=== PATIENT | male | born 1945 | race Caucasian/White ===

== ENCOUNTER → 2016-05-27 | Outpatient (CLI) | payer OTHER ==
--- NOTE | 2016-05-27 13:58 | DIAGNOSTIC IMAGING REPORT ---
RIGHT FOOT MIN 3 VIEWS ROUTINE CLINICAL HISTORY: Right foot pain COMPARISON: None. DISCUSSION: No acute fractures are visualized. There is mild osteopenia. There are mild osteoarthritic changes the level the first metatarsal phalangeal joint. There are no erosive or destructive changes. There is a prominent plantar calcaneal spur. There are posterior plantar fascial calcifications. There is a tiny 2 insertional calcification. IMPRESSION: 1. Minor degenerative changes the level the first metatarsal phalangeal joint 2. No acute fractures 3. No erosive or destructive changes are visualized 4. Calcaneal spurring Electronically signed by: Boni Guthrie M.D. 05/27/2016 1:56 PM Dictated Date/Time: 05/27/2016 1:55 PM
== END | disposition home or self-care (01) ==
LOC: C.RAD1850 13:36
PROVIDERS: ATTEND Internal Medicine Cardiovascular Disease
DX: M79.673 Pain in unspecified foot (principal)

== ENCOUNTER → 2017-04-13 | Outpatient (CLI) | payer OTHER ==
[2017-04-13 10:48] LABS: INFLUENZA B ANTIGEN Neg for Influ B (NEG)
== END | disposition home or self-care (01) ==
LOC: C.LAB1850 09:46
PROVIDERS: ATTEND Internal Medicine Pulmonary Disease
DX: R50.9 Fever, unspecified (principal)

== ENCOUNTER 2018-09-14 07:23 | Observation (INO) ==
[2018-09-14] MEDS ORDERED: CEFAZOLIN 1,000 MG/7.5 ML IV PUSH IV ONE (08:15)
[2018-09-14] MEDS ORDERED: LIDOCAINE HCL 1% 20 ML VIAL ONE (08:22)
[2018-09-14] MEDS ORDERED: BUPIVACAINE 0.5 % 5 MG/1 ML PF 10ML VIAL ONE ×2 (08:22→08:28)
[2018-09-14] MEDS ORDERED: BACITRACIN INJ 50,000 UNIT VIAL ONE (08:23)
[2018-09-14] MEDS ORDERED: LACTATED RINGER'S 1,000 ML IV SCH (08:30)
--- NOTE | 2018-09-14 08:33 | History & Physical Bridge Note ---
Date of Service September 14, 2018 History & Physical Bridge Note I have examined the patient, reviewed the History & Physical and in the interval since the performance of the History & Physical I have noted the following changes of clinical significance: no changes noted
--- NOTE | 2018-09-14 08:35 | Pre Anesthesia Assessment ---
Date of Service September 14, 2018 Pre Sedation Assessment Vital Signs Temp Pulse Resp BP Pulse Ox 09/14/18 07:46 36.4 C L 43 L 18 167/79 H 96 Cardiovascular + bradycardic Respiratory + respiratory effort normal Pre-Sedation Airway Assessment Smoking Status: Never smoker Hx Sleep Apnea: No Hx Difficult Intubation: No Short, Thick Neck: No Thyromental Distance: > or= 3.5 Finger Breadths Oral Cavity: + WNL Mallampati Class: III ASA: ASA3 Procedure Planning Contraindications for Sedation: none Current Medications Reviewed: Yes Notes The planned sedation has been discussed with the patient. Informed Consent was obtained. I have identified the patient, determined the appropriateness of sedation and have assessed the patient immediately prior to the procedure. All medicine(s) and interventions are by my order.
[2018-09-14] MEDS ORDERED: fentaNYL citrate 100 MCG/2 ML VIAL ONE (08:37)
[2018-09-14] MEDS ORDERED: MIDAZOLAM HCL 5 MG/ML 1 ML VIAL ONE (08:37)
[2018-09-14] MEDS ORDERED: CEFAZOLIN 250 MG/ML 1 GM VIAL ONE (08:59)
[2018-09-14] MEDS ORDERED: OXYCODONE HCL IR 5 MG TAB (IMMEDIATE RELEASE) PO PRN (10:23)
[2018-09-14] MEDS ORDERED: ACETAMINOPHEN 325 MG TAB PO PRN (10:23)
--- NOTE | 2018-09-14 10:23 | Procedure Note ---
Procedure Note Date of Service September 14, 2018 Note Procedure performed: Implantation of dual-chamber permanent pacemaker Staff stone repairer: Cody Justice MD Indication: The patient is a 73-year-old gentleman with a recent history of exercise intolerance, fatigue and bradycardia. He is noted on outpatient monitoring to have severe bradycardia and 2-1 heart block with significant for history and conduction disease. He still be a good candidate for a permanent pacemaker due to symptomatic nonreversible AV node dysfunction. A dual-chamber device was selected as patient is currently in sinus rhythm and wished to maintain AV synchrony Procedure in detail: The patient was informed of the risks benefits and alternatives to the intended procedure and she wished to proceed. He was taken to the electrophysiology suite in a fasting state. A preoperative antibiotic had been administered. The patient was monitored electrocardiographically throughout today's procedure and conscious sedation was administered per protocol. The left upper pectoral area is prepped and draped in usual sterile fashion. This area was anesthetized using subcutaneous administration of a xylocaine solution. An incision was made at this site and carried down to the prepectoralis fascia using sharp dissection. Electrocautery was also employed for dissection as well as for hemostasis. A device pocket was fashioned tissues above the pectoralis muscle. Subsequent to this maneuver the left axillary vein was accessed using modified Seldinger technique. Sheaths were placed over guidewires at this site and used to facilitate passage of the pacing leads to the respective chambers under fluo roscopic guidance. This included right atrial and right ventricular leads. Adequate sensing and threshold parameters were obtained prior to Active fixation of the leads to the endocardial surface. The proximal portion leads were then sutured the prepectoral fascia using nonabsorbable suture. The device pocket was irrigated with antibiotic solution. The leads were then attached to the device. The device and leads were then placed in the pocket and pocket was closed in 3 layers of absorbable suture. Steri-Strips and sterile dressing were applied. The device was tested noninvasively prior to conclusion the procedure. The patient tolerated procedure well there no immediate complications. Equipment used: New pulse generator: Porcelain Mixer Medtronic. Model number: [id number] erendira lakeisha hendrix [id number] Right atrial lead: Porcelain Mixer Medtronic. Model number: [id number] serial number [id number] Right ventricular lead: Porcelain Mixer Medtronic. Model number: [id number] serial number [id number] Measured data: Right atrial lead: P waves measured 1.4 mV. Pacing thresholds 0.8 V at 0.4 ms with pacing impedance of 461 ohms Right ventricular lead: R waves measured 4.1 mV. Pacing threshold 1 V at 0.4 ms with a pacing impedance of 798 ohms Impression: Successful implantation of dual-chamber permanent pacemaker Coding
[2018-09-14] MEDS ORDERED: PNEUMOCOCCAL POLYSACCHARIDES 25 MCG/0.5 ML VIAL/SYR IM ONE (12:15)
[2018-09-14] MEDS ORDERED: PNEUMOCOCCAL ADMINISTRATION CHARGE ONE (12:15)
[2018-09-14] MEDS ORDERED: ZOLPIDEM TARTRATE 5 MG TAB PO PRN (17:24)
[2018-09-14] MEDS: CEFAZOLIN 2000MG 2,000 MG/15 ML SYR IV SCH (17:44)
[2018-09-15] MEDS: CEFAZOLIN 2000MG 2,000 MG/15 ML SYR IV SCH (02:38)
--- NOTE | 2018-09-15 07:27 | XRay Report ---
XR chest 2V routine CLINICAL HISTORY: Pacemaker. COMPARISON STUDY: No previous studies for comparison. FINDINGS: Dual-lead left subclavian pacemaker is in place. There is no pneumothorax. Lead tips projec t over the right atrial appendage and right ventricle. There are trace bilateral pleural effusions wi th subtle interstitial thickening. Mild to moderate cardiomegaly is noted. No consolidation to sugges t pneumonia. IMPRESSION: 1. No pneumothorax following placement of a dual-lead left subclavian pacemaker. 2. Mild interstitial pulmonary edema with trace bilateral pleural effusions. 3. Mild to moderate cardiomegaly. Electronically signed by: Joshua Piña M.D. 09/15/2018 7:25 AM
--- NOTE | 2018-09-15 07:57 | Discharge Summary ---
Date of Service September 15, 2018 Admission HPI Per Admitting Provider Patient is a 73-year-old gentleman without any known cardiac history who is been experiencing symptoms of fatigue and mild exercise intolerance. He was noted on outpatient monitoring to have evidence of Mobitz 2 conduction. Principal Diagnosis Heart block Discharge Exam On the day of discharge the device implant site appear to be healing well. No hematoma. No significant erythema. No ecchymosis or drainage. Lungs: Mostly clear to auscultation bilaterally. Discharge Data Allergies Allergy/AdvReac Type Severity Reaction Status Date / Time No Known Allergies Allergy Verified 09/14/18 08:08 Procedures Performed Operation Date: 09/14/18 09:00 Actual Procedures p Pacer with A/V Leads (Dual) - Dudley Justice MD Ordered Studies 09/14/18 07:30 EP Lab Images for PACS ONCE Hospital Course (1) Heart block: On the day of admission the patient underwent implantation of a dual- chamber Medtronic pacemaker. The procedure was uncomplicated. The next morning the wound appeared to be healing well. Chest x-ray did not demonstrate any evidence of complication or pneumothorax. Lead position appeared adequate. Device interrogation revealed normal function of both leads. Total Time Total Time Spent Total Time Spent (In Minutes): 10 Total Time Includes: Examination of the Patient and Medication Reconciliation Discharge Plan Discharge Items Patient Disposition: Home - Self-Care Reason For Visit: DUAL CHAMBER PACEMAKER Discharge Diagnosis: heart block Discharge Goals: Therapeutic intervention Activity: Per 'Additional Instructions' section Activity Comment: No lifting left arm above shoulder or behind neck for 6 weeks Lifting: No more than 10 pounds Bathing: Keep incision dry Driving/Machine Use: No limitations Non-emergency contact: Timber Framer Call non-emergency contact if: your pain is worsening, you have a fever, your wound has increased redness and your wound has increased drainage Follow-up/Referrals: Quentin Sawant MD [Primary Care Provider] - Diet: Regular Addtl Provider Instructions: Keep wound dry and steri-strip intact until f/u next week. No lifitng left arm above shoulder or behind neck for 6 weeks. Prescriptions: No Action No Known Home Medications RF: 0 Stand-Alone Forms: [facility] [employer] Discharge Orders: Discharge Order (Routine); Ordered 09/15/18 Ordered By: Dudley Justice Admission Data Admit Date/Time: 09/14/18 10:41 Attending Provider: Dudley Justice Admit Provider: Dudley Justice Primary Care Provider: Quentin Sawant Service: Telemetry Other Pending Studies at Discharge: No
== END 2018-09-15 09:45 | disposition home or self-care (01) ==
LOC: 2S 07:23 → ASU 07:23

== ENCOUNTER 2021-03-10 09:45 | Inpatient (IN) ==
[2021-03-10] MEDS ORDERED: SODIUM CHLORIDE 0.9% 1000ML 1,000 ML IV STA (10:29)
[2021-03-10 11:07] LABS: Basophils # (auto) 0.01 K/uL (0-0.2); Basophils % (auto) 0.1 %; Eosinophils # (auto) 0.01 K/uL (0-0.5); Eosinophils % (auto) 0.1 %; Hematocrit (blood only) 41.6 % (42-52); Hemoglobin 13.7 g/dL (14.0-18.0); Immature Granulocytes # (auto) 0.01 K/uL (0.00-0.02); Immature Granulocytes % (auto) 0.1 %; Lymphocytes # (auto) 0.78 K/uL (1.2-3.4); Lymphocytes % (auto) 11.3 %; Mean Corpuscular Hemoglobin 31.6 pg (25-34); Mean Corpuscular Hgb Conc 32.9 g/dL (32-36); Mean Corpuscular Volume 96.1 fL (80-100); Mean Platelet Volume 11.5 fL (7.4-10.4); Monocytes # (auto) 0.37 K/uL (0.11-0.59); Monocytes % (auto) 5.4 %; Neutrophils # (auto) 5.71 K/uL (1.4-6.5); Platelet Count 156 K/uL (130-400); RDW Coefficient of Variation 15.5 % (11.5-14.5); RDW Standard Deviation 54.1 fL (36.4-46.3); Red Blood Count 4.33 M/uL (4.7-6.1); White Blood Count 6.89 K/uL (4.8-10.8)
--- NOTE | 2021-03-10 11:07 | XRay Report ---
SINGLE VIEW CHEST CLINICAL HISTORY: Generalized abdominal pain. FINDINGS: An AP, portable, upright chest radiograph is compared to study dated 09/15/2018. A 2-lead ca rdiac pacemaker is unchanged in position and partially obscures the left upper chest. The heart is en larged noting atherosclerotic calcification of the thoracic aorta. The pulmonary vasculature is nonco ngested. Chronic interstitial thickening is similar to previous. Scarring/atelectasis is noted at the lung bases. No airspace consolidation or large pleural effusion is identified. No pneumothorax is se en. The skeletal structures are osteopenic. The bony thorax is grossly intact. IMPRESSION: 1. Cardiomegaly and cardiac pacemaker with no radiographic evidence of congestive failure. 2. No airspace consolidation or large pleural effusion is identified. ACT 112: Negative or not required by law. Electronically signed by: Luis Daniel Marques M.D. 03/10/2021 11:05 AM
[2021-03-10 11:35] LABS: Albumin Globulin Ratio 1.1 (0.9-2); Albumin Level 3.7 gm/dl (3.4-5.0); Calcium 9.5 mg/dl (8.5-10.1); Creatinine Clr Calc Pharmacy 71.5 ml/min; Est GFR (African American) 84.2 ml/min; Est GFR (Non-African American) 72.6 ml/min; Globulin 3.5 gm/dl (2.5-4.0); Potassium 4.9 mmol/L (3.5-5.1); Total Protein 7.2 gm/dl (6.4-8.2); Troponin I 0.105 ng/ml (0-0.045)
[2021-03-10] MEDS ORDERED: OPTIRAY 320 100ml IV ONE (12:00)
--- NOTE | 2021-03-10 12:35 | CT Scan Report ---
ABDOMEN AND PELVIS CT WITH IV CONTRAST CT DOSE: 662.21 mGy.cm HISTORY: Subacute upper abdominal pain R>L upper abd pain x 2 weeks TECHNIQUE: Multiaxial CT images of the abdomen and pelvis were performed following the IV administrat ion of 91 cc of Optiray, A dose lowering technique was utilized adhering to the principles of ALARA. COMPARISON STUDY: Abdominal ultrasound 03/09/2021 FINDINGS: Cardiac megaly with partially imaged pacer leads. Small right greater than left pleural eff usions with mild dependent subsegmental bibasilar atelectasis. Pulmonary edema. 5 mm solid nodule the basal left lower lobe, image 38. 4 mm solid nodule of the lateral segment right middle lobe. There i s no pneumatosis or pneumoperitoneum. The spleen, pancreas and adrenal glands are unremarkable. Gallb ladder distention with cholelithiasis and mild wall thickening. Hepatic steatosis. Mixing artifact is noted within the portal vein. Cysts of the bilateral kidneys measure up to 3.5 cm on the right. 7.4 x 7.0 x 6.3 cm exophytic cyst o f the superior pole left kidney with a calcified septation. There is no hydronephrosis. Prostamegaly. Urinary bladder wall thickening with partial distention. Atherosclerosis of the aorta without aneury sm. No adenopathy. No bowel obstruction or bowel wall thickening. Colonic diverticulosis without acute diverticulitis. N ormal appendix. Small volume of abdominal pelvic ascites with mild generalized body wall edema. 1.6 c m subcortical cyst of the right pubic body. Moderate bilateral hip osteoarthritis. Bilateral hip join t effusions are likely degenerative, right greater than left with associated periarticular calcificat ions. IMPRESSION: 1. Cardiomegaly with fluid overload manifested by pulmonary edema, small layering pleural effusions, small volume of abdominal pelvic ascites with body wall edema. 2. Cholelithiasis with gallbladder distention and mild wall thickening which may be secondary to the aforementioned fluid overload versus acute cholecystitis. 3. Mildly complex 7.4 cm cyst of the left kidney. 4. Prostamegaly with chronic bladder outlet obstruction. 5. Colonic diverticulosis. 6. Additional findings as above. ACT 112: Negative or not required by law. The above report was generated using voice recognition software. It may contain grammatical, syntax o r spelling errors. Electronically signed by: Cory Asher M.D. 03/10/2021 12:33 PM
--- NOTE | 2021-03-10 13:18 | Emergency Department Note ---
Impression & Plan Elevated troponin, Cholelithiasis, Cardiomegaly, Fluid overload, Hyperbilirubinemia ED Provider Note CHIEF COMPLAINT: Epigastric pain, cholelithiasis HPI: This patient is a 76-year-old male who presents emergency department with complaints of right upper quadrant abdominal pain intermittently over the last 2 weeks. Patient states the pain initially started on the left upper side of the abdomen and felt like renal colic he had had in the past. The only thing different was that he was nauseated and "nearly vomited." Patient states that sometimes after eating the pain actually is better, but shortly thereafter is worsened. Patient did start Prilosec which he thinks helped. He is concerned that he may be suffering from gallstone pancreatitis. He did see his mounter smoking pipe yesterday ordered laboratory work and an ultrasound of the right upper quadrant. The patient is noted to have cholelithiasis. Patient notes a history of heart block and does have a pacemaker. He denies any significant chest pain or dyspnea with exertion. He denies any recent fevers, chills, cough. REVIEW OF SYSTEMS: A review of systems was performed with positives and pertinent negatives listed in the history of present illness. 10 systems were reviewed and are otherwise negative. ALLERGIES: see below MEDICATIONS: see below PMH: see below SOCIAL HISTORY: see below DDx: Appendicitis, diverticulitis, UTI, obstruction, mesenteric ischemia, aortic pathology, inflammatory bowel disease, renal colic, PUD, pancreatitis, biliary pathology, hernia, volvulus, constipation, as well as other pathologies. PHYSICAL EXAM: Vital signs reviewed. General: Well-appearing 76 yo male, in no significant distress. HEENT: No scleral icterus, PERRLA, neck supple. Moist mucous membranes. Cardiovascular: Regular rate and rhythm, no extra sounds. Pulmonary: Faint crackles to the bases bilaterally, normal work of breathing. Saturating well on room air. Abdomen: Soft, nontender, nondistended, positive bowel sounds. Musculoskeletal: Atraumatic, no peripheral edema. Neurologic: Patient awake alert and oriented x 3 Skin: Warm, dry, no rash EMERGENCY DEPARTMENT COURSE/MDM: This patient was evaluated and appeared to be in no significant distress. IV access was obtained and laboratory work was drawn. Patient was placed on the cardiac tech and noted to be in a ventricular paced rhythm. Laboratory work reveals normal WBC, hemoglobin of just under 14. Troponin is mildly elevated at 0.1 with a bilirubin of 3.0. Ct scan of the abdomen pelvis was performed and read as low with fluid overload noted. Bilateral pleural effusions are noted. Case was discussed with general surgery, Dr. Nunez who evaluated the patient. Abnormal laboratory work was discussed with both the patient and the hospitalist service, Dr. Parks and Carlos Alberto Martini PA-C. Patient's certified income tax preparer, Dr. Torres was updated to the findings. Patient will be evaluated for admission and further management. Etiology of the abdominal discomfort may be related to the gallbladder however he does have a history of elevated bilirubin. I do feel that further cardiac evaluation will be necessary. MONITORING: An order for cardiac monitoring was placed and the patient is noted to be in a ventricularly paced rhythm at 50 beats per minute. RADIOLOGY: see below EKG: see below DISPOSITION: admit Past Med/Surg History Medical History Cardiomegaly Cholelithiasis Elevated troponin Heart block Hyperbilirubinemia Pilonidal cyst RUQ abdominal pain Social History Smoking Status: Never smoker Hx Alcohol Use: Yes Alcohol type: wine Hx Substance Use: No Preferred Language: Swedish Communication Ability: Effective Machine Tailer Required: No Beliefs That Will Affect Care: None Current Living Situation: Spouse Feels Safe at Home: Yes Assistive Devices: Glasses Allergies Allergies Allergy/AdvReac Type Severity Reaction Status Date / Time No Known Allergies Allergy Verified 03/10/21 10:49 Home Meds Home Medications Medication Instructions Recorded Confirmed No Known Home Medications 09/25/20 03/10/21 Results & Data (ED) Vital Signs Vital Signs - 24 hr 03/10/21 09:49 03/10/21 10:52 03/10/21 11:33 Temperature 36.5 C Temperature Source Oral Pulse Rate 84 Pulse Rate [Right Finger] 52 L Pulse Rhythm [Right Finger] Regular Pulse Strength [Right Finger] Normal Respiratory Rate 16 16 Respiratory Effort / Characteristics Non-Labored Non-Labored Respiratory Depth Normal Normal Blood Pressure 146/82 H Blood Pressure [Right Arm] 135/97 Blood Pressure Mean 103 Blood Pressure Mean [Right Arm] 109 Blood Pressure Position [Right Arm] Sitting Pulse Oximetry 97 99 Oxygen Delivery Method Room Air Room Air Room Air Sepsis Recent Fever Within 48 Hours No Sepsis New/Unexplained Change in Mental Status No Sepsis Action Taken by Nursing No Action Required Home Medications Current Medication List: was personally reviewed by me Laboratory Data Attestation: I reviewed the patient's lab results. Result diagrams: 03/10/21 10:45 03/10/21 10:45 Lab Results 03/10/21 03/10/21 03/10/21 Range/Units 10:45 10:45 10:50 WBC 6.89 (4.8-10.8) K/uL RBC 4.33 L (4.7-6.1) M/uL Hgb 13.7 L (14.0-18.0) g/dL Hct 41.6 L (42-52) % MCV 96.1 (80-100) fL MCH 31.6 (25-34) pg MCHC 32.9 (32-36) g/dL RDW Std Deviation 54.1 H (36.4-46.3) fL RDW Coeff of Mariel 15.5 H (11.5-14.5) % Plt Count 156 (130-400) K/uL MPV 11.5 H (7.4-10.4) fL Immature Gran % (Auto) 0.1 % Neut % (Auto) 83.0 % Lymph % (Auto) 11.3 % Brantley % (Auto) 5.4 % Eos % (Auto) 0.1 % Baso % (Auto) 0.1 % Neut # (Auto) 5.71 (1.4-6.5) K/uL Lymph # (Auto) 0.78 L (1.2-3.4) K/uL Brantley # (Auto) 0.37 (0.11-0.59) K/uL Eos # (Auto) 0.01 (0-0.5) K/uL Baso # (Auto) 0.01 (0-0.2) K/uL Immature Gran # (Auto) 0.01 (0.00-0.02) K/uL Sodium 139 (136-145) mmol/L Potassium 4.9 D (3.5-5.1) mmol/L Chloride 109 H (98-107) mmol/L Carbon Dioxide 23 (21-32) mmol/L Anion Gap 7.0 (3-11) BUN 16 (7-18) mg/dl Creatinine 0.99 (0.6-1.4) mg/dl Est Cr Clr Drug Dosing 71.5 ml/min Est GFR ( Amer) 84.2 ml/min Est GFR (Non-Af Amer) 72.6 ml/min BUN/Creatinine Ratio 16.0 (10-20) Glucose 104 H (70-99) mg/dl Calcium 9.5 (8.5-10.1) mg/dl Total Bilirubin 3.0 H (0.2-1) mg/dl AST 32 (15-37) U/L ALT 40 (12-78) Alkaline Phosphatase 58 (45-117) U/L Troponin I 0.105 H* (0-0.045) ng/ml Total Protein 7.2 (6.4-8.2) gm/dl Albumin 3.7 (3.4-5.0) gm/dl Globulin 3.5 (2.5-4.0) gm/dl Albumin/Globulin Ratio 1.1 (0.9-2) Lipase 145 (73-393) U/L SARS-CoV-2, RNA, NAAT NEGATIVE (NEGATIVE) Administered Medications Sodium Chloride (Nss 1000ml) 1,000 mls @ 80 mls/hr IV .[id number] EDUARDO Stop: 03/11/21 16:30 Last Admin: 03/10/21 17:02 Dose: 125 mls/hr Documented by: [id number] Discontinued Medications Sodium Chloride (Nss 1000ml) 1,000 mls @ 100 mls/hr IV .Q10H STA Stop: 03/10/21 20:28 Last Infusion: 03/10/21 17:05 Dose: 0 mls/hr Documented by: [id number] Infusion: 03/10/21 17:05 Dose: 0 mls/hr Documented by: [id number] Admin: 03/10/21 10:47 Dose: 100 mls/hr Documented by: [id number] Piperacillin Sod/Tazobactam (Sod 3.375 gm/ Dextrose) 115 mls @ 230 mls/hr IV NOW ONE; Protocol Stop: 03/10/21 17:29 Last Infusion: 03/10/21 18:11 Dose: 0 mls/hr Documented by: [id number] Admin: 03/10/21 17:36 Dose: 230 mls/hr Documented by: [id number] Ioversol (Optiray 320 100ml) 91 ml IV ONCE ONE Stop: 03/10/21 12:01 Last Admin: 03/10/21 12:01 Dose: 91 ml Documented by: [id number] Imaging Data Radiologist's Impression: Chest X-Ray 03/10/21 10:29 SINGLE VIEW CHEST CLINICAL HISTORY: Generalized abdominal pain. FINDINGS: An AP, portable, upright chest radiograph is compared to study dated 09/15/2018. A 2-lead cardiac pacemaker is unchanged in position and partially obscures the left upper chest. The heart is enlarged noting atherosclerotic calcification of the thoracic aorta. The pulmonary vasculature is noncongested. Chronic interstitial thickening is similar to previous. Scarring/atelectasis is noted at the lung bases. No airspace consolidation or large pleural effusion is identified. No pneumothorax is seen. The skeletal structures are osteopenic. The bony thorax is grossly intact. IMPRESSION: 1. Cardiomegaly and cardiac pacemaker with no radiographic evidence of duane estive failure. 2. No airspace consolidation or large pleural effusion is identified. ACT 112: Negative or not required by law. Electronically signed by: Luis Daniel Marques M.D. 03/10/2021 11:05 AM Abdomen/Pelvis CT 03/10/21 11:[address] WITH IV CONTRAST CT DOSE: 662.21 mGy.cm HISTORY: Subacute upper abdominal pain R>L upper abd pain x 2 weeks TECHNIQUE: Multiaxial CT images of the abdomen and pelvis were performed following the IV administration of 91 cc of Optiray, A dose lowering technique was utilized adhering to the principles of ALARA. COMPARISON STUDY: Abdominal ultrasound 03/09/2021 FINDINGS: Cardiac megaly with partially imaged pacer leads. Small right greater than left pleural effusions with mild dependent subsegmental bibasilar atelectasis. Pulmonary edema. 5 mm solid nodule the basal left lower lobe, image 38. 4 mm solid nodule of the lateral segment right middle lobe. There is no pneumatosis or pneumoperitoneum. The spleen, pancreas and adrenal glands are unremarkable. Gallbladder distention with cholelithiasis and mild wall thickening. Hepatic steatosis. Mixing artifact is noted within the portal vein. Cysts of the bilateral kidneys measure up to 3.5 cm on the right. 7.4 x 7.0 x 6.3 cm exophytic cyst of the superior pole left kidney with a calcified septation. There is no hydronephrosis. Prostamegaly. Urinary bladder wall thickening with partial distention. Atherosclerosis of the aorta without aneurysm. No adenopathy. No bowel obstruction or bowel wall thickening. Colonic diverticulosis without acute diverticulitis. Normal appendix. Small volume of abdominal pelvic ascites with mild generalized body wall edema. 1.6 cm subcortical cyst of the right pubic body. Moderate bilateral hip osteoarthritis. Bilateral hip joint effusions are likely degenerative, right greater than left with associated periarticular calcifications. IMPRESSION: 1. Cardiomegaly with fluid overload manifested by pulmonary edema, small layering pleural effusions, small volume of abdominal pelvic ascites with body wall edema. 2. Cholelithiasis with gallbladder distention and mild wall thickening which may be secondary to the aforementioned fluid overload versus acute cholecystitis. 3. Mildly complex 7.4 cm cyst of the left kidney. 4. Prostamegaly with chronic bladder outlet obstruction. 5. Colonic diverticulosis. 6. Additional findings as above. ACT 112: Negative or not required by law. The above report was generated using voice recognition software. It may contain grammatical, syntax or spelling errors. Electronically signed by: Cory Asher M.D. 03/10/2021 12:33 PM Blood Pressure Blood Pressure Findings: Elevated blood pressure Blood Pressure Disposition: further management by hospitalist Discharge Plan Visit Data Chief Complaint: Abdominal Pain Stated Complaint: ABD PAIN ED Provider: Adelaide Ye Discharge Problem: Elevated troponin, Cholelithiasis, Cardiomegaly, Fluid overload, Hyperbilirubinemia Patient Disposition: Admitted As Inpatient Discharge Instructions Interventions: ED Discharge Assessment Last Done: 03/10/21 16:07 Discharge Problem: Cholelithiasis Qualifiers: Cholelithiasis location: gallbladder Cholecystitis presence: without cholecystitis Biliary obstruction: without biliary obstruction Qualified Code(s): K80.20 - Calculus of gallbladder without cholecystitis without obstruction Fluid overload Qualifiers: Hypervolemia type: unspecified Qualified Code(s): E87.70 - Fluid overload, unspecified
--- NOTE | 2021-03-10 13:54 | History & Physical Report ---
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 Nunez tomorrow for a cholecystectomy. Patient does not appear to be septic nor is he febrile. His total bilirubin is elevated, but he has a history of Giilbert's disease. His ALT and AST are within normal limits, he does not appear to have significant biliary obstruction. Dr. Hewitt is involved in his care. Dr. Nunez has already met with the patient in the ER. Recommend the following: -- Patient will be admitted to observation status. -- Monitor daily labs. -- No need for ERCP or MRCP with normal transaminase levels. -- IV Zosyn. -- Antiemetics as needed. -- Clear liquid diet, NPO at midnight. -- Plan on cholecystectomy tomorrow. (3) Hyperbilirubinemia: Plan: He has a history of Gilbert's disease but total bilirubin is up to 3.0 now, small amount of ascites on imaging. (4) Elevated troponin: Plan: He is noted to have an elevated Troponin I and his EKG shows newly diagnosed Atrial Flutter with a V paced rhythm. He is completely asymptomatic from a cardiac standpoint -- most likely because his rate is controlled, he is paced from the RV. -- His [id number] is 3 based on his age and atherosclerosis of the aorta. -- residential anticoagulation is indicated, but will defer until after surgery. -- Echocardiogram ordered. (5) Cardiomegaly: Plan: Patient with small bilateral pleural effusion, ascites on imaging, and he paces from the RV most of the time resulting in a wide QRS duration (194 msec) -- Echocardiogram ordered to evaluate cardiac structure, wall motion, and cardiac function. (6) New onset atrial flutter: Plan: His EKG shows newly diagnosed Atrial Flutter with a V paced rhythm. He is completely asymptomatic from a cardiac standpoint -- most likely because his rate is controlled, he is paced from the RV. -- His [id number] is 3 based on his age and atherosclerosis of the aorta. -- long term care social worker anticoagulation is indicated, but will defer until after surgery. History of Present Illness Chief Complaint: 1. RUQ pain. 2. Symptomatic Cholelithiasis/Cholecystitis. 3. Elevated Troponin I. Primary Care Provider: MD Dr. 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 Patient had the onset of a sharp left-sided abdominal pain approximately 2 weeks ago, he suspected that it was ureteral colic and that he was going to pass a kidney stone. He had 1 episode of this that evening, and had recurrent left sided abdominal pain which seemed to be further down and has lower abdomen. He did not pass any stones to his knowledge. However, over the ensuing days, the patient noticed some discomfort, fullness in the RUQ and intermittent nausea without vomiting. He states that his abdomen feels distended, but it does not look distended to him. He and his ate lunch at a [place] restaurant and he had their chicken soup (he stated it was a rather heavy meal, somewhat like a stew). following that meal, he noticed an increase in his right upper quadrant discomfort and some nausea. At its worst, he rates the pain as a 5/10 on a scale of 0-10. the discomfort does not radiate into his right shoulder blade, or his back. He is uncertain if it radiates to his right shoulder or right lateral chest because of his torn right rotator cuff causing symptoms in his right shoulder and lateral chest at times. Sometimes his symptoms seem to be exacerbated by eating, and other times they do not. He has not had any prolonged episodes of discomfort. He has not had any vomiting at all. He denies any fevers, chills, or rigors. He has not had any change in his bowel habits -- no diarrhea or constipation. He has not had any melena or hematochezia. Patient has not had any urinary symptoms despite having his left- sided "renal colic" nor did he notice any hematuria. Patient took [id number] Omeprazole x 5 days but is uncertain if this helped him in any way. Patient does not otherwise take any medications on a routine basis. He has no known drug allergies. 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 Patient's family history includes both his paternal grandfather and his father dying of pancreatic cancer at advanced ages. Patient has been working with Dr. Hewitt in Gastroenterology regarding the symptoms. A RUQ Ultrasound performed on 03/09/2021 showed: The liver is diffusely homogenous with normal contour and echogenicity. No focal mass lesions are seen. No intrahepatic ductal dilatation is seen. Linear hyperechoic foci with posterior shadowing are identified layering dependently within the gallbladder, which are consistent with gallstones. The gallbladder wall is not thickened. There is no pericholecystic fluid present. The common duct measures 0.4 cm in diameter at the level of the hepatic artery. The pancreas is not well visualized secondary to overlying bowel gas. Right kidney measures 12.2 cm in length. No hydronephrosis is seen. There are multiple renal cysts, measuring up to 2.5 x 3.3 x 2.4 cm with thin septations. Small amount of ascites is seen throughout the abdomen. IMPRESSION: Cholelithiasis is seen without renee bladder wall thickening. Patient does note mild pain with pressure. Findings are equivocal for acute cholecystitis. Because of ongoing symptoms and the presence of symptomatic cholelithiasis -- patient was advised to come into the emergency room for further evaluation, surgical evaluation and treatment. Evaluation in the ER shows a mild anemia with a hemoglobin of 13.7 g/dL and hematocrit of 41.6%. WBC is within normal limits. BUN is normal at 16 mg/dL with a creatinine of 0.99 mg/dL. His total bilirubin is elevated at 3.0 mg/dL with a normal AST of 32 u/L and a normal ALT of 40 u/L. Lipase level is normal at 145 u/L. Patient's Troponin I level is elevated at 0.105 ng/mL -- but he has not had any cardiac or limiting cardiopulmonary symptoms whatsoever. Allergies Allergy/AdvReac Type Severity Reaction Status Date / Time No Known Allergies Allergy Verified 03/10/21 10:49 Home Medications Medication Instructions Recorded Confirmed Type No Known Home Medications 09/25/20 03/10/21 History Past Med/Surg History Medical History (Updated 03/10/21 @ 15:25 by Adelaide Ye MD) Cardiomegaly Cholelithiasis Elevated troponin Heart block Hyperbilirubinemia Pilonidal cyst RUQ abdominal pain Social History Smoking Status: Never smoker Beliefs That Will Affect Care: None Current Living Situation: Spouse Feels Safe at Home: Yes Assistive Devices: None Review of Systems Review of Systems: Review of systems is unremarkable with the exception of what is mentioned in his HPI. He is physically active on a daily basis and has not experienced any limiting cardiopulmonary symptoms at any time. He specifically denies any exertional chest pain, heaviness, tightness, pressure, or discomfort. Denies any exertional neck, jaw, back, or arm pain. He has not had any shortness of breath, unusual dyspnea on exertion, orthopnea, or PND. He has not had any recent palpitations. No syncope or near syncope. Patient can climb more than 3 flights of stairs with only mild stable dyspnea that anyone would experience walking up 3 flights of stairs. He recovers his breathing very quickly. Physical Exam Physical Exam: Vital signs are stable. GENERAL: Patient in no acute distress. HEENT: Head is atraumatic, normocephalic. Sclerae anicteric. EOM's intact. Facies symmetric. No perioral cyanosis. Mucous membranes appear tacky. NECK: No JVD. Carotid upstrokes are + 2 bilaterally without obvious bruits. CHEST/LUNGS: Clear to auscultation throughout all lung zuniga. No wheezes, rales, or crackles. CVS: S1 and S2 are regular, bradycardic at 52 bpm without obvious murmurs, gallops, or rubs. PMI is nondisplaced. No lifts, heaves, or thrills. No abdominal aortic or renal bruits. Palpable pacemaker generator present left subclavian fossa. ABDOMINAL EXAM: Bowel sounds are present. Abdomen does not appear to be disten ded. Mild tenderness to palpation in the right upper quadrant. No masses or organomegaly. EXTREMITIES: No clubbing or cyanosis. No edema. Intact posterior tibial and radial pulses bilaterally. NEUROLOGIC EXAM: Patient is awake, alert, and oriented. Pleasant and cooperative. Answers questions appropriately. Speech is clear. Normal movement in all 4 extremities. Gait pattern was not assessed. Temporary Administrative Assistant: -- V-paced rhythm. -- Uncertain underlying rhythm. EKG 03/10/21: -- Ventricular paced rhythm. -- Underlying rhythm appears to be atrial flutter. Results & Data Results & Data ([place]) Vital Signs (Past 12 Hours) Vital Signs Temp Pulse Pulse Resp BP BP Pulse Ox 03/10/21 11:33 52 L 16 135/97 99 03/10/21 09:49 36.5 C 84 16 146/82 H 97 Laboratory Results Laboratory Results - last 24 hr 03/10/21 03/10/21 03/10/21 10:45 10:45 10:50 WBC 6.89 RBC 4.33 L Hgb 13.7 L Hct 41.6 L MCV 96.1 MCH 31.6 MCHC 32.9 RDW Std Deviation 54.1 H RDW Coeff of Mariel 15.5 H Plt Count 156 MPV 11.5 H Immature Gran % (Auto) 0.1 Neut % (Auto) 83.0 Lymph % (Auto) 11.3 [place] % (Auto) 5.4 Eos % (Auto) 0.1 Baso % (Auto) 0.1 Neut # (Auto) 5.71 Lymph # (Auto) 0.78 L [place] # (Auto) 0.37 Eos # (Auto) 0.01 Baso # (Auto) 0.01 Immature Gran # (Auto) 0.01 Sodium 139 Potassium 4.9 D Chloride 109 H Carbon Dioxide 23 Anion Gap 7.0 BUN 16 Creatinine 0.99 Est Cr Clr Drug Dosing 71.5 Est GFR ( Amer) 84.2 Est GFR (Non-Af Amer) 72.6 BUN/Creatinine Ratio 16.0 Glucose 104 H Calcium 9.5 Total Bilirubin 3.0 H AST 32 ALT 40 Alkaline Phosphatase 58 Troponin I 0.105 H* Total Protein 7.2 Albumin 3.7 Globulin 3.5 Albumin/Globulin Ratio 1.1 Lipase 145 SARS-CoV-2, RNA, NAAT NEGATIVE Diagnostic Findings CT SCAN ABD/PELVIS 03/10/21: FINDINGS: Cardiomegaly with partially imaged pacer leads. Small right greater than left pleural effusions with mild dependent subsegmental bibasilar atelectas is. Pulmonary edema. 5 mm solid nodule the basal left lower lobe, image 38. 4 mm solid nodule of the lateral segment right middle lobe. There is no pneumatosis or pneumoperitoneum. The spleen, pancreas and adrenal glands are unremarkable. Gallbladder distention with cholelithiasis and mild wall thickening. Hepatic steatosis. Mixing artifact is noted within the portal vein. Cysts of the bilateral kidneys measure up to 3.5 cm on the right. 7.4 x 7.0 x 6.3 cm exophytic cyst of the superior pole left kidney with a calcified septation. There is no hydronephrosis. Prostamegaly. Urinary bladder wall thickening with partial distention. Atherosclerosis of the aorta without aneurysm. No adenopathy. No bowel obstruction or bowel wall thickening. Colonic diverticulosis without acute diverticulitis. Normal appendix. Small volume of abdominal pelvic ascites with mild generalized body wall edema. 1.6 cm subcortical cyst of the right pubic body. Moderate bilateral hip osteoarthritis. Bilateral hip joint effusions are likely degenerative, right greater than left with associated periarticular calcifications. IMPRESSION: 1. Cardiomegaly with fluid overload manifested by pulmonary edema, small laye ring pleural effusions, small volume of abdominal pelvic ascites with body wall edema. 2. Cholelithiasis with gallbladder distention and mild wall thickening which may be secondary to the aforementioned fluid overload versus acute cholecystitis. 3. Mildly complex 7.4 cm cyst of the left kidney. 4. Prostatomegaly with chronic bladder outlet obstruction. 5. Colonic diverticulosis. 6. Additional findings as above. Code Status & VTE Plan Code Status Full Code VTE Prophylaxis Plan VTE Prophylaxis will be ordered: Yes PG Care Time/CCT Total # of Minutes Spent Total Time Spent with Patient: Total time spent is greater than 50% in coordination of care (as documented) at patient's floor/unit and/or counseling patient:35 Coding Level of Care Code INT OBSERVATION CARE 70M LVL 3 Diagnoses Cholelithiasis K80.20 Biliary obstruction: without biliary obstruction Cholecystitis presence: without cholecystitis Cholelithiasis location: gallbladder Cholecystitis, acute K81.0 Hyperbilirubinemia E80.6 Elevated troponin R77.8 Cardiomegaly I51.7 New onset atrial flutter I48.92 Time Spent (min) 55 (1) Cholelithiasis Biliary obstruction: without biliary obstruction Cholecystitis presence: without cholecystitis Cholelithiasis location: gallbladder Qualified Code(s): K80.20 - Calculus of gallbladder without cholecystitis without obstruction
[2021-03-10 15:19] LABS: Appearance Urine Clear (Clear); Bacteria Urine Automated Negative (Negative); Blood Urine Negative (Negative); Color Urine Dark Yellow; Glucose Urine UA Negative (Negative); Ketones Urine 1+ (Negative); Leukocyte Esterase Urine Negative (Negative); Nitrite Urine Negative (Negative); Protein Urine 1+ (Negative); RBC Urine Automated 0-4 /hpf (0-4); Specific Gravity Urine > 1.045 (1.000-1.030); Urobilinogen Urine Negative (Negative)
[2021-03-10 15:25] LABS: Bilirubin Urine 1+ (Negative)
[2021-03-10] MEDS ORDERED: NITROGLYCERIN SL 0.4 MG/TAB TAB SL PRN (16:46)
[2021-03-10] MEDS ORDERED: MoRPHine SULFATE 2 MG/ML CARP IV PRN (16:46)
[2021-03-10] MEDS ORDERED: MAGNESIUM HYDROXIDE SUSP 30 ML UDC PO PRN (16:46)
[2021-03-10] MEDS ORDERED: ALUMINUM/MAGNESIUM SUSP 30 ML UDC PO PRN (16:46)
[2021-03-10] MEDS ORDERED: POLYETHYLENE (MIRALAX) 17 GM PACK PO PRN (16:46)
[2021-03-10] MEDS ORDERED: ZOLPIDEM TARTRATE 5 MG TAB PO PRN (16:46)
[2021-03-10] MEDS ORDERED: ONDANSETRON INJ 2 MG/ML 2 ML VIAL IV PRN ×2 (16:46→18:57)
[2021-03-10] MEDS ORDERED: KETOROLAC TROMETHAMINE 15 MG/ML VIAL IV PRN (16:46)
[2021-03-10] MEDS ORDERED: PIPERACILLIN/TAZOBACTAM 3.375 GM in DEXTROSE 5% 100 ML IV ONE (17:00)
[2021-03-10] MEDS: SODIUM CHLORIDE 0.9% 1000ML 1,000 ML IV SCH (17:02)
[2021-03-10] MEDS ORDERED: PNEUMOCOCCAL POLYSACCHARIDES 25 MCG/0.5 ML VIAL/SYR IM ONE (17:27)
--- NOTE | 2021-03-10 18:23 | Consultation Report ---
GASTROENTEROLOGY CONSULTATION DATE OF CONSULTATION: 03/10/2021. SEX: Male. RACE: . ATTENDING PHYSICIAN: Lb Parks MD. CONSULTING PHYSICIAN: Johny Hewitt DO. REASON FOR CONSULTATION: Right upper quadrant abdominal pain, nausea, questionable acute cholecystit is. 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 He described symptomatic biliary colic, which he states oc curred following meals and did have right upper quadrant abdominal pain, which he rated as a 4 to 5/1 0 in intensity, which did radiate to his right shoulder at times. He did have worsening nausea over t he past few weeks with this and it did awaken him a few times at night. He did try to use PPI therapy for 5 days, thinking that it may be reflux related, though he did not have significant symptom relie f. After speaking with him on the phone, I did ask him to undergo further testing with laboratory [facility] yesterday including an H and H of 14.0 and 43.2. A blood glucose level of 122, total bilirubin of 2.2, though the remainder of his liver panel and lipase were normal. He also underwent a right u pper quadrant ultrasound yesterday at [facility] and was noted to have cholelithiasis without renee gallbladder wall thickening. He did have mild pain with pressure during the exam. Findings wer e felt to be equivocal for acute cholecystitis. I subsequently discussed the case in detail with Dr. Nunez, who felt that Dr. 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 Upon arrival again he was noted to have a slightly elevated bilirubin of 3.0, though the remainder of his liver panel was normal. He continued to have right upper quadrant abdominal pain r adiating to his right shoulder and he did have a CT scan of the abdomen and pelvis with evidence of c holelithiasis with gallbladder distention and mild wall thickening. There was also noted to be cardi omegaly with fluid overload with pulmonary edema, bilateral pleural effusions and a small volume of a bdominopelvic ascites with body wall edema. He was also noted to have prostatomegaly with chronic bl adder outlet obstruction, mildly complex 7.4 cm cyst of the left kidney and colonic diverticulosis, t oneil no other findings. He was subsequently admitted. Dr. Nunez saw the patient in consultation and recommended laparoscopic cholecystectomy in the a.m. Patient denied any further complaints includin g headaches, blurred vision, syncope, seizures, loss of consciousness, chest pain, palpitation, short ness of breath, cough, dysuria, hematuria, arthralgias, myalgias, numbness or tingling in his extremi ties, skin rash, jaundice, acholic stools, dark urine, pruritus, dysphagia, odynophagia, hematemesis, melena, or hematochezia. He had no further complaints. PAST MEDICAL HISTORY: Significant for heart block, status post pacemaker placement, hyperbilirubinem ia, secondary to Gilbert syndrome, cardiomegaly, cholelithiasis, elevated troponin, new onset atrial flutter, history of pilonidal cyst. PAST SURGICAL HISTORY: Includes pacemaker placement. ALLERGIES: None. MEDICATIONS AT HOME: None. SOCIAL HISTORY: Lives with his . No tobacco or illicit drug use. He has an occasional alcoholi c beverage. FAMILY HISTORY: Negative for GI malignancy or inflammatory bowel disease. REVIEW OF SYSTEMS: As per the HPI. PHYSICAL EXAMINATION: VITAL SIGNS: Temperature 36.7, pulse 68, respirations 16, blood pressure 163/99, pulse ox 97% on marta m air. GENERAL: He is awake and cooperative, sitting up in his bed, eating a clear liquid diet. No acute d istress. HEENT: Head normocephalic, atraumatic. ABDOMEN: Soft, nondistended, no appreciable hepatosplenomegaly. LABORATORY STUDIES AND RADIOGRAPHIC STUDIES: Reviewed in the HPI. IMPRESSION: A 76-year-old male with acute cholecystitis for laparoscopic cholecystectomy i n the a.m. PLAN: I would recommend that the patient continue on IV antibiotics as per the primary team. I woul d recommend he continue on Zofran therapy as per the primary team. I would recommend that he undergo a laparoscopic cholecystectomy tomorrow with intraoperative cholangiogram for further evaluation of any choledocholithiasis, though none was seen on imaging studies today. I will follow his clinical c ourse and make further recommendations as needed. Once again, thanks for allowing me to participate in the care of this patient. If you have any furth er questions please do not hesitate contacting me. Job ID: [id number]
--- NOTE | 2021-03-10 20:02 | Surgery Consultation ---
Date of Consultation March 10, 2021 Assessment & Plan (1) Cholecystitis, acute: Patient has been admitted to the hospital. We will proceed as follows: Antibiotics have been ordered in the form of Zosyn which we will continue perioperatively Patient is allowed clear liquids at the present time. We will make him n.p.o. after midnight tonight. Hydration measures with IV fluids are implemented Analgesics will be provided Antiemetics will be provided Plans are to proceed with cholecystectomy tomorrow with Dr. Nunez. 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 Patient notes that in early February of this year he was having some left-sided abdominal pain that he felt may have represented renal colic. He said that this pain would come and go and ultimately resolved. He does report that he did not pass any kidney stones that he knows of. He subsequently developed right upper quadrant abdominal pain with intermittent nausea. He denies any fevers, shakes, chills. He denies any diarrhea. Patient notes that the symptoms would come and go but over the past 2 to 3 days have gotten markedly worse. Because of this he sought medical care with Dr. Johny Hewitt of gastroenterology. He subsequently underwent a gallbladder ultrasound on 03/09/2021 that showed cholelithiasis without renee gallbladder wall thickening. The study was felt to be equivocal for acute cholecystitis. Because of his ongoing symptoms he presented to the emergency department at [facility] today. It is no over the mention the patient says he has never had any prior abdominal surgeries. At today's emergency room visit the patient did have labs and imaging which I independently reviewed. A chest x-ray showed no evidence of airspace consolidation concerning for pneumonia and there is no evidence of congestive heart failure. He also underwent a CT scan of the abdomen and pelvis. This showed cholelithiasis with gallbladder wall distention and mild gallbladder wall thickening. Labs include a CBC her white blood cell count was noted be normal. His hemoglobin and hematocrit were 13.7 and 41.6. Platelet count was noted to be within the normal range. Chemistry profile showed sodium, potassium, BUN, and creatinine were all within the normal range. Patient was noted to have an elevated total bilirubin of 3.0 but he does report a history of Vick Bears disease. His transaminases and alkaline phosphatase were not elevated. Lipase was also not elevated. He did have a slight elevation of his troponin at 0.145. Urinalysis was not indicative of infection. A Covid test was known to be negative. An EKG showed a ventricularly paced rhythm. Patient notes that he leads an active lifestyle. He says he is able to ambulate up several flights of steps without any chest pain or decreased exercise capacity. At the time of my interview he was resting comfortably in bed. His pain was well controlled and he was in no distress. Allergies Allergy/AdvReac Type Severity Reaction Status Date / Time No Known Allergies Allergy Verified 03/10/21 10:49 Home Medications Medication Instructions Recorded Confirmed Type No Known Home Medications 09/25/20 03/10/21 History Patient History Medical History Cardiomegaly Cholelithiasis Elevated troponin Heart block Hyperbilirubinemia Pilonidal cyst RUQ abdominal pain Social History Smoking Status: Never smoker Hx Alcohol Use: Yes Alcohol type: wine Hx Substance Use: No Preferred Language: Kuwaiti Communication Ability: Effective Detective Bureau Chief Required: No Beliefs That Will Affect Care: None Current Living Situation: Spouse Feels Safe at Home: Yes Assistive Devices: Glasses Review of Systems Constitutional: no fever and no chills Eyes: no problem reported Ear, Nose, Mouth, Throat: no ear pain Respiratory: no cough and no dyspnea Cardiovascular: no chest pain Gastrointestinal: + abdominal pain, + nausea and + vomiting Genitourinary: no dysuria Integumentary: no rash Neurologic: no localized weakness Physical Exam Constitutional: well developed and well nourished; no acute distress Eyes: no conjunctival abnormality Corrective lenses and use ENMT: Ears: no hearing impairment Neck: trachea midline Respiratory: normal respiratory effort; no respiratory distress and no labored breathing Cardiovascular: Rate/Rhythm: regular rate and regular rhythm Gastrointestinal (Abdomen): Abdomen is soft and nondistended. There is no rebound tenderness or guarding. The patient did have pain with palpation in the right upper quadrant. Musculoskeletal: No calf tenderness Skin: no rashes Neurologic: moves all extremities Psychiatric: A+Ox3, euthymic affect Results & Data ([facility]) Vital Signs (Past 12 Hours) Vital Signs Temp Pulse Pulse Resp BP BP BP 03/10/21 19:12 36.7 C 54 L 18 136/84 03/10/21 16:15 36.7 C 68 18 163/99 H 03/10/21 16:07 51 L 16 121/82 03/10/21 13:00 50 L 16 130/86 03/10/21 11:33 52 L 16 135/97 03/10/21 09:49 36.5 C 84 16 146/82 H Pulse Ox 03/10/21 19:12 95 03/10/21 16:15 97 03/10/21 16:07 98 03/10/21 13:00 99 03/10/21 11:33 99 03/10/21 09:49 97 PG Care Time/CCT Total # of Minutes Spent Total Time Spent with Patient: Total time spent is greater than 50% in coordination of care (as documented) at patient's floor/unit and/or counseling patient: Coding Level of Care Code 37422 Inpt Consult Level 5 Diagnoses Cholecystitis, acute K81.0
[2021-03-10] MEDS: PIPERACILLIN/TAZOBACTAM 3.375 GM in DEXTROSE 5% 100 ML IV SCH (21:20)
[2021-03-11] MEDS: SODIUM CHLORIDE 0.9% 1000ML 1,000 ML IV SCH ×2 (01:29→13:32)
[2021-03-11] MEDS: PIPERACILLIN/TAZOBACTAM 3.375 GM in DEXTROSE 5% 100 ML IV SCH ×3 (04:46→21:20)
[2021-03-11] MEDS: PIPERACILL/TAZOBAC CONSULT ACTIVE PRN (04:46)
[2021-03-11 06:34] LABS: Basophils # (auto) 0.02 K/uL (0-0.2); Basophils % (auto) 0.3 %; Eosinophils # (auto) 0.05 K/uL (0-0.5); Eosinophils % (auto) 0.7 %; Hematocrit (blood only) 40.9 % (42-52); Hemoglobin 13.3 g/dL (14.0-18.0); Immature Granulocytes # (auto) 0.01 K/uL (0.00-0.02); Immature Granulocytes % (auto) 0.1 %; Lymphocytes # (auto) 1.31 K/uL (1.2-3.4); Lymphocytes % (auto) 19.1 %; Mean Corpuscular Hemoglobin 31.4 pg (25-34); Mean Corpuscular Hgb Conc 32.5 g/dL (32-36); Mean Corpuscular Volume 96.5 fL (80-100); Mean Platelet Volume 11.2 fL (7.4-10.4); Monocytes % (auto) 8.7 %; Neutrophils # (auto) 4.87 K/uL (1.4-6.5); Neutrophils % (auto) 71.1 %; Platelet Count 157 K/uL (130-400); RDW Coefficient of Variation 15.7 % (11.5-14.5); RDW Standard Deviation 55.3 fL (36.4-46.3); Red Blood Count 4.24 M/uL (4.7-6.1); White Blood Count 6.86 K/uL (4.8-10.8)
[2021-03-11 07:13] LABS: Albumin Level 3.4 gm/dl (3.4-5.0); BUN Creatinine Ratio 13.4 (10-20); BUN Creatinine Ratio 13.8 (10-20); Bilirubin Direct 0.7 mg/dl (0-0.2); Bilirubin Direct 0.8 mg/dl (0-0.2); Calcium 8.9 mg/dl (8.5-10.1); Creatinine Clr Calc Pharmacy 73.7 ml/min; Est GFR (African American) 87.4 ml/min; Est GFR (Non-African American) 75.4 ml/min
[2021-03-11 07:16] LABS: Albumin Globulin Ratio 1.1 (0.9-2); Bilirubin,Total 3.2 mg/dl (0.2-1); Globulin 3.2 gm/dl (2.5-4.0); Total Protein 6.6 gm/dl (6.4-8.2)
[2021-03-11 07:20] LABS: Albumin Globulin Ratio 1.1 (0.9-2); Bilirubin,Total 3.1 mg/dl (0.2-1); Globulin 3.2 gm/dl (2.5-4.0); Total Protein 6.6 gm/dl (6.4-8.2)
--- NOTE | 2021-03-11 07:39 | Surgery Progress Note ---
Date of Service March 11, 2021 Assessment & Plan (1) Cholecystitis, acute: Plan: Patient seems to have done well overnight Says he feels somewhat better with the antibiotics Slept most of the night AM troponin pending Patient is for probable laparoscopic cholecystectomy possible cholangiogram Later this morning if okay from a medical/cardiac standpoint Admission and Anticipated Discharge Date Admission Date: March 10, 2021 Results & Data ([facility]) Vital Signs (Past 12 Hours) Vital Signs Temp Pulse Pulse Pulse Resp BP BP 03/11/21 03:35 36.4 C L 52 L 16 130/83 03/10/21 23:11 52 L 03/10/21 22:55 36.7 C 51 L 16 113/70 Pulse Ox 03/11/21 03:35 92 03/10/21 23:11 03/10/21 22:55 97 PG Care Time/CCT Total # of Minutes Spent Total Time Spent with Patient: Total time spent is greater than 50% in coordination of care (as documented) at patient's floor/unit and/or counseling patient: Coding Level of Care Code None Diagnoses Cholecystitis, acute K81.0
--- NOTE | 2021-03-11 09:08 | Anesthesiology Consultation ---
Date of Service March 11, 2021 Assessment & Plan Chart Review Chart Review: Acceptable Risk for Surgery and Patient NOT seen in Pre Admission Testing Consults Requested none ASA ASA4 Proposed Anesthesia Anesthesia Type: General Additional Comments: covid test negative History Surgery Operation Date: 03/11/21 11:25 Proposed Procedures p Laparoscopic Cholecystectomy - Rocky Nunez MD, FACS Height/Weight Height: 6 ft 2 in Weight: 97.8 kg Allergies Allergy/AdvReac Type Severity Reaction Status Date / Time No Known Allergies Allergy Verified 03/10/21 10:49 Medications Home Medications Medication Instructions Recorded Confirmed Last Taken No Known Home Medications 09/25/20 03/10/21 Unknown Active Medications Generic Name Dose Route Start Last Admin Trade Name Freq PRN Reason Stop Dose Admin Sodium Chloride 1,000 mls @ 80 mls/hr 03/10/21 16:46 03/11/21 09:07 Nss 1000ml IV 03/11/21 16:30 Infused .[id number] EDUARDO Infusion Piperacillin Sod/Tazobactam 115 mls @ 28.75 mls/hr 03/10/21 21:00 03/11/21 04:46 Sod 3.375 gm/ Dextrose IV 03/20/21 08:59 28.8 mls/hr Q8H EDUARDO Administration Protocol Miscellaneous Information 1 ea 03/10/21 16:46 03/11/21 04:46 Piperacill/Tazobac Consult Active N/A 04/09/21 16:45 1 ea UD PRN Administration Consult NPO Date Last Intake of Fluids: 03/10/21 Date Last Intake of Solids: 03/10/21 Past Medical History Medical History Cardiomegaly Cholelithiasis Elevated troponin Heart block Hyperbilirubinemia Pilonidal cyst RUQ abdominal pain ASCVD aorta;Pacemaker Exercise / Class Metabolic Activity III < 4 Walking/Shop/Light housework Past Anesthesia History No Hx of Anesthesia Complications and No Family Hx of Anesthesia Complications History of PONV No Hx of PONV and No Hx of Motion Sickness Social History Smoking Status: Never smoker Hx Alcohol Use: Yes Alcohol type: wine alcohol intake frequency: 0-2 drinks per day Hx Substance Use: No substance use type: does not use Physical Exam Vital Signs Last Vital Signs Temp 36.4 C L 03/11/21 08:20 Pulse 91 H 03/11/21 08:20 Resp 16 03/11/21 08:20 BP 166/103 H 03/11/21 08:20 Pulse Ox 96 03/11/21 08:20 Testing Laboratory Results 03/11/21 06:14 03/11/21 06:14 Urine Color Dark Yellow 03/10/21 14:45 Urine Appearance Clear (Clear) 03/10/21 14:45 Urine pH 5.0 (4.5-7.5) 03/10/21 14:45 Ur Specific [place] > 1.045 (1.000-1.030) H 03/10/21 14:45 Urine Protein 1+ (Negative) H 03/10/21 14:45 Urine Glucose (UA) Negative (Negative) 03/10/21 14:45 Urine Ketones 1+ (Negative) H 03/10/21 14:45 Urine Nitrite Negative (Negative) 03/10/21 14:45 Ur Leukocyte Esterase Negative (Negative) 03/10/21 14:45 Urine WBC (Auto) 1-5 /hpf (0-5) 03/10/21 14:45 Urine RBC (Auto) 0-4 /hpf (0-4) 03/10/21 14:45 U Hyaline Cast (Auto) 1-5 /lpf (0-5) 03/10/21 14:45 U Epithel Cells (Auto) 10-20 /lpf (0-5) H 03/10/21 14:45 Urine Bacteria (Auto) Negative (Negative) 03/10/21 14:45 Electrocardiogram Date: 03/10/21 V- paced rhythm @ 54 Chest X-Ray Date: 03/10/21 Findings: + NAD, + cardiomegaly and + atherosclerosis of thoracic aorta Left subclavian pacemaker
--- NOTE | 2021-03-11 09:08 | XCELERA ---
[id number]
[2021-03-11] MEDS ORDERED: ONDANSETRON INJ 2 MG/ML 2 ML VIAL ONE (09:37)
[2021-03-11] MEDS ORDERED: GLYCOPYRROLATE 0.2 MG/ML VIAL ONE (09:37)
[2021-03-11] MEDS ORDERED: fentaNYL citrate 100 MCG/2 ML VIAL ONE (09:37)
[2021-03-11] MEDS ORDERED: PROPOFOL IV EMULSION 10 MG/ML 20 ML VIAL IV ONE (09:37)
[2021-03-11] MEDS ORDERED: NEOSTIGMINE METHYLSULFATE 1 MG/ML 10ML VIAL ONE (09:37)
[2021-03-11] MEDS ORDERED: DEXAMETHASONE SOD INJ 4 MG/ML VIAL ONE (09:37)
[2021-03-11] MEDS ORDERED: LIDOCAINE 2% 2 ML VIAL/AMP(20MG/ML) INFIL ONE (09:37)
[2021-03-11] MEDS ORDERED: BUPIVACAINE 0.5 % 5 MG/1 ML MPF 30ML VIAL ONE (09:40)
[2021-03-11] MEDS ORDERED: ONDANSETRON INJ 2 MG/ML 2 ML VIAL IV PRN (09:48)
[2021-03-11] MEDS ORDERED: fentaNYL citrate 100 MCG/2 ML VIAL IV PRN (09:48)
[2021-03-11] MEDS ORDERED: ePHEDrine sulfate 50 MG/ML AMP IV PRN (09:48)
[2021-03-11] MEDS ORDERED: ATROPINE SULFATE 0.1 MG/ML 10ML SYR IV PRN (09:48)
[2021-03-11] MEDS ORDERED: PHENYLEPHRINE 100MCG/ML 5ML SYR ONE (10:36)
[2021-03-11] MEDS ORDERED: ROCURONIUM BROMIDE 10 MG/ML 5 ML VIAL IV ONE (10:37)
[2021-03-11] MEDS ORDERED: ACETAMINOPHEN 1000 MG/100 ML IV IV ONE (10:39)
--- NOTE | 2021-03-11 11:03 | Fluoroscopy Report ---
[place] cholangiogram OR CLINICAL HISTORY: CHOLANGIOGRAM TECHNIQUE: 4 views were obtained with the C-arm in the OR with the above procedure. Total fluoroscopy time was 11 seconds. Total skin dose was 3.00 mGy. Comparison: None available at the time of this dictation. FINDINGS/IMPRESSION: Multiple intraoperative images of cholangiogram were obtained. Please correlate with intraoperative fluoroscopy and operative report. ACT 112: Negative or not required by law. Electronically signed by: Nino Ray M.D. 03/11/2021 11:01 AM
--- NOTE | 2021-03-11 11:18 | Post Operative Brief Note ---
PG Immediate Post Op with CF Date of Surgery March 11, 2021 Pre & Post Diagnosis Operation Date: 03/11/21 11:25 Pre-Op Diagnosis: Acute Cholecystitis Post-Op Diagnosis: Acute Cholecystitis, severe acute and chronic cholecystitis Gallbladder packed full of stones Bilious ascites Possible common duct defect on cholangiogram I identified the patient and participated in the time-out.: Yes Procedure Operation Date: 03/11/21 11:25 Actual Procedures p Laparoscopic Cholecystectomy with Intraoperative Cholangiogram - Rocky Nunez MD, FACS Surgeon Rocky Nunez MD, FACS Blanket Winder Operator Donis Birmingham Estimated Blood Loss 25 Findings Consistent with Post-Op Diagnosis Severe acute and chronic cholecystitis Extremely distended gallbladder packed full of stones small and large Stones at the neck Bilious ascites Cholangiogram- possible filling defect in the common bile duct midportion Specimens Specimen Description: A. Gallbladder and Contents Drains Jean-Jo Drain (15fr round)
[2021-03-11] MEDS ORDERED: OPTIRAY 300 IV ONE (11:24)
[2021-03-11] MEDS ORDERED: FLOSEAL HEMOSTATIC MATRIX 10ML TOP ONE (11:25)
[2021-03-11] MEDS ORDERED: SURGICEL ABSORB HEMOSTAT 2IN X 14IN TOP ONE (11:26)
[2021-03-11] MEDS ORDERED: ACETAMINOPHEN 1,000 MG/100 ML VIAL IV ONE (11:45)
--- NOTE | 2021-03-11 11:48 | Operative Report (OR) ---
DATE OF OPERATION: 03/11/2021 NAME OF OPERATION: Laparoscopic cholecystectomy with intraoperative cholangiogram. PREOPERATIVE DIAGNOSIS: Acute cholecystitis. POSTOPERATIVE DIAGNOSIS: Acute cholecystitis with severe acute on chronic cholecystitis, bilious asc ites, possible common bile duct defect/stone. STAFF SURGEON: Rocky Nunez MD. PAPER TWISTER TENDER: August Birmingham PA-C. ANESTHESIA: General. DESCRIPTION OF PROCEDURE: The patient was brought in the operating room, placed on the operating tab le in supine position. Pneumatic stockings and orogastric tube were placed. His abdomen was prepped and draped in the usual fashion. Incision was made above the umbilicus, carrying dissection down, p lacing a Veress needle producing pneumoperitoneum and then placing an 11 mm port. Under visualizatio n with pneumoperitoneum, the patient was placed in reverse Trendelenburg position. Three 5 mm ports were placed, one cephalad and two laterally. The gallbladder was enormously distended. It was packed full of stones. We did aspirate some bile. The stones were actually in the neck of the gallbladder also, small stones and very large stones. Di ssection was carried out to the malick hepatis, identifying the cystic duct, it was clipped next to th e gallbladder and then partially opened. Cholangiography was performed with good flow into the duoden um. It did appear the patient had a mid common duct filling defect and possibly multiple. I was abl e to instill contrast into the upper duct after the balloon was brought down. The defect was not the balloon. At this point, the cystic duct was clipped and transected. Cystic artery identified, clipped and tra nsected and the gallbladder dissected away from the liver bed. There was severe inflammation and the gallbladder essentially peeled away from the liver, it was severely scarred from chronic inflammatio n also. It was very large. It was placed in an Endobag, almost did not fit. At this point, after ap propriate irrigation, we did place some Surgicel down in the malick hepatis for a short period and the n removed it and then we placed some FloSeal. A 15 round Jean-Jo drain was placed through the lateral 5 mm port site into the subhepatic space, secured to the skin using 3-0 nylon suture. All ports were removed. The gallbladder was removed through the umbilical site. I did have to enlar ge the site at least double to remove the enormous gallbladder. The fascia at the umbilicus closed u sing both running and interrupted 0 PDS suture. The skin was reapproximated using 5-0 Prolene suture at the umbilicus and subcuticular 4-0 Monocryl with Dermabond at the other sites. My assistant news director help ed with prepping, draping, removal of the gallbladder and closure of the wounds. Job ID: [id number]
--- NOTE | 2021-03-11 12:04 | Communication Note ---
Date of Service: March 11, 2021 I was contacted by Dr. Hewitt with regard to this patient. He had approached me yesterday as well and had suggested endoscopic ultrasound prior to cholec ystectomy. It appears that the patient does have a positive IOC we will therefore make arrangements for ERCP. Please call with any questions or concerns, leave the patient n.p.o. at midnight please I have listed the patient for tomorrow but do not have a specific time yet. A full consult from our service will be performed tomorrow morning
[2021-03-11] MEDS ORDERED: HYDROCODONE/ACETAMOPHEN 5/325MG TAB PO PRN ×2 (12:44)
[2021-03-11] MEDS ORDERED: PROMETHAZINE HCL 12.5 MG in SODIUM CHLORIDE 0.9% 50 ML IV PRN (12:44)
[2021-03-11] MEDS ORDERED: HYDROmorphone INJ 1 MG/ML SYRINGE IV PRN (12:44)
[2021-03-11] MEDS ORDERED: HYDROmorphone INJ 0.5 MG/0.5 ML SYR IV PRN (12:44)
--- NOTE | 2021-03-11 13:09 | Anesthesiology Progress Note ---
Date of Service March 11, 2021 Anesthesia Post Procedure Vital Signs Vital Signs: Temp Pulse Pulse Pulse Resp BP BP 03/11/21 12:39 50 L 18 122/80 03/11/21 12:25 97.9 F 50 L 15 125/78 03/11/21 12:15 50 L 14 121/72 03/11/21 12:05 50 L 14 118/77 03/11/21 11:55 50 L 15 110/73 03/11/21 11:45 50 L 16 110/73 03/11/21 11:37 97.7 F 51 L 14 110/73 03/11/21 10:55 53 L 03/11/21 09:18 98.1 F 53 L 18 164/94 H 03/11/21 08:20 97.5 F L 91 H 16 166/103 H 03/11/21 03:35 97.5 F L 52 L 16 03/10/21 23:11 52 L 03/10/21 22:55 98.1 F 51 L 16 113/70 03/10/21 19:12 98.1 F 54 L 18 136/84 03/10/21 16:15 98.1 F 68 18 03/10/21 16:07 51 L 16 121/82 BP Pulse Ox 03/11/21 12:39 94 03/11/21 12:25 94 03/11/21 12:15 93 03/11/21 12:05 93 03/11/21 11:55 96 03/11/21 11:45 93 03/11/21 11:37 93 03/11/21 10:55 03/11/21 09:18 96 03/11/21 08:20 96 03/11/21 03:35 130/83 92 03/10/21 23:11 03/10/21 22:55 97 03/10/21 19:12 95 03/10/21 16:15 163/99 H 97 03/10/21 16:07 98 Pain Intensity Right Upper Abdomen: Pain Intensity: 4 Transfer of Care Handoff Completed per policy Notes Mental Status: alert / awake / arousable and participated in evaluation Patient Amnestic to Procedure: Yes Nausea / Vomiting: adequately controlled Pain: adequately controlled Airway Patency, RR, SpO2: stable & adequate BP & HR: stable & adequate Hydration State: stable & adequate Anesthetic Complications: no major complications apparent and Pt Satisfied with anesthetic care
--- NOTE | 2021-03-11 16:18 | Surgery Progress Note ---
Date of Service March 11, 2021 Assessment & Plan (1) History of laparoscopic cholecystectomy: Plan: Patient status post laparoscopic cholecystectomy with cholangiogram Patient had relatively significant bilious ascites but no exudate and no evidence of gallbladder necrosis Specific etiology of his ascites is in question Gallbladder was enormous packed full of stones Cholangiogram showed what appeared to be filling defects in the common bile duct For ERCP tomorrow Continue IV antibiotics Admission and Anticipated Discharge Date Admission Date: March 11, 2021 Results & Data ([facility]) Vital Signs (Past 12 Hours) Vital Signs Temp Pulse Pulse Pulse Resp BP Pulse Ox 03/11/21 16:00 55 L 126/79 03/11/21 15:00 50 L 118/77 03/11/21 14:30 36.6 C 50 L 124/74 03/11/21 14:00 64 18 125/84 94 03/11/21 13:45 36.7 C 64 18 125/84 94 03/11/21 13:20 36.7 C 59 L 20 128/78 94 03/11/21 13:05 36.6 C 50 L 12 104/60 95 03/11/21 12:55 56 L 18 96/60 L 94 03/11/21 12:45 50 L 14 106/55 L 94 03/11/21 12:35 50 L 18 122/80 94 03/11/21 12:25 36.6 C 50 L 15 125/78 94 03/11/21 12:15 50 L 14 121/72 93 03/11/21 12:05 50 L 14 118/77 93 03/11/21 11:55 50 L 15 110/73 96 03/11/21 11:45 50 L 16 110/73 93 03/11/21 11:37 36.5 C 51 L 14 110/73 93 03/11/21 10:55 53 L 03/11/21 09:18 36.7 C 53 L 18 164/94 H 96 03/11/21 08:20 36.4 C L 91 H 16 166/103 H 96 PG Care Time/CCT Total # of Minutes Spent Total Time Spent with Patient: Total time spent is greater than 50% in coordination of care (as documented) at patient's floor/unit and/or counseling patient: Coding Level of Care Code None Diagnoses History of laparoscopic cholecystectomy Z90.49
--- NOTE | 2021-03-11 16:27 | Hospitalist Progress Note ---
Date of Service March 11, 2021 Assessment & Plan (1) Cholelithiasis: Plan: Patient has symptomatic cholelithiasis with elevated bilirubin and concern for cholecystitis. Taken to the operating room on for laparoscopic cholecystectomy. Significant inflammatory changes seen intraoperatively. Possible intraductal filling defect was seen in the common bile duct during intraoperative cholangiography and the patient is slated to have an ERCP on 03/12/2021. Postoperatively the patient is doing well pain is controlled he is having significant drainage in his JANES drain and around it in the right quadrant however it is noted the patient did have significant irrigation during the procedure. Incidentally noted bilateral renal cysts are seen these are thin-walled. (2) Elevated troponin: Plan: Patient's troponins remain elevated x3 did not peak or trend there is no acute changes on EKG echocardiogram was performed without regional wall motion abnormalities and a preserved ejection fraction. (3) New onset atrial flutter: Plan: Patient is of a permanent pacemaker his background rhythm seems to be atrial flutter. Anticoagulation will be considered once postoperative hemostasis is achieved. Patient does have rate control (4) DVT prophylaxis: Plan: DVT prevention is SCDs until postoperative hemostasis is achieved Admission and Anticipated Discharge Date Admission Date: March 11, 2021 Subjective Patient was seen postoperatively he was doing well. JANES drain in his right upper quadrant was draining a serosanguineous fluid. He had no chest pain pressure shortness of breath did have a bit of a scratchy throat feels slightly drowsy Review of Systems Review of Systems: Mild distress and fatigue no headache, no visual changes no speech or swallowing issues no chest pain, pressure or palpitations no shortness of breath, cough or wheezes Mild abdominal pain, mild nausea withoutvomiting, diarrhea or constipation no dysuria, hematuria or frequency no focal joint pain or swelling no back pain, CVA tenderness or radicular pain no bruising, bleeding or rashes no focal signs of weakness or numbness or altered sensation no complaints of anxiety or depression.. Physical Exam Physical Exam: The patient appeared well nourished and normally developed. Vital signs as documented. Head exam is normocephalic atraumatic Neck is without JVD, thyromegaly, or carotid bruits. Lungs are clear to auscultation, no focal loss of breath sounds Cardiac exam, Rhythm is regular.. No murmurs, rubs or gallops. Abdominal exam reveals normal bowel sounds, soft mild tenderness, janes drian and some leaking of serosanguineous fluid Extremities are nonedematous and both pedal pulses are present Neurologic exam is alert and oriented, no focal loss of strength or sensation Skin is without bruises or rashes Psychologically is without concerns for anxiety or depression.. Results & Data Results & Data ([facility]) Vital Signs (Past 12 Hours) Vital Signs Temp Pulse Pulse Pulse Resp BP Pulse Ox 03/11/21 16:00 50 L 55 L 126/79 03/11/21 15:00 50 L 118/77 03/11/21 14:30 97.9 F 50 L 124/74 03/11/21 14:00 64 18 125/84 94 03/11/21 13:45 98.1 F 64 18 125/84 94 03/11/21 13:20 98.1 F 59 L 20 128/78 94 03/11/21 13:05 97.9 F 50 L 12 104/60 95 03/11/21 12:55 56 L 18 96/60 L 94 03/11/21 12:45 50 L 14 106/55 L 94 03/11/21 12:35 50 L 18 122/80 94 03/11/21 12:25 97.9 F 50 L 15 125/78 94 03/11/21 12:15 50 L 14 121/72 93 03/11/21 12:05 50 L 14 118/77 93 03/11/21 11:55 50 L 15 110/73 96 03/11/21 11:45 50 L 16 110/73 93 03/11/21 11:37 97.7 F 51 L 14 110/73 93 03/11/21 10:55 53 L 03/11/21 09:18 98.1 F 53 L 18 164/94 H 96 03/11/21 08:20 97.5 F L 91 H 16 166/103 H 96 PG Care Time/CCT Total # of Minutes Spent Total Time Spent with Patient: Total time spent is greater than 50% in coordination of care (as documented) at patient's floor/unit and/or counseling patient: Coding Level of Care Code 43293 Subseq Hosp Care Lvl 2 Diagnoses Elevated troponin R77.8 New onset atrial flutter I48.92 Cholelithiasis K80.20 Biliary obstruction: without biliary obstruction Cholecystitis presence: without cholecystitis Cholelithiasis location: gallbladder DVT prophylaxis Z29.9 (1) Cholelithiasis Biliary obstruction: without biliary obstruction Cholecystitis presence: without cholecystitis Cholelithiasis location: gallbladder Qualified Code(s): K80.20 - Calculus of gallbladder without cholecystitis without obstruction
--- NOTE | 2021-03-11 16:48 | Anesthesiology Consultation ---
Date of Service March 11, 2021 Assessment & Plan Chart Review Chart Review: Acceptable Risk for Surgery and Patient NOT seen in Pre Admission Testing Consults Requested none History Surgery Operation Date: 03/11/21 11:25 Proposed Procedures p Laparoscopic Cholecystectomy - Rocky Nunez MD, FACS Operation Date: 03/12/21 10:25 Proposed Procedures p ERCP - Justin Finley DO Height/Weight Height: 6 ft 2 in Weight: 97.8 kg Allergies Allergy/AdvReac Type Severity Reaction Status Date / Time No Known Allergies Allergy Verified 03/10/21 10:49 Medications Home Medications Medication Instructions Recorded Confirmed Last Taken No Known Home Medications 09/25/20 03/10/21 Unknown Active Medications Generic Name Dose Route Start Last Admin Trade Name Freq PRN Reason Stop Dose Admin Piperacillin Sod/Tazobactam 115 mls @ 28.75 mls/hr 03/10/21 21:00 03/11/21 14:07 Sod 3.375 gm/ Dextrose IV 03/20/21 08:59 28.8 mls/hr Q8H EDUARDO Administration Protocol Sodium Chloride 1,000 mls @ 50 mls/hr 03/11/21 12:44 03/11/21 13:32 Nss 1000ml IV 04/10/21 12:43 50 mls/hr .Q20H EDUARDO Administration Miscellaneous Information 1 ea 03/10/21 16:46 03/11/21 04:46 Piperacill/Tazobac Consult Active N/A 04/09/21 16:45 1 ea UD PRN Administration Consult NPO Date Last Intake of Fluids: 03/10/21 Time Last Intake of Fluids: 20:00 Date Last Intake of Solids: 03/10/21 Time Last Intake of Solids: 20:00 Past Medical History Medical History Cholelithiasis Elevated troponin Heart block Hyperbilirubinemia Pilonidal cyst RUQ abdominal pain Social History Smoking Status: Never smoker Hx Alcohol Use: Yes Alcohol type: wine alcohol intake frequency: 0-2 drinks per day Hx Substance Use: No substance use type: does not use Physical Exam Vital Signs Last Vital Signs Temp 36.6 C 03/11/21 14:30 Pulse 55 L 03/11/21 16:00 Resp 18 03/11/21 14:00 BP 126/79 03/11/21 16:00 Pulse Ox 94 03/11/21 14:00 Testing Laboratory Results 03/11/21 06:14 03/11/21 06:14 Urine Color Dark Yellow 03/10/21 14:45 Urine Appearance Clear (Clear) 03/10/21 14:45 Urine pH 5.0 (4.5-7.5) 03/10/21 14:45 Ur Specific [place] > 1.045 (1.000-1.030) H 03/10/21 14:45 Urine Protein 1+ (Negative) H 03/10/21 14:45 Urine Glucose (UA) Negative (Negative) 03/10/21 14:45 Urine Ketones 1+ (Negative) H 03/10/21 14:45 Urine Nitrite Negative (Negative) 03/10/21 14:45 Ur Leukocyte Esterase Negative (Negative) 03/10/21 14:45 Urine WBC (Auto) 1-5 /hpf (0-5) 03/10/21 14:45 Urine RBC (Auto) 0-4 /hpf (0-4) 03/10/21 14:45 U Hyaline Cast (Auto) 1-5 /lpf (0-5) 03/10/21 14:45 U Epithel Cells (Auto) 10-20 /lpf (0-5) H 03/10/21 14:45 Urine Bacteria (Auto) Negative (Negative) 03/10/21 14:45 Electrocardiogram Date: 03/10/21 V- paced rhythm @ 54 Chest X-Ray Date: 03/10/21 Findings: + NAD, + cardiomegaly and + atherosclerosis of thoracic aorta Left subclavian pacemaker
[2021-03-11] MEDS: DOCUSATE SODIUM/SENNA 50/8.6MG TAB PO SCH (21:19)
[2021-03-11] MEDS: ACETAMINOPHEN 325 MG TAB PO PRN (21:19)
[2021-03-12] MEDS: ACETAMINOPHEN 325 MG TAB PO PRN (04:16)
[2021-03-12] MEDS: PIPERACILLIN/TAZOBACTAM 3.375 GM in DEXTROSE 5% 100 ML IV SCH ×3 (05:29→21:22)
[2021-03-12] MEDS: PIPERACILL/TAZOBAC CONSULT ACTIVE PRN (05:29)
[2021-03-12 06:06] LABS: Basophils # (auto) 0.02 K/uL (0-0.2); Basophils % (auto) 0.2 %; Eosinophils # (auto) 0.01 K/uL (0-0.5); Eosinophils % (auto) 0.1 %; Hematocrit (blood only) 42.6 % (42-52); Immature Granulocytes # (auto) 0.02 K/uL (0.00-0.02); Immature Granulocytes % (auto) 0.2 %; Lymphocytes % (auto) 10.3 %; Mean Corpuscular Hemoglobin 31.6 pg (25-34); Mean Corpuscular Hgb Conc 32.9 g/dL (32-36); Mean Corpuscular Volume 96.2 fL (80-100); Mean Platelet Volume 11.3 fL (7.4-10.4); Monocytes # (auto) 0.83 K/uL (0.11-0.59); Monocytes % (auto) 8.5 %; Neutrophils # (auto) 7.83 K/uL (1.4-6.5); Neutrophils % (auto) 80.7 %; Platelet Count 169 K/uL (130-400); RDW Coefficient of Variation 15.7 % (11.5-14.5); Red Blood Count 4.43 M/uL (4.7-6.1); White Blood Count 9.71 K/uL (4.8-10.8)
[2021-03-12 06:48] LABS: Albumin Level 3.1 gm/dl (3.4-5.0); BUN Creatinine Ratio 12.2 (10-20); Bilirubin Direct 0.8 mg/dl (0-0.2); Calcium 8.9 mg/dl (8.5-10.1); Est GFR (African American) 86.3 ml/min; Est GFR (Non-African American) 74.5 ml/min; Potassium 4.3 mmol/L (3.5-5.1)
[2021-03-12 06:50] LABS: Bilirubin,Total 2.9 mg/dl (0.2-1); Globulin 3.2 gm/dl (2.5-4.0); Phosphorus 3.2 mg/dl (2.5-4.9); Total Protein 6.3 gm/dl (6.4-8.2)
--- NOTE | 2021-03-12 07:48 | Surgery Progress Note ---
Date of Service March 12, 2021 Assessment & Plan (1) History of laparoscopic cholecystectomy: Plan: Patient says he feels better without nausea Does have some abdominal pain which is not surprising with the size of the gallbladder and dissection Interestingly he does have significant serous MACIEL output which is more related to ascites -specific etiology of which is unknown We will leave his drain for now For ERCP today May consider removing his drain prior to discharge Admission and Anticipated Discharge Date Admission Date: March 11, 2021 Results & Data ([facility]) Vital Signs (Past 12 Hours) Vital Signs Temp Pulse Pulse Resp BP Pulse Ox 03/12/21 07:30 36.7 C 50 L 17 135/81 93 03/12/21 03:31 37.0 C 56 L 18 117/74 94 03/12/21 00:03 36.5 C 59 L 16 112/68 92 03/11/21 23:16 50 L PG Care Time/CCT Total # of Minutes Spent Total Time Spent with Patient: Total time spent is greater than 50% in coordination of care (as documented) at patient's floor/unit and/or counseling patient: Coding Level of Care Code None Diagnoses History of laparoscopic cholecystectomy Z90.49
--- NOTE | 2021-03-12 08:09 | Gastrointestinal Consultation ---
Date of Consultation March 12, 2021 Assessment & Plan (1) Cholelithiasis: (2) Cholecystitis, acute: (3) Abnormal cholangiogram: This is a 76 y/o male who is s/p laparoscopic cholecystectomy for acute cholecystitis on 03/11, and had intraoperative cholangiogram concerning for CBD stone. Overnight has done well; abd soft, nondistended, he's afebrile; resting comfortably in bed. Labs reviewed and are stable. He is HD stable. - Will plan for ERCP today to evaluate for CBD stone/sludge - Please keep NPO - Continue IVF - Analgesia PRN - Antiemetics PRN - Further recommendations to follow procedure Thank you for allowing us to participate in the care of this patient. Please call with any acute changes, questions or concerns. Please see addendum below with additional recommendation from my supervising physician. Supervising Physician Co-Signing Physician Notes I saw and evaluated the patient. We were asked to evaluate this patient after he presented with abdominal pain. The patient underwent cholecystectomy with intraoperative cholangiogram which showed evidence of a stone within the common bile duct. ERCP has been requested for further treatment. Physical examination Scleral icterus noted Mild right upper quadrant tenderness noted, appropriate with recent cholecystectomy Impression patient with a positive intraoperative cholangiogram and elevated bilirubin. We are planning for ERCP today. We have discussed the risks and benefits of ERCP to include bleeding, infection, perforation, pain, pancreatitis and need for follow-up studies. History of Present Illness Reason for Consultation: Possible common duct defect/stone Requesting Physician: Dr. 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 He underwent laparoscopic cholecystectomy 03/11/21; gallbladder was large and full of stones, significant inflammatory changes seen intraoperatively. Intraoperative cholangiogram showing what appeared to be filling defects in the common bile duct and we are asked to see him for possible CBD stone. Overnight he has done well. He describes incisional pain but no other abd discomfort. He has had a lot of serosanguineous drainage in his MACIEL drain; this is seems to be slowing down. No BM but he is passing flatus. Denies fever, chills, nausea, vomiting, hematemesis, CP, SOB, leg edema. He has been up out of bed to BR and to chair and back. Allergies Allergy/AdvReac Type Severity Reaction Status Date / Time No Known Allergies Allergy Verified 03/10/21 10:49 Home Medications Medication Instructions Recorded Confirmed Type No Known Home Medications 09/25/20 03/10/21 History Patient History Medical History (Updated 03/12/21 @ 08:42 by Gisell Grace PA-C) Cholelithiasis Elevated troponin Heart block Hyperbilirubinemia Pilonidal cyst RUQ abdominal pain Surgical History (Updated 03/12/21 @ 08:48 by Mary Kay Perez RN) Hx laparoscopic cholecystectomy (03/11/21) Laparoscopic cholecystectomy with intraoperative cholangiogram Dr. Nunez 03-11-2021 Social History Smoking Status: Never smoker Hx Alcohol Use: Yes Alcohol type: wine Hx Substance Use: No Preferred Language: Spanish Communication Ability: Effective Recreational Therapy Aide Required: No Beliefs That Will Affect Care: None Current Living Situation: Spouse Feels Safe at Home: Yes Assistive Devices: Glasses Review of Systems Review of Systems: All systems reviewed & are unremarkable except as noted in HPI & below Physical Exam Constitutional: WD/WN, vitals as above Eyes: No icterus Respiratory: Normal respiratory effort. A few bibasilar crackles, no rhonchi, wheezes Cardiovascular: Rate/Rhythm: regular rhythm and + bradycardic Heart Sounds: no murmur Extremities: no edema Gastrointestinal (Abdomen): Incisional dressings in place, SS drainage in MACIEL drain, abd soft, nondistended, no midline tenderness, bowel sounds x 4 quadrants Skin: no rashes, warm and dry Psychiatric: A+Ox3, euthymic affect Results & Data ([facility]) Vital Signs (Past 12 Hours) Vital Signs Temp Pulse Pulse Resp BP Pulse Ox 03/12/21 07:30 36.7 C 50 L 17 135/81 93 03/12/21 03:31 37.0 C 56 L 18 117/74 94 03/12/21 00:03 36.5 C 59 L 16 112/68 92 03/11/21 23:16 50 L Laboratory Results 03/12/21 03/12/21 03/11/21 Range/Units 05:44 05:44 06:14 WBC 9.71 (4.8-10.8) K/uL RBC 4.43 L (4.7-6.1) M/uL Hgb 14.0 (14.0-18.0) g/dL Hct 42.6 (42-52) % MCV 96.2 (80-100) fL MCH 31.6 (25-34) pg MCHC 32.9 (32-36) g/dL RDW Std Deviation 55.0 H (36.4-46.3) fL RDW Coeff of Mariel 15.7 H (11.5-14.5) % Plt Count 169 (130-400) K/uL MPV 11.3 H (7.4-10.4) fL Immature Gran % (Auto) 0.2 % Neut % (Auto) 80.7 % Lymph % (Auto) 10.3 % Sawyer % (Auto) 8.5 % Eos % (Auto) 0.1 % Baso % (Auto) 0.2 % Neut # (Auto) 7.83 H (1.4-6.5) K/uL Lymph # (Auto) 1.00 L (1.2-3.4) K/uL Sawyer # (Auto) 0.83 H (0.11-0.59) K/uL Eos # (Auto) 0.01 (0-0.5) K/uL Baso # (Auto) 0.02 (0-0.2) K/uL Immature Gran # (Auto) 0.02 (0.00-0.02) K/uL Sodium 140 (136-145) mmol/L Potassium 4.3 (3.5-5.1) mmol/L Chloride 109 H (98-107) mmol/L Carbon Dioxide 24 (21-32) mmol/L Anion Gap 7.0 (3-11) BUN 12 (7-18) mg/dl Creatinine 0.97 (0.6-1.4) mg/dl Est Cr Clr Drug Dosing 73.0 ml/min Est GFR ( Amer) 86.3 ml/min Est GFR (Non-Af Amer) 74.5 ml/min BUN/Creatinine Ratio 12.2 (10-20) Glucose 115 H (70-99) mg/dl Calcium 8.9 (8.5-10.1) mg/dl Phosphorus 3.2 (2.5-4.9) mg/dl Total Bilirubin 2.9 H (0.2-1) mg/dl Direct Bilirubin 0.8 H (0-0.2) mg/dl AST 38 H (15-37) U/L ALT 41 (12-78) Alkaline Phosphatase 50 (45-117) U/L Troponin I 0.128 H* (0-0.045) ng/ml Total Protein 6.3 L (6.4-8.2) gm/dl Albumin 3.1 L (3.4-5.0) gm/dl Globulin 3.2 (2.5-4.0) gm/dl Albumin/Globulin Ratio 1.0 (0.9-2) Lipase 109 (73-393) U/L 03/11/21 Range/Units 06:14 WBC (4.8-10.8) K/uL RBC (4.7-6.1) M/uL Hgb (14.0-18.0) g/dL Hct (42-52) % MCV (80-100) fL MCH (25-34) pg MCHC (32-36) g/dL RDW Std Deviation (36.4-46.3) fL RDW Coeff of Mariel (11.5-14.5) % Plt Count (130-400) K/uL MPV (7.4-10.4) fL Immature Gran % (Auto) % Neut % (Auto) % Lymph % (Auto) % Sawyer % (Auto) % Eos % (Auto) % Baso % (Auto) % Neut # (Auto) (1.4-6.5) K/uL Lymph # (Auto) (1.2-3.4) K/uL Sawyer # (Auto) (0.11-0.59) K/uL Eos # (Auto) (0-0.5) K/uL Baso # (Auto) (0-0.2) K/uL Immature Gran # (Auto) (0.00-0.02) K/uL Sodium (136-145) mmol/L Potassium 4.0 (3.5-5.1) mmol/L Chloride (98-107) mmol/L Carbon Dioxide (21-32) mmol/L Anion Gap (3-11) BUN (7-18) mg/dl Creatinine (0.6-1.4) mg/dl Est Cr Clr Drug Dosing ml/min Est GFR ( Amer) ml/min Est GFR (Non-Af Amer) ml/min BUN/Creatinine Ratio (10-20) Glucose (70-99) mg/dl Calcium (8.5-10.1) mg/dl Phosphorus (2.5-4.9) mg/dl Total Bilirubin (0.2-1) mg/dl Direct Bilirubin (0-0.2) mg/dl AST (15-37) U/L ALT (12-78) Alkaline Phosphatase (45-117) U/L Troponin I (0-0.045) ng/ml Total Protein (6.4-8.2) gm/dl Albumin (3.4-5.0) gm/dl Globulin (2.5-4.0) gm/dl Albumin/Globulin Ratio (0.9-2) Lipase (73-393) U/L Diagnostic Findings CTAP: HISTORY: Subacute upper abdominal pain R>L upper abd pain x 2 weeks TECHNIQUE: Multiaxial CT images of the abdomen and pelvis were performed following the IV administration of 91 cc of Optiray, A dose lowering technique was utilized adhering to the principles of ALARA. COMPARISON STUDY: Abdominal ultrasound 03/09/2021 FINDINGS: Cardiac megaly with partially imaged pacer leads. Small right greater than left pleural effusions with mild dependent subsegmental bibasilar atelectasis. Pulmonary edema. 5 mm solid nodule the basal left lower lobe, image 38. 4 mm solid nodule of the lateral segment right middle lobe. There is no pneumatosis or pneumoperitoneum. The spleen, pancreas and adrenal glands are unremarkable. Gallbladder distention with cholelithiasis and mild wall thickening. Hepatic steatosis. Mixing artifact is noted within the portal vein. Cysts of the bilateral kidneys measure up to 3.5 cm on the right. 7.4 x 7.0 x 6.3 cm exophytic cyst of the superior pole left kidney with a calcified septation. There is no hydronephrosis. Prostamegaly. Urinary bladder wall thickening with partial distention. Atherosclerosis of the aorta without aneurysm. No adenopathy. No bowel obstruction or bowel wall thickening. Colonic diverticulosis without acute diverticulitis. Normal appendix. Small volume of abdominal pelvic ascites with mild generalized body wall edema. 1.6 cm subcortical cyst of the right pubic body. Moderate bilateral hip osteoarthritis. Bilateral hip joint effusions are likely degenerative, right greater than left with associated periarticular calcifications. IMPRESSION: 1. Cardiomegaly with fluid overload manifested by pulmonary edema, small layering pleural effusions, small volume of abdominal pelvic ascites with body wall edema. 2. Cholelithiasis with gallbladder distention and mild wall thickening which may be secondary to the aforementioned fluid overload versus acute cholecystitis. 3. Mildly complex 7.4 cm cyst of the left kidney. 4. Prostamegaly with chronic bladder outlet obstruction. 5. Colonic diverticulosis. 6. Additional findings as above. FINDINGS: An AP, portable, upright chest radiograph is compared to study dated 09/15/2018. A 2-lead cardiac pacemaker is unchanged in position and partially obscures the left upper chest. The heart is enlarged noting atherosclerotic calcification of the thoracic aorta. The pulmonary vasculature is noncongested. Chronic interstitial thickening is similar to previous. Scarring/atelectasis is noted at the lung bases. No airspace consolidation or large pleural effusion is identified. No pneumothorax is seen. The skeletal structures are osteopenic. The bony thorax is grossly intact. IMPRESSION: 1. Cardiomegaly and cardiac pacemaker with no radiographic evidence of congestive failure. 2. No airspace consolidation or large pleural effusion is identified. (1) Cholelithiasis Biliary obstruction: without biliary obstruction Cholecystitis presence: without cholecystitis Cholelithiasis location: gallbladder Qualified Code(s): K80.20 - Calculus of gallbladder without cholecystitis without obstruction
[2021-03-12] MEDS: SODIUM CHLORIDE 0.9% 1000ML 1,000 ML IV SCH (08:37)
[2021-03-12] MEDS: DOCUSATE SODIUM/SENNA 50/8.6MG TAB PO SCH ×2 (08:55→21:26)
[2021-03-12] MEDS ORDERED: fentaNYL citrate 100 MCG/2 ML VIAL ONE (09:52)
[2021-03-12] MEDS ORDERED: PROPOFOL IV EMULSION 10 MG/ML 20 ML VIAL IV ONE (09:52)
[2021-03-12] MEDS ORDERED: LIDOCAINE 2% 2 ML VIAL/AMP(20MG/ML) INFIL ONE ×2 (09:52→11:31)
[2021-03-12] MEDS ORDERED: DEXAMETHASONE SOD INJ 4 MG/ML VIAL ONE (09:52)
[2021-03-12] MEDS ORDERED: ONDANSETRON INJ 2 MG/ML 2 ML VIAL ONE (09:52)
[2021-03-12] MEDS ORDERED: fentaNYL citrate 100 MCG/2 ML VIAL IV PRN ×2 (10:04→10:31)
[2021-03-12] MEDS ORDERED: ATROPINE SULFATE 0.1 MG/ML 10ML SYR IV PRN ×2 (10:04→10:31)
[2021-03-12] MEDS ORDERED: ePHEDrine sulfate 50 MG/ML AMP IV PRN (10:04)
[2021-03-12] MEDS ORDERED: ONDANSETRON INJ 2 MG/ML 2 ML VIAL IV PRN ×2 (10:04→10:31)
[2021-03-12] MEDS ORDERED: LABETALOL HCL IV 5 MG/ML 20ML IV PRN (10:31)
[2021-03-12] MEDS ORDERED: PROMETHAZINE HCL 6.25 MG in SODIUM CHLORIDE 0.9% 50 ML IV PRN (10:31)
[2021-03-12] MEDS ORDERED: INDOMETHACIN 50 MG SUPP PR ONE (10:41)
[2021-03-12] MEDS ORDERED: ROCURONIUM BROMIDE 10 MG/ML 5 ML VIAL IV ONE (11:02)
[2021-03-12] MEDS ORDERED: SUCCINYLCHOLINE CHLORIDE 20 MG/ML 10 ML VIAL IV ONE (11:02)
[2021-03-12] MEDS ORDERED: ePHEDrine sulfate 50 MG/ML SYR ONE (11:24)
--- NOTE | 2021-03-12 11:34 | Post Operative Brief Note ---
Immediate Post Op Note v1 Date of Surgery March 12, 2021 Pre & Post Diagnosis Operation Date: 03/12/21 10:25 Pre-Op Diagnosis: Choledocholithiasis I identified the patient and participated in the time-out.: Yes Procedure Operation Date: 03/12/21 10:25 Actual Procedures p Endoscopic Retrograde Cholangiopancreato with pancreatic stent placement - Justin Finley DO Surgeon Justin Finley DO Show Design Supervisor Donis [place] Estimated Blood Loss 25 Findings Consistent with Post-Op Diagnosis Drains Jean-Jo Drain (15fr round)
--- NOTE | 2021-03-12 11:53 | GI REPORT ---
Patient Name: Jerad Bashir Procedure Date: 03/12/2021 10:22 AM Date of : 1945 Admit Type: Inpatient Age: 76 Gender: Male Attending MD: Justin Finley DO Procedure: ERCP Providers: Justin Finley DO Referring MD: Johny Rice DO, Thomas E. Covaleski Indications: Filling defect on intraoperative cholangiogram Medicines: General Anesthesia Complications: No immediate complications. Estimated blood loss: Minimal. Estimated Blood Loss: Estimated blood loss was minimal. Procedure: Pre-Anesthesia Assessment: - Prior to the procedure, a History and Physical was performed, and patient medications, allergies and sensitivities were reviewed. The patient's tolerance of previous anesthesia was reviewed. - The risks and benefits of the procedure and the sedation options and risks were discussed with the patient. All questions were answered and informed consent was obtained. - Patient identification and proposed procedure were verified prior to the procedure by the physician, the nurse and the dispatch specialist. The procedure was verified in the procedure room. - Pre-procedure physical examination revealed no contraindications to sedation. - ASA Grade Assessment: III - A patient with severe systemic disease. - After reviewing the risks and benefits, the patient was deemed in satisfactory condition to undergo the procedure. - The anesthesia plan was to use monitored anesthesia care (MAC). - Immediately prior to administration of medications, the patient was re-assessed for adequacy to receive sedatives. - The heart rate, respiratory rate, oxygen saturations, blood pressure, adequacy of pulmonary ventilation, and response to care were monitored throughout the procedure. - The physical status of the patient was re-assessed after the procedure. After obtaining informed consent, the scope was passed under direct vision. Throughout the procedure, the patient's blood pressure, pulse, and oxygen saturations were monitored continuously. The Duodenoscope was introduced through the mouth, and advanced to the duodenum and used to inject contrast into the bile duct. The patient tolerated the procedure well. The ERCP was somewhat difficult due to challenging cannulation. Successful completion of the procedure was aided by performing the maneuvers documented (below) in this report. Findings: A vice president sales and marketing film of the abdomen was obtained. Surgical clips, consistent with a previous cholecystectomy, were seen in the area of the right upper quadrant of the abdomen. The esophagus was successfully intubated under direct vision without detailed examination of the pharynx, larynx, and associated structures, and upper GI tract. The upper GI tract was grossly normal. The major papilla was edematous. The ventral pancreatic duct was inadvertently cannulated with the short-nosed traction sphincterotome and 0.035 in Acrobat 2 guidewire without any complications, this wire was left in place to aid in biliary cannulation and later place a prophylactic pancreatic stent. The bile duct was deeply cannulated with the short-nosed traction sphincterotome and 0.025 in Angled Acrobat 2 guidewire (this was later changed to a 0.035 in guidewire). Contrast was injected. I personally interpreted the bile duct images. Contrast extended to the hepatic ducts. A cholecystectomy had been performed. The lower third of the main bile duct and middle third of the main bile duct contained filling defect(s) thought to be a stone. The biliary orifice was also stenotic. This appeared benign. Biliary sphincterotomy was made with a Fusion OMNI sphincterotome using ERBE electrocautery. The sphincterotomy oozed blood. To discover objects, the biliary tree was swept with a 12 and 15 mm balloon starting at the bifurcation several times. Three small calcified appearinge stones were removed. No stones remained on a final occlusion cholangiogram and the biliary tree appeared to be draining well. One 5 Fr by 7 cm pancreatic stent with a full external pigtail and no internal flaps was placed 7 cm into the ventral pancreatic duct. Clear fluid flowed through the stent. The stent was in good position. The endoscope was withdrawn from the patient. The endoscope was withdrawn from the patient. Impression: - The major papilla appeared edematous. - Biliary papillary stenosis, benign. - A filling defect consistent with a stone was seen on the cholangiogram. - The patient has had a cholecystectomy without evidence of a biilary leak. - Choledocholithiasis was found. Complete removal was accomplished by biliary sphincterotomy and balloon extraction. - One prophylactic pancreatic stent was placed into the ventral pancreatic duct. Recommendation: - Avoid aspirin and nonsteroidal anti-inflammatory medicines for 5 days. - Clear liquid diet today. - Observe patient's clinical course. - Perform a flat plate abdominal x-ray in 4 weeks to ensure passage of the pancreatic stent. Justin Finley D.O. Justin Finley, DO 03/12/2021 11:53:00 AM This report has been signed electronically. Note Initiated On: 03/12/2021 10:22 AM Number of Addenda: 0 I attest to the content of the Intraoperative Record and orders documented therein, exceptions below {[id number]}
--- NOTE | 2021-03-12 12:00 | Anesthesiology Progress Note ---
Date of Service March 12, 2021 Anesthesia Post Procedure Vital Signs Vital Signs: Temp Pulse Pulse Pulse Resp BP Pulse Ox 03/12/21 11:50 50 L 20 122/76 93 03/12/21 11:40 50 L 18 126/81 98 03/12/21 11:30 51 L 20 126/77 98 03/12/21 11:20 51 L 20 131/79 98 03/12/21 11:17 97.0 F L 53 L 18 132/83 96 03/12/21 09:56 57 L 18 149/82 H 92 03/12/21 08:00 50 L 03/12/21 07:30 98.1 F 50 L 17 135/81 93 03/12/21 03:31 98.6 F 56 L 18 117/74 94 03/12/21 00:03 97.7 F 59 L 16 112/68 92 03/11/21 23:16 50 L 03/11/21 19:33 97.5 F L 47 L 18 132/83 92 03/11/21 16:00 50 L 55 L 126/79 03/11/21 15:00 50 L 118/77 03/11/21 14:30 97.9 F 50 L 124/74 03/11/21 14:00 64 18 125/84 94 03/11/21 13:45 98.1 F 64 18 125/84 94 03/11/21 13:20 98.1 F 59 L 20 128/78 94 03/11/21 13:05 97.9 F 50 L 12 104/60 95 03/11/21 12:55 56 L 18 96/60 L 94 03/11/21 12:45 50 L 14 106/55 L 94 03/11/21 12:35 50 L 18 122/80 94 03/11/21 12:25 97.9 F 50 L 15 125/78 94 03/11/21 12:15 50 L 14 121/72 93 03/11/21 12:05 50 L 14 118/77 93 Pain Intensity Right Upper Abdomen: Pain Intensity: 4 Transfer of Care Handoff Completed per policy Notes Mental Status: alert / awake / arousable and participated in evaluation Patient Amnestic to Procedure: Yes Nausea / Vomiting: adequately controlled Pain: adequately controlled Airway Patency, RR, SpO2: stable & adequate BP & HR: stable & adequate Hydration State: stable & adequate Anesthetic Complications: no major complications apparent and Pt Satisfied with anesthetic care
--- NOTE | 2021-03-12 12:03 | Fluoroscopy Report ---
[place] ERCP biliary ductal CLINICAL HISTORY: Status post intraoperative cholangiogram. Right upper quadrant pain. COMPARISON STUDY: Intraoperative cholangiogram 03/11/2021. Abdomen and pelvis CT 03/10/2021. FLUOROSCOPY TIME: 1 minute and 2 seconds. FINDINGS: 8 fluoroscopic spot images the right upper quadrant were submitted for review. Patient stat us post cholecystectomy. There is a surgical drain seen within the right upper quadrant at the colost trish site. The ampulla was cannulated and contrast was injected into the common bile duct. Small filli ng defects within the common bile duct may represent stones or gas bubbles. A balloon sweep was perfo rmed. IMPRESSION: Fluoroscopic assistance provided for ERCP. ACT 112: Negative or not required by law. Electronically signed by: Caleb Hogan M.D. 03/12/2021 12:01 PM
[2021-03-12] MEDS: HEPARIN SOD 5,000 UNIT/0.5 ML VIAL SQ SCH ×2 (13:36→21:24)
--- NOTE | 2021-03-12 13:55 | Communication Note ---
Date of Service: March 12, 2021 Patient underwent ERCP this morning for evaluation of choledocholithiasis as noted on his intraoperative cholangiogram. We did remove 2 stones from the common bile duct that had been impacted within the distal component. He also had evidence of papillary stenosis. As the procedure was somewhat difficult the pancreatic stent was required for prophylaxis post procedure. Recommendation Continue IV hydration overnight Patient may have clear liquids Avoid use of nonsteroidals for 1 week if possible Continue broad-spectrum antibiotic coverage for total of 10 days KUB to be done as an outpatient in 4 weeks to ensure passage of the pancreatic stent Please call with any questions or concerns over the weekend.
--- NOTE | 2021-03-12 14:07 | Hospitalist Progress Note ---
Date of Service March 12, 2021 Assessment & Plan (1) Cholelithiasis: Plan: Patient has symptomatic cholelithiasis with elevated bilirubin and concern for cholecystitis. Taken to the operating room on for laparoscopic cholecystectomy. Significant inflammatory changes seen intraoperatively. Possible intraductal filling defect was seen in the common bile duct during intraoperative cholangiography and the patient is slated to have an ERCP on 03/12/2021. Postoperatively the patient is doing well pain is controlled he is having significant drainage in his JANES drain and around it in the right quadrant however it is noted the patient did have significant irrigation during the procedure. Incidentally noted bilateral renal cysts are seen these are thin-walled. ERCP performed 03/12/2021 shows edematous major papilla, biliary papillary stenosis, benign. Choledocholithiasis was found with complete removal by biliary sphincterotomy and balloon extraction. One prophylactic pancreatic stent was placed in the ventral pancreatic duct. Patient be allowed clear liquids for dinner JANES drain remains in place at the surgical site (2) Elevated troponin: Plan: Patient's troponins remain elevated x3 did not peak or trend there is no acute changes on EKG echocardiogram was performed without regional wall motion abnormalities and a preserved ejection fraction. (3) New onset atrial flutter: Plan: Patient is of a permanent pacemaker his background rhythm seems to be atrial flutter. Anticoagulation will be considered once postoperative hemostasis is achieved. Patient does have rate control and consider atrial fib dose Eliquis once surgical hemostasis is achieved likely after drain has been removed (4) DVT prophylaxis: Plan: DVT prevention is SCDs until postoperative hemostasis is achieved Admission and Anticipated Discharge Date Admission Date: March 11, 2021 Subjective Patient was seen postoperatively he was doing well. JANES drain in his right upper quadrant was draining a serosanguineous fluid. He had no chest pain pressure shortness of breath did have a bit of a scratchy throat feels slightly drowsy Review of Systems Review of Systems: Mild distress and fatigue no headache, no visual changes no speech or swallowing issues no chest pain, pressure or palpitations no shortness of breath, cough or wheezes Mild abdominal pain, mild nausea withoutvomiting, diarrhea or constipation no back pain, CVA tenderness or radicular pain no bruising, bleeding or rashes no focal signs of weakness or numbness or altered sensation no complaints of anxiety or depression.. Physical Exam Physical Exam: The patient appeared well nourished and normally developed. Vital signs as documented. Head exam is normocephalic atraumatic Neck is without JVD, no stridor Cardiac exam, Rhythm is regular.. No murmurs, rubs or gallops. Abdominal exam reveals normal bowel sounds, soft mild tenderness, janes drian and some leaking of serosanguineous fluid Extremities are nonedematous and both pedal pulses are present Neurologic exam is alert and oriented, no focal loss of strength or sensation Skin is without bruises or rashes ther than the operative site which is bandaged Psychologically is without concerns for anxiety or depression.. Results & Data Results & Data ([facility]) Vital Signs (Past 12 Hours) Vital Signs Temp Pulse Pulse Pulse Resp BP Pulse Ox 03/12/21 13:40 97.5 F L 50 L 16 150/82 H 94 03/12/21 13:10 97.9 F 51 L 18 152/86 H 93 03/12/21 12:40 98.1 F 51 L 16 132/80 92 03/12/21 12:10 50 L 16 121/73 93 03/12/21 12:00 97.5 F L 50 L 18 113/69 95 03/12/21 11:50 50 L 20 122/76 93 03/12/21 11:40 50 L 18 126/81 98 03/12/21 11:30 51 L 20 126/77 98 03/12/21 11:20 51 L 20 131/79 98 03/12/21 11:17 97.0 F L 53 L 18 132/83 96 03/12/21 09:56 57 L 18 149/82 H 92 03/12/21 08:00 50 L 03/12/21 07:30 98.1 F 50 L 17 135/81 93 03/12/21 03:31 98.6 F 56 L 18 117/74 94 PG Care Time/CCT Total # of Minutes Spent Total Time Spent with Patient: Total time spent is greater than 50% in coordination of care (as documented) at patient's floor/unit and/or counseling patient: Coding Level of Care Code 81806 Subseq Hosp Care Lvl 2 Diagnoses Cholelithiasis K80.20 Biliary obstruction: without biliary obstruction Cholecystitis presence: without cholecystitis Cholelithiasis location: gallbladder Elevated troponin R77.8 New onset atrial flutter I48.92 DVT prophylaxis Z29.9 (1) Cholelithiasis Biliary obstruction: without biliary obstruction Cholecystitis presence: without cholecystitis Cholelithiasis location: gallbladder Qualified Code(s): K80.20 - Calculus of gallbladder without cholecystitis without obstruction
--- NOTE | 2021-03-12 20:00 | Electrocardiogram Report ---
Test Reason : Blood Pressure : / mmHG Vent. Rate : 054 BPM Atrial Rate : 054 BPM P-R Int : 000 ms QRS Dur : 194 ms QT Int : 536 ms P-R-T Axes : 000 267 070 degrees QTc Int : 508 ms Ventricular-paced rhythm Underlying atrial fibrillation Abnormal ECG No previous ECGs available Confirmed by Ranjit Schuler ([id number]) on 03/12/2021 8:00:21 PM Referred By: REFERRED SELF Confirmed By:Ranjit Schuler
[2021-03-13] MEDS: SODIUM CHLORIDE 0.9% 1000ML 1,000 ML IV SCH (05:04)
[2021-03-13] MEDS: PIPERACILLIN/TAZOBACTAM 3.375 GM in DEXTROSE 5% 100 ML IV SCH (05:04)
[2021-03-13] MEDS: DOCUSATE SODIUM/SENNA 50/8.6MG TAB PO SCH ×2 (08:23→08:28)
[2021-03-13] MEDS: HEPARIN SOD 5,000 UNIT/0.5 ML VIAL SQ SCH (08:28)
--- NOTE | 2021-03-13 12:27 | Surgery Progress Note ---
Date of Service March 13, 2021 Assessment & Plan (1) Hx laparoscopic cholecystectomy: Plan: POD#2 lap yvonne, POD#1 ERCP (CBD stones found) Patient is feeling clinically well; denies pain. Only taking Tylenol. Tolerating clears Will advance diet as tolerates MACIEL drain with copious amount of serous drainage...will remove today F/U with Dr. Nunez as outpatient Admission and Anticipated Discharge Date Admission Date: March 11, 2021 Supervising Physician Co-Signing Physician Notes Patient seen examined, agree with above. Status post laparoscopic cholecystectomy, feeling well. Afebrile, stable vitals. Abdomen soft, nontender, nondistended. Incisions without infection. MACIEL drain with high output serosanguineous fluid. Patient had ERCP with stent placed yesterday. Advance diet to regular, drain removed, likely DC to home this afternoon. Follow-up with Dr. Nunez as an outpatient. Subjective Patient is feeling well. Denies abdominal discomfort. Tolerating clear liquids. Physical Exam Physical Exam: awake/alert Gastrointestinal (Abdomen): Inspection/Auscultation: + abdominal surgical incision (c/d/i, no signs of infection. ) and + abdominal surgical drain present (serous output) Percussion/Palpation: abdomen soft; abdomen nontender Results & Data ([facility]) Vital Signs (Past 12 Hours) Vital Signs Temp Pulse Resp BP Pulse Ox 03/13/21 11:52 36.3 C L 54 L 19 135/91 94 03/13/21 08:49 136/86 03/13/21 07:48 36.5 C 77 18 154/101 H 91 03/13/21 05:13 36.5 C 57 L 18 121/71 92 PG Care Time/CCT Total # of Minutes Spent Total Time Spent with Patient: Total time spent is greater than 50% in coordination of care (as documented) at patient's floor/unit and/or counseling patient: Coding Level of Care Code None Diagnoses Hx laparoscopic cholecystectomy Z90.49
--- NOTE | 2021-03-13 13:16 | Discharge Summary ---
Date of Service March 13, 2021 Admission HPI Per Admitting Provider Dr. 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 Patient had the onset of a sharp left-sided abdominal pain approximately 2 weeks ago, he suspected that it was ureteral colic and that he was going to pass a kidney stone. He had 1 episode of this that evening, and had recurrent left sided abdominal pain which seemed to be further down and has lower abdomen. He did not pass any stones to his knowledge. However, over the ensuing days, the patient noticed some discomfort, fullness in the RUQ and intermittent nausea without vomiting. He states that his abdomen feels distended, but it does not look distended to him. He and his ate lunch at a [employer] restaurant and he had their chicken soup (he stated it was a rather heavy meal, somewhat like a stew). following that meal, he noticed an increase in his right upper quadrant discomfort and some nausea. At its worst, he rates the pain as a 5/10 on a scale of 0-10. the discomfort does not radiate into his right shoulder blade, or his back. He is uncertain if it radiates to his right shoulder or right lateral chest because of his torn right rotator cuff causing symptoms in his right shoulder and lateral chest at times. Sometimes his symptoms seem to be exacerbated by eating, and other times they do not. He has not had any prol onged episodes of discomfort. He has not had any vomiting at all. He denies any fevers, chills, or rigors. He has not had any change in his bowel habits -- no diarrhea or constipation. He has not had any melena or hematochezia. Patient has not had any urinary symptoms despite having his left-sided "renal colic" nor did he notice any hematuria. Patient took [id number] Omeprazole x 5 days but is uncertain if this helped him in any way. Patient does not otherwise take any medications on a routine basis. He has no known drug allergies. 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 Patient's family history includes both his paternal grandfather and his father dying of pancreatic cancer at advanced ages. Patient has been working with Dr. Hewitt in Gastroenterology regarding the symptoms. A RUQ Ultrasound performed on 03/09/2021 showed: The liver is diffusely homogenous with normal contour and echogenicity. No focal mass lesions are seen. No intrahepatic ductal dilatation is seen. Linear hyperechoic foci with posterior shadowing are identified layering dependently within the gallbladder, which are consistent with gallstones. The gallbladder wall is not thickened. There is no pericholecystic fluid present. The common duct measures 0.4 cm in diameter at the level of the hepatic artery. The pancreas is not well visualized secondary to overlying bowel gas. Right kidney measures 12.2 cm in length. No hydronephrosis is seen. There are multiple renal cysts, measuring up to 2.5 x 3.3 x 2.4 cm with thin septations. Small amount of ascites is seen throughout the abdomen. IMPRESSION: Cholelithiasis is seen without renee bladder wall thickening. Patient does note mild pain with pressure. Findings are equivocal for acute cholecystitis. Because of ongoing symptoms and the presence of symptomatic cholelithiasis -- patient was advised to come into the emergency room for further evaluation, surg ical evaluation and treatment. Evaluation in the ER shows a mild anemia with a hemoglobin of 13.7 g/dL and hematocrit of 41.6%. WBC is within normal limits. BUN is normal at 16 mg/dL with a creatinine of 0.99 mg/dL. His total bilirubin is elevated at 3.0 mg/dL with a normal AST of 32 u/L and a normal ALT of 40 u/L. Lipase level is normal at 145 u/L. Patient's Troponin I level is elevated at 0.105 ng/mL -- but he has not had any cardiac or limiting cardiopulmonary symptoms whatsoever. Principal Diagnosis cholecystitis, choledolcholithiasis Discharge Exam gen aaox3 pleasant nad heent nc at mmm breathing unlabored no accessory muscles good effort skin no rashes no pallor or icterus neuro no focal deficits Discharge Data Allergies Allergy/AdvReac Type Severity Reaction Status Date / Time No Known Allergies Allergy Verified 03/10/21 10:49 Consultations 03/10/21 14:21 ED Decision to Admit Stat 03/10/21 15:26 Consult General Surgery Stat 03/10/21 18:56 Consult Gastroenterology Routine 03/11/21 12:44 Consult Gastroenterology Routine Procedures Performed Operation Date: 03/11/21 11:25 Actual Procedures p Laparoscopic Cholecystectomy with Intraoperative Cholangiogram - Rocky Nunez MD, FACS Operation Date: 03/12/21 10:25 Actual Procedures p Endoscopic Retrograde Cholangiopancreato - Justin Finley DO s EGD Stent Placement - Justin Finley DO Ordered Studies 03/10/21 11:25 CT abd pelvis IV con only Stat 03/11/21 [place] cholangiogram OR Routine 03/12/21 10:25 FL ERCP biliary ductal Routine Hospital Course (1) Cholelithiasis: Patient has symptomatic cholelithiasis with elevated bilirubin and concern for cholecystitis. Taken to the operating room on 03/11/21 for laparoscopic cholecystectomy. Significant inflammatory changes seen intraoperatively. Possible intraductal filling defect was seen in the common bile duct during intraoperative cholangiography and the patient had ERCP on 03/12/2021. ERCP performed 03/12/2021 shows edematous major papilla, biliary papillary stenosis, benign. Choledocholithiasis was found with complete removal by biliary sphincterotomy and balloon extraction. One prophylactic pancreatic stent was placed in the ventral pancreatic duct. Postoperatively the patient is doing well pain is controlled drain removed - ok for home from surgical and medical team perspectives. Outpt PCP, GI, surgery follow up -- surgery sent Rx for abx, GI notes KUB in 4wks to ensure passage of stent Incidentally noted bilateral renal cysts are seen these are thin-walled. (2) Elevated troponin: Patient's troponins remained elevated x3 did not peak or trend there is no acute changes on EKG echocardiogram was performed without regional wall motion abnormalities and a preserved ejection fraction. Likely demand due to cholecystitis (with LVH leading to an increased troponin leak) (3) New onset atrial flutter: Patient is of a permanent pacemaker his background rhythm seems to be atrial flutter. Rate controlled - no meds needed for this; for anticoagulation but no immediate urgency - will likely start in the next week or so (4) DVT prophylaxis: SCDs. stable for home Total Time Total Time Spent Total Time Spent (In Minutes): <30 Discharge Plan Discharge Items Patient Disposition: Home - Self-Care Reason For Visit: CHOLELITHIASIS, SYMPTOMATIC, ELEVATED TROPONIN I Discharge Diagnosis: Acute/chronic cholecystitis, choledocholithiasis Activity: Per Instructions section Activity Comment: light activity for 4 weeks Lifting: No more than 10 pounds Bathing Comment: may shower; no soaking in tubs/pools Sexual Activity: When tolerated Exercise/Sports: Wait until after follow-up appointment Exercise Comment: wait 4 weeks Driving/Machine Use: no driving while taking narcotics for pain Non-emergency contact: Primary Care Provider and Surgeon Call non-emergency contact if: you have any medication questions, your symptoms worsen, your pain is not controlled, your pain is concerning for you, you have a fever, your temperature is above 101.5, your wound has increased redness, your w ound has increased drainage and your wound pain has increased Follow-up/Referrals: Rocky Nunez MD, FACS [Physician] - Quentin Sawant MD [Primary Care Provider] - Diet: Regular Addtl Attending Provider Instructions: SPECIAL CARE INSTRUCTIONS: * Cover incisions and change daily for comfort/drainage. * May use ibuprofen for pain as tolerated. * Expect some swelling and bruising. Call your doctor if: * Temperature above 101 degrees * Pain not relieved by pain medicine ordered * There is increased drainage or redness from any incision * You have any unanswered questions or concerns [phone] FOLLOW UP VISIT: If not already scheduled, please call the office for a follow-up visit. Next weeksome suture removal OFFICE PHONE NUMBER: Dr. Nunez Office Cholecystitis/choledocholithiasis -Fortunately this is improving nicely, and you are tolerating regular food well. It definitely appears safe to get you home -Finish out antibiotics with the Augmentin prescribed by Dr. Nunez, as it gets closer to the end of the course of antibiotics, if you notice anything that seems "off" (such as more pain, more right upper abdominal discomfort, low-grade fevers, etc.) then I would have you check in with Dr. Nunez as far as maybe need ing to extend the course of antibiotics. That said, the need to extend will be extremely unlikely -Avoid anti-inflammatories for the next week, particularly as it relates to having had the ERCP -A small percentage of patients post cholecystectomy have a degree of fat malabsorption, typically this manifests as abrupt onset of diarrhea within an hour or so of eating. While this does not happen often, it can be a bit frustrating when it doestherefore I was like to give everybody a "heads up" that is possible. If you notice this happening, simply move to a strictly low- fat diet for about a week, and then retry regular foods at one meal to see how you do -Follow-up with Dr. Nunez as scheduled Atrial flutter -You have been in atrial flutter while here. -Fortunately your rates have been under control, so there is nothing that we would need to add medically right now -Given that you are [id number] calculates to be a 3, I would recommend anticoagulation once you have had a chance to heal from surgery. Obviously discuss this further with Dr. Torres take care of yourself, and hopefully the next time I run into you it's at a restaurant or a [employer] - not at work!! Pending Studies at Discharge: Yes Studies:: surgical pathology Stand-Alone Forms: [facility] [email or web address], Smoking Cessation Medications and DC Order Prescriptions: New amoxicillin-pot clavulanate [Augmentin] 875-125 mg tablet 1 tab PO BID 5 Days Qty: 10 RF: 0 No Action No Known Home Medications RF: 0 Discharge Orders: Discharge Order (Routine); Ordered 03/13/21 Ordered By: Stoney Breen/Other Patient Handouts: Incision Care, Incision Care: Abdomen Admission Data Admit Date/Time: 03/11/21 07:49 Attending Provider: Stoney Hernandez Admit Provider: Lb Parks Primary Care Provider: Quentin Sawant Other Providers: Lb Parks ; Rocky Nunez ; Johny Hewitt ; Maren Asher ; Gisell Grace ; Ji Smalls ; Elyssa Gardner ; Shen Kirby ; Justin Finley ; Trina Mcnulty ; Girma Grider ; Payton Denis ; Reshma Calvo ; Marisol Mercado ; Jacqueline Mcbride ; Adrian Ivey Other Interventions: Discharge Summary Assessment (RN) Last Done: 03/13/21 12:28 Coding Level of Care Code D/C DAY MANAGEMENT <30 MINS Diagnoses Cholelithiasis K80.20 Biliary obstruction: without biliary obstruction Cholecystitis presence: without cholecystitis Cholelithiasis location: gallbladder Elevated troponin R77.8 New onset atrial flutter I48.92 DVT prophylaxis Z29.9
== END 2021-03-13 13:41 | disposition home or self-care (01) | DRG 418 ==
LOC: ED 09:45 → 2S 09:45 → SUATTDRO 03-11 07:49

== ENCOUNTER 2023-08-02 11:18 | Inpatient (IN) ==
[2023-08-02] MEDS: SODIUM CHLORIDE 0.9% 500 ML IV ONE ×3 (11:56→13:35)
--- NOTE | 2023-08-02 12:06 | Emergency Department Note ---
Impression & Plan Sepsis, Acute renal failure, Cardiomyopathy, Cardiac amyloidosis, Hyperkalemia, Elevated troponin, Hypotension ED Provider Note NAME: VICKY LEE AGE: 78 SEX: M : 1945 ARRIVES VIA: Ambulance INFORMANT: Patient ED PROVIDER(S): Geovanni Hdz MD CHIEF COMPLAINT: Back pain, referred. 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 He was seen outpatient and initially tried on a muscle relaxer and then gabapentin where the muscle relaxer did not have any improvement and he did not feel he could tolerate gabapentin. Patient denies any urinary retention. He denies any loss of bowel control though does report one evening he did not exactly make it to the bathroom and had some leakage due to moving slowly from his pain but was able to make to the bathroom to finish his BM. The patient denies any fevers, chills, cough, congestion, chest pain, shortness of breath. He reports he does take his diuretic, torsemide, as needed based on his weight and leg edema. He reports he did take a dose last Monday. He does acknowledge that he has had significant weight loss since February when he was weighing 98 kg whereas last month he had weighed 78 kg. He reports this was all fluid per his recollection. He reports his leg swelling is within his baseline range and good for him for the most part. He reports feeling generalized weakness and denies dizziness, lightheadedness or syncope/near syncope. Case was reviewed with Dr. Wan who saw the patient last month for his back pain and referred the patient to emergency department. Agrees with labs and CT imaging to begin. We agree that MRI may also help to clarify back pain if not identified on CT. On my evaluation the patient is fatigued/ill appearing, afebrile with blood pressure 70-80s/50-60s and vital signs otherwise stable. Patient has dry mucous membranes and delayed capillary refill of 2+ seconds. He exhibits 1+ bilateral lower extremity edema with venous stasis discoloration and additional mild erythema of the medial left forefoot and medial malleolus. Generalized weakness with increased weakness of bilateral lower extremities and trunk. Given the patient's weakness and worsening symptoms on our initial discussion we did discuss the likelihood that he will need to be admitted to the hospital. However, he preferred to defer to this decision until additional information was obtained and have described the fact that he is the primary caregiver for his who has medical problems. EKG demonstrates ventricular paced rhythm with intermittent PVCs. Chest x-ray demonstrates cardiomegaly without radiographic evidence of pulmonary edema. Additional note is made of suspected subacute right anterior sixth rib fracture. No pneumothorax. Given the patient's hypotension and his report of being volume down with decreased weight he was given initial 500 cc of fluid with caution given his history of cardiac amyloid/CHF. Blood pressure however did not improve and so he was given a second bolus but no significant improvement with blood pressure in the 70s/50s. Upon my reassessment the patient continued to mentate seemingly normally though in retrospect may have been able to compensate well due to his medical expertise. I did perform a limited bedside cardiac ultrasound which demonstrated small pericardial effusion without evidence of tamponade. Patient's known concentric left ventricular hypertrophy in the setting of the amyloid is seen. Large volume ascites also noted within the abdomen which the patient reports he is aware of and has been there due to his amyloid. Given the persistence of the patient's hypotension in the setting of concentric LVH patient was given a third 500 cc fluid bolus and phenylephrine was initiated given concern for possible potential development of outflow obstruction. 30 cc/kg of IV fluids deferred secondary to patient's cardiomyopathy and renal failure. Patient's hemodynamics did stabilize subsequently, though still guarded. Initial i-STAT chemistry demonstrates potassium of 6.5 with creatinine of 1.8 which was reviewed with the patient and again we discussed recommendations that he will need admission however he did feel this finding is likely related to his overdiuresis. WBC 15 K with neutrophil predominance though no left shift, nonspecific. H/H 9.3/27.9, decreased from February 2023 with macrocytic MCV. Platelets within normal limits. INR is 1.4 in setting of being on Eliquis and is approximate to prior in February 2023. Initial i-STAT potassium was 6.5 with creatinine of 1.8 which was subsequently confirmed on lab chemistry with a potassium of 6.5 and creatinine of 1.83. Total bilirubin 2.2, similar to prior. AST ALT within normal limits. Initial high-sensitivity troponin 82, nonspecific. Albumin 3.8. TSH 6.2 with free T4 1.4 within normal limits. Patient was treated with insulin with 2amps D50 in addition to 2 g of calcium for the patient's hyperkalemia. Plan to await CT of the abdomen pelvis prior to initiating Zirconium. Case was discussed with Dr. Hankins, [place] cardiology. Appreciate consultation recommendations. Stat echo was performed and no significant changes seen in the patient's known cardiomyopathy with EF of 45% and is concentric LVH in the setting of cardiac amyloid. He also did discuss the patient's case with [facility] [place]. Suarez. Given leukocytosis with hypotension and worsening renal failure recommends expanding infectious workup and so blood culture, lactic acid and procalcitonin ordered. Empiric antibiotics initiated with IV Zosyn for now. CT imaging subsequently completed. CT of the head was performed and demonstrates multiple foci of venous gas likely related to IV insertion. CT of the chest demonstrates cardiomegaly with possible pulmonary edema where mild interlobular septal thickening seen in the dependent portion of the lungs. Description of gas within the subclavian vein, external jugular vein and pulmonary trunk likely related to IV placement. CT of the abdomen pelvis was performed and demonstrates interval progression of fluid overload compared to February 2021 where a large amount of ascites as described. Left-sided nephrolithiasis is seen. No ureteral stones or hydronephrosis. Multiple subacute healing fractures are seen. Zirconium ordered. Case was discussed with Dr. Suarez, [facility] hospitalist, who evaluated the patient for admission. Further management per admitting team and ICU. Triage Nursing notes reviewed and agree them. Prior/external medical records reviewed Vital Signs: reviewed Differential diagnosis: Musculoskeletal, disc herniation, fracture, metastatic disease, cord compression, discitis, sciatica, cauda equina, infection, aortic disease, renal colic, gastrointestinal, as well as other pathologies. ER treatment provided: See below. Diagnostics interpreted by me: ECG: Ventricular paced rhythm with premature ventricular complexes, 96 bpm, no overt acute ischemia. Similar to prior. Cardiac Monitoring: An order for continuous cardiac monitoring was placed and demonstrated Ventricular paced rhythm with premature ventricular complexes, 96 bpm. Laboratory studies: See below Imaging studies: See below Consultation(s): Dr. Wan, [place] neurology. Dr. Hankins, [place] cardiology. Dr. Suarez, [facility] hospitalist. 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 He was seen outpatient and initially tried on a muscle relaxer and then gabapentin where the muscle relaxer did not have any improvement and he did not feel he could tolerate gabapentin. Patient denies any urinary retention. He denies any loss of bowel control though does report one evening he did not exactly make it to the bathroom and had some leakage due to moving slowly from his pain but was able to make to the bathroom to finish his BM. The patient denies any fevers, chills, cough, congestion, chest pain, shortness of breath. He reports he does take his diuretic, torsemide, as needed based on his weight and leg edema. He reports he did take a dose last Monday. He does acknowledge that he has had significant weight loss since February when he was weighing 98 kg whereas last month he had weighed 78 kg. He reports this was all fluid per his recollection. He reports his leg swelling is within his baseline range and good for him for the most part. He reports feeling generalized weakness and denies dizziness, lightheadedness or syncope/near syncope. Case was reviewed with Dr. Wan who saw the patient last month for his back pain and referred the patient to emergency department. Agrees with labs and CT imaging to begin. We agree that MRI may also help to clarify back pain if not identified on CT. ROS: See above HPI for pertinent positives & negatives. A total of 10 systems reviewed and were otherwise negative. VITALS:See Below PHYSICAL EXAMINATION: GENERAL: Awake, alert, fatigued/ill-appearing, in no distress HENT: Normocephalic, atraumatic. Oropharynx with dry mucous membranes and otherwise unremarkable. EYES: Normal conjunctiva. Sclera non-icteric. EOMI. No nystamgus. PEARRL. NECK: Supple. No nuchal rigidity. FROM. No JVD. RESPIRATORY: Clear to auscultation. CARDIAC: Regular rate, normal rhythm. Extremities warm. Capillary refill 2+s. Palpable pedal pulses. ABDOMEN: Soft, non-distended. No tenderness to palpation. No rebound or guarding. No masses. MUSCULOSKELETAL: Chest examination reveals no tenderness. The back is symmetrical on inspection without obvious abnormality. No midline ttp or stepoffs. There is no CVA tenderness to palpation. LOWER EXTREMITIES: Calves are equal size bilaterally and non-tender. 1+ BLE edema. Mild erythema of the medial left forefoot and medial malleolus. NEURO: No focal sensory or motor deficits noted. Generalized weakness with increased weakness of bilateral lower extremities and trunk. Reflexes are 2+ bilaterally. SKIN: Mild pallor. No jaundice noted. Patch of subacute ecchymosis of right scapular region. ED COURSE: Critical Care: I have personally spent greater than 45 minutes of critical care time in the direct management of this patient. This includes bedside care, interpretation of diagnostic studies, and testing, discussion with consultants, patient, and family members, and other required patient management activities. This 45 minutes is in excess of all separately billable procedures. Geovanni Hdz MD Past Med/Surg History Medical History Atrial fibrillation, permanent 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 Nunez 03-11-2021 Social History Smoking Status: Never smoker Hx Alcohol Use: Yes Alcohol type: wine Hx Substance Use: No Preferred Language: Mohawk Communication Ability: Effective Visual Impairment: No Limitations Operations Specialists Required: No Beliefs That Will Affect Care: None marital status: Current Living Situation: Spouse How many Children do You have: 2 Feels Safe at Home: Yes Safety Concerns: Feels Safe At This Time Assistive Devices: Cane and Glasses Allergies Allergies Allergy/AdvReac Type Severity Reaction Status Date / Time No Known Allergies Allergy Verified 06/05/23 13:38 Home Meds Home Medications Medication Instructions Recorded Confirmed tafamidis meglumine 20 mg capsule 20 mg PO DAILY 02/24/23 08/02/23 (Vyndaqel) torsemide 10 mg tablet 50 mg PO UD 06/05/23 08/02/23 acetaminophen 325 mg capsule 325 mg PO QID PRN Pain 07/14/23 08/02/23 (Tylenol) spironolactone 25 mg tablet 25 mg PO UD 08/02/23 08/02/23 Previous Rx's Medication Instructions Recorded metoprolol succinate 25 mg 12.5 mg (1/2 x 25 mg) PO DAILY #45 09/07/22 tablet,extended release 24 hr tabs losartan 25 mg tablet 25 mg PO DAILY #90 tabs 09/27/22 methocarbamol 500 mg tablet 500 mg PO TID #90 tabs 07/14/23 apixaban 5 mg tablet (Eliquis) 5 mg PO BID #180 tabs 07/20/23 gabapentin 300 mg capsule 300 mg PO BID #60 caps 07/24/23 Results & Data (ED) Vital Signs Vital Signs - 24 hr 08/02/23 11:27 08/02/23 11:29 08/02/23 11:30 Temperature Temperature Source Pulse Rate 87 76 92 H Pulse Rate from SpO2 Sensor 76 77 Pulse Rhythm Pulse Strength Respiratory Rate 19 15 Respiratory Effort / Characteristics Respiratory Depth Respiratory Pattern Blood Pressure Blood Pressure [Right Arm] Blood Pressure Mean Blood Pressure Mean [Right Arm] Blood Pressure Position Pulse Oximetry 95 96 Oxygen Delivery Method Room Air Room Air Sepsis Recent Fever Within 48 Hours Sepsis New/Unexplained Change in Mental Status Sepsis Action Taken by Nursing 08/02/23 11:33 08/02/23 11:35 08/02/23 11:35 Temperature 36.7 C Temperature Source Oral Pulse Rate 77 77 Pulse Rate from SpO2 Sensor 77 Pulse Rhythm Regular Pulse Strength Normal Respiratory Rate 18 20 Respiratory Effort / Characteristics Non-Labored Spontaneous Respiratory Depth Normal Respiratory Pattern Regular Blood Pressure 79/56 L 84/58 L Blood Pressure [Right Arm] Blood Pressure Mean 63 63 Blood Pressure Mean [Right Arm] Blood Pressure Position Sitting Pulse Oximetry 95 96 Oxygen Delivery Method Room Air Room Air Sepsis Recent Fever Within 48 Hours No Sepsis New/Unexplained Change in Mental Status No Sepsis Action Taken by Nursing No Action Required 08/02/23 11:39 08/02/23 11:39 08/02/23 11:53 Temperature Temperature Source Pulse Rate 76 76 Pulse Rate from SpO2 Sensor 76 Pulse Rhythm Pulse Strength Respiratory Rate 23 19 Respiratory Effort / Characteristics Respiratory Depth Respiratory Pattern Blood Pressure 86/62 L Blood Pressure [Right Arm] Blood Pressure Mean 66 Blood Pressure Mean [Right Arm] Blood Pressure Position Pulse Oximetry 98 Oxygen Delivery Method Room Air Sepsis Recent Fever Within 48 Hours Sepsis New/Unexplained Change in Mental Status Sepsis Action Taken by Nursing 08/02/23 11:53 08/02/23 11:55 08/02/23 12:00 Temperature Temperature Source Pulse Rate 77 76 Pulse Rate from SpO2 Sensor Pulse Rhythm Regular Pulse Strength Respiratory Rate 16 22 Respiratory Effort / Characteristics Respiratory Depth Respiratory Pattern Blood Pressure 87/53 L Blood Pressure [Right Arm] Blood Pressure Mean 62 Blood Pressure Mean [Right Arm] Blood Pressure Position Pulse Oximetry 96 Oxygen Delivery Method Room Air Sepsis Recent Fever Within 48 Hours Sepsis New/Unexplained Change in Mental Status Sepsis Action Taken by Nursing 08/02/23 12:01 08/02/23 12:01 08/02/23 12:16 Temperature Temperature Source Pulse Rate 76 77 Pulse Rate from SpO2 Sensor Pulse Rhythm Pulse Strength Respiratory Rate 21 16 Respiratory Effort / Characteristics Respiratory Depth Respiratory Pattern Blood Pressure 84/56 L Blood Pressure [Right Arm] Blood Pressure Mean 65 Blood Pressure Mean [Right Arm] Blood Pressure Position Pulse Oximetry Oxygen Delivery Method Sepsis Recent Fever Within 48 Hours Sepsis New/Unexplained Change in Mental Status Sepsis Action Taken by Nursing 08/02/23 12:16 08/02/23 12:16 08/02/23 12:30 Temperature Temperature Source Pulse Rate 77 Pulse Rate from SpO2 Sensor Pulse Rhythm Pulse Strength Respiratory Rate 16 Respiratory Effort / Characteristics Respiratory Depth Respiratory Pattern Blood Pressure 85/54 L 85/54 L Blood Pressure [Right Arm] Blood Pressure Mean 58 58 Blood Pressure Mean [Right Arm] Blood Pressure Position Pulse Oximetry Oxygen Delivery Method Sepsis Recent Fever Within 48 Hours Sepsis New/Unexplained Change in Mental Status Sepsis Action Taken by Nursing 08/02/23 12:31 08/02/23 12:31 08/02/23 12:34 Temperature Temperature Source Pulse Rate 77 76 Pulse Rate from SpO2 Sensor Pulse Rhythm Pulse Strength Respiratory Rate 17 17 Respiratory Effort / Characteristics Respiratory Depth Respiratory Pattern Blood Pressure 71/51 L Blood Pressure [Right Arm] Blood Pressure Mean 56 Blood Pressure Mean [Right Arm] Blood Pressure Position Pulse Oximetry Oxygen Delivery Method Sepsis Recent Fever Within 48 Hours Sepsis New/Unexplained Change in Mental Status Sepsis Action Taken by Nursing 08/02/23 12:34 08/02/23 12:43 08/02/23 12:43 Temperature Temperature Source Pulse Rate 76 Pulse Rate from SpO2 Sensor Pulse Rhythm Pulse Strength Respiratory Rate 15 Respiratory Effort / Characteristics Respiratory Depth Respiratory Pattern Blood Pressure 76/47 L 67/48 L Blood Pressure [Right Arm] Blood Pressure Mean 57 53 Blood Pressure Mean [Right Arm] Blood Pressure Position Pulse Oximetry Oxygen Delivery Method Sepsis Recent Fever Within 48 Hours Sepsis New/Unexplained Change in Mental Status Sepsis Action Taken by Nursing 08/02/23 12:43 08/02/23 12:45 08/02/23 12:45 Temperature Temperature Source Pulse Rate 76 Pulse Rate from SpO2 Sensor Pulse Rhythm Pulse Strength Respiratory Rate 20 Respiratory Effort / Characteristics Respiratory Depth Respiratory Pattern Blood Pressure 67/48 L 77/45 L Blood Pressure [Right Arm] Blood Pressure Mean 53 58 Blood Pressure Mean [Right Arm] Blood Pressure Position Pulse Oximetry Oxygen Delivery Method Sepsis Recent Fever Within 48 Hours Sepsis New/Unexplained Change in Mental Status Sepsis Action Taken by Nursing 08/02/23 13:00 08/02/23 13:00 08/02/23 13:04 Temperature Temperature Source Pulse Rate 77 77 Pulse Rate from SpO2 Sensor 80 207 H Pulse Rhythm Pulse Strength Respiratory Rate 16 17 Respiratory Effort / Characteristics Respiratory Depth Respiratory Pattern Blood Pressure 72/51 L Blood Pressure [Right Arm] Blood Pressure Mean 58 Blood Pressure Mean [Right Arm] Blood Pressure Position Pulse Oximetry 82 L 82 L Oxygen Delivery Method Sepsis Recent Fever Within 48 Hours Sepsis New/Unexplained Change in Mental Status Sepsis Action Taken by Nursing 08/02/23 13:04 08/02/23 13:11 08/02/23 13:11 Temperature Temperature Source Pulse Rate 76 Pulse Rate from SpO2 Sensor Pulse Rhythm Pulse Strength Respiratory Rate 16 Respiratory Effort / Characteristics Respiratory Depth Respiratory Pattern Blood Pressure 72/48 L 73/45 L Blood Pressure [Right Arm] Blood Pressure Mean 53 52 Blood Pressure Mean [Right Arm] Blood Pressure Position Pulse Oximetry 96 Oxygen Delivery Method Room Air Sepsis Recent Fever Within 48 Hours Sepsis New/Unexplained Change in Mental Status Sepsis Action Taken by Nursing 08/02/23 13:13 08/02/23 13:17 08/02/23 13:17 Temperature Temperature Source Pulse Rate 76 Pulse Rate from SpO2 Sensor Pulse Rhythm Pulse Strength Respiratory Rate 18 15 Respiratory Effort / Characteristics Non-Labored Spontaneous Respiratory Depth Normal Respiratory Pattern Regular Blood Pressure 74/46 L Blood Pressure [Right Arm] 74/46 L Blood Pressure Mean 55 Blood Pressure Mean [Right Arm] 55 Blood Pressure Position Pulse Oximetry 96 97 96 Oxygen Delivery Method Room Air Room Air Room Air Sepsis Recent Fever Within 48 Hours Sepsis New/Unexplained Change in Mental Status Sepsis Action Taken by Nursing 08/02/23 13:26 08/02/23 13:26 08/02/23 13:30 Temperature Temperature Source Pulse Rate 76 76 Pulse Rate from SpO2 Sensor 76 78 Pulse Rhythm Pulse Strength Respiratory Rate 15 16 Respiratory Effort / Characteristics Respiratory Depth Respiratory Pattern Blood Pressure 72/49 L Blood Pressure [Right Arm] Blood Pressure Mean 54 Blood Pressure Mean [Right Arm] Blood Pressure Position Pulse Oximetry 93 89 L Oxygen Delivery Method Room Air Sepsis Recent Fever Within 48 Hours Sepsis New/Unexplained Change in Mental Status Sepsis Action Taken by Nursing 08/02/23 13:30 08/02/23 13:32 08/02/23 13:32 Temperature Temperature Source Pulse Rate 76 Pulse Rate from SpO2 Sensor 75 Pulse Rhythm Pulse Strength Respiratory Rate 16 Respiratory Effort / Characteristics Respiratory Depth Respiratory Pattern Blood Pressure 64/49 L 67/48 L Blood Pressure [Right Arm] Blood Pressure Mean 52 54 Blood Pressure Mean [Right Arm] Blood Pressure Position Pulse Oximetry 92 Oxygen Delivery Method Sepsis Recent Fever Within 48 Hours Sepsis New/Unexplained Change in Mental Status Sepsis Action Taken by Nursing 08/02/23 13:36 08/02/23 13:36 08/02/23 13:45 Temperature Temperature Source Pulse Rate 76 Pulse Rate from SpO2 Sensor 76 Pulse Rhythm Pulse Strength Respiratory Rate 14 Respiratory Effort / Characteristics Respiratory Depth Respiratory Pattern Blood Pressure 71/52 L 77/51 L Blood Pressure [Right Arm] Blood Pressure Mean 57 61 Blood Pressure Mean [Right Arm] Blood Pressure Position Pulse Oximetry 92 Oxygen Delivery Method Sepsis Recent Fever Within 48 Hours Sepsis New/Unexplained Change in Mental Status Sepsis Action Taken by Nursing 08/02/23 13:45 08/02/23 13:50 08/02/23 13:50 Temperature Temperature Source Pulse Rate 75 78 Pulse Rate from SpO2 Sensor Pulse Rhythm Pulse Strength Respiratory Rate 17 17 Respiratory Effort / Characteristics Respiratory Depth Respiratory Pattern Blood Pressure 78/51 L Blood Pressure [Right Arm] Blood Pressure Mean 56 Blood Pressure Mean [Right Arm] Blood Pressure Position Pulse Oximetry 78 L Oxygen Delivery Method Sepsis Recent Fever Within 48 Hours Sepsis New/Unexplained Change in Mental Status Sepsis Action Taken by Nursing 08/02/23 13:50 08/02/23 13:54 08/02/23 13:54 Temperature Temperature Source Pulse Rate 79 Pulse Rate from SpO2 Sensor Pulse Rhythm Pulse Strength Respiratory Rate 14 Respiratory Effort / Characteristics Respiratory Depth Respiratory Pattern Blood Pressure 78/51 L 76/50 L Blood Pressure [Right Arm] Blood Pressure Mean 56 61 Blood Pressure Mean [Right Arm] Blood Pressure Position Pulse Oximetry Oxygen Delivery Method Sepsis Recent Fever Within 48 Hours Sepsis New/Unexplained Change in Mental Status Sepsis Action Taken by Nursing 08/02/23 13:55 08/02/23 13:55 08/02/23 14:22 Temperature Temperature Source Pulse Rate 79 Pulse Rate from SpO2 Sensor 78 79 Pulse Rhythm Pulse Strength Respiratory Rate 15 Respiratory Effort / Characteristics Respiratory Depth Respiratory Pattern Blood Pressure 80/48 L Blood Pressure [Right Arm] Blood Pressure Mean 57 Blood Pressure Mean [Right Arm] Blood Pressure Position Pulse Oximetry 94 99 Oxygen Delivery Method Room Air Sepsis Recent Fever Within 48 Hours Sepsis New/Unexplained Change in Mental Status Sepsis Action Taken by Nursing 08/02/23 14:27 08/02/23 14:27 08/02/23 14:30 Temperature Temperature Source Pulse Rate 79 78 Pulse Rate from SpO2 Sensor 79 79 Pulse Rhythm Pulse Strength Respiratory Rate 16 18 Respiratory Effort / Characteristics Respiratory Depth Respiratory Pattern Blood Pressure 94/65 L Blood Pressure [Right Arm] Blood Pressure Mean 70 Blood Pressure Mean [Right Arm] Blood Pressure Position Pulse Oximetry 97 97 Oxygen Delivery Method Room Air Room Air Sepsis Recent Fever Within 48 Hours Sepsis New/Unexplained Change in Mental Status Sepsis Action Taken by Nursing 08/02/23 14:30 08/02/23 14:45 08/02/23 14:45 Temperature Temperature Source Pulse Rate 79 Pulse Rate from SpO2 Sensor 79 Pulse Rhythm Pulse Strength Respiratory Rate 17 Respiratory Effort / Characteristics Respiratory Depth Respiratory Pattern Blood Pressure 93/62 L 105/70 Blood Pressure [Right Arm] Blood Pressure Mean 77 78 Blood Pressure Mean [Right Arm] Blood Pressure Position Pulse Oximetry 99 Oxygen Delivery Method Sepsis Recent Fever Within 48 Hours Sepsis New/Unexplained Change in Mental Status Sepsis Action Taken by Nursing 08/02/23 15:00 08/02/23 15:19 08/02/23 15:19 Temperature Temperature Source Pulse Rate 80 Pulse Rate from SpO2 Sensor 80 Pulse Rhythm Pulse Strength Respiratory Rate 22 16 Respiratory Effort / Characteristics Respiratory Depth Respiratory Pattern Blood Pressure 98/58 L Blood Pressure [Right Arm] Blood Pressure Mean 60 Blood Pressure Mean [Right Arm] Blood Pressure Position Pulse Oximetry 96 Oxygen Delivery Method Sepsis Recent Fever Within 48 Hours Sepsis New/Unexplained Change in Mental Status Sepsis Action Taken by Nursing 08/02/23 15:30 08/02/23 15:32 08/02/23 15:32 Temperature Temperature Source Pulse Rate 79 79 Pulse Rate from SpO2 Sensor 79 79 Pulse Rhythm Pulse Strength Respiratory Rate 21 15 Respiratory Effort / Characteristics Respiratory Depth Respiratory Pattern Blood Pressure 105/58 L Blood Pressure [Right Arm] Blood Pressure Mean 74 Blood Pressure Mean [Right Arm] Blood Pressure Position Pulse Oximetry 98 97 Oxygen Delivery Method Sepsis Recent Fever Within 48 Hours Sepsis New/Unexplained Change in Mental Status Sepsis Action Taken by Nursing 08/02/23 15:59 08/02/23 15:59 08/02/23 16:00 Temperature Temperature Source Pulse Rate 79 Pulse Rate from SpO2 Sensor 91 H Pulse Rhythm Pulse Strength Respiratory Rate 21 Respiratory Effort / Characteristics Respiratory Depth Respiratory Pattern Blood Pressure 96/61 L 97/60 L Blood Pressure [Right Arm] Blood Pressure Mean 71 65 Blood Pressure Mean [Right Arm] Blood Pressure Position Pulse Oximetry 97 Oxygen Delivery Method Sepsis Recent Fever Within 48 Hours Sepsis New/Unexplained Change in Mental Status Sepsis Action Taken by Nursing 08/02/23 16:00 08/02/23 16:17 08/02/23 16:17 Temperature Temperature Source Pulse Rate 80 79 Pulse Rate from SpO2 Sensor 88 Pulse Rhythm Pulse Strength Respiratory Rate 18 Respiratory Effort / Characteristics Respiratory Depth Respiratory Pattern Blood Pressure 97/53 L Blood Pressure [Right Arm] Blood Pressure Mean 77 Blood Pressure Mean [Right Arm] Blood Pressure Position Pulse Oximetry 98 Oxygen Delivery Method Room Air Sepsis Recent Fever Within 48 Hours Sepsis New/Unexplained Change in Mental Status Sepsis Action Taken by Nursing 08/02/23 16:17 08/02/23 16:30 08/02/23 16:31 Temperature Temperature Source Pulse Rate 80 81 80 Pulse Rate from SpO2 Sensor 80 80 80 Pulse Rhythm Pulse Strength Respiratory Rate 16 18 21 Respiratory Effort / Characteristics Respiratory Depth Respiratory Pattern Blood Pressure Blood Pressure [Right Arm] Blood Pressure Mean Blood Pressure Mean [Right Arm] Blood Pressure Position Pulse Oximetry 98 98 99 Oxygen Delivery Method Room Air Room Air Sepsis Recent Fever Within 48 Hours Sepsis New/Unexplained Change in Mental Status Sepsis Action Taken by Nursing 08/02/23 16:31 Temperature Temperature Source Pulse Rate Pulse Rate from SpO2 Sensor Pulse Rhythm Pulse Strength Respiratory Rate Respiratory Effort / Characteristics Respiratory Depth Respiratory Pattern Blood Pressure 94/53 L Blood Pressure [Right Arm] Blood Pressure Mean 66 Blood Pressure Mean [Right Arm] Blood Pressure Position Pulse Oximetry Oxygen Delivery Method Sepsis Recent Fever Within 48 Hours Sepsis New/Unexplained Change in Mental Status Sepsis Action Taken by Nursing Laboratory Data Attestation: I reviewed the patient's lab results. 08/02/23 11:30 08/02/23 16:30 Lab Results 08/02/23 08/02/23 08/02/23 Range/Units 11:30 12:22 13:02 WBC 15.19 H (4.8-10.8) K/ul RBC 2.78 L (4.70-6.10) M/uL Hgb 9.3 L (14.0-18.0) g/dl POC Hgb 9.9 L (14.0-18.0) g/dl Hct 27.9 L (42.0-52.0) % POC Hct 29 L (42-52) % MCV 100.4 H (80.0-100.0) fL MCH 33.5 (25.0-34.0) pg MCHC 33.3 (32.0-36.0) g/dL RDW Std Deviation 54.3 H (36.4-46.3) fL RDW Coeff of Mariel 14.6 H (11.5-14.5) % Plt Count 231 (130-400) K/uL MPV 9.8 (9.4-12.4) fL Immature Gran % (Auto) 0.7 % Neut % (Auto) 93.6 % Lymph % (Auto) 1.7 % [place] % (Auto) 3.8 % Eos % (Auto) 0.0 % Baso % (Auto) 0.2 % Reticulocyte % (Auto) (0.50-2.00) % Neut # (Auto) 14.22 H (1.40-6.50) K/uL Lymph # (Auto) 0.26 L (1.20-3.40) K/uL [place] # (Auto) 0.57 (0.11-0.59) K/uL Eos # (Auto) 0.00 (0.00-0.50) K/uL Baso # (Auto) 0.03 (0.00-0.20) K/uL Reticulocyte # (0.020-0.100) 10^6/uL Immature Gran # (Auto) 0.11 (0.01-0.20) K/uL PT Cancelled 14.6 H INR Cancelled 1.4 H APTT (21-31) Seconds PTT Ratio ABG pH (7.35-7.45) ABG pCO2 (35-46) mmHg ABG pO2 (80-95) mmHg ABG HCO3 (19-24) mmol/L ABG O2 Saturation (90-95) % ABG Base Excess (-9-1.8) mEq/L Fabian Test (Pos) Oxygen Given POC Sodium 132 L (135-144) mmol/L Sodium 132 L (136-145) mmol/L POC Potassium 6.2 H* (3.3-5.0) mmol/L Potassium 6.5 H* (3.5-5.1) mmol/L POC Chloride 108 (101-112) mmol/L Chloride 105 (98-107) mmol/L Carbon Dioxide 17 L (21-32) mmol/L POC Total CO2 17 L (24-31) mmol/L Anion Gap 10 (3-11) POC Anion Gap 15.0 L (16-25) mmol/L POC BUN 88 H (7-18) mg/dl BUN 92 H (6-23) mg/dl Creatinine 1.83 H (0.6-1.4) mg/dl POC Creatinine 1.8 H (0.6-1.3) mg/dl Est Cr Clr Drug Dosing Not Reportable Est GFR ( Amer) 39.5 ml/min Est GFR (Non-Af Amer) 34.1 ml/min BUN/Creatinine Ratio 50.3 H (10-20) Glucose 83 (70-99(Fasting)) mg/dl POC Glucose (70-99) mg/dl POC Glucose (other) 84 (70-99) mg/dl Lactate (0.4-2.0) mmol/L Uric Acid 7.0 (2.6-7.2) mg/dl Calcium 9.5 (8.6-10.3) mg/dl POC Ioniz Calcium Sofiya 1.24 (1.12-1.32) mmol/l Phosphorus 3.5 (2.5-4.9) mg/dl Magnesium 2.3 (1.7-2.4) mg/dl Iron 51 (35-175) mcg/dl Transferrin 214 (200-360) mg/dl Ferritin 393.2 H (8-388) ng/ml Total Bilirubin 2.1 H (0.2-1.0) mg/dl AST 26 (13-39) U/L ALT 17 (7-52) U/L Alkaline Phosphatase 153 H (34-104) U/L Ammonia (18-72) umol/L Total Creatine Kinase 135 (30-223) U/L Troponin I High Sens 82.5 H* (0-20) pg/ml Total Protein 7.5 (6.0-8.3) gm/dl Albumin 3.8 (3.4-5.0) gm/dl Globulin 3.7 (2.5-4.0) gm/dl Albumin/Globulin Ratio 1.0 (0.9-2) Vitamin B12 473 (180-914) pg/ml Folate 12.06 (>5.38) ng/ml Procalcitonin (0-0.5) ng/ml TSH 6.200 H (0.300-4.500) uIu/ml Free T4 1.40 (0.61-1.60) ng/dl Random Cortisol mcg/dl Urine Color Urine Appearance (Clear) Urine pH (4.5-7.5) Ur Specific [place] (1.000-1.030) Urine Protein (Negative) Urine Glucose (UA) (Negative) Urine Ketones (Negative) Urine Blood (Negative) Urine Nitrite (Negative) Urine Bilirubin (Negative) Urine Urobilinogen (Negative) Ur Leukocyte Esterase (Negative) Urine WBC (Auto) (0-5) /hpf Urine RBC (Auto) (0-2) /hpf U Hyaline Cast (Auto) (0-2) /lpf U Epithel Cells (Auto) (0-2) /hpf Urine Bacteria (Auto) (None Seen) Anaplasma Smear See Comment Babesia Smear See Comment Lyme Disease Screen Negative (Negative) 08/02/23 08/02/23 08/02/23 Range/Units 13:55 15:22 16:06 WBC (4.8-10.8) K/ul RBC (4.70-6.10) M/uL Hgb (14.0-18.0) g/dl POC Hgb (14.0-18.0) g/dl Hct (42.0-52.0) % POC Hct (42-52) % MCV (80.0-100.0) fL MCH (25.0-34.0) pg MCHC (32.0-36.0) g/dL RDW Std Deviation (36.4-46.3) fL RDW Coeff of Mariel (11.5-14.5) % Plt Count (130-400) K/uL MPV (9.4-12.4) fL Immature Gran % (Auto) % Neut % (Auto) % Lymph % (Auto) % [place] % (Auto) % Eos % (Auto) % Baso % (Auto) % Reticulocyte % (Auto) (0.50-2.00) % Neut # (Auto) (1.40-6.50) K/uL Lymph # (Auto) (1.20-3.40) K/uL [place] # (Auto) (0.11-0.59) K/uL Eos # (Auto) (0.00-0.50) K/uL Baso # (Auto) (0.00-0.20) K/uL Reticulocyte # (0.020-0.100) 10^6/uL Immature Gran # (Auto) (0.01-0.20) K/uL PT INR APTT (21-31) Seconds PTT Ratio ABG pH 7.37 (7.35-7.45) ABG pCO2 27 L (35-46) mmHg ABG pO2 104 H (80-95) mmHg ABG HCO3 16 L (19-24) mmol/L ABG O2 Saturation 98.6 H (90-95) % ABG Base Excess -8.1 (-9-1.8) mEq/L Fabian Test Pos (Pos) Oxygen Given ROOM AIR POC Sodium (135-144) mmol/L Sodium (136-145) mmol/L POC Potassium (3.3-5.0) mmol/L Potassium (3.5-5.1) mmol/L POC Chloride (101-112) mmol/L Chloride (98-107) mmol/L Carbon Dioxide (21-32) mmol/L POC Total CO2 (24-31) mmol/L Anion Gap (3-11) POC Anion Gap (16-25) mmol/L POC BUN (7-18) mg/dl BUN (6-23) mg/dl Creatinine (0.6-1.4) mg/dl POC Creatinine (0.6-1.3) mg/dl Est Cr Clr Drug Dosing Est GFR ( Amer) ml/min Est GFR (Non-Af Amer) ml/min BUN/Creatinine Ratio (10-20) Glucose (70-99(Fasting)) mg/dl POC Glucose 199 H (70-99) mg/dl POC Glucose (other) (70-99) mg/dl Lactate (0.4-2.0) mmol/L Uric Acid (2.6-7.2) mg/dl Calcium (8.6-10.3) mg/dl POC Ioniz Calcium Sofiya (1.12-1.32) mmol/l Phosphorus (2.5-4.9) mg/dl Magnesium (1.7-2.4) mg/dl Iron (35-175) mcg/dl Transferrin (200-360) mg/dl Ferritin (8-388) ng/ml Total Bilirubin (0.2-1.0) mg/dl AST (13-39) U/L ALT (7-52) U/L Alkaline Phosphatase (34-104) U/L Ammonia (18-72) umol/L Total Creatine Kinase (30-223) U/L Troponin I High Sens (0-20) pg/ml Total Protein (6.0-8.3) gm/dl Albumin (3.4-5.0) gm/dl Globulin (2.5-4.0) gm/dl Albumin/Globulin Ratio (0.9-2) Vitamin B12 (180-914) pg/ml Folate (>5.38) ng/ml Procalcitonin (0-0.5) ng/ml TSH (0.300-4.500) uIu/ml Free T4 (0.61-1.60) ng/dl Random Cortisol mcg/dl Urine Color Yellow Urine Appearance Turbid A (Clear) Urine pH 5.0 (4.5-7.5) Ur Specific [place] 1.015 (1.000-1.030) Urine Protein Trace H (Negative) Urine Glucose (UA) Negative (Negative) Urine Ketones Negative (Negative) Urine Blood 3+ H (Negative) Urine Nitrite Negative (Negative) Urine Bilirubin Negative (Negative) Urine Urobilinogen Negative (Negative) Ur Leukocyte Esterase 1+ H (Negative) Urine WBC (Auto) 0-5 (0-5) /hpf Urine RBC (Auto) >20 H (0-2) /hpf U Hyaline Cast (Auto) 0-2 (0-2) /lpf U Epithel Cells (Auto) 0-2 (0-2) /hpf Urine Bacteria (Auto) None Seen (None Seen) Anaplasma Smear Babesia Smear Lyme Disease Screen (Negative) 08/02/23 08/02/23 Range/Units 16:09 16:30 WBC (4.8-10.8) K/ul RBC (4.70-6.10) M/uL Hgb (14.0-18.0) g/dl POC Hgb (14.0-18.0) g/dl Hct (42.0-52.0) % POC Hct (42-52) % MCV (80.0-100.0) fL MCH (25.0-34.0) pg MCHC (32.0-36.0) g/dL RDW Std Deviation (36.4-46.3) fL RDW Coeff of Mariel (11.5-14.5) % Plt Count (130-400) K/uL MPV (9.4-12.4) fL Immature Gran % (Auto) % Neut % (Auto) % Lymph % (Auto) % [place] % (Auto) % Eos % (Auto) % Baso % (Auto) % Reticulocyte % (Auto) 2.14 H (0.50-2.00) % Neut # (Auto) (1.40-6.50) K/uL Lymph # (Auto) (1.20-3.40) K/uL [place] # (Auto) (0.11-0.59) K/uL Eos # (Auto) (0.00-0.50) K/uL Baso # (Auto) (0.00-0.20) K/uL Reticulocyte # 0.060 (0.020-0.100) 10^6/uL Immature Gran # (Auto) (0.01-0.20) K/uL PT INR APTT 33 H (21-31) Seconds PTT Ratio 1.2 ABG pH (7.35-7.45) ABG pCO2 (35-46) mmHg ABG pO2 (80-95) mmHg ABG HCO3 (19-24) mmol/L ABG O2 Saturation (90-95) % ABG Base Excess (-9-1.8) mEq/L Fabian Test (Pos) Oxygen Given POC Sodium (135-144) mmol/L Sodium 134 L (136-145) mmol/L POC Potassium (3.3-5.0) mmol/L Potassium 5.7 H (3.5-5.1) mmol/L POC Chloride (101-112) mmol/L Chloride 107 (98-107) mmol/L Carbon Dioxide 18 L (21-32) mmol/L POC Total CO2 (24-31) mmol/L Anion Gap 9 (3-11) POC Anion Gap (16-25) mmol/L POC BUN (7-18) mg/dl BUN 85 H (6-23) mg/dl Creatinine 1.68 H (0.6-1.4) mg/dl POC Creatinine (0.6-1.3) mg/dl Est Cr Clr Drug Dosing 39.6 Est GFR ( Amer) 43.8 ml/min Est GFR (Non-Af Amer) 37.8 ml/min BUN/Creatinine Ratio 50.6 H (10-20) Glucose 55 L (70-99(Fasting)) mg/dl POC Glucose (70-99) mg/dl POC Glucose (other) (70-99) mg/dl Lactate 1.2 (0.4-2.0) mmol/L Uric Acid (2.6-7.2) mg/dl Calcium 9.5 (8.6-10.3) mg/dl POC Ioniz Calcium Sofiya (1.12-1.32) mmol/l Phosphorus (2.5-4.9) mg/dl Magnesium (1.7-2.4) mg/dl Iron (35-175) mcg/dl Transferrin (200-360) mg/dl Ferritin (8-388) ng/ml Total Bilirubin 2.2 H (0.2-1.0) mg/dl AST 24 (13-39) U/L ALT 17 (7-52) U/L Alkaline Phosphatase 148 H (34-104) U/L Ammonia 11.0 L (18-72) umol/L Total Creatine Kinase (30-223) U/L Troponin I High Sens 91.5 H* (0-20) pg/ml Total Protein 7.3 (6.0-8.3) gm/dl Albumin 3.6 (3.4-5.0) gm/dl Globulin 3.7 (2.5-4.0) gm/dl Albumin/Globulin Ratio 1.0 (0.9-2) Vitamin B12 (180-914) pg/ml Folate (>5.38) ng/ml Procalcitonin 1.85 H (0-0.5) ng/ml TSH (0.300-4.500) uIu/ml Free T4 (0.61-1.60) ng/dl Random Cortisol 34.79 mcg/dl Urine Color Urine Appearance (Clear) Urine pH (4.5-7.5) Ur Specific [place] (1.000-1.030) Urine Protein (Negative) Urine Glucose (UA) (Negative) Urine Ketones (Negative) Urine Blood (Negative) Urine Nitrite (Negative) Urine Bilirubin (Negative) Urine Urobilinogen (Negative) Ur Leukocyte Esterase (Negative) Urine WBC (Auto) (0-5) /hpf Urine RBC (Auto) (0-2) /hpf U Hyaline Cast (Auto) (0-2) /lpf U Epithel Cells (Auto) (0-2) /hpf Urine Bacteria (Auto) (None Seen) Anaplasma Smear Babesia Smear Lyme Disease Screen (Negative) Administered Medications Phenylephrine HCl (Phenylephrine/Nss) 25 mg in 250 mls @ 24 mls/hr IV .[id number] [facility]; Protocol Stop: 09/01/23 13:44 Last Titration: 08/02/23 22:00 Dose: 1.2 mcg/kg/min, 57.6 mls/hr Documented By: LETICIA Co-signed By: MARTIN Titration: 08/02/23 21:45 Dose: 1.1 mcg/kg/min, 52.8 mls/hr Documented By: LETICIA Co-signed By: MARTIN Admin: 08/02/23 21:36 Dose: 1 mcg/kg/min, 48 mls/hr Documented By: LETICIA Co-signed By: ARR Titration: 08/02/23 21:36 Dose: Infused Documented By: LLP Co-signed By: ARR Titration: 08/02/23 21:22 Dose: 0.9 mcg/kg/min, 43.2 mls/hr Documented By: LLP Co-signed By: CLC Titration: 08/02/23 21:02 Dose: 0.8 mcg/kg/min, 38.4 mls/hr Documented By: LLP Co-signed By: ARR Titration: 08/02/23 19:24 Dose: 0.7 mcg/kg/min, 33.6 mls/hr Documented By: NMS Co-signed By: LLP Titration: 08/02/23 18:45 Dose: 0.7 mcg/kg/min, 33.6 mls/hr Documented By: NMS Co-signed By: LLP Titration: 08/02/23 16:47 Dose: 0.6 mcg/kg/min, 28.8 mls/hr Documented By: SNS Co-signed By: HAJAK Admin: 08/02/23 13:47 Dose: 0.5 mcg/kg/min, 24 mls/hr Documented By: SNS Co-signed By: MARIANA Miscellaneous (Icu Protocol For Hyperglycemia) 1 each N/A ACHS [facility] Stop: 08/04/23 20:59 Last Admin: 08/02/23 20:43 Dose: Not Given Documented By: LETICIA Sodium Zirconium Cyclosilicate (Sodium Zirconium Cyclosilicate 10 Gm Packet) 10 gm PO TID EDUARDO Stop: 08/03/23 14:01 Last Admin: 08/02/23 20:42 Dose: 10 gm Documented By: LETICIA Discontinued Medications Dextrose (Dextrose 50% 50 Ml Syringe) 100 ml IV NOW STA Stop: 08/02/23 13:14 Last Admin: 08/02/23 13:39 Dose: 100 ml Documented By: JERARDO Dextrose (Dextrose 50% 50 Ml Syringe) Confirm Administered Dose 50 ml IV .STK- MED ONE Stop: 08/02/23 17:02 Last Admin: 08/02/23 17:03 Dose: 50 ml Documented By: JERARDO Sodium Chloride (Nss) 500 mls @ 999 mls/hr IV .Q31M ONE Stop: 08/02/23 12:26 Last Infusion: 08/02/23 12:31 Dose: Infused Documented By: Admin: 08/02/23 11:56 Dose: 999 mls/hr Documented By: JERARDO Acetaminophen (Ofirmev) 1,000 mg in 100 mls @ 400 mls/hr IV NOW STA Stop: 08/02/23 12:18 Last Infusion: 08/02/23 12:58 Dose: Infused Documented By: Admin: 08/02/23 12:29 Dose: 400 mls/hr Documented By: JERARDO Sodium Chloride (Nss) 500 mls @ 999 mls/hr IV .Q31M ONE Stop: 08/02/23 13:43 Last Infusion: 08/02/23 13:45 Dose: Infused Documented By: Admin: 08/02/23 13:13 Dose: 999 mls/hr Documented By: JERARDO Insulin Human Regular 10 units (/ Syringe) 9.9 mls @ 3 mls/sec IV ONE STA Stop: 08/02/23 13:14 Last Admin: 08/02/23 13:39 Dose: 3 mls/sec Documented By: JERARDO Co-signed By: JOHN Calcium Gluconate () 1,000 mg in 60 mls @ 240 mls/hr IV Q15M EDUARDO Stop: 08/02/23 13:59 Last Infusion: 08/02/23 14:45 Dose: Infused Documented By: Admin: 08/02/23 14:23 Dose: 240 mls/hr Documented By: Infusion: 08/02/23 13:57 Dose: Infused Documented By: Admin: 08/02/23 13:42 Dose: 240 mls/hr Documented By: JERARDO Sodium Chloride (Nss) 500 mls @ 999 mls/hr IV .Q31M ONE Stop: 08/02/23 14:05 Last Infusion: 08/02/23 14:02 Dose: Infused Documented By: Admin: 08/02/23 13:35 Dose: 999 mls/hr Documented By: JERARDO Piperacillin Sod/Tazobactam Sod (Zosyn) 4.5 gm in 100 mls @ 200 mls/hr IV NOW ONE Stop: 08/02/23 15:51 Last Admin: 08/02/23 16:35 Dose: Not Given Documented By: MARIANA Vancomycin HCl 2,000 mg/ (Sodium Chloride) 540 mls @ 200 mls/hr IV NOW ONE Stop: 08/02/23 19:11 Last Admin: 08/02/23 17:06 Dose: 200 mls/hr Documented By: JERARDO Meropenem 500 mg/ Syringe 10 mls @ 2 mls/min IV NOW ONE; Protocol Stop: 08/02/23 16:34 Last Admin: 08/02/23 17:05 Dose: 2 mls/min Documented By: JERARDO Miscellaneous (Stat Iv Infusion Titration Per Protocol) 1 each N/A NOW STA Stop: 08/02/23 13:36 Last Admin: 08/02/23 20:43 Dose: Not Given Documented By: LLP Sodium Zirconium Cyclosilicate (Sodium Zirconium Cyclosilicate 10 Gm Packet) 10 gm PO NOW STA Stop: 08/02/23 15:24 Last Admin: 08/02/23 16:13 Dose: 10 gm Documented By: JERARDO Imaging Data Radiologist's Impression: Chest X-Ray 08/02/23 11:55 XR chest 1V portable CLINICAL HISTORY: weakness COMPARISON STUDY: Chest radiograph March 18, 2023. FINDINGS: There is no pneumothorax or pleural effusion. Cardiomegaly is unchanged. A left subclavian pacer is in place. There is no radiographic evidence for pulmonary edema. There is no consolidation. A mildly displaced fracture of the anterior right sixth rib is new since prior chest radiograph of March 18, 2023. IMPRESSION: 1. Stable cardiomegaly. No evidence for pulmonary edema. 2. Mildly displaced fracture of the anterior right sixth rib. The appearance favors a subacute fracture. No pneumothorax. ACT 112: Negative or not required by law. Electronically signed by: Joshua Piña M.D. 08/02/2023 12:50 PM Abdomen/Pelvis CT 08/02/23 12:[address] WITHOUT CONTRAST CT DOSE: 2687.54 mGy.cm HISTORY: weakness, renal failure TECHNIQUE: Multiaxial CT images of the abdomen and pelvis were performed without contrast. A dose lowering technique was utilized adhering to the principles of ALARA. COMPARISON STUDY: Abdomen and pelvis CT 03/10/2021. FINDINGS: The lung bases will be reported on the same day chest CT. Bibasilar linear densities favor subsegmental atelectasis. There are trace bilateral pleural effusions. The heart remains enlarged. Pacemaker wires are noted. No pneumoperitoneum. No pneumatosis. Slightly displaced distal sacral fracture which is likely subacute. There is a mild to moderate superior endplate compression fracture at T12 which appears subacute. Multiple bilateral rib fractures most pronounced on the right which also appear to represent healing/subacute fractures. No definite acute fractures identified. Diffuse body wall edema. The gallbladder surgically absent. The unenhanced liver, pancreas, spleen, and adrenal glands unremarkable. Bilateral renal cysts again noted. The dominant 7.5 cm cyst within the left upper pole demonstrates mural calcification. There is a punctate stone within the lower pole the left kidney. No hydronephrosis. Decreased attenuation within the blood pool suggesting underlying anemia. No retroperitoneal lymphadenopathy. Normal caliber abdominal aorta. No pelvic lymphadenopathy. There is a large amount of ascites which has progressed. Normal bladder. The prostate gland remains enlarged. Suboptimal evaluation for bowel pathology due to the lack of intravenous and oral contrast. However, there is no definite bowel wall thickening or obstruction. Colonic diverticulosis. No evidence for acute diverticulitis. Visualized appendix is unremarkable. IMPRESSION: 1. Interval progression of the fluid overload. This includes a large amount of ascites which has progressed. 2. No definite bowel wall thickening or obstruction. 3. Left-sided nephrolithiasis. No ureteral stones. No hydronephrosis. 4. Multiple subacute/healing fractures as described above. No acute fractures. 5. Additional findings as described above. ACT 112: Negative or not required by law. Electronically signed by: Caleb Hogan M.D. 08/02/2023 2:[address] 08/02/23 12:34 CT chest diagnostic wo con CLINICAL HISTORY: weakness, renal failure TECHNIQUE: Multidetector row helical CT of the chest was performed. Coronal and sagittal reformations were obtained. Automated dose lowering techniques and/or adjustment according to patient size were utilized for this exam. Comparison: Comparison is made to chest radiograph 08/02/2023 FINDINGS: Lungs and pleura: Atelectasis and mild interlobular septal thickening are seen in the dependent portions of the lungs. Heart and pericardium: There is cardiomegaly without evidence of pericardial effusion. Vessels: Pulmonary trunk measures 37 mm. Gas is seen in the subclavian vein, external jugular vein, and pulmonary trunk, likely due to intravenous injection. Mediastinum and idalia: Subcentimeter lymph nodes are seen. Chest wall and lower neck: Unremarkable. Abdomen: For findings below the diaphragm, please refer to CT of the abdomen dated the same. Bones: Degenerative changes in the thoracic spine. Subacute appearing fracture of the lateral right sixth, seventh, and eighth ribs. IMPRESSION: 1. Cardiomegaly with possible moderate pulmonary edema. 2. Subacute right rib fractures. ACT 112: Negative or not required by law. Electronically signed by: Nino Ray M.D. 08/02/2023 2:[address] 08/02/23 12:34 CT OF THE HEAD WITHOUT CONTRAST CLINICAL HISTORY: Weakness. COMPARISON STUDY: Head CT March 18, 2023. TECHNIQUE: Helical axial images of the head were obtained without IV contrast. Automated exposure control was utilized for the study. A dose lowering technique was utilized adhering to the principles of ALARA. FINDINGS: No acute intracranial hemorrhage, midline shift or mass effect is present. The ventricular system is unremarkable. The basal cisterns are patent. No extra-axial collections are present. There are no findings to suggest acute dural sinus thrombosis or acute territorial infarct. The appearance of the brain is unchanged. Multiple sites of venous gas are noted. IMPRESSION: 1. No acute intracranial findings. 2. Multifocal venous gas, likely related to IV insertion. ACT 112: Negative or not required by law. Electronically signed by: Joshua Piña M.D. 08/02/2023 2:35 PM Discharge Plan Visit Data Chief Complaint: Back Injury/Pain Stated Complaint: LOWER BACK PAIN ED Provider: Geovanni Hdz Discharge Problem: Sepsis, Acute renal failure, Cardiomyopathy, Cardiac amyloidosis, Hyperkalemia, Elevated troponin, Hypotension Patient Disposition: Admitted As Inpatient Discharge Instructions Interventions: ED Discharge Assessment Last Done: 08/02/23 18:52 Discharge Problem: Sepsis Qualifiers: Sepsis type: sepsis due to unspecified organism Sepsis acute organ dysfunction status: with acute organ dysfunction Severe sepsis acute organ dysfunction type: acute renal failure Acute renal failure type: unspecified Severe sepsis shock status: with septic shock Qualified Code(s): A41.9 - Sepsis, unspecified organism Acute renal failure Qualifiers: Acute renal failure type: unspecified Qualified Code(s): N17.9 - Acute kidney failure, unspecified Cardiomyopathy Qualifiers: Cardiomyopathy type: unspecified Qualified Code(s): I42.9 - Cardiomyopathy, unspecified Hypotension Qualifiers: Hypotension type: unspecified hypotension type Qualified Code(s): I95.9 - Hypotension, unspecified
[2023-08-02 12:20] LABS: Hematocrit (blood only) 27.9 % (42.0-52.0); Hemoglobin 9.3 g/dl (14.0-18.0); Mean Corpuscular Hemoglobin 33.5 pg (25.0-34.0); Mean Corpuscular Hgb Conc 33.3 g/dL (32.0-36.0); Mean Corpuscular Volume 100.4 fL (80.0-100.0); Mean Platelet Volume 9.8 fL (9.4-12.4); Platelet Count 231 K/uL (130-400); RDW Coefficient of Variation 14.6 % (11.5-14.5); RDW Standard Deviation 54.3 fL (36.4-46.3); Red Blood Count 2.78 M/uL (4.70-6.10); White Blood Count 15.19 K/ul (4.8-10.8)
[2023-08-02] MEDS: ACETAMINOPHEN 1,000 MG/100 ML VIAL IV STA (12:29)
[2023-08-02 12:39] LABS: iSTAT Creatinine 1.8 mg/dl (0.6-1.3); iSTAT Hemoglobin 9.9 g/dl (14.0-18.0); iSTAT Ionized Calcium 1.24 mmol/l (1.12-1.32); iSTAT Potassium 6.2 mmol/L (3.3-5.0)
[2023-08-02 12:44] LABS: Basophils # (auto) 0.03 K/uL (0.00-0.20); Basophils % (auto) 0.2 %; Immature Granulocytes # (auto) 0.11 K/uL (0.01-0.20); Immature Granulocytes % (auto) 0.7 %; Lymphocytes # (auto) 0.26 K/uL (1.20-3.40); Lymphocytes % (auto) 1.7 %; Monocytes # (auto) 0.57 K/uL (0.11-0.59); Monocytes % (auto) 3.8 %; Neutrophils # (auto) 14.22 K/uL (1.40-6.50); Neutrophils % (auto) 93.6 %
[2023-08-02 12:49] LABS: Albumin Level 3.8 gm/dl (3.4-5.0); Anion Gap 10 (3-11); Bilirubin,Total 2.1 mg/dl (0.2-1.0); Calcium 9.5 mg/dl (8.6-10.3); Carbon Dioxide 17 mmol/L (21-32); Chloride 105 mmol/L (98-107); Magnesium 2.3 mg/dl (1.7-2.4); Sodium 132 mmol/L (136-145)
[2023-08-02 12:50] LABS: Potassium 6.5 mmol/L (3.5-5.1)
--- NOTE | 2023-08-02 12:51 | XRay Report ---
XR chest 1V portable CLINICAL HISTORY: weakness COMPARISON STUDY: Chest radiograph March 18, 2023. FINDINGS: There is no pneumothorax or pleural effusion. Cardiomegaly is unchanged. A left subclavian pacer is in place. There is no radiographic evidence for pulmonary edema. There is no consolidation. A mildly displaced fracture of the anterior right sixth rib is new since prior chest radiograph of 2022. IMPRESSION: 1. Stable cardiomegaly. No evidence for pulmonary edema. 2. Mildly displaced fracture of the anterior right sixth rib. The appearance favors a subacute fractu re. No pneumothorax. ACT 112: Negative or not required by law. Electronically signed by: Joshua Piña M.D. 08/02/2023 12:50 PM
[2023-08-02 12:55] LABS: Alanine Aminotransferase 17 U/L (7-52); Alkaline Phosphatase 153 U/L (34-104); Aspartate Aminotransferase 26 U/L (13-39); BUN Creatinine Ratio 50.3 (10-20); Blood Urea Nitrogen 92 mg/dl (6-23); Creatine Kinase 135 U/L (30-223); Est GFR (African American) 39.5 ml/min; Est GFR (Non-African American) 34.1 ml/min; Globulin 3.7 gm/dl (2.5-4.0); Glucose 83 mg/dl (70-99(Fasting)); Phosphorus 3.5 mg/dl (2.5-4.9); Total Protein 7.5 gm/dl (6.0-8.3)
[2023-08-02 13:31] LABS: INR 1.4 (0.9-1.1); Prothrombin Time 14.6 Seconds (9.0-12.0)
[2023-08-02] MEDS: INSULIN HUMAN REGULAR PER UNIT 10 UNITS in SYRINGE 9.9 ML IV STA (13:39)
[2023-08-02] MEDS: DEXTROSE 50% 50 ML SYRINGE IV STA (13:39)
[2023-08-02] MEDS: CALCIUM GLUCONATE 1,000 MG/60 ML BAG IV SCH (13:42)
[2023-08-02] MEDS: PHENYLEPHRINE/NSS 25 MG/250 ML BAG IV SCH (13:47)
[2023-08-02 14:13] LABS: Folate (Folic Acid),Ser orPlas 12.06 ng/ml (>5.38)
[2023-08-02 14:29] LABS: Troponin I High Sensitivity 82.5 pg/ml (0-20)
[2023-08-02 14:31] LABS: Ferritin 393.2 ng/ml (8-388)
--- NOTE | 2023-08-02 14:36 | CT Scan Report ---
CT OF THE HEAD WITHOUT CONTRAST CLINICAL HISTORY: Weakness. COMPARISON STUDY: Head CT March 18, 2023. TECHNIQUE: Helical axial images of the head were obtained without IV contrast. Automated exposure con trol was utilized for the study. A dose lowering technique was utilized adhering to the principles o f ALARA. FINDINGS: No acute intracranial hemorrhage, midline shift or mass effect is present. The ventricular system is unremarkable. The basal cisterns are patent. No extra-axial collections are present. There are no findings to suggest acute dural sinus thrombosis or acute territorial infarct. The appearance of the brain is unchanged. Multiple sites of venous gas are noted. IMPRESSION: 1. No acute intracranial findings. 2. Multifocal venous gas, likely related to IV insertion. ACT 112: Negative or not required by law. Electronically signed by: Joshua Piña M.D. 08/02/2023 2:35 PM
--- NOTE | 2023-08-02 14:51 | CT Scan Report ---
ABDOMEN AND PELVIS CT WITHOUT CONTRAST CT DOSE: 2687.54 mGy.cm HISTORY: weakness, renal failure TECHNIQUE: Multiaxial CT images of the abdomen and pelvis were performed without contrast. A dose lo wering technique was utilized adhering to the principles of ALARA. COMPARISON STUDY: Abdomen and pelvis CT 03/10/2021. FINDINGS: The lung bases will be reported on the same day chest CT. Bibasilar linear densities favor subsegmental atelectasis. There are trace bilateral pleural effusions. The heart remains enlarged. Pa cemaker wires are noted. No pneumoperitoneum. No pneumatosis. Slightly displaced distal sacral fractu re which is likely subacute. There is a mild to moderate superior endplate compression fracture at T1 2 which appears subacute. Multiple bilateral rib fractures most pronounced on the right which also ap pear to represent healing/subacute fractures. No definite acute fractures identified. Diffuse body wa ll edema. The gallbladder surgically absent. The unenhanced liver, pancreas, spleen, and adrenal glan ds unremarkable. Bilateral renal cysts again noted. The dominant 7.5 cm cyst within the left upper po le demonstrates mural calcification. There is a punctate stone within the lower pole the left kidney. No hydronephrosis. Decreased attenuation within the blood pool suggesting underlying anemia. No retr operitoneal lymphadenopathy. Normal caliber abdominal aorta. No pelvic lymphadenopathy. There is a la rge amount of ascites which has progressed. Normal bladder. The prostate gland remains enlarged. Subo ptimal evaluation for bowel pathology due to the lack of intravenous and oral contrast. However, ther e is no definite bowel wall thickening or obstruction. Colonic diverticulosis. No evidence for acute diverticulitis. Visualized appendix is unremarkable. IMPRESSION: 1. Interval progression of the fluid overload. This includes a large amount of ascites which has prog ressed. 2. No definite bowel wall thickening or obstruction. 3. Left-sided nephrolithiasis. No ureteral stones. No hydronephrosis. 4. Multiple subacute/healing fractures as described above. No acute fractures. 5. Additional findings as described above. ACT 112: Negative or not required by law. Electronically signed by: Caleb Hogan M.D. 08/02/2023 2:49 PM
--- NOTE | 2023-08-02 14:53 | CT Scan Report ---
CT chest diagnostic wo con CLINICAL HISTORY: weakness, renal failure TECHNIQUE: Multidetector row helical CT of the chest was performed. Coronal and sagittal reformations were obtained. Automated dose lowering techniques and/or adjustment according to patient size were u tilized for this exam. Comparison: Comparison is made to chest radiograph 08/02/2023 FINDINGS: Lungs and pleura: Atelectasis and mild interlobular septal thickening are seen in the dependent porti ons of the lungs. Heart and pericardium: There is cardiomegaly without evidence of pericardial effusion. Vessels: Pulmonary trunk measures 37 mm. Gas is seen in the subclavian vein, external jugular vein, a nd pulmonary trunk, likely due to intravenous injection. Mediastinum and idalia: Subcentimeter lymph nodes are seen. Chest wall and lower neck: Unremarkable. Abdomen: For findings below the diaphragm, please refer to CT of the abdomen dated the same. Bones: Degenerative changes in the thoracic spine. Subacute appearing fracture of the lateral right s ixth, seventh, and eighth ribs. IMPRESSION: 1. Cardiomegaly with possible moderate pulmonary edema. 2. Subacute right rib fractures. ACT 112: Negative or not required by law. Electronically signed by: Nino Ray M.D. 08/02/2023 2:51 PM
--- NOTE | 2023-08-02 15:43 | History & Physical Report ---
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 Has had progression of his abdominal swelling and legs for at least the last week. Repeat echo shows no change in EF Denies cough, abdominal pain, urinary symptoms. CTchest with moderate pulmonary edema CTA/P is with large volume ascites, patient does not have tenderness/rebound/guarding. Patient has had an chronic low midline thoracic/lumbar pain, however he reports that this is worse than usual and is what brought him into the ER and does have midline pain to palpation T10-L3 approximately. No fluctuance or overlying warmth/erythema. MRI ordered for epidural abscess rule out Patient is with leukocytosis with very high NLR, hypotensive, FILI and w/ ill appearance on vasopressin. Blood cultures ordered and recommend empiric broad- spectrum antibiotics while further workup is completed. Merrem/vancomycin selected for broad coverage, Merrem preferred over cefepime for ascitic fluid penetration Procalcitonin elevated 1.85, cortisol pending fluids deferred due to obvious volume overload, pulmonary edema, and cardiac amyloidosis with reduced EF of 45%. Blood pressure not yet stable enough to tolerate diuresis, is beginning to improve on phenylephrine ABG pending UA with leukocyte Estrace and blood, UCx pending. ABG with compensated metabolic alkalosis No transaminitis to suggest Anaplasma. Lyme disease negative lactate is normal (2) Cardiac amyloidosis: Plan: Cardiac amyloidosis Bedside echo with stable appearing EF, formal echo pending. Did discuss echo with cardiology EF approximately 40-45%, similar to March, formal report pending at time of admission Dual-chamber pacemaker in place for heart block EKG is ventricular paced rhythm. Troponin elevated 82.5, repeat troponin ordered on admission. Discussed with cardiology. While patient of cardiac amyloid EF appears stable and given decompensation, sharply elevated white count from his normal baseline, hypotension and poor appearance agree with continuing broad workup and sepsis/infectious evaluation Tafamidis continued Cardiology is consulted. Initially contacted by the ER and reached out to hospital service shortly before admission consultation to note that while blood pressure is improved on phenylephrine patient did appear hypervolemic without significant LV change on his echo and wanted to make sure alternative etiologies including septic shock were included. Appreciate recommendations. (3) Heart failure with mid-range ejection fraction: Plan: as noted (4) Atrial fibrillation, permanent: Plan: History of A-fib/a flutter, history of heart block s/p pacer Anticoagulation continued Metoprolol continued 08/02, hold for hypotension Paced rhythm on EKG Troponin is elevated at 82/91, trended. Likely demand. No chest pain. Presentation is not consistent with ACS. Clinically without chest pain/chest pressure preceding admission (5) Acute renal failure: Plan: FILI Creatinine elevated, patient was hyperkalemic. Nephrology consulted. Patient has obvious volume overload with pulmonary edema and lower extremity edema; blood pressure is not stable enough to diuresis at time of admitting assessment. Phenylephrine ordered Reports compliance with his diuretics at home.. Baseline creatinine less than 1. Creatinine increased to 1.83. Obvious volume overload is present. Nephrology consulted Ascites Patient attributes this to his cardiac/amyloid disease. Denies history of liver disease. He does not have an elevated AST/ALT or acutely elevated bilirubin. Ammonia is pending. Patient does report a history of wine use socially and intermittently, no liver changes on CT Discussed paracentesis with ICU. Reached out to IR, unfortunately they are not available at time of admitting consultation (6) Hyperkalemia: Plan: Hyperkalemia - w/ sepsis, FILI, and impaired perfusion -Insulin was ordered by the ER. Calcium gluconate redosed on admission. Repeat BMP ordered every 4 hours x 2, initial repeat downtrending at 5.7 Redosed calcium everyevery 2 hours as needed, nephrology following. Ceekelma ordered 3 times daily. EKG paced Spironolactone/losartan discontinued both due to FILI and hyperkalemia Hypoglycemia 83/55/52 following administration of insulin for hyperkalemia in the ER with additional poor p.o. intake, will also reduced clearance with renal dysfunction. D50 ordered. Defer D5 drip if possible due to volume overload (7) Central sleep apnea: Plan: CPAP nightly (8) Ascites: Plan: Unclear etiology. No history of liver disease and liver is normal on admission. No transaminitis History of amyloidosis as noted Pending diagnostic and therapeutic paracentesis Abdomen is not tense/tender/warm or with rebound suggestive of SBP, but given unclear source of infection and severe illness patient is covered with empiric antibiotics to include this. Meropenem is included in antibiotics as noted, this will have adequate ascitic fluid penetrance. Plan DVT prophylaxis: Anticoagulated Disposition: ICU History of Present Illness Primary Care Provider: Quentin Sawant MD Patient seen at the bedside. He reports that he has had progressive abdominal and lower extremity swelling. Reports he does have a history of cardiac amyloidosis and suspected fluid was related to this. He has not had fever, chills, sweats but has had 10 swelling in his abdomen and also has midline somet imes more the left but on exam midline low thoracic/high lumbar back pain. He has not had fever/chills but feels poorly. He has not had any dysuria. No cough or shortness of breath. No chest pain or pressure. Did take morning medications. He is on tafamidis for his amyloidosis. He also take spironolactone, torsemide, and apixaban. He reports his primary symptom that brought him to the hospital is actually back pain which has been intermittent for many decades, but does seem to be much worse than normal in the last few days. He endorses falls in the last week and difficulty with balance. Bedside ultrasound obtained due to his lower extremity tense pitting edema was with concern for pericardial effusion, this did not show evidence of tamponade. Reports he has still been urinating and that this has been without pain or change in frequencyWhile patient is a good historian of many parts of his history and does seem to retain history also did not recognize several providers that have previously known and appears to have a waxing and waning delirium/altered mental status at time of assessment. Medical History: Reviewed Medications: Reviewed Surgical History: Reviewed Family history: Reviewed Allergies: Reviewed Social History: Denies tobacco use, endorses intermittent social alcohol use with no recent use and no history of Code Status: Full code Allergies Allergy/AdvReac Type Severity Reaction Status Date / Time No Known Allergies Allergy Verified 06/05/23 13:38 Home Medications Medication Instructions Recorded Confirmed Type metoprolol succinate 25 mg 12.5 mg (1/2 x 25 mg) PO DAILY #45 09/07/22 08/02/23 Rx tablet,extended release 24 hr tabs losartan 25 mg tablet 25 mg PO DAILY #90 tabs 07/04/23 05/08/24 Rx tafamidis meglumine 20 mg capsule 20 mg PO DAILY 02/24/23 08/02/23 History (Vyndaqel) torsemide 10 mg tablet 50 mg PO UD 06/05/23 08/02/23 History acetaminophen 325 mg capsule 325 mg PO QID PRN Pain 07/14/23 08/02/23 History (Tylenol) methocarbamol 500 mg tablet 500 mg PO TID #90 tabs 07/14/23 08/02/23 Rx apixaban 5 mg tablet (Eliquis) 5 mg PO BID #180 tabs 07/20/23 08/02/23 Rx gabapentin 300 mg capsule 300 mg PO BID #60 caps 07/24/23 08/02/23 Rx spironolactone 25 mg tablet 25 mg PO UD 08/02/23 08/02/23 History Past Med/Surg History Medical History Atrial fibrillation, permanent 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 Nuenz 03-11-2021 Social History Smoking Status: Never smoker Hx Alcohol Use: Yes Alcohol type: wine Hx Substance Use: No Preferred Language: Ukrainian Communication Ability: Effective Visual Impairment: No Limitations Liquor Clerk Required: No Beliefs That Will Affect Care: None marital status: Current Living Situation: Spouse How many Children do You have: 2 Feels Safe at Home: Yes Safety Concerns: Feels Safe At This Time Assistive Devices: Cane and Glasses Physical Exam Physical Exam: General: Oriented to name, place, and year but intermittently circumferential and forgetfulness concerning for some metabolic encephalopathy HEENT: Atraumatic, normocephalic. Vision and hearing grossly intact Pulm: CTAB A&P. -wheezes, -rales, -rhonchi. Symmetrical chest rise. No increased work of breathing. No respiratory distress. Cardiac: Systolic murmur present, regular rate and rhythm. Radial pulses intact and symmetrical. Abdominal: Distended, nontender and is not warm or erythematous. Fluid wave is present Extremities: Tense pitting edema throughout the lower extremities Back: Midline spinal tenderness from approximately T10-L3, no paraspinal ten derness to palpation Results & Data Results & Data Vital Signs (Past 12 Hours) Vital Signs Temp Pulse Resp BP BP Pulse Ox O2 Del Method 08/02/23 13:55 80/48 L 08/02/23 13:55 79 15 94 08/02/23 13:54 76/50 L 08/02/23 13:54 79 14 08/02/23 13:50 78/51 L 08/02/23 13:50 78/51 L 08/02/23 13:50 78 17 08/02/23 13:45 75 17 78 L 08/02/23 13:45 77/51 L 08/02/23 13:36 76 14 92 08/02/23 13:36 71/52 L 08/02/23 13:32 67/48 L 08/02/23 13:32 76 16 92 08/02/23 13:30 64/49 L 08/02/23 13:30 76 16 89 L 08/02/23 13:26 72/49 L 08/02/23 13:26 76 15 93 Room Air 08/02/23 13:17 74/46 L 96 Room Air 08/02/23 13:17 76 15 97 Room Air 08/02/23 13:13 18 74/46 L 96 Room Air 08/02/23 13:11 76 16 96 Room Air 08/02/23 13:11 73/45 L 08/02/23 13:04 72/48 L 08/02/23 13:04 77 17 82 L 08/02/23 13:00 72/51 L 08/02/23 13:00 77 16 82 L 08/02/23 12:45 77/45 L 08/02/23 12:45 76 20 08/02/23 12:43 67/48 L 08/02/23 12:43 67/48 L 08/02/23 12:43 76 15 08/02/23 12:34 76/47 L 08/02/23 12:34 76 17 08/02/23 12:31 71/51 L 08/02/23 12:31 77 17 08/02/23 12:30 77 16 08/02/23 12:16 85/54 L 08/02/23 12:16 85/54 L 08/02/23 12:16 77 16 08/02/23 12:01 84/56 L 08/02/23 12:01 76 21 08/02/23 12:00 76 22 08/02/23 11:55 77 16 96 Room Air 08/02/23 11:53 87/53 L 08/02/23 11:53 76 19 08/02/23 11:39 86/62 L 08/02/23 11:39 76 23 98 Room Air 08/02/23 11:35 77 20 96 Room Air 08/02/23 11:35 84/58 L 08/02/23 11:33 36.7 C 77 18 79/56 L 95 Room Air 08/02/23 11:30 92 H 15 96 Room Air 08/02/23 11:29 76 08/02/23 11:27 87 19 95 Room Air PG Care Time/CCT Total # of Minutes Spent Total Time Spent with Patient: Total time spent is greater than 50% in coordination of care (as documented) at patient's floor/unit and/or counseling patient: Coding Level of Care Code 18267 INT INP/OBS CARE 3/75MIN Diagnoses Shock R57.9 Cardiac amyloidosis E85.4; I43 Heart failure with mid-range ejection fraction I50.22 Atrial fibrillation, permanent I48.21 Acute renal failure N17.9 Hyperkalemia E87.5 Central sleep apnea G47.31 Ascites R18.8
--- NOTE | 2023-08-02 15:46 | Critical Care Consultation ---
Date of Consultation August 02, 2023 Assessment & Plan (1) Low back pain: (2) Septic shock: (3) Fluid overload: (4) Ascites: (5) Incontinence: Plan Impression: 78-year-old male with history of cardiac amyloid, atrial fibrillation, admitted with persistent back pain, leukocytosis, hypotension and concern for potential infection. He has multiple etiologies including SBP or epidural abscess given his complaints. He has received small amount of crystalloid (500 cc) but additional fluids are not indicated currently given his hypervolemic state. Recommendations: 1. Neurologic: The patient does demonstrate some mild confusion although he compensates relatively well. Imaging of the head demonstrated no acute abnormality. Will check ammonia level. Uremia could be contributing given his elevated BUN. Will follow clinically at this point in time. 2. Cardiovascular: History of cardiac amyloid. Per discussion with cardiology, EF appears preserved currently. Would avoid additional fluids at this point in time. Awaiting lactate and ABG. If these are elevated there will be trended over time. He has been initiated on Tristen-Synephrine which is appropriate at this point in time. Will continue peripheral in hopes that this is short-term however may require central access if he fails to clear. 3. Pulmonary: No current issues. History of sleep disordered breathing. He was ineffectively treated with CPAP and BiPAP in the past. May need supplemental oxygen at night. 4. ID: Given multiple etiologies for infection. Discussed with admitting hospitalist service. Will initially obtain paracentesis. Will also get MRI of the spine. If there is an epidural abscess he would likely need to be transferred to a tertiary facility. Continue Zosyn and vancomycin for now. 5. Renal: Significant azotemia. The patient attributes this to diuretics however his creatinine is also elevated. He is also hyperkalemic. Await blood gas for formal assessment of his acid-base status. Discussed with hospitalist and will pursue nephrology consultation. May need additional interventions to treat his hyperkalemia. 6. GI: Significant ascites of unclear etiology. The patient reports this has been present in the past. Unclear what evaluation has been conducted to determine the etiology. Await paracentesis to further characterize ascitic fluid. 7. Endocrine: Check random cortisol. Glycemic control per protocol. 8. Heme-onc: Leukocytosis, possibly secondary to infection. He does have mild anemia which is worse compared to his baseline. No evidence of active ongoing bleeding. No indication for transfusion currently. His INR is also elevated, possibly consistent with hepatic dysfunction. Patient is critically ill at this point in time with multiorgan system dysfunction. Significant possibility for clinical deterioration exists. Discussed with patient. He would like full resuscitative efforts incorporated in the event of clinical decline. A total of 50 minutes in critical care time was spent in evaluation management and coordination of care for this critically ill patient. History of Present Illness History of Present Illness Asked by cardiology to assist in evaluation management of this patient with hypotension, renal failure, and anasarca with ascites. History is obtained from discussion with the patient as well as discussion with cardiology. 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 Patient reports that she has had back pain going on for 50 years but apparently something was bad enough that it brought him to the emergency room today. He has had progressive gait instability and has been following with neurology. He had a fall a few months ago and was seen in the emergency room. Chest x-ray at that time did not demonstrate abnormalities however on his CT today he has subacute rib fractures. He apparently had loss of bowel continence in the emergency room today and has been persistently hypotensive with an elevated white blood cell count throughout his stay in the ER. He was just recently started on Tristen-Synephrine. Cardiology was consulted due to concern about potential pericardial effusion. Echo did not demonstrate tamponade physiology and the patient has significant anasarca with ascites so additional crystalloid was not recommended. Lactate was not checked. Blood gas was not checked. He did receive insulin. Nephrology has not been consulted. Zosyn was written for but no cultures were ordered. Allergies Allergy/AdvReac Type Severity Reaction Status Date / Time No Known Allergies Allergy Verified 06/05/23 13:38 Home Medications Medication Instructions Recorded Confirmed Type metoprolol succinate 25 mg 12.5 mg (1/2 x 25 mg) PO DAILY #45 09/07/22 08/02/23 Rx tablet,extended release 24 hr tabs losartan 25 mg tablet 25 mg PO DAILY #90 tabs 09/27/22 08/02/23 Rx tafamidis meglumine 20 mg capsule 20 mg PO DAILY 02/24/23 08/02/23 History (Vlurdesdasy) torsemide 10 mg tablet 50 mg PO UD 06/05/23 08/02/23 History acetaminophen 325 mg capsule 325 mg PO QID PRN Pain 07/14/23 08/02/23 History (Tylenol) methocarbamol 500 mg tablet 500 mg PO TID #90 tabs 07/14/23 08/02/23 Rx apixaban 5 mg tablet (Eliquis) 5 mg PO BID #180 tabs 07/20/23 08/02/23 Rx gabapentin 300 mg capsule 300 mg PO BID #60 caps 07/24/23 08/02/23 Rx spironolactone 25 mg tablet 25 mg PO UD 08/02/23 08/02/23 History Patient History Medical History Abnormal cholangiogram Cholecystitis, acute Hyperbilirubinemia Cholelithiasis Elevated troponin RUQ abdominal pain Heart block Pilonidal cyst Surgical History Hx laparoscopic cholecystectomy (03/11/21) Social History Smoking Status: Never smoker Hx Alcohol Use: Yes Alcohol type: wine Hx Substance Use: No Preferred Language: [place]i Communication Ability: Effective Visual Impairment: No Limitations Health Editor Required: No Beliefs That Will Affect Care: None marital status: Current Living Situation: Spouse How many Children do You have: 2 Feels Safe at Home: Yes Assistive Devices: Glasses Review of Systems Review of Systems: Please refer to admission H&P Physical Exam Constitutional: WD/WN, vitals as above + thin Elderly male. Slightly confused Neck: trachea midline, no thyromegaly Respiratory: normal respiratory effort, lungs clear to auscultation Cardiovascular: Rate/Rhythm: regular rate Heart Sounds: normal S1, normal S2 and + murmur Extremities: + edema Gastrointestinal (Abdomen): Inspection/Auscultation: + abdomen distended and + abdominal edema Percussion/Palpation: + ascites Musculoskeletal: Extremities: extremities normal to inspection Skin: Chronic venous stasis changes of the lower extremities Neurologic: Nonfocal exam Lymphatic: no cervical lymphadenopathy Results & Data Results & Data Vital Signs (Past 12 Hours) Vital Signs Temp Pulse Resp BP BP Pulse Ox O2 Del Method 08/02/23 13:55 80/48 L 08/02/23 13:55 79 15 94 08/02/23 13:54 76/50 L 08/02/23 13:54 79 14 08/02/23 13:50 78/51 L 08/02/23 13:50 78/51 L 08/02/23 13:50 78 17 08/02/23 13:45 75 17 78 L 08/02/23 13:45 77/51 L 08/02/23 13:36 76 14 92 08/02/23 13:36 71/52 L 08/02/23 13:32 67/48 L 08/02/23 13:32 76 16 92 08/02/23 13:30 64/49 L 08/02/23 13:30 76 16 89 L 08/02/23 13:26 72/49 L 08/02/23 13:26 76 15 93 Room Air 08/02/23 13:17 74/46 L 96 Room Air 08/02/23 13:17 76 15 97 Room Air 08/02/23 13:13 18 74/46 L 96 Room Air 08/02/23 13:11 76 16 96 Room Air 08/02/23 13:11 73/45 L 08/02/23 13:04 72/48 L 08/02/23 13:04 77 17 82 L 08/02/23 13:00 72/51 L 08/02/23 13:00 77 16 82 L 08/02/23 12:45 77/45 L 08/02/23 12:45 76 20 08/02/23 12:43 67/48 L 08/02/23 12:43 67/48 L 08/02/23 12:43 76 15 08/02/23 12:34 76/47 L 08/02/23 12:34 76 17 08/02/23 12:31 71/51 L 08/02/23 12:31 77 17 08/02/23 12:30 77 16 08/02/23 12:16 85/54 L 08/02/23 12:16 85/54 L 08/02/23 12:16 77 16 08/02/23 12:01 84/56 L 08/02/23 12:01 76 21 08/02/23 12:00 76 22 08/02/23 11:55 77 16 96 Room Air 08/02/23 11:53 87/53 L 08/02/23 11:53 76 19 08/02/23 11:39 86/62 L 08/02/23 11:39 76 23 98 Room Air 08/02/23 11:35 77 20 96 Room Air 08/02/23 11:35 84/58 L 08/02/23 11:33 36.7 C 77 18 79/56 L 95 Room Air 08/02/23 11:30 92 H 15 96 Room Air 08/02/23 11:29 76 08/02/23 11:27 87 19 95 Room Air Critical Care Results & Data Vital Signs (Past 12 Hours) Vital Signs Temp Pulse Resp BP BP Pulse Ox O2 Del Method 08/02/23 13:55 80/48 L 08/02/23 13:55 79 15 94 08/02/23 13:54 76/50 L 08/02/23 13:54 79 14 08/02/23 13:50 78/51 L 08/02/23 13:50 78/51 L 08/02/23 13:50 78 17 08/02/23 13:45 75 17 78 L 08/02/23 13:45 77/51 L 08/02/23 13:36 76 14 92 08/02/23 13:36 71/52 L 08/02/23 13:32 67/48 L 08/02/23 13:32 76 16 92 08/02/23 13:30 64/49 L 08/02/23 13:30 76 16 89 L 08/02/23 13:26 72/49 L 08/02/23 13:26 76 15 93 Room Air 08/02/23 13:17 74/46 L 96 Room Air 08/02/23 13:17 76 15 97 Room Air 08/02/23 13:13 18 74/46 L 96 Room Air 08/02/23 13:11 76 16 96 Room Air 08/02/23 13:11 73/45 L 08/02/23 13:04 72/48 L 08/02/23 13:04 77 17 82 L 08/02/23 13:00 72/51 L 08/02/23 13:00 77 16 82 L 08/02/23 12:45 77/45 L 08/02/23 12:45 76 20 08/02/23 12:43 67/48 L 08/02/23 12:43 67/48 L 08/02/23 12:43 76 15 08/02/23 12:34 76/47 L 08/02/23 12:34 76 17 08/02/23 12:31 71/51 L 08/02/23 12:31 77 17 08/02/23 12:30 77 16 08/02/23 12:16 85/54 L 08/02/23 12:16 85/54 L 08/02/23 12:16 77 16 08/02/23 12:01 84/56 L 08/02/23 12:01 76 21 08/02/23 12:00 76 22 08/02/23 11:55 77 16 96 Room Air 08/02/23 11:53 87/53 L 08/02/23 11:53 76 19 08/02/23 11:39 86/62 L 08/02/23 11:39 76 23 98 Room Air 08/02/23 11:35 77 20 96 Room Air 08/02/23 11:35 84/58 L 08/02/23 11:33 36.7 C 77 18 79/56 L 95 Room Air 08/02/23 11:30 92 H 15 96 Room Air 08/02/23 11:29 76 08/02/23 11:27 87 19 95 Room Air Lab & Micro Results (Past 24 Hours) RBC 2.78 M/uL (4.70-6.10) L 08/02/23 WBC 15.19 K/ul (4.8-10.8) H 08/02/23 Hgb 9.3 g/dl (14.0-18.0) L 08/02/23 Hct 27.9 % (42.0-52.0) L 08/02/23 MCV 100.4 fL (80.0-100.0) H 08/02/23 MCH 33.5 pg (25.0-34.0) 08/02/23 MCHC 33.3 g/dL (32.0-36.0) 08/02/23 RDW Standard Deviation 54.3 fL (36.4-46.3) H 08/02/23 RDW Coefficient of Variation 14.6 % (11.5-14.5) H 08/02/23 Plt Count 231 K/uL (130-400) 08/02/23 MPV 9.8 fL (9.4-12.4) 08/02/23 Neutrophils (%) (Auto) 93.6 % 08/02/23 Lymphocytes (%) (Auto) 1.7 % 08/02/23 Monocytes # (Auto) 0.57 K/uL (0.11-0.59) 08/02/23 Eosinophils # (Auto) 0.00 K/uL (0.00-0.50) 08/02/23 Immature Granulocyte % (Auto) 0.7 % 08/02/23 Neutrophils # (Auto) 14.22 K/uL (1.40-6.50) H 08/02/23 Lymphocytes # (Auto) 0.26 K/uL (1.20-3.40) L 08/02/23 Monocytes # (Auto) 0.57 K/uL (0.11-0.59) 08/02/23 Eosinophils # (Auto) 0.00 K/uL (0.00-0.50) 08/02/23 Basophils # (Auto) 0.03 K/uL (0.00-0.20) 08/02/23 Immature Granulocyte # (Auto) 0.11 K/uL (0.01-0.20) 4 Na 132 mmol/L (136-145) L 08/02/23 K 6.5 mmol/L (3.5-5.1) H* 08/02/23 Cl 105 mmol/L (98-107) 08/02/23 CO2 17 mmol/L (21-32) L 08/02/23 Anion Gap 10 (3-11) 08/02/23 BUN 92 mg/dl (6-23) H 08/02/23 Creatinine 1.83 mg/dl (0.6-1.4) H 08/02/23 Estimated GFR ( Amer) 39.5 ml/min 08/02/23 Estimated GFR (Non-Af Amer) 34.1 ml/min 08/02/23 BUN/Creatinine Ratio 50.3 (10-20) H 08/02/23 Glu 83 mg/dl (70-99(Fasting)) 08/02/23 Ca 9.5 mg/dl (8.6-10.3) 08/02/23 Phosphorus Level 3.5 mg/dl (2.5-4.9) 08/02/23 Total Bilirubin 2.1 mg/dl (0.2-1.0) H 08/02/23 AST 26 U/L (13-39) 08/02/23 ALT 17 U/L (7-52) 08/02/23 Alkaline Phosphatase 153 U/L (34-104) H 08/02/23 TP 7.5 gm/dl (6.0-8.3) 08/02/23 Albumin 3.8 gm/dl (3.4-5.0) 08/02/23 Globulin 3.7 gm/dl (2.5-4.0) 08/02/23 Albumin/Globulin Ratio 1.0 (0.9-2) 08/02/23 Mg 2.3 mg/dl (1.7-2.4) 08/02/23 11:30 Calcium Level 9.5 mg/dl (8.6-10.3) 08/02/23 11:30 Prothromb Time International Ratio 1.4 (0.9-1.1) H 08/02/23 13 :02 Diagnostic Findings (Past 24 Hours) Chest X-Ray 08/02/23 11:55 XR chest 1V portable CLINICAL HISTORY: weakness COMPARISON STUDY: Chest radiograph March 18, 2023. FINDINGS: There is no pneumothorax or pleural effusion. Cardiomegaly is unchanged. A left subclavian pacer is in place. There is no radiographic evidence for pulmonary edema. There is no consolidation. A mildly displaced fracture of the anterior right sixth rib is new since prior chest radiograph of March 18, 2023. IMPRESSION: 1. Stable cardiomegaly. No evidence for pulmonary edema. 2. Mildly displaced fracture of the anterior right sixth rib. The appearance favors a subacute fracture. No pneumothorax. ACT 112: Negative or not required by law. Electronically signed by: Joshua Piña M.D. 08/02/2023 12:50 PM Abdomen/Pelvis CT 08/02/23 12:[address] WITHOUT CONTRAST CT DOSE: 2687.54 mGy.cm HISTORY: weakness, renal failure TECHNIQUE: Multiaxial CT images of the abdomen and pelvis were performed without contrast. A dose lowering technique was utilized adhering to the principles of ALARA. COMPARISON STUDY: Abdomen and pelvis CT 03/10/2021. FINDINGS: The lung bases will be reported on the same day chest CT. Bibasilar linear densities favor subsegmental atelectasis. There are trace bilateral pleural effusions. The heart remains enlarged. Pacemaker wires are noted. No pneumoperitoneum. No pneumatosis. Slightly displaced distal sacral fracture which is likely subacute. There is a mild to moderate superior endplate compression fracture at T12 which appears subacute. Multiple bilateral rib fractures most pronounced on the right which also appear to represent healing/subacute fractures. No definite acute fractures identified. Diffuse body wall edema. The gallbladder surgically absent. The unenhanced liver, pancreas, spleen, and adrenal glands unremarkable. Bilateral renal cysts again noted. The dominant 7.5 cm cyst within the left upper pole demonstrates mural calcification . There is a punctate stone within the lower pole the left kidney. No hydronephrosis. Decreased attenuation within the blood pool suggesting underlying anemia. No retroperitoneal lymphadenopathy. Normal caliber abdominal aorta. No pelvic lymphadenopathy. There is a large amount of ascites which has progressed. Normal bladder. The prostate gland remains enlarged. Suboptimal evaluation for bowel pathology due to the lack of intravenous and oral contrast. However, there is no definite bowel wall thickening or obstruction. Colonic diverticulosis. No evidence for acute diverticulitis. Visualized appendix is unremarkable. IMPRESSION: 1. Interval progression of the fluid overload. This includes a large amount of ascites which has progressed. 2. No definite bowel wall thickening or obstruction. 3. Left-sided nephrolithiasis. No ureteral stones. No hydronephrosis. 4. Multiple subacute/healing fractures as described above. No acute fractures. 5. Additional findings as described above. ACT 112: Negative or not required by law. Electronically signed by: Caleb Hogan M.D. 08/02/2023 2:[address] 08/02/23 12:34 CT chest diagnostic wo con CLINICAL HISTORY: weakness, renal failure TECHNIQUE: Multidetector row helical CT of the chest was performed. Coronal and sagittal reformations were obtained. Automated dose lowering techniques and/or adjustment according to patient size were utilized for this exam. Comparison: Comparison is made to chest radiograph 08/02/2023 FINDINGS: Lungs and pleura: Atelectasis and mild interlobular septal thickening are seen in the dependent portions of the lungs. Heart and pericardium: There is cardiomegaly without evidence of pericardial effusion. Vessels: Pulmonary trunk measures 37 mm. Gas is seen in the subclavian vein, external jugular vein, and pulmonary trunk, likely due to intravenous injection. Mediastinum and idalia: Subcentimeter lymph nodes are seen. Chest wall and lower neck: Unremarkable. Abdomen: For findings below the diaphragm, please refer to CT of the abdomen dated the same. Bones: Degenerative changes in the thoracic spine. Subacute appearing fracture of the lateral right sixth, seventh, and eighth ribs. IMPRESSION: 1. Cardiomegaly with possible moderate pulmonary edema. 2. Subacute right rib fractures. ACT 112: Negative or not required by law. Electronically signed by: Nino Ray M.D. 08/02/2023 2:[address] 08/02/23 12:34 CT OF THE HEAD WITHOUT CONTRAST CLINICAL HISTORY: Weakness. COMPARISON STUDY: Head CT March 18, 2023. TECHNIQUE: Helical axial images of the head were obtained without IV contrast. Automated exposure control was utilized for the study. A dose lowering technique was utilized adhering to the principles of ALARA. FINDINGS: No acute intracranial hemorrhage, midline shift or mass effect is present. The ventricular system is unremarkable. The basal cisterns are patent. No extra-axial collections are present. There are no findings to suggest acute dural sinus thrombosis or acute territorial infarct. The appearance of the brain is unchanged. Multiple sites of venous gas are noted. IMPRESSION: 1. No acute intracranial findings. 2. Multifocal venous gas, likely related to IV insertion. ACT 112: Negative or not required by law. Electronically signed by: Joshua Piña M.D. 08/02/2023 2:35 PM I & O Totals 24 Hours 08/01/23 08/02/23 08/03/23 06:59 06:59 06:59 Intake Total 1720 / 1720 Balance 1720 / 1720 Cumulative 08/02/23 11:08 thru 08/02/23 14:45 Intake Total 1720 Balance 1720 RT Ventilator Mngmt (Last Documented) Ventilator Ordered Settings Respiratory Rate 15 08/02/23 13:55 Ventilator - PT Measurements Respiratory Rate 15 Coding Level of Care Code 91419 CRITICAL CARE 1ST 30-74M Diagnoses Low back pain M54.50 Septic shock A41.9; R65.21 Fluid overload E87.70 Hypervolemia type: unspecified Ascites R18.8 Incontinence R32 (3) Fluid overload Hypervolemia type: unspecified Qualified Code(s): E87.70 - Fluid overload, unspecified
[2023-08-02] MEDS ORDERED: VANCOMYCIN CONSULT ACTIVE PRN (16:04)
[2023-08-02 16:13] LABS: Appearance Urine Turbid (Clear); Bacteria Urine Automated None Seen (None Seen); Bilirubin Urine Negative (Negative); Blood Urine 3+ (Negative); Cast Urine Automated 0-2 /lpf (0-2); Color Urine Yellow; Epithelial Cell Urine Auto 0-2 /hpf (0-2); Glucose Urine UA Negative (Negative); Ketones Urine Negative (Negative); Leukocyte Esterase Urine 1+ (Negative); Nitrite Urine Negative (Negative); Protein Urine Trace (Negative); RBC Urine Automated >20 /hpf (0-2); Specific Gravity Urine 1.015 (1.000-1.030); Urobilinogen Urine Negative (Negative); WBC Urine Automated 0-5 /hpf (0-5)
[2023-08-02] MEDS: SODIUM ZIRCONIUM CYCLOSILICATE 10 GM PACKET PO STA (16:13)
[2023-08-02] MEDS ORDERED: CEFEPIME 2,000 MG in SYRINGE 0 ML IV SCH (16:15)
[2023-08-02] MEDS ORDERED: VANCOMYCIN HCL 1,250 MG in SODIUM CHLORIDE 0.9% 500 ML IV SCH (16:15)
[2023-08-02 16:22] LABS: Base Excess ABG -8.1 mEq/L (-9-1.8); HCO3 ABG 16 mmol/L (19-24); Oxygen Saturation ABG 98.6 % (90-95); PCO2 ABG 27 mmHg (35-46); PO2 ABG 104 mmHg (80-95); pH ABG 7.37 (7.35-7.45)
[2023-08-02 16:24] LABS: Reticulocyte % 2.14 % (0.50-2.00); Reticulocytes # 0.06 10^6/uL (0.020-0.100)
[2023-08-02] MEDS: PIPERACILLIN/TAZOBACTAM 4.5 GM/100 ML BAG IV ONE (16:35)
--- NOTE | 2023-08-02 16:37 | Cardiology Consultation ---
Date of Consultation August 02, 2023 Assessment & Plan (1) Septic shock: (2) Cardiac amyloidosis: (3) Cardiomyopathy: (4) Atrial fibrillation, permanent: (5) Heart failure with mid-range ejection fraction: (6) Heart block: (7) S/P placement of cardiac pacemaker: Plan ASSESSMENT/PLAN: 1. Septic shock: Concerned for septic shock. Immediately called Dr. Suarez of the hospital service and then Dr. Russell of the critical care team, so that appropriate measures were taken. Recommend blood and urine cultures. Recommend antibiotics. Blood pressure seems to have stabilized on phenylephrine. Can continue pressor support with phenylephrine. 2. Heart failure with midrange EF: He appears to be significantly hypervolemic. Would avoid more significant IV fluids. When blood pressure stabilizes, would recommend cautious diuresis. Discontinue spironolactone and ARB given acute renal failure and hyperkalemia. Discontinue metoprolol succinate given hypotension. ICD for primary prevention is not indicated. 3. Cardiac amyloid: Difficult situation. Volume management as able. [place] [facility] [place] Tafamidis does not seem to be offering much benefit at this time. 4. Cardiomyopathy: Plan as above. On preliminary review, LV systolic function seems stable compared to previous report. Formal review to follow. 5. Permanent atrial fibrillation: On anticoagulation for stroke risk reduction. While hospitalized, can use heparin drip to allow for procedures if necessary. 6. Complete heart block s/p pacemaker: Ventricularly pacing. 7. Disposition: Currently in critical condition. Recommend ICU. Immediately called admitting hospitalist service (Dr. Suarez) and critical care attending (Dr. Russell) as noted above. Patient care also discussed with Dr. Hdz of the emergency department. 65 min of critical care time spent, which includes [id number] time, counseling patient, coordinating care, reviewing multiple records/studies, coordinating with multiple services as above, and completing documentation. Thank you for allowing me to participate in the care of your patient. Please call for any other questions or concerns. Sincerely, Merrick Hankins M.D. History of Present Illness Reason for Consultation: Hypotension; cardiac amyloid Requesting Physician: Dr. Hdz Attending Physician: Dr. Hdz History of Present Illness Dr. Bashir is a pleasant 78-year-old gentleman with a history significant for cardiac amyloid, heart block s/p dual-chamber pacemaker, permanent atrial fibrillation, and atrial flutter (2020). His primary assembler latches and springs is Dr. Torres. He [place] [facility] [place] cardiac [place]. He presented to the emergency department today with back pain. On presentation, his blood pressure was noted to be hypotensive at 79/56 mmHg. In the ER, he received IV fluid x 1.5 L per report from Dr. Hdz. Initial labs demonstrated acute renal failure, hyperkalemia with a potassium of 6.5, leukocytosis (new), and anemia. Because his systolic pressure did not improve and in fact developed systolic pressure in the 60s, phenylephrine was initiated by the ER. This improved his blood pressure. Due to ongoing hypotension and concern for LVOT obstruction, Dr. Hdz contacted be this afternoon at approximately 1400. Echo was recommended. I presented to the bedside during the echo evaluation. At that time his systolic blood pressure was in the 90s to low 100s. He denied chest pain, shortness of breath, orthopnea, syncope, near syncope, palpitations, lightheadedness, melena, hematochezia, or hematuria. He states that he has only trace edema. Dr. Bashir believe that he was dehydrated due to his diuretics. He states that he lost 40 pounds a few months ago with diuretic management. Upon further questioning, he only takes torsemide approximately once per week with his last dose 2 or 3 days ago, if his history is accurate. He takes spironolactone on a daily basis. Despite working together for approximately 12 of the past approx 13 years in the same office setting, he did not know me and had asked the electronics technician apprentice who I was. Despite Dr. Bashir communicating with Dr. Torres today when Dr. Torres notified him that he was away, Dr. Bashir said he was unaware of that. Review of systems: As above. Review of systems otherwise negative/unremarkable. Family history: Noncontributory. Social history: Denies smoking. Consumes half a glass of wine 3 to 4 days/week. He is and lives at home with his . He has children. 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 He was unaccompanied in his ER room. Allergies Allergy/AdvReac Type Severity Reaction Status Date / Time No Known Allergies Allergy Verified 06/05/23 13:38 Home Medications Medication Instructions Recorded Confirmed Type metoprolol succinate 25 mg 12.5 mg (1/2 x 25 mg) PO DAILY #45 09/07/22 08/02/23 Rx tablet,extended release 24 hr tabs losartan 25 mg tablet 25 mg PO DAILY #90 tabs 09/27/22 08/02/23 Rx tafamidis meglumine 20 mg capsule 20 mg PO DAILY 02/24/23 08/02/23 History (Vyndaqel) torsemide 10 mg tablet 50 mg PO UD 06/05/23 08/02/23 History acetaminophen 325 mg capsule 325 mg PO QID PRN Pain 07/14/23 08/02/23 History (Tylenol) methocarbamol 500 mg tablet 500 mg PO TID #90 tabs 07/14/23 08/02/23 Rx apixaban 5 mg tablet (Eliquis) 5 mg PO BID #180 tabs 07/20/23 08/02/23 Rx gabapentin 300 mg capsule 300 mg PO BID #60 caps 07/24/23 08/02/23 Rx spironolactone 25 mg tablet 25 mg PO UD 08/02/23 08/02/23 History Patient History Medical History Heart failure with mid-range ejection fraction Cardiac amyloidosis Abnormal cholangiogram Cholecystitis, acute Hyperbilirubinemia Cholelithiasis Elevated troponin RUQ abdominal pain Heart block Pilonidal cyst Surgical History (Updated 08/02/23 @ 17:01 by Wang Hankins MD) S/P placement of cardiac pacemaker Hx laparoscopic cholecystectomy (03/11/21) Laparoscopic cholecystectomy with intraoperative cholangiogram Dr. 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 Alert. Disoriented as per HPI. HEENT: Anicteric sclera. Neck: JVD. Hepatojugular reflux. No bruits. Normal carotid upstrokes bilaterally. Cardiac: Regular. Normal S1-S2. 1/6 systolic murmur. Pulmonary: Clear to auscultation bilaterally without wheezes, rales, or rhonchi. Abdomen: Soft, nontender, protuberant, with normoactive bowel sounds. No bruits noted. Extremities: 2+ radial pulses bilaterally. Tense 3+ bilateral lower extremity edema to the knees. 1+ to 2+ edema above the knees to the hips bilaterally. No cyanosis. Results & Data Vital Signs (Past 12 Hours) Vital Signs Temp Pulse Resp BP BP Pulse Ox O2 Del Method 08/02/23 16:17 79 08/02/23 13:55 80/48 L 08/02/23 13:55 79 15 94 08/02/23 13:54 76/50 L 08/02/23 13:54 79 14 08/02/23 13:50 78/51 L 08/02/23 13:50 78/51 L 08/02/23 13:50 78 17 08/02/23 13:45 75 17 78 L 08/02/23 13:45 77/51 L 08/02/23 13:36 76 14 92 08/02/23 13:36 71/52 L 08/02/23 13:32 67/48 L 08/02/23 13:32 76 16 92 08/02/23 13:30 64/49 L 08/02/23 13:30 76 16 89 L 08/02/23 13:26 72/49 L 08/02/23 13:26 76 15 93 Room Air 08/02/23 13:17 74/46 L 96 Room Air 08/02/23 13:17 76 15 97 Room Air 08/02/23 13:13 18 74/46 L 96 Room Air 08/02/23 13:11 76 16 96 Room Air 08/02/23 13:11 73/45 L 08/02/23 13:04 72/48 L 08/02/23 13:04 77 17 82 L 08/02/23 13:00 72/51 L 08/02/23 13:00 77 16 82 L 08/02/23 12:45 77/45 L 08/02/23 12:45 76 20 08/02/23 12:43 67/48 L 08/02/23 12:43 67/48 L 08/02/23 12:43 76 15 08/02/23 12:34 76/47 L 08/02/23 12:34 76 17 08/02/23 12:31 71/51 L 08/02/23 12:31 77 17 08/02/23 12:30 77 16 08/02/23 12:16 85/54 L 08/02/23 12:16 85/54 L 08/02/23 12:16 77 16 08/02/23 12:01 84/56 L 08/02/23 12:01 76 21 08/02/23 12:00 76 22 08/02/23 11:55 77 16 96 Room Air 08/02/23 11:53 87/53 L 08/02/23 11:53 76 19 08/02/23 11:39 86/62 L 08/02/23 11:39 76 23 98 Room Air 08/02/23 11:35 77 20 96 Room Air 08/02/23 11:35 84/58 L 08/02/23 11:33 36.7 C 77 18 79/56 L 95 Room Air 08/02/23 11:30 92 H 15 96 Room Air 08/02/23 11:29 76 08/02/23 11:27 87 19 95 Room Air Laboratory Results Laboratory Results - last 24 hr 08/02/23 08/02/23 08/02/23 11:30 12:22 12:29 WBC 15.19 H RBC 2.78 L Hgb 9.3 L POC Hgb 9.9 L Hct 27.9 L POC Hct 29 L MCV 100.4 H MCH 33.5 MCHC 33.3 RDW Std Deviation 54.3 H RDW Coeff of Mariel 14.6 H Plt Count 231 MPV 9.8 Immature Gran % (Auto) 0.7 Neut % (Auto) 93.6 Lymph % (Auto) 1.7 Waller % (Auto) 3.8 Eos % (Auto) 0.0 Baso % (Auto) 0.2 Reticulocyte % (Auto) Neut # (Auto) 14.22 H Lymph # (Auto) 0.26 L Waller # (Auto) 0.57 Eos # (Auto) 0.00 Baso # (Auto) 0.03 Reticulocyte # Immature Gran # (Auto) 0.11 PT Cancelled INR Cancelled APTT PTT Ratio ABG pH ABG pCO2 ABG pO2 ABG HCO3 ABG O2 Saturation ABG Base Excess Fabian Test Oxygen Given POC Sodium 132 L Sodium 132 L POC Potassium 6.2 H* Potassium 6.5 H* POC Chloride 108 Chloride 105 Carbon Dioxide 17 L POC Total CO2 17 L Anion Gap 10 POC Anion Gap 15.0 L POC BUN 88 H BUN 92 H Creatinine 1.83 H POC Creatinine 1.8 H Est Cr Clr Drug Dosing Not Reportable Est GFR ( Amer) 39.5 Est GFR (Non-Af Amer) 34.1 BUN/Creatinine Ratio 50.3 H Glucose 83 POC Glucose POC Glucose (other) 84 Lactate Uric Acid 7.0 Calcium 9.5 POC Ioniz Calcium Sofiya 1.24 Phosphorus 3.5 Magnesium 2.3 Iron 51 Transferrin 214 Ferritin 393.2 H Total Bilirubin 2.1 H AST 26 ALT 17 Alkaline Phosphatase 153 H Ammonia Total Creatine Kinase 135 Troponin I High Sens 82.5 H* Total Protein 7.5 Albumin 3.8 Globulin 3.7 Albumin/Globulin Ratio 1.0 Vitamin B12 473 Folate 12.06 Procalcitonin TSH 6.200 H Free T4 1.40 Random Cortisol Urine Color Urine Appearance Urine pH Ur Specific [place] Urine Protein Urine Glucose (UA) Urine Ketones Urine Blood Urine Nitrite Urine Bilirubin Urine Urobilinogen Ur Leukocyte Esterase Urine WBC (Auto) Urine RBC (Auto) U Hyaline Cast (Auto) U Epithel Cells (Auto) Urine Bacteria (Auto) Anaplasma Smear See Comment A. phagocytophilum DNA Pending Babesia Smear See Comment Babesia microti DNA PCR Pending Lyme Disease Screen Negative E.chaffeensis DNA (PCR) Pending Q Fever Phase I IgG Ab Pending Q Fever Phase I IgM Ab Pending Q Fever Phase II IgG Ab Pending Q Fever Phase II IgM Ab Pending Rickettsia IgG Ab Pending Rickettsia IgM Ab Pending Typhus Fever IgG Ab Pending Typhus Fever IgM Ab Pending 08/02/23 08/02/23 08/02/23 13:02 13:55 15:22 WBC RBC Hgb POC Hgb Hct POC Hct MCV MCH MCHC RDW Std Deviation RDW Coeff of Mariel Plt Count MPV Immature Gran % (Auto) Neut % (Auto) Lymph % (Auto) Waller % (Auto) Eos % (Auto) Baso % (Auto) Reticulocyte % (Auto) Neut # (Auto) Lymph # (Auto) Waller # (Auto) Eos # (Auto) Baso # (Auto) Reticulocyte # Immature Gran # (Auto) PT 14.6 H INR 1.4 H APTT PTT Ratio ABG pH ABG pCO2 ABG pO2 ABG HCO3 ABG O2 Saturation ABG Base Excess Fabian Test Oxygen Given POC Sodium Sodium POC Potassium Potassium POC Chloride Chloride Carbon Dioxide POC Total CO2 Anion Gap POC Anion Gap POC BUN BUN Creatinine POC Creatinine Est Cr Clr Drug Dosing Est GFR ( Amer) Est GFR (Non-Af Amer) BUN/Creatinine Ratio Glucose POC Glucose 199 H POC Glucose (other) Lactate Uric Acid Calcium POC Ioniz Calcium Sofiya Phosphorus Magnesium Iron Transferrin Ferritin Total Bilirubin AST ALT Alkaline Phosphatase Ammonia Total Creatine Kinase Troponin I High Sens Total Protein Albumin Globulin Albumin/Globulin Ratio Vitamin B12 Folate Procalcitonin TSH Free T4 Random Cortisol Urine Color Yellow Urine Appearance Turbid A Urine pH 5.0 Ur Specific [place] 1.015 Urine Protein Trace H Urine Glucose (UA) Negative Urine Ketones Negative Urine Blood 3+ H Urine Nitrite Negative Urine Bilirubin Negative Urine Urobilinogen Negative Ur Leukocyte Esterase 1+ H Urine WBC (Auto) 0-5 Urine RBC (Auto) >20 H U Hyaline Cast (Auto) 0-2 U Epithel Cells (Auto) 0-2 Urine Bacteria (Auto) None Seen Anaplasma Smear A. phagocytophilum DNA Babesia Smear Babesia microti DNA PCR Lyme Disease Screen E.chaffeensis DNA (PCR) Q Fever Phase I IgG Ab Q Fever Phase I IgM Ab Q Fever Phase II IgG Ab Q Fever Phase II IgM Ab Rickettsia IgG Ab Rickettsia IgM Ab Typhus Fever IgG Ab Typhus Fever IgM Ab 08/02/23 08/02/23 08/02/23 16:06 16:09 16:30 WBC RBC Hgb POC Hgb Hct POC Hct MCV MCH MCHC RDW Std Deviation RDW Coeff of Mariel Plt Count MPV Immature Gran % (Auto) Neut % (Auto) Lymph % (Auto) Waller % (Auto) Eos % (Auto) Baso % (Auto) Reticulocyte % (Auto) 2.14 H Neut # (Auto) Lymph # (Auto) Waller # (Auto) Eos # (Auto) Baso # (Auto) Reticulocyte # 0.060 Immature Gran # (Auto) PT INR APTT 33 H PTT Ratio 1.2 ABG pH 7.37 ABG pCO2 27 L ABG pO2 104 H ABG HCO3 16 L ABG O2 Saturation 98.6 H ABG Base Excess -8.1 Fabian Test Pending Oxygen Given Pending POC Sodium Sodium 134 L POC Potassium Potassium 5.7 H POC Chloride Chloride 107 Carbon Dioxide 18 L POC Total CO2 Anion Gap 9 POC Anion Gap POC BUN BUN 85 H Creatinine 1.68 H POC Creatinine Est Cr Clr Drug Dosing 39.6 Est GFR ( Amer) 43.8 Est GFR (Non-Af Amer) 37.8 BUN/Creatinine Ratio 50.6 H Glucose 55 L POC Glucose POC Glucose (other) Lactate 1.2 Uric Acid Calcium 9.5 POC Ioniz Calcium Sofiya Phosphorus Magnesium Iron Transferrin Ferritin Total Bilirubin 2.2 H AST 24 ALT 17 Alkaline Phosphatase 148 H Ammonia 11.0 L Total Creatine Kinase Troponin I High Sens Pending Total Protein 7.3 Albumin 3.6 Globulin 3.7 Albumin/Globulin Ratio 1.0 Vitamin B12 Folate Procalcitonin 1.85 H TSH Free T4 Random Cortisol Pending Urine Color Urine Appearance Urine pH Ur Specific [place] Urine Protein Urine Glucose (UA) Urine Ketones Urine Blood Urine Nitrite Urine Bilirubin Urine Urobilinogen Ur Leukocyte Esterase Urine WBC (Auto) Urine RBC (Auto) U Hyaline Cast (Auto) U Epithel Cells (Auto) Urine Bacteria (Auto) Anaplasma Smear A. phagocytophilum DNA Babesia Smear Babesia microti DNA PCR Lyme Disease Screen E.chaffeensis DNA (PCR) Q Fever Phase I IgG Ab Q Fever Phase I IgM Ab Q Fever Phase II IgG Ab Q Fever Phase II IgM Ab Rickettsia IgG Ab Rickettsia IgM Ab Typhus Fever IgG Ab Typhus Fever IgM Ab 08/02/23 16:58 WBC RBC Hgb POC Hgb Hct POC Hct MCV MCH MCHC RDW Std Deviation RDW Coeff of Mariel Plt Count MPV Immature Gran % (Auto) Neut % (Auto) Lymph % (Auto) Waller % (Auto) Eos % (Auto) Baso % (Auto) Reticulocyte % (Auto) Neut # (Auto) Lymph # (Auto) Waller # (Auto) Eos # (Auto) Baso # (Auto) Reticulocyte # Immature Gran # (Auto) PT INR APTT PTT Ratio ABG pH ABG pCO2 ABG pO2 ABG HCO3 ABG O2 Saturation ABG Base Excess Fabian Test Oxygen Given POC Sodium Sodium POC Potassium Potassium POC Chloride Chloride Carbon Dioxide POC Total CO2 Anion Gap POC Anion Gap POC BUN BUN Creatinine POC Creatinine Est Cr Clr Drug Dosing Est GFR ( Amer) Est GFR (Non-Af Amer) BUN/Creatinine Ratio Glucose POC Glucose 52 L* POC Glucose (other) Lactate Uric Acid Calcium POC Ioniz Calcium Sofiya Phosphorus Magnesium Iron Transferrin Ferritin Total Bilirubin AST ALT Alkaline Phosphatase Ammonia Total Creatine Kinase Troponin I High Sens Total Protein Albumin Globulin Albumin/Globulin Ratio Vitamin B12 Folate Procalcitonin TSH Free T4 Random Cortisol Urine Color Urine Appearance Urine pH Ur Specific [place] Urine Protein Urine Glucose (UA) Urine Ketones Urine Blood Urine Nitrite Urine Bilirubin Urine Urobilinogen Ur Leukocyte Esterase Urine WBC (Auto) Urine RBC (Auto) U Hyaline Cast (Auto) U Epithel Cells (Auto) Urine Bacteria (Auto) Anaplasma Smear A. phagocytophilum DNA Babesia Smear Babesia microti DNA PCR Lyme Disease Screen E.chaffeensis DNA (PCR) Q Fever Phase I IgG Ab Q Fever Phase I IgM Ab Q Fever Phase II IgG Ab Q Fever Phase II IgM Ab Rickettsia IgG Ab Rickettsia IgM Ab Typhus Fever IgG Ab Typhus Fever IgM Ab Diagnostic Findings Echo reviewed at the bedside 08/02/2023: Preliminary review: Estimated EF 40 to 45%. Severe concentric LVH. Trace to small pericardial effusion. Nonsevere valvular regurgitation. Pleural effusion. ECG personally reviewed 08/02/2023: V paced in the 70s bpm. Labs reviewed and notable for new leukocytosis, acute renal failure, hyperkalemia, normal transaminase levels, mildly abnormal TSH, anemia, hyponatremia, mildly elevated high-sensitivity troponin. Outpatient cardiology notes reviewed. CT head 08/02/2023: No acute intracranial findings per radiology. CT chest 08/02/2023: Possible moderate pulmonary edema per radiology. Subacute right rib fractures. CT abdomen/pelvis 08/02/2023: Interval progression of fluid overload per radiology. Large amount of ascites which has progressed. Multiple subacute/healing fractures (sacral fracture, T12 compression fracture, multiple bilateral rib fractures). Diffuse body wall edema. Medications Administered Current Inpatient Medications Acetaminophen (Acetaminophen 325 Mg Tab) 650 mg PO Q4H PRN PRN Reason: pain/fever Stop: 09/01/23 16:39 Dextrose (Dextrose 50% 50 Ml Syringe) 25 - 50 ml IV UD PRN; Protocol PRN Reason: Hypoglycemia Protocol Stop: 09/01/23 17:01 Glucagon (Glucagon For Inj 1 Mg Vial) 1 mg SQ UD PRN; Protocol PRN Reason: Hypoglycemia Protocol Stop: 09/01/23 17:01 Glucose (Glucose 40% Gel 15 Gm Tube) 15 - 30 gm PO UD PRN; Protocol PRN Reason: Hypoglycemia Protocol Stop: 09/01/23 17:01 Glucose (Glucose 10 Tab/Tube) 4 - 8 tab PO UD PRN; Protocol PRN Reason: Hypoglycemia Treatment Stop: 09/01/23 17:01 Phenylephrine HCl (Phenylephrine/Nss) 25 mg in 250 mls @ 24 mls/hr IV .[id number] EDUARDO; Protocol Stop: 09/01/23 13:44 Last Titration: 08/02/23 16:47 Dose: 0.6 mcg/kg/min, 28.8 mls/hr Vancomycin HCl 2,000 mg/ (Sodium Chloride) 540 mls @ 200 mls/hr IV NOW ONE Stop: 08/02/23 19:11 Meropenem 500 mg/ Syringe 10 mls @ 2 mls/min IV Q8H [facility]; Protocol Stop: 08/04/23 00:29 Miscellaneous (Icu Protocol For Hyperglycemia) 1 each N/A ACHS EDUARDO Stop: 08/04/23 20:59 Miscellaneous (Carbohydrates For Hypoglycemia ) 15 - 30 gm PO UD PRN PRN Reason: Hypoglycemia Protocol Stop: 09/01/23 17:01 Miscellaneous Information (Vancomycin Consult Active) 1 each N/A UD PRN PRN Reason: Consult Stop: 09/01/23 16:03 Sodium Zirconium Cyclosilicate (Sodium Zirconium Cyclosilicate 10 Gm Packet) 10 gm PO TID [facility] Stop: 08/03/23 14:01 PG Care Time/CCT Total # of Minutes Spent Total Time Spent with Patient: Total time spent is greater than 50% in coordination of care (as documented) at patient's floor/unit and/or counseling patient: Critical Care Time: Yes Total Critical Care Time: 65 Coding Level of Care Code 75084 CRITICAL CARE 1ST 30-74M Diagnoses Septic shock A41.9; R65.21 Cardiac amyloidosis E85.4; I43 Cardiomyopathy I42.9 Atrial fibrillation, permanent I48.21 Heart failure with mid-range ejection fraction I50.22 Heart block I45.9 S/P placement of cardiac pacemaker Z95.0 Additional Codes Critical Care Time - Critical Care Time: Yes ([id number]) Time Spent (min) 65
[2023-08-02] MEDS ORDERED: ACETAMINOPHEN 325 MG TAB PO PRN (16:40)
[2023-08-02 16:44] LABS: Partial Thromboplastin Ratio 1.2; Partial Thromboplastin Time 33 Seconds (21-31)
[2023-08-02 16:46] LABS: Albumin Level 3.6 gm/dl (3.4-5.0); Bilirubin,Total 2.2 mg/dl (0.2-1.0); Calcium 9.5 mg/dl (8.6-10.3); Potassium 5.7 mmol/L (3.5-5.1)
[2023-08-02 16:52] LABS: BUN Creatinine Ratio 50.6 (10-20); Creatinine Clr Calc Pharmacy 39.6 ml/min; Est GFR (African American) 43.8 ml/min; Est GFR (Non-African American) 37.8 ml/min; Globulin 3.7 gm/dl (2.5-4.0); Total Protein 7.3 gm/dl (6.0-8.3)
[2023-08-02] MEDS ORDERED: GLUCAGON FOR INJ 1 MG VIAL SQ PRN (17:02)
[2023-08-02] MEDS ORDERED: DEXTROSE 50% 50 ML SYRINGE IV PRN (17:02)
[2023-08-02] MEDS ORDERED: GLUCOSE 10 TAB/TUBE PO PRN (17:02)
[2023-08-02] MEDS ORDERED: GLUCOSE 40% GEL 15 GM TUBE PO PRN (17:02)
[2023-08-02] MEDS ORDERED: CARBOHYDRATES FOR HYPOGLYCEMIA PO PRN (17:02)
[2023-08-02] MEDS: DEXTROSE 50% 50 ML SYRINGE IV ONE (17:03)
[2023-08-02] MEDS: MEROPENEM 500 MG in SYRINGE 0 ML IV ONE (17:05)
[2023-08-02] MEDS: VANCOMYCIN HCL 2,000 MG in SODIUM CHLORIDE 0.9% 500 ML IV ONE (17:06)
[2023-08-02 17:11] LABS: Troponin I High Sensitivity 91.5 pg/ml (0-20)
--- NOTE | 2023-08-02 18:32 | Nephrology Consultation ---
Date of Consultation August 02, 2023 Assessment & Plan (1) FILI (acute kidney injury): Non-oliguric. Kidneys are not obstructed. Ortega draining clear yellow urine. UA notable for trace protein. Microscopy with >20 RBC. No WBC. Several acquired renal cysts noted on imaging. Clinical presentation consistent with decreased EAV with possible ATN. 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 Medications are appropriate for kidney function. Losartan and spironolactone have been held. Gabapentin held -- limit to 300 mg daily if restarting. (2) Hypotension: Metoprolol, losartan, and spironolactone held. Avoid aggressive IV hydration. Phenylephrine infusing. BP acceptable. Early goal directed care for possible sepsis has been initiated. (3) Hyperkalemia: Lokelma ordered. Adequate urine output. Serial labs ordered. (4) Heart failure with mid-range ejection fraction: Cardiology consultation reviewed. Avoid diuretics at this time given hypotension. (5) Cardiac amyloidosis: Tafamidis held. History of Present Illness Reason for Consultation: hyperkalemia, amyloid, FILI Requesting Physician: Julito Suarez MD Attending Physician: Julito Suarez MD History of Present Illness Dr. Bashir was seen and evaluated in the ICU this evening. He was resting comfortably in bed. IV phenylephrine infusing. Ortega draining clear yellow urine. He was breathing comfortably and denied dyspnea. BP acceptable. No fevers or chills. Back pain not currently bothersome. Abdomen distended but not uncomfortable. He was oriented and answering questions appropriately. He feels that kidney dysfunction and hypotension are related to overdiuresis. He admits to progressive weight loss and weakness. Notable recent weight loss was associated with aggressive diuretic therapy over the past several weeks. Torsemide was recently reduced to once weekly. His concern was progressive back pain which was his reason for coming to [facility] for evaluation today. Upon presentation to the ED, he was found to be hypotensive and laboratory studies demonstrated an elevated WBC with abnormal LFTS and kidney dysfunction complicated by hyperkalemia. Anemia also noted. IV fluids were administered followed by vasopressor support. Dr. Bashir notes that 1000 ml of saline was infused and 1000 ml exited through the Ortega. He is tolerating adequate PO intake. Serum cortisol 34.8. Evaluation notable for fluid overload with increased abdominal ascites. TTE was completed in the ICU post admission. Antibiotic therapy with meropenem and vancomycin provided. CT abdomen demonstrates the kidneys to be unobstructed. Medical history is notable for cardiac amyloid, heart block s/p dual-chamber pacemaker, permanent atrial fibrillation, and Gilbert syndrome. He has been following with neurology for spinal stenosis and associated ambulatory dysfunction. Baseline kidney function is normal manifested by a serum creatinine of 1.1 mg/dL. He has not had proteinuria. Urine studies are notable for trace protein and +LE. RBC >20 and 0-5 WBC. There are multiple cysts in the kidneys, measuring up to 7.5 cm on the left with mural calcification. Kidneys are otherwise normal in appearance. 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 He started torsemide 50 mg daily several weeks ago. He reports 40+ lbs weight loss with the medication. It was subsequently weaned to once weekly. Allergies Allergy/AdvReac Type Severity Reaction Status Date / Time No Known Allergies Allergy Verified 06/05/23 13:38 Home Medications Medication Instructions Recorded Confirmed Type metoprolol succinate 25 mg 12.5 mg (1/2 x 25 mg) PO DAILY #45 09/07/22 08/02/23 Rx tablet,extended release 24 hr tabs losartan 25 mg tablet 25 mg PO DAILY #90 tabs 09/27/22 08/02/23 Rx tafamidis meglumine 20 mg capsule 20 mg PO DAILY 02/24/23 08/02/23 History (Vyndaqel) torsemide 10 mg tablet 50 mg PO UD 06/05/23 08/02/23 History acetaminophen 325 mg capsule 325 mg PO QID PRN Pain 07/14/23 08/02/23 History (Tylenol) methocarbamol 500 mg tablet 500 mg PO TID #90 tabs 07/14/23 08/02/23 Rx apixaban 5 mg tablet (Eliquis) 5 mg PO BID #180 tabs 07/20/23 08/02/23 Rx gabapentin 300 mg capsule 300 mg PO BID #60 caps 07/24/23 08/02/23 Rx spironolactone 25 mg tablet 25 mg PO UD 08/02/23 08/02/23 History Patient History Medical History Atrial fibrillation, permanent 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 Nunez 03-11-2021 Social History Smoking Status: Never smoker Hx Alcohol Use: Yes Alcohol type: wine Hx Substance Use: No Preferred Language: Haitian Communication Ability: Effective Visual Impairment: No Limitations Experimental Physicist Required: No Beliefs That Will Affect Care: None marital status: Current Living Situation: Spouse How many Children do You have: 2 Feels Safe at Home: Yes Safety Concerns: Feels Safe At This Time Assistive Devices: Cane and Glasses Review of Systems Review of Systems: All systems reviewed & are unremarkable except as noted in HPI & below Constitutional: + weight loss Physical Exam Constitutional: + thin, + frail appearing and comfortabl e; no acute distress Eyes: + anicteric sclerae; no conjunctival abn ormality Neck: normal visual inspection and trachea midline Respiratory: normal respiratory effort Cardiovascular: Rate/Rhythm: regular rate Vessels: + JVD Extremities: + edema Skin: no jaundice Neurologic: Motor/Sensory: no tremor and no asterixis Psychiatric: Orientation: alert and oriented x 3 Genitourinary: Ortega draining clear yellow urine Results & Data Vital Signs (Past 12 Hours) Vital Signs Temp Pulse Resp BP BP Pulse Ox O2 Del Method 08/02/23 16:31 94/53 L 08/02/23 16:31 80 21 99 08/02/23 16:30 81 18 98 Room Air 08/02/23 16:17 80 16 98 Room Air 08/02/23 16:17 97/53 L 08/02/23 16:17 79 08/02/23 16:00 80 18 98 Room Air 08/02/23 16:00 97/60 L 08/02/23 15:59 96/61 L 08/02/23 15:59 79 21 97 08/02/23 15:32 79 15 97 08/02/23 15:32 105/58 L 08/02/23 15:30 79 21 98 08/02/23 15:19 80 16 96 08/02/23 15:19 98/58 L 08/02/23 15:00 22 08/02/23 14:45 105/70 08/02/23 14:45 79 17 99 08/02/23 14:30 93/62 L 08/02/23 14:30 78 18 97 Room Air 08/02/23 14:27 94/65 L 08/02/23 14:27 79 16 97 Room Air 08/02/23 14:22 99 Room Air 08/02/23 13:55 80/48 L 08/02/23 13:55 79 15 94 08/02/23 13:54 76/50 L 08/02/23 13:54 79 14 08/02/23 13:50 78/51 L 08/02/23 13:50 78/51 L 08/02/23 13:50 78 17 08/02/23 13:45 75 17 78 L 08/02/23 13:45 77/51 L 08/02/23 13:36 76 14 92 08/02/23 13:36 71/52 L 08/02/23 13:32 67/48 L 08/02/23 13:32 76 16 92 08/02/23 13:30 64/49 L 08/02/23 13:30 76 16 89 L 08/02/23 13:26 72/49 L 08/02/23 13:26 76 15 93 Room Air 08/02/23 13:17 74/46 L 96 Room Air 08/02/23 13:17 76 15 97 Room Air 08/02/23 13:13 18 74/46 L 96 Room Air 08/02/23 13:11 76 16 96 Room Air 08/02/23 13:11 73/45 L 08/02/23 13:04 72/48 L 08/02/23 13:04 77 17 82 L 08/02/23 13:00 72/51 L 08/02/23 13:00 77 16 82 L 08/02/23 12:45 77/45 L 08/02/23 12:45 76 20 08/02/23 12:43 67/48 L 08/02/23 12:43 67/48 L 08/02/23 12:43 76 15 08/02/23 12:34 76/47 L 08/02/23 12:34 76 17 08/02/23 12:31 71/51 L 05/08/24 12:31 77 17 08/02/23 12:30 77 16 08/02/23 12:16 85/54 L 08/02/23 12:16 85/54 L 08/02/23 12:16 77 16 08/02/23 12:01 84/56 L 08/02/23 12:01 76 21 08/02/23 12:00 76 22 08/02/23 11:55 77 16 96 Room Air 08/02/23 11:53 87/53 L 08/02/23 11:53 76 19 08/02/23 11:39 86/62 L 08/02/23 11:39 76 23 98 Room Air 08/02/23 11:35 77 20 96 Room Air 08/02/23 11:35 84/58 L 08/02/23 11:33 36.7 C 77 18 79/56 L 95 Room Air 08/02/23 11:30 92 H 15 96 Room Air 08/02/23 11:29 76 08/02/23 11:27 87 19 95 Room Air Laboratory Results Laboratory Results - last 24 hr 08/02/23 08/02/23 08/02/23 11:30 12:22 12:29 WBC 15.19 H RBC 2.78 L Hgb 9.3 L POC Hgb 9.9 L Hct 27.9 L POC Hct 29 L MCV 100.4 H MCH 33.5 MCHC 33.3 RDW Std Deviation 54.3 H RDW Coeff of Mariel 14.6 H Plt Count 231 MPV 9.8 Immature Gran % (Auto) 0.7 Neut % (Auto) 93.6 Lymph % (Auto) 1.7 Monroe % (Auto) 3.8 Eos % (Auto) 0.0 Baso % (Auto) 0.2 Reticulocyte % (Auto) Neut # (Auto) 14.22 H Lymph # (Auto) 0.26 L Monroe # (Auto) 0.57 Eos # (Auto) 0.00 Baso # (Auto) 0.03 Reticulocyte # Immature Gran # (Auto) 0.11 PT Cancelled INR Cancelled APTT PTT Ratio ABG pH ABG pCO2 ABG pO2 ABG HCO3 ABG O2 Saturation ABG Base Excess Fabian Test Oxygen Given POC Sodium 132 L Sodium 132 L POC Potassium 6.2 H* Potassium 6.5 H* POC Chloride 108 Chloride 105 Carbon Dioxide 17 L POC Total CO2 17 L Anion Gap 10 POC Anion Gap 15.0 L POC BUN 88 H BUN 92 H Creatinine 1.83 H POC Creatinine 1.8 H Est Cr Clr Drug Dosing Not Reportable Est GFR ( Amer) 39.5 Est GFR (Non-Af Amer) 34.1 BUN/Creatinine Ratio 50.3 H Glucose 83 POC Glucose POC Glucose (other) 84 Lactate Uric Acid 7.0 Calcium 9.5 POC Ioniz Calcium Sofiya 1.24 Phosphorus 3.5 Magnesium 2.3 Iron 51 Transferrin 214 Ferritin 393.2 H Total Bilirubin 2.1 H AST 26 ALT 17 Alkaline Phosphatase 153 H Ammonia Total Creatine Kinase 135 Troponin I High Sens 82.5 H* Total Protein 7.5 Albumin 3.8 Globulin 3.7 Albumin/Globulin Ratio 1.0 Vitamin B12 473 Folate 12.06 Procalcitonin TSH 6.200 H Free T4 1.40 Random Cortisol Urine Color Urine Appearance Urine pH Ur Specific Hasty Urine Protein Urine Glucose (UA) Urine Ketones Urine Blood Urine Nitrite Urine Bilirubin Urine Urobilinogen Ur Leukocyte Esterase Urine WBC (Auto) Urine RBC (Auto) U Hyaline Cast (Auto) U Epithel Cells (Auto) Urine Bacteria (Auto) Anaplasma Smear See Comment A. phagocytophilum DNA Pending Babesia Smear See Comment Babesia microti DNA PCR Pending Lyme Disease Screen Negative E.chaffeensis DNA (PCR) Pending Q Fever Phase I IgG Ab Pending Q Fever Phase I IgM Ab Pending Q Fever Phase II IgG Ab Pending Q Fever Phase II IgM Ab Pending Rickettsia IgG Ab Pending Rickettsia IgM Ab Pending Typhus Fever IgG Ab Pending Typhus Fever IgM Ab Pending 08/02/23 08/02/23 08/02/23 13:02 13:55 15:22 WBC RBC Hgb POC Hgb Hct POC Hct MCV MCH MCHC RDW Std Deviation RDW Coeff of Mariel Plt Count MPV Immature Gran % (Auto) Neut % (Auto) Lymph % (Auto) Monroe % (Auto) Eos % (Auto) Baso % (Auto) Reticulocyte % (Auto) Neut # (Auto) Lymph # (Auto) Monroe # (Auto) Eos # (Auto) Baso # (Auto) Reticulocyte # Immature Gran # (Auto) PT 14.6 H INR 1.4 H APTT PTT Ratio ABG pH ABG pCO2 ABG pO2 ABG HCO3 ABG O2 Saturation ABG Base Excess Fabian Test Oxygen Given POC Sodium Sodium POC Potassium Potassium POC Chloride Chloride Carbon Dioxide POC Total CO2 Anion Gap POC Anion Gap POC BUN BUN Creatinine POC Creatinine Est Cr Clr Drug Dosing Est GFR ( Amer) Est GFR (Non-Af Amer) BUN/Creatinine Ratio Glucose POC Glucose 199 H POC Glucose (other) Lactate Uric Acid Calcium POC Ioniz Calcium Sofiya Phosphorus Magnesium Iron Transferrin Ferritin Total Bilirubin AST ALT Alkaline Phosphatase Ammonia Total Creatine Kinase Troponin I High Sens Total Protein Albumin Globulin Albumin/Globulin Ratio Vitamin B12 Folate Procalcitonin TSH Free T4 Random Cortisol Urine Color Yellow Urine Appearance Turbid A Urine pH 5.0 Ur Specific Hasty 1.015 Urine Protein Trace H Urine Glucose (UA) Negative Urine Ketones Negative Urine Blood 3+ H Urine Nitrite Negative Urine Bilirubin Negative Urine Urobilinogen Negative Ur Leukocyte Esterase 1+ H Urine WBC (Auto) 0-5 Urine RBC (Auto) >20 H U Hyaline Cast (Auto) 0-2 U Epithel Cells (Auto) 0-2 Urine Bacteria (Auto) None Seen Anaplasma Smear A. phagocytophilum DNA Babesia Smear Babesia microti DNA PCR Lyme Disease Screen E.chaffeensis DNA (PCR) Q Fever Phase I IgG Ab Q Fever Phase I IgM Ab Q Fever Phase II IgG Ab Q Fever Phase II IgM Ab Rickettsia IgG Ab Rickettsia IgM Ab Typhus Fever IgG Ab Typhus Fever IgM Ab 08/02/23 08/02/23 08/02/23 16:06 16:09 16:30 WBC RBC Hgb POC Hgb Hct POC Hct MCV MCH MCHC RDW Std Deviation RDW Coeff of Mariel Plt Count MPV Immature Gran % (Auto) Neut % (Auto) Lymph % (Auto) Monroe % (Auto) Eos % (Auto) Baso % (Auto) Reticulocyte % (Auto) 2.14 H Neut # (Auto) Lymph # (Auto) Monroe # (Auto) Eos # (Auto) Baso # (Auto) Reticulocyte # 0.060 Immature Gran # (Auto) PT INR APTT 33 H PTT Ratio 1.2 ABG pH 7.37 ABG pCO2 27 L ABG pO2 104 H ABG HCO3 16 L ABG O2 Saturation 98.6 H ABG Base Excess -8.1 Fabian Test Pending Oxygen Given Pending POC Sodium Sodium 134 L POC Potassium Potassium 5.7 H POC Chloride Chloride 107 Carbon Dioxide 18 L POC Total CO2 Anion Gap 9 POC Anion Gap POC BUN BUN 85 H Creatinine 1.68 H POC Creatinine Est Cr Clr Drug Dosing 39.6 Est GFR ( Amer) 43.8 Est GFR (Non-Af Amer) 37.8 BUN/Creatinine Ratio 50.6 H Glucose 55 L POC Glucose POC Glucose (other) Lactate 1.2 Uric Acid Calcium 9.5 POC Ioniz Calcium Sofiya Phosphorus Magnesium Iron Transferrin Ferritin Total Bilirubin 2.2 H AST 24 ALT 17 Alkaline Phosphatase 148 H Ammonia 11.0 L Total Creatine Kinase Troponin I High Sens 91.5 H* Total Protein 7.3 Albumin 3.6 Globulin 3.7 Albumin/Globulin Ratio 1.0 Vitamin B12 Folate Procalcitonin 1.85 H TSH Free T4 Random Cortisol 34.79 Urine Color Urine Appearance Urine pH Ur Specific Hasty Urine Protein Urine Glucose (UA) Urine Ketones Urine Blood Urine Nitrite Urine Bilirubin Urine Urobilinogen Ur Leukocyte Esterase Urine WBC (Auto) Urine RBC (Auto) U Hyaline Cast (Auto) U Epithel Cells (Auto) Urine Bacteria (Auto) Anaplasma Smear A. phagocytophilum DNA Babesia Smear Babesia microti DNA PCR Lyme Disease Screen E.chaffeensis DNA (PCR) Q Fever Phase I IgG Ab Q Fever Phase I IgM Ab Q Fever Phase II IgG Ab Q Fever Phase II IgM Ab Rickettsia IgG Ab Rickettsia IgM Ab Typhus Fever IgG Ab Typhus Fever IgM Ab 08/02/23 08/02/23 16:58 17:48 WBC RBC Hgb POC Hgb Hct POC Hct MCV MCH MCHC RDW Std Deviation RDW Coeff of Mariel Plt Count MPV Immature Gran % (Auto) Neut % (Auto) Lymph % (Auto) Monroe % (Auto) Eos % (Auto) Baso % (Auto) Reticulocyte % (Auto) Neut # (Auto) Lymph # (Auto) Monroe # (Auto) Eos # (Auto) Baso # (Auto) Reticulocyte # Immature Gran # (Auto) PT INR APTT PTT Ratio ABG pH ABG pCO2 ABG pO2 ABG HCO3 ABG O2 Saturation ABG Base Excess Fabian Test Oxygen Given POC Sodium Sodium POC Potassium Potassium POC Chloride Chloride Carbon Dioxide POC Total CO2 Anion Gap POC Anion Gap POC BUN BUN Creatinine POC Creatinine Est Cr Clr Drug Dosing Est GFR ( Amer) Est GFR (Non-Af Amer) BUN/Creatinine Ratio Glucose POC Glucose 52 L* 110 H POC Glucose (other) Lactate Uric Acid Calcium POC Ioniz Calcium Sofiya Phosphorus Magnesium Iron Transferrin Ferritin Total Bilirubin AST ALT Alkaline Phosphatase Ammonia Total Creatine Kinase Troponin I High Sens Total Protein Albumin Globulin Albumin/Globulin Ratio Vitamin B12 Folate Procalcitonin TSH Free T4 Random Cortisol Urine Color Urine Appearance Urine pH Ur Specific Hasty Urine Protein Urine Glucose (UA) Urine Ketones Urine Blood Urine Nitrite Urine Bilirubin Urine Urobilinogen Ur Leukocyte Esterase Urine WBC (Auto) Urine RBC (Auto) U Hyaline Cast (Auto) U Epithel Cells (Auto) Urine Bacteria (Auto) Anaplasma Smear A. phagocytophilum DNA Babesia Smear Babesia microti DNA PCR Lyme Disease Screen E.chaffeensis DNA (PCR) Q Fever Phase I IgG Ab Q Fever Phase I IgM Ab Q Fever Phase II IgG Ab Q Fever Phase II IgM Ab Rickettsia IgG Ab Rickettsia IgM Ab Typhus Fever IgG Ab Typhus Fever IgM Ab Diagnostic Findings ABDOMEN AND PELVIS CT WITHOUT CONTRAST TECHNIQUE: Multiaxial CT images of the abdomen and pelvis were performed without contrast. COMPARISON STUDY: Abdomen and pelvis CT 03/10/2021. FINDINGS: The lung bases will be reported on the same day chest CT. Bibasilar linear densities favor subsegmental atelectasis. There are trace bilateral pleural effusions. The heart remains enlarged. Pacemaker wires are noted. No pneumoperitoneum. No pneumatosis. Slightly displaced distal sacral fracture which is likely subacute. There is a mild to moderate superior endplate compression fracture at T12 which appears subacute. Multiple bilateral rib fractures most pronounced on the right which also appear to represent healing/subacute fractures. No definite acute fractures identified. Diffuse body wall edema. The gallbladder surgically absent. The unenhanced liver, pancreas, spleen, and adrenal glands unremarkable. Bilateral renal cysts again noted. The dominant 7.5 cm cyst within the left upper pole demonstrates mural calcifica tion. There is a punctate stone within the lower pole the left kidney. No hydronephrosis. Decreased attenuation within the blood pool suggesting underlying anemia. No retroperitoneal lymphadenopathy. Normal caliber abdominal aorta. No pelvic lymphadenopathy. There is a large amount of ascites which has progressed. Normal bladder. The prostate gland remains enlarged. Suboptimal evaluation for bowel pathology due to the lack of intravenous and oral contrast. However, there is no definite bowel wall thickening or obstruction. Colonic diverticulosis. No evidence for acute diverticulitis. Visualized appendix is unremarkable. IMPRESSION: 1. Interval progression of the fluid overload. This includes a large amount of ascites which has progressed. 2. No definite bowel wall thickening or obstruction. 3. Left-sided nephrolithiasis. No ureteral stones. No hydronephrosis. 4. Multiple subacute/healing fractures as described above. No acute fractures. ECG Rate (beats per minute): 96 Additional Comments: Ventricular-paced rhythm with Premature supraventricular complexes and with occasional Premature ventricular complexes PG Care Time/CCT Total # of Minutes Spent Total Time Spent with Patient: Total time spent is greater than 50% in coordination of care (as documented) at patient's floor/unit and/or counseling patient: Coding Level of Care Code 17509 IN/OBS CONSULT LVL 4,60M Diagnoses FILI (acute kidney injury) N17.9 Hypotension I95.9 Hyperkalemia E87.5 Heart failure with mid-range ejection fraction I50.22 Cardiac amyloidosis E85.4; I43
[2023-08-02 18:37] LABS: Allen Test Pos (Pos)
[2023-08-02] MEDS ORDERED: Nursing to Pharmacy Communication SCH (20:30)
[2023-08-02] MEDS: SODIUM ZIRCONIUM CYCLOSILICATE 10 GM PACKET PO SCH (20:42)
[2023-08-02] MEDS: ICU Protocol for HYPERglycemia SCH (20:43)
[2023-08-02] MEDS: STAT IV Infusion **Titration per Protocol STA (20:43)
[2023-08-02] MEDS ORDERED: APIXABAN 5 MG TABLET PO SCH (21:00)
[2023-08-02] MEDS: PLASMA-LYTE A 1,000 ML IV ONE (22:14)
[2023-08-02 22:46] LABS: Base Excess VBG -4.7 mEq/L; HCO3 VBG 20 mmol/L; Oxygen Saturation VBG < 60.0 %; PCO2 VBG 37 mmHg (38-50); PO2 VBG 23 mmHg; pH VBG 7.35 (7.36-7.41)
[2023-08-02 23:08] LABS: Albumin Globulin Ratio 1.1 (0.9-2); Albumin Level 3.3 gm/dl (3.4-5.0); BUN Creatinine Ratio 46.6 (10-20); Bilirubin,Total 1.9 mg/dl (0.2-1.0); Calcium 8.7 mg/dl (8.6-10.3); Creatinine Clr Calc Pharmacy 40.8 ml/min; Est GFR (African American) 45.4 ml/min; Est GFR (Non-African American) 39.2 ml/min; Globulin 3.1 gm/dl (2.5-4.0); Potassium 5.8 mmol/L (3.5-5.1); Total Protein 6.4 gm/dl (6.0-8.3)
--- NOTE | 2023-08-02 23:10 | XCELERA ---
[id number]
[2023-08-03] MEDS: MEROPENEM 500 MG in SYRINGE 0 ML IV SCH (00:52)
[2023-08-03] MEDS: APIXABAN 2.5 MG TAB PO SCH (00:52)
[2023-08-03] MEDS: GADOBUTROL 65ML VIAL IV ONE (00:57)
[2023-08-03] MEDS: TAFAMIDIS MEGLUMINE 20 MG PO SCH ×2 (00:59→20:23)
--- NOTE | 2023-08-03 01:59 | Magnetic Resonance Report ---
Exam(s): MRI L SPINE W/WO Contrast IV Amt: 8cc gadavist EXAM: MR Lumbar Spine Without and With Intravenous Contrast CLINICAL HISTORY: Reason for exam: epidural abscess r/o. TECHNIQUE: Magnetic resonance images of the lumbar spine without and with intravenous contrast in multiple planes. Significant limited evaluation due to signal dropout. CONTRAST: Patient received 8cc gadavist of IV contrast COMPARISON: CT abdomen pelvis done earlier the same day. FINDINGS: Vertebrae: Moderate T12 compression deformity, with underlying edema, nonspecific, see separately dictated thoracic spine MRI report. Mild superior endplate edema and deformity of L1, likely acute or subacute fracture. There is no worrisome metastatic disease in the lumbar spine. No discitis or osteomyelitis. Conus: Terminates normally. No abnormal enhancement. Soft tissues: No obvious psoas or epidural abscess. Significant artifact limits evaluation. Ascites and pleural effusions, better seen on CT. DISCS/SPINAL CANAL/NEURAL FORAMINA: L1-L2: Mild degenerative disc disease. Severe facet hypertrophy and borderline central spinal stenosis. L2-L3: Moderate central spinal stenosis due to moderate disc protrusion, disc space narrowing, severe facet hypertrophy. There is moderate to severe bilateral foraminal stenosis. L3-L4: Severe disc space narrowing, large disc herniation, severe facet and ligamentum flavum hypertrophy, results in severe central spinal stenosis and severe bilateral foraminal stenosis. L4-L5: Severe disc space narrowing, with moderate circumferential disc protrusion, with inferior migration on the right, severe facet hypertrophy, and severe right foraminal and right lateral recess stenosis. Moderate central spinal stenosis and left foraminal stenosis. L5-S1: Severe disc space narrowing with moderate slightly rightward disc bulge and osteophyte, and severe bilateral foraminal stenosis. No significant central spinal stenosis, though potential for right S1 impingement syndrome, correlate clinically. IMPRESSION: 1. Moderate compression fracture T12, see separately dictated thoracic spine MRI. 2. Mild superior endplate edema and compression fracture L1, likely acute or subacute. 3. Severe diffuse degenerative disc disease including severe central spinal stenosis L3-4, moderate central spinal stenosis L2-3 at L4-5 and multilevel lateral recess and foraminal stenosis, as detailed above. 4. No discitis, osteomyelitis, or epidural abscess, though there is significant technical artifact limiting evaluation. Consider follow-up if symptoms persist. 5. No bony metastatic disease in the lumbar spine. Electronically signed by: Enedina Wallis M.D. 08/03/23 01:59 AM
--- NOTE | 2023-08-03 01:59 | Magnetic Resonance Report ---
Exam(s): MRI T SPINE W/WO Contrast IV Amt: 8cc gadavist EXAM: MR Thoracic Spine Without and With Intravenous Contrast CLINICAL HISTORY: Reason for exam: epidural abscess rule out, low back pain x 1 month. leg weakness. history of sciatica. TECHNIQUE: Magnetic resonance images of the thoracic spine without and with intravenous contrast in multiple planes. Technical issues resulting in moderate signal dropout particularly in the lower thoracic spine. CONTRAST: Patient received 8cc gadavist of IV contrast COMPARISON: CT abdomen pelvis 08/02/23 FINDINGS: Vertebrae: Stable, moderate, biconcave compression fracture of T12, minimal retropulsion superior endplate. Mild edema suggest that this is acute or subacute, and subacute fractures can be associated with avascular necrosis. There is significant technical artifact limiting evaluation. Mild heterogeneous marrow signal, specifically at T2 left pedicle, there is an enhancing mass that is concerning for bony metastatic disease. More subtle lesions are seen T8, T9 and T10 without corresponding CT abnormality that could reflect an atypical hemangioma, though metastatic disease difficult to entirely exclude. No discitis or osteomyelitis. Discs/spinal canal/neural foramina: Moderate, central T7-8 disc protrusion, without spinal stenosis. No other focal disc disease or spinal stenosis. Spinal cord: Grossly normal signal. No abnormal enhancement. Soft tissues: Bilateral pleural effusions and ascites, stable. No definite epidural abscess or abnormal enhancement. IMPRESSION: 1. Moderate biconcave compression T12 with edema, may reflect an acute or subacute fracture that may be associated with avascular necrosis, correlate clinically. 2. Possible bony metastatic disease, most notably left T2 pedicle. Correlate clinically, and if necessary with nuclear medicine bone scan imaging or PET CT as clinically indicated. 3. Moderate central disc protrusion T7-8. 4. No discitis, osteomyelitis, epidural abscess, spinal stenosis, abnormal cord signal or abnormal enhancement. 5. Significant technical artifact limits detail. Consider follow-up if symptoms persist or progress. Communications: Verify Receipt with Nurse Electronically signed by: Enedina Wallis M.D. 08/03/23 01:58 AM
[2023-08-03 05:09] LABS: Basophils # (auto) 0.04 K/uL (0.00-0.20); Basophils % (auto) 0.2 %; Hemoglobin 10.1 g/dl (14.0-18.0); Immature Granulocytes # (auto) 0.35 K/uL (0.01-0.20); Immature Granulocytes % (auto) 1.7 %; Lymphocytes # (auto) 0.65 K/uL (1.20-3.40); Lymphocytes % (auto) 3.2 %; Mean Corpuscular Hemoglobin 34.1 pg (25.0-34.0); Mean Corpuscular Hgb Conc 34.8 g/dL (32.0-36.0); Mean Platelet Volume 9.6 fL (9.4-12.4); Monocytes # (auto) 1.13 K/uL (0.11-0.59); Monocytes % (auto) 5.6 %; Neutrophils # (auto) 18.09 K/uL (1.40-6.50); Neutrophils % (auto) 89.3 %; Platelet Count 288 K/uL (130-400); RDW Coefficient of Variation 14.7 % (11.5-14.5); RDW Standard Deviation 52.6 fL (36.4-46.3); Red Blood Count 2.96 M/uL (4.70-6.10); White Blood Count 20.26 K/ul (4.8-10.8)
[2023-08-03 05:26] LABS: Albumin Globulin Ratio 1.1 (0.9-2); Albumin Level 3.2 gm/dl (3.4-5.0); BUN Creatinine Ratio 51.9 (10-20); Bilirubin,Total 1.5 mg/dl (0.2-1.0); Calcium 8.6 mg/dl (8.6-10.3); Creatinine Clr Calc Pharmacy 50.8 ml/min; Est GFR (African American) 59.2 ml/min; Est GFR (Non-African American) 51.1 ml/min; Globulin 2.9 gm/dl (2.5-4.0); Magnesium 2.1 mg/dl (1.7-2.4); Potassium 5.3 mmol/L (3.5-5.1); Total Protein 6.1 gm/dl (6.0-8.3)
[2023-08-03 05:33] LABS: Troponin I High Sensitivity 98.7 pg/ml (0-20)
[2023-08-03] MEDS: VANCOMYCIN HCL 750 MG in SODIUM CHLORIDE 0.9% 250 ML IV SCH (08:52)
[2023-08-03] MEDS ORDERED: METOPROLOL SUCC 25MG EXT REL TAB PO SCH (09:00)
[2023-08-03] MEDS ORDERED: TAFAMIDIS MEGLUMINE 20 MG PO SCH (09:00)
--- NOTE | 2023-08-03 09:02 | Procedure Note ---
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 Written consent was obtained and verified prior to commencement of the procedure. Anesthesia: 3 mL 1% lidocaine locally. Indication: Ascites, rule out SBP Procedure: Patient was placed in a semirecumbent position. Limited ultrasound of the abdomen was performed which revealed significant ascites in all 4 quadrants. A site was marked in the right lower quadrant. Skin was prepped and draped using chlorhexidine and a sterile field established. Lidocaine was used to anesthetize the skin subcutaneous and peritoneal surfaces. After anesthesia was accomplished, a 22-gauge over the needle catheter was advanced in a Z-line fashion. Ascitic fluid was easily aspirated. The catheter was advanced over the needle and left in place. A stopcock was attached to the catheter. 500 cc of yellow fluid was removed. Blood cultures were inoculated at bedside and samples were obtained. The catheter was then removed and a sterile dressing was applied. The patient tolerated the procedure well. Fluid will be sent for cell count differential, cytology, Gram stain and culture, albumin, and total protein Coding CPT Codes Abdomen - Abdominal: 85643 Abdominal Paracentesis (diagnostic or therapeutic); W/O imaging ([id number]) Tubes, Drains, and Vasc Access - Tubes, Drains, and Vasc Access: [id number] Ultrasonic Guide For Needle Placement ([id number]) [facility] [place] Codes (Charges) Abdomen Abdominal: 80880 Abdominal Paracentesis (diagnostic or therapeutic); W/O imaging Tubes, Drains, and Vasc Access Procedure 2: Tubes, Drains, and Vasc Access: [id number] Ultrasonic Guide For Needle Placement
--- NOTE | 2023-08-03 09:07 | Critical Care Progress Note ---
Date of Service August 03, 2023 Assessment & Plan (1) Low back pain: (2) Septic shock: (3) Fluid overload: (4) Ascites: (5) Incontinence: Plan Impression: 78-year-old male with history of cardiac amyloid, atrial fibrillation, admitted with persistent back pain, leukocytosis, hypotension and concern for potential infection. He has multiple etiologies including SBP or epidural abscess given his complaints. He has received small amount of crystalloid (500 cc) but additional fluids are not indicated currently given his hypervolemic state. 24-hour events: The patient presented to the emergency room. He was found to be in severe septic shock. Pressors were initiated. He was admitted to the ICU. He had an MRI of the spine completed last evening which showed multilevel degenerative disease with severe spinal stenosis and compression fractures but no evidence of epidural abscess or infectious etiologies. Nephrology consultation was completed. He continues to require pressor agents. Recommendations: 1. Neurologic: Encephalopathy: Likely metabolic in etiology. Will continue to follow. Ammonia level was normal. [employer] imaging unremarkable. 2. Cardiovascular: History of cardiac amyloid. Per discussion with cardiology, EF appears preserved currently. Lactate is normal which is reassuring however he remains hypotensive. Will add midodrine to his regiment to see if we can get him off Tristen-Synephrine. I think his clinical progression and clinical course are consistent with progression of his cardiac amyloid which unfortunately is not amenable to acute intervention.. May consider right heart cath to evaluate pulmonary arterial pressures although I am unclear what we would do with the data. We need to initiate diuresis however his blood pressure is currently somewhat problematic. Will discuss with cardiology. If unable to get off pressors, may consider PICC line or midline in the near future. Discussion of long-term prognosis would be recommended. It appears this was briefly touched on by the cardiology team in [place]. 3. Pulmonary: No current issues. History of sleep disordered breathing. He was ineffectively treated with CPAP and BiPAP in the past. May need supplemen isaac oxygen at night. 4. ID: Leukocytosis, elevated procalcitonin, and hypotension. Underlying source not entirely clear. Given multiple etiologies for infection. Check paracentesis today for potential SBP. Will trend procalcitonin. Day #2 Zosyn and vancomycin, continue for now. 5. Renal: Appreciate nephrology consultation. BUN and creatinine slightly better today. Hyperkalemia improving. May be an effective improved renal perfusion with pressors. 6. GI: Significant ascites of unclear etiology. Await paracentesis studies. CT of the liver unremarkable. Unclear if this could represent congestive hepatopathy. Reversal of flow noted on echo 7. Endocrine: No cortisol was normal.. Glycemic control per protocol. 8. Heme-onc: Leukocytosis, possibly secondary to infection. He does have mild anemia which is worse compared to his baseline. No evidence of active ongoing bleeding. No indication for transfusion currently. Unclear significance of the MRI finding. Outpatient bone scan/PET scan may be appropriate 9. Musculoskeletal: Acute/subacute compression fractures as well as severe stenosis. Will consult orthospine Patient is critically ill at this point in time with multiorgan system dysfunction. Significant possibility for clinical deterioration exists. A total of 50 minutes in critical care time was spent in evaluation management and coordination of care for this critically ill patient. Admission and Anticipated Discharge Date Admission Date: August 02, 2023 Subjective Patient seen and examined. EMR reviewed. Discussed on multidisciplinary rounds and with bedside critical care nurse. Patient states he is actually feeling reasonably well. He does complain of some mild intermittent back pain. He is not having any abdominal discomfort. No nausea or vomiting. He denies chest pain or palpitations. His sensorium remains slightly unclear currently Review of Systems Review of Systems: All systems reviewed & are unremarkable except as noted in Subjective Physical Exam Constitutional: WD/WN, vitals as above + thin Neck: trachea midline, no thyromegaly Respiratory: normal respiratory effort, lungs clear to auscultation Cardiovascular: Rate/Rhythm: regular rate Heart Sounds: normal S1, normal S2 and + murmur Extremities: + edema Gastrointestinal (Abdomen): Inspection/Auscultation: + abdomen distended and + abdominal edema Percussion/Palpation: + ascites Musculoskeletal: Extremities: extremities normal to inspection Lymphatic: no cervical lymphadenopathy Results & Data Results & Data Vital Signs (Past 12 Hours) Vital Signs Temp Pulse Pulse Resp BP BP BP 08/03/23 06:15 60 24 08/03/23 06:15 98/58 L 08/03/23 06:01 60 16 08/03/23 06:00 96/54 L 08/03/23 05:59 60 14 08/03/23 05:45 60 16 08/03/23 05:45 92/52 L 08/03/23 05:30 60 14 08/03/23 05:30 96/58 L 08/03/23 05:15 93/52 L 08/03/23 05:15 60 17 08/03/23 05:00 60 13 08/03/23 05:00 92/53 L 08/03/23 04:45 62 17 08/03/23 04:45 97/56 L 08/03/23 04:30 92/55 L 08/03/23 04:30 60 14 08/03/23 04:15 97/52 L 08/03/23 04:15 60 15 08/03/23 04:00 98/54 L 08/03/23 04:00 60 22 08/03/23 03:45 60 19 08/03/23 03:45 102/59 L 08/03/23 03:30 89/54 L 08/03/23 03:30 60 17 08/03/23 03:15 60 15 08/03/23 03:15 94/55 L 08/03/23 03:00 58 L 14 08/03/23 03:00 91/54 L 08/03/23 02:45 60 11 L 08/03/23 02:45 95/54 L 08/03/23 02:30 60 14 08/03/23 02:30 96/58 L 08/03/23 02:15 60 18 08/03/23 02:15 92/55 L 08/03/23 02:00 60 08/03/23 02:00 92/56 L 08/03/23 01:45 60 17 08/03/23 01:45 86/46 L 08/03/23 01:40 61 20 08/03/23 01:40 83/51 L 08/03/23 01:36 60 18 08/03/23 01:36 78/50 L 08/03/23 01:31 60 13 08/03/23 01:31 78/45 L 08/03/23 01:30 37.0 C 60 08/03/23 01:15 61 23 08/03/23 01:15 90/52 L 08/03/23 01:15 60 08/03/23 01:01 20 08/03/23 01:01 94/57 L 08/03/23 01:00 22 08/03/23 00:53 91/50 L 08/03/23 00:53 64 16 08/03/23 00:49 66 13 08/03/23 00:00 106/67 08/02/23 23:15 98/69 L 08/02/23 23:00 90 100/61 08/02/23 22:50 90 110/54 L 08/02/23 22:45 84/65 L 08/02/23 22:15 91/60 L 08/02/23 22:15 83 14 08/02/23 22:00 84/64 L 08/02/23 22:00 83 16 08/02/23 21:45 89/57 L 08/02/23 21:45 83 15 08/02/23 21:41 83 14 08/02/23 21:41 93/59 L 08/02/23 21:31 83 15 08/02/23 21:31 97/56 L 08/02/23 21:30 83 14 08/02/23 21:16 86/57 L 08/02/23 21:16 83 15 Pulse Ox O2 Del Method O2 Flow Rate 08/03/23 06:15 99 08/03/23 06:15 08/03/23 06:01 98 08/03/23 06:00 08/03/23 05:59 98 08/03/23 05:45 98 08/03/23 05:45 08/03/23 05:30 98 08/03/23 05:30 08/03/23 05:15 08/03/23 05:15 97 08/03/23 05:00 98 08/03/23 05:00 08/03/23 04:45 95 08/03/23 04:45 08/03/23 04:30 08/03/23 04:30 95 08/03/23 04:15 08/03/23 04:15 98 08/03/23 04:00 08/03/23 04:00 98 08/03/23 03:45 99 08/03/23 03:45 08/03/23 03:30 08/03/23 03:30 99 08/03/23 03:15 99 08/03/23 03:15 08/03/23 03:00 97 08/03/23 03:00 08/03/23 02:45 97 08/03/23 02:45 08/03/23 02:30 98 08/03/23 02:30 08/03/23 02:15 97 08/03/23 02:15 08/03/23 02:00 96 08/03/23 02:00 08/03/23 01:45 97 08/03/23 01:45 08/03/23 01:40 97 Nasal Cannula 2 08/03/23 01:40 08/03/23 01:36 97 08/03/23 01:36 08/03/23 01:31 92 08/03/23 01:31 08/03/23 01:30 91 08/03/23 01:15 92 08/03/23 01:15 08/03/23 01:15 08/03/23 01:01 85 L 08/03/23 01:01 08/03/23 01:00 91 08/03/23 00:53 08/03/23 00:53 96 08/03/23 00:49 94 08/03/23 00:00 08/02/23 23:15 08/02/23 23:00 08/02/23 22:50 08/02/23 22:45 08/02/23 22:15 08/02/23 22:15 97 08/02/23 22:00 08/02/23 22:00 97 08/02/23 21:45 08/02/23 21:45 96 08/02/23 21:41 96 08/02/23 21:41 08/02/23 21:31 94 08/02/23 21:31 08/02/23 21:30 94 08/02/23 21:16 08/02/23 21:16 97 Critical Care Results & Data Vital Signs (Past 12 Hours) Vital Signs Temp Pulse Pulse Resp BP BP BP 08/03/23 06:15 60 24 08/03/23 06:15 98/58 L 08/03/23 06:01 60 16 08/03/23 06:00 96/54 L 08/03/23 05:59 60 14 08/03/23 05:45 60 16 08/03/23 05:45 92/52 L 08/03/23 05:30 60 14 08/03/23 05:30 96/58 L 08/03/23 05:15 93/52 L 08/03/23 05:15 60 17 08/03/23 05:00 60 13 08/03/23 05:00 92/53 L 08/03/23 04:45 62 17 08/03/23 04:45 97/56 L 08/03/23 04:30 92/55 L 08/03/23 04:30 60 14 08/03/23 04:15 97/52 L 08/03/23 04:15 60 15 08/03/23 04:00 98/54 L 08/03/23 04:00 60 22 08/03/23 03:45 60 19 08/03/23 03:45 102/59 L 08/03/23 03:30 89/54 L 08/03/23 03:30 60 17 08/03/23 03:15 60 15 08/03/23 03:15 94/55 L 08/03/23 03:00 58 L 14 08/03/23 03:00 91/54 L 08/03/23 02:45 60 11 L 08/03/23 02:45 95/54 L 08/03/23 02:30 60 14 08/03/23 02:30 96/58 L 08/03/23 02:15 60 18 08/03/23 02:15 92/55 L 08/03/23 02:00 60 14 08/03/23 02:00 92/56 L 08/03/23 01:45 60 17 08/03/23 01:45 86/46 L 08/03/23 01:40 61 20 08/03/23 01:40 83/51 L 08/03/23 01:36 60 18 08/03/23 01:36 78/50 L 08/03/23 01:31 60 13 08/03/23 01:31 78/45 L 08/03/23 01:30 37.0 C 60 14 08/03/23 01:15 61 23 08/03/23 01:15 90/52 L 08/03/23 01:15 60 08/03/23 01:01 20 08/03/23 01:01 94/57 L 08/03/23 01:00 08/03/23 00:53 91/50 L 08/03/23 00:53 64 16 08/03/23 00:49 66 13 08/03/23 00:00 106/67 08/02/23 23:15 98/69 L 08/02/23 23:00 90 100/61 08/02/23 22:50 90 110/54 L 08/02/23 22:45 84/65 L 08/02/23 22:15 91/60 L 08/02/23 22:15 83 14 08/02/23 22:00 84/64 L 08/02/23 22:00 83 16 08/02/23 21:45 89/57 L 08/02/23 21:45 83 15 08/02/23 21:41 83 14 08/02/23 21:41 93/59 L 08/02/23 21:31 83 15 08/02/23 21:31 97/56 L 08/02/23 21:30 83 14 08/02/23 21:16 86/57 L 08/02/23 21:16 83 15 Pulse Ox O2 Del Method O2 Flow Rate 08/03/23 06:15 99 08/03/23 06:15 08/03/23 06:01 98 08/03/23 06:00 08/03/23 05:59 98 08/03/23 05:45 98 08/03/23 05:45 08/03/23 05:30 98 08/03/23 05:30 08/03/23 05:15 08/03/23 05:15 97 08/03/23 05:00 98 08/03/23 05:00 08/03/23 04:45 95 08/03/23 04:45 08/03/23 04:30 08/03/23 04:30 95 08/03/23 04:15 08/03/23 04:15 98 08/03/23 04:00 08/03/23 04:00 98 08/03/23 03:45 99 08/03/23 03:45 08/03/23 03:30 08/03/23 03:30 99 08/03/23 03:15 99 08/03/23 03:15 08/03/23 03:00 97 08/03/23 03:00 08/03/23 02:45 97 08/03/23 02:45 08/03/23 02:30 98 08/03/23 02:30 08/03/23 02:15 97 08/03/23 02:15 08/03/23 02:00 96 08/03/23 02:00 08/03/23 01:45 97 08/03/23 01:45 08/03/23 01:40 97 Nasal Cannula 2 08/03/23 01:40 08/03/23 01:36 97 08/03/23 01:36 08/03/23 01:31 92 08/03/23 01:31 08/03/23 01:30 91 08/03/23 01:15 92 08/03/23 01:15 08/03/23 01:15 08/03/23 01:01 85 L 08/03/23 01:01 08/03/23 01:00 91 08/03/23 00:53 08/03/23 00:53 96 08/03/23 00:49 94 08/03/23 00:00 08/02/23 23:15 08/02/23 23:00 08/02/23 22:50 08/02/23 22:45 08/02/23 22:15 08/02/23 22:15 97 08/02/23 22:00 08/02/23 22:00 97 08/02/23 21:45 08/02/23 21:45 96 08/02/23 21:41 96 08/02/23 21:41 08/02/23 21:31 94 08/02/23 21:31 08/02/23 21:30 94 08/02/23 21:16 08/02/23 21:16 97 Lab & Micro Results (Past 24 Hours) RBC 2.96 M/uL (4.70-6.10) L 08/03/23 WBC 20.26 K/ul (4.8-10.8) H 08/03/23 Hgb 10.1 g/dl (14.0-18.0) L 08/03/23 Hct 29.0 % (42.0-52.0) L 08/03/23 MCV 98.0 fL (80.0-100.0) 08/03/23 MCH 34.1 pg (25.0-34.0) H 08/03/23 MCHC 34.8 g/dL (32.0-36.0) 08/03/23 RDW Standard Deviation 52.6 fL (36.4-46.3) H 08/03/23 RDW Coefficient of Variation 14.7 % (11.5-14.5) H 08/03/23 Plt Count 288 K/uL (130-400) 08/03/23 MPV 9.6 fL (9.4-12.4) 08/03/23 Neutrophils (%) (Auto) 89.3 % 08/03/23 Lymphocytes (%) (Auto) 3.2 % 08/03/23 Monocytes # (Auto) 1.13 K/uL (0.11-0.59) H 08/03/23 Eosinophils # (Auto) 0.00 K/uL (0.00-0.50) 08/03/23 Immature Granulocyte % (Auto) 1.7 % 08/03/23 Neutrophils # (Auto) 18.09 K/uL (1.40-6.50) H 08/03/23 Lymphocytes # (Auto) 0.65 K/uL (1.20-3.40) L 08/03/23 Monocytes # (Auto) 1.13 K/uL (0.11-0.59) H 08/03/23 Eosinophils # (Auto) 0.00 K/uL (0.00-0.50) 08/03/23 Basophils # (Auto) 0.04 K/uL (0.00-0.20) 08/03/23 Immature Granulocyte # (Auto) 0.35 K/uL (0.01-0.20) H 08/02 Na 135 mmol/L (136-145) L 08/03/23 K 5.3 mmol/L (3.5-5.1) H 08/03/23 Cl 109 mmol/L (98-107) H 08/03/23 CO2 18 mmol/L (21-32) L 08/03/23 Anion Gap 8 (3-11) 08/03/23 BUN 68 mg/dl (6-23) H 08/03/23 Creatinine 1.31 mg/dl (0.6-1.4) 08/03/23 Estimated GFR ( Amer) 59.2 ml/min 08/03/23 Estimated GFR (Non-Af Amer) 51.1 ml/min 08/03/23 BUN/Creatinine Ratio 51.9 (10-20) H 08/03/23 Glu 97 mg/dl (70-99(Fasting)) 08/03/23 Ca 8.6 mg/dl (8.6-10.3) 08/03/23 Phosphorus Level 3.0 mg/dl (2.5-4.9) 08/03/23 Total Bilirubin 1.5 mg/dl (0.2-1.0) H 08/03/23 AST 19 U/L (13-39) 08/03/23 ALT 14 U/L (7-52) 08/03/23 Alkaline Phosphatase 129 U/L (34-104) H 08/03/23 TP 6.1 gm/dl (6.0-8.3) 08/03/23 Albumin 3.2 gm/dl (3.4-5.0) L 08/03/23 Globulin 2.9 gm/dl (2.5-4.0) 08/03/23 Albumin/Globulin Ratio 1.1 (0.9-2) 08/03/23 Mg 2.1 mg/dl (1.7-2.4) 08/03/23 04:38 Calcium Level 8.6 mg/dl (8.6-10.3) 08/03/23 04:38 Prothromb Time International Ratio 1.4 (0.9-1.1) H 08/02/23 13 :02 Venous Blood pH 7.35 (7.36-7.41) L 08/02/23 22:27 Venous Blood Partial Pressure CO2 37 mmHg (38-50) L 08/02/23 22 :27 Venous Blood Partial Pressure O2 23 mmHg 08/02/23 22:27 Venous Blood HCO3 20 mmol/L 08/02/23 22:27 Venous Blood Base Excess -4.7 mEq/L 08/02/23 22:27 Venous Blood Oxygen Saturation < 60.0 % 08/02/23 22:27 Arterial Blood pH 7.37 (7.35-7.45) 08/02/23 16:06 Arterial Blood Partial Pressure CO2 27 mmHg (35-46) L 08/02/23 16:06 Arterial Blood Partial Pressure O2 104 mmHg (80-95) H 08/02/23 16:06 Arterial Blood HCO3 16 mmol/L (19-24) L 08/02/23 16:06 Arterial Blood Base Excess -8.1 mEq/L (-9-1.8) 08/02/23 16:06 Arterial Blood Oxygen Saturation 98.6 % (90-95) H 08/02/23 16:0 6 Blood Gas Oxygen Given ROOM AIR 08/02/23 16:06 Fabian Test Pos (Pos) 08/02/23 16:06 Diagnostic Findings (Past 24 Hours) Chest X-Ray 08/02/23 11:55 XR chest 1V portable CLINICAL HISTORY: weakness COMPARISON STUDY: Chest radiograph March 18, 2023. FINDINGS: There is no pneumothorax or pleural effusion. Cardiomegaly is unchanged. A left subclavian pacer is in place. There is no radiographic evidence for pulmonary edema. There is no consolidation. A mildly displaced fracture of the anterior right sixth rib is new since prior chest radiograph of March 18, 2023. IMPRESSION: 1. Stable cardiomegaly. No evidence for pulmonary edema. 2. Mildly displaced fracture of the anterior right sixth rib. The appearance favors a subacute fracture. No pneumothorax. ACT 112: Negative or not required by law. Electronically signed by: Joshua Piña M.D. 08/02/2023 12:50 PM Abdomen/Pelvis CT 08/02/23 12:[address] WITHOUT CONTRAST CT DOSE: 2687.54 mGy.cm HISTORY: weakness, renal failure TECHNIQUE: Multiaxial CT images of the abdomen and pelvis were performed without contrast. A dose lowering technique was utilized adhering to the principles of ALARA. COMPARISON STUDY: Abdomen and pelvis CT 03/10/2021. FINDINGS: The lung bases will be reported on the same day chest CT. Bibasilar linear densities favor subsegmental atelectasis. There are trace bilateral pleural effusions. The heart remains enlarged. Pacemaker wires are noted. No pneumoperitoneum. No pneumatosis. Slightly displaced distal sacral fracture which is likely subacute. There is a mild to moderate superior endplate compression fracture at T12 which appears subacute. Multiple bilateral rib fractures most pronounced on the right which also appear to represent healing/subacute fractures. No definite acute fractures identified. Diffuse body wall edema. The gallbladder surgically absent. The unenhanced liver, pancreas, spleen, and adrenal glands unremarkable. Bilateral renal cysts again noted. The dominant 7.5 cm cyst within the left upper pole demonstrates mural calcification. There is a punctate stone within the lower pole the left kidney. No hydronephrosis. Decreased attenuation within the blood pool suggesting underlying anemia. No retroperitoneal lymphadenopathy. Normal caliber abdominal aorta. No pelvic lymphadenopathy. There is a large amount of ascites which has progressed. Normal bladder. The prostate gland remains enlarged. Suboptimal evaluation for bowel pathology due to the lack of intravenous and oral contrast. However, there is no definite bowel wall thickening or obstruction. Colonic diverticulosis. No evidence for acute diverticulitis. Visualized appendix is unremarkable. IMPRESSION: 1. Interval progression of the fluid overload. This includes a large amount of ascites which has progressed. 2. No definite bowel wall thickening or obstruction. 3. Left-sided nephrolithiasis. No ureteral stones. No hydronephrosis. 4. Multiple subacute/healing fractures as described above. No acute fractures. 5. Additional findings as described above. ACT 112: Negative or not required by law. Electronically signed by: Caleb Hogan M.D. 08/02/2023 2:[address] 08/02/23 12:34 CT chest diagnostic wo con CLINICAL HISTORY: weakness, renal failure TECHNIQUE: Multidetector row helical CT of the chest was performed. Coronal and sagittal reformations were obtained. Automated dose lowering techniques and/or adjustment according to patient size were utilized for this exam. Comparison: Comparison is made to chest radiograph 08/02/2023 FINDINGS: Lungs and pleura: Atelectasis and mild interlobular septal thickening are seen in the dependent portions of the lungs. Heart and pericardium: There is cardiomegaly without evidence of pericardial effusion. Vessels: Pulmonary trunk measures 37 mm. Gas is seen in the subclavian vein, external jugular vein, and pulmonary trunk, likely due to intravenous injection. Mediastinum and idalia: Subcentimeter lymph nodes are seen. Chest wall and lower neck: Unremarkable. Abdomen: For findings below the diaphragm, please refer to CT of the abdomen dated the same. Bones: Degenerative changes in the thoracic spine. Subacute appearing fracture of the lateral right sixth, seventh, and eighth ribs. IMPRESSION: 1. Cardiomegaly with possible moderate pulmonary edema. 2. Subacute right rib fractures. ACT 112: Negative or not required by law. Electronically signed by: Nino Ray M.D. 08/02/2023 2:[address] 08/02/23 12:34 CT OF THE HEAD WITHOUT CONTRAST CLINICAL HISTORY: Weakness. COMPARISON STUDY: Head CT March 18, 2023. TECHNIQUE: Helical axial images of the head were obtained without IV contrast. Automated exposure control was utilized for the study. A dose lowering technique was utilized adhering to the principles of ALARA. FINDINGS: No acute intracranial hemorrhage, midline shift or mass effect is present. The ventricular system is unremarkable. The basal cisterns are patent. No extra-axial collections are present. There are no findings to suggest acute dural sinus thrombosis or acute territorial infarct. The appearance of the brain is unchanged. Multiple sites of venous gas are noted. IMPRESSION: 1. No acute intracranial findings. 2. Multifocal venous gas, likely related to IV insertion. ACT 112: Negative or not required by law. Electronically signed by: Joshua Piña M.D. 08/02/2023 2:35 PM Thoracic Spine MRI 08/02/23 19:19 CR Exam(s): MRI T SPINE W/WO Contrast IV Amt: 8cc gadavist EXAM: MR Thoracic Spine Without and With Intravenous Contrast CLINICAL HISTORY: Reason for exam: epidural abscess rule out, low back pain x 1 month. leg weakness. history of sciatica. TECHNIQUE: Magnetic resonance images of the thoracic spine without and with intravenous contrast in multiple planes. Technical issues resulting in moderate signal dropout particularly in the lower thoracic spine. CONTRAST: Patient received 8cc gadavist of IV contrast COMPARISON: CT abdomen pelvis 08/02/23 FINDINGS: Vertebrae: Stable, moderate, biconcave compression fracture of T12, minimal retropulsion superior endplate. Mild edema suggest that this is acute or subacute, and subacute fractures can be associated with avascular necrosis. There is significant technical artifact limiting evaluation. Mild heterogeneous marrow signal, specifically at T2 left pedicle, there is an enhancing mass that is concerning for bony metastatic disease. More subtle lesions are seen T8, T9 and T10 without corresponding CT abnormality that could reflect an atypical hemangioma, though metastatic disease difficult to entirely exclude. No discitis or osteomyelitis. Discs/spinal canal/neural foramina: Moderate, central T7-8 disc protrusion, without spinal stenosis. No other focal disc disease or spinal stenosis. Spinal cord: Grossly normal signal. No abnormal enhancement. Soft tissues: Bilateral pleural effusions and ascites, stable. No definite epidural abscess or abnormal enhancement. IMPRESSION: 1. Moderate biconcave compression T12 with edema, may reflect an acute or subacute fracture that may be associated with avascular necrosis, correlate clinically. 2. Possible bony metastatic disease, most notably left T2 pedicle. Correlate clinically, and if necessary with nuclear medicine bone scan imaging or PET CT as clinically indicated. 3. Moderate central disc protrusion T7-8. 4. No discitis, osteomyelitis, epidural abscess, spinal stenosis, abnormal cord signal or abnormal enhancement. 5. Significant technical artifact limits detail. Consider follow-up if symptoms persist or progress. Communications: Verify Receipt with Nurse Electronically signed by: Enedina Wallis M.D. 08/03/23 01:58 AM Lumbar Spine MRI 08/02/23 21:01 Exam(s): MRI L SPINE W/WO Contrast IV Amt: 8cc gadavist EXAM: MR Lumbar Spine Without and With Intravenous Contrast CLINICAL HISTORY: Reason for exam: epidural abscess r/o. TECHNIQUE: Magnetic resonance images of the lumbar spine without and with intravenous contrast in multiple planes. Significant limited evaluation due to signal dropout. CONTRAST: Patient received 8cc gadavist of IV contrast COMPARISON: CT abdomen pelvis done earlier the same day. FINDINGS: Vertebrae: Moderate T12 compression deformity, with underlying edema, nonspecific, see separately dictated thoracic spine MRI report. Mild superior endplate edema and deformity of L1, likely acute or subacute fracture. There is no worrisome metastatic disease in the lumbar spine. No discitis or osteomyelitis. Conus: Terminates normally. No abnormal enhancement. Soft tissues: No obvious psoas or epidural abscess. Significant artifact limits evaluation. Ascites and pleural effusions, better seen on CT. DISCS/SPINAL CANAL/NEURAL FORAMINA: L1-L2: Mild degenerative disc disease. Severe facet hypertrophy and borderline central spinal stenosis. L2-L3: Moderate central spinal stenosis due to moderate disc protrusion, disc space narrowing, severe facet hypertrophy. There is moderate to severe bilateral foraminal stenosis. L3-L4: Severe disc space narrowing, large disc herniation, severe facet and ligamentum flavum hypertrophy, results in severe central spinal stenosis and severe bilateral foraminal stenosis. L4-L5: Severe disc space narrowing, with moderate circumferential disc protrusion, with inferior migration on the right, severe facet hypertrophy, and severe right foraminal and right lateral recess stenosis. Moderate central spinal stenosis and left foraminal stenosis. L5-S1: Severe disc space narrowing with moderate slightly rightward disc bulge and osteophyte, and severe bilateral foraminal stenosis. No significant central spinal stenosis, though potential for right S1 impingement syndrome, correlate clinically. IMPRESSION: 1. Moderate compression fracture T12, see separately dictated thoracic spine MRI. 2. Mild superior endplate edema and compression fracture L1, likely acute or subacute. 3. Severe diffuse degenerative disc disease including severe central spinal stenosis L3-4, moderate central spinal stenosis L2-3 at L4-5 and multilevel lateral recess and foraminal stenosis, as detailed above. 4. No discitis, osteomyelitis, or epidural abscess, though there is significant technical artifact limiting evaluation. Consider follow-up if symptoms persist. 5. No bony metastatic disease in the lumbar spine. Electronically signed by: Enedina Wallis M.D. 08/03/23 01:59 AM I & O Totals 24 Hours 08/02/23 08/03/23 08/04/23 06:59 06:59 06:59 Intake Total 4086.64 / 4086.64 Output Total 2900 / 2900 500 / 500 Balance 1186.64 / 1186.64 -500 / -500 Cumulative 08/02/23 11:08 thru 08/03/23 08:00 Intake Total 4086.64 Output Total 3400 Balance 686.64 RT Ventilator Mngmt (Last Documented) Ventilator Ordered Settings Respiratory Rate 24 08/03/23 06:15 Ventilator - PT Measurements Respiratory Rate 24 Coding Level of Care Code 26964 CRITICAL CARE 1ST 30-74M Diagnoses Low back pain M54.50 Septic shock A41.9; R65.21 Fluid overload E87.70 Hypervolemia type: unspecified Ascites R18.8 Incontinence R32 (3) Fluid overload Hypervolemia type: unspecified Qualified Code(s): E87.70 - Fluid overload, unspecified
[2023-08-03 09:16] LABS: Albumin Peritoneal Fluid 2.6 gm/dl
[2023-08-03 09:21] LABS: Total Protein Peritoneal Fluid 4.6 gm/dl
[2023-08-03 09:21] LABS: A calco-baum cmplx NotReported Not Detected (NotDetected); Bact fragilis Not Reported Not Detected (NotDetected); Blood Culture Id Panel See PCR Comment (NotDetected); C auris Not Reported Not Detected (NotDetected); Calbicans Not Reported Not Detected (NotDetected); Candida glabrata Not Reported Not Detected (NotDetected); Candida krusei Not Reported Not Detected (NotDetected); Cneoformans/gatti Not Reported Not Detected (NotDetected); Cparapsilosis Not Reported Not Detected (NotDetected); E cloacae compx Not Reported Not Detected (NotDetected); Efaecalis Not Reported Not Detected (NotDetected); Efaecium Not Reported Not Detected (NotDetected); Enterobacterales Not Reported Not Detected (NotDetected); Escherichia coli Not Reported Not Detected (NotDetected); H influenzae Not Reported Not Detected (NotDetected); K aerogenes Not Reported Not Detected (NotDetected); Koxytoca Not Reported Not Detected (NotDetected); Kpneumoniae grp Not Reported Not Detected (NotDetected); Lmonocyt Not Reported Not Detected (NotDetected); N meningitidis Not Reported Not Detected (NotDetected); P aeruginosa Not Reported Not Detected (NotDetected); Proteus spp Not Reported Not Detected (NotDetected); Salmonella spp Not Reported Not Detected (NotDetected); Smarcescens Not Reported Not Detected (NotDetected); Staph lugdunensis Not Reported Not Detected (NotDetected); Staph spp. Not Reported DETECTED (NotDetected); Staphaureus Not Reported DETECTED (NotDetected); Staphepi Not Reported Not Detected (NotDetected); Staphylococcus spp. DETECTED (NotDetected); Stenmaltophilia Not Reported Not Detected (NotDetected); Strep agal(GrpB) Not Reported Not Detected (NotDetected); Strep pneum Not Reported Not Detected (NotDetected); Strep pyog (GrpA) Not Reported Not Detected (NotDetected); Strep spp Not Reported Not Detected (NotDetected); mecAC+MREJ Resistant Gene MRSA Not Detected (NotDetected)
[2023-08-03 09:33] LABS: Appearance Peritoneal Fluid Clear; Color Peritoneal Fluid Yellow; Lymphocytes, Fluid 13 %; Mono,Macrophage,Mesothelial 70 %; Neutrophils, Fluid 17 %; RBC Peritoneal Fluid Auto < 2000 /uL; WBC Peritoneal Fluid Auto 78 /ul (0-300)
[2023-08-03] MEDS: MIDODRINE HCL 10 MG TAB PO SCH (11:42)
--- NOTE | 2023-08-03 12:43 | Pharmacy Report ---
Pharmacy PK ABX Note - Date of Service August 03, 2023 - Assessment and Plan Assessment * 78 year old M receiving VANCOMYCIN + MEROPENEM for treatment of septic shock secondary to MSSA bacteremia, possible SBP, possible discitis/epidural abscess . * Pertinent microbiologic data includes: negative MRSA Nasal Swab, 1 bottle of 1 set of BLCXs growing gram + cocci in clusters, corresponding BCID2 identified MSSA, ascites fluid WBC 78 neut 17%; negative Lyme screen, negative smear for anaplasmosis and babesia, tickborne illness serologies pending * FILI noted on admission, baseline SCr ~1 * ID has been consulted - if MSSA bacteremia outcomes may be better if beta- lactam therapy can be used rather than vancomycin Plan Vancomycin * Loading dose: 2000 mg IV x 1 58 @1700 * Maintenance dose: 750 mg IV every 12 hours * Regimen is predicted to achieve target AUC/REED of 400-600 mg/L.hr * Trough level ordered for: 08/04/23 prior to 3rd maint dose Meropenem (x 48 hrs empiric only) * currently ordered 500mg IV Q 8 hrs, could consider escalating dose to 500mg IV Q 6 hrs if renal fxn continues to improve Pharmacy will continue to follow and will adjust dose/frequency as necessary. Thank you. Pharmacy has transitioned to AUC monitoring for vancomycin. AUC/REED is the preferred PK/PD target and is associated with decreased risk of nephrotoxicity compared to traditional trough targets.
--- NOTE | 2023-08-03 13:03 | Cardiology Progress Note ---
Date of Service August 03, 2023 Assessment & Plan (1) Septic shock: (2) Cardiac amyloidosis: (3) Cardiomyopathy: (4) Atrial fibrillation, permanent: (5) Heart failure with mid-range ejection fraction: (6) Heart block: (7) S/P placement of cardiac pacemaker: Plan ASSESSMENT/PLAN: 1. Septic shock: Still on phenylephrine as per critical care team. 1 of 2 blood cultures have resulted in positive for gram-positive cocci. On broad- spectrum antibiotic therapy. As per critical care team and primary hospitalist service. 2. Heart failure with midrange EF: He appears hypervolemic. Recommend diuresis when blood pressure would tolerate. Can start with Lasix 40 mg IV or if blood pressure soft, 20 mg IV. Try to encourage net negative fluid balance. Spironolactone and losartan have been discontinued as he presented with hypotension and hyperkalemia. Hold metoprolol succinate given hypotension. Would consider not resuming metoprolol succinate unless necessary for a rate control strategy. Typical heart failure regimen ICD for primary prevention is not indicated. 3. 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 Difficult situation. Volume management as able. Follows at [facility] with Dr. Ruiz. On tafamidis. Poor prognosis. 4. Cardiomyopathy: Plan as above. Biventricular systolic dysfunction on echo. 5. Permanent atrial fibrillation/flutter: On anticoagulation for stroke risk reduction. With today's creatinine improvement, recommend Eliquis 5 mg twice daily. Based on echo findings and also pacemaker interrogation, he is in atrial flutter. Rhythm control likely very difficult with amyloid. Continue rate control. Currently paced. 6. Complete heart block s/p pacemaker: Ventricular pacing. 7. Bacteremia: Blood cultures still preliminary and one is pending. As per critical care team and hospitalist service. 8. Disposition: Overall mentation improved from yesterday but still critically ill. Poor prognosis. Discussed with Dr. Russell of the critical care team and also Dr. Torres, his primary coal picker. Recommend palliative care consultation. Options are limited in regards to his cardiac amyloidosis. [facility] heart failure specialist was contacted via telephone and no further advanced measures only available at tertiary care centers were recommended or felt to be options, if/when needed. 40 minutes critical care time, which includes [id number] time, counseling patient, coordinating care, discussing with other providers, reviewing chart. Admission and Anticipated Discharge Date Admission Date: August 02, 2023 Subjective He was seen today around noon time. He denies orthopnea, chest pain, shortness of breath, syncope, lightheadedness. He believes that his edema has improved. He immediately recognized me today and did not recall everything that occurred in the ER with yesterday's consultation. He was alone in his hospital room. Physical Exam Physical Exam: Gen.: No acute distress. Alert and oriented. HEENT: Anicteric sclera. Neck: Hepatojugular reflux. Cardiac: Regular. Normal S1-S2. 1/6 systolic murmur. Pulmonary: Clear to auscultation bilaterally without wheezes, rales, or rhonchi. Abdomen: Soft, nontender, protuberant, with normoactive bowel sounds. No bruits noted. Extremities: 2+ radial pulses bilaterally. 2+ bilateral lower extremity edema to the knees. 1+ edema above the knees to the hips bilaterally in the dependent areas. No cyanosis. Results & Data Vital Signs (Past 12 Hours) Vital Signs Temp Pulse Resp BP Pulse Ox O2 Del Method O2 Flow Rate 08/03/23 12:22 36.8 C 08/03/23 12:00 97/65 L 08/03/23 12:00 75 17 87 L 08/03/23 11:45 105/68 08/03/23 11:45 67 12 97 08/03/23 11:31 64 20 95 08/03/23 11:31 105/69 08/03/23 11:30 63 15 92 08/03/23 11:15 64 15 94 08/03/23 11:15 99/63 L 08/03/23 11:00 96 08/03/23 10:46 60 17 98 08/03/23 10:46 111/78 08/03/23 10:30 109/67 08/03/23 10:30 82 20 97 08/03/23 10:15 109/66 08/03/23 10:15 61 17 96 Room Air 08/03/23 10:00 104/64 08/03/23 10:00 63 13 99 Room Air 08/03/23 09:45 109/68 08/03/23 09:45 61 13 100 Room Air 08/03/23 09:37 36.9 C 08/03/23 09:30 61 13 100 08/03/23 09:30 105/67 08/03/23 09:15 107/60 08/03/23 09:15 66 18 98 08/03/23 09:00 87/55 L 08/03/23 09:00 65 18 100 08/03/23 08:45 62 15 98 08/03/23 08:45 98/61 L 08/03/23 08:30 97/60 L 08/03/23 08:30 60 16 98 08/03/23 08:15 103/61 08/03/23 08:15 60 18 08/03/23 08:00 60 23 98 08/03/23 08:00 102/64 08/03/23 08:00 62 08/03/23 07:46 95/61 L 08/03/23 07:46 61 21 96 08/03/23 07:31 122/64 08/03/23 07:31 78 15 95 08/03/23 07:30 62 18 97 08/03/23 07:16 60 14 97 08/03/23 07:16 98/59 L 08/03/23 07:00 61 16 95 08/03/23 07:00 97/50 L 08/03/23 06:46 60 16 98 08/03/23 06:46 91/54 L 08/03/23 06:45 83/54 L 08/03/23 06:45 60 15 98 08/03/23 06:30 60 16 99 08/03/23 06:30 94/55 L 08/03/23 06:15 60 24 99 08/03/23 06:15 98/58 L 08/03/23 06:01 60 16 98 08/03/23 06:00 96/54 L 08/03/23 05:59 60 14 98 08/03/23 05:45 60 16 98 08/03/23 05:45 92/52 L 08/03/23 05:30 60 14 98 08/03/23 05:30 96/58 L 08/03/23 05:15 93/52 L 08/03/23 05:15 60 17 97 08/03/23 05:00 60 13 98 08/03/23 05:00 92/53 L 08/03/23 04:45 62 17 95 08/03/23 04:45 97/56 L 08/03/23 04:30 92/55 L 08/03/23 04:30 60 14 95 08/03/23 04:15 97/52 L 08/03/23 04:15 60 15 98 08/03/23 04:00 98/54 L 08/03/23 04:00 60 22 98 08/03/23 03:45 60 19 99 08/03/23 03:45 102/59 L 08/03/23 03:30 89/54 L 08/03/23 03:30 60 17 99 08/03/23 03:15 60 15 99 08/03/23 03:15 94/55 L 08/03/23 03:00 58 L 14 97 08/03/23 03:00 91/54 L 08/03/23 02:45 60 11 L 97 08/03/23 02:45 95/54 L 08/03/23 02:30 60 14 98 08/03/23 02:30 96/58 L 08/03/23 02:15 60 18 97 08/03/23 02:15 92/55 L 08/03/23 02:00 60 14 96 08/03/23 02:00 92/56 L 08/03/23 01:45 60 17 97 08/03/23 01:45 86/46 L 08/03/23 01:40 61 20 97 Nasal Cannula 2 08/03/23 01:40 83/51 L 08/03/23 01:36 60 18 97 08/03/23 01:36 78/50 L 08/03/23 01:31 60 13 92 08/03/23 01:31 78/45 L 08/03/23 01:30 37.0 C 60 14 91 08/03/23 01:15 61 23 92 08/03/23 01:15 90/52 L 08/03/23 01:15 60 08/03/23 01:01 20 85 L 08/03/23 01:01 94/57 L Intake & Output 08/01/23 08/02/23 08/03/23 08/04/23 06:59 06:59 06:59 06:59 Intake Total 4086.64 / 4086.64 1241 / 1241 Output Total 2900 / 2900 1550 / 1550 Balance 2759.64 / 1186.64 -309 / -309 Weight 187 lb 9.814 oz 187 lb 9.814 oz Laboratory Results Laboratory Results - last 24 hr 08/02/23 08/02/23 08/02/23 11:30 13:55 15:22 WBC RBC Hgb Hct MCV MCH MCHC RDW Std Deviation RDW Coeff of Mariel Plt Count MPV Immature Gran % (Auto) Neut % (Auto) Lymph % (Auto) Wells % (Auto) Eos % (Auto) Baso % (Auto) Reticulocyte % (Auto) Neut # (Auto) Lymph # (Auto) Wells # (Auto) Eos # (Auto) Baso # (Auto) Reticulocyte # Immature Gran # (Auto) APTT PTT Ratio ABG pH ABG pCO2 ABG pO2 ABG HCO3 ABG O2 Saturation ABG Base Excess Fabian Test VBG pH VBG pCO2 VBG pO2 VBG HCO3 VBG O2 Saturation VBG Base Excess Oxygen Given Sodium Potassium 6.5 H* Chloride Carbon Dioxide Anion Gap BUN Creatinine Est Cr Clr Drug Dosing Est GFR ( Amer) Est GFR (Non-Af Amer) BUN/Creatinine Ratio Glucose POC Glucose 199 H Lactate Calcium Phosphorus Magnesium Iron 51 Transferrin 214 Ferritin 393.2 H Total Bilirubin AST ALT Alkaline Phosphatase Ammonia Troponin I High Sens 82.5 H* Total Protein Albumin Globulin Albumin/Globulin Ratio Vitamin B12 473 Folate 12.06 Procalcitonin TSH 6.200 H Free T4 1.40 Random Cortisol Urine Color Yellow Urine Appearance Turbid A Urine pH 5.0 Ur Specific [place] 1.015 Urine Protein Trace H Urine Glucose (UA) Negative Urine Ketones Negative Urine Blood 3+ H Urine Nitrite Negative Urine Bilirubin Negative Urine Urobilinogen Negative Ur Leukocyte Esterase 1+ H Urine WBC (Auto) 0-5 Urine RBC (Auto) >20 H U Hyaline Cast (Auto) 0-2 U Epithel Cells (Auto) 0-2 Urine Bacteria (Auto) None Seen Fluid Neutrophils % Fluid Lymphocytes % Fluid Meso/Macro/Wells % Fluid Comment Peritoneal Color Peritoneal Appearance Peritoneal WBC (Auto) Peritoneal RBC (Auto) Peritoneal Tot Protein Peritoneal Albumin Nasal Screen MRSA (PCR) Random Vancomycin Staphylococcus sp PCR Staph aureus (PCR) mecA/C & MREJ Resist Gene Bld Cult ID Panel PCR 08/02/23 08/02/23 08/02/23 16:06 16:09 16:30 WBC RBC Hgb Hct MCV MCH MCHC RDW Std Deviation RDW Coeff of Mariel Plt Count MPV Immature Gran % (Auto) Neut % (Auto) Lymph % (Auto) Wells % (Auto) Eos % (Auto) Baso % (Auto) Reticulocyte % (Auto) 2.14 H Neut # (Auto) Lymph # (Auto) Wells # (Auto) Eos # (Auto) Baso # (Auto) Reticulocyte # 0.060 Immature Gran # (Auto) APTT 33 H PTT Ratio 1.2 ABG pH 7.37 ABG pCO2 27 L ABG pO2 104 H ABG HCO3 16 L ABG O2 Saturation 98.6 H ABG Base Excess -8.1 Fabian Test Pos VBG pH VBG pCO2 VBG pO2 VBG HCO3 VBG O2 Saturation VBG Base Excess Oxygen Given ROOM AIR Sodium 134 L Potassium 5.7 H Chloride 107 Carbon Dioxide 18 L Anion Gap 9 BUN 85 H Creatinine 1.68 H Est Cr Clr Drug Dosing 39.6 Est GFR ( Amer) 43.8 Est GFR (Non-Af Amer) 37.8 BUN/Creatinine Ratio 50.6 H Glucose 55 L POC Glucose Lactate 1.2 Calcium 9.5 Phosphorus Magnesium Iron Transferrin Ferritin Total Bilirubin 2.2 H AST 24 ALT 17 Alkaline Phosphatase 148 H Ammonia 11.0 L Troponin I High Sens 91.5 H* Total Protein 7.3 Albumin 3.6 Globulin 3.7 Albumin/Globulin Ratio 1.0 Vitamin B12 Folate Procalcitonin 1.85 H TSH Free T4 Random Cortisol 34.79 Urine Color Urine Appearance Urine pH Ur Specific [place] Urine Protein Urine Glucose (UA) Urine Ketones Urine Blood Urine Nitrite Urine Bilirubin Urine Urobilinogen Ur Leukocyte Esterase Urine WBC (Auto) Urine RBC (Auto) U Hyaline Cast (Auto) U Epithel Cells (Auto) Urine Bacteria (Auto) Fluid Neutrophils % Fluid Lymphocytes % Fluid Meso/Macro/Wells % Fluid Comment Peritoneal Color Peritoneal Appearance Peritoneal WBC (Auto) Peritoneal RBC (Auto) Peritoneal Tot Protein Peritoneal Albumin Nasal Screen MRSA (PCR) Random Vancomycin Staphylococcus sp PCR DETECTED A Staph aureus (PCR) DETECTED A mecA/C & MREJ Resist Gene MRSA Not Detected Bld Cult ID Panel PCR See PCR Comment 08/02/23 08/02/23 08/02/23 16:58 17:48 20:18 WBC RBC Hgb Hct MCV MCH MCHC RDW Std Deviation RDW Coeff of Mariel Plt Count MPV Immature Gran % (Auto) Neut % (Auto) Lymph % (Auto) Wells % (Auto) Eos % (Auto) Baso % (Auto) Reticulocyte % (Auto) Neut # (Auto) Lymph # (Auto) Wells # (Auto) Eos # (Auto) Baso # (Auto) Reticulocyte # Immature Gran # (Auto) APTT PTT Ratio ABG pH ABG pCO2 ABG pO2 ABG HCO3 ABG O2 Saturation ABG Base Excess Fabian Test VBG pH VBG pCO2 VBG pO2 VBG HCO3 VBG O2 Saturation VBG Base Excess Oxygen Given Sodium Potassium Chloride Carbon Dioxide Anion Gap BUN Creatinine Est Cr Clr Drug Dosing Est GFR ( Amer) Est GFR (Non-Af Amer) BUN/Creatinine Ratio Glucose POC Glucose 52 L* 110 H 96 Lactate Calcium Phosphorus Magnesium Iron Transferrin Ferritin Total Bilirubin AST ALT Alkaline Phosphatase Ammonia Troponin I High Sens Total Protein Albumin Globulin Albumin/Globulin Ratio Vitamin B12 Folate Procalcitonin TSH Free T4 Random Cortisol Urine Color Urine Appearance Urine pH Ur Specific [place] Urine Protein Urine Glucose (UA) Urine Ketones Urine Blood Urine Nitrite Urine Bilirubin Urine Urobilinogen Ur Leukocyte Esterase Urine WBC (Auto) Urine RBC (Auto) U Hyaline Cast (Auto) U Epithel Cells (Auto) Urine Bacteria (Auto) Fluid Neutrophils % Fluid Lymphocytes % Fluid Meso/Macro/Wells % Fluid Comment Peritoneal Color Peritoneal Appearance Peritoneal WBC (Auto) Peritoneal RBC (Auto) Peritoneal Tot Protein Peritoneal Albumin Nasal Screen MRSA (PCR) Random Vancomycin Staphylococcus sp PCR Staph aureus (PCR) mecA/C & MREJ Resist Gene Bld Cult ID Panel PCR 08/02/23 08/02/23 08/03/23 22:27 Unknown 00:55 WBC RBC Hgb Hct MCV MCH MCHC RDW Std Deviation RDW Coeff of Mariel Plt Count MPV Immature Gran % (Auto) Neut % (Auto) Lymph % (Auto) Wells % (Auto) Eos % (Auto) Baso % (Auto) Reticulocyte % (Auto) Neut # (Auto) Lymph # (Auto) [place] # (Auto) Eos # (Auto) Baso # (Auto) Reticulocyte # Immature Gran # (Auto) APTT PTT Ratio ABG pH ABG pCO2 ABG pO2 ABG HCO3 ABG O2 Saturation ABG Base Excess Fabian Test VBG pH 7.35 L VBG pCO2 37 L VBG pO2 23 VBG HCO3 20 VBG O2 Saturation < 60.0 VBG Base Excess -4.7 Oxygen Given Sodium 134 L Potassium 5.8 H Chloride 108 H Carbon Dioxide 20 L Anion Gap 6 BUN 76 H Creatinine 1.63 H Est Cr Clr Drug Dosing 40.8 Est GFR ( Amer) 45.4 Est GFR (Non-Af Amer) 39.2 BUN/Creatinine Ratio 46.6 H Glucose 118 H POC Glucose 87 Lactate Calcium 8.7 Phosphorus Magnesium Iron Transferrin Ferritin Total Bilirubin 1.9 H AST 21 ALT 14 Alkaline Phosphatase 131 H Ammonia Troponin I High Sens Total Protein 6.4 Albumin 3.3 L Globulin 3.1 Albumin/Globulin Ratio 1.1 Vitamin B12 Folate Procalcitonin TSH Free T4 Random Cortisol Urine Color Urine Appearance Urine pH Ur Specific [place] Urine Protein Urine Glucose (UA) Urine Ketones Urine Blood Urine Nitrite Urine Bilirubin Urine Urobilinogen Ur Leukocyte Esterase Urine WBC (Auto) Urine RBC (Auto) U Hyaline Cast (Auto) U Epithel Cells (Auto) Urine Bacteria (Auto) Fluid Neutrophils % Fluid Lymphocytes % Fluid Meso/Macro/Wells % Fluid Comment Peritoneal Color Peritoneal Appearance Peritoneal WBC (Auto) Peritoneal RBC (Auto) Peritoneal Tot Protein Peritoneal Albumin Nasal Screen MRSA (PCR) Negative Random Vancomycin Staphylococcus sp PCR Staph aureus (PCR) mecA/C & MREJ Resist Gene Bld Cult ID Panel PCR 08/03/23 08/03/23 08/03/23 00:56 04:38 04:38 WBC 20.26 H RBC 2.96 L Hgb 10.1 L Hct 29.0 L MCV 98.0 MCH 34.1 H MCHC 34.8 RDW Std Deviation 52.6 H RDW Coeff of Mariel 14.7 H Plt Count 288 MPV 9.6 Immature Gran % (Auto) 1.7 Neut % (Auto) 89.3 Lymph % (Auto) 3.2 [place] % (Auto) 5.6 Eos % (Auto) 0.0 Baso % (Auto) 0.2 Reticulocyte % (Auto) Neut # (Auto) 18.09 H Lymph # (Auto) 0.65 L [place] # (Auto) 1.13 H Eos # (Auto) 0.00 Baso # (Auto) 0.04 Reticulocyte # Immature Gran # (Auto) 0.35 H APTT PTT Ratio ABG pH ABG pCO2 ABG pO2 ABG HCO3 ABG O2 Saturation ABG Base Excess Fabian Test VBG pH VBG pCO2 VBG pO2 VBG HCO3 VBG O2 Saturation VBG Base Excess Oxygen Given Sodium 135 L Potassium 5.3 H Chloride 109 H Carbon Dioxide 18 L Anion Gap 8 BUN 68 H Creatinine 1.31 D Est Cr Clr Drug Dosing 50.8 Est GFR ( Amer) 59.2 Est GFR (Non-Af Amer) 51.1 BUN/Creatinine Ratio 51.9 H Glucose 97 POC Glucose Lactate Calcium 8.6 Phosphorus 3.0 Magnesium 2.1 Iron Transferrin Ferritin Total Bilirubin 1.5 H AST 19 ALT 14 Alkaline Phosphatase 129 H Ammonia Troponin I High Sens 93.3 H* 98.7 H* Cancelled Total Protein 6.1 Albumin 3.2 L Globulin 2.9 Albumin/Globulin Ratio 1.1 Vitamin B12 Folate Procalcitonin TSH Free T4 Random Cortisol Urine Color Urine Appearance Urine pH Ur Specific [place] Urine Protein Urine Glucose (UA) Urine Ketones Urine Blood Urine Nitrite Urine Bilirubin Urine Urobilinogen Ur Leukocyte Esterase Urine WBC (Auto) Urine RBC (Auto) U Hyaline Cast (Auto) U Epithel Cells (Auto) Urine Bacteria (Auto) Fluid Neutrophils % Fluid Lymphocytes % Fluid Meso/Macro/Wells % Fluid Comment Peritoneal Color Peritoneal Appearance Peritoneal WBC (Auto) Peritoneal RBC (Auto) Peritoneal Tot Protein Peritoneal Albumin Nasal Screen MRSA (PCR) Random Vancomycin 10.8 Staphylococcus sp PCR Staph aureus (PCR) mecA/C & MREJ Resist Gene Bld Cult ID Panel PCR 08/03/23 08/03/23 08/03/23 07:26 11:35 12:18 WBC RBC Hgb Hct MCV MCH MCHC RDW Std Deviation RDW Coeff of Mariel Plt Count MPV Immature Gran % (Auto) Neut % (Auto) Lymph % (Auto) [place] % (Auto) Eos % (Auto) Baso % (Auto) Reticulocyte % (Auto) Neut # (Auto) Lymph # (Auto) [place] # (Auto) Eos # (Auto) Baso # (Auto) Reticulocyte # Immature Gran # (Auto) APTT PTT Ratio ABG pH ABG pCO2 ABG pO2 ABG HCO3 ABG O2 Saturation ABG Base Excess Fabian Test VBG pH VBG pCO2 VBG pO2 VBG HCO3 VBG O2 Saturation VBG Base Excess Oxygen Given Sodium Potassium Chloride Carbon Dioxide Anion Gap BUN Creatinine Est Cr Clr Drug Dosing Est GFR ( Amer) Est GFR (Non-Af Amer) BUN/Creatinine Ratio Glucose POC Glucose 92 90 Lactate Calcium Phosphorus Magnesium Iron Transferrin Ferritin Total Bilirubin AST ALT Alkaline Phosphatase Ammonia Troponin I High Sens 109.5 H* Total Protein Albumin Globulin Albumin/Globulin Ratio Vitamin B12 Folate Procalcitonin TSH Free T4 Random Cortisol Urine Color Urine Appearance Urine pH Ur Specific [place] Urine Protein Urine Glucose (UA) Urine Ketones Urine Blood Urine Nitrite Urine Bilirubin Urine Urobilinogen Ur Leukocyte Esterase Urine WBC (Auto) Urine RBC (Auto) U Hyaline Cast (Auto) U Epithel Cells (Auto) Urine Bacteria (Auto) Fluid Neutrophils % Fluid Lymphocytes % Fluid Meso/Macro/Wells % Fluid Comment Peritoneal Color Peritoneal Appearance Peritoneal WBC (Auto) Peritoneal RBC (Auto) Peritoneal Tot Protein Peritoneal Albumin Nasal Screen MRSA (PCR) Random Vancomycin Staphylococcus sp PCR Staph aureus (PCR) mecA/C & MREJ Resist Gene Bld Cult ID Panel PCR 08/03/23 Unknown WBC RBC Hgb Hct MCV MCH MCHC RDW Std Deviation RDW Coeff of Mariel Plt Count MPV Immature Gran % (Auto) Neut % (Auto) Lymph % (Auto) Wells % (Auto) Eos % (Auto) Baso % (Auto) Reticulocyte % (Auto) Neut # (Auto) Lymph # (Auto) Wells # (Auto) Eos # (Auto) Baso # (Auto) Reticulocyte # Immature Gran # (Auto) APTT PTT Ratio ABG pH ABG pCO2 ABG pO2 ABG HCO3 ABG O2 Saturation ABG Base Excess Fabian Test VBG pH VBG pCO2 VBG pO2 VBG HCO3 VBG O2 Saturation VBG Base Excess Oxygen Given Sodium Potassium Chloride Carbon Dioxide Anion Gap BUN Creatinine Est Cr Clr Drug Dosing Est GFR ( Amer) Est GFR (Non-Af Amer) BUN/Creatinine Ratio Glucose POC Glucose Lactate Calcium Phosphorus Magnesium Iron Transferrin Ferritin Total Bilirubin AST ALT Alkaline Phosphatase Ammonia Troponin I High Sens Total Protein Albumin Globulin Albumin/Globulin Ratio Vitamin B12 Folate Procalcitonin TSH Free T4 Random Cortisol Urine Color Urine Appearance Urine pH Ur Specific [place] Urine Protein Urine Glucose (UA) Urine Ketones Urine Blood Urine Nitrite Urine Bilirubin Urine Urobilinogen Ur Leukocyte Esterase Urine WBC (Auto) Urine RBC (Auto) U Hyaline Cast (Auto) U Epithel Cells (Auto) Urine Bacteria (Auto) Fluid Neutrophils % 17 Fluid Lymphocytes % 13 Fluid Meso/Macro/Wells % 70 Fluid Comment Peritoneal Color Yellow Peritoneal Appearance Clear Peritoneal WBC (Auto) 78 Peritoneal RBC (Auto) < 2000 Peritoneal Tot Protein 4.6 Peritoneal Albumin 2.6 Nasal Screen MRSA (PCR) Random Vancomycin Staphylococcus sp PCR Staph aureus (PCR) mecA/C & MREJ Resist Gene Bld Cult ID Panel PCR Diagnostic Findings Labs reviewed and notable for elevated high-sensitivity troponin, up to 109, mildly elevated INR, mild hyperkalemia but improved from presentation, improved renal function, abnormal TSH, worsened leukocytosis, anemia. Telemetry personally reviewed: Paced. Pacemaker interrogation was performed overnight and reported to be in atrial flutter chronically. Device adjustments were made by [employer] rep at that time. Telemetry personally reviewed: Paced. Echo 08/02/2023: EF 45 to 50%. Mild global hypokinesis. Severe concentric LVH. Mildly reduced RV systolic function. Mild RV dilation. Moderate biatrial dilation. Mild MR. Trace AI. Small pericardial effusion. Pleural effusion. RVSP 39. Critical care note reviewed. Lumbar spine MRI 08/02/2023 T12 compression fracture. L1 compression fracture. Severe diffuse degenerative disc disease. Thoracic spine MRI 08/02/2023: T12 compression. Possible bony metastatic disease, most notably left T2 pedicle. Moderate central disc protrusion of T7-8. Blood cultures 08/02/2023: 1 is still pending. The other is positive for gram- positive cocci in clusters Medications Administered Current Inpatient Medications Acetaminophen (Acetaminophen 325 Mg Tab) 650 mg PO Q4H PRN PRN Reason: Pain or Fever Stop: 09/01/23 18:13 Apixaban (Apixaban 2.5 Mg Tab) 2.5 mg PO BID EUDARDO Stop: 09/01/23 20:59 Last Admin: 08/03/23 00:52 Dose: 2.5 mg Dextrose (Dextrose 50% 50 Ml Syringe) 25 - 50 ml IV UD PRN; Protocol PRN Reason: Hypoglycemia Protocol Stop: 09/01/23 17:01 Glucagon (Glucagon For Inj 1 Mg Vial) 1 mg SQ UD PRN; Protocol PRN Reason: Hypoglycemia Protocol Stop: 09/01/23 17:01 Glucose (Glucose 40% Gel 15 Gm Tube) 15 - 30 gm PO UD PRN; Protocol PRN Reason: Hypoglycemia Protocol Stop: 09/01/23 17:01 Glucose (Glucose 10 Tab/Tube) 4 - 8 tab PO UD PRN; Protocol PRN Reason: Hypoglycemia Treatment Stop: 09/01/23 17:01 Phenylephrine HCl (Phenylephrine/Nss) 25 mg in 250 mls @ 24 mls/hr IV .[id number] [facility]; Protocol Stop: 09/01/23 13:44 Last Titration: 08/03/23 13:38 Dose: Infused Meropenem 500 mg/ Syringe 10 mls @ 2 mls/min IV Q8H [facility]; Protocol Stop: 08/05/23 00:59 Last Admin: 08/03/23 11:41 Dose: 2 mls/min Vancomycin HCl 750 mg/ Sodium (Chloride) 265 mls @ 200 mls/hr IV Q12H [facility] Stop: 08/17/23 07:59 Last Infusion: 08/03/23 09:00 Dose: Infused Metoprolol Succinate (Metoprolol Succ 25mg Ext Rel Tab) 12.5 mg PO DAILY [facility] Stop: 09/02/23 08:59 Midodrine (Midodrine Hcl 10 Mg Tab) 10 mg PO TID@0800,1200,1700 EDUARDO Stop: 09/02/23 11:59 Last Admin: 08/03/23 11:42 Dose: 10 mg Miscellaneous (Icu Protocol For Hyperglycemia) 1 each N/A ACHS [facility] Stop: 08/04/23 20:59 Last Admin: 08/03/23 11:38 Dose: Not Given Miscellaneous (Carbohydrates For Hypoglycemia ) 15 - 30 gm PO UD PRN PRN Reason: Hypoglycemia Protocol Stop: 09/01/23 17:01 Miscellaneous Information (Vancomycin Consult Active) 1 each N/A UD PRN PRN Reason: Consult Stop: 09/01/23 16:03 Sodium Zirconium Cyclosilicate (Sodium Zirconium Cyclosilicate 10 Gm Packet) 10 gm PO TID EDUARDO Stop: 08/03/23 14:01 Last Admin: 08/03/23 08:52 Dose: 10 gm Tafamidis Meglumine (Tafamidis Meglumine 20 Mg Cap) 20 mg PO HS [facility] Stop: 09/02/23 20:59 PG Care Time/CCT Total # of Minutes Spent Total Time Spent with Patient: Total time spent is greater than 50% in coordination of care (as documented) at patient's floor/unit and/or counseling patient: Critical Care Time: Yes Total Critical Care Time: 40 Coding Level of Care Code 88508 CRITICAL CARE 1ST 30-74M Diagnoses Septic shock A41.9; R65.21 Cardiac amyloidosis E85.4; I43 Cardiomyopathy I42.9 Cardiomyopathy type: unspecified Atrial fibrillation, permanent I48.21 Heart failure with mid-range ejection fraction I50.22 Heart block I45.9 S/P placement of cardiac pacemaker Z95.0 Additional Codes Critical Care Time - Critical Care Time: Yes ([id number]) (3) Cardiomyopathy Cardiomyopathy type: unspecified Qualified Code(s): I42.9 - Cardiomyopathy, unspecified
--- NOTE | 2023-08-03 13:30 | Infectious Disease Consult ---
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 He has a history of progressive gait instability for which she follows with neurology. He endorses a fall a few months ago but not recently. He denies any recent trauma to the back, fever, chills, change in bowel or urinary habits, shortness of breath, nausea, vomiting. He reports some weight loss. In the ED he was afebrile but hypotensive with SBPs in the 70s80s. Labs noted for a WBC of 15 K--> 20.26K, BUN 92, creatinine 1.83, procalcitonin 1.85. Blood cultures obtained: MSSA on bio fire. TTE with small pericardial effusion without evidence of tamponade physiology. No valve vegetations. EF 45 to 50%. CTAB showed a large amount of ascites. Thoracic spine shows T12 moderate compression which may be associated with avascular necrosis. Possible bony me tastatic disease notably at the left T2 pedicle. No discitis, osteomyelitis, epidural abscess.. Lumbar spine shows mild L1 compression fracture and with severe diffuse degenerative disc disease with severe central spinal stenosis at L3-L4. He was started on pressors (Tristen-Synephrine). He is currently receiving meropenem and vancomycin. ID consulted for bacteremia. He was evaluated in the ICU. On my initial exam he complains of gluteal cleft pain and bilateral heel pain left greater than right. He denies any open draining wounds Micro: Blood cultures 08/01 1 out of 4 bottles positive for MSSA ([facility]) GPC in clusters Urine culture 08/02 pending Blood culture 08/02pending Ascites fluid 08/02 few WBCs seen, no organisms seen, cultures pending Antibiotics: Vancomycin 08/01ongoing Meropenem 08/01-ongoing #Septic shock #MSSA bacteremia #Ascites #Heel/Foot and gluteal cleft SSTI/ cellulitis #Multiple skin abnormalities #PPM #Acute on chronic back pain # Leukocytosis #FILI MSSA bacteremia is likely secondary to a skin source. He has multiple skin abnormalities and areas of cellulitis on exam. Left heel/ankle and gluteal cleft cellulitis. He has several area of skin break down. Pacemaker in place but no s/o infection on exam.TTE with no valvular vegetations. No other hardware or prosthetics. He has acute on chronic back pain No evidence of osteomyelitis/discitis/spinal abscess on spine MRI imaging. Imaging shows T12 compression which may be associated with avascular necrosis. Possible bony metastatic disease notably at the left T2 pedicles and lumbar spinal stenosis. He has ascites on exam but is not febrile and abdomen w/o tenderness pain. Ascites fluid with 78 WBCs. I doubt SBP. He has no central lines . Recommendations. Continue Meropenem, pending ascites, cx; Discontinued vancomycin since MSSA on BC biofire Can likely deescalate Ancef once ascites culture back Obtain B/L LE/ heel xray Follow UP BC sensi ( MSSA per BCID) Follow up Repeat BC Wound care IF BC persistently positive, obtain CORONA Consider nuclear medicine bone scan or PET CT givne spinal imaging abnormalities D/W Dr Mcnulty Thank you for this consult. ID will continue to follow Ras Whitman MD, MPH Infectious Disease [facility] Call [phone] with questions Consultation Information Consultation was provided via telemedicine using two-way real-time interactive telecommunication between the patient and the telemedicine provider. For the duration of the visit, the provider was performing the assessment from a different facility than the patient. This includesuse of bluetooth stethoscope forauscultationperformed by the telepresenter that the telemedicine provider can hear if described in the physical exam. 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 He has a history of progressive gait instability for which she follows with neurology. He endorses a fall a few months ago but not recently. He denies any recent trauma to the back, fever, chills, change in bowel or urinary habits, shortness of breath, nausea, vomiting. He reports some weight loss. In the ED he was afebrile but hypotensive with SBPs in the 70s80s. Labs noted for a WBC of 15 K--> 20.26K, BUN 92, creatinine 1.83, procalcitonin 1.85. Blood cultures obtained: MSSA on bio fire. TTE with small pericardial effusion without evidence of tamponade physiology. No valve vegetations. EF 45 to 50%. CTAB showed a large amount of ascites. Thoracic spine shows T12 moderate compression which may be associated with avascular necrosis. Possible bony metastatic disease notably at the left T2 pedicle. No discitis, osteomyelitis, epidural abscess.. Lumbar spine shows mild L1 compression fracture and with severe diffuse degenerative disc disease with severe central spinal stenosis at L3-L4. He was started on pressors (Tristen-Synephrine). He is currently receiving meropenem and vancomycin. ID consulted for bacteremia. He was evaluated in the ICU> On my initial exam he complains of gluteal cleft pain and bilateral heel pain left greater than right. He denies any open draining wounds. Allergies Allergy/AdvReac Type Severity Reaction Status Date / Time No Known Allergies Allergy Verified 06/05/23 13:38 Home Medications Medication Instructions Recorded Confirmed Type metoprolol succinate 25 mg 12.5 mg (1/2 x 25 mg) PO DAILY #45 09/07/22 08/02/23 Rx tablet,extended release 24 hr tabs losartan 25 mg tablet 25 mg PO DAILY #90 tabs 09/27/22 08/02/23 Rx tafamidis meglumine 20 mg capsule 20 mg PO DAILY 02/24/23 08/02/23 History (Vyndaqel) torsemide 10 mg tablet 50 mg PO UD 06/05/23 08/02/23 History acetaminophen 325 mg capsule 325 mg PO QID PRN Pain 07/14/23 08/02/23 History (Tylenol) methocarbamol 500 mg tablet 500 mg PO TID #90 tabs 07/14/23 08/02/23 Rx apixaban 5 mg tablet (Eliquis) 5 mg PO BID #180 tabs 04/25/24 05/08/24 Rx gabapentin 300 mg capsule 300 mg PO BID #60 caps 07/24/23 08/02/23 Rx spironolactone 25 mg tablet 25 mg PO UD 08/02/23 08/02/23 History Patient History Medical History Atrial fibrillation, permanent 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 Nunez 03-11-2021 Social History Smoking Status: Never smoker Hx Alcohol Use: Yes Alcohol type: wine Hx Substance Use: No Preferred Language: Swiss Communication Ability: Effective Visual Impairment: No Limitations Curing Supervisor Required: No Beliefs That Will Affect Care: None marital status: Current Living Situation: Spouse How many Children do You have: 2 Feels Safe at Home: Yes Safety Concerns: Feels Safe At This Time Assistive Devices: None Review of System A 10 point ROS obtained. Pertinent positives as per HPI Physical Exam Physical Exam: Gen- NAD HEENT- Anicteric sclera, EOMI, hearing intact Neck- supple Lung- No increased work of breathing, No chest wall tenderness . PPM noted in JD chest , not tender Skin- multiple skin abnormalities. scalp abrasions, BL UE skin tears and bruising, L>R. BL heel TTP , erythema, edema , scabs, abrasions ( L>R)L ankle, Hyper trophic toe nails , Gluteal cleft wound/ excoriation . ++Tender to palpation. No drainage or deep wound. PIV in RUE Abd- soft , distended, fluid wave, Not tender. - Ortega in place, No CVA or suprapubic tenderness MSK- No spinal or paraspinal tenderness Results & Data Vital Signs (Past 12 Hours) Vital Signs Temp Pulse Resp BP Pulse Ox O2 Del Method O2 Flow Rate 08/03/23 12:22 36.8 C 08/03/23 12:00 97/65 L 08/03/23 12:00 75 17 87 L 08/03/23 11:45 105/68 08/03/23 11:45 67 12 97 05/09/24 11:31 64 20 95 08/03/23 11:31 105/69 08/03/23 11:30 63 15 92 08/03/23 11:15 64 15 94 08/03/23 11:15 99/63 L 08/03/23 11:00 96 08/03/23 10:46 60 17 98 08/03/23 10:46 111/78 08/03/23 10:30 109/67 08/03/23 10:30 82 20 97 08/03/23 10:15 109/66 08/03/23 10:15 61 17 96 Room Air 08/03/23 10:00 104/64 08/03/23 10:00 63 13 99 Room Air 08/03/23 09:45 109/68 08/03/23 09:45 61 13 100 Room Air 08/03/23 09:37 36.9 C 08/03/23 09:30 61 13 100 08/03/23 09:30 105/67 08/03/23 09:15 107/60 08/03/23 09:15 66 18 98 08/03/23 09:00 87/55 L 08/03/23 09:00 65 18 100 08/03/23 08:45 62 15 98 08/03/23 08:45 98/61 L 08/03/23 08:30 97/60 L 08/03/23 08:30 60 16 98 08/03/23 08:15 103/61 08/03/23 08:15 60 18 08/03/23 08:00 60 23 98 08/03/23 08:00 102/64 08/03/23 08:00 62 08/03/23 07:46 95/61 L 08/03/23 07:46 61 21 96 08/03/23 07:31 122/64 08/03/23 07:31 78 15 95 08/03/23 07:30 62 18 97 08/03/23 07:16 60 14 97 08/03/23 07:16 98/59 L 08/03/23 07:00 61 16 95 08/03/23 07:00 97/50 L 08/03/23 06:46 60 16 98 08/03/23 06:46 91/54 L 08/03/23 06:45 83/54 L 08/03/23 06:45 60 15 98 08/03/23 06:30 60 16 99 08/03/23 06:30 94/55 L 08/03/23 06:15 60 24 99 08/03/23 06:15 98/58 L 08/03/23 06:01 60 16 98 08/03/23 06:00 96/54 L 08/03/23 05:59 60 14 98 08/03/23 05:45 60 16 98 08/03/23 05:45 92/52 L 08/03/23 05:30 60 14 98 08/03/23 05:30 96/58 L 08/03/23 05:15 93/52 L 08/03/23 05:15 60 17 97 08/03/23 05:00 60 13 98 08/03/23 05:00 92/53 L 08/03/23 04:45 62 17 95 08/03/23 04:45 97/56 L 08/03/23 04:30 92/55 L 08/03/23 04:30 60 14 95 08/03/23 04:15 97/52 L 08/03/23 04:15 60 15 98 08/03/23 04:00 98/54 L 08/03/23 04:00 60 22 98 08/03/23 03:45 60 19 99 08/03/23 03:45 102/59 L 08/03/23 03:30 89/54 L 08/03/23 03:30 60 17 99 08/03/23 03:15 60 15 99 08/03/23 03:15 94/55 L 08/03/23 03:00 58 L 14 97 08/03/23 03:00 91/54 L 08/03/23 02:45 60 11 L 97 08/03/23 02:45 95/54 L 08/03/23 02:30 60 14 98 08/03/23 02:30 96/58 L 08/03/23 02:15 60 18 97 08/03/23 02:15 92/55 L 08/03/23 02:00 60 14 96 08/03/23 02:00 92/56 L 08/03/23 01:45 60 17 97 08/03/23 01:45 86/46 L 08/03/23 01:40 61 20 97 Nasal Cannula 2 08/03/23 01:40 83/51 L 08/03/23 01:36 60 18 97 08/03/23 01:36 78/50 L 08/03/23 01:31 60 13 92 08/03/23 01:31 78/45 L 08/03/23 01:30 37.0 C 60 14 91 Laboratory Results Laboratory Results - last 48 hr 08/02/23 08/02/23 08/02/23 11:30 12:22 13:02 WBC 15.19 H RBC 2.78 L Hgb 9.3 L POC Hgb 9.9 L Hct 27.9 L POC Hct 29 L MCV 100.4 H MCH 33.5 MCHC 33.3 RDW Std Deviation 54.3 H RDW Coeff of Mariel 14.6 H Plt Count 231 MPV 9.8 Immature Gran % (Auto) 0.7 Neut % (Auto) 93.6 Lymph % (Auto) 1.7 Bracken % (Auto) 3.8 Eos % (Auto) 0.0 Baso % (Auto) 0.2 Reticulocyte % (Auto) Neut # (Auto) 14.22 H Lymph # (Auto) 0.26 L Bracken # (Auto) 0.57 Eos # (Auto) 0.00 Baso # (Auto) 0.03 Reticulocyte # Immature Gran # (Auto) 0.11 PT Cancelled 14.6 H INR Cancelled 1.4 H APTT PTT Ratio ABG pH ABG pCO2 ABG pO2 ABG HCO3 ABG O2 Saturation ABG Base Excess Fabian Test VBG pH VBG pCO2 VBG pO2 VBG HCO3 VBG O2 Saturation VBG Base Excess Oxygen Given POC Sodium 132 L Sodium 132 L POC Potassium 6.2 H* Potassium 6.5 H* POC Chloride 108 Chloride 105 Carbon Dioxide 17 L POC Total CO2 17 L Anion Gap 10 POC Anion Gap 15.0 L POC BUN 88 H BUN 92 H Creatinine 1.83 H POC Creatinine 1.8 H Est Cr Clr Drug Dosing Not Reportable Est GFR ( Amer) 39.5 Est GFR (Non-Af Amer) 34.1 BUN/Creatinine Ratio 50.3 H Glucose 83 POC Glucose POC Glucose (other) 84 Lactate Uric Acid 7.0 Calcium 9.5 POC Ioniz Calcium Sofiya 1.24 Phosphorus 3.5 Magnesium 2.3 Iron 51 Transferrin 214 Ferritin 393.2 H Total Bilirubin 2.1 H AST 26 ALT 17 Alkaline Phosphatase 153 H Ammonia Total Creatine Kinase 135 Troponin I High Sens 82.5 H* Total Protein 7.5 Albumin 3.8 Globulin 3.7 Albumin/Globulin Ratio 1.0 Vitamin B12 473 Folate 12.06 Procalcitonin TSH 6.200 H Free T4 1.40 Random Cortisol Urine Color Urine Appearance Urine pH Ur Specific [place] Urine Protein Urine Glucose (UA) Urine Ketones Urine Blood Urine Nitrite Urine Bilirubin Urine Urobilinogen Ur Leukocyte Esterase Urine WBC (Auto) Urine RBC (Auto) U Hyaline Cast (Auto) U Epithel Cells (Auto) Urine Bacteria (Auto) Fluid Neutrophils % Fluid Lymphocytes % Fluid Meso/Macro/Bracken % Fluid Comment Peritoneal Color Peritoneal Appearance Peritoneal WBC (Auto) Peritoneal RBC (Auto) Peritoneal Tot Protein Peritoneal Albumin Nasal Screen MRSA (PCR) Random Vancomycin Anaplasma Smear See Comment Babesia Smear See Comment Lyme Disease Screen Negative Staphylococcus sp PCR Staph aureus (PCR) mecA/C & MREJ Resist Gene Bld Cult ID Panel PCR 08/02/23 08/02/23 08/02/23 13:55 15:22 16:06 WBC RBC Hgb POC Hgb Hct POC Hct MCV MCH MCHC RDW Std Deviation RDW Coeff of Mariel Plt Count MPV Immature Gran % (Auto) Neut % (Auto) Lymph % (Auto) Bracken % (Auto) Eos % (Auto) Baso % (Auto) Reticulocyte % (Auto) Neut # (Auto) Lymph # (Auto) Bracken # (Auto) Eos # (Auto) Baso # (Auto) Reticulocyte # Immature Gran # (Auto) PT INR APTT PTT Ratio ABG pH 7.37 ABG pCO2 27 L ABG pO2 104 H ABG HCO3 16 L ABG O2 Saturation 98.6 H ABG Base Excess -8.1 Fabian Test Pos VBG pH VBG pCO2 VBG pO2 VBG HCO3 VBG O2 Saturation VBG Base Excess Oxygen Given ROOM AIR POC Sodium Sodium POC Potassium Potassium POC Chloride Chloride Carbon Dioxide POC Total CO2 Anion Gap POC Anion Gap POC BUN BUN Creatinine POC Creatinine Est Cr Clr Drug Dosing Est GFR ( Amer) Est GFR (Non-Af Amer) BUN/Creatinine Ratio Glucose POC Glucose 199 H POC Glucose (other) Lactate Uric Acid Calcium POC Ioniz Calcium Sofiya Phosphorus Magnesium Iron Transferrin Ferritin Total Bilirubin AST ALT Alkaline Phosphatase Ammonia Total Creatine Kinase Troponin I High Sens Total Protein Albumin Globulin Albumin/Globulin Ratio Vitamin B12 Folate Procalcitonin TSH Free T4 Random Cortisol Urine Color Yellow Urine Appearance Turbid A Urine pH 5.0 Ur Specific [place] 1.015 Urine Protein Trace H Urine Glucose (UA) Negative Urine Ketones Negative Urine Blood 3+ H Urine Nitrite Negative Urine Bilirubin Negative Urine Urobilinogen Negative Ur Leukocyte Esterase 1+ H Urine WBC (Auto) 0-5 Urine RBC (Auto) >20 H U Hyaline Cast (Auto) 0-2 U Epithel Cells (Auto) 0-2 Urine Bacteria (Auto) None Seen Fluid Neutrophils % Fluid Lymphocytes % Fluid Meso/Macro/Bracken % Fluid Comment Peritoneal Color Peritoneal Appearance Peritoneal WBC (Auto) Peritoneal RBC (Auto) Peritoneal Tot Protein Peritoneal Albumin Nasal Screen MRSA (PCR) Random Vancomycin Anaplasma Smear Babesia Smear Lyme Disease Screen Staphylococcus sp PCR Staph aureus (PCR) mecA/C & MREJ Resist Gene Bld Cult ID Panel PCR 08/02/23 08/02/23 08/02/23 16:09 16:30 16:58 WBC RBC Hgb POC Hgb Hct POC Hct MCV MCH MCHC RDW Std Deviation RDW Coeff of Mariel Plt Count MPV Immature Gran % (Auto) Neut % (Auto) Lymph % (Auto) Bracken % (Auto) Eos % (Auto) Baso % (Auto) Reticulocyte % (Auto) 2.14 H Neut # (Auto) Lymph # (Auto) Bracken # (Auto) Eos # (Auto) Baso # (Auto) Reticulocyte # 0.060 Immature Gran # (Auto) PT INR APTT 33 H PTT Ratio 1.2 ABG pH ABG pCO2 ABG pO2 ABG HCO3 ABG O2 Saturation ABG Base Excess Fabian Test VBG pH VBG pCO2 VBG pO2 VBG HCO3 VBG O2 Saturation VBG Base Excess Oxygen Given POC Sodium Sodium 134 L POC Potassium Potassium 5.7 H POC Chloride Chloride 107 Carbon Dioxide 18 L POC Total CO2 Anion Gap 9 POC Anion Gap POC BUN BUN 85 H Creatinine 1.68 H POC Creatinine Est Cr Clr Drug Dosing 39.6 Est GFR ( Amer) 43.8 Est GFR (Non-Af Amer) 37.8 BUN/Creatinine Ratio 50.6 H Glucose 55 L POC Glucose 52 L* POC Glucose (other) Lactate 1.2 Uric Acid Calcium 9.5 POC Ioniz Calcium Sofiya Phosphorus Magnesium Iron Transferrin Ferritin Total Bilirubin 2.2 H AST 24 ALT 17 Alkaline Phosphatase 148 H Ammonia 11.0 L Total Creatine Kinase Troponin I High Sens 91.5 H* Total Protein 7.3 Albumin 3.6 Globulin 3.7 Albumin/Globulin Ratio 1.0 Vitamin B12 Folate Procalcitonin 1.85 H TSH Free T4 Random Cortisol 34.79 Urine Color Urine Appearance Urine pH Ur Specific [place] Urine Protein Urine Glucose (UA) Urine Ketones Urine Blood Urine Nitrite Urine Bilirubin Urine Urobilinogen Ur Leukocyte Esterase Urine WBC (Auto) Urine RBC (Auto) U Hyaline Cast (Auto) U Epithel Cells (Auto) Urine Bacteria (Auto) Fluid Neutrophils % Fluid Lymphocytes % Fluid Meso/Macro/Bracken % Fluid Comment Peritoneal Color Peritoneal Appearance Peritoneal WBC (Auto) Peritoneal RBC (Auto) Peritoneal Tot Protein Peritoneal Albumin Nasal Screen MRSA (PCR) Random Vancomycin Anaplasma Smear Babesia Smear Lyme Disease Screen Staphylococcus sp PCR DETECTED A Staph aureus (PCR) DETECTED A mecA/C & MREJ Resist Gene MRSA Not Detected Bld Cult ID Panel PCR See PCR Comment 08/02/23 08/02/23 08/02/23 17:48 20:18 22:27 WBC RBC Hgb POC Hgb Hct POC Hct MCV MCH MCHC RDW Std Deviation RDW Coeff of Mariel Plt Count MPV Immature Gran % (Auto) Neut % (Auto) Lymph % (Auto) Bracken % (Auto) Eos % (Auto) Baso % (Auto) Reticulocyte % (Auto) Neut # (Auto) Lymph # (Auto) Bracken # (Auto) Eos # (Auto) Baso # (Auto) Reticulocyte # Immature Gran # (Auto) PT INR APTT PTT Ratio ABG pH ABG pCO2 ABG pO2 ABG HCO3 ABG O2 Saturation ABG Base Excess Fabian Test VBG pH 7.35 L VBG pCO2 37 L VBG pO2 23 VBG HCO3 20 VBG O2 Saturation < 60.0 VBG Base Excess -4.7 Oxygen Given POC Sodium Sodium 134 L POC Potassium Potassium 5.8 H POC Chloride Chloride 108 H Carbon Dioxide 20 L POC Total CO2 Anion Gap 6 POC Anion Gap POC BUN BUN 76 H Creatinine 1.63 H POC Creatinine Est Cr Clr Drug Dosing 40.8 Est GFR ( Amer) 45.4 Est GFR (Non-Af Amer) 39.2 BUN/Creatinine Ratio 46.6 H Glucose 118 H POC Glucose 110 H 96 POC Glucose (other) Lactate Uric Acid Calcium 8.7 POC Ioniz Calcium Sofiya Phosphorus Magnesium Iron Transferrin Ferritin Total Bilirubin 1.9 H AST 21 ALT 14 Alkaline Phosphatase 131 H Ammonia Total Creatine Kinase Troponin I High Sens Total Protein 6.4 Albumin 3.3 L Globulin 3.1 Albumin/Globulin Ratio 1.1 Vitamin B12 Folate Procalcitonin TSH Free T4 Random Cortisol Urine Color Urine Appearance Urine pH Ur Specific [place] Urine Protein Urine Glucose (UA) Urine Ketones Urine Blood Urine Nitrite Urine Bilirubin Urine Urobilinogen Ur Leukocyte Esterase Urine WBC (Auto) Urine RBC (Auto) U Hyaline Cast (Auto) U Epithel Cells (Auto) Urine Bacteria (Auto) Fluid Neutrophils % Fluid Lymphocytes % Fluid Meso/Macro/Bracken % Fluid Comment Peritoneal Color Peritoneal Appearance Peritoneal WBC (Auto) Peritoneal RBC (Auto) Peritoneal Tot Protein Peritoneal Albumin Nasal Screen MRSA (PCR) Random Vancomycin Anaplasma Smear Babesia Smear Lyme Disease Screen Staphylococcus sp PCR Staph aureus (PCR) mecA/C & MREJ Resist Gene Bld Cult ID Panel PCR 08/02/23 08/03/23 08/03/23 Unknown 00:55 00:56 WBC RBC Hgb POC Hgb Hct POC Hct MCV MCH MCHC RDW Std Deviation RDW Coeff of Mariel Plt Count MPV Immature Gran % (Auto) Neut % (Auto) Lymph % (Auto) Bracken % (Auto) Eos % (Auto) Baso % (Auto) Reticulocyte % (Auto) Neut # (Auto) Lymph # (Auto) Bracken # (Auto) Eos # (Auto) Baso # (Auto) Reticulocyte # Immature Gran # (Auto) PT INR APTT PTT Ratio ABG pH ABG pCO2 ABG pO2 ABG HCO3 ABG O2 Saturation ABG Base Excess Fabian Test VBG pH VBG pCO2 VBG pO2 VBG HCO3 VBG O2 Saturation VBG Base Excess Oxygen Given POC Sodium Sodium POC Potassium Potassium POC Chloride Chloride Carbon Dioxide POC Total CO2 Anion Gap POC Anion Gap POC BUN BUN Creatinine POC Creatinine Est Cr Clr Drug Dosing Est GFR ( Amer) Est GFR (Non-Af Amer) BUN/Creatinine Ratio Glucose POC Glucose 87 POC Glucose (other) Lactate Uric Acid Calcium POC Ioniz Calcium Sofiya Phosphorus Magnesium Iron Transferrin Ferritin Total Bilirubin AST ALT Alkaline Phosphatase Ammonia Total Creatine Kinase Troponin I High Sens 93.3 H* Total Protein Albumin Globulin Albumin/Globulin Ratio Vitamin B12 Folate Procalcitonin TSH Free T4 Random Cortisol Urine Color Urine Appearance Urine pH Ur Specific [place] Urine Protein Urine Glucose (UA) Urine Ketones Urine Blood Urine Nitrite Urine Bilirubin Urine Urobilinogen Ur Leukocyte Esterase Urine WBC (Auto) Urine RBC (Auto) U Hyaline Cast (Auto) U Epithel Cells (Auto) Urine Bacteria (Auto) Fluid Neutrophils % Fluid Lymphocytes % Fluid Meso/Macro/Bracken % Fluid Comment Peritoneal Color Peritoneal Appearance Peritoneal WBC (Auto) Peritoneal RBC (Auto) Peritoneal Tot Protein Peritoneal Albumin Nasal Screen MRSA (PCR) Negative Random Vancomycin Anaplasma Smear Babesia Smear Lyme Disease Screen Staphylococcus sp PCR Staph aureus (PCR) mecA/C & MREJ Resist Gene Bld Cult ID Panel PCR 08/03/23 08/03/23 08/03/23 04:38 04:38 07:26 WBC 20.26 H RBC 2.96 L Hgb 10.1 L POC Hgb Hct 29.0 L POC Hct MCV 98.0 MCH 34.1 H MCHC 34.8 RDW Std Deviation 52.6 H RDW Coeff of Mariel 14.7 H Plt Count 288 MPV 9.6 Immature Gran % (Auto) 1.7 Neut % (Auto) 89.3 Lymph % (Auto) 3.2 Bracken % (Auto) 5.6 Eos % (Auto) 0.0 Baso % (Auto) 0.2 Reticulocyte % (Auto) Neut # (Auto) 18.09 H Lymph # (Auto) 0.65 L Bracken # (Auto) 1.13 H Eos # (Auto) 0.00 Baso # (Auto) 0.04 Reticulocyte # Immature Gran # (Auto) 0.35 H PT INR APTT PTT Ratio ABG pH ABG pCO2 ABG pO2 ABG HCO3 ABG O2 Saturation ABG Base Excess Fabian Test VBG pH VBG pCO2 VBG pO2 VBG HCO3 VBG O2 Saturation VBG Base Excess Oxygen Given POC Sodium Sodium 135 L POC Potassium Potassium 5.3 H POC Chloride Chloride 109 H Carbon Dioxide 18 L POC Total CO2 Anion Gap 8 POC Anion Gap POC BUN BUN 68 H Creatinine 1.31 D POC Creatinine Est Cr Clr Drug Dosing 50.8 Est GFR ( Amer) 59.2 Est GFR (Non-Af Amer) 51.1 BUN/Creatinine Ratio 51.9 H Glucose 97 POC Glucose 92 POC Glucose (other) Lactate Uric Acid Calcium 8.6 POC Ioniz Calcium Sofiya Phosphorus 3.0 Magnesium 2.1 Iron Transferrin Ferritin Total Bilirubin 1.5 H AST 19 ALT 14 Alkaline Phosphatase 129 H Ammonia Total Creatine Kinase Troponin I High Sens 98.7 H* Cancelled Total Protein 6.1 Albumin 3.2 L Globulin 2.9 Albumin/Globulin Ratio 1.1 Vitamin B12 Folate Procalcitonin TSH Free T4 Random Cortisol Urine Color Urine Appearance Urine pH Ur Specific [place] Urine Protein Urine Glucose (UA) Urine Ketones Urine Blood Urine Nitrite Urine Bilirubin Urine Urobilinogen Ur Leukocyte Esterase Urine WBC (Auto) Urine RBC (Auto) U Hyaline Cast (Auto) U Epithel Cells (Auto) Urine Bacteria (Auto) Fluid Neutrophils % Fluid Lymphocytes % Fluid Meso/Macro/Bracken % Fluid Comment Peritoneal Color Peritoneal Appearance Peritoneal WBC (Auto) Peritoneal RBC (Auto) Peritoneal Tot Protein Peritoneal Albumin Nasal Screen MRSA (PCR) Random Vancomycin 10.8 Anaplasma Smear Babesia Smear Lyme Disease Screen Staphylococcus sp PCR Staph aureus (PCR) mecA/C & MREJ Resist Gene Bld Cult ID Panel PCR 08/03/23 08/03/23 08/03/23 11:35 12:18 Unknown WBC RBC Hgb POC Hgb Hct POC Hct MCV MCH MCHC RDW Std Deviation RDW Coeff of Mariel Plt Count MPV Immature Gran % (Auto) Neut % (Auto) Lymph % (Auto) Bracken % (Auto) Eos % (Auto) Baso % (Auto) Reticulocyte % (Auto) Neut # (Auto) Lymph # (Auto) Bracken # (Auto) Eos # (Auto) Baso # (Auto) Reticulocyte # Immature Gran # (Auto) PT INR APTT PTT Ratio ABG pH ABG pCO2 ABG pO2 ABG HCO3 ABG O2 Saturation ABG Base Excess Fabian Test VBG pH VBG pCO2 VBG pO2 VBG HCO3 VBG O2 Saturation VBG Base Excess Oxygen Given POC Sodium Sodium POC Potassium Potassium POC Chloride Chloride Carbon Dioxide POC Total CO2 Anion Gap POC Anion Gap POC BUN BUN Creatinine POC Creatinine Est Cr Clr Drug Dosing Est GFR ( Amer) Est GFR (Non-Af Amer) BUN/Creatinine Ratio Glucose POC Glucose 90 POC Glucose (other) Lactate Uric Acid Calcium POC Ioniz Calcium Sofiya Phosphorus Magnesium Iron Transferrin Ferritin Total Bilirubin AST ALT Alkaline Phosphatase Ammonia Total Creatine Kinase Troponin I High Sens 109.5 H* Total Protein Albumin Globulin Albumin/Globulin Ratio Vitamin B12 Folate Procalcitonin TSH Free T4 Random Cortisol Urine Color Urine Appearance Urine pH Ur Specific [place] Urine Protein Urine Glucose (UA) Urine Ketones Urine Blood Urine Nitrite Urine Bilirubin Urine Urobilinogen Ur Leukocyte Esterase Urine WBC (Auto) Urine RBC (Auto) U Hyaline Cast (Auto) U Epithel Cells (Auto) Urine Bacteria (Auto) Fluid Neutrophils % 17 Fluid Lymphocytes % 13 Fluid Meso/Macro/Bracken % 70 Fluid Comment Peritoneal Color Yellow Peritoneal Appearance Clear Peritoneal WBC (Auto) 78 Peritoneal RBC (Auto) < 2000 Peritoneal Tot Protein 4.6 Peritoneal Albumin 2.6 Nasal Screen MRSA (PCR) Random Vancomycin Anaplasma Smear Babesia Smear Lyme Disease Screen Staphylococcus sp PCR Staph aureus (PCR) mecA/C & MREJ Resist Gene Bld Cult ID Panel PCR Microbiology 08/02/23 16:09 Blood Anaerobic Blood Culture - Preliminary Gram positive cocci clusters Diagnostic Findings Chest X-Ray 08/02/23 11:55 XR chest 1V portable CLINICAL HISTORY: weakness COMPARISON STUDY: Chest radiograph March 18, 2023. FINDINGS: There is no pneumothorax or pleural effusion. Cardiomegaly is unchanged. A left subclavian pacer is in place. There is no radiographic evidence for pulmonary edema. There is no consolidation. A mildly displaced fracture of the anterior right sixth rib is new since prior chest radiograph of March 18, 2023. IMPRESSION: 1. Stable cardiomegaly. No evidence for pulmonary edema. 2. Mildly displaced fracture of the anterior right sixth rib. The appearance favors a subacute fracture. No pneumothorax. ACT 112: Negative or not required by law. Electronically signed by: Joshua Piña M.D. 08/02/2023 12:50 PM Abdomen/Pelvis CT 08/02/23 12:[address] WITHOUT CONTRAST CT DOSE: 2687.54 mGy.cm HISTORY: weakness, renal failure TECHNIQUE: Multiaxial CT images of the abdomen and pelvis were performed without contrast. A dose lowering technique was utilized adhering to the principles of ALARA. COMPARISON STUDY: Abdomen and pelvis CT 03/10/2021. FINDINGS: The lung bases will be reported on the same day chest CT. Bibasilar linear densities favor subsegmental atelectasis. There are trace bilateral pleural effusions. The heart remains enlarged. Pacemaker wires are noted. No pneumoperitoneum. No pneumatosis. Slightly displaced distal sacral fracture which is likely subacute. There is a mild to moderate superior endplate compression fracture at T12 which appears subacute. Multiple bilateral rib fractures most pronounced on the right which also appear to represent healing/subacute fractures. No definite acute fractures identified. Diffuse body wall edema. The gallbladder surgically absent. The unenhanced liver, pancreas, spleen, and adrenal glands unremarkable. Bilateral renal cysts again noted. The dominant 7.5 cm cyst within the left upper pole demonstrates mural calcification. There is a punctate stone within the lower pole the left kidney. No hydronephrosis. Decreased attenuation within the blood pool suggesting underlying anemia. No retroperitoneal lymphadenopathy. Normal caliber abdominal aorta. No pelvic lymphadenopathy. There is a large amount of ascites which has progressed. Normal bladder. The prostate gland remains enlarged. Suboptimal evaluation for bowel pathology due to the lack of intravenous and oral contrast. However, there is no definite bowel wall thickening or obstruction. Colonic diverticulosis. No evidence for acute diverticulitis. Visualized appendix is unremarkable. IMPRESSION: 1. Interval progression of the fluid overload. This includes a large amount of ascites which has progressed. 2. No definite bowel wall thickening or obstruction. 3. Left-sided nephrolithiasis. No ureteral stones. No hydronephrosis. 4. Multiple subacute/healing fractures as described above. No acute fractures. 5. Additional findings as described above. ACT 112: Negative or not required by law. Electronically signed by: Caleb Hogan M.D. 08/02/2023 2:[address] 08/02/23 12:34 CT chest diagnostic wo con CLINICAL HISTORY: weakness, renal failure TECHNIQUE: Multidetector row helical CT of the chest was performed. Coronal and sagittal reformations were obtained. Automated dose lowering techniques and/or adjustment according to patient size were utilized for this exam. Comparison: Comparison is made to chest radiograph 08/02/2023 FINDINGS: Lungs and pleura: Atelectasis and mild interlobular septal thickening are seen in the dependent portions of the lungs. Heart and pericardium: There is cardiomegaly without evidence of pericardial effusion. Vessels: Pulmonary trunk measures 37 mm. Gas is seen in the subclavian vein, external jugular vein, and pulmonary trunk, likely due to intravenous injection. Mediastinum and idalia: Subcentimeter lymph nodes are seen. Chest wall and lower neck: Unremarkable. Abdomen: For findings below the diaphragm, please refer to CT of the abdomen dated the same. Bones: Degenerative changes in the thoracic spine. Subacute appearing fracture of the lateral right sixth, seventh, and eighth ribs. IMPRESSION: 1. Cardiomegaly with possible moderate pulmonary edema. 2. Subacute right rib fractures. ACT 112: Negative or not required by law. Electronically signed by: Nino Ray M.D. 08/02/2023 2:[address] 08/02/23 12:34 CT OF THE HEAD WITHOUT CONTRAST CLINICAL HISTORY: Weakness. COMPARISON STUDY: Head CT March 18, 2023. TECHNIQUE: Helical axial images of the head were obtained without IV contrast. Automated exposure control was utilized for the study. A dose lowering technique was utilized adhering to the principles of ALARA. FINDINGS: No acute intracranial hemorrhage, midline shift or mass effect is present. The ventricular system is unremarkable. The basal cisterns are patent. No extra-axial collections are present. There are no findings to suggest acute dural sinus thrombosis or acute territorial infarct. The appearance of the brain is unchanged. Multiple sites of venous gas are noted. IMPRESSION: 1. No acute intracranial findings. 2. Multifocal venous gas, likely related to IV insertion. ACT 112: Negative or not required by law. Electronically signed by: Joshua Piña M.D. 08/02/2023 2:35 PM Thoracic Spine MRI 08/02/23 19:19 CR Exam(s): MRI T SPINE W/WO Contrast IV Amt: 8cc gadavist EXAM: MR Thoracic Spine Without and With Intravenous Contrast CLINICAL HISTORY: Reason for exam: epidural abscess rule out, low back pain x 1 month. leg weakness. history of sciatica. TECHNIQUE: Magnetic resonance images of the thoracic spine without and with intravenous contrast in multiple planes. Technical issues resulting in moderate signal dropout particularly in the lower thoracic spine. CONTRAST: Patient received 8cc gadavist of IV contrast COMPARISON: CT abdomen pelvis 08/02/23 FINDINGS: Vertebrae: Stable, moderate, biconcave compression fracture of T12, minimal retropulsion superior endplate. Mild edema suggest that this is acute or subacute, and subacute fractures can be associated with avascular necrosis. There is significant technical artifact limiting evaluation. Mild heterogeneous marrow signal, specifically at T2 left pedicle, there is an enhancing mass that is concerning for bony metastatic disease. More subtle lesions are seen T8, T9 and T10 without corresponding CT abnormality that could reflect an atypical hemangioma, though metastatic disease difficult to entirely exclude. No discitis or osteomyelitis. Discs/spinal canal/neural foramina: Moderate, central T7-8 disc protrusion, without spinal stenosis. No other focal disc disease or spinal stenosis. Spinal cord: Grossly normal signal. No abnormal enhancement. Soft tissues: Bilateral pleural effusions and ascites, stable. No definite epidural abscess or abnormal enhancement. IMPRESSION: 1. Moderate biconcave compression T12 with edema, may reflect an acute or subacute fracture that may be associated with avascular necrosis, correlate clinically. 2. Possible bony metastatic disease, most notably left T2 pedicle. Correlate clinically, and if necessary with nuclear medicine bone scan imaging or PET CT as clinically indicated. 3. Moderate central disc protrusion T7-8. 4. No discitis, osteomyelitis, epidural abscess, spinal stenosis, abnormal cord signal or abnormal enhancement. 5. Significant technical artifact limits detail. Consider follow-up if symptoms persist or progress. Communications: Verify Receipt with Nurse Electronically signed by: Enedina Wallis M.D. 08/03/23 01:58 AM Lumbar Spine MRI 08/02/23 21:01 Exam(s): MRI L SPINE W/WO Contrast IV Amt: 8cc gadavist EXAM: MR Lumbar Spine Without and With Intravenous Contrast CLINICAL HISTORY: Reason for exam: epidural abscess r/o. TECHNIQUE: Magnetic resonance images of the lumbar spine without and with intravenous contrast in multiple planes. Significant limited evaluation due to signal dropout. CONTRAST: Patient received 8cc gadavist of IV contrast COMPARISON: CT abdomen pelvis done earlier the same day. FINDINGS: Vertebrae: Moderate T12 compression deformity, with underlying edema, nonspecific, see separately dictated thoracic spine MRI report. Mild superior endplate edema and deformity of L1, likely acute or subacute fracture. There is no worrisome metastatic disease in the lumbar spine. No discitis or osteomyelitis. Conus: Terminates normally. No abnormal enhancement. Soft tissues: No obvious psoas or epidural abscess. Significant artifact limits evaluation. Ascites and pleural effusions, better seen on CT. DISCS/SPINAL CANAL/NEURAL FORAMINA: L1-L2: Mild degenerative disc disease. Severe facet hypertrophy and borderline central spinal stenosis. L2-L3: Moderate central spinal stenosis due to moderate disc protrusion, disc space narrowing, severe facet hypertrophy. There is moderate to severe bilateral foraminal stenosis. L3-L4: Severe disc space narrowing, large disc herniation, severe facet and ligamentum flavum hypertrophy, results in severe central spinal stenosis and severe bilateral foraminal stenosis. L4-L5: Severe disc space narrowing, with moderate circumferential disc protrusion, with inferior migration on the right, severe facet hypertrophy, and severe right foraminal and right lateral recess stenosis. Moderate central spinal stenosis and left foraminal stenosis. L5-S1: Severe disc space narrowing with moderate slightly rightward disc bulge and osteophyte, and severe bilateral foraminal stenosis. No significant central spinal stenosis, though potential for right S1 impingement syndrome, correlate clinically. IMPRESSION: 1. Moderate compression fracture T12, see separately dictated thoracic spine MRI. 2. Mild superior endplate edema and compression fracture L1, likely acute or subacute. 3. Severe diffuse degenerative disc disease including severe central spinal stenosis L3-4, moderate central spinal stenosis L2-3 at L4-5 and multilevel lateral recess and foraminal stenosis, as detailed above. 4. No discitis, osteomyelitis, or epidural abscess, though there is significant technical artifact limiting evaluation. Consider follow-up if symptoms persist. 5. No bony metastatic disease in the lumbar spine. Electronically signed by: Enedina Wallis M.D. 08/03/23 01:59 AM Medications Administered Home Medications Medication Instructions Recorded Confirmed Last Taken metoprolol succinate 25 mg 12.5 mg (1/2 x 25 mg) PO DAILY #45 09/07/22 08/02/23 Unknown tablet,extended release 24 hr tabs losartan 25 mg tablet 25 mg PO DAILY #90 tabs 09/27/22 08/02/23 Unknown tafamidis meglumine 20 mg capsule 20 mg PO DAILY 02/24/23 08/02/23 Unknown (Vyndaqel) torsemide 10 mg tablet 50 mg PO UD 06/05/23 08/02/23 Unknown acetaminophen 325 mg capsule 325 mg PO QID PRN Pain 07/14/23 08/02/23 Unknown (Tylenol) methocarbamol 500 mg tablet 500 mg PO TID #90 tabs 07/14/23 08/02/23 Unknown apixaban 5 mg tablet (Eliquis) 5 mg PO BID #180 tabs 07/20/23 08/02/23 Unknown gabapentin 300 mg capsule 300 mg PO BID #60 caps 07/24/23 08/02/23 Unknown spironolactone 25 mg tablet 25 mg PO UD 08/02/23 08/02/23 Unknown Active Medications Generic Name Dose Route Start Last Admin Trade Name Freq PRN Reason Stop Dose Admin Apixaban 2.5 mg 08/02/23 21:00 08/03/23 00:52 Apixaban 2.5 Mg Tab PO 09/01/23 20:59 2.5 mg BID EDUARDO Administration Phenylephrine HCl 25 mg in 250 mls @ 24 mls/hr 08/02/23 13:45 08/03/23 11:22 Phenylephrine/Nss IV 09/01/23 13:44 2.3 mcg/kg/min .[id number] EDUARDO 110.4 mls/hr Administration Protocol 0.5 MCG/KG/MIN Meropenem 500 mg/ Syringe 10 mls @ 2 mls/min 08/03/23 01:00 08/03/23 11:41 IV 08/05/23 00:59 2 mls/min Q8H EDUARDO Administration Protocol Vancomycin HCl 750 mg/ Sodium 265 mls @ 200 mls/hr 08/03/23 08:00 08/03/23 09:00 Chloride IV 08/17/23 07:59 Infused Q12H EDUARDO Infusion Midodrine 10 mg 08/03/23 12:00 08/03/23 11:42 Midodrine Hcl 10 Mg Tab PO 09/02/23 11:59 10 mg TID@0800,1200,1700 EDUARDO Administration Miscellaneous 1 each 08/02/23 21:00 08/03/23 11:38 Icu Protocol For Hyperglycemia N/A 08/04/23 20:59 Not Given ACHS EDUARDO Sodium Zirconium Cyclosilicate 10 gm 08/02/23 21:00 08/03/23 08:52 Sodium Zirconium Cyclosilicate 10 Gm Packet PO 08/03/23 14:01 10 gm TID EDUARDO Administration
--- NOTE | 2023-08-03 13:49 | Nephrology Progress Note ---
Date of Service August 03, 2023 Assessment & Plan (1) FILI (acute kidney injury): Plan: Non-oliguric. Kidneys are not obstructed. Ortega draining clear yellow urine. Creatinine trending downward with supportive care. Clinical presentation consistent with hemodynamically mediated rise in creatinine due to intravascular volume depletion and decreased EAV. Diuretics contributing. Diuretics held. Volume status acceptable. Phenylephrine gtt is being weaned with midodrine. Medications are appropriate for kidney function. Losartan and spironolactone have been held. Gabapentin held but may be restarted PRN. (2) Hypotension: Plan: Metoprolol, losartan, and spironolactone held. Avoid aggressive IV hydration. Phenylephrine is being weaned. Midodrine added. (3) Hyperkalemia: Plan: Lokelma will complete today. Continue to hold ARB and MRA. (4) Heart failure with mid-range ejection fraction: Plan: Diuretics held pending improved BP. (5) Cardiac amyloidosis: Admission and Anticipated Discharge Date Admission Date: August 02, 2023 Subjective No acute events overnight. Quentin was resting comfortably in his hospital bed this morning. He did not endorse significant pain. He denies chest pains or palpitations. He denies dyspnea. Paracentesis performed this AM with ~500 ml of clear straw colored fluid removed. Ortega remains in place. Clear yellow urine draining to Ortega bag. No fevers or chills. ID consultation obtained this AM by [employer]. Quentin states that he feels well overall. Phenylephrine is being weaned. Review of Systems Review of Systems: All systems reviewed & are unremarkable except as noted in HPI & below Physical Exam Constitutional: + thin, + frail appearing and comfortabl e; no acute distress Eyes: + anicteric sclerae; no conjunctival abn ormality Neck: normal visual inspection and trachea midline Respiratory: normal respiratory effort Cardiovascular: Rate/Rhythm: regular rate Vessels: + JVD Extremities: + edema (1-2+ pitting BL LE) Skin: no jaundice Neurologic: Motor/Sensory: no tremor and no asterixis Psychiatric: Orientation: alert and oriented x 3 Genitourinary: Ortega draining clear yellow urine Results & Data Vital Signs (Past 12 Hours) Vital Signs Temp Pulse Resp BP Pulse Ox O2 Del Method 08/03/23 12:22 36.8 C 08/03/23 12:00 97/65 L 08/03/23 12:00 75 17 87 L 08/03/23 11:45 105/68 08/03/23 11:45 67 12 97 08/03/23 11:31 64 20 95 08/03/23 11:31 105/69 08/03/23 11:30 63 15 92 08/03/23 11:15 64 15 94 08/03/23 11:15 99/63 L 08/03/23 11:00 96 08/03/23 10:46 60 17 98 08/03/23 10:46 111/78 08/03/23 10:30 109/67 08/03/23 10:30 82 20 97 08/03/23 10:15 109/66 08/03/23 10:15 61 17 96 Room Air 08/03/23 10:00 104/64 08/03/23 10:00 63 13 99 Room Air 08/03/23 09:45 109/68 08/03/23 09:45 61 13 100 Room Air 08/03/23 09:37 36.9 C 08/03/23 09:30 61 13 100 08/03/23 09:30 105/67 08/03/23 09:15 107/60 08/03/23 09:15 66 18 98 08/03/23 09:00 87/55 L 08/03/23 09:00 65 18 100 08/03/23 08:45 62 15 98 08/03/23 08:45 98/61 L 08/03/23 08:30 97/60 L 08/03/23 08:30 60 16 98 08/03/23 08:15 103/61 08/03/23 08:15 60 18 08/03/23 08:00 60 23 98 08/03/23 08:00 102/64 08/03/23 08:00 62 08/03/23 07:46 95/61 L 08/03/23 07:46 61 21 96 08/03/23 07:31 122/64 08/03/23 07:31 78 15 95 08/03/23 07:30 62 18 97 08/03/23 07:16 60 14 97 08/03/23 07:16 98/59 L 08/03/23 07:00 61 16 95 08/03/23 07:00 97/50 L 08/03/23 06:46 60 16 98 08/03/23 06:46 91/54 L 08/03/23 06:45 83/54 L 08/03/23 06:45 60 15 98 08/03/23 06:30 60 16 99 08/03/23 06:30 94/55 L 08/03/23 06:15 60 24 99 08/03/23 06:15 98/58 L 08/03/23 06:01 60 16 98 08/03/23 06:00 96/54 L 08/03/23 05:59 60 14 98 08/03/23 05:45 60 16 98 08/03/23 05:45 92/52 L 08/03/23 05:30 60 14 98 08/03/23 05:30 96/58 L 08/03/23 05:15 93/52 L 08/03/23 05:15 60 17 97 08/03/23 05:00 60 13 98 08/03/23 05:00 92/53 L 08/03/23 04:45 62 17 95 08/03/23 04:45 97/56 L 08/03/23 04:30 92/55 L 08/03/23 04:30 60 14 95 08/03/23 04:15 97/52 L 08/03/23 04:15 60 15 98 08/03/23 04:00 98/54 L 08/03/23 04:00 60 22 98 08/03/23 03:45 60 19 99 08/03/23 03:45 102/59 L 08/03/23 03:30 89/54 L 08/03/23 03:30 60 17 99 08/03/23 03:15 60 15 99 08/03/23 03:15 94/55 L 08/03/23 03:00 58 L 14 97 08/03/23 03:00 91/54 L 08/03/23 02:45 60 11 L 97 08/03/23 02:45 95/54 L 08/03/23 02:30 60 14 98 08/03/23 02:30 96/58 L 08/03/23 02:15 60 18 97 08/03/23 02:15 92/55 L 08/03/23 02:00 60 14 96 08/03/23 02:00 92/56 L 08/03/23 01:45 60 17 97 08/03/23 01:45 86/46 L Laboratory Results Laboratory Results - last 24 hr 08/02/23 08/02/23 08/02/23 11:30 13:55 15:22 WBC RBC Hgb Hct MCV MCH MCHC RDW Std Deviation RDW Coeff of Mariel Plt Count MPV Immature Gran % (Auto) Neut % (Auto) Lymph % (Auto) [place] % (Auto) Eos % (Auto) Baso % (Auto) Reticulocyte % (Auto) Neut # (Auto) Lymph # (Auto) [place] # (Auto) Eos # (Auto) Baso # (Auto) Reticulocyte # Immature Gran # (Auto) APTT PTT Ratio ABG pH ABG pCO2 ABG pO2 ABG HCO3 ABG O2 Saturation ABG Base Excess Fabian Test VBG pH VBG pCO2 VBG pO2 VBG HCO3 VBG O2 Saturation VBG Base Excess Oxygen Given Sodium Potassium Chloride Carbon Dioxide Anion Gap BUN Creatinine Est Cr Clr Drug Dosing Est GFR ( Amer) Est GFR (Non-Af Amer) BUN/Creatinine Ratio Glucose POC Glucose 199 H Lactate Calcium Phosphorus Magnesium Iron 51 Transferrin 214 Ferritin 393.2 H Total Bilirubin AST ALT Alkaline Phosphatase Ammonia Troponin I High Sens 82.5 H* Total Protein Albumin Globulin Albumin/Globulin Ratio Folate 12.06 Procalcitonin TSH 6.200 H Free T4 1.40 Random Cortisol Urine Color Yellow Urine Appearance Turbid A Urine pH 5.0 Ur Specific [place] 1.015 Urine Protein Trace H Urine Glucose (UA) Negative Urine Ketones Negative Urine Blood 3+ H Urine Nitrite Negative Urine Bilirubin Negative Urine Urobilinogen Negative Ur Leukocyte Esterase 1+ H Urine WBC (Auto) 0-5 Urine RBC (Auto) >20 H U Hyaline Cast (Auto) 0-2 U Epithel Cells (Auto) 0-2 Urine Bacteria (Auto) None Seen Fluid Neutrophils % Fluid Lymphocytes % Fluid Meso/Macro/Routt % Fluid Comment Peritoneal Color Peritoneal Appearance Peritoneal WBC (Auto) Peritoneal RBC (Auto) Peritoneal Tot Protein Peritoneal Albumin Nasal Screen MRSA (PCR) Random Vancomycin Staphylococcus sp PCR Staph aureus (PCR) mecA/C & MREJ Resist Gene Bld Cult ID Panel PCR 08/02/23 08/02/23 08/02/23 16:06 16:09 16:30 WBC RBC Hgb Hct MCV MCH MCHC RDW Std Deviation RDW Coeff of Mariel Plt Count MPV Immature Gran % (Auto) Neut % (Auto) Lymph % (Auto) [place] % (Auto) Eos % (Auto) Baso % (Auto) Reticulocyte % (Auto) 2.14 H Neut # (Auto) Lymph # (Auto) [place] # (Auto) Eos # (Auto) Baso # (Auto) Reticulocyte # 0.060 Immature Gran # (Auto) APTT 33 H PTT Ratio 1.2 ABG pH 7.37 ABG pCO2 27 L ABG pO2 104 H ABG HCO3 16 L ABG O2 Saturation 98.6 H ABG Base Excess -8.1 Fabian Test Pos VBG pH VBG pCO2 VBG pO2 VBG HCO3 VBG O2 Saturation VBG Base Excess Oxygen Given ROOM AIR Sodium 134 L Potassium 5.7 H Chloride 107 Carbon Dioxide 18 L Anion Gap 9 BUN 85 H Creatinine 1.68 H Est Cr Clr Drug Dosing 39.6 Est GFR ( Amer) 43.8 Est GFR (Non-Af Amer) 37.8 BUN/Creatinine Ratio 50.6 H Glucose 55 L POC Glucose Lactate 1.2 Calcium 9.5 Phosphorus Magnesium Iron Transferrin Ferritin Total Bilirubin 2.2 H AST 24 ALT 17 Alkaline Phosphatase 148 H Ammonia 11.0 L Troponin I High Sens 91.5 H* Total Protein 7.3 Albumin 3.6 Globulin 3.7 Albumin/Globulin Ratio 1.0 Folate Procalcitonin 1.85 H TSH Free T4 Random Cortisol 34.79 Urine Color Urine Appearance Urine pH Ur Specific [place] Urine Protein Urine Glucose (UA) Urine Ketones Urine Blood Urine Nitrite Urine Bilirubin Urine Urobilinogen Ur Leukocyte Esterase Urine WBC (Auto) Urine RBC (Auto) U Hyaline Cast (Auto) U Epithel Cells (Auto) Urine Bacteria (Auto) Fluid Neutrophils % Fluid Lymphocytes % Fluid Meso/Macro/Routt % Fluid Comment Peritoneal Color Peritoneal Appearance Peritoneal WBC (Auto) Peritoneal RBC (Auto) Peritoneal Tot Protein Peritoneal Albumin Nasal Screen MRSA (PCR) Random Vancomycin Staphylococcus sp PCR DETECTED A Staph aureus (PCR) DETECTED A mecA/C & MREJ Resist Gene MRSA Not Detected Bld Cult ID Panel PCR See PCR Comment 08/02/23 08/02/23 08/02/23 16:58 17:48 20:18 WBC RBC Hgb Hct MCV MCH MCHC RDW Std Deviation RDW Coeff of Mariel Plt Count MPV Immature Gran % (Auto) Neut % (Auto) Lymph % (Auto) [place] % (Auto) Eos % (Auto) Baso % (Auto) Reticulocyte % (Auto) Neut # (Auto) Lymph # (Auto) [place] # (Auto) Eos # (Auto) Baso # (Auto) Reticulocyte # Immature Gran # (Auto) APTT PTT Ratio ABG pH ABG pCO2 ABG pO2 ABG HCO3 ABG O2 Saturation ABG Base Excess Fabian Test VBG pH VBG pCO2 VBG pO2 VBG HCO3 VBG O2 Saturation VBG Base Excess Oxygen Given Sodium Potassium Chloride Carbon Dioxide Anion Gap BUN Creatinine Est Cr Clr Drug Dosing Est GFR ( Amer) Est GFR (Non-Af Amer) BUN/Creatinine Ratio Glucose POC Glucose 52 L* 110 H 96 Lactate Calcium Phosphorus Magnesium Iron Transferrin Ferritin Total Bilirubin AST ALT Alkaline Phosphatase Ammonia Troponin I High Sens Total Protein Albumin Globulin Albumin/Globulin Ratio Folate Procalcitonin TSH Free T4 Random Cortisol Urine Color Urine Appearance Urine pH Ur Specific [place] Urine Protein Urine Glucose (UA) Urine Ketones Urine Blood Urine Nitrite Urine Bilirubin Urine Urobilinogen Ur Leukocyte Esterase Urine WBC (Auto) Urine RBC (Auto) U Hyaline Cast (Auto) U Epithel Cells (Auto) Urine Bacteria (Auto) Fluid Neutrophils % Fluid Lymphocytes % Fluid Meso/Macro/Routt % Fluid Comment Peritoneal Color Peritoneal Appearance Peritoneal WBC (Auto) Peritoneal RBC (Auto) Peritoneal Tot Protein Peritoneal Albumin Nasal Screen MRSA (PCR) Random Vancomycin Staphylococcus sp PCR Staph aureus (PCR) mecA/C & MREJ Resist Gene Bld Cult ID Panel PCR 08/02/23 08/02/23 08/03/23 22:27 Unknown 00:55 WBC RBC Hgb Hct MCV MCH MCHC RDW Std Deviation RDW Coeff of Mariel Plt Count MPV Immature Gran % (Auto) Neut % (Auto) Lymph % (Auto) [place] % (Auto) Eos % (Auto) Baso % (Auto) Reticulocyte % (Auto) Neut # (Auto) Lymph # (Auto) [place] # (Auto) Eos # (Auto) Baso # (Auto) Reticulocyte # Immature Gran # (Auto) APTT PTT Ratio ABG pH ABG pCO2 ABG pO2 ABG HCO3 ABG O2 Saturation ABG Base Excess Fabian Test VBG pH 7.35 L VBG pCO2 37 L VBG pO2 23 VBG HCO3 20 VBG O2 Saturation < 60.0 VBG Base Excess -4.7 Oxygen Given Sodium 134 L Potassium 5.8 H Chloride 108 H Carbon Dioxide 20 L Anion Gap 6 BUN 76 H Creatinine 1.63 H Est Cr Clr Drug Dosing 40.8 Est GFR ( Amer) 45.4 Est GFR (Non-Af Amer) 39.2 BUN/Creatinine Ratio 46.6 H Glucose 118 H POC Glucose 87 Lactate Calcium 8.7 Phosphorus Magnesium Iron Transferrin Ferritin Total Bilirubin 1.9 H AST 21 ALT 14 Alkaline Phosphatase 131 H Ammonia Troponin I High Sens Total Protein 6.4 Albumin 3.3 L Globulin 3.1 Albumin/Globulin Ratio 1.1 Folate Procalcitonin TSH Free T4 Random Cortisol Urine Color Urine Appearance Urine pH Ur Specific [place] Urine Protein Urine Glucose (UA) Urine Ketones Urine Blood Urine Nitrite Urine Bilirubin Urine Urobilinogen Ur Leukocyte Esterase Urine WBC (Auto) Urine RBC (Auto) U Hyaline Cast (Auto) U Epithel Cells (Auto) Urine Bacteria (Auto) Fluid Neutrophils % Fluid Lymphocytes % Fluid Meso/Macro/Routt % Fluid Comment Peritoneal Color Peritoneal Appearance Peritoneal WBC (Auto) Peritoneal RBC (Auto) Peritoneal Tot Protein Peritoneal Albumin Nasal Screen MRSA (PCR) Negative Random Vancomycin Staphylococcus sp PCR Staph aureus (PCR) mecA/C & MREJ Resist Gene Bld Cult ID Panel PCR 08/03/23 08/03/23 08/03/23 00:56 04:38 04:38 WBC 20.26 H RBC 2.96 L Hgb 10.1 L Hct 29.0 L MCV 98.0 MCH 34.1 H MCHC 34.8 RDW Std Deviation 52.6 H RDW Coeff of Mariel 14.7 H Plt Count 288 MPV 9.6 Immature Gran % (Auto) 1.7 Neut % (Auto) 89.3 Lymph % (Auto) 3.2 [place]t % (Auto) 5.6 Eos % (Auto) 0.0 Baso % (Auto) 0.2 Reticulocyte % (Auto) Neut # (Auto) 18.09 H Lymph # (Auto) 0.65 L [place] # (Auto) 1.13 H Eos # (Auto) 0.00 Baso # (Auto) 0.04 Reticulocyte # Immature Gran # (Auto) 0.35 H APTT PTT Ratio ABG pH ABG pCO2 ABG pO2 ABG HCO3 ABG O2 Saturation ABG Base Excess Fabian Test VBG pH VBG pCO2 VBG pO2 VBG HCO3 VBG O2 Saturation VBG Base Excess Oxygen Given Sodium 135 L Potassium 5.3 H Chloride 109 H Carbon Dioxide 18 L Anion Gap 8 BUN 68 H Creatinine 1.31 D Est Cr Clr Drug Dosing 50.8 Est GFR ( Amer) 59.2 Est GFR (Non-Af Amer) 51.1 BUN/Creatinine Ratio 51.9 H Glucose 97 POC Glucose Lactate Calcium 8.6 Phosphorus 3.0 Magnesium 2.1 Iron Transferrin Ferritin Total Bilirubin 1.5 H AST 19 ALT 14 Alkaline Phosphatase 129 H Ammonia Troponin I High Sens 93.3 H* 98.7 H* Cancelled Total Protein 6.1 Albumin 3.2 L Globulin 2.9 Albumin/Globulin Ratio 1.1 Folate Procalcitonin TSH Free T4 Random Cortisol Urine Color Urine Appearance Urine pH Ur Specific [place] Urine Protein Urine Glucose (UA) Urine Ketones Urine Blood Urine Nitrite Urine Bilirubin Urine Urobilinogen Ur Leukocyte Esterase Urine WBC (Auto) Urine RBC (Auto) U Hyaline Cast (Auto) U Epithel Cells (Auto) Urine Bacteria (Auto) Fluid Neutrophils % Fluid Lymphocytes % Fluid Meso/Macro/Routt % Fluid Comment Peritoneal Color Peritoneal Appearance Peritoneal WBC (Auto) Peritoneal RBC (Auto) Peritoneal Tot Protein Peritoneal Albumin Nasal Screen MRSA (PCR) Random Vancomycin 10.8 Staphylococcus sp PCR Staph aureus (PCR) mecA/C & MREJ Resist Gene Bld Cult ID Panel PCR 08/03/23 08/03/23 08/03/23 07:26 11:35 12:18 WBC RBC Hgb Hct MCV MCH MCHC RDW Std Deviation RDW Coeff of Mariel Plt Count MPV Immature Gran % (Auto) Neut % (Auto) Lymph % (Auto) [place] % (Auto) Eos % (Auto) Baso % (Auto) Reticulocyte % (Auto) Neut # (Auto) Lymph # (Auto) [place] # (Auto) Eos # (Auto) Baso # (Auto) Reticulocyte # Immature Gran # (Auto) APTT PTT Ratio ABG pH ABG pCO2 ABG pO2 ABG HCO3 ABG O2 Saturation ABG Base Excess Fabian Test VBG pH VBG pCO2 VBG pO2 VBG HCO3 VBG O2 Saturation VBG Base Excess Oxygen Given Sodium Potassium Chloride Carbon Dioxide Anion Gap BUN Creatinine Est Cr Clr Drug Dosing Est GFR ( Amer) Est GFR (Non-Af Amer) BUN/Creatinine Ratio Glucose POC Glucose 92 90 Lactate Calcium Phosphorus Magnesium Iron Transferrin Ferritin Total Bilirubin AST ALT Alkaline Phosphatase Ammonia Troponin I High Sens 109.5 H* Total Protein Albumin Globulin Albumin/Globulin Ratio Folate Procalcitonin TSH Free T4 Random Cortisol Urine Color Urine Appearance Urine pH Ur Specific [place] Urine Protein Urine Glucose (UA) Urine Ketones Urine Blood Urine Nitrite Urine Bilirubin Urine Urobilinogen Ur Leukocyte Esterase Urine WBC (Auto) Urine RBC (Auto) U Hyaline Cast (Auto) U Epithel Cells (Auto) Urine Bacteria (Auto) Fluid Neutrophils % Fluid Lymphocytes % Fluid Meso/Macro/Routt % Fluid Comment Peritoneal Color Peritoneal Appearance Peritoneal WBC (Auto) Peritoneal RBC (Auto) Peritoneal Tot Protein Peritoneal Albumin Nasal Screen MRSA (PCR) Random Vancomycin Staphylococcus sp PCR Staph aureus (PCR) mecA/C & MREJ Resist Gene Bld Cult ID Panel PCR 08/03/23 Unknown WBC RBC Hgb Hct MCV MCH MCHC RDW Std Deviation RDW Coeff of Mariel Plt Count MPV Immature Gran % (Auto) Neut % (Auto) Lymph % (Auto) [place] % (Auto) Eos % (Auto) Baso % (Auto) Reticulocyte % (Auto) Neut # (Auto) Lymph # (Auto) [place] # (Auto) Eos # (Auto) Baso # (Auto) Reticulocyte # Immature Gran # (Auto) APTT PTT Ratio ABG pH ABG pCO2 ABG pO2 ABG HCO3 ABG O2 Saturation ABG Base Excess Fabian Test VBG pH VBG pCO2 VBG pO2 VBG HCO3 VBG O2 Saturation VBG Base Excess Oxygen Given Sodium Potassium Chloride Carbon Dioxide Anion Gap BUN Creatinine Est Cr Clr Drug Dosing Est GFR ( Amer) Est GFR (Non-Af Amer) BUN/Creatinine Ratio Glucose POC Glucose Lactate Calcium Phosphorus Magnesium Iron Transferrin Ferritin Total Bilirubin AST ALT Alkaline Phosphatase Ammonia Troponin I High Sens Total Protein Albumin Globulin Albumin/Globulin Ratio Folate Procalcitonin TSH Free T4 Random Cortisol Urine Color Urine Appearance Urine pH Ur Specific [place] Urine Protein Urine Glucose (UA) Urine Ketones Urine Blood Urine Nitrite Urine Bilirubin Urine Urobilinogen Ur Leukocyte Esterase Urine WBC (Auto) Urine RBC (Auto) U Hyaline Cast (Auto) U Epithel Cells (Auto) Urine Bacteria (Auto) Fluid Neutrophils % 17 Fluid Lymphocytes % 13 Fluid Meso/Macro/Routt % 70 Fluid Comment Peritoneal Color Yellow Peritoneal Appearance Clear Peritoneal WBC (Auto) 78 Peritoneal RBC (Auto) < 2000 Peritoneal Tot Protein 4.6 Peritoneal Albumin 2.6 Nasal Screen MRSA (PCR) Random Vancomycin Staphylococcus sp PCR Staph aureus (PCR) mecA/C & MREJ Resist Gene Bld Cult ID Panel PCR PG Care Time/CCT Total # of Minutes Spent Total Time Spent with Patient: Total time spent is greater than 50% in coordination of care (as documented) at patient's floor/unit and/or counseling patient: Coding Level of Care Code 49619 SUB INP/OBS CARE 3/50MIN Diagnoses FILI (acute kidney injury) N17.9 Hypotension I95.9 Hypotension type: unspecified hypotension type Hyperkalemia E87.5 Heart failure with mid-range ejection fraction I50.22 Cardiac amyloidosis E85.4; I43 (2) Hypotension Hypotension type: unspecified hypotension type Qualified Code(s): I95.9 - Hypotension, unspecified
--- NOTE | 2023-08-03 14:58 | XRay Report ---
RIGHT CALCANEUS 2 VIEWS CLINICAL HISTORY: Right heel pain. Infection. FINDINGS: AP and lateral views of the right calcaneus are correlated with radiograph of the right yong t dated 05/27/2016. The skeletal structures are osteopenic. There is no radiographic evidence of calcan eal fracture. There are large dorsal and plantar heel spurs. No erosive change is seen. An os trigonu m is incidentally noted. There is soft tissue edema around the heel with a dorsal wound. No radiodens e foreign body is identified. There is atherosclerotic calcification of the regional arteries. IMPRESSION: 1. No acute bony abnormality is identified. 2. Soft tissue edema suggests cellulitis and there is a wound along the posterior aspect of the heel. 3. Large heel spurs. Electronically signed by: Luis Daniel Marques M.D. 08/03/2023 2:56 PM
--- NOTE | 2023-08-03 15:04 | XRay Report ---
XR calcaneus LT min 2V CLINICAL HISTORY: poss osteo TECHNIQUE: 2 views of the left calcaneus were obtained. Comparison: None available at the time of this dictation. FINDINGS: No evidence of bony erosion is seen. The alignment is anatomic. The joint spaces are well preserved. No soft tissue abnormality is identified. IMPRESSION: No radiographic evidence of osteomyelitis. If clinical concern remains, MRI is a more sensitive modal ity. ACT 112: Negative or not required by law. Electronically signed by: Nino Ray M.D. 08/03/2023 3:03 PM
[2023-08-03] MEDS: PHENYLEPHRINE HCL 100 MG in SODIUM CHLORIDE 0.9% 240 ML IV SCH (15:36)
--- NOTE | 2023-08-03 16:48 | Hospitalist Progress Note ---
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 Additional cultures are pending. Patient with multiple skin bruises of possible portal of entry. Paracentesis has been obtained low cell counts although waiting for cultures Denies cough, abdominal pain, urinary symptoms. CTchest with moderate pulmonary edema no defined infiltrates or commented upon CTA/P is with large volume ascites, patient does not have tenderness/rebound/guarding. Previous history of cholecystectomy -MRI of spine does not suggest epidural abscess but does note L1 compression fracture and L3-4 spinal stenosis -Tickborne illness/infection studies are negative Procalcitonin elevated 1.85, cortisol pending UA with leukocyte Estrace and blood, UCx pending. Infectious disease consultation likely treating for possible staph bacteremia. Once MRSA is ruled out likely will de-escalate to Ancef. Discontinuing Vanco. Continue meropenem until ascites cultures result Patient remains on blood pressure support with the use of midodrine (2) Cardiac amyloidosis: Plan: Cardiac amyloidosis typically managed at [facility]. Repeat echocardiogram shows EF approximately 40-45%, similar to March heart failure with midrange ejection fraction Dual-chamber pacemaker in place for heart block EKG is ventricular paced rhythm. Troponin is elevated from demand ischemia do not suspect acute coronary syndrome Tafamidis continued Cardiology is consulted. Will follow along (3) Atrial fibrillation, permanent: Plan: History of A-fib/a flutter, history of heart block s/p pacer Anticoagulation continued, Cr improved dose increase to apixaban 5mg bid Metoprolol held for hypotension Paced rhythm on EKG, concern of staph bacteremia with implanted devices (4) Central sleep apnea: Plan: CPAP nightly Plan DVT prophylaxis: Anticoagulated with Eliquis now currently on hold outlook guarded at this time Admission and Anticipated Discharge Date Admission Date: August 02, 2023 Subjective Patient is awake his encephalopathy seems to have cleared he offers no focal complaints other than back discomfort as he does have a compression fracture and spinal stenosis. Queried about the wounds on his hands he says they are from cooking for his and torres. There are some wounds on his feet and heels x-rays did not show osteomyelitis. One of his blood cultures are positive for gram-positive cocci additional cultures are pending Diagnostic abdominal paracentesis shows a serum albumin ascites gradient to be 0.6 which this goes against this being portal hypertension as etiology of his fluid but infectious and malignant etiologies could be a possibility remainder of studies are pending Patient remains on pressor support significant amyloid cardiomyopathy clinically he is hypervolemic but blood pressure limits any chance of diuresis at this point. Attempts of using midodrine to get off pressors are being undertaken Remains with leukocytosis portal of entry could be skin if this is really an infection Physical Exam Physical Exam: Patient is awake he is oriented x 3 he is slightly foggy based my recollection of my knowledge of this patient He is without head or neck trauma that I can see Cardiac exam is regular no murmurs or peripheral stigmata of endocarditis Lung exam is without significant air loss no wheezes Abdomen shows likely still retained ascites dull no focal tenderness Extremities are with changes of chronic venous stasis bruising and skin discoloration heel with some skin cracking on the right Results & Data Results & Data Vital Signs (Past 12 Hours) Vital Signs Temp Pulse Resp BP Pulse Ox O2 Del Method 08/03/23 13:45 96/62 L 08/03/23 13:45 60 15 98 08/03/23 13:38 99/61 L 08/03/23 13:38 60 16 97 08/03/23 13:33 69/46 L 08/03/23 13:33 60 18 98 08/03/23 13:30 79/52 L 08/03/23 13:30 60 14 98 08/03/23 13:15 94/59 L 08/03/23 13:15 60 15 97 08/03/23 13:00 94/51 L 08/03/23 13:00 61 15 94 08/03/23 12:45 62 16 95 08/03/23 12:30 97/58 L 08/03/23 12:30 60 14 95 08/03/23 12:22 98.2 F 08/03/23 12:15 67 15 96 08/03/23 12:00 97/65 L 08/03/23 12:00 75 17 87 L 08/03/23 11:45 105/68 08/03/23 11:45 67 12 97 08/03/23 11:31 64 20 95 08/03/23 11:31 105/69 08/03/23 11:30 63 15 92 08/03/23 11:15 64 15 94 08/03/23 11:15 99/63 L 08/03/23 11:00 96 08/03/23 10:46 60 17 98 08/03/23 10:46 111/78 08/03/23 10:30 109/67 08/03/23 10:30 82 20 97 08/03/23 10:15 109/66 08/03/23 10:15 61 17 96 Room Air 08/03/23 10:00 104/64 08/03/23 10:00 63 13 99 Room Air 08/03/23 09:45 109/68 08/03/23 09:45 61 13 100 Room Air 08/03/23 09:37 98.4 F 08/03/23 09:30 61 13 100 08/03/23 09:30 105/67 08/03/23 09:15 107/60 08/03/23 09:15 66 18 98 08/03/23 09:00 87/55 L 08/03/23 09:00 65 18 100 08/03/23 08:45 62 15 98 08/03/23 08:45 98/61 L 08/03/23 08:30 97/60 L 08/03/23 08:30 60 16 98 08/03/23 08:15 103/61 08/03/23 08:15 60 18 08/03/23 08:00 60 23 98 08/03/23 08:00 102/64 08/03/23 08:00 62 08/03/23 07:46 95/61 L 08/03/23 07:46 61 21 96 08/03/23 07:31 122/64 08/03/23 07:31 78 15 95 08/03/23 07:30 62 18 97 08/03/23 07:16 60 14 97 08/03/23 07:16 98/59 L 08/03/23 07:00 61 16 95 08/03/23 07:00 97/50 L 08/03/23 06:46 60 16 98 08/03/23 06:46 91/54 L 08/03/23 06:45 83/54 L 08/03/23 06:45 60 15 98 08/03/23 06:30 60 16 99 08/03/23 06:30 94/55 L 08/03/23 06:15 60 24 99 08/03/23 06:15 98/58 L 08/03/23 06:01 60 16 98 08/03/23 06:00 96/54 L 08/03/23 05:59 60 14 98 08/03/23 05:45 60 16 98 08/03/23 05:45 92/52 L 08/03/23 05:30 60 14 98 08/03/23 05:30 96/58 L 08/03/23 05:15 93/52 L 08/03/23 05:15 60 17 97 08/03/23 05:00 60 13 98 08/03/23 05:00 92/53 L 08/03/23 04:45 62 17 95 08/03/23 04:45 97/56 L PG Care Time/CCT Total # of Minutes Spent Total Time Spent with Patient: Total time spent is greater than 50% in coordination of care (as documented) at patient's floor/unit and/or counseling patient: Coding Level of Care Code 38980 SUB INP/OBS CARE 2/35MIN Diagnoses Shock R57.9 Cardiac amyloidosis E85.4; I43 Atrial fibrillation, permanent I48.21 Central sleep apnea G47.31
[2023-08-03] MEDS: PHENYLEPHRINE GTT *PHARM PREP* STANDARD IV SCH (19:14)
[2023-08-03] MEDS ORDERED: APIXABAN 5 MG TABLET PO SCH (21:00)
[2023-08-03] MEDS: ACETAMINOPHEN 325 MG TAB PO PRN (22:14)
[2023-08-04 05:12] LABS: Basophils # (auto) 0.04 K/uL (0.00-0.20); Basophils % (auto) 0.2 %; Hematocrit (blood only) 31.4 % (42.0-52.0); Hemoglobin 10.5 g/dl (14.0-18.0); Immature Granulocytes # (auto) 0.17 K/uL (0.01-0.20); Lymphocytes # (auto) 0.75 K/uL (1.20-3.40); Lymphocytes % (auto) 4.3 %; Mean Corpuscular Hemoglobin 33.1 pg (25.0-34.0); Mean Corpuscular Hgb Conc 33.4 g/dL (32.0-36.0); Mean Corpuscular Volume 99.1 fL (80.0-100.0); Mean Platelet Volume 9.5 fL (9.4-12.4); Monocytes # (auto) 1.08 K/uL (0.11-0.59); Monocytes % (auto) 6.1 %; Neutrophils # (auto) 15.53 K/uL (1.40-6.50); Neutrophils % (auto) 88.4 %; Platelet Count 285 K/uL (130-400); RDW Coefficient of Variation 14.5 % (11.5-14.5); RDW Standard Deviation 53.1 fL (36.4-46.3); Red Blood Count 3.17 M/uL (4.70-6.10); White Blood Count 17.57 K/ul (4.8-10.8)
[2023-08-04 05:24] LABS: BUN Creatinine Ratio 42.5 (10-20); Bilirubin,Total 1.4 mg/dl (0.2-1.0); Calcium 8.5 mg/dl (8.6-10.3); Creatinine Clr Calc Pharmacy 58.9 ml/min; Est GFR (African American) 70.8 ml/min; Est GFR (Non-African American) 61.1 ml/min; Globulin 3.1 gm/dl (2.5-4.0); Magnesium 1.8 mg/dl (1.7-2.4); Phosphorus 2.9 mg/dl (2.5-4.9); Potassium 4.6 mmol/L (3.5-5.1); Total Protein 6.1 gm/dl (6.0-8.3)
--- NOTE | 2023-08-04 05:53 | Electrocardiogram Report ---
Test Reason : Blood Pressure : / mmHG Vent. Rate : 077 BPM Atrial Rate : 000 BPM P-R Int : 000 ms QRS Dur : 178 ms QT Int : 474 ms P-R-T Axes : 000 255 074 degrees QTc Int : 537 ms Ventricular-paced rhythm Abnormal ECG When compared with ECG of 10-MAR-2021 10:52, No significant change Confirmed by Wang Hankins ([id number]) on 08/04/2023 5:53:05 AM Referred By: REFERRED SELF Confirmed By:Wang Hankins
--- NOTE | 2023-08-04 08:29 | Critical Care Progress Note ---
Date of Service August 04, 2023 Assessment & Plan (1) Septic shock: (2) Fluid overload: (3) Ascites: (4) Staphylococcus aureus bacteremia with sepsis: (5) Compression fracture of body of thoracic vertebra: (6) FILI (acute kidney injury): (7) Cardiomyopathy: (8) Atrial fibrillation, permanent: Plan Impression: 78-year-old male with history of cardiac amyloid/restrictive cardiomyopathy, atrial fibrillation, admitted with persistent back pain, leukocytosis, hypotension and concern for potential infection. He remains pressor dependent. Blood cultures are growing gram-positive cocci which appears to be methicillin sensitive Staph aureus. Portals appear to be skin breakdown 24-hour events: Patient is continued to require vasopressor agents. Infectious disease consultation was obtained. Patient underwent diagnostic paracentesis. Bilateral heel films were obtained to rule out osteomyelitis at the recommendation of infectious disease. He is complaining of bladder spasms associated with the Ortega catheter this morning. Recommendations: 1. Neurologic: Encephalopathy, slowly clearing: Likely metabolic in etiology. Will continue to follow. Ammonia level was normal. [employer] imaging unremarkable. No indication for additional intervention or imaging currently. 2. Cardiovascular: History of cardiac amyloid. EF reduced but stable to prior echocardiograms. Lactate is normal which is reassuring however he remains hypotensive. Continue midodrine and try to wean Tristen-Synephrine to off. Case was discussed with [facility] and they do not have any additional recommendations or interventions for this patient at this point in time. Unclear endpoint. Given his reversal of flow on the echocardiogram and hepatic veins, refractory ascites, and pulmonary vascular congestion, prognosis is guarded. May be appropriate to initiate palliative care discussions however will defer this to cardiology. Little utility in right heart catheterization at this point in time. Treatment is primarily directed at diuresis which is difficult given his current pressor need. 3. Pulmonary: No current issues. History of sleep disordered breathing. He was ineffectively treated with CPAP and BiPAP in the past and is not currently compliant with therapy. May need supplemental oxygen at night. 4. ID: Methicillin sensitive bacteremia. Surveillance cultures were negative. No evidence of osteo-. He does have an indwelling pacemaker. Appreciate infectious disease consult. Transition to Ancef. Will place PICC line today as he would likely require an extended course of therapy. Can discontinue meropen em. White blood cell count slightly better today. No evidence of osteomyelitis on imaging studies of the heels. 5. Renal: Appreciate nephrology consultation. BUN and creatinine continue to improve. Hyperkalemia improving. 6. GI: Ascites is -serum ascites albumin gradient of only 0.4 show ascites does not appear consistent with portal hypertension. Cytology pending. Differential showed 17% neutrophils, 13% lymphocytes and 70% mesothelial cells with a total cell count of only 78. Not consistent with an infectious etiology. Discontinue meropenem. Unclear if abdominal amyloid could potentially cause this pattern. No specific therapy would be entertained other than diuretics. 7. Endocrine: No cortisol was normal. Glycemic control per protocol. 8. Heme-onc: Leukocytosis, secondary to infection. He does have mild anemia which is worse compared to his baseline. No evidence of active ongoing bleeding. No indication for transfusion currently. Unclear significance of the MRI finding. Outpatient bone scan/PET scan may be appropriate 9. Musculoskeletal: Acute/subacute compression fractures as well as severe stenosis. Will consult orthospine Patient is critically ill at this point in time with multiorgan system dysfunction. Significant possibility for clinical deterioration exists. Palliative care discussions to define goals of therapy would be highly appropr iate in this patient. A total of 65 minutes in critical care time was spent in evaluation management and coordination of care for this critically ill patient. Admission and Anticipated Discharge Date Admission Date: August 02, 2023 Subjective Patient seen and examined. EMR reviewed. Discussed with bedside critical care nurse and on multidisciplinary rounds. The patient's biggest complaint this morning is bladder spasms related to the Ortega catheter. He is otherwise without complaints and specifically denies any chest pain palpitations or shortness of breath. No cough or sputum production. No abdominal pain. He felt no different after having the ascites drained y esterday. He is not experiencing any nausea or vomiting. No additional diarrhea. His back pain is reasonably well-controlled. Case was discussed with infectious disease and cardiology as well as neurology. Review of Systems Review of Systems: All systems reviewed & are unremarkable except as noted in Subjective Physical Exam Constitutional: WD/WN, vitals as above + thin Neck: trachea midline, no thyromegaly Respiratory: normal respiratory effort, lungs clear to auscultation Cardiovascular: Rate/Rhythm: regular rate Heart Sounds: normal S1, normal S2 and + murmur Extremities: + edema Gastrointestinal (Abdomen): Inspection/Auscultation: + abdomen distended and + abdominal edema Percussion/Palpation: + ascites Musculoskeletal: Extremities: extremities normal to inspection Lymphatic: no cervical lymphadenopathy Results & Data Results & Data Vital Signs (Past 12 Hours) Vital Signs Temp Pulse Resp BP Pulse Ox 08/04/23 06:00 62 13 100 08/04/23 05:45 103/68 08/04/23 05:45 61 12 08/04/23 05:30 104/62 08/04/23 05:30 60 15 08/04/23 05:15 62 18 08/04/23 05:15 106/65 08/04/23 05:00 66 10 L 08/04/23 05:00 111/70 08/04/23 04:46 61 15 08/04/23 04:46 107/67 08/04/23 04:45 62 17 08/04/23 04:45 106/68 08/04/23 04:30 60 16 08/04/23 04:30 108/66 08/04/23 04:15 60 18 08/04/23 04:15 100/59 L 08/04/23 04:00 92/59 L 08/04/23 04:00 60 14 08/04/23 03:45 60 12 08/04/23 03:45 91/57 L 08/04/23 03:30 61 15 08/04/23 03:30 106/65 08/04/23 03:15 61 17 100 08/04/23 03:15 99/61 L 08/04/23 03:00 60 6 L 100 08/04/23 03:00 102/60 08/04/23 02:45 60 18 97 08/04/23 02:30 65 21 97 08/04/23 02:15 60 14 89 L 08/04/23 02:00 60 15 98 08/04/23 02:00 94/57 L 08/04/23 01:49 60 10 L 100 08/04/23 01:45 79/50 L 08/04/23 01:44 60 17 97 08/04/23 01:30 60 29 H 92 08/04/23 01:30 83/57 L 08/04/23 01:16 62 23 97 08/04/23 01:00 36.4 C L 08/04/23 01:00 61 12 98 08/04/23 01:00 91/58 L 08/04/23 00:45 82/48 L 08/04/23 00:45 60 28 H 94 08/04/23 00:30 91/51 L 08/04/23 00:30 60 21 93 08/04/23 00:15 60 13 94 08/04/23 00:00 36.4 C L 08/04/23 00:00 60 08/04/23 00:00 80/53 L 08/04/23 00:00 60 20 98 08/03/23 23:45 80/50 L 08/03/23 23:45 60 12 98 08/03/23 23:36 60 14 91 08/03/23 23:36 78/50 L 08/03/23 23:33 60 13 91 08/03/23 23:33 77/47 L 08/03/23 23:30 60 35 H 08/03/23 23:15 60 28 H 88 L 08/03/23 23:00 36.4 C L 08/03/23 23:00 60 24 95 08/03/23 22:45 85/54 L 08/03/23 22:45 60 18 97 08/03/23 22:40 61 13 96 08/03/23 22:40 81/53 L 08/03/23 22:37 66 17 96 08/03/23 22:37 82/48 L 08/03/23 22:30 92/49 L 08/03/23 22:30 75 20 95 08/03/23 22:15 64 15 97 08/03/23 22:15 77/45 L 08/03/23 22:00 36.4 C L 08/03/23 22:00 84/52 L 08/03/23 22:00 61 17 96 08/03/23 21:45 79/50 L 08/03/23 21:45 60 21 96 08/03/23 21:34 103/57 L 08/03/23 21:34 88 17 77 L 08/03/23 21:30 65 17 92 08/03/23 21:15 88 20 90 08/03/23 21:00 36.4 C L 08/03/23 21:00 60 17 94 08/03/23 21:00 110/75 08/03/23 20:47 121/80 08/03/23 20:47 64 18 95 08/03/23 20:45 61 17 97 08/03/23 20:32 101/69 08/03/23 20:32 68 16 97 08/03/23 20:30 71 22 95 Critical Care Results & Data Vital Signs (Past 12 Hours) Vital Signs Temp Pulse Resp BP Pulse Ox 08/04/23 06:00 62 13 100 08/04/23 05:45 103/68 08/04/23 05:45 61 12 08/04/23 05:30 104/62 08/04/23 05:30 60 15 08/04/23 05:15 62 18 08/04/23 05:15 106/65 08/04/23 05:00 66 10 L 08/04/23 05:00 111/70 08/04/23 04:46 61 15 08/04/23 04:46 107/67 08/04/23 04:45 62 17 08/04/23 04:45 106/68 08/04/23 04:30 60 16 08/04/23 04:30 108/66 08/04/23 04:15 60 18 08/04/23 04:15 100/59 L 08/04/23 04:00 92/59 L 08/04/23 04:00 60 14 08/04/23 03:45 60 12 08/04/23 03:45 91/57 L 08/04/23 03:30 61 15 08/04/23 03:30 106/65 08/04/23 03:15 61 17 100 08/04/23 03:15 99/61 L 08/04/23 03:00 60 6 L 100 08/04/23 03:00 102/60 08/04/23 02:45 60 18 97 08/04/23 02:30 65 21 97 08/04/23 02:15 60 14 89 L 08/04/23 02:00 60 15 98 08/04/23 02:00 94/57 L 08/04/23 01:49 60 10 L 100 08/04/23 01:45 79/50 L 08/04/23 01:44 60 17 97 08/04/23 01:30 60 29 H 92 08/04/23 01:30 83/57 L 08/04/23 01:16 62 23 97 08/04/23 01:00 36.4 C L 08/04/23 01:00 61 12 98 05/10/24 01:00 91/58 L 08/04/23 00:45 82/48 L 08/04/23 00:45 60 28 H 94 08/04/23 00:30 91/51 L 08/04/23 00:30 60 21 93 08/04/23 00:15 60 13 94 08/04/23 00:00 36.4 C L 08/04/23 00:00 60 08/04/23 00:00 80/53 L 08/04/23 00:00 60 20 98 08/03/23 23:45 80/50 L 08/03/23 23:45 60 12 98 08/03/23 23:36 60 14 91 08/03/23 23:36 78/50 L 08/03/23 23:33 60 13 91 08/03/23 23:33 77/47 L 08/03/23 23:30 60 35 H 08/03/23 23:15 60 28 H 88 L 08/03/23 23:00 36.4 C L 08/03/23 23:00 60 24 95 08/03/23 22:45 85/54 L 08/03/23 22:45 60 18 97 08/03/23 22:40 61 13 96 08/03/23 22:40 81/53 L 08/03/23 22:37 66 17 96 08/03/23 22:37 82/48 L 08/03/23 22:30 92/49 L 08/03/23 22:30 75 20 95 08/03/23 22:15 64 15 97 08/03/23 22:15 77/45 L 08/03/23 22:00 36.4 C L 08/03/23 22:00 84/52 L 08/03/23 22:00 61 17 96 08/03/23 21:45 79/50 L 08/03/23 21:45 60 21 96 08/03/23 21:34 103/57 L 08/03/23 21:34 88 17 77 L 08/03/23 21:30 65 17 92 08/03/23 21:15 88 20 90 08/03/23 21:00 36.4 C L 08/03/23 21:00 60 17 94 08/03/23 21:00 110/75 08/03/23 20:47 121/80 08/03/23 20:47 64 18 95 08/03/23 20:45 61 17 97 08/03/23 20:32 101/69 08/03/23 20:32 68 16 97 08/03/23 20:30 71 22 95 Lab & Micro Results (Past 24 Hours) RBC 3.17 M/uL (4.70-6.10) L 08/04/23 WBC 17.57 K/ul (4.8-10.8) H 08/04/23 Hgb 10.5 g/dl (14.0-18.0) L 08/04/23 Hct 31.4 % (42.0-52.0) L 08/04/23 MCV 99.1 fL (80.0-100.0) 08/04/23 MCH 33.1 pg (25.0-34.0) 08/04/23 MCHC 33.4 g/dL (32.0-36.0) 08/04/23 RDW Standard Deviation 53.1 fL (36.4-46.3) H 08/04/23 RDW Coefficient of Variation 14.5 % (11.5-14.5) 08/04/23 Plt Count 285 K/uL (130-400) 08/04/23 MPV 9.5 fL (9.4-12.4) 08/04/23 Neutrophils (%) (Auto) 88.4 % 08/04/23 Lymphocytes (%) (Auto) 4.3 % 08/04/23 Monocytes # (Auto) 1.08 K/uL (0.11-0.59) H 08/04/23 Eosinophils # (Auto) 0.00 K/uL (0.00-0.50) 08/04/23 Immature Granulocyte % (Auto) 1.0 % 08/04/23 Neutrophils # (Auto) 15.53 K/uL (1.40-6.50) H 08/04/23 Lymphocytes # (Auto) 0.75 K/uL (1.20-3.40) L 08/04/23 Monocytes # (Auto) 1.08 K/uL (0.11-0.59) H 08/04/23 Eosinophils # (Auto) 0.00 K/uL (0.00-0.50) 08/04/23 Basophils # (Auto) 0.04 K/uL (0.00-0.20) 08/04/23 Immature Granulocyte # (Auto) 0.17 K/uL (0.01-0.20) 4 Na 137 mmol/L (136-145) 08/04/23 K 4.6 mmol/L (3.5-5.1) 08/04/23 Cl 112 mmol/L (98-107) H 08/04/23 CO2 18 mmol/L (21-32) L 08/04/23 Anion Gap 7 (3-11) 08/04/23 BUN 48 mg/dl (6-23) H 08/04/23 Creatinine 1.13 mg/dl (0.6-1.4) 08/04/23 Estimated GFR ( Amer) 70.8 ml/min 08/04/23 Estimated GFR (Non-Af Amer) 61.1 ml/min 08/04/23 BUN/Creatinine Ratio 42.5 (10-20) H 08/04/23 Glu 108 mg/dl (70-99(Fasting)) H 08/04/23 Ca 8.5 mg/dl (8.6-10.3) L 08/04/23 Phosphorus Level 2.9 mg/dl (2.5-4.9) 08/04/23 Total Bilirubin 1.4 mg/dl (0.2-1.0) H 08/04/23 AST 20 U/L (13-39) 08/04/23 ALT 15 U/L (7-52) 08/04/23 Alkaline Phosphatase 144 U/L (34-104) H 08/04/23 TP 6.1 gm/dl (6.0-8.3) 08/04/23 Albumin 3.0 gm/dl (3.4-5.0) L 08/04/23 Globulin 3.1 gm/dl (2.5-4.0) 08/04/23 Albumin/Globulin Ratio 1.0 (0.9-2) 08/04/23 Mg 1.8 mg/dl (1.7-2.4) 08/04/23 04:44 Calcium Level 8.5 mg/dl (8.6-10.3) L 08/04/23 04:44 Microbiology 08/02/23 16:09 Aerobic Blood Culture - Preliminary Blood No growth in Aerobic bottle after 24 hours. Anaerobic Blood Culture - Preliminary Staphylococcus species 08/02/23 16:06 Aerobic Blood Culture - Preliminary Blood No growth in Aerobic bottle after 24 hours. Anaerobic Blood Culture - Final 08/03/23 Unknown Gram Stain - Final Peritoneal Fluid Diagnostic Findings (Past 24 Hours) Calcaneus X-Ray 08/03/23 14:19 XR calcaneus LT min 2V CLINICAL HISTORY: poss osteo TECHNIQUE: 2 views of the left calcaneus were obtained. Comparison: None available at the time of this dictation. FINDINGS: No evidence of bony erosion is seen. The alignment is anatomic. The joint spaces are well preserved. No soft tissue abnormality is identified. IMPRESSION: No radiographic evidence of osteomyelitis. If clinical concern remains, MRI is a more sensitive modality. ACT 112: Negative or not required by law. Electronically signed by: Nino Ray M.D. 08/03/2023 3:03 PM Calcaneus X-Ray 08/03/23 14:19 RIGHT CALCANEUS 2 VIEWS CLINICAL HISTORY: Right heel pain. Infection. FINDINGS: AP and lateral views of the right calcaneus are correlated with radiograph of the right foot dated 05/27/2016. The skeletal structures are osteopenic. There is no radiographic evidence of calcaneal fracture. There are large dorsal and plantar heel spurs. No erosive change is seen. An os trigonum is incidentally noted. There is soft tissue edema around the heel with a dorsal wound. No radiodense foreign body is identified. There is atherosclerotic calcification of the regional arteries. IMPRESSION: 1. No acute bony abnormality is identified. 2. Soft tissue edema suggests cellulitis and there is a wound along the posterior aspect of the heel. 3. Large heel spurs. Electronically signed by: Luis Daniel Marques M.D. 08/03/2023 2:56 PM I & O Totals 24 Hours 08/03/23 08/04/23 08/05/23 06:59 06:59 06:59 Intake Total 4086.64 / 4086.64 3892.08 / 3892.08 250.000 / 250.000 Output Total 2900 / 2900 3176 / 3176 Balance 1186.64 / 1186.64 716.08 / 716.08 250.000 / 250.000 Cumulative 08/02/23 11:08 thru 08/04/23 08:00 Intake Total 8228.720 Output Total 6076 Balance 2152.720 RT Ventilator Mngmt (Last Documented) Ventilator Ordered Settings Respiratory Rate 13 08/04/23 06:00 Ventilator - PT Measurements Respiratory Rate 13 Coding Level of Care Code 60410 CRITICAL CARE 1ST 30-74M Diagnoses Septic shock A41.9; R65.21 Fluid overload E87.70 Hypervolemia type: unspecified Ascites R18.8 Staphylococcus aureus bacteremia with sepsis A41.01 Compression fracture of body of thoracic vertebra S22.000A FILI (acute kidney injury) N17.9 Cardiomyopathy I42.9 Cardiomyopathy type: unspecified Atrial fibrillation, permanent I48.21 (2) Fluid overload Hypervolemia type: unspecified Qualified Code(s): E87.70 - Fluid overload, unspecified (7) Cardiomyopathy Cardiomyopathy type: unspecified Qualified Code(s): I42.9 - Cardiomyopathy, unspecified
[2023-08-04] MEDS: oxyBUTYnin chloride 5 MG TAB PO SCH ×2 (09:07→22:10)
[2023-08-04] MEDS: APIXABAN 5 MG TABLET PO SCH (09:07)
[2023-08-04] MEDS: ceFAZolin 2000MG 2,000 MG/15 ML SYR IV SCH (09:23)
--- NOTE | 2023-08-04 10:38 | Nephrology Progress Note ---
Date of Service August 04, 2023 Assessment & Plan (1) FILI (acute kidney injury): Plan: Hemodynamically mediated rise in creatinine due to intravascular volume depletion and decreased EAV. Creatinine normalized. Good urine output. Electrolytes normal. HCO3 remains slightly low but kidney function reasonable and hemodynamics improved. No HCO3 supplement is required at this time. Medications are appropriate for kidney function. Losartan and spironolactone hav e been held. Gabapentin held. Continue to hold RAASi pending improvement in blood pressure: MRA or ARB would not be tolerated at this time. Defer diuretics until phenylephrine gtt has been weaned. Kidney function has normalized. Management of infection, cardiac amyloidosis, atrial fibrillation/flutter per hospitalist, pharmacy care coordinator, and cardiology. Nephrology will sign off. Please call with questions or concerns. Ortega management per ICU protocol. (2) Hypotension: Plan: Management of suspected sepsis and cardiac amyloidosis. Metoprolol, losartan, and spironolactone held. Avoid aggressive IV hydration. Phenylephrine is being weaned with Midodrine. (3) Heart failure with mid-range ejection fraction: Plan: Management per cardiology. Volume status acceptable. Diuretics held pending improved BP. (4) Cardiac amyloidosis: Admission and Anticipated Discharge Date Admission Date: August 02, 2023 Subjective No acute events overnight. No fevers or chills. Remains on phenylephrine gtt. Ortega draining clear yellow urine. Appetite poor. No abdominal pain. No constipation. Denies shortness of breath. Experiencing some bladder spasms and sacral discomfort. Notable weakness in legs when attempting to stand yesterday. I discussed the medical history and plan of care with Dr. Russell and Dr. Parks this AM. Review of Systems Review of Systems: All systems reviewed & are unremarkable except as noted in HPI & below Physical Exam Constitutional: + thin, + frail appearing and comfortabl e; no acute distress Eyes: + anicteric sclerae; no conjunctival abn ormality Neck: normal visual inspection and trachea midline Respiratory: normal respiratory effort Cardiovascular: Rate/Rhythm: regular rate Vessels: + JVD Extremities: + edema (1-2+ pitting BL LE) Skin: no jaundice Neurologic: Motor/Sensory: no tremor and no asterixis Psychiatric: Orientation: alert and oriented x 3 Results & Data Vital Signs (Past 12 Hours) Vital Signs Temp Pulse Resp BP Pulse Ox O2 Del Method O2 Flow Rate 08/04/23 08:15 122/83 08/04/23 08:15 61 14 100 08/04/23 08:00 60 17 100 08/04/23 08:00 119/77 08/04/23 07:55 Nasal Cannula 2 08/04/23 07:45 63 16 99 08/04/23 07:45 114/75 08/04/23 07:30 60 14 99 08/04/23 07:30 112/77 08/04/23 07:15 60 16 98 08/04/23 07:15 108/70 08/04/23 07:01 60 14 100 08/04/23 07:00 60 17 100 08/04/23 06:00 62 13 100 08/04/23 05:45 103/68 08/04/23 05:45 61 12 08/04/23 05:30 104/62 08/04/23 05:30 60 15 08/04/23 05:15 62 18 08/04/23 05:15 106/65 08/04/23 05:00 66 10 L 08/04/23 05:00 111/70 08/04/23 04:46 61 15 08/04/23 04:46 107/67 08/04/23 04:45 62 17 08/04/23 04:45 106/68 08/04/23 04:30 60 16 08/04/23 04:30 108/66 08/04/23 04:15 60 18 08/04/23 04:15 100/59 L 08/04/23 04:00 92/59 L 08/04/23 04:00 60 14 08/04/23 03:45 60 12 08/04/23 03:45 91/57 L 08/04/23 03:30 61 15 08/04/23 03:30 106/65 08/04/23 03:15 61 17 100 08/04/23 03:15 99/61 L 08/04/23 03:00 60 6 L 100 08/04/23 03:00 102/60 08/04/23 02:45 60 18 97 08/04/23 02:30 65 21 97 08/04/23 02:15 60 14 89 L 08/04/23 02:00 60 15 98 08/04/23 02:00 94/57 L 08/04/23 01:49 60 10 L 100 08/04/23 01:45 79/50 L 08/04/23 01:44 60 17 97 08/04/23 01:30 60 29 H 92 08/04/23 01:30 83/57 L 08/04/23 01:16 62 23 97 08/04/23 01:00 36.4 C L 08/04/23 01:00 61 12 98 08/04/23 01:00 91/58 L 08/04/23 00:45 82/48 L 08/04/23 00:45 60 28 H 94 08/04/23 00:30 91/51 L 08/04/23 00:30 60 21 93 08/04/23 00:15 60 13 94 08/04/23 00:00 36.4 C L 08/04/23 00:00 60 08/04/23 00:00 80/53 L 08/04/23 00:00 60 20 98 08/03/23 23:45 80/50 L 08/03/23 23:45 60 12 98 08/03/23 23:36 60 14 91 08/03/23 23:36 78/50 L 08/03/23 23:33 60 13 91 08/03/23 23:33 77/47 L 08/03/23 23:30 60 35 H 08/03/23 23:15 60 28 H 88 L 08/03/23 23:00 36.4 C L 08/03/23 23:00 60 24 95 08/03/23 22:45 85/54 L 08/03/23 22:45 60 18 97 08/03/23 22:40 61 13 96 08/03/23 22:40 81/53 L 08/03/23 22:37 66 17 96 08/03/23 22:37 82/48 L 08/03/23 22:30 92/49 L 08/03/23 22:30 75 20 95 Laboratory Results Laboratory Results - last 24 hr 08/03/23 08/03/23 08/03/23 11:35 12:18 16:26 WBC RBC Hgb Hct MCV MCH MCHC RDW Std Deviation RDW Coeff of Mariel Plt Count MPV Immature Gran % (Auto) Neut % (Auto) Lymph % (Auto) Gilmer % (Auto) Eos % (Auto) Baso % (Auto) Neut # (Auto) Lymph # (Auto) [place]mer # (Auto) Eos # (Auto) Baso # (Auto) Immature Gran # (Auto) Sodium Potassium Chloride Carbon Dioxide Anion Gap BUN Creatinine Est Cr Clr Drug Dosing Est GFR ( Amer) Est GFR (Non-Af Amer) BUN/Creatinine Ratio Glucose POC Glucose 90 123 H Calcium Phosphorus Magnesium Total Bilirubin AST ALT Alkaline Phosphatase Troponin I High Sens 109.5 H* B-Natriuretic Peptide Total Protein Albumin Globulin Albumin/Globulin Ratio Procalcitonin 08/03/23 08/04/23 08/04/23 20:33 04:44 05:43 WBC 17.57 H RBC 3.17 L Hgb 10.5 L Hct 31.4 L MCV 99.1 MCH 33.1 MCHC 33.4 RDW Std Deviation 53.1 H RDW Coeff of Mariel 14.5 Plt Count 285 MPV 9.5 Immature Gran % (Auto) 1.0 Neut % (Auto) 88.4 Lymph % (Auto) 4.3 Gilmer % (Auto) 6.1 Eos % (Auto) 0.0 Baso % (Auto) 0.2 Neut # (Auto) 15.53 H Lymph # (Auto) 0.75 L Gilmer # (Auto) 1.08 H Eos # (Auto) 0.00 Baso # (Auto) 0.04 Immature Gran # (Auto) 0.17 Sodium 137 Potassium 4.6 Chloride 112 H Carbon Dioxide 18 L Anion Gap 7 BUN 48 H D Creatinine 1.13 Est Cr Clr Drug Dosing 58.9 Est GFR ( Amer) 70.8 Est GFR (Non-Af Amer) 61.1 BUN/Creatinine Ratio 42.5 H Glucose 108 H POC Glucose 116 H 96 Calcium 8.5 L Phosphorus 2.9 Magnesium 1.8 Total Bilirubin 1.4 H AST 20 ALT 15 Alkaline Phosphatase 144 H Troponin I High Sens B-Natriuretic Peptide 1145 H Total Protein 6.1 Albumin 3.0 L Globulin 3.1 Albumin/Globulin Ratio 1.0 Procalcitonin 5.16 H 08/04/23 07:33 WBC RBC Hgb Hct MCV MCH MCHC RDW Std Deviation RDW Coeff of Mariel Plt Count MPV Immature Gran % (Auto) Neut % (Auto) Lymph % (Auto) [place] % (Auto) Eos % (Auto) Baso % (Auto) Neut # (Auto) Lymph # (Auto) [place]mer # (Auto) Eos # (Auto) Baso # (Auto) Immature Gran # (Auto) Sodium Potassium Chloride Carbon Dioxide Anion Gap BUN Creatinine Est Cr Clr Drug Dosing Est GFR ( Amer) Est GFR (Non-Af Amer) BUN/Creatinine Ratio Glucose POC Glucose 89 Calcium Phosphorus Magnesium Total Bilirubin AST ALT Alkaline Phosphatase Troponin I High Sens B-Natriuretic Peptide Total Protein Albumin Globulin Albumin/Globulin Ratio Procalcitonin PG Care Time/CCT Total # of Minutes Spent Total Time Spent with Patient: Total time spent is greater than 50% in coordination of care (as documented) at patient's floor/unit and/or counseling patient: Coding Level of Care Code 64931 SUB INP/OBS CARE 350MIN Diagnoses FILI (acute kidney injury) N17.9 Hypotension I95.9 Hypotension type: unspecified hypotension type Heart failure with mid-range ejection fraction I50.22 Cardiac amyloidosis E85.4; I43 (2) Hypotension Hypotension type: unspecified hypotension type Qualified Code(s): I95.9 - Hypotension, unspecified
[2023-08-04] MEDS: PHENYLEPHRINE/NSS 25 MG/250 ML BAG IV SCH (10:57)
[2023-08-04] MEDS: PHENYLEPHRINE HCL 25 MG/250 ML NSS IV ONE (10:58)
--- NOTE | 2023-08-04 13:30 | Infectious Disease Progress Nt ---
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 He has a history of progressive gait instability for which she follows with neurology. He endorses a fall a few months ago but not recently. He denies any recent trauma to the back, fever, chills, change in bowel or urinary habits, shortness of breath, nausea, vomiting. He reports some weight loss. In the ED, he was afebrile but hypotensive with SBPs in the 70s80s. Labs noted for a WBC of 15 K--> 20.26K, BUN 92, creatinine 1.83, procalcitonin 1.85. Blood cultures obtained: MSSA on bio fire. TTE with small pericardial effusion without evidence of tamponade physiology. No valve vegetations. EF 45 to 50%. CTAB showed a large amount of ascites. Thoracic spine shows T12 moderate compression which may be associated with avascular necrosis. Possible bony metastatic disease notably at the left T2 pedicle. No discitis, osteomyelitis, epidural abscess.. Lumbar spine shows mild L1 compression fracture and with severe diffuse degenerative disc disease with severe central spinal stenosis at L3-L4. He was started on pressors (Tristen-Synephrine). He was started on meropenem and vancomycin. ID consulted for bacteremia. He was evaluated in the ICU. On my initial exam, he complains of gluteal cleft pain and bilateral heel pain left greater than right. He denies any open draining wounds Micro: Blood cultures 08/01 Staph sp (MSSA -biofire no MECA bio fire) Urine culture 08/02 NG Blood culture 08/02NGTD Ascites fluid 08/02 few WBCs seen, no organisms seen, cultures NGTD Antibiotics: Vancomycin Meropenem 08/01-ongoing #Septic shock, on pressors #MSSA and staph species (+ on BCID) bacteremia #Ascites, No SBP #Heel/Foot and gluteal cleft SSTI/ cellulitis #Multiple skin abnormalities #PPM #Acute on chronic back pain # Leukocytosis #FILI MSSA bacteremia is likely secondary to a skin source. He has multiple skin abnormalities and areas of cellulitis on exam. Left heel/ankle and gluteal cleft cellulitis. He has several area of skin break down. Pacemaker in place but no s/o infection on exam.TTE with no valvular vegetations. No other hardware or prosthetics. He has acute on chronic back pain No evidence of osteomyel itis/discitis/spinal abscess on spine MRI imaging. Imaging shows T12 compression which may be associated with avascular necrosis. Possible bony metastatic disease notably at the left T2 pedicles and lumbar spinal stenosis. He has ascites on exam but is not febrile and abdomen w/o tenderness pain. Ascites fluid with 78 WBCs. I doubt SBP. He has no central lines . BL LE xray with findings c/f cellulitis Recommendations. Discontinue Meropenem and Start Ancef 2 giv q8h Follow UP staph ID and sensi on BC i ( MSSA per BCID) Follow up Repeat BC 08/02 Wound care IF BC persistently positive, obtain CORONA Would not place picc until BC sterile for at least 48-72 hours Consider nuclear medicine bone scan or PET CT givne spinal imaging abnormalities ID continue to follow. ID will not round over the weekend. Please call covering provider at [phone] Hernandez will cover starting 08/06 Ras Whitman MD, MPH Infectious Disease ID Connect [facility], ID Division Admission and Anticipated Discharge Date Admission Date: August 02, 2023 Subjective This patient recommendation is based on a telemedicine consult request which was completed asynchronously through chart review and information provided by the primary physician. The patient was not seen or examined today. The evaluation is consultative in nature and all patient care and treatment decisions can either be accepted or rejected by the patient's primary hospital-based treating physician using their own independent medical judgment for their patient. Time Spent Reviewing Chart: 11 - 20 minutes Afebrile Foot xray shows cellulitis Repeat BC sterile so fare WBc 17.57 Cr 1.13 Results & Data Vital Signs (Past 12 Hours) Vital Signs Pulse Resp BP Pulse Ox O2 Del Method O2 Flow Rate 08/04/23 11:15 60 18 99 08/04/23 11:15 109/76 08/04/23 11:00 60 16 96 08/04/23 11:00 90/61 L 08/04/23 10:45 106/69 08/04/23 10:45 60 19 98 08/04/23 10:30 105/68 08/04/23 10:30 61 17 94 08/04/23 10:15 99/67 L 08/04/23 10:15 61 12 97 08/04/23 10:00 60 16 100 08/04/23 10:00 92/59 L 08/04/23 09:45 60 18 99 08/04/23 09:45 86/53 L 08/04/23 09:32 64 19 99 08/04/23 09:32 110/55 L 08/04/23 09:30 69 19 100 08/04/23 09:15 112/73 08/04/23 09:15 62 16 97 08/04/23 09:00 84/61 L 08/04/23 09:00 60 16 90 08/04/23 08:45 60 16 100 08/04/23 08:45 118/77 08/04/23 08:30 60 19 99 08/04/23 08:30 117/69 08/04/23 08:15 122/83 08/04/23 08:15 61 14 100 08/04/23 08:00 60 17 100 08/04/23 08:00 119/77 08/04/23 07:55 Nasal Cannula 2 08/04/23 07:45 63 16 99 08/04/23 07:45 114/75 08/04/23 07:30 60 14 99 08/04/23 07:30 112/77 08/04/23 07:15 60 16 98 08/04/23 07:15 108/70 08/04/23 07:01 60 14 100 08/04/23 07:00 60 17 100 08/04/23 06:00 62 13 100 08/04/23 05:45 103/68 08/04/23 05:45 61 12 08/04/23 05:30 104/62 08/04/23 05:30 60 15 08/04/23 05:15 62 18 08/04/23 05:15 106/65 08/04/23 05:00 66 10 L 08/04/23 05:00 111/70 08/04/23 04:46 61 15 08/04/23 04:46 107/67 08/04/23 04:45 62 17 08/04/23 04:45 106/68 08/04/23 04:30 60 16 08/04/23 04:30 108/66 08/04/23 04:15 60 18 08/04/23 04:15 100/59 L 08/04/23 04:00 92/59 L 08/04/23 04:00 60 14 08/04/23 03:45 60 12 08/04/23 03:45 91/57 L 08/04/23 03:30 61 15 08/04/23 03:30 106/65 08/04/23 03:15 61 17 100 08/04/23 03:15 99/61 L 08/04/23 03:00 60 6 L 100 08/04/23 03:00 102/60 08/04/23 02:45 60 18 97 08/04/23 02:30 65 21 97 08/04/23 02:15 60 14 89 L 08/04/23 02:00 60 15 98 08/04/23 02:00 94/57 L 08/04/23 01:49 60 10 L 100 08/04/23 01:45 79/50 L 08/04/23 01:44 60 17 97 08/04/23 01:30 60 29 H 92 08/04/23 01:30 83/57 L Laboratory Results Short CBC 08/04/23 Range/Units 04:44 WBC 17.57 H (4.8-10.8) K/ul Hgb 10.5 L (14.0-18.0) g/dl Hct 31.4 L (42.0-52.0) % Plt Count 285 (130-400) K/uL BMP 08/04/23 04:44 Sodium 137 Potassium 4.6 Chloride 112 H Carbon Dioxide 18 L BUN 48 H D Creatinine 1.13 Glucose 108 H Calcium 8.5 L Liver Function 08/04/23 Range/Units 04:44 Total Bilirubin 1.4 H (0.2-1.0) mg/dl AST 20 (13-39) U/L ALT 15 (7-52) U/L Alkaline Phosphatase 144 H (34-104) U/L Albumin 3.0 L (3.4-5.0) gm/dl Microbiology 08/02/23 16:09 Blood Aerobic Blood Culture - Preliminary No growth in Aerobic bottle after 48 hours. 08/02/23 16:09 Blood Anaerobic Blood Culture - Preliminary Staphylococcus species 08/02/23 16:06 Blood Aerobic Blood Culture - Preliminary No growth in Aerobic bottle after 48 hours. 08/02/23 16:06 Blood Anaerobic Blood Culture - Final 08/03/23 09:29 Urine,Clean Catch Urine Culture - Preliminary No growth - Less than 1,000 colonies/mL, Final report to follow. 08/03/23 10:02 Blood Aerobic Blood Culture - Preliminary No growth in Aerobic bottle after 24 hours. 08/03/23 10:02 Blood Anaerobic Blood Culture - Preliminary No growth in Anaerobic bottle after 24 hours. 08/03/23 09:56 Blood Aerobic Blood Culture - Preliminary No growth in Aerobic bottle after 24 hours. 08/03/23 09:56 Blood Anaerobic Blood Culture - Preliminary No growth in Anaerobic bottle after 24 hours. 08/03/23 Unknown Peritoneal Fluid Gram Stain - Final 08/03/23 Unknown Peritoneal Fluid Aerobic and Anaerobic Culture - Preliminary No growth to date. Diagnostic Findings Chest X-Ray 08/02/23 11:55 XR chest 1V portable CLINICAL HISTORY: weakness COMPARISON STUDY: Chest radiograph March 18, 2023. FINDINGS: There is no pneumothorax or pleural effusion. Cardiomegaly is unchanged. A left subclavian pacer is in place. There is no radiographic evidence for pulmonary edema. There is no consolidation. A mildly displaced fracture of the anterior right sixth rib is new since prior chest radiograph of March 18, 2023. IMPRESSION: 1. Stable cardiomegaly. No evidence for pulmonary edema. 2. Mildly displaced fracture of the anterior right sixth rib. The appearance favors a subacute fracture. No pneumothorax. ACT 112: Negative or not required by law. Electronically signed by: Joshua Piña M.D. 08/02/2023 12:50 PM Abdomen/Pelvis CT 08/02/23 12:[address] WITHOUT CONTRAST CT DOSE: 2687.54 mGy.cm HISTORY: weakness, renal failure TECHNIQUE: Multiaxial CT images of the abdomen and pelvis were performed without contrast. A dose lowering technique was utilized adhering to the principles of ALARA. COMPARISON STUDY: Abdomen and pelvis CT 03/10/2021. FINDINGS: The lung bases will be reported on the same day chest CT. Bibasilar linear densities favor subsegmental atelectasis. There are trace bilateral pleural effusions. The heart remains enlarged. Pacemaker wires are noted. No pneumoperitoneum. No pneumatosis. Slightly displaced distal sacral fracture which is likely subacute. There is a mild to moderate superior endplate compression fracture at T12 which appears subacute. Multiple bilateral rib fractures most pronounced on the right which also appear to represent healing/subacute fractures. No definite acute fractures identified. Diffuse body wall edema. The gallbladder surgically absent. The unenhanced liver, pancreas, spleen, and adrenal glands unremarkable. Bilateral renal cysts again noted. The dominant 7.5 cm cyst within the left upper pole demonstrates mural calcification. There is a punctate stone within the lower pole the left kidney. No hydronephrosis. Decreased attenuation within the blood pool suggesting underlying anemia. No retroperitoneal lymphadenopathy. Normal caliber abdominal aorta. No pelvic lymphadenopathy. There is a large amount of ascites which has progressed. Normal bladder. The prostate gland remains enlarged. Suboptimal evaluation for bowel pathology due to the lack of intravenous and oral contrast. However, there is no definite bowel wall thickening or obstruction. Colonic diverticulosis. No evidence for acute diverticulitis. Visualized appendix is unremarkable. IMPRESSION: 1. Interval progression of the fluid overload. This includes a large amount of ascites which has progressed. 2. No definite bowel wall thickening or obstruction. 3. Left-sided nephrolithiasis. No ureteral stones. No hydronephrosis. 4. Multiple subacute/healing fractures as described above. No acute fractures. 5. Additional findings as described above. ACT 112: Negative or not required by law. Electronically signed by: Caleb Hogan M.D. 08/02/2023 2:[address] 08/02/23 12:34 CT chest diagnostic wo con CLINICAL HISTORY: weakness, renal failure TECHNIQUE: Multidetector row helical CT of the chest was performed. Coronal and sagittal reformations were obtained. Automated dose lowering techniques and/or adjustment according to patient size were utilized for this exam. Comparison: Comparison is made to chest radiograph 08/02/2023 FINDINGS: Lungs and pleura: Atelectasis and mild interlobular septal thickening are seen in the dependent portions of the lungs. Heart and pericardium: There is cardiomegaly without evidence of pericardial effusion. Vessels: Pulmonary trunk measures 37 mm. Gas is seen in the subclavian vein, external jugular vein, and pulmonary trunk, likely due to intravenous injection. Mediastinum and idalia: Subcentimeter lymph nodes are seen. Chest wall and lower neck: Unremarkable. Abdomen: For findings below the diaphragm, please refer to CT of the abdomen dated the same. Bones: Degenerative changes in the thoracic spine. Subacute appearing fracture of the lateral right sixth, seventh, and eighth ribs. IMPRESSION: 1. Cardiomegaly with possible moderate pulmonary edema. 2. Subacute right rib fractures. ACT 112: Negative or not required by law. Electronically signed by: Nino Ray M.D. 08/02/2023 2:[address] 08/02/23 12:34 CT OF THE HEAD WITHOUT CONTRAST CLINICAL HISTORY: Weakness. COMPARISON STUDY: Head CT March 18, 2023. TECHNIQUE: Helical axial images of the head were obtained without IV contrast. Automated exposure control was utilized for the study. A dose lowering technique was utilized adhering to the principles of ALARA. FINDINGS: No acute intracranial hemorrhage, midline shift or mass effect is present. The ventricular system is unremarkable. The basal cisterns are patent. No extra-axial collections are present. There are no findings to suggest acute dural sinus thrombosis or acute territorial infarct. The appearance of the brain is unchanged. Multiple sites of venous gas are noted. IMPRESSION: 1. No acute intracranial findings. 2. Multifocal venous gas, likely related to IV insertion. ACT 112: Negative or not required by law. Electronically signed by: Joshua Piña M.D. 08/02/2023 2:35 PM Thoracic Spine MRI 08/02/23 19:19 CR Exam(s): MRI T SPINE W/WO Contrast IV Amt: 8cc gadavist EXAM: MR Thoracic Spine Without and With Intravenous Contrast CLINICAL HISTORY: Reason for exam: epidural abscess rule out, low back pain x 1 month. leg weakness. history of sciatica. TECHNIQUE: Magnetic resonance images of the thoracic spine without and with intravenous contrast in multiple planes. Technical issues resulting in moderate signal dropout particularly in the lower thoracic spine. CONTRAST: Patient received 8cc gadavist of IV contrast COMPARISON: CT abdomen pelvis 08/02/23 FINDINGS: Vertebrae: Stable, moderate, biconcave compression fracture of T12, minimal retropulsion superior endplate. Mild edema suggest that this is acute or subacute, and subacute fractures can be associated with avascular necrosis. There is significant technical artifact limiting evaluation. Mild heterogeneous marrow signal, specifically at T2 left pedicle, there is an enhancing mass that is concerning for bony metastatic disease. More subtle lesions are seen T8, T9 and T10 without corresponding CT abnormality that could reflect an atypical hemangioma, though metastatic disease difficult to entirely exclude. No discitis or osteomyelitis. Discs/spinal canal/neural foramina: Moderate, central T7-8 disc protrusion, without spinal stenosis. No other focal disc disease or spinal stenosis. Spinal cord: Grossly normal signal. No abnormal enhancement. Soft tissues: Bilateral pleural effusions and ascites, stable. No definite epidural abscess or abnormal enhancement. IMPRESSION: 1. Moderate biconcave compression T12 with edema, may reflect an acute or subacute fracture that may be associated with avascular necrosis, correlate clinically. 2. Possible bony metastatic disease, most notably left T2 pedicle. Correlate clinically, and if necessary with nuclear medicine bone scan imaging or PET CT as clinically indicated. 3. Moderate central disc protrusion T7-8. 4. No discitis, osteomyelitis, epidural abscess, spinal stenosis, abnormal cord signal or abnormal enhancement. 5. Significant technical artifact limits detail. Consider follow-up if symptoms persist or progress. Communications: Verify Receipt with Nurse Electronically signed by: Enedina Wallis M.D. 08/03/23 01:58 AM Lumbar Spine MRI 08/02/23 21:01 Exam(s): MRI L SPINE W/WO Contrast IV Amt: 8cc gadavist EXAM: MR Lumbar Spine Without and With Intravenous Contrast CLINICAL HISTORY: Reason for exam: epidural abscess r/o. TECHNIQUE: Magnetic resonance images of the lumbar spine without and with intravenous contrast in multiple planes. Significant limited evaluation due to signal dropout. CONTRAST: Patient received 8cc gadavist of IV contrast COMPARISON: CT abdomen pelvis done earlier the same day. FINDINGS: Vertebrae: Moderate T12 compression deformity, with underlying edema, nonspecific, see separately dictated thoracic spine MRI report. Mild superior endplate edema and deformity of L1, likely acute or subacute fracture. There is no worrisome metastatic disease in the lumbar spine. No discitis or osteomyelitis. Conus: Terminates normally. No abnormal enhancement. Soft tissues: No obvious psoas or epidural abscess. Significant artifact limits evaluation. Ascites and pleural effusions, better seen on CT. DISCS/SPINAL CANAL/NEURAL FORAMINA: L1-L2: Mild degenerative disc disease. Severe facet hypertrophy and borderline central spinal stenosis. L2-L3: Moderate central spinal stenosis due to moderate disc protrusion, disc space narrowing, severe facet hypertrophy. There is moderate to severe bilateral foraminal stenosis. L3-L4: Severe disc space narrowing, large disc herniation, severe facet and ligamentum flavum hypertrophy, results in severe central spinal stenosis and severe bilateral foraminal stenosis. L4-L5: Severe disc space narrowing, with moderate circumferential disc protrusion, with inferior migration on the right, severe facet hypertrophy, and severe right foraminal and right lateral recess stenosis. Moderate central spinal stenosis and left foraminal stenosis. L5-S1: Severe disc space narrowing with moderate slightly rightward disc bulge and osteophyte, and severe bilateral foraminal stenosis. No significant central spinal stenosis, though potential for right S1 impingement syndrome, correlate clinically. IMPRESSION: 1. Moderate compression fracture T12, see separately dictated thoracic spine MRI. 2. Mild superior endplate edema and compression fracture L1, likely acute or subacute. 3. Severe diffuse degenerative disc disease including severe central spinal stenosis L3-4, moderate central spinal stenosis L2-3 at L4-5 and multilevel lateral recess and foraminal stenosis, as detailed above. 4. No discitis, osteomyelitis, or epidural abscess, though there is significant technical artifact limiting evaluation. Consider follow-up if symptoms persist. 5. No bony metastatic disease in the lumbar spine. Electronically signed by: Enedina Wallis M.D. 08/03/23 01:59 AM Calcaneus X-Ray 08/03/23 14:19 XR calcaneus LT min 2V CLINICAL HISTORY: poss osteo TECHNIQUE: 2 views of the left calcaneus were obtained. Comparison: None available at the time of this dictation. FINDINGS: No evidence of bony erosion is seen. The alignment is anatomic. The joint spaces are well preserved. No soft tissue abnormality is identified. IMPRESSION: No radiographic evidence of osteomyelitis. If clinical concern remains, MRI is a more sensitive modality. ACT 112: Negative or not required by law. Electronically signed by: Nino Ray M.D. 08/03/2023 3:03 PM Calcaneus X-Ray 08/03/23 14:19 RIGHT CALCANEUS 2 VIEWS CLINICAL HISTORY: Right heel pain. Infection. FINDINGS: AP and lateral views of the right calcaneus are correlated with radiograph of the right foot dated 05/27/2016. The skeletal structures are osteopenic. There is no radiographic evidence of calcaneal fracture. There are large dorsal and plantar heel spurs. No erosive change is seen. An os trigonum is incidentally noted. There is soft tissue edema around the heel with a dorsal wound. No radiodense foreign body is identified. There is atherosclerotic calcification of the regional arteries. IMPRESSION: 1. No acute bony abnormality is identified. 2. Soft tissue edema suggests cellulitis and there is a wound along the posterior aspect of the heel. 3. Large heel spurs. Electronically signed by: Luis Daniel Marques M.D. 08/03/2023 2:56 PM
--- NOTE | 2023-08-04 18:36 | Hospitalist Progress Note ---
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 Additional cultures are pending. Patient with multiple skin bruises of possible portal of entry. Paracentesis has been obtained low cell counts although waiting for cultures Denies cough, abdominal pain, urinary symptoms. CTchest with moderate pulmonary edema no defined infiltrates or commented upon CTA/P is with large volume ascites, patient does not have tenderness/rebound/guarding. Previous history of cholecystectomy -MRI of spine does not suggest epidural abscess but does note L1 compression fracture and L3-4 spinal stenosis -Tickborne illness/infection studies are negative Procalcitonin elevated 1.85, cortisol pending UA with leukocyte Estrace and blood, UCx pending. Infectious disease consultation likely treating for possible staph bacteremia. 08/03 while de-escalate to Ancef. Discontinuing Vanco. Following cultures that are currently obtained Patient remains on blood pressure support with the use of midodrine (2) Cardiac amyloidosis: Plan: Cardiac amyloidosis typically managed at [facility]. Repeat echocardiogram shows EF approximately 40-45%, similar to March heart failure with midrange ejection fraction Dual-chamber pacemaker in place for heart block EKG is ventricular paced rhythm. Troponin is elevated from demand ischemia do not suspect acute coronary syndrome Tafamidis continued Cardiology is consulted. Will follow along (3) Atrial fibrillation, permanent: Plan: History of A-fib/a flutter, history of heart block s/p pacer Anticoagulation continued, Cr improved dose increase to apixaban 5mg bid Metoprolol held for hypotension Paced rhythm on EKG, concern of staph bacteremia with implanted devices (4) Central sleep apnea: Plan: CPAP nightly Plan DVT prophylaxis: Anticoagulated with Eliquis now currently on hold outlook guarded at this time Admission and Anticipated Discharge Date Admission Date: August 02, 2023 Subjective No acute events overnight. No fevers or chills. Remains on phenylephrine gtt. Ortega draining clear yellow urine. Appetite poor. No abdominal pain. Complains of buttocks or gluteal pain. No constipation. Denies shortness of breath. Experiencing some bladder spasms and sacral discomfort. Notable weakness in legs when attempting to stand yesterday. Will require PT OT and concern for needing placement. I discussed the medical history and plan of care with Dr. Russell and dr Delgado this AM. Physical Exam Physical Exam: Patient is awake he is oriented x 3 he is slightly foggy based my recollection of my knowledge of this patient He is without head or neck trauma that I can see Cardiac exam is regular no murmurs or peripheral stigmata of endocarditis Lung exam is without significant air loss no wheezes Abdomen shows likely still retained ascites dull no focal tenderness Extremities are with changes of chronic venous stasis bruising and skin discoloration heel with some skin cracking on the right Results & Data Results & Data Vital Signs (Past 12 Hours) Vital Signs Pulse Resp BP Pulse Ox O2 Del Method O2 Flow Rate 08/04/23 11:15 60 18 99 08/04/23 11:15 109/76 08/04/23 11:00 60 16 96 08/04/23 11:00 90/61 L 08/04/23 10:45 106/69 08/04/23 10:45 60 19 98 08/04/23 10:30 105/68 08/04/23 10:30 61 17 94 08/04/23 10:15 99/67 L 08/04/23 10:15 61 12 97 08/04/23 10:00 60 16 100 08/04/23 10:00 92/59 L 08/04/23 09:45 60 18 99 08/04/23 09:45 86/53 L 08/04/23 09:32 64 19 99 08/04/23 09:32 110/55 L 08/04/23 09:30 69 19 100 08/04/23 09:15 112/73 08/04/23 09:15 62 16 97 08/04/23 09:00 84/61 L 08/04/23 09:00 60 16 90 08/04/23 08:45 60 16 100 08/04/23 08:45 118/77 08/04/23 08:30 60 19 99 08/04/23 08:30 117/69 08/04/23 08:15 122/83 08/04/23 08:15 61 14 100 08/04/23 08:00 60 17 100 08/04/23 08:00 119/77 08/04/23 07:55 Nasal Cannula 2 08/04/23 07:45 63 16 99 08/04/23 07:45 114/75 08/04/23 07:30 60 14 99 08/04/23 07:30 112/77 08/04/23 07:15 60 16 98 08/04/23 07:15 108/70 08/04/23 07:01 60 14 100 08/04/23 07:00 60 17 100 PG Care Time/CCT Total # of Minutes Spent Total Time Spent with Patient: Total time spent is greater than 50% in coordination of care (as documented) at patient's floor/unit and/or counseling patient: Coding Level of Care Code 41448 SUB INP/OBS CARE 2/35MIN Diagnoses Shock R57.9 Cardiac amyloidosis E85.4; I43 Atrial fibrillation, permanent I48.21 Central sleep apnea G47.31
--- NOTE | 2023-08-04 19:04 | XRay Report ---
XR chest 1V portable CLINICAL HISTORY: picc placement/ left pacemaker COMPARISON STUDY: Chest radiograph and chest CT August 02, 2023. FINDINGS: The tip of the right PICC projects over the proximal right atrium. There are trace bilatera l pleural effusions. There is no pneumothorax. Left subclavian pacer remains in place. Moderate cardi omegaly is again noted. Left basilar opacity has increased. Interstitial thickening has developed. IMPRESSION: 1. Tip of right PICC projects over the proximal right atrium. 2. Cardiomegaly. Mild pulmonary edema with trace bilateral pleural effusions. 3. Increase in left basilar opacity. This likely reflects atelectasis when correlating with prior [address] CT. ACT 112: Negative or not required by law. Electronically signed by: Joshua Piña M.D. 08/04/2023 7:02 PM
--- NOTE | 2023-08-04 19:54 | XRay Report ---
XR chest 1V portable CLINICAL HISTORY: PICC placement COMPARISON STUDY: Chest radiograph performed earlier today. FINDINGS: The tip of the right PICC projects over the cavoatrial junction. Left subclavian Infuse-a-P ort is in place. Cardiomegaly is again noted. Left basilar opacity has increased have increased. Ther e are small bilateral pleural effusions. There is no pneumothorax. Interstitial thickening is present . IMPRESSION: 1. Tip of right PICC projects over the cavoatrial junction. 2. Increase in left basilar opacity which could reflect atelectasis or pneumonia. 2. Cardiomegaly with mild interstitial pulmonary edema and small bilateral pleural effusions. ACT 112: Negative or not required by law. Electronically signed by: Joshua Piña M.D. 08/04/2023 7:53 PM
[2023-08-04] MEDS: PHENYLEPHRINE HCL 100 MG in SODIUM CHLORIDE 0.9% 240 ML IV SCH (21:20)
[2023-08-05 04:54] LABS: Basophils # (auto) 0.04 K/uL (0.00-0.20); Basophils % (auto) 0.3 %; Eosinophils # (auto) 0.11 K/uL (0.00-0.50); Eosinophils % (auto) 0.9 %; Hematocrit (blood only) 30.7 % (42.0-52.0); Hemoglobin 10.3 g/dl (14.0-18.0); Immature Granulocytes # (auto) 0.07 K/uL (0.01-0.20); Immature Granulocytes % (auto) 0.6 %; Lymphocytes # (auto) 0.74 K/uL (1.20-3.40); Lymphocytes % (auto) 6.3 %; Mean Corpuscular Hgb Conc 33.6 g/dL (32.0-36.0); Mean Corpuscular Volume 101.3 fL (80.0-100.0); Mean Platelet Volume 9.5 fL (9.4-12.4); Monocytes # (auto) 0.66 K/uL (0.11-0.59); Monocytes % (auto) 5.6 %; Neutrophils # (auto) 10.16 K/uL (1.40-6.50); Neutrophils % (auto) 86.3 %; Platelet Count 257 K/uL (130-400); RDW Coefficient of Variation 15.3 % (11.5-14.5); RDW Standard Deviation 56.1 fL (36.4-46.3); Red Blood Count 3.03 M/uL (4.70-6.10); White Blood Count 11.78 K/ul (4.8-10.8)
[2023-08-05 05:16] LABS: Albumin Globulin Ratio 0.9 (0.9-2); BUN Creatinine Ratio 41.7 (10-20); Bilirubin,Total 1.1 mg/dl (0.2-1.0); Calcium 8.5 mg/dl (8.6-10.3); Creatinine Clr Calc Pharmacy 69.4 ml/min; Est GFR (African American) 86.2 ml/min; Est GFR (Non-African American) 74.4 ml/min; Globulin 3.2 gm/dl (2.5-4.0); Magnesium 1.8 mg/dl (1.7-2.4); Phosphorus 2.6 mg/dl (2.5-4.9); Potassium 4.4 mmol/L (3.5-5.1); Total Protein 6.2 gm/dl (6.0-8.3)
[2023-08-05] MEDS: MAGNESIUM SULFATE / D5W 1 GM/100 ML BAG IV SCH (07:42)
--- NOTE | 2023-08-05 08:04 | Hospitalist Progress Note ---
Date of Service August 05, 2023 Assessment & Plan (1) Shock: Plan: Suspected septic shock secondary to MSSA bacteremia source skin, in the context of amyloid cardiomyopathy 1 of 4 blood cultures are positive on the initial set gram-positive cocci. Paracentesis / ascitic culture negative to date Patient with multiple skin bruises of possible portal of entry. CTchest with moderate pulmonary edema no defined infiltrates or commented upon CTA/P is with large volume ascites, Previous history of cholecystectomy -MRI of spine does not suggest epidural abscess but does note L1 compression fracture and L3-4 spinal stenosis -Tickborne illness/infection studies are negative Infectious disease consultation treating for staph bacteremia. MSSA confirmed de-escalate to Ancef 08/04/23 PICC placed as subsequent cx negative Patient remains on blood pressure support phenylephrine and additional po midodrine (2) Cardiac amyloidosis: Plan: Cardiac amyloidosis typically managed at [facility]. Repeat echocardiogram shows EF approximately 40-45%, similar to March heart failure with midrange ejection fraction Dual-chamber pacemaker in place for heart block EKG is ventricular paced rhythm. Troponin is elevated from demand ischemia do not suspect acute coronary syndrome Tafamidis continued Cardiology is consulted. cxr of 08/03 continues with pulmonary edema. ckd 3 blood pressure limits diuresis (3) Atrial fibrillation, permanent: Plan: History of A-fib/a flutter, history of heart block s/p pacer Anticoagulation continued, Cr improved dose increase to apixaban 5mg bid Metoprolol held for hypotension Paced rhythm on EKG, concern of staph bacteremia with implanted devices (4) Central sleep apnea: Plan: CPAP nightly Plan DVT prophylaxis: Anticoagulated with Eliquis now currently on hold PT/OT with concerns for going home Admission and Anticipated Discharge Date Admission Date: August 02, 2023 Subjective The patient reports he is feeling better. His bladder spasms have subsided. He is tolerating somewhat of a diet. continues with buttock/sacral pain, does have some skin breakdown reducing phenylephrine, able to use a dose of lasix 08/05/23, need physical exertion encouraged to get out of bed Physical Exam Physical Exam: Patient is awake he is oriented x 3 he is more clear of mentation Cardiac exam is regular no murmurs or peripheral stigmata of endocarditis Abdomen dull no focal tenderness Extremities are with changes of chronic venous stasis bruising and skin discoloration, 1+ edema heel with some skin cracking on the right Results & Data Results & Data Vital Signs (Past 12 Hours) Vital Signs Temp Pulse Resp BP Pulse Ox O2 Del Method 08/05/23 05:30 109/68 08/05/23 05:30 60 17 100 Room Air 08/05/23 05:00 60 18 91 08/05/23 05:00 96/65 L 08/05/23 04:30 60 15 98 Room Air 08/05/23 04:30 110/70 08/05/23 04:00 60 15 97 08/05/23 04:00 109/68 08/05/23 03:30 111/70 08/05/23 03:30 67 16 98 08/05/23 03:00 62 15 97 Room Air 08/05/23 03:00 111/68 08/05/23 03:00 98.6 F 08/05/23 02:30 60 15 97 08/05/23 02:30 109/74 08/05/23 02:00 60 17 92 08/05/23 01:30 100/68 08/05/23 01:30 63 16 96 08/05/23 01:00 83/53 L 08/05/23 01:00 61 18 94 08/05/23 00:30 88 19 95 08/05/23 00:30 98/73 L 08/05/23 00:00 102/67 08/05/23 00:00 60 17 97 08/05/23 00:00 62 08/04/23 23:30 60 4 L 96 08/04/23 23:30 108/73 08/04/23 23:00 114/70 Room Air 08/04/23 23:00 64 17 99 08/04/23 23:00 98.4 F 08/04/23 22:30 74 17 95 08/04/23 22:30 103/77 08/04/23 22:00 60 16 96 08/04/23 22:00 93/61 L 08/04/23 21:30 63 16 99 08/04/23 21:30 109/71 08/04/23 21:00 60 15 97 08/04/23 21:00 106/68 08/04/23 20:30 60 18 96 08/04/23 20:30 104/66 08/04/23 20:15 Room Air 08/04/23 20:00 60 20 77 L 08/04/23 20:00 89/60 L Laboratory Results review cbc review chemistry PG Care Time/CCT Total # of Minutes Spent Total Time Spent with Patient: Total time spent is greater than 50% in coordination of care (as documented) at patient's floor/unit and/or counseling patient: Coding Level of Care Code 16930 SUB INP/OBS CARE 3/50MIN Diagnoses Shock R57.9 Cardiac amyloidosis E85.4; I43 Atrial fibrillation, permanent I48.21 Central sleep apnea G47.31
[2023-08-05] MEDS: FUROSEMIDE 40 MG/4 ML VIAL IV SCH (09:18)
--- NOTE | 2023-08-05 09:43 | Critical Care Progress Note ---
Date of Service August 05, 2023 Assessment & Plan (1) Septic shock: (2) Fluid overload: (3) Ascites: (4) Staphylococcus aureus bacteremia with sepsis: (5) Compression fracture of body of thoracic vertebra: (6) FILI (acute kidney injury): (7) Cardiomyopathy: (8) Atrial fibrillation, permanent: Plan Impression: 78-year-old male with history of cardiac amyloid/restrictive cardiomyopathy, atrial fibrillation, admitted with persistent back pain, leukocytosis, hypotension and concern for potential infection. He remains pressor dependent. Blood cultures are growing gram-positive cocci which appears to be methicillin sensitive Staph aureus. Portals appear to be skin breakdown 24-hour events: Tristen-Synephrine still present but decreasing in dose. PICC line was placed yesterday. Bladder spasms effectively treated with antispasmodic. Surveillance cultures no growth to date Recommendations: 1. Neurologic: Encephalopathy, appears resolved. Likely metabolic in etiology. Will continue to follow. Ammonia level was normal. [employer] imaging unremarkable. No indication for additional intervention or imaging currently. Will get PT OT involved and get the patient out of bed to chair and see how he does 2. Cardiovascular: History of cardiac amyloid. EF reduced but stable to prior echocardiograms. Lactate is normal which is reassuring however he remains hypotensive. Ultimately the patient needs diuretic so we will add back Lasix 40 mg IV daily in the hopes that his pressure can tolerate it. Continue efforts to wean Tristen-Synephrine to off and continue midodrine. Given his low albumin state, will provide 50 g of 25% albumin to see how he responds. 3. Pulmonary: No current issues. History of sleep disordered breathing. He was ineffectively treated with CPAP and BiPAP in the past and is not currently compliant with therapy. May need supplemental oxygen at night. 4. ID: Methicillin sensitive bacteremia. Surveillance cultures were negative. No evidence of osteo-. He does have an indwelling pacemaker. PICC line placed. Currently on Ancef. Anticipate will need 6 weeks of antibiotics. White blood cell count continues to improve 5. Renal: Appreciate nephrology consultation. BUN and creatinine continue to improve. Hyperkalemia improving. Calcium will be replaced 6. GI: Ascites is -serum ascites albumin gradient of only 0.4 show ascites does not appear consistent with portal hypertension. Cytology pending. Differential showed 17% neutrophils, 13% lymphocytes and 70% mesothelial cells with a total cell count of only 78. No evidence of SBP. Unclear if abdominal amyloid could potentially cause this pattern. No specific therapy would be entertained other than diuretics. 7. Endocrine: No cortisol was normal. Glycemic control per protocol. 8. Heme-onc: Leukocytosis, improving. He does have mild anemia which is worse compared to his baseline. No evidence of active ongoing bleeding. No indication for transfusion currently. Unclear significance of the MRI finding. Outpatient bone scan/PET scan may be appropriate 9. Musculoskeletal: Acute/subacute compression fractures as well as severe stenosis. Pain control not an issue. Disposition: Keep the patient in the ICU as long as he is requiring vasopressor agents. When he is off pressors, can likely transfer to the floor and critical care services will sign off Admission and Anticipated Discharge Date Admission Date: August 02, 2023 Subjective Patient seen and examined. EMR reviewed. Discussed with critical care ISAEL overnight. The patient reports he is feeling better. His bladder spasms have subsided. He is tolerating somewhat of a diet. He is not particularly happy with his nutritional choices currently. He denies any chest pain or palpitations. No nausea or vomiting or diarrhea. He is not having significant back pain but is complaining of some lower sacral pain likely due to skin excoriations Review of Systems Review of Systems: All systems reviewed & are unremarkable except as noted in Subjective Physical Exam Constitutional: WD/WN, vitals as above + thin Neck: trachea midline, no thyromegaly Respiratory: normal respiratory effort, lungs clear to auscultation Cardiovascular: Rate/Rhythm: regular rate Heart Sounds: normal S1, normal S2 and + murmur Extremities: + edema Gastrointestinal (Abdomen): Inspection/Auscultation: + abdomen distended and + abdominal edema Percussion/Palpation: + ascites Musculoskeletal: Extremities: extremities normal to inspection Lymphatic: no cervical lymphadenopathy Results & Data Results & Data Vital Signs (Past 12 Hours) Vital Signs Temp Pulse Resp BP Pulse Ox O2 Del Method 08/05/23 08:37 36.6 C 08/05/23 08:01 85/47 L 08/05/23 08:01 61 20 95 08/05/23 08:00 61 20 96 08/05/23 08:00 86 08/05/23 07:31 90 23 84 L 08/05/23 07:31 116/67 08/05/23 07:30 66 21 94 08/05/23 07:00 62 17 94 08/05/23 06:30 105/69 08/05/23 06:30 60 16 98 08/05/23 06:00 93/66 L 08/05/23 06:00 60 16 87 L 08/05/23 05:30 109/68 08/05/23 05:30 60 17 100 Room Air 08/05/23 05:00 60 18 91 08/05/23 05:00 96/65 L 08/05/23 04:30 60 15 98 Room Air 08/05/23 04:30 110/70 08/05/23 04:00 60 15 97 08/05/23 04:00 109/68 08/05/23 03:30 111/70 08/05/23 03:30 67 16 98 08/05/23 03:00 62 15 97 Room Air 08/05/23 03:00 111/68 08/05/23 03:00 37.0 C 08/05/23 02:30 60 15 97 08/05/23 02:30 109/74 08/05/23 02:00 60 17 92 08/05/23 01:30 100/68 08/05/23 01:30 63 16 96 08/05/23 01:00 83/53 L 08/05/23 01:00 61 18 94 08/05/23 00:30 88 19 95 08/05/23 00:30 98/73 L 08/05/23 00:00 102/67 08/05/23 00:00 60 17 97 08/05/23 00:00 62 08/04/23 23:30 60 4 L 96 08/04/23 23:30 108/73 08/04/23 23:00 114/70 Room Air 08/04/23 23:00 64 17 99 08/04/23 23:00 36.9 C 08/04/23 22:30 74 17 95 08/04/23 22:30 103/77 08/04/23 22:00 60 16 96 08/04/23 22:00 93/61 L Critical Care Results & Data Vital Signs (Past 12 Hours) Vital Signs Temp Pulse Resp BP Pulse Ox O2 Del Method 08/05/23 08:37 36.6 C 08/05/23 08:01 85/47 L 08/05/23 08:01 61 20 95 05/11/24 08:00 61 20 96 08/05/23 08:00 86 08/05/23 07:31 90 23 84 L 08/05/23 07:31 116/67 08/05/23 07:30 66 21 94 08/05/23 07:00 62 17 94 08/05/23 06:30 105/69 08/05/23 06:30 60 16 98 08/05/23 06:00 93/66 L 08/05/23 06:00 60 16 87 L 08/05/23 05:30 109/68 08/05/23 05:30 60 17 100 Room Air 08/05/23 05:00 60 18 91 08/05/23 05:00 96/65 L 08/05/23 04:30 60 15 98 Room Air 08/05/23 04:30 110/70 08/05/23 04:00 60 15 97 08/05/23 04:00 109/68 08/05/23 03:30 111/70 08/05/23 03:30 67 16 98 08/05/23 03:00 62 15 97 Room Air 08/05/23 03:00 111/68 08/05/23 03:00 37.0 C 08/05/23 02:30 60 15 97 08/05/23 02:30 109/74 08/05/23 02:00 60 17 92 08/05/23 01:30 100/68 08/05/23 01:30 63 16 96 08/05/23 01:00 83/53 L 08/05/23 01:00 61 18 94 08/05/23 00:30 88 19 95 08/05/23 00:30 98/73 L 08/05/23 00:00 102/67 08/05/23 00:00 60 17 97 08/05/23 00:00 62 08/04/23 23:30 60 4 L 96 08/04/23 23:30 108/73 08/04/23 23:00 114/70 Room Air 08/04/23 23:00 64 17 99 08/04/23 23:00 36.9 C 08/04/23 22:30 74 17 95 08/04/23 22:30 103/77 08/04/23 22:00 60 16 96 08/04/23 22:00 93/61 L Lab & Micro Results (Past 24 Hours) RBC 3.03 M/uL (4.70-6.10) L 08/05/23 WBC 11.78 K/ul (4.8-10.8) H 08/05/23 Hgb 10.3 g/dl (14.0-18.0) L 08/05/23 Hct 30.7 % (42.0-52.0) L 08/05/23 MCV 101.3 fL (80.0-100.0) H 08/05/23 MCH 34.0 pg (25.0-34.0) 08/05/23 MCHC 33.6 g/dL (32.0-36.0) 08/05/23 RDW Standard Deviation 56.1 fL (36.4-46.3) H 08/05/23 RDW Coefficient of Variation 15.3 % (11.5-14.5) H 08/05/23 Plt Count 257 K/uL (130-400) 08/05/23 MPV 9.5 fL (9.4-12.4) 08/05/23 Neutrophils (%) (Auto) 86.3 % 08/05/23 Lymphocytes (%) (Auto) 6.3 % 08/05/23 Monocytes # (Auto) 0.66 K/uL (0.11-0.59) H 08/05/23 Eosinophils # (Auto) 0.11 K/uL (0.00-0.50) 08/05/23 Immature Granulocyte % (Auto) 0.6 % 08/05/23 Neutrophils # (Auto) 10.16 K/uL (1.40-6.50) H 08/05/23 Lymphocytes # (Auto) 0.74 K/uL (1.20-3.40) L 08/05/23 Monocytes # (Auto) 0.66 K/uL (0.11-0.59) H 08/05/23 Eosinophils # (Auto) 0.11 K/uL (0.00-0.50) 08/05/23 Basophils # (Auto) 0.04 K/uL (0.00-0.20) 08/05/23 Immature Granulocyte # (Auto) 0.07 K/uL (0.01-0.20) 4 Na 136 mmol/L (136-145) 08/05/23 K 4.4 mmol/L (3.5-5.1) 08/05/23 Cl 112 mmol/L (98-107) H 08/05/23 CO2 17 mmol/L (21-32) L 08/05/23 Anion Gap 7 (3-11) 08/05/23 BUN 40 mg/dl (6-23) H 08/05/23 Creatinine 0.96 mg/dl (0.6-1.4) 08/05/23 Estimated GFR ( Amer) 86.2 ml/min 08/05/23 Estimated GFR (Non-Af Amer) 74.4 ml/min 08/05/23 BUN/Creatinine Ratio 41.7 (10-20) H 08/05/23 Glu 106 mg/dl (70-99(Fasting)) H 08/05/23 Ca 8.5 mg/dl (8.6-10.3) L 08/05/23 Phosphorus Level 2.6 mg/dl (2.5-4.9) 08/05/23 Total Bilirubin 1.1 mg/dl (0.2-1.0) H 08/05/23 AST 22 U/L (13-39) 08/05/23 ALT 14 U/L (7-52) 08/05/23 Alkaline Phosphatase 159 U/L (34-104) H 08/05/23 TP 6.2 gm/dl (6.0-8.3) 08/05/23 Albumin 3.0 gm/dl (3.4-5.0) L 08/05/23 Globulin 3.2 gm/dl (2.5-4.0) 08/05/23 Albumin/Globulin Ratio 0.9 (0.9-2) 08/05/23 Mg 1.8 mg/dl (1.7-2.4) 08/05/23 04:22 Calcium Level 8.5 mg/dl (8.6-10.3) L 08/05/23 04:22 Microbiology 08/03/23 09:29 Urine Culture - Final Urine,Clean Catch No growth - less than 1,000 colonies/mL. 08/03/23 Unknown Gram Stain - Final Peritoneal Fluid Aerobic and Anaerobic Culture - Preliminary No growth to date. 08/02/23 16:09 Aerobic Blood Culture - Preliminary Blood No growth in Aerobic bottle after 48 hours. Anaerobic Blood Culture - Preliminary Staphylococcus aureus 08/02/23 16:06 Aerobic Blood Culture - Preliminary Blood No growth in Aerobic bottle after 48 hours. Anaerobic Blood Culture - Final 08/03/23 10:02 Aerobic Blood Culture - Preliminary Blood No growth in Aerobic bottle after 24 hours. Anaerobic Blood Culture - Preliminary No growth in Anaerobic bottle after 24 hours. 08/03/23 09:56 Aerobic Blood Culture - Preliminary Blood No growth in Aerobic bottle after 24 hours. Anaerobic Blood Culture - Preliminary No growth in Anaerobic bottle after 24 hours. Diagnostic Findings (Past 24 Hours) Chest X-Ray 08/04/23 18:17 XR chest 1V portable CLINICAL HISTORY: picc placement/ left pacemaker COMPARISON STUDY: Chest radiograph and chest CT August 02, 2023. FINDINGS: The tip of the right PICC projects over the proximal right atrium. There are trace bilateral pleural effusions. There is no pneumothorax. Left subclavian pacer remains in place. Moderate cardiomegaly is again noted. Left basilar opacity has increased. Interstitial thickening has developed. IMPRESSION: 1. Tip of right PICC projects over the proximal right atrium. 2. Cardiomegaly. Mild pulmonary edema with trace bilateral pleural effusions. 3. Increase in left basilar opacity. This likely reflects atelectasis when correlating with prior chest CT. ACT 112: Negative or not required by law. Electronically signed by: Joshua Piña M.D. 08/04/2023 7:02 PM Chest X-Ray 08/04/23 19:29 XR chest 1V portable CLINICAL HISTORY: PICC placement COMPARISON STUDY: Chest radiograph performed earlier today. FINDINGS: The tip of the right PICC projects over the cavoatrial junction. Left subclavian Jaohwn-u-Vric is in place. Cardiomegaly is again noted. Left basilar opacity has increased have increased. There are small bilateral pleural effusions. There is no pneumothorax. Interstitial thickening is present. IMPRESSION: 1. Tip of right PICC projects over the cavoatrial junction. 2. Increase in left basilar opacity which could reflect atelectasis or pneumonia. 2. Cardiomegaly with mild interstitial pulmonary edema and small bilateral pleural effusions. ACT 112: Negative or not required by law. Electronically signed by: Joshua Piña M.D. 08/04/2023 7:53 PM I & O Totals 24 Hours 08/04/23 08/05/23 08/06/23 06:59 06:59 06:59 Intake Total 3892.08 / 3892.08 3385.840 / 3385.840 165.048 / 165.048 Output Total 3176 / 3176 1531 / 1531 Balance 716.08 / 716.08 1854.840 / 1854.840 165.048 / 165.048 Cumulative 08/02/23 11:08 thru 08/05/23 09:10 Intake Total 47838.608 Output Total 7607 Balance 3922.608 RT Ventilator Mngmt (Last Documented) Ventilator Ordered Settings Respiratory Rate 20 08/05/23 08:01 Ventilator - PT Measurements Respiratory Rate 20 Coding Level of Care Code 34094 SUB INP/OBS CARE 3/50MIN Diagnoses Septic shock A41.9; R65.21 Fluid overload E87.70 Hypervolemia type: unspecified Ascites R18.8 Staphylococcus aureus bacteremia with sepsis A41.01 Compression fracture of body of thoracic vertebra S22.000A FILI (acute kidney injury) N17.9 Cardiomyopathy I42.9 Cardiomyopathy type: unspecified Atrial fibrillation, permanent I48.21 (2) Fluid overload Hypervolemia type: unspecified Qualified Code(s): E87.70 - Fluid overload, unspecified (7) Cardiomyopathy Cardiomyopathy type: unspecified Qualified Code(s): I42.9 - Cardiomyopathy, unspecified
[2023-08-05] MEDS: CALCIUM CHLORIDE 10% 1,000 MG in DEXTROSE 5% 50 ML IV STA (10:20)
[2023-08-05] MEDS: ALBUMIN 25% 25 GM/100 ML VIAL IV SCH (10:46)
[2023-08-05 13:32] LABS: Babesia microti DNA Not Detected (Not Detected)
--- NOTE | 2023-08-05 16:39 | Hospitalist Progress Note ---
Date of Service August 05, 2023 Assessment & Plan (1) Shock: Plan: Suspected septic shock secondary to MSSA bacteremia source skin, in the context of amyloid cardiomyopathy 1 of 4 blood cultures are positive on the initial set gram-positive cocci. Paracentesis / ascitic culture negative to date Patient with multiple skin bruises of possible portal of entry. CTchest with moderate pulmonary edema no defined infiltrates or commented upon CTA/P is with large volume ascites, Previous history of cholecystectomy -MRI of spine does not suggest epidural abscess but does note L1 compression fracture and L3-4 spinal stenosis -Tickborne illness/infection studies are negative Infectious disease consultation treating for staph bacteremia. MSSA confirmed de-escalate to Ancef 08/04/23 PICC placed as subsequent cx negative Patient remains on blood pressure support phenylephrine and additional po midodrine (2) Cardiac amyloidosis: Plan: Cardiac amyloidosis typically managed at [facility]. Repeat echocardiogram shows EF approximately 40-45%, similar to March heart failure with midrange ejection fraction Acute on chronic mid range CHF Dual-chamber pacemaker in place for heart block EKG is ventricular paced rhythm. Troponin is elevated from demand ischemia do not suspect acute coronary syndrome Tafamidis continued Cardiology is consulted. cxr of 08/03 continues with pulmonary edema. ckd 3 blood pressure limits diuresis (3) Atrial fibrillation, permanent: Plan: History of A-fib/a flutter, history of heart block s/p pacer Anticoagulation continued, Cr improved dose increase to apixaban 5mg bid Metoprolol held for hypotension Paced rhythm on EKG, concern of staph bacteremia with implanted devices (4) Central sleep apnea: Plan: CPAP nightly Plan DVT prophylaxis: Anticoagulated with Eliquis now currently on hold PT/OT with concerns for going home Admission and Anticipated Discharge Date Admission Date: August 02, 2023 Results & Data Results & Data Vital Signs (Past 12 Hours) Vital Signs Temp Pulse Resp BP Pulse Ox O2 Del Method 08/05/23 15:06 60 08/05/23 13:29 97.9 F 08/05/23 11:45 108/72 08/05/23 11:45 60 17 99 08/05/23 11:30 94/64 L 08/05/23 11:30 66 16 96 08/05/23 11:15 60 16 100 08/05/23 11:15 99/66 L 08/05/23 11:00 101/64 08/05/23 11:00 62 17 98 08/05/23 10:45 60 17 96 08/05/23 10:30 64 22 97/61 L 92 08/05/23 10:15 108/71 08/05/23 10:15 60 13 99 08/05/23 10:05 62 18 107/73 97 08/05/23 09:45 61 17 105/67 99 08/05/23 09:30 65 18 101/71 96 08/05/23 09:15 65 15 101/67 95 08/05/23 09:00 61 15 87/61 L 98 08/05/23 08:45 60 15 90/56 L 97 08/05/23 08:37 97.9 F 08/05/23 08:30 60 19 91/59 L 98 08/05/23 08:16 62 20 101/63 100 08/05/23 08:01 85/47 L 08/05/23 08:01 61 20 95 08/05/23 08:00 61 20 96 08/05/23 08:00 86 08/05/23 07:31 90 23 94 Room Air 08/05/23 07:31 116/67 08/05/23 07:30 66 21 94 08/05/23 07:00 62 17 94 08/05/23 06:30 105/69 08/05/23 06:30 60 16 98 08/05/23 06:00 93/66 L 08/05/23 06:00 60 16 87 L 08/05/23 05:30 109/68 08/05/23 05:30 60 17 100 Room Air 08/05/23 05:00 60 18 91 08/05/23 05:00 96/65 L PG Care Time/CCT Total # of Minutes Spent Total Time Spent with Patient: Total time spent is greater than 50% in coordination of care (as documented) at patient's floor/unit and/or counseling patient: Coding Level of Care Code None Diagnoses Shock R57.9 Cardiac amyloidosis E85.4; I43 Atrial fibrillation, permanent I48.21 Central sleep apnea G47.31
--- NOTE | 2023-08-05 17:59 | Cardiology Progress Note ---
Date of Service August 05, 2023 Assessment & Plan (1) Septic shock: (2) Cardiac amyloidosis: (3) Cardiomyopathy: (4) Atrial fibrillation, permanent: (5) Heart failure with mid-range ejection fraction: (6) Heart block: (7) S/P placement of cardiac pacemaker: Plan ASSESSMENT/PLAN: 1. Septic shock: Still on phenylephrine as per critical care team. 1 of 2 blood cultures have resulted in positive for gram-positive cocci. Possible skin source. Following recommendations from the ID service. 2. Heart failure with midrange EF: He has an element of edema, but may have an element of intravascular depletion as well. Lasix was administered today and will need to monitor the hemodynamic effects. Lung examination is relatively benign. Not hypoxic. No dyspnea. 3. 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 Poor prognosis. 4. Cardiomyopathy: Plan as above. Biventricular systolic dysfunction on echo. No options for more aggressive treatment other than diuresis given his relative hypotension. 5. Permanent atrial fibrillation/flutter: On anticoagulation for stroke risk reduction. Overall rate control well controlled with 100% pacing. We may increase the pacing rate to see if that is beneficial. 6. Complete heart block s/p pacemaker: Ventricular pacing. 7. Bacteremia: Only 1 positive culture. No persistent bacteremia. He does not appear to have an indication at this time for a CORONA. Staph aureus does have a propensity for infecting implanted devices. However, I think given his clinical situation there is no reason to consider device removal. Admission and Anticipated Discharge Date Admission Date: August 02, 2023 Subjective This afternoon the patient claimed he feeling well. He did not report significant breathing difficulty. No chest pain. According to nursing staff he was weak and had some difficulty ambulating. Physical Exam Physical Exam: Gen.: No acute distress. Alert and oriented. HEENT: Anicteric sclera. Temporal wasting noted Cardiac: Regular. Normal S1-S2. Pulmonary: Clear to auscultation bilaterally without wheezes, rales, or rhonchi. Results & Data Vital Signs (Past 12 Hours) Vital Signs Temp Pulse Resp BP Pulse Ox O2 Del Method 08/05/23 16:00 60 19 99/65 L 99 08/05/23 15:50 60 15 103/64 99 08/05/23 15:15 60 25 H 101/65 98 08/05/23 15:06 60 08/05/23 15:00 97/64 L 08/05/23 15:00 60 20 98 08/05/23 14:45 60 22 107/66 100 08/05/23 14:30 60 19 95/54 L 71 L 08/05/23 14:00 60 16 95/61 L 100 08/05/23 13:30 60 16 88/57 L 96 08/05/23 13:29 36.6 C 08/05/23 13:15 63 12 97/64 L 08/05/23 13:00 62 16 98/66 L 97 08/05/23 12:15 61 15 98/65 L 98 08/05/23 12:00 60 20 104/66 100 08/05/23 11:45 108/72 08/05/23 11:45 60 17 99 08/05/23 11:30 94/64 L 08/05/23 11:30 66 16 96 08/05/23 11:15 60 16 100 08/05/23 11:15 99/66 L 08/05/23 11:00 101/64 08/05/23 11:00 62 17 98 08/05/23 10:45 60 17 96 08/05/23 10:30 64 22 97/61 L 92 08/05/23 10:15 108/71 08/05/23 10:15 60 13 99 08/05/23 10:05 62 18 107/73 97 08/05/23 09:45 61 17 105/67 99 08/05/23 09:30 65 18 101/71 96 08/05/23 09:15 65 15 101/67 95 08/05/23 09:00 61 15 87/61 L 98 08/05/23 08:45 60 15 90/56 L 97 08/05/23 08:37 36.6 C 08/05/23 08:30 60 19 91/59 L 98 08/05/23 08:16 62 20 101/63 100 08/05/23 08:01 85/47 L 08/05/23 08:01 61 20 95 08/05/23 08:00 61 20 96 08/05/23 08:00 86 08/05/23 07:31 90 23 94 Room Air 08/05/23 07:31 116/67 08/05/23 07:30 66 21 94 05/11/24 07:00 62 17 94 08/05/23 06:30 105/69 08/05/23 06:30 60 16 98 08/05/23 06:00 93/66 L 08/05/23 06:00 60 16 87 L Laboratory Results Abnormal Lab Results 08/02/23 08/05/23 08/05/23 11:30 04:22 07:28 WBC 11.78 H RBC 3.03 L Hgb 10.3 L Hct 30.7 L MCV 101.3 H MCH 34.0 MCHC 33.6 RDW Std Deviation 56.1 H RDW Coeff of Mariel 15.3 H Plt Count 257 MPV 9.5 Immature Gran % (Auto) 0.6 Neut % (Auto) 86.3 Lymph % (Auto) 6.3 [place] % (Auto) 5.6 Eos % (Auto) 0.9 Baso % (Auto) 0.3 Neut # (Auto) 10.16 H Lymph # (Auto) 0.74 L [place] # (Auto) 0.66 H Eos # (Auto) 0.11 Baso # (Auto) 0.04 Immature Gran # (Auto) 0.07 Sodium 136 Potassium 4.4 Chloride 112 H Carbon Dioxide 17 L Anion Gap 7 BUN 40 H Creatinine 0.96 Est Cr Clr Drug Dosing 69.4 Est GFR ( Amer) 86.2 Est GFR (Non-Af Amer) 74.4 BUN/Creatinine Ratio 41.7 H Glucose 106 H POC Glucose 103 H Calcium 8.5 L Phosphorus 2.6 Magnesium 1.8 Total Bilirubin 1.1 H AST 22 ALT 14 Alkaline Phosphatase 159 H Total Protein 6.2 Albumin 3.0 L Globulin 3.2 Albumin/Globulin Ratio 0.9 Babesia microti DNA PCR Not Detected PG Care Time/CCT Total # of Minutes Spent Total Time Spent with Patient: Total time spent is greater than 50% in coordination of care (as documented) at patient's floor/unit and/or counseling patient: Coding Level of Care Code 73274 SUB INP/OBS CARE 2/35MIN Diagnoses Septic shock A41.9; R65.21 Cardiac amyloidosis E85.4; I43 Cardiomyopathy I42.9 Cardiomyopathy type: unspecified Atrial fibrillation, permanent I48.21 Heart failure with mid-range ejection fraction I50.22 Heart block I45.9 S/P placement of cardiac pacemaker Z95.0 (3) Cardiomyopathy Cardiomyopathy type: unspecified Qualified Code(s): I42.9 - Cardiomyopathy, unspecified
[2023-08-06 07:56] LABS: Basophils # (auto) 0.02 K/uL (0.00-0.20); Basophils % (auto) 0.2 %; Eosinophils # (auto) 0.21 K/uL (0.00-0.50); Eosinophils % (auto) 2.4 %; Hematocrit (blood only) 26.7 % (42.0-52.0); Hemoglobin 8.9 g/dl (14.0-18.0); Immature Granulocytes # (auto) 0.05 K/uL (0.01-0.20); Immature Granulocytes % (auto) 0.6 %; Mean Corpuscular Hemoglobin 33.7 pg (25.0-34.0); Mean Corpuscular Hgb Conc 33.3 g/dL (32.0-36.0); Mean Corpuscular Volume 101.1 fL (80.0-100.0); Mean Platelet Volume 9.5 fL (9.4-12.4); Monocytes % (auto) 5.7 %; Neutrophils # (auto) 7.28 K/uL (1.40-6.50); Neutrophils % (auto) 83.1 %; Platelet Count 217 K/uL (130-400); RDW Coefficient of Variation 15.2 % (11.5-14.5); RDW Standard Deviation 56.1 fL (36.4-46.3); Red Blood Count 2.64 M/uL (4.70-6.10); White Blood Count 8.76 K/ul (4.8-10.8)
[2023-08-06 08:15] LABS: Albumin Globulin Ratio 1.1 (0.9-2); Albumin Level 3.3 gm/dl (3.4-5.0); BUN Creatinine Ratio 45.1 (10-20); Bilirubin,Total 1.3 mg/dl (0.2-1.0); Calcium 8.9 mg/dl (8.6-10.3); Creatinine Clr Calc Pharmacy 81.2 ml/min; Est GFR (African American) 96.8 ml/min; Est GFR (Non-African American) 83.5 ml/min; Total Protein 6.3 gm/dl (6.0-8.3)
[2023-08-06 08:51] LABS: Magnesium 1.9 mg/dl (1.7-2.4); Phosphorus 2.5 mg/dl (2.5-4.9)
[2023-08-06] MEDS: MAGNESIUM SULFATE / D5W 1 GM/100 ML BAG IV SCH (09:26)
--- NOTE | 2023-08-06 09:34 | Cardiology Progress Note ---
Date of Service August 06, 2023 Assessment & Plan (1) Septic shock: (2) Cardiac amyloidosis: (3) Cardiomyopathy: (4) Atrial fibrillation, permanent: (5) Heart failure with mid-range ejection fraction: (6) Heart block: (7) S/P placement of cardiac pacemaker: Plan ASSESSMENT/PLAN: 1. Septic shock: Phenylephrine paused. Blood pressure on the lower side, but no symptoms. Hopefully with some time and recall a brace ngo of volume will see some stability. Continue midodrine. 2. Heart failure with midrange EF: He did affect a good diuresis yesterday. Unclear if this could resulted in some lower blood pressures. On examination still clear. He seems opposed to more aggressive diuresis and no additional diuretic will be given today. We may need to except a certain degree of edema. 3. 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 Poor prognosis. 4. Cardiomyopathy: Plan as above. Biventricular systolic dysfunction on echo. No options for more aggressive treatment other than diuresis given his relative hypotension. 5. Permanent atrial fibrillation/flutter: On anticoagulation for stroke risk reduction. Overall rate control well controlled with 100% pacing. He seems to have an adequate rate response with deep inspiration and activity. I did not adjust the device today. 6. Complete heart block s/p pacemaker: Ventricular pacing. Unfortunately, with his degree of LV dysfunction he would benefit from an upgrade of the device to include a coronary sinus lead. However, given his overall tenuous blood pressure and poor prognosis, I am not confident he would have significant benefit or if the procedure could be performed safely. 7. Bacteremia: Only 1 positive culture. No persistent bacteremia. He does not appear to have an indication at this time for a CORONA. Staph aureus does have a propensity for infecting implanted devices. However, I think given his clinical situation there is no reason to consider device removal. Overall he seems to have had some improvement in blood pressure. Scheduled to work with physical therapy today to get a better understanding of whether he can be safely discharged to home at some point. Admission and Anticipated Discharge Date Admission Date: August 02, 2023 Subjective This morning the patient claims to be feeling better. He denies any breathing difficulty. Up in a chair yesterday. Tolerated breakfast. Some postnasal drip. Review of Systems Review of Systems: Per HPI Physical Exam Physical Exam: Gen.: No acute distress. Alert and oriented. HEENT: Anicteric sclera. Temporal wasting noted Cardiac: Regular. Normal S1-S2. Pulmonary: Clear to auscultation bilaterally without wheezes, rales, or rhonchi. Normal respiratory effort. Results & Data Vital Signs (Past 12 Hours) Vital Signs Temp Pulse Resp BP Pulse Ox O2 Del Method 08/06/23 08:45 62 19 97 08/06/23 08:45 85/61 L 08/06/23 08:30 88/56 L 08/06/23 08:30 60 14 96 08/06/23 08:16 87/58 L 08/06/23 08:16 60 20 96 08/06/23 08:00 61 08/06/23 08:00 79/53 L 08/06/23 08:00 61 18 97 08/06/23 08:00 Room Air 08/06/23 07:45 99/64 L 08/06/23 07:45 60 16 99 08/06/23 07:30 104/67 08/06/23 07:30 64 13 97 08/06/23 07:15 96/66 L 08/06/23 07:15 60 14 98 08/06/23 07:00 81 14 98 08/06/23 07:00 97/65 L 08/06/23 06:45 94/62 L 08/06/23 06:45 68 13 98 08/06/23 06:30 64 14 96 08/06/23 06:15 97/65 L 08/06/23 06:15 65 16 96 08/06/23 06:00 97/65 L 08/06/23 06:00 61 15 94 08/06/23 05:45 96/61 L 08/06/23 05:45 65 13 96 08/06/23 05:30 98/69 L 08/06/23 05:30 79 15 97 08/06/23 05:15 103/65 08/06/23 05:15 64 19 94 08/06/23 05:00 90/59 L 08/06/23 05:00 60 17 93 08/06/23 04:45 91/63 L 08/06/23 04:45 60 14 93 08/06/23 04:30 87/56 L 08/06/23 04:30 61 18 91 08/06/23 04:15 60 16 92 08/06/23 04:15 77/52 L 08/06/23 04:00 64 9 L 84 L 08/06/23 04:00 103/67 08/06/23 04:00 36.4 C L 08/06/23 03:45 97/68 L 08/06/23 03:45 60 14 89 L 08/06/23 03:30 103/69 08/06/23 03:30 61 16 95 08/06/23 03:15 67 19 93 08/06/23 03:15 108/73 08/06/23 03:00 104/73 08/06/23 03:00 61 10 L 92 08/06/23 02:45 61 18 96 08/06/23 02:45 103/69 08/06/23 02:30 60 18 94 08/06/23 02:30 110/71 08/06/23 02:15 112/71 08/06/23 02:15 60 12 95 08/06/23 02:00 62 14 91 08/06/23 02:00 110/76 08/06/23 01:45 107/72 08/06/23 01:45 60 17 88 L 08/06/23 01:30 61 10 L 96 08/06/23 01:30 103/72 08/06/23 01:15 96/66 L 08/06/23 01:15 60 9 L 93 08/06/23 01:00 95/65 L 08/06/23 01:00 61 15 91 08/06/23 00:45 70 15 96 08/06/23 00:45 102/65 08/06/23 00:30 96/59 L 08/06/23 00:30 61 17 97 08/06/23 00:15 60 13 97 08/06/23 00:15 87/56 L 08/06/23 00:00 87/57 L 08/06/23 00:00 60 15 91 08/06/23 00:00 36.3 C L 08/06/23 00:00 60 08/05/23 23:45 60 13 91 08/05/23 23:45 85/55 L 08/05/23 23:30 90/55 L 08/05/23 23:30 60 17 92 08/05/23 23:15 60 16 91 05/11/24 23:15 89/56 L 08/05/23 23:00 61 19 91 08/05/23 23:00 91/52 L 08/05/23 22:45 60 19 87 L 08/05/23 22:45 80/56 L 08/05/23 22:30 77/51 L 08/05/23 22:30 60 10 L 92 08/05/23 22:15 72/50 L 08/05/23 22:15 60 14 93 08/05/23 22:00 73/41 L 08/05/23 22:00 60 20 92 08/05/23 21:47 72/39 L 08/05/23 21:47 69 18 08/05/23 21:45 77/40 L 08/05/23 21:45 19 95 08/05/23 21:30 60 18 94 Laboratory Results Abnormal Lab Results 08/02/23 08/06/23 11:30 07:46 WBC 8.76 RBC 2.64 L Hgb 8.9 L Hct 26.7 L MCV 101.1 H MCH 33.7 MCHC 33.3 RDW Std Deviation 56.1 H RDW Coeff of Mariel 15.2 H Plt Count 217 MPV 9.5 Immature Gran % (Auto) 0.6 Neut % (Auto) 83.1 Lymph % (Auto) 8.0 [place] % (Auto) 5.7 Eos % (Auto) 2.4 Baso % (Auto) 0.2 Neut # (Auto) 7.28 H Lymph # (Auto) 0.70 L [place] # (Auto) 0.50 Eos # (Auto) 0.21 Baso # (Auto) 0.02 Immature Gran # (Auto) 0.05 Sodium 137 Potassium 4.0 Chloride 111 H Carbon Dioxide 21 Anion Gap 5 BUN 37 H Creatinine 0.82 Est Cr Clr Drug Dosing 81.2 Est GFR ( Amer) 96.8 Est GFR (Non-Af Amer) 83.5 BUN/Creatinine Ratio 45.1 H Glucose 94 Calcium 8.9 Phosphorus 2.5 Magnesium 1.9 Total Bilirubin 1.3 H AST 18 ALT 8 Alkaline Phosphatase 175 H Total Protein 6.3 Albumin 3.3 L Globulin 3.0 Albumin/Globulin Ratio 1.1 Babesia microti DNA PCR Not Detected PG Care Time/CCT Total # of Minutes Spent Total Time Spent with Patient: Total time spent is greater than 50% in coordination of care (as documented) at patient's floor/unit and/or counseling patient: Coding Level of Care Code 93060 SUB INP/OBS CARE 2/35MIN Diagnoses Septic shock A41.9; R65.21 Cardiac amyloidosis E85.4; I43 Cardiomyopathy I42.9 Cardiomyopathy type: unspecified Atrial fibrillation, permanent I48.21 Heart failure with mid-range ejection fraction I50.22 Heart block I45.9 S/P placement of cardiac pacemaker Z95.0 (3) Cardiomyopathy Cardiomyopathy type: unspecified Qualified Code(s): I42.9 - Cardiomyopathy, unspecified
--- NOTE | 2023-08-06 09:37 | Critical Care Progress Note ---
Date of Service August 06, 2023 Assessment & Plan (1) Septic shock: (2) Fluid overload: (3) Ascites: (4) Staphylococcus aureus bacteremia with sepsis: (5) Compression fracture of body of thoracic vertebra: (6) FILI (acute kidney injury): (7) Cardiomyopathy: (8) Atrial fibrillation, permanent: Plan Impression: 78-year-old male with history of cardiac amyloid/restrictive cardiomyopathy, atrial fibrillation, admitted with persistent back pain, leukocytosis, hypotension and concern for potential infection. He remains pressor dependent. Blood cultures are growing gram-positive cocci which appears to be methicillin sensitive Staph aureus. Portals of entry appear to be skin breakdown 24-hour events: Tristen-Synephrine still present but decreasing in dose. PICC line was placed yesterday. Bladder spasms effectively treated with antispasmodic. Surveillance cultures no growth to date Recommendations: 1. Neurologic: Encephalopathy, appears resolved. Likely metabolic in etiology. Will continue to follow. Ammonia level was normal. [employer] imaging unremarkable. No indication for additional intervention or imaging currently. Will get PT OT involved and get the patient out of bed to chair and see how he does 2. Cardiovascular: History of cardiac amyloid with restrictive cardiomyopathy. EF reduced but stable to prior echocardiograms. Good response to Lasix and albumin yesterday. Will see if we can keep him off pressors today. Continue midodrine. Will dose Lasix on a daily basis as he is reassessed. Continue anticoagulation for A-fib 3. Pulmonary: No current issues. History of sleep disordered breathing. He was ineffectively treated with CPAP and BiPAP in the past and is not currently compliant with therapy. May need supplemental oxygen at night. 4. ID: Methicillin sensitive bacteremia. Surveillance cultures were negative. No evidence of osteo-. He does have an indwelling pacemaker. PICC line placed. Currently on Ancef. Anticipate will need 6 weeks of antibiotics. White blood cell count continues to improve 5. Renal: Appreciate nephrology consultation. BUN and creatinine continue to improve. Hyperkalemia improving. 6. GI: Ascites is -serum ascites albumin gradient of only 0.4 show ascites does not appear consistent with portal hypertension. Cytology pending. Differential showed 17% neutrophils, 13% lymphocytes and 70% mesothelial cells with a total cell count of only 78. No evidence of SBP. Unclear if abdominal amyloid could potentially cause this pattern. No specific therapy would be entertained other than diuretics. 7. Endocrine: No cortisol was normal. Glycemic control per protocol. 8. Heme-onc: Leukocytosis, resolved. Mild decrease in hemoglobin this morning but no signs of active bleeding. No indication for transfusion currently. Unclear significance of the MRI finding. Outpatient bone scan/PET scan may be appropriate 9. Musculoskeletal: Acute/subacute compression fractures as well as severe stenosis. Pain control not an issue. Disposition: Keep the patient in the ICU as long as he is requiring vasopressor agents. When he is off pressors, can likely transfer to the floor and critical care services will sign off Admission and Anticipated Discharge Date Admission Date: August 02, 2023 Subjective Patient seen and examined. EMR reviewed. The patient states that he is feeling better. He was able to get to a chair yesterday. We made some progress with regards to his pressors but they have intermittently had to be restarted. He is not having any abdominal pain. No chest pain or palpitations. Did diurese appropriately with the Lasix given yesterday. He does not report any fevers chi lls or night sweats. Review of Systems Review of Systems: All systems reviewed & are unremarkable except as noted in Subjective Physical Exam Constitutional: WD/WN, vitals as above + thin Neck: trachea midline, no thyromegaly Respiratory: normal respiratory effort, lungs clear to auscultation Cardiovascular: Rate/Rhythm: regular rate Heart Sounds: normal S1, normal S2 and + murmur Extremities: + edema Gastrointestinal (Abdomen): Inspection/Auscultation: + abdomen distended and + abdominal edema Percussion/Palpation: + ascites Musculoskeletal: Extremities: extremities normal to inspection Lymphatic: no cervical lymphadenopathy Results & Data Results & Data Vital Signs (Past 12 Hours) Vital Signs Temp Pulse Resp BP Pulse Ox O2 Del Method 08/06/23 08:45 62 19 97 08/06/23 08:45 85/61 L 08/06/23 08:30 88/56 L 08/06/23 08:30 60 14 96 08/06/23 08:16 87/58 L 08/06/23 08:16 60 20 96 08/06/23 08:00 61 08/06/23 08:00 79/53 L 08/06/23 08:00 61 18 97 08/06/23 08:00 Room Air 08/06/23 07:45 99/64 L 08/06/23 07:45 60 16 99 08/06/23 07:30 104/67 08/06/23 07:30 64 13 97 08/06/23 07:15 96/66 L 08/06/23 07:15 60 14 98 08/06/23 07:00 81 14 98 08/06/23 07:00 97/65 L 08/06/23 06:45 94/62 L 08/06/23 06:45 68 13 98 08/06/23 06:30 64 14 96 08/06/23 06:15 97/65 L 08/06/23 06:15 65 16 96 08/06/23 06:00 97/65 L 08/06/23 06:00 61 15 94 08/06/23 05:45 96/61 L 08/06/23 05:45 65 13 96 08/06/23 05:30 98/69 L 08/06/23 05:30 79 15 97 08/06/23 05:15 103/65 08/06/23 05:15 64 19 94 08/06/23 05:00 90/59 L 08/06/23 05:00 60 17 93 08/06/23 04:45 91/63 L 08/06/23 04:45 60 14 93 08/06/23 04:30 87/56 L 08/06/23 04:30 61 18 91 08/06/23 04:15 60 16 92 08/06/23 04:15 77/52 L 08/06/23 04:00 64 9 L 84 L 08/06/23 04:00 103/67 08/06/23 04:00 36.4 C L 08/06/23 03:45 97/68 L 08/06/23 03:45 60 14 89 L 08/06/23 03:30 103/69 08/06/23 03:30 61 16 95 08/06/23 03:15 67 19 93 08/06/23 03:15 108/73 08/06/23 03:00 104/73 08/06/23 03:00 61 10 L 92 08/06/23 02:45 61 18 96 08/06/23 02:45 103/69 08/06/23 02:30 60 18 94 08/06/23 02:30 110/71 08/06/23 02:15 112/71 08/06/23 02:15 60 12 95 08/06/23 02:00 62 14 91 08/06/23 02:00 110/76 08/06/23 01:45 107/72 08/06/23 01:45 60 17 88 L 08/06/23 01:30 61 10 L 96 08/06/23 01:30 103/72 08/06/23 01:15 96/66 L 08/06/23 01:15 60 9 L 93 08/06/23 01:00 95/65 L 08/06/23 01:00 61 15 91 08/06/23 00:45 70 15 96 08/06/23 00:45 102/65 08/06/23 00:30 96/59 L 08/06/23 00:30 61 17 97 08/06/23 00:15 60 13 97 08/06/23 00:15 87/56 L 08/06/23 00:00 87/57 L 08/06/23 00:00 60 15 91 08/06/23 00:00 36.3 C L 08/06/23 00:00 60 08/05/23 23:45 60 13 91 08/05/23 23:45 85/55 L 08/05/23 23:30 90/55 L 08/05/23 23:30 60 17 92 08/05/23 23:15 60 16 91 08/05/23 23:15 89/56 L 08/05/23 23:00 61 19 91 08/05/23 23:00 91/52 L 08/05/23 22:45 60 19 87 L 08/05/23 22:45 80/56 L 08/05/23 22:30 77/51 L 08/05/23 22:30 60 10 L 92 08/05/23 22:15 72/50 L 08/05/23 22:15 60 14 93 08/05/23 22:00 73/41 L 08/05/23 22:00 60 20 92 08/05/23 21:47 72/39 L 08/05/23 21:47 69 18 08/05/23 21:45 77/40 L 08/05/23 21:45 19 95 Critical Care Results & Data Vital Signs (Past 12 Hours) Vital Signs Temp Pulse Resp BP Pulse Ox O2 Del Method 08/06/23 08:45 62 19 97 08/06/23 08:45 85/61 L 08/06/23 08:30 88/56 L 08/06/23 08:30 60 14 96 08/06/23 08:16 87/58 L 08/06/23 08:16 60 20 96 08/06/23 08:00 61 08/06/23 08:00 79/53 L 08/06/23 08:00 61 18 97 08/06/23 08:00 Room Air 08/06/23 07:45 99/64 L 08/06/23 07:45 60 16 99 08/06/23 07:30 104/67 08/06/23 07:30 64 13 97 08/06/23 07:15 96/66 L 08/06/23 07:15 60 14 98 08/06/23 07:00 81 14 98 08/06/23 07:00 97/65 L 08/06/23 06:45 94/62 L 08/06/23 06:45 68 13 98 08/06/23 06:30 64 14 96 08/06/23 06:15 97/65 L 08/06/23 06:15 65 16 96 08/06/23 06:00 97/65 L 08/06/23 06:00 61 15 94 08/06/23 05:45 96/61 L 08/06/23 05:45 65 13 96 08/06/23 05:30 98/69 L 08/06/23 05:30 79 15 97 08/06/23 05:15 103/65 08/06/23 05:15 64 19 94 08/06/23 05:00 90/59 L 08/06/23 05:00 60 17 93 08/06/23 04:45 91/63 L 08/06/23 04:45 60 14 93 08/06/23 04:30 87/56 L 08/06/23 04:30 61 18 91 08/06/23 04:15 60 16 92 08/06/23 04:15 77/52 L 08/06/23 04:00 64 9 L 84 L 08/06/23 04:00 103/67 08/06/23 04:00 36.4 C L 08/06/23 03:45 97/68 L 08/06/23 03:45 60 14 89 L 08/06/23 03:30 103/69 08/06/23 03:30 61 16 95 08/06/23 03:15 67 19 93 08/06/23 03:15 108/73 08/06/23 03:00 104/73 08/06/23 03:00 61 10 L 92 08/06/23 02:45 61 18 96 08/06/23 02:45 103/69 08/06/23 02:30 60 18 94 08/06/23 02:30 110/71 08/06/23 02:15 112/71 08/06/23 02:15 60 12 95 08/06/23 02:00 62 14 91 08/06/23 02:00 110/76 08/06/23 01:45 107/72 08/06/23 01:45 60 17 88 L 08/06/23 01:30 61 10 L 96 08/06/23 01:30 103/72 08/06/23 01:15 96/66 L 08/06/23 01:15 60 9 L 93 08/06/23 01:00 95/65 L 08/06/23 01:00 61 15 91 08/06/23 00:45 70 15 96 08/06/23 00:45 102/65 08/06/23 00:30 96/59 L 08/06/23 00:30 61 17 97 08/06/23 00:15 60 13 97 08/06/23 00:15 87/56 L 08/06/23 00:00 87/57 L 08/06/23 00:00 60 15 91 08/06/23 00:00 36.3 C L 08/06/23 00:00 60 08/05/23 23:45 60 13 91 08/05/23 23:45 85/55 L 08/05/23 23:30 90/55 L 08/05/23 23:30 60 17 92 08/05/23 23:15 60 16 91 08/05/23 23:15 89/56 L 08/05/23 23:00 61 19 91 08/05/23 23:00 91/52 L 08/05/23 22:45 60 19 87 L 08/05/23 22:45 80/56 L 08/05/23 22:30 77/51 L 08/05/23 22:30 60 10 L 92 08/05/23 22:15 72/50 L 08/05/23 22:15 60 14 93 08/05/23 22:00 73/41 L 08/05/23 22:00 60 20 92 08/05/23 21:47 72/39 L 08/05/23 21:47 69 18 08/05/23 21:45 77/40 L 08/05/23 21:45 19 95 Lab & Micro Results (Past 24 Hours) RBC 2.64 M/uL (4.70-6.10) L 08/06/23 WBC 8.76 K/ul (4.8-10.8) 08/06/23 Hgb 8.9 g/dl (14.0-18.0) L 08/06/23 Hct 26.7 % (42.0-52.0) L 08/06/23 MCV 101.1 fL (80.0-100.0) H 08/06/23 MCH 33.7 pg (25.0-34.0) 08/06/23 MCHC 33.3 g/dL (32.0-36.0) 08/06/23 RDW Standard Deviation 56.1 fL (36.4-46.3) H 08/06/23 RDW Coefficient of Variation 15.2 % (11.5-14.5) H 08/06/23 Plt Count 217 K/uL (130-400) 08/06/23 MPV 9.5 fL (9.4-12.4) 08/06/23 Neutrophils (%) (Auto) 83.1 % 08/06/23 Lymphocytes (%) (Auto) 8.0 % 08/06/23 Monocytes # (Auto) 0.50 K/uL (0.11-0.59) 08/06/23 Eosinophils # (Auto) 0.21 K/uL (0.00-0.50) 08/06/23 Immature Granulocyte % (Auto) 0.6 % 08/06/23 Neutrophils # (Auto) 7.28 K/uL (1.40-6.50) H 08/06/23 Lymphocytes # (Auto) 0.70 K/uL (1.20-3.40) L 08/06/23 Monocytes # (Auto) 0.50 K/uL (0.11-0.59) 08/06/23 Eosinophils # (Auto) 0.21 K/uL (0.00-0.50) 08/06/23 Basophils # (Auto) 0.02 K/uL (0.00-0.20) 08/06/23 Immature Granulocyte # (Auto) 0.05 K/uL (0.01-0.20) 4 Na 137 mmol/L (136-145) 08/06/23 K 4.0 mmol/L (3.5-5.1) 08/06/23 Cl 111 mmol/L (98-107) H 08/06/23 CO2 21 mmol/L (21-32) 08/06/23 Anion Gap 5 (3-11) 08/06/23 BUN 37 mg/dl (6-23) H 08/06/23 Creatinine 0.82 mg/dl (0.6-1.4) 08/06/23 Estimated GFR ( Amer) 96.8 ml/min 08/06/23 Estimated GFR (Non-Af Amer) 83.5 ml/min 08/06/23 BUN/Creatinine Ratio 45.1 (10-20) H 08/06/23 Glu 94 mg/dl (70-99(Fasting)) 08/06/23 Ca 8.9 mg/dl (8.6-10.3) 08/06/23 Phosphorus Level 2.5 mg/dl (2.5-4.9) 08/06/23 Total Bilirubin 1.3 mg/dl (0.2-1.0) H 08/06/23 AST 18 U/L (13-39) 08/06/23 ALT 8 U/L (7-52) 08/06/23 Alkaline Phosphatase 175 U/L (34-104) H 08/06/23 TP 6.3 gm/dl (6.0-8.3) 08/06/23 Albumin 3.3 gm/dl (3.4-5.0) L 08/06/23 Globulin 3.0 gm/dl (2.5-4.0) 08/06/23 Albumin/Globulin Ratio 1.1 (0.9-2) 08/06/23 Mg 1.9 mg/dl (1.7-2.4) 08/06/23 07:46 Calcium Level 8.9 mg/dl (8.6-10.3) 08/06/23 07:46 Microbiology 08/03/23 10:02 Aerobic Blood Culture - Preliminary Blood No growth in Aerobic bottle after 48 hours. Anaerobic Blood Culture - Preliminary No growth in Anaerobic bottle after 48 hours. 08/03/23 09:56 Aerobic Blood Culture - Preliminary Blood No growth in Aerobic bottle after 48 hours. Anaerobic Blood Culture - Preliminary No growth in Anaerobic bottle after 48 hours. 08/03/23 09:29 Urine Culture - Final Urine,Clean Catch No growth - less than 1,000 colonies/mL. 08/03/23 Unknown Gram Stain - Final Peritoneal Fluid Aerobic and Anaerobic Culture - Preliminary No growth to date. 08/02/23 16:09 Aerobic Blood Culture - Preliminary Blood No growth in Aerobic bottle after 48 hours. Anaerobic Blood Culture - Preliminary Staphylococcus aureus I & O Totals 24 Hours 08/05/23 08/06/23 08/07/23 06:59 06:59 06:59 Intake Total 3385.840 / 3385.840 1817.204 / 1817.204 12.667 / 12.667 Output Total 1531 / 1531 4101 / 4101 Balance 1854.840 / 1854.840 -2283.796 / -2283.796 12.667 / 12.667 Cumulative 08/02/23 11:08 thru 08/06/23 07:50 Intake Total 57744.431 Output Total 19381 Balance 1486.431 RT Ventilator Mngmt (Last Documented) Ventilator Ordered Settings Respiratory Rate 19 08/06/23 08:45 Ventilator - PT Measurements Respiratory Rate 19 Coding Level of Care Code 95586 SUB INP/OBS CARE 3/50MIN Diagnoses Septic shock A41.9; R65.21 Fluid overload E87.70 Hypervolemia type: unspecified Ascites R18.8 Staphylococcus aureus bacteremia with sepsis A41.01 Compression fracture of body of thoracic vertebra S22.000A FILI (acute kidney injury) N17.9 Cardiomyopathy I42.9 Cardiomyopathy type: unspecified Atrial fibrillation, permanent I48.21 (2) Fluid overload Hypervolemia type: unspecified Qualified Code(s): E87.70 - Fluid overload, unspecified (7) Cardiomyopathy Cardiomyopathy type: unspecified Qualified Code(s): I42.9 - Cardiomyopathy, unspecified
[2023-08-06] MEDS: FUROSEMIDE INJ 20 MG/2 ML VIAL IV ONE (10:10)
[2023-08-06] MEDS: ALBUMIN 25% 25 GM/100 ML VIAL IV SCH (10:10)
--- NOTE | 2023-08-06 13:07 | Hospitalist Progress Note ---
Date of Service August 06, 2023 Assessment & Plan (1) Shock: Plan: Suspected septic shock secondary to MSSA bacteremia source skin, in the context of amyloid cardiomyopathy 1 of 4 blood cultures are positive on the initial set gram-positive cocci. Paracentesis / ascitic culture negative to date Patient with multiple skin bruises of possible portal of entry. CTchest with moderate pulmonary edema no defined infiltrates or commented upon CTA/P is with large volume ascites, Previous history of cholecystectomy -MRI of spine does not suggest epidural abscess but does note L1 compression fracture and L3-4 spinal stenosis -Tickborne illness/infection studies are negative Infectious disease consultation treating for staph bacteremia. MSSA confirmed de-escalate to Ancef 08/04/23 PICC placed as subsequent cx negative Patient remains on blood pressure support phenylephrine and additional po midodrine (2) Cardiac amyloidosis: Plan: Cardiac amyloidosis typically managed at [facility]. Repeat echocardiogram shows EF approximately 40-45%, similar to March heart failure with midrange ejection fraction Acute on chronic mid range CHF Dual-chamber pacemaker in place for heart block EKG is ventricular paced rhythm. Troponin is elevated from demand ischemia do not suspect acute coronary syndrome Tafamidis continued Cardiology is consulted. cxr of 08/03 continues with pulmonary edema. ckd 3 diuresis on 08/04 and (3) Atrial fibrillation, permanent: Plan: History of A-fib/a flutter, history of heart block s/p pacer Anticoagulation continued, Cr improved dose increase to apixaban 5mg bid Metoprolol held for hypotension Paced rhythm on EKG, concern of staph bacteremia with implanted devices (4) Central sleep apnea: Plan: CPAP nightly Plan DVT prophylaxis: Anticoagulated with Eliquis now currently on hold PT/OT with concerns for going home but improving Admission and Anticipated Discharge Date Admission Date: August 02, 2023 Subjective The patient states that he is feeling better. He was able to get to a chair today. Bladder spasms are resolved but pt does not want to remove whitman at this time has some left heel pain, no changes to skin on inspection off pressors at the moment updated family at bedside Physical Exam Physical Exam: Patient is awake he is oriented x 3 Cardiac exam is regular no murmurs or peripheral stigmata of endocarditis Abdomen dull no focal tenderness Extremities are with changes of chronic venous stasis bruising and skin discoloration, 1+ edema heel with some skin cracking on the right, left heel is intact Results & Data Results & Data Vital Signs (Past 12 Hours) Vital Signs Temp Pulse Resp BP Pulse Ox O2 Del Method 08/06/23 08:45 62 19 97 08/06/23 08:45 85/61 L 08/06/23 08:30 88/56 L 08/06/23 08:30 60 14 96 08/06/23 08:16 87/58 L 08/06/23 08:16 60 20 96 08/06/23 08:00 Room Air 08/06/23 08:00 61 08/06/23 08:00 79/53 L 08/06/23 08:00 61 18 97 08/06/23 08:00 Room Air 08/06/23 07:45 99/64 L 08/06/23 07:45 60 16 99 08/06/23 07:30 104/67 08/06/23 07:30 64 13 97 08/06/23 07:15 96/66 L 08/06/23 07:15 60 14 98 08/06/23 07:00 81 14 98 08/06/23 07:00 97/65 L 08/06/23 06:45 94/62 L 08/06/23 06:45 68 13 98 08/06/23 06:30 64 14 96 08/06/23 06:15 97/65 L 08/06/23 06:15 65 16 96 08/06/23 06:00 97/65 L 08/06/23 06:00 61 15 94 08/06/23 05:45 96/61 L 08/06/23 05:45 65 13 96 08/06/23 05:30 98/69 L 08/06/23 05:30 79 15 97 08/06/23 05:15 103/65 08/06/23 05:15 64 19 94 08/06/23 05:00 90/59 L 08/06/23 05:00 60 17 93 08/06/23 04:45 91/63 L 08/06/23 04:45 60 14 93 08/06/23 04:30 87/56 L 08/06/23 04:30 61 18 91 08/06/23 04:15 60 16 92 08/06/23 04:15 77/52 L 08/06/23 04:00 64 9 L 84 L 08/06/23 04:00 103/67 08/06/23 04:00 97.5 F L 08/06/23 03:45 97/68 L 08/06/23 03:45 60 14 89 L 08/06/23 03:30 103/69 08/06/23 03:30 61 16 95 08/06/23 03:15 67 19 93 08/06/23 03:15 108/73 08/06/23 03:00 104/73 08/06/23 03:00 61 10 L 92 08/06/23 02:45 61 18 96 08/06/23 02:45 103/69 08/06/23 02:30 60 18 94 08/06/23 02:30 110/71 08/06/23 02:15 112/71 08/06/23 02:15 60 12 95 08/06/23 02:00 62 14 91 08/06/23 02:00 110/76 08/06/23 01:45 107/72 08/06/23 01:45 60 17 88 L 08/06/23 01:30 61 10 L 96 08/06/23 01:30 103/72 08/06/23 01:15 96/66 L 08/06/23 01:15 60 9 L 93 Laboratory Results reviewed cbc reviewed chemistry PG Care Time/CCT Total # of Minutes Spent Total Time Spent with Patient: Total time spent is greater than 50% in coordination of care (as documented) at patient's floor/unit and/or counseling patient: Coding Level of Care Code 56689 SUB INP/OBS CARE 2/35MIN Diagnoses Shock R57.9 Cardiac amyloidosis E85.4; I43 Atrial fibrillation, permanent I48.21 Central sleep apnea G47.31
[2023-08-07 04:31] LABS: Albumin Globulin Ratio 1.2 (0.9-2); Albumin Level 3.4 gm/dl (3.4-5.0); BUN Creatinine Ratio 47.4 (10-20); Bilirubin,Total 1.4 mg/dl (0.2-1.0); Calcium 8.8 mg/dl (8.6-10.3); Creatinine Clr Calc Pharmacy 85.4 ml/min; Est GFR (African American) 98.8 ml/min; Est GFR (Non-African American) 85.3 ml/min; Globulin 2.8 gm/dl (2.5-4.0); Potassium 3.8 mmol/L (3.5-5.1); Total Protein 6.2 gm/dl (6.0-8.3)
[2023-08-07 04:48] LABS: Basophils # (auto) 0.02 K/uL (0.00-0.20); Basophils % (auto) 0.2 %; Eosinophils # (auto) 0.18 K/uL (0.00-0.50); Eosinophils % (auto) 2.2 %; Hematocrit (blood only) 25.7 % (42.0-52.0); Hemoglobin 8.6 g/dl (14.0-18.0); Immature Granulocytes # (auto) 0.06 K/uL (0.01-0.20); Immature Granulocytes % (auto) 0.7 %; Lymphocytes # (auto) 0.59 K/uL (1.20-3.40); Lymphocytes % (auto) 7.3 %; Mean Corpuscular Hemoglobin 33.5 pg (25.0-34.0); Mean Corpuscular Hgb Conc 33.5 g/dL (32.0-36.0); Mean Platelet Volume 9.6 fL (9.4-12.4); Monocytes # (auto) 0.49 K/uL (0.11-0.59); Monocytes % (auto) 6.1 %; Neutrophils # (auto) 6.74 K/uL (1.40-6.50); Neutrophils % (auto) 83.5 %; Platelet Count 220 K/uL (130-400); RDW Coefficient of Variation 14.8 % (11.5-14.5); Red Blood Count 2.57 M/uL (4.70-6.10); White Blood Count 8.08 K/ul (4.8-10.8)
--- NOTE | 2023-08-07 08:58 | Infectious Disease Progress Nt ---
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 He has a history of progressive gait instability, follows with neurology. He endorses a fall a few months ago but not recently. He denies any recent trauma to the back, fever, chills, change in bowel or urinary habits, shortness of breath, nausea, vomiting. He reports some weight loss. In the ED, he was afebrile but hypotensive with SBPs in the 70s80s. Labs noted for a WBC of 15 K--> 20.26K, BUN 92, creatinine 1.83, procalcitonin 1.85. Blood cultures obtained: MSSA on bio fire. TTE with small pericardial effusion without evidence of tamponade physiology. No valve vegetations. EF 45 to 50%. CTAB showed a large amount of ascites s/p paracentesis, cx ngtd. Thoracic spine shows T12 moderate compression which may be associated with avascular necrosis. Possible bony metastatic disease notably at the left T2 pedicle. No discitis, osteomyelitis, epidural abscess. Lumbar spine shows mild L1 compression fracture and with severe diffuse degenerative disc disease with severe central spinal stenosis at L3-L4. He was started on pressors (Tristen-Synephrine). He was started on meropenem and vancomycin. ID consulted for bacteremia. Narrowed to Cefazolin. Spinal MRI negative for discitis, OM. Thoracic Spinal MRI Possible bony metastatic disease, most notably left T2 pedicle. He was evaluated in the ICU. On my initial exam, he complains of gluteal cleft pain and bilateral heel pain left greater than right. He denies any open draining wounds Micro: Blood cultures 08/01 Staph sp (MSSA -biofire no MECA bio fire) Urine culture 08/02 NG Blood culture 08/02NGTD Ascites fluid 08/02 few WBCs seen, no organisms seen, cultures NGTD Antibiotics: Vancomycin Meropenem 08/01-08/02 Cefazolin 08/03- #Septic shock, on pressors, resolved #MSSA and staph species (+ on BCID) bacteremia, cleared 08/02 #Ascites, No SBP #Heel/Foot and gluteal cleft SSTI/ cellulitis #Multiple skin abnormalities #PPM #Acute on chronic back pain, resolved # Leukocytosis, resolved #FILI, resolved MSSA bacteremia is likely secondary to a skin source. He has multiple skin abnormalities and areas of cellulitis on exam. Left heel/ankle and gluteal cleft cellulitis. He has several area of skin break down. Pacemaker in place but no s/o infection on exam.TTE with no valvular vegetations. No other hardware or prosthetics. He has acute on chronic back pain No evidence of osteomyelitis/discitis/spinal abscess on spine MRI imaging. Imaging shows T12 compression which may be associated with avascular necrosis. Possible bony metastatic disease notably at the left T2 pedicles and lumbar spinal stenosis. He has ascites on exam but is not febrile and abdomen w/o tenderness pain. Ascites fluid with 78 WBCs. I doubt SBP. He has no central lines . BL LE xray with findings c/f cellulitis Anticipate 6 weeks of treatment in setting of PPM with discussion of either repeating blood culture at end of treatment vs oral suppressive antibiotic. Spoke with patient regarding this pland and will plan for 6 weeks of IV therapy with planned blood cultures 3-7 days after completion of antbiotics Recommendations. Continue with cefazolin 2G IV TID Wound care to feet Plan for 6 weeks of IV ABX from first negative blood culture through 09/13/23 with weekly CBC with diff, CMP Patient will need follow up with his primary care physician for these labs - Our ID will not follow as outpatient Prefer that he has community ID follow up I would ask after abx are done that he has repeat blood cultures in 3-7 days after completion of abx in settinhg of PPM He also needs imaging of T2 area (nontender and asymptomatic today) to follow abnl on MRI PICC line placed, picc line hygiene discussed Please page ID w any questions, will sign off at this time. Inez Hernandez MD Infectious Diseases [facility] Admission and Anticipated Discharge Date Admission Date: August 02, 2023 Subjective Subsequent visit was provided via telemedicine using two-way real-time interactive telecommunication between the patient and the telemedicine provider. For the duration of the visit, the provider was performing the assessment from a different facility than the patient. This includesuse of bluetooth stethoscope forauscultationperformed by the telepresenter that the telemedicine provider can hear if described in the physical exam. Associate Director contact information: Please call [facility] Call Center [phone]. (Phone Number For Physician Use Only) After establishing a telemedicine visit, patient was: Patient was verified with two unique identifiers, Patient/authorized rep acknowledged consent and understanding and Gave permission to continue telehealth session Time Spent with Patient: Subsequent => 35 min Feels well No complaints Physical Exam Physical Exam: pacemaker site c/d/i L foot w/o cellulitis, calcaneal ulcer R foot erythema, closed lesion on lateral foot PICC line R arm Results & Data Vital Signs (Past 12 Hours) Vital Signs Temp Pulse Resp BP Pulse Ox 08/07/23 07:00 103/69 08/07/23 07:00 60 16 92 08/07/23 06:30 84 18 99 08/07/23 06:30 101/66 08/07/23 06:00 60 15 93 08/07/23 05:00 61 14 98 08/07/23 04:00 60 6 L 95 08/07/23 04:00 36.7 C 08/07/23 03:00 60 12 93 08/07/23 02:30 99/63 L 08/07/23 02:30 62 17 96 08/07/23 02:00 92/61 L 08/07/23 02:00 60 15 94 08/07/23 01:30 95/63 L 08/07/23 01:30 64 17 93 08/07/23 01:00 93/60 L 08/07/23 01:00 60 20 98 08/07/23 00:30 95/58 L 08/07/23 00:30 60 16 97 08/07/23 00:00 60 15 96 08/07/23 00:00 95/60 L 08/07/23 00:00 36.8 C 08/07/23 00:00 63 08/06/23 23:30 60 15 94 08/06/23 23:30 100/66 08/06/23 23:00 60 15 94 08/06/23 23:00 95/59 L 08/06/23 22:30 95/60 L 08/06/23 22:30 64 14 95 08/06/23 22:01 87/63 L 08/06/23 22:01 104 H 20 90 08/06/23 22:00 60 15 98 08/06/23 21:30 97/59 L 08/06/23 21:30 60 17 97 08/06/23 21:00 60 15 94 08/06/23 21:00 99/65 L Laboratory Results Laboratory Results - last 48 hr 08/02/23 08/06/23 08/07/23 11:30 07:46 03:44 WBC 8.76 8.08 RBC 2.64 L 2.57 L Hgb 8.9 L 8.6 L Hct 26.7 L 25.7 L MCV 101.1 H 100.0 MCH 33.7 33.5 MCHC 33.3 33.5 RDW Std Deviation 56.1 H 54.0 H RDW Coeff of Mariel 15.2 H 14.8 H Plt Count 217 220 MPV 9.5 9.6 Immature Gran % (Auto) 0.6 0.7 Neut % (Auto) 83.1 83.5 Lymph % (Auto) 8.0 7.3 Harper % (Auto) 5.7 6.1 Eos % (Auto) 2.4 2.2 Baso % (Auto) 0.2 0.2 Neut # (Auto) 7.28 H 6.74 H Lymph # (Auto) 0.70 L 0.59 L Harper # (Auto) 0.50 0.49 Eos # (Auto) 0.21 0.18 Baso # (Auto) 0.02 0.02 Immature Gran # (Auto) 0.05 0.06 Sodium 137 136 Potassium 4.0 3.8 Chloride 111 H 109 H Carbon Dioxide 21 19 L Anion Gap 5 8 BUN 37 H 37 H Creatinine 0.82 0.78 Est Cr Clr Drug Dosing 81.2 85.4 Est GFR ( Amer) 96.8 98.8 Est GFR (Non-Af Amer) 83.5 85.3 BUN/Creatinine Ratio 45.1 H 47.4 H Glucose 94 91 Calcium 8.9 8.8 Phosphorus 2.5 Magnesium 1.9 Total Bilirubin 1.3 H 1.4 H AST 18 15 ALT 8 4 L Alkaline Phosphatase 175 H 175 H Total Protein 6.3 6.2 Albumin 3.3 L 3.4 Globulin 3.0 2.8 Albumin/Globulin Ratio 1.1 1.2 Babesia microti DNA PCR Not Detected Microbiology 08/03/23 Unknown Peritoneal Fluid Gram Stain - Final 08/03/23 Unknown Peritoneal Fluid Aerobic and Anaerobic Culture - Preliminary No growth to date. 08/03/23 10:02 Blood Aerobic Blood Culture - Preliminary No growth in Aerobic bottle after 48 hours. 08/03/23 10:02 Blood Anaerobic Blood Culture - Preliminary No growth in Anaerobic bottle after 48 hours. 08/03/23 09:56 Blood Aerobic Blood Culture - Preliminary No growth in Aerobic bottle after 48 hours. 08/03/23 09:56 Blood Anaerobic Blood Culture - Preliminary No growth in Anaerobic bottle after 48 hours. 08/03/23 09:29 Urine,Clean Catch Urine Culture - Final No growth - less than 1,000 colonies/mL. 08/02/23 16:09 Blood Aerobic Blood Culture - Preliminary No growth in Aerobic bottle after 48 hours. 08/02/23 16:09 Blood Anaerobic Blood Culture - Preliminary Staphylococcus aureus 08/02/23 16:06 Blood Aerobic Blood Culture - Preliminary No growth in Aerobic bottle after 48 hours. 08/02/23 16:06 Blood Anaerobic Blood Culture - Final
--- NOTE | 2023-08-07 14:36 | Cardiology Progress Note ---
Date of Service August 07, 2023 Assessment & Plan (1) Septic shock: (2) Cardiac amyloidosis: (3) Cardiomyopathy: (4) Atrial fibrillation, permanent: (5) Heart failure with mid-range ejection fraction: (6) Heart block: (7) S/P placement of cardiac pacemaker: Plan ASSESSMENT/PLAN: 1. Septic shock: Resolved. Normotensive without pressor support. On systemic antibiotics. Planning for several weeks of antibiotic. 2. Heart failure with midrange EF: He does not appear to have pulmonary edema although he has significant lower extremity edema and likely ascites. I think we will simply need to accept an element of edema provided he feels well, oxygen nights well and can ambulate. 3. 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 Poor prognosis. 4. Cardiomyopathy: Previously on metoprolol succinate, spironolactone and losartan. Medications can be gradually reintroduced depending on blood pressure. 5. Permanent atrial fibrillation/flutter: On anticoagulation for stroke risk reduction. Overall rate control well controlled with 100% pacing. He seems to have an adequate rate response with deep inspiration and activity. 6. Complete heart block s/p pacemaker: Ventricular pacing. Unfortunately, with his degree of LV dysfunction he would benefit from an upgrade of the device to include a coronary sinus lead. However, given his overall tenuous blood pressure and poor prognosis, I am not confident he would have significant benefit or if the procedure could be performed safely. 7. Bacteremia: PICC line in place. Planning on several weeks of antibiotics. I think his blood pressure is stable today will have an opportunity to reintroduce the medications tomorrow. I would likely start with metoprolol succinate at a low dose. Think his main limitation now is simply ambulation due primarily to left heel pain an element of mild weakness. Admission and Anticipated Discharge Date Admission Date: August 02, 2023 Subjective This afternoon patient claims feeling well. His main complaint is left heel pain. This is most noticeable when bearing weight on the foot. He denies breathing difficulty. He was up in a chair for few hours earlier today. Some difficulty with ambulation due to the left foot pain. Physical Exam Physical Exam: Gen.: No acute distress. Alert and oriented. HEENT: Anicteric sclera. Temporal wasting noted Cardiac: Regular. Normal S1-S2. Pulmonary: Clear to auscultation bilaterally without wheezes, rales, or rhonchi. Normal respiratory effort. Extremities: Moderate pitting edema bilaterally in the lower extremities Results & Data Vital Signs (Past 12 Hours) Vital Signs Temp Pulse Resp BP Pulse Ox O2 Del Method 08/07/23 12:00 81 18 83 L 08/07/23 12:00 119/76 08/07/23 11:30 122/78 08/07/23 11:30 64 17 08/07/23 11:00 62 15 08/07/23 10:00 118/77 08/07/23 10:00 79 21 08/07/23 09:56 69 22 98 08/07/23 09:56 105/71 08/07/23 09:53 72 17 98 08/07/23 09:53 108/77 08/07/23 09:30 60 16 97 08/07/23 09:30 109/74 08/07/23 09:00 113/74 08/07/23 09:00 61 15 98 08/07/23 08:30 99/70 L 08/07/23 08:30 66 16 99 08/07/23 08:00 60 17 98 08/07/23 08:00 Room Air 08/07/23 08:00 65 08/07/23 07:00 103/69 08/07/23 07:00 60 16 92 08/07/23 06:30 84 18 99 08/07/23 06:30 101/66 08/07/23 06:00 60 15 93 08/07/23 05:00 61 14 98 08/07/23 04:00 60 6 L 95 08/07/23 04:00 36.7 C 08/07/23 03:00 60 12 93 Laboratory Results Abnormal Lab Results 08/07/23 03:44 WBC 8.08 RBC 2.57 L Hgb 8.6 L Hct 25.7 L MCV 100.0 MCH 33.5 MCHC 33.5 RDW Std Deviation 54.0 H RDW Coeff of Mariel 14.8 H Plt Count 220 MPV 9.6 Immature Gran % (Auto) 0.7 Neut % (Auto) 83.5 Lymph % (Auto) 7.3 [place] % (Auto) 6.1 Eos % (Auto) 2.2 Baso % (Auto) 0.2 Neut # (Auto) 6.74 H Lymph # (Auto) 0.[address] [place] # (Auto) 0.49 Eos # (Auto) 0.18 Baso # (Auto) 0.02 Immature Gran # (Auto) 0.06 Sodium 136 Potassium 3.8 Chloride 109 H Carbon Dioxide 19 L Anion Gap 8 BUN 37 H Creatinine 0.78 Est Cr Clr Drug Dosing 85.4 Est GFR ( Amer) 98.8 Est GFR (Non-Af Amer) 85.3 BUN/Creatinine Ratio 47.4 H Glucose 91 Calcium 8.8 Total Bilirubin 1.4 H AST 15 ALT 4 L Alkaline Phosphatase 175 H Total Protein 6.2 Albumin 3.4 Globulin 2.8 Albumin/Globulin Ratio 1.2 PG Care Time/CCT Total # of Minutes Spent Total Time Spent with Patient: Total time spent is greater than 50% in coordination of care (as documented) at patient's floor/unit and/or counseling patient: Coding Level of Care Code 85468 SUB INP/OBS CARE 2/35MIN Diagnoses Septic shock A41.9; R65.21 Cardiac amyloidosis E85.4; I43 Cardiomyopathy I42.9 Cardiomyopathy type: unspecified Atrial fibrillation, permanent I48.21 Heart failure with mid-range ejection fraction I50.22 Heart block I45.9 S/P placement of cardiac pacemaker Z95.0 (3) Cardiomyopathy Cardiomyopathy type: unspecified Qualified Code(s): I42.9 - Cardiomyopathy, unspecified
--- NOTE | 2023-08-07 16:14 | Hospitalist Progress Note ---
Date of Service August 07, 2023 Assessment & Plan (1) Shock: Plan: Suspected septic shock secondary to MSSA bacteremia source skin, in the context of amyloid cardiomyopathy 1 of 4 blood cultures are positive with MSSA, ID recommneds 6 weeks treatment from first negative blood cx LD 09/13/23 weekly cbc cmp followed by pcp Paracentesis / ascitic culture negative to date Patient with multiple skin bruises of possible portal of entry. CTchest with moderate pulmonary edema no defined infiltrates or commented upon CTA/P is with large volume ascites, Previous history of cholecystectomy -MRI of spine does not suggest epidural abscess but does note L1 compression fracture and L3-4 spinal stenosis -Tickborne illness/infection studies are negative Infectious disease consultation treating for staph bacteremia. MSSA confirmed de-escalate to Ancef 08/04/23 PICC placed as subsequent cx negative Patient remains on blood pressure support phenylephrine and additional po midodrine (2) Cardiac amyloidosis: Plan: Cardiac amyloidosis typically managed at [facility]. Repeat echocardiogram shows EF approximately 40-45%, similar to March heart failure with midrange ejection fraction Acute on chronic mid range CHF Dual-chamber pacemaker in place for heart block EKG is ventricular paced rhythm. Troponin is elevated from demand ischemia do not suspect acute coronary syndrome Tafamidis continued Cardiology is consulted. cxr of 08/03 continues with pulmonary edema. ckd 3 diuresis on 08/04 and pt currently requires midodrine to support blood pressure, will try to taper and resume Guideline based meds for HF (3) Atrial fibrillation, permanent: Plan: History of A-fib/a flutter, history of heart block s/p pacer Anticoagulation continued, Cr improved dose increase to apixaban 5mg bid Metoprolol held for hypotension Paced rhythm on EKG, concern of staph bacteremia with implanted devices (4) Central sleep apnea: Plan: CPAP nightly Plan DVT prophylaxis: Anticoagulated with Eliquis now currently on hold noting concern for T2 lesion that is undefined, will need CT follow up PT/OT with concerns for going home but improving Admission and Anticipated Discharge Date Admission Date: August 02, 2023 Subjective Patient seen in company of his family He is tentatively getting out of bed removing Ortega catheter He is not exhibiting any shortness of breath or chest pain complaints. He was eating well. His buttocks and heel pain have improved. Physical Exam Physical Exam: Patient is awake he is oriented x 3 Cardiac exam is regular no murmurs, remains without peripheral stigmata of endocarditis Abdomen dull no focal tenderness, shifting dullness cw ascites Extremities are with changes of chronic venous stasis bruising and skin discoloration, 1+ edema Results & Data Results & Data Vital Signs (Past 12 Hours) Vital Signs Pulse Resp BP Pulse Ox O2 Del Method 08/07/23 12:00 81 18 83 L 08/07/23 12:00 119/76 08/07/23 11:30 122/78 08/07/23 11:30 64 17 08/07/23 11:00 62 15 08/07/23 10:00 118/77 08/07/23 10:00 79 21 08/07/23 09:56 69 22 98 08/07/23 09:56 105/71 08/07/23 09:53 72 17 98 08/07/23 09:53 108/77 08/07/23 09:30 60 16 97 08/07/23 09:30 109/74 08/07/23 09:00 113/74 08/07/23 09:00 61 15 98 08/07/23 08:30 99/70 L 08/07/23 08:30 66 16 99 08/07/23 08:00 60 17 98 08/07/23 08:00 Room Air 08/07/23 08:00 65 08/07/23 07:00 103/69 08/07/23 07:00 60 16 92 08/07/23 06:30 84 18 99 08/07/23 06:30 101/66 08/07/23 06:00 60 15 93 08/07/23 05:00 61 14 98 Laboratory Results Reviewed CBC reviewed chemistry reviewed all meds and orders for transfer to lower level of care PG Care Time/CCT Total # of Minutes Spent Total Time Spent with Patient: Total time spent is greater than 50% in coordination of care (as documented) at patient's floor/unit and/or counseling patient: Coding Level of Care Code 46401 SUB INP/OBS CARE 3/50MIN Diagnoses Shock R57.9 Cardiac amyloidosis E85.4; I43 Atrial fibrillation, permanent I48.21 Central sleep apnea G47.31
[2023-08-08 04:43] LABS: Basophils # (auto) 0.02 K/uL (0.00-0.20); Basophils % (auto) 0.2 %; Eosinophils # (auto) 0.13 K/uL (0.00-0.50); Eosinophils % (auto) 1.4 %; Hematocrit (blood only) 25.7 % (42.0-52.0); Hemoglobin 8.6 g/dl (14.0-18.0); Immature Granulocytes # (auto) 0.07 K/uL (0.01-0.20); Immature Granulocytes % (auto) 0.7 %; Lymphocytes # (auto) 0.68 K/uL (1.20-3.40); Lymphocytes % (auto) 7.2 %; Mean Corpuscular Hemoglobin 33.7 pg (25.0-34.0); Mean Corpuscular Hgb Conc 33.5 g/dL (32.0-36.0); Mean Corpuscular Volume 100.8 fL (80.0-100.0); Mean Platelet Volume 9.5 fL (9.4-12.4); Monocytes # (auto) 0.48 K/uL (0.11-0.59); Monocytes % (auto) 5.1 %; Neutrophils # (auto) 8.07 K/uL (1.40-6.50); Neutrophils % (auto) 85.4 %; Platelet Count 222 K/uL (130-400); RDW Standard Deviation 54.5 fL (36.4-46.3); Red Blood Count 2.55 M/uL (4.70-6.10); White Blood Count 9.45 K/ul (4.8-10.8)
[2023-08-08 04:54] LABS: Anion Gap 8 (3-11); BUN Creatinine Ratio 42.2 (10-20); Blood Urea Nitrogen 35 mg/dl (6-23); Calcium 8.6 mg/dl (8.6-10.3); Carbon Dioxide 20 mmol/L (21-32); Chloride 108 mmol/L (98-107); Creatinine Clr Calc Pharmacy 80.2 ml/min; Est GFR (African American) 96.3 ml/min; Est GFR (Non-African American) 83.1 ml/min; Glucose 92 mg/dl (70-99(Fasting)); Potassium 3.8 mmol/L (3.5-5.1); Sodium 136 mmol/L (136-145)
[2023-08-08 04:59] LABS: Alanine Aminotransferase < 3 U/L (7-52); Albumin Globulin Ratio 1.1 (0.9-2); Albumin Level 3.2 gm/dl (3.4-5.0); Alkaline Phosphatase 188 U/L (34-104); Aspartate Aminotransferase 14 U/L (13-39); Bilirubin,Total 1.2 mg/dl (0.2-1.0); Globulin 2.9 gm/dl (2.5-4.0); Total Protein 6.1 gm/dl (6.0-8.3)
[2023-08-08 13:08] LABS: Ehrlichia chaff DNA Bld Negative (Negative)
--- NOTE | 2023-08-08 16:58 | Podiatry Consultation ---
Date of Consultation August 08, 2023 Assessment & Plan (1) Abscess of left foot: (2) Sepsis: Acute renal failure type: unspecified Sepsis acute organ dysfunction status: with acute organ dysfunction Sepsis type: sepsis due to unspecified organism Severe sepsis acute organ dysfunction type: acute renal failure Severe sepsis shock status: with septic shock Qualified Code(s): A41.9 - Sepsis, unspecified organism; R65.21 - Severe sepsis with septic shock; N17.9 - Acute kidney failure, unspecified (3) Staphylococcus aureus bacteremia with sepsis: (4) Gait disturbance: Plan Patient examined and evaluated. Chart and plain film imaging reviewed. Discussed case with Dr. Parks. Recommend MRI prior to I&D. NPO at midnight for I&D with cultures tomorrow 08/09/23. Will add on for procedure in OR likely later in the day. Extent of I&D will be determined by the MRI results, but if it can't be performed beforehand, he would still benefit from this debridement/drainage. Will plan wound care and further treatment based on those findings, both of MRI and intraop findings. We look forward to helping out Dr. Bashir. Thank you for the consult. History of Present Illness Reason for Consultation: Left heel pain Requesting Physician: Lb Parks MD Attending Physician: Lb Parks MD History of Present Illness This patient is an 78 y/o male with increasing left heel pain after being admitted for sepsis. Patient denies any inciting injury or trauma to the left heel. Reports he has had bilateral heel pain in the past, but currently his left heel much more painful. Reports he cannot tolerate any pressure to the bottom of his left heel. He reports overall improvement with IV antibiotics, but continues to have left heel pain limiting his ambulation. He mentioned this to the internal medicine team who reached out to us to check for any underlying pathology. Allergies Allergy/AdvReac Type Severity Reaction Status Date / Time No Known Allergies Allergy Verified 06/05/23 13:38 Home Medications Medication Instructions Recorded Confirmed Type metoprolol succinate 25 mg 12.5 mg (1/2 x 25 mg) PO DAILY #45 09/07/22 08/02/23 Rx tablet,extended release 24 hr tabs losartan 25 mg tablet 25 mg PO DAILY #90 tabs 09/27/22 08/02/23 Rx tafamidis meglumine 20 mg capsule 20 mg PO DAILY 02/24/23 08/02/23 History (Vyndaqel) torsemide 10 mg tablet 50 mg PO UD 06/05/23 08/02/23 History acetaminophen 325 mg capsule 325 mg PO QID PRN Pain 07/14/23 08/02/23 History (Tylenol) methocarbamol 500 mg tablet 500 mg PO TID #90 tabs 07/14/23 08/02/23 Rx apixaban 5 mg tablet (Eliquis) 5 mg PO BID #180 tabs 07/20/23 08/02/23 Rx gabapentin 300 mg capsule 300 mg PO BID #60 caps 07/24/23 08/02/23 Rx spironolactone 25 mg tablet 25 mg PO UD 08/02/23 08/02/23 History Patient History Medical History Pilonidal cyst Social History Smoking Status: Never smoker Hx Alcohol Use: Yes Alcohol type: wine Hx Substance Use: No Preferred Language: Sudanese Communication Ability: Effective Visual Impairment: No Limitations Clin Nurse Spec Required: No Beliefs That Will Affect Care: None marital status: Current Living Situation: Spouse How many Children do You have: 2 Feels Safe at Home: Yes Safety Concerns: Feels Safe At This Time Assistive Devices: None Review of Systems Review of Systems: All systems reviewed & are unremarkable except as noted in HPI & below Constitutional: no fever and no chills Eyes: no problem reported Ear, Nose, Mouth, Throat: no problem reported Respiratory: no problem reported Cardiovascular: no problem reported Gastrointestinal: no problem reported Genitourinary: no problem reported Musculoskeletal: Heel pain Integumentary: + new lesions (Left heel blistering, not ed by Dr. Parks initially) and + problem reported Neurologic: + gait abnormality Psychiatric: no problem reported Physical Exam Constitutional: WD/WN, vitals as above well developed, well nourished and + ill appearing; no acute distress Eyes: PERRL, conjunctivae normal, anicteric sclerae ENMT: external ear and nose normal, oropharynx normal Neck: trachea midline, no thyromegaly Respiratory: normal respiratory effort; no respiratory distress Cardiovascular: Rate/Rhythm: regular rate and regular rhythm Vessels: posterior tibial pulses present (diminished 2/2 pedal edema) and dorsalis pedis pulses present (diminished 2/2 pedal edema) Extremities: normal capillary refill and + pedal edema Chest (Breasts): Chest: normal inspection of chest Gastrointestinal (Abdomen): Inspection/Auscultation: abdomen normal to inspection Musculoskeletal: Head/Neck/Chest: normocephalic and head atraumatic Extremities: + limited ROM of extremities and + foot abnormality (Fluid filled blister to plantar left heel) Gait: + antalgic gait Skin: + lesion, + wound (distal right 3rd toe) , + skin atrophy, + erythema and + nails dystrophic Trauma: no evidence of skin trauma (No specific puncture wound/portal of entry) Neurologic: moves all extremities and awake; + abnormal sensation to monofilament and no focal motor deficits Psychiatric: A+Ox3, euthymic affect Results & Data Vital Signs (Past 12 Hours) Vital Signs Temp Pulse Pulse Resp BP BP Pulse Ox 08/08/23 16:00 60 08/08/23 15:41 36.4 C L 62 17 122/79 99 08/08/23 12:00 60 18 99 08/08/23 12:00 113/73 08/08/23 12:00 36.8 C 08/08/23 10:32 64 17 98 08/08/23 10:32 111/71 08/08/23 10:00 61 19 98 08/08/23 08:00 60 20 98 08/08/23 08:00 36.8 C 62 20 98 08/08/23 08:00 08/08/23 07:00 66 16 08/08/23 06:00 60 14 98 08/08/23 05:00 62 14 99 O2 Del Method 08/08/23 16:00 08/08/23 15:41 Room Air 08/08/23 12:00 08/08/23 12:00 08/08/23 12:00 08/08/23 10:32 08/08/23 10:32 08/08/23 10:00 08/08/23 08:00 08/08/23 08:00 Room Air 08/08/23 08:00 Room Air 08/08/23 07:00 08/08/23 06:00 08/08/23 05:00 Diagnostic Findings MRI Pending; Plain film imaging was noted to be normal in the area of focus. No soft tissue gas. No bony erosions/suggestions of osteomyelitis
[2023-08-08 17:47] LABS: Q Fever IgG, Phase I NEGATIVE; Q Fever Phase I IgM Antibody NEGATIVE; Q Fever Phase II IgG Antibody NEGATIVE; Q Fever Phase II IgM Antibody NEGATIVE; R. typhi IgG Ab NOT DETECTED; R. typhi IgM Ab NOT DETECTED; RMSF IgG Ab NOT DETECTED; RMSF IgM Ab NOT DETECTED
--- NOTE | 2023-08-08 19:16 | Hospitalist Progress Note ---
Date of Service August 08, 2023 Assessment & Plan (1) Shock: Plan: Suspected septic shock secondary to MSSA bacteremia source skin, now may be heel abscess that was noted on 08/08/2023, in the context of amyloid cardiomyopathy 1 of 4 blood cultures are positive with MSSA, ID recommneds 6 weeks treatment from first negative blood cx LD 09/13/23 weekly cbc cmp followed by pcp Podiatry evaluate the patient 4 OR on 08/09/2023 for I&D. Podiatry request MRI prior to which need to be coordinated with pacemaker manipulation ordered for the morning of 08/09/23 Paracentesis / ascitic culture negative to date CTchest with moderate pulmonary edema no defined infiltrates or commented upon CTA/P is with large volume ascites, Previous history of cholecystectomy -MRI of spine does not suggest epidural abscess but does note L1 compression fracture and L3-4 spinal stenosis -Tickborne illness/infection studies are negative Infectious disease consultation treating for staph bacteremia. MSSA confirmed de-escalate to Ancef 08/04/23 PICC placed as subsequent cx negative Patient remains on blood pressure support phenylephrine and additional po midodrine, dose reduced to 7.5 3 times daily in the evening of 08/08/2023 Except apixaban held missing the evening dose on 08/08/2023 (2) Cardiac amyloidosis: Plan: Cardiac amyloidosis typically managed at [facility]. Repeat echocardiogram shows EF approximately 40-45%, similar to March heart failure with midrange ejection fraction Acute on chronic mid range CHF Dual-chamber pacemaker in place for heart block EKG is ventricular paced rhythm. Troponin is elevated from demand ischemia do not suspect acute coronary syndrome Tafamidis continued Cardiology is consulted. cxr of 08/03 continues with pulmonary edema. ckd 3 diuresis on 08/04 and pt currently requires midodrine to support blood pressure, will try to taper and resume Guideline based meds for HF (3) Atrial fibrillation, permanent: Plan: History of A-fib/a flutter, history of heart block s/p pacer Anticoagulation apixaban 5mg bid on hold for surgery eating dose on 08/08/2023 held Metoprolol held for hypotension Paced rhythm on EKG, concern of staph bacteremia with implanted devices (4) Central sleep apnea: Plan: CPAP nightly Plan DVT prophylaxis: Anticoagulated with Eliquis now currently on hold noting concern for T2 lesion that is undefined, will need CT follow up Patient also encouraged to have Ortega removed but has been reluctant at this point time PT/OT with concerns for going home but improving Admission and Anticipated Discharge Date Admission Date: August 02, 2023 Subjective Patient is "complaint revolves around his left heel. This limits his ambulation and thus patient reluctant to take out his Ortega. Inspection of his left heel seems to reveal a small abscess on the plantar aspect. This is central on his heel. This is the point of his severe pain. Evaluation by podiatry suggest the possibility of an OR case to drain the abscess but they wish for an MRI prior to. This may be the nidus of his original infection. Patient is aware of this plan Physical Exam Physical Exam: Patient is awake he is oriented x 3 Cardiac exam is regular no murmurs, remains without peripheral stigmata of endocarditis Abdomen dull no focal tenderness, shifting dullness cw ascites Extremities are with changes of chronic venous stasis bruising and skin discoloration, 1+ edema Left heel has a dime sized discolored area centrally on his plantar heel which is extremely tender to examination Results & Data Results & Data Vital Signs (Past 12 Hours) Vital Signs Temp Pulse Pulse Resp BP BP Pulse Ox 08/08/23 16:00 60 08/08/23 15:41 97.5 F L 62 17 122/79 99 08/08/23 12:00 60 18 99 08/08/23 12:00 113/73 08/08/23 12:00 98.2 F 08/08/23 10:32 64 17 98 08/08/23 10:32 111/71 08/08/23 10:00 61 19 98 08/08/23 08:00 60 20 98 08/08/23 08:00 98.2 F 62 20 98 08/08/23 08:00 O2 Del Method 08/08/23 16:00 08/08/23 15:41 Room Air 08/08/23 12:00 08/08/23 12:00 08/08/23 12:00 08/08/23 10:32 08/08/23 10:32 08/08/23 10:00 08/08/23 08:00 08/08/23 08:00 Room Air 08/08/23 08:00 Room Air Laboratory Results Reviewed CBC reviewed chemistry Personally discussed case with podiatry PG Care Time/CCT Total # of Minutes Spent Total Time Spent with Patient: Total time spent is greater than 50% in coordination of care (as documented) at patient's floor/unit and/or counseling patient: Coding Level of Care Code 19339 SUB INP/OBS CARE 3/50MIN Diagnoses Shock R57.9 Cardiac amyloidosis E85.4; I43 Atrial fibrillation, permanent I48.21 Central sleep apnea G47.31
--- NOTE | 2023-08-08 19:38 | Hospitalist Progress Note ---
Date of Service August 08, 2023 Assessment & Plan (1) Shock: Plan: Suspected septic shock secondary to MSSA bacteremia source skin, now may be heel abscess that was noted on 08/08/2023, in the context of amyloid cardiomyopathy 1 of 4 blood cultures are positive with MSSA, ID recommneds 6 weeks treatment from first negative blood cx LD 09/13/23 weekly cbc cmp followed by pcp Podiatry evaluate the patient 4 OR on 08/09/2023 for I&D. Podiatry request MRI prior to which need to be coordinated with pacemaker manipulation ordered for the morning of 08/09/23 Paracentesis / ascitic culture negative to date CTchest with moderate pulmonary edema no defined infiltrates or commented upon CTA/P is with large volume ascites, Previous history of cholecystectomy -MRI of spine does not suggest epidural abscess but does note L1 compression fracture and L3-4 spinal stenosis -Tickborne illness/infection studies are negative Infectious disease consultation treating for staph bacteremia. MSSA confirmed de-escalate to Ancef 08/04/23 PICC placed as subsequent cx negative Patient remains on blood pressure support phenylephrine and additional po midodrine, dose reduced to 7.5 3 times daily in the evening of 08/08/2023 Except apixaban held missing the evening dose on 08/08/2023 (2) Cardiac amyloidosis: Plan: Cardiac amyloidosis typically managed at [facility]. Repeat echocardiogram shows EF approximately 40-45%, similar to March heart failure with midrange ejection fraction Acute on chronic mid range CHF Dual-chamber pacemaker in place for heart block EKG is ventricular paced rhythm. Troponin is elevated from demand ischemia do not suspect acute coronary syndrome Tafamidis continued Cardiology is consulted. cxr of 08/03 continues with pulmonary edema. ckd 3 diuresis on 08/04 and pt currently requires midodrine to support blood pressure, will try to taper and resume Guideline based meds for HF (3) Atrial fibrillation, permanent: Plan: History of A-fib/a flutter, history of heart block s/p pacer Anticoagulation apixaban 5mg bid on hold for surgery eating dose on 08/08/2023 held Metoprolol held for hypotension Paced rhythm on EKG, concern of staph bacteremia with implanted devices (4) Central sleep apnea: Plan: CPAP nightly Plan DVT prophylaxis: Anticoagulated with Eliquis now currently on hold noting concern for T2 lesion that is undefined, will need CT follow up Patient also encouraged to have Ortega removed but has been reluctant at this point time Pressure ulcer of sacral region, stage 2, POA PT/OT with concerns for going home but improving Admission and Anticipated Discharge Date Admission Date: August 02, 2023 Results & Data Results & Data Vital Signs (Past 12 Hours) Vital Signs Temp Pulse Pulse Resp BP BP Pulse Ox 08/08/23 16:00 60 08/08/23 15:41 97.5 F L 62 17 122/79 99 08/08/23 12:00 60 18 99 08/08/23 12:00 113/73 08/08/23 12:00 98.2 F 08/08/23 10:32 64 17 98 08/08/23 10:32 111/71 08/08/23 10:00 61 19 98 08/08/23 08:00 60 20 98 08/08/23 08:00 98.2 F 62 20 98 08/08/23 08:00 O2 Del Method 08/08/23 16:00 08/08/23 15:41 Room Air 08/08/23 12:00 08/08/23 12:00 08/08/23 12:00 08/08/23 10:32 08/08/23 10:32 08/08/23 10:00 08/08/23 08:00 08/08/23 08:00 Room Air 08/08/23 08:00 Room Air PG Care Time/CCT Total # of Minutes Spent Total Time Spent with Patient: Total time spent is greater than 50% in coordination of care (as documented) at patient's floor/unit and/or counseling patient: Coding Level of Care Code None Diagnoses Shock R57.9 Cardiac amyloidosis E85.4; I43 Atrial fibrillation, permanent I48.21 Central sleep apnea G47.31
[2023-08-09 06:13] LABS: Basophils # (auto) 0.03 K/uL (0.00-0.20); Basophils % (auto) 0.3 %; Eosinophils # (auto) 0.13 K/uL (0.00-0.50); Eosinophils % (auto) 1.5 %; Hematocrit (blood only) 25.7 % (42.0-52.0); Hemoglobin 8.7 g/dl (14.0-18.0); Immature Granulocytes # (auto) 0.08 K/uL (0.01-0.20); Immature Granulocytes % (auto) 0.9 %; Lymphocytes # (auto) 0.69 K/uL (1.20-3.40); Mean Corpuscular Hemoglobin 33.6 pg (25.0-34.0); Mean Corpuscular Hgb Conc 33.9 g/dL (32.0-36.0); Mean Corpuscular Volume 99.2 fL (80.0-100.0); Mean Platelet Volume 9.6 fL (9.4-12.4); Monocytes # (auto) 0.49 K/uL (0.11-0.59); Monocytes % (auto) 5.7 %; Neutrophils # (auto) 7.24 K/uL (1.40-6.50); Neutrophils % (auto) 83.6 %; Platelet Count 241 K/uL (130-400); RDW Coefficient of Variation 14.9 % (11.5-14.5); RDW Standard Deviation 53.9 fL (36.4-46.3); Red Blood Count 2.59 M/uL (4.70-6.10); White Blood Count 8.66 K/ul (4.8-10.8)
[2023-08-09 06:23] LABS: Anion Gap 7 (3-11); BUN Creatinine Ratio 40.3 (10-20); Blood Urea Nitrogen 31 mg/dl (6-23); Calcium 8.7 mg/dl (8.6-10.3); Carbon Dioxide 20 mmol/L (21-32); Chloride 109 mmol/L (98-107); Creatinine Clr Calc Pharmacy 86.5 ml/min; Est GFR (African American) 99.3 ml/min; Est GFR (Non-African American) 85.7 ml/min; Glucose 87 mg/dl (70-99(Fasting)); Potassium 3.9 mmol/L (3.5-5.1); Sodium 136 mmol/L (136-145)
[2023-08-09 06:34] LABS: Alanine Aminotransferase < 3 U/L (7-52); Albumin Level 3.2 gm/dl (3.4-5.0); Alkaline Phosphatase 215 U/L (34-104); Aspartate Aminotransferase 16 U/L (13-39); Bilirubin,Total 1.4 mg/dl (0.2-1.0); Globulin 3.2 gm/dl (2.5-4.0); Total Protein 6.4 gm/dl (6.0-8.3)
[2023-08-09] MEDS: MIDODRINE HCL 2.5 MG TAB PO SCH (07:56)
[2023-08-09] MEDS: LACTATED RINGER'S 1,000 ML IV SCH (16:04)
--- NOTE | 2023-08-09 16:41 | Anesthesiology Consultation ---
Date of Service August 09, 2023 Assessment & Plan (1) Encounter for pre-operative examination: Chart Review Chart Review: Acceptable Risk for Surgery History Surgery Operation Date: 08/09/23 15:25 Proposed Procedures p Left Heel Incision and Drainage - Danelle Brown DPM Height/Weight Height: 6 ft 1 in Weight: 86.2 kg Allergies Allergy/AdvReac Type Severity Reaction Status Date / Time No Known Allergies Allergy Verified 06/05/23 13:38 Medications Home Medications Medication Instructions Recorded Confirmed Last Taken metoprolol succinate 25 mg 12.5 mg (1/2 x 25 mg) PO DAILY #45 09/07/22 08/02/23 Unknown tablet,extended release 24 hr tabs losartan 25 mg tablet 25 mg PO DAILY #90 tabs 09/27/22 08/02/23 Unknown tafamidis meglumine 20 mg capsule 20 mg PO DAILY 02/24/23 08/02/23 Unknown (Vyndaqel) torsemide 10 mg tablet 50 mg PO UD 06/05/23 08/02/23 Unknown acetaminophen 325 mg capsule 325 mg PO QID PRN Pain 07/14/23 08/02/23 Unknown (Tylenol) methocarbamol 500 mg tablet 500 mg PO TID #90 tabs 07/14/23 08/02/23 Unknown apixaban 5 mg tablet (Eliquis) 5 mg PO BID #180 tabs 07/20/23 08/02/23 Unknown gabapentin 300 mg capsule 300 mg PO BID #60 caps 07/24/23 08/02/23 Unknown spironolactone 25 mg tablet 25 mg PO UD 08/02/23 08/02/23 Unknown Active Medications Generic Name Dose Route Start Last Admin Trade Name Freq PRN Reason Stop Dose Admin Acetaminophen 650 mg 08/02/23 18:14 08/08/23 21:29 Acetaminophen 325 Mg Tab PO 09/01/23 18:13 650 mg Q4H PRN Administration Pain or Fever Apixaban 5 mg 08/04/23 09:00 08/08/23 08:04 Apixaban 5 Mg Tablet PO 09/03/23 08:59 5 mg BID EDUARDO Administration Cefazolin Sodium 2,000 mg in 15 mls @ 3.75 mls/min 08/04/23 09:00 08/09/23 07:55 Ancef 2000mg IV 09/14/23 08:59 3.75 mls/min Q8H EDUARDO Administration Lactated Ringer's 1,000 mls @ 80 mls/hr 08/09/23 15:45 08/09/23 16:04 Lr IV 08/10/23 04:14 80 mls/hr .[id number] EDUARDO Administration Midodrine 7.5 mg 08/09/23 08:00 08/09/23 14:12 Midodrine Hcl 2.5 Mg Tab PO 09/08/23 07:59 7.5 mg TID@0800,1200,1700 EDUARDO Administration Oxybutynin Chloride 5 mg 08/04/23 22:00 08/09/23 15:09 Oxybutynin Chloride 5 Mg Tab PO 09/03/23 21:59 5 mg Q8H EDUARDO Administration Tafamidis Meglumine 20 mg 08/03/23 21:00 08/08/23 21:27 Tafamidis Meglumine 20 Mg Cap PO 09/02/23 20:59 20 mg HS EDUARDO Administration Past Medical History Medical History (Updated 08/09/23 @ 16:41 by August Medrano MD) Anemia Sepsis FILI (acute kidney injury) Compression fracture of body of thoracic vertebra Heart failure with mid-range ejection fraction Gait disturbance Cardiac amyloidosis Atrial fibrillation, permanent Central sleep apnea Pilonidal cyst Past Surgical History Surgical History (Updated 08/09/23 @ 16:38 by August Medrano MD) S/P placement of cardiac pacemaker Hx laparoscopic cholecystectomy (03/11/21) Laparoscopic cholecystectomy with intraoperative cholangiogram Dr. Nunez 03-11-2021 Social History Smoking Status: Never smoker Hx Alcohol Use: Yes Alcohol type: wine alcohol intake frequency: a few times a week Hx Substance Use: No substance use type: does not use Physical Exam Vital Signs Last Vital Signs Temp 36.6 C 08/09/23 15:01 Pulse 65 08/09/23 15:01 Resp 18 08/09/23 15:01 BP 124/85 08/09/23 15:01 Pulse Ox 98 08/09/23 15:01 O2 Del Method Room Air 08/09/23 15:01 O2 Flow Rate 2 08/04/23 07:55 Testing Laboratory Results 08/09/23 05:35 08/09/23 05:35 PT 14.6 Seconds (9.0-12.0) H 08/02/23 13:02 INR 1.4 (0.9-1.1) H 08/02/23 13:02 APTT 33 Seconds (21-31) H 08/02/23 16:09 Urine Color Yellow 08/02/23 15:22 Urine Appearance Turbid (Clear) A 08/02/23 15:22 Urine pH 5.0 (4.5-7.5) 08/02/23 15:22 Ur Specific Matthews 1.015 (1.000-1.030) 08/02/23 15:22 Urine Protein Trace (Negative) H 08/02/23 15:22 Urine Glucose (UA) Negative (Negative) 08/02/23 15: Urine Ketones Negative (Negative) 08/02/23 15: Urine Nitrite Negative (Negative) 08/02/23 15:22 Ur Leukocyte Esterase 1+ (Negative) H 08/02/23 15:22 Urine WBC (Auto) 0-5 /hpf (0-5) 08/02/23 15:22 Urine RBC (Auto) >20 /hpf (0-2) H 08/02/23 15:22 U Hyaline Cast (Auto) 0-2 /lpf (0-2) 08/02/23 15:22 U Epithel Cells (Auto) 0-2 /hpf (0-2) 08/02/23 15:22 Urine Bacteria (Auto) None Seen (None Seen) 08/02/23 15:22 08/02/23 16:09 Aerobic Blood Culture - Final Blood No growth in Aerobic bottle after 5 days. Anaerobic Blood Culture - Final Staphylococcus aureus 08/03/23 10:02 Aerobic Blood Culture - Final Blood No growth in Aerobic bottle after 5 days. Anaerobic Blood Culture - Final No growth in Anaerobic bottle after 5 days. 08/03/23 09:56 Aerobic Blood Culture - Final Blood No growth in Aerobic bottle after 5 days. Anaerobic Blood Culture - Final No growth in Anaerobic bottle after 5 days. 08/03/23 Unknown Gram Stain - Final Peritoneal Fluid Aerobic and Anaerobic Culture - Final No growth 08/02/23 16:06 Aerobic Blood Culture - Final Blood No growth in Aerobic bottle after 5 days. Anaerobic Blood Culture - Final 08/03/23 09:29 Urine Culture - Final Urine,Clean Catch No growth - less than 1,000 colonies/mL. Electrocardiogram Date: 08/02/23 paced - V rate 77 Echocardiogram Date: 08/02/23 EF: 45-50% Valvular Disease: + MR (mild) mild pulm htn
[2023-08-09] MEDS ORDERED: LIDOCAINE 2% 2 ML VIAL/AMP(20MG/ML) INFIL ONE (16:58)
[2023-08-09] MEDS ORDERED: ONDANSETRON INJ 2 MG/ML 2 ML VIAL ONE (16:58)
[2023-08-09] MEDS ORDERED: fentaNYL citrate PF 100 MCG/2 ML VIAL ONE (16:58)
[2023-08-09] MEDS ORDERED: PROPOFOL IV EMULSION 10 MG/ML 20 ML VIAL IV ONE (16:58)
--- NOTE | 2023-08-09 17:06 | Hospitalist Progress Note ---
Date of Service August 09, 2023 Assessment & Plan (1) Shock: Plan: Suspected septic shock secondary to MSSA bacteremia source possibly heel abscess that was noted on 08/08/2023, in the context of amyloid cardiomyopathy 1 of 4 blood cultures are positive with MSSA, ID recommends 6 weeks treatment from first negative blood cx LD 09/13/23 weekly cbc cmp followed by pcp Podiatry consulted, recommended MRI - delayed because he has pacemaker, was being done midday today but MRI became broken during his scan. Discussed with Dr. Brown - will proceed with I&D this afternoon Paracentesis / ascitic culture negative to date CTchest with moderate pulmonary edema no defined infiltrates or commented upon CTA/P is with large volume ascites, Previous history of cholecystectomy -MRI of spine does not suggest epidural abscess but does note L1 compression fracture and L3-4 spinal stenosis -Tickborne illness/infection studies are negative Infectious disease consultation treating for staph bacteremia. MSSA confirmed de-escalated to Ancef 08/04/23 PICC placed as subsequent cx negative Patient remains on blood pressure support phenylephrine and additional po midodrine, dose reduced to 7.5 3 times daily in the evening of 08/08/2023 - tolerating well with mostly normal BP today, taper further postop apixaban held currently (2) Cardiac amyloidosis: Plan: Cardiac amyloidosis typically managed at [facility]. Repeat echocardiogram shows EF approximately 40-45%, similar to March heart failure with midrange ejection fraction Acute on chronic mid range CHF Dual-chamber pacemaker in place for heart block EKG is ventricular paced rhythm. Troponin is elevated from demand ischemia do not suspect acute coronary syndrome Tafamidis continued Cardiology is consulted. cxr of 08/03 continues with pulmonary edema. ckd 3 diuresis on 08/04 and pt currently requires midodrine to support blood pressure, will try to taper and resume Guideline based meds for HF - no change to meds today, preop (3) Atrial fibrillation, permanent: Plan: History of A-fib/a flutter, history of heart block s/p pacer Anticoagulation apixaban 5mg bid on hold for surgery evening dose on 08/08/2023 held Metoprolol held for hypotension Paced rhythm on EKG, concern of staph bacteremia with implanted devices - longer duration of treatment planned (4) Central sleep apnea: Plan: CPAP nightly Plan DVT prophylaxis: Anticoagulated with Eliquis now currently on hold noting concern for T2 lesion that is undefined, will need CT follow up Patient also encouraged to have Ortega removed but has been reluctant at this point time - address postop Pressure ulcer of sacral region, stage 2, POA PT/OT with concerns for going home but improving Admission and Anticipated Discharge Date Admission Date: August 02, 2023 Subjective L heel unchanged, only painful with ambulation, can't recall any injury or skin break. Both heels were hurting for a few weeks but the R heel pain resolved No dyspnea, CP Physical Exam 2 Physical Exam: PHYSICAL EXAMINATION Last 24h vital signs reviewed, see documentation in flowsheet General: comfortable appearing, no distress, reclining in bed HEENT: Normocephalic, atraumatic, pupils round and equal, sclerae anicteric, no conjunctival injection, moist mucus membranes Lungs: Normal respiratory effort. Clear to auscultation bilaterally. No RRW Heart: Regular rate and rhythm, no murmurs. No JVD Abdomen: nondistended Extremities: Warm, dry, well-perfused. No extremity edema. L heel with 1.5 cm central heel lesion, no erythema or drainage Neuro: Alert and oriented x 4, face symmetric, moves 4 extremities well Psych: Normal affect and behavior Results & Data Results & Data Vital Signs (Past 12 Hours) Vital Signs Temp Pulse Pulse Resp BP Pulse Ox O2 Del Method 08/09/23 16:41 36.7 C 65 17 126/84 99 Room Air 08/09/23 16:00 62 08/09/23 15:01 36.6 C 65 18 124/85 98 Room Air 08/09/23 10:36 36.6 C 63 18 112/78 99 Room Air 08/09/23 08:00 73 08/09/23 08:00 Room Air 08/09/23 07:47 36.6 C 85 17 111/72 94 Room Air Laboratory Results 08/09/23 05:35 08/09/23 05:35 PG Care Time/CCT Total # of Minutes Spent Total Time Spent with Patient: Total time spent is greater than 50% in coordination of care (as documented) at patient's floor/unit and/or counseling patient: Coding Level of Care Code 86898 SUB INP/OBS CARE 2/35MIN Diagnoses Shock R57.9 Cardiac amyloidosis E85.4; I43 Atrial fibrillation, permanent I48.21 Central sleep apnea G47.31
--- NOTE | 2023-08-09 17:11 | History & Physical Bridge Note ---
Date of Service August 09, 2023 History & Physical Bridge Note I have examined the patient, reviewed the History & Physical and in the interval since the performance of the History & Physical I have noted the following changes of clinical significance: no changes noted
[2023-08-09] MEDS ORDERED: ceFAZolin 330 MG/ML 1 GM VIAL ONE (17:32)
[2023-08-09] MEDS: BUPIVACAINE 0.25% PF 30 ML VIAL ONE (18:02)
--- NOTE | 2023-08-09 18:20 | Post Operative Brief Note ---
Immediate Post Op Note v1 Date of Surgery August 09, 2023 Pre & Post Diagnosis Operation Date: 08/09/23 15:25 Pre-Op Diagnosis: Left heel abscess Post-Op Diagnosis: Left heel abscess I identified the patient and participated in the time-out.: Yes Procedure Operation Date: 08/09/23 15:25 Actual Procedures p Left Heel Incision and Drainage(Left) - Danelle Brown DPM Surgeon Danelle Brown DPM Gold Marker none Estimated Blood Loss 10 Findings Consistent with Post-Op Diagnosis Specimens swab culture left heel (A) swab culture left heel (B) left heel tissue sent for aerobic, anaerobic with gram stain Drains Ortega Catheter Anesthesia Type MAC Complications none Disposition Accompanied Patient To Recovery: Yes
[2023-08-09] MEDS: fentaNYL citrate PF 100 MCG/2 ML VIAL IV PRN (18:38)
[2023-08-09] MEDS ORDERED: ONDANSETRON INJ 2 MG/ML 2 ML VIAL IV PRN (18:39)
[2023-08-09] MEDS ORDERED: ATROPINE SULFATE 0.1 MG/ML 10ML SYR IV PRN (18:39)
--- NOTE | 2023-08-09 18:50 | Anesthesiology Progress Note ---
Date of Service August 09, 2023 Anesthesia Post Procedure Vital Signs Vital Signs: Temp Pulse Pulse Resp BP Pulse Ox O2 Del Method 08/09/23 18:40 60 14 111/81 92 Room Air 08/09/23 18:30 60 15 121/86 100 Room Air 08/09/23 18:20 60 14 122/84 98 Room Air 08/09/23 18:13 37.1 C 61 13 111/75 100 Oxymask 08/09/23 16:41 36.7 C 65 17 126/84 99 Room Air 08/09/23 16:00 62 08/09/23 15:01 36.6 C 65 18 124/85 98 Room Air 08/09/23 10:36 36.6 C 63 18 112/78 99 Room Air 08/09/23 08:00 73 08/09/23 08:00 Room Air 08/09/23 07:47 36.6 C 85 17 111/72 94 Room Air 08/09/23 03:56 36.8 C 68 18 89/66 L 99 Room Air 08/09/23 00:30 36.8 C 65 16 111/76 95 Room Air 08/08/23 22:00 62 08/08/23 20:00 Room Air 08/08/23 19:45 36.6 C 60 16 122/76 99 Room Air O2 Flow Rate 08/09/23 18:40 08/09/23 18:30 08/09/23 18:20 08/09/23 18:13 5 08/09/23 16:41 08/09/23 16:00 08/09/23 15:01 08/09/23 10:36 08/09/23 08:00 08/09/23 08:00 08/09/23 07:47 08/09/23 03:56 08/09/23 00:30 08/08/23 22:00 08/08/23 20:00 08/08/23 19:45 Pain Intensity Back: Pain Intensity: 3 Bilateral Heel: Pain Intensity: 7 Left Heel: Pain Intensity: 6 Transfer of Care Handoff Completed per policy Notes Mental Status: alert / awake / arousable Patient Amnestic to Procedure: Yes Nausea / Vomiting: adequately controlled Pain: adequately controlled Airway Patency, RR, SpO2: stable & adequate BP & HR: stable & adequate Hydration State: stable & adequate Anesthetic Complications: no major complications apparent
[2023-08-10] MEDS: SODIUM CHLORIDE 0.9% 500 ML IV SCH (01:32)
[2023-08-10 06:21] LABS: Basophils # (auto) 0.02 K/uL (0.00-0.20); Basophils % (auto) 0.2 %; Eosinophils # (auto) 0.05 K/uL (0.00-0.50); Eosinophils % (auto) 0.5 %; Hematocrit (blood only) 26.7 % (42.0-52.0); Hemoglobin 8.8 g/dl (14.0-18.0); Immature Granulocytes # (auto) 0.09 K/uL (0.01-0.20); Immature Granulocytes % (auto) 0.9 %; Lymphocytes # (auto) 0.68 K/uL (1.20-3.40); Lymphocytes % (auto) 6.6 %; Mean Corpuscular Hemoglobin 33.2 pg (25.0-34.0); Mean Corpuscular Volume 100.8 fL (80.0-100.0); Mean Platelet Volume 9.5 fL (9.4-12.4); Monocytes # (auto) 0.51 K/uL (0.11-0.59); Monocytes % (auto) 4.9 %; Neutrophils % (auto) 86.9 %; Platelet Count 262 K/uL (130-400); RDW Coefficient of Variation 15.2 % (11.5-14.5); RDW Standard Deviation 56.1 fL (36.4-46.3); Red Blood Count 2.65 M/uL (4.70-6.10); White Blood Count 10.35 K/ul (4.8-10.8)
[2023-08-10 06:45] LABS: Anion Gap 6 (3-11); BUN Creatinine Ratio 39.5 (10-20); Blood Urea Nitrogen 32 mg/dl (6-23); Calcium 8.6 mg/dl (8.6-10.3); Carbon Dioxide 23 mmol/L (21-32); Chloride 108 mmol/L (98-107); Creatinine Clr Calc Pharmacy 82.2 ml/min; Est GFR (African American) 97.3 ml/min; Est GFR (Non-African American) 83.9 ml/min; Glucose 96 mg/dl (70-99(Fasting)); Potassium 4.3 mmol/L (3.5-5.1); Sodium 137 mmol/L (136-145)
[2023-08-10 06:47] LABS: Alanine Aminotransferase < 3 U/L (7-52); Albumin Level 3.2 gm/dl (3.4-5.0); Alkaline Phosphatase 216 U/L (34-104); Aspartate Aminotransferase 15 U/L (13-39); Bilirubin,Total 1.5 mg/dl (0.2-1.0); Globulin 3.1 gm/dl (2.5-4.0); Total Protein 6.3 gm/dl (6.0-8.3)
--- NOTE | 2023-08-10 07:32 | Hospitalist Progress Note ---
Date of Service August 10, 2023 Assessment & Plan (1) Shock: Plan: Septic shock secondary to MSSA bacteremia had multiple skin sources including heel abscess that was noted on 08/08/2023, in the context of amyloid cardiomyopathy 1 of 4 blood cultures are positive with MSSA, ID recommends 6 weeks treatment from first negative blood cx LD 09/13/23 weekly cbc cmp followed by pcp I&D of L heel abscess 08/[address] Brown - gram stain with GPC's, culture pending. MRI ankle 08/09 reviewed - no evidence of osteomyelitis, chronic plantar fasciitis and chronic peroneus brevis tear other infectious workup: CTchest with moderate pulmonary edema no defined infiltrates or commented upon CTA/P is with large volume ascites, Previous history of cholecystectomy. Paracentesis / ascitic culture negative to date, cytology pending -MRI of T/L spine does not suggest infectious process but has other abnormalities, see below -Tickborne illness/infection studies are negative Infectious disease consultation treating for staph bacteremia. 6 weeks IV cefazolin planned. PICC placed. BP low normal overnight, decreased midodrine from 7.5-->2.5 tid (2) Cardiac amyloidosis: Plan: Cardiac amyloidosis typically managed at [facility]. Repeat echocardiogram shows EF approximately 40-45%, similar to March heart failure with midrange ejection fraction Acute on chronic mid range CHF Dual-chamber pacemaker in place for heart block EKG is ventricular paced rhythm. Troponin is elevated from demand ischemia do not suspect acute coronary syndrome Tafamidis continued Cardiology is consulted. cxr of 08/03 continues with pulmonary edema. diuresis on 08/04 and pt currently requires midodrine to support blood pressure, taper and resume Guideline based meds for HF when tolerated (3) Atrial fibrillation, permanent: Plan: History of A-fib/a flutter, history of heart block s/p pacer Anticoagulation apixaban 5mg bid Metoprolol held for hypotension Paced rhythm on EKG, concern of staph bacteremia with implanted devices - longer duration of treatment planned (4) Central sleep apnea: Plan: CPAP nightly Plan DVT prophylaxis: Anticoagulated with apixaban noting concern for L T2 pedicle lesion that is undefined, potential for bony metastatic disease, discussed with Dr. Sawant who had already reviewed with radiologist - may be hemangioma, follow up imaging planned when other fractures healed acute or subacute T12, L1 osteoporotic compression fractures, severe spinal stenosis at L3-4, mod at L2-3 & L4-5, multilevel lateral recess and foraminal stenosis -check vitamin D level - pending -ordered 24h urine calcium to check for hypercalciuria per Dr. Schafer's recommendation ascites cytology resulted negative CKD-2 Cr at baseline today Pressure ulcer of sacral region, stage 2, POA - continue wound care, pressure offloading PT/OT with concerns for going home, recommended rehab stay. reassess now that heel abscess drained. Admission and Anticipated Discharge Date Admission Date: August 02, 2023 Subjective L heel pain improved post I&D. Willing to try dc whitman catheter today. Working on increased mobility. No CP or dyspnea. Physical Exam 2 Physical Exam: PHYSICAL EXAMINATION Last 24h vital signs reviewed, see documentation in flowsheet General: sitting up in bed HEENT: Normocephalic, atraumatic, pupils round and equal, sclerae anicteric, no conjunctival injection, moist mucus membranes Lungs: Normal respiratory effort. Clear to auscultation bilaterally. No RRW Heart: Regular rate and rhythm, no murmurs. No JVD Abdomen: mild ascites Extremities: Warm, dry, well-perfused. No extremity edema. L foot dressed in surgical dressing, mark wrap Neuro: Alert and oriented x 4, face symmetric, moves 4 extremities well Psych: Normal affect and behavior Results & Data Results & Data Vital Signs (Past 12 Hours) Vital Signs Temp Pulse Pulse Resp BP Pulse Ox O2 Del Method 08/10/23 02:43 36.6 C 60 18 106/75 100 Room Air 08/09/23 23:04 36.5 C 65 18 104/75 100 Nasal Cannula 08/09/23 22:12 60 08/09/23 21:45 61 16 129/86 100 Nasal Cannula 08/09/23 20:45 60 14 124/90 100 Nasal Cannula 08/09/23 20:15 60 14 124/86 100 Nasal Cannula 08/09/23 19:45 60 16 127/91 100 Nasal Cannula O2 Flow Rate 08/10/23 02:43 08/09/23 23:04 2 08/09/23 22:12 08/09/23 21:45 08/09/23 20:45 2 08/09/23 20:15 2 08/09/23 19:45 2 Laboratory Results 08/10/23 05:31 05/16/24 05:31 PG Care Time/CCT Total # of Minutes Spent Total Time Spent with Patient: Total time spent is greater than 50% in coordination of care (as documented) at patient's floor/unit and/or counseling patient: Coding Level of Care Code 37935 SUB INP/OBS CARE 2/35MIN Diagnoses Shock R57.9 Cardiac amyloidosis E85.4; I43 Atrial fibrillation, permanent I48.21 Central sleep apnea G47.31
[2023-08-10] MEDS: fentaNYL citrate PF 100 MCG/2 ML VIAL ONE (07:55)
[2023-08-10] MEDS: MIDODRINE HCL 2.5 MG TAB PO SCH (08:00)
--- NOTE | 2023-08-10 13:21 | Podiatry Progress Note ---
Date of Service August 10, 2023 Assessment & Plan (1) Abscess of left foot: (2) Sepsis: (3) Staphylococcus aureus bacteremia with sepsis: (4) Gait disturbance: Plan patient examined and evaluated. We discussed at length the etiology and treatment of his left heel ulceration. I would recommend obtaining the MRI, if possible now. This would help elucidate any underlying bone infection, which could acutely change treatment plans. Furtheer, I placed a wound care consult to help manage wound healing. This could benefit from a wound VAC, will load with the overall small surface dimensions, it may not be warranted. This may close secondarily if allowed to granulate in if no underlying infection is present. We will continue to follow him while he remains inpatient and happy to follow-up if he is discharged on outpatient basis Admission and Anticipated Discharge Date Admission Date: August 02, 2023 Subjective patient seen today 1 day status post left heel I&D. He is doing well with decreased pain. He was unable to have the MRI performed yesterday due to technical difficulties with the MRI machine. He denies any new concerns. Overall, his pain is drastically decreased, though changed and still present. He denies any new or worsening signs or symptoms of infection. Review of Systems Constitutional: no fever and no chills Eyes: no problem reported Ear, Nose, Mouth, Throat: no problem reported Respiratory: no problem reported Cardiovascular: no problem reported Gastrointestinal: no problem reported Genitourinary: no problem reported Musculoskeletal: Heel pain Integumentary: + new lesions (Left heel blistering, not ed by Dr. Parks initially) and + problem reported Neurologic: + gait abnormality Psychiatric: no problem reported Physical Exam Physical Exam: packing removed from the left heel ulceration. The wound bed is 100% granular with the wound being small, measuring 1 x 0.8 cm but deep, around 1.2 cm deep. No active bleeding or purulent drainage is noted to this wound. Constitutional: WD/WN, vitals as above well developed, well nourished and + ill appearing; no acute distress Eyes: PERRL, conjunctivae normal, anicteric sclerae ENMT: external ear and nose normal, oropharynx normal Neck: trachea midline, no thyromegaly Respiratory: normal respiratory effort; no respiratory distress Cardiovascular: Rate/Rhythm: regular rate and regular rhythm Vessels: posterior tibial pulses present (diminished 2/2 pedal edema) and dorsalis pedis pulses present (diminished 2/2 pedal edema) Extremities: normal capillary refill and + pedal edema Chest (Breasts): Chest: normal inspection of chest Gastrointestinal (Abdomen): Inspection/Auscultation: abdomen normal to inspection Musculoskeletal: Head/Neck/Chest: normocephalic and head atraumatic Extremities: + limited ROM of extremities and + foot abnormality (Fluid filled blister to plantar left heel) Gait: + antalgic gait Skin: + lesion, + wound (distal right 3rd toe) , + skin atrophy, + erythema and + nails dystrophic Trauma: no evidence of skin trauma (No specific puncture wound/portal of entry) Neurologic: moves all extremities and awake; + abnormal sensation to monofilament and no focal motor deficits Psychiatric: A+Ox3, euthymic affect Results & Data Results & Data Vital Signs (Past 12 Hours) Vital Signs Temp Pulse Pulse Resp BP Pulse Ox O2 Del Method 08/10/23 08:00 60 08/10/23 07:00 36.8 C 72 20 105/77 97 Room Air 08/10/23 02:43 36.6 C 60 18 106/75 100 Room Air (2) Sepsis Acute renal failure type: unspecified Sepsis acute organ dysfunction status: with acute organ dysfunction Sepsis type: sepsis due to unspecified organism Severe sepsis acute organ dysfunction type: acute renal failure Severe sepsis shock status: with septic shock Qualified Code(s): A41.9 - Sepsis, unspecified organism; R65.21 - Severe sepsis with septic shock; N17.9 - Acute kidney failure, unspecified
--- NOTE | 2023-08-10 14:13 | Magnetic Resonance Report ---
MR ankle LT wo con CLINICAL HISTORY: 78 years-old Male with Left heel ulcer, r/o OM. Chronic pain of the left ankle wit h recent incision and drainage yesterday. Clinical concern for possible osteomyelitis. COMPARISON: Calcaneus radiographs 08/03/2023. TECHNIQUE: Multiplanar, multi sequence MRI of the left ankle was performed without contrast. FINDINGS: Study is motion degraded. Tendinosis with chronic high-grade split tear of the malleolar and inframal leolar peroneus brevis. Moderate peroneus longus tendinosis. Dystrophic calcifications noted within t he thickened plantar fascia. The medial cord is most prominently thickened. Small to moderate calcane al enthesophytes. No acute plantar fascial tear is identified. There is atrophy of the intrinsic musculature. There is diffuse skin thickening with subcutaneous tonny ma. More pronounced subcutaneous edema within the heel pad. 11 mm cutaneous ulcer of the midheel pad without abscess. No definite MR evidence of acute osteomyelitis. Small tibiotalar and subtalar joint effusions. No definite tenosynovitis on this limited exam. IMPRESSION: 1. Small cutaneous ulcer of the heel pad. No abscess. 2. No MRI evidence of acute osteomyelitis. 3. Chronic denervation changes of the musculature. Diffuse subcutaneous edema may represent celluliti s, venous stasis or lymphedema. 4. Evidence of chronic plantar fasciitis. 5. Tendinosis of the peroneal tendons with chronic high-grade split tear of the peroneus brevis. ACT 112: Negative or not required by law. The above report was generated using voice recognition software. It may contain grammatical, syntax o r spelling errors. Dictated: 08/10/2023 1:31 PM Transcribed: 08/10/2023 1:53 PM Pavel [id number] [place] [id number] Electronically signed by: Cory Asher M.D. 08/10/2023 2:12 PM
[2023-08-10] MEDS: TAMSULOSIN HCL 0.4 MG CAP PO SCH (21:55)
--- NOTE | 2023-08-11 07:47 | Hospitalist Progress Note ---
Date of Service August 11, 2023 Assessment & Plan (1) Shock: Plan: Septic shock secondary to MSSA bacteremia had multiple skin sources including heel abscess that was noted on 08/08/2023, in the context of amyloid cardiomyopathy Shock resolved, required several days of oral midodrine following ICU course, discontinued 08/09 pm 1 of 4 blood cultures are positive with MSSA, ID recommends 6 weeks treatment from first negative blood cx LD 09/13/23 weekly cbc cmp followed by pcp I&D of L heel abscess 08/[address] Brown - grew MSSA. MRI ankle 08/09 reviewed - no evidence of osteomyelitis, chronic plantar fasciitis and chronic peroneus brevis tear other infectious workup: CTchest with moderate pulmonary edema no defined infiltrates or commented upon CTA/P is with large volume ascites, Previous history of cholecystectomy. Paracentesis / ascitic culture negative to date, cytology pending -MRI of T/L spine does not suggest infectious process but has other abnormalities, see below -Tickborne illness/infection studies are negative Infectious disease consultation treating for staph bacteremia. 6 weeks IV cefazolin planned. PICC placed. Follow up with colorectal surgeon Planned to discharge to [facility] for rehab tomorrow, I spoke with receiving physician and gave signout (2) Cardiac amyloidosis: Plan: Cardiac amyloidosis typically managed at [facility]. Repeat echocardiogram shows EF approximately 40-45%, similar to March heart failure with midrange ejection fraction Acute on chronic mid range CHF Dual-chamber pacemaker in place for heart block EKG is ventricular paced rhythm. Troponin is elevated from demand ischemia do not suspect acute coronary syndrome Tafamidis continued Cardiology is consulted. cxr of 08/03 continues with pulmonary edema. diuresis on 08/04 and resume guideline based meds for HF when tolerated - adding back metoprolol XL 12.5 mg in AM, ARB and diuretics still held - looks mildly volume depleted (3) Atrial fibrillation, permanent: Plan: History of A-fib/a flutter, history of heart block s/p pacer Anticoagulation apixaban 5mg bid Metoprolol held for hypotension Paced rhythm on EKG, concern of staph bacteremia with implanted devices - longer duration of treatment planned (4) Central sleep apnea: Plan: CPAP nightly Plan acute urinary retention - whitman removed AM 08/09, had retention that evening, started tamsulosin at HS. Voiding spontaneously. Note bladder scan will be false positive due to ascites. noting concern for L T2 pedicle lesion that is undefined, potential for bony metastatic disease, discussed with Dr. Sawant who had already reviewed with radiologist - may be hemangioma, follow up imaging planned when other fractures healed acute or subacute T12, L1 osteoporotic compression fractures, severe spinal stenosis at L3-4, mod at L2-3 & L4-5, multilevel lateral recess and foraminal stenosis -vitamin D deficiency - level is 10. replace with 50,000 units weekly then maintenance dosing -ordered 24h urine calcium to check for hypercalciuria per Dr. Schafer's recommendation ascites cytology resulted negative CKD-2 Cr at baseline Pressure ulcer of sacral region, stage 2, POA - continue wound care, pressure offloading DVT prophylaxis: Anticoagulated with apixaban Admission and Anticipated Discharge Date Admission Date: August 02, 2023 Subjective Feeling fairly well, L heel pain manageable on tylenol, has ambulated Possible urinary retention last night (vs low UOP) but has been able to void spontaneously since then x 3 Physical Exam Physical Exam: PHYSICAL EXAMINATION Last 24h vital signs reviewed, see documentation in flowsheet General: sitting up in bed HEENT: Normocephalic, atraumatic, pupils round and equal, sclerae anicteric, no conjunctival injection, moist mucus membranes Lungs: Normal respiratory effort. Clear to auscultation bilaterally. No RRW Heart: Regular rate and rhythm, no murmurs. No JVD Abdomen: mod ascites +BT Extremities: Warm, dry, well-perfused. No extremity edema. L foot dressed in surgical dressing, mark wrap. reviewed photo from this AM Neuro: Alert and oriented x 4, face symmetric, moves 4 extremities well Psych: Normal affect and behavior Results & Data Results & Data Vital Signs (Past 12 Hours) Vital Signs Temp Pulse Pulse Resp BP Pulse Ox O2 Del Method 08/11/23 07:43 60 08/11/23 03:45 36.7 C 74 16 112/80 93 Room Air 08/10/23 23:25 37.1 C 64 18 105/75 97 Room Air PG Care Time/CCT Total # of Minutes Spent Total Time Spent with Patient: Total time spent is greater than 50% in coordination of care (as documented) at patient's floor/unit and/or counseling patient: Coding Level of Care Code 87093 SUB INP/OBS CARE 2/35MIN Diagnoses Shock R57.9 Cardiac amyloidosis E85.4; I43 Atrial fibrillation, permanent I48.21 Central sleep apnea G47.31
--- NOTE | 2023-08-11 09:18 | Podiatry Progress Note ---
Date of Service August 11, 2023 Assessment & Plan (1) Abscess of left foot: (2) Gait disturbance: Plan patient examined and evaluated. We discussed at length the etiology and treatment of his left heel ulceration. Dressing was removed, cleaned, and redressed with Aquacel and sterile dressing. He can likely be d/c to inpatient rehab, as was discussed with him. This heel should continue to improve and heal secondarily. No new changes to his plan today. Ok to d/c when stable per medicine. Can f/u in our office outpatient as needed. We will plan on signing off for now, but do not hesitate to reconsult as necessary. Admission and Anticipated Discharge Date Admission Date: August 02, 2023 Anticipated date of discharge: 08/12/23 Subjective Pt seen at bedside POD#2. No new concerns. Able to have MRI performed yesterday. Continues to improve. Pain decreased, but still present. No new N/V/F/C/SOB Review of Systems Constitutional: no fever and no chills Eyes: no problem reported Ear, Nose, Mouth, Throat: no problem reported Respiratory: no problem reported Cardiovascular: no problem reported Gastrointestinal: no problem reported Genitourinary: no problem reported Musculoskeletal: Heel pain Integumentary: + new lesions (Left heel blistering, not ed by Dr. Parks initially) and + problem reported Neurologic: + gait abnormality Psychiatric: no problem reported Physical Exam Physical Exam: packing removed from the left heel ulceration again. The wound bed is 100% granular with the wound being small, measuring 1 x 0.8 cm, more superficial today, only 0.4cm deep. No active bleeding or purulent drainage is noted to this wound. Constitutional: WD/WN, vitals as above well developed, well nourished and + ill appearing; no acute distress Eyes: PERRL, conjunctivae normal, anicteric sclerae ENMT: external ear and nose normal, oropharynx normal Neck: trachea midline, no thyromegaly Respiratory: normal respiratory effort; no respiratory distress Cardiovascular: Rate/Rhythm: regular rate and regular rhythm Vessels: posterior tibial pulses present (diminished 2/2 pedal edema) and dorsalis pedis pulses present (diminished 2/2 pedal edema) Extremities: normal capillary refill and + pedal edema Chest (Breasts): Chest: normal inspection of chest Gastrointestinal (Abdomen): Inspection/Auscultation: abdomen normal to inspection Musculoskeletal: Head/Neck/Chest: normocephalic and head atraumatic Extremities: + limited ROM of extremities and + foot abnormality (Fluid filled blister to plantar left heel) Gait: + antalgic gait Skin: + lesion, + wound (distal right 3rd toe) , + skin atrophy, + erythema and + nails dystrophic Trauma: no evidence of skin trauma (No specific puncture wound/portal of entry) Neurologic: moves all extremities and awake; + abnormal sensation to monofilament and no focal motor deficits Psychiatric: A+Ox3, euthymic affect Results & Data Results & Data Vital Signs (Past 12 Hours) Vital Signs Temp Pulse Pulse Resp BP Pulse Ox O2 Del Method 08/11/23 08:00 36.8 C 77 18 110/74 95 Room Air 08/11/23 07:43 60 08/11/23 03:45 36.7 C 74 16 112/80 93 Room Air 08/10/23 23:25 37.1 C 64 18 105/75 97 Room Air Diagnostic Findings MRI reveals no deep extension of the ulceration to the calcaneus and no underlying abscess formation.
[2023-08-11] MEDS: ERGOCALCIFEROL 1250 MCG (50,000 UNITS) CAP PO ONE (09:26)
[2023-08-12] MEDS: METOPROLOL SUCC 25MG EXT REL TAB PO SCH (08:58)
--- NOTE | 2023-08-12 12:47 | Discharge Summary ---
Date of Service August 12, 2023 Admission HPI Per Admitting Provider Patient seen at the bedside. He reports that he has had progressive abdominal and lower extremity swelling. Reports he does have a history of cardiac amyloidosis and suspected fluid was related to this. He has not had fever, chills, sweats but has had 10 swelling in his abdomen and also has midline sometimes more the left but on exam midline low thoracic/high lumbar back pain. He has not had fever/chills but feels poorly. He has not had any dysuria. No cough or shortness of breath. No chest pain or pressure. Did take morning medications. He is on tafamidis for his amyloidosis. He also take spironolactone, torsemide, and apixaban. He reports his primary symptom that brought him to the hospital is actually back pain which has been intermittent for many decades, but does seem to be much worse than normal in the last few days. He endorses falls in the last week and difficulty with balance. Bedside ultrasound obtained due to his lower extremity tense pitting edema was with concern for pericardial effusion, this did not show evidence of tamponade. Reports he has still been urinating and that this has been without pain or change in frequencyWhile patient is a good historian of many parts of his history and does seem to retain history also did not recognize several providers that have previously known and appears to have a waxing and waning delirium/altered mental status at time of assessment. Principal Diagnosis Septic shock due to MSSA bacteremia related to skin and soft tissue infection, L heel MSSA abscess Discharge Exam PHYSICAL EXAMINATION Last 24h vital signs reviewed, see documentation in flowsheet General: awake alert sitting in bed HEENT: Normocephalic, atraumatic, pupils round and equal, sclerae anicteric, no conjunctival injection, moist mucus membranes Lungs: Normal respiratory effort. Clear to auscultation bilaterally except mild crackles L>R base clearing with respirations. no wheezing. Heart: Regular rate and rhythm, no murmurs. No JVD Abdomen: ascites, full but not tense +BT Extremities: Warm, dry, well-perfused. trace lower extremity edema. L foot dressed in surgical dressing, mark wrap. Neuro: Alert and oriented x 4, face symmetric, moves 4 extremities well Psych: Normal affect and behavior Discharge Data Allergies Allergy/AdvReac Type Severity Reaction Status Date / Time No Known Allergies Allergy Verified 06/05/23 13:38 Consultations 08/02/23 15:16 ED Decision to Admit Stat 08/02/23 15:34 Consult Nephrology Stat 08/02/23 16:36 Consult Marine Diver Routine 08/02/23 18:14 Consult Cardiology Routine 08/03/23 09:43 Consult Infectious Diseases Routine 08/08/23 14:59 Consult Podiatry Routine Procedures Performed Operation Date: 08/09/23 15:25 Actual Procedures p Left Heel Incision and Drainage(Left) - Danelle Brown DPM Ordered Studies 08/02/23 12:34 CT abd pelvis wo con Stat CT chest diagnostic wo con Stat CT head/brain wo con Stat 08/02/23 19:19 MR thoracic spine wo/w con Stat 08/02/23 21:01 MR lumbar spine wo/w con Stat 08/10/23 10:00 MRI Ankle [MR ankle LT wo con] Routine Chest X-Ray 08/02/23 11:55 XR chest 1V portable CLINICAL HISTORY: weakness COMPARISON STUDY: Chest radiograph March 18, 2023. FINDINGS: There is no pneumothorax or pleural effusion. Cardiomegaly is unchanged. A left subclavian pacer is in place. There is no radiographic evidence for pulmonary edema. There is no consolidation. A mildly displaced fracture of the anterior right sixth rib is new since prior chest radiograph of March 18, 2023. IMPRESSION: 1. Stable cardiomegaly. No evidence for pulmonary edema. 2. Mildly displaced fracture of the anterior right sixth rib. The appearance favors a subacute fracture. No pneumothorax. ACT 112: Negative or not required by law. Electronically signed by: Joshua Piña M.D. 08/02/2023 12:50 PM Abdomen/Pelvis CT 08/02/23 12:[address] WITHOUT CONTRAST CT DOSE: 2687.54 mGy.cm HISTORY: weakness, renal failure TECHNIQUE: Multiaxial CT images of the abdomen and pelvis were performed without contrast. A dose lowering technique was utilized adhering to the principles of ALARA. COMPARISON STUDY: Abdomen and pelvis CT 03/10/2021. FINDINGS: The lung bases will be reported on the same day chest CT. Bibasilar linear densities favor subsegmental atelectasis. There are trace bilateral pleural effusions. The heart remains enlarged. Pacemaker wires are noted. No pneumoperitoneum. No pneumatosis. Slightly displaced distal sacral fracture which is likely subacute. There is a mild to moderate superior endplate compression fracture at T12 which appears subacute. Multiple bilateral rib fractures most pronounced on the right which also appear to represent healing/subacute fractures. No definite acute fractures identified. Diffuse body wall edema. The gallbladder surgically absent. The unenhanced liver, pancreas, spleen, and adrenal glands unremarkable. Bilateral renal cysts again noted. The dominant 7.5 cm cyst within the left upper pole demonstrates mural calcification. There is a punctate stone within the lower pole the left kidney. No hydronephrosis. Decreased attenuation within the blood pool suggesting underlying anemia. No retroperitoneal lymphadenopathy. Normal caliber abdominal aorta. No pelvic lymphadenopathy. There is a large amount of ascites which has progressed. Normal bladder. The prostate gland remains enlarged. Suboptimal evaluation for bowel pathology due to the lack of intravenous and oral contrast. However, there is no definite bowel wall thickening or obstruction. Colonic diverticulosis. No evidence for acute diverticulitis. Visualized appendix is unremarkable. IMPRESSION: 1. Interval progression of the fluid overload. This includes a large amount of ascites which has progressed. 2. No definite bowel wall thickening or obstruction. 3. Left-sided nephrolithiasis. No ureteral stones. No hydronephrosis. 4. Multiple subacute/healing fractures as described above. No acute fractures. 5. Additional findings as described above. ACT 112: Negative or not required by law. Electronically signed by: Caleb Hogan M.D. 08/02/2023 2:[address] 08/02/23 12:34 CT chest diagnostic wo con CLINICAL HISTORY: weakness, renal failure TECHNIQUE: Multidetector row helical CT of the chest was performed. Coronal and sagittal reformations were obtained. Automated dose lowering techniques and/or adjustment according to patient size were utilized for this exam. Comparison: Comparison is made to chest radiograph 08/02/2023 FINDINGS: Lungs and pleura: Atelectasis and mild interlobular septal thickening are seen in the dependent portions of the lungs. Heart and pericardium: There is cardiomegaly without evidence of pericardial effusion. Vessels: Pulmonary trunk measures 37 mm. Gas is seen in the subclavian vein, external jugular vein, and pulmonary trunk, likely due to intravenous injection. Mediastinum and idalia: Subcentimeter lymph nodes are seen. Chest wall and lower neck: Unremarkable. Abdomen: For findings below the diaphragm, please refer to CT of the abdomen dated the same. Bones: Degenerative changes in the thoracic spine. Subacute appearing fracture of the lateral right sixth, seventh, and eighth ribs. IMPRESSION: 1. Cardiomegaly with possible moderate pulmonary edema. 2. Subacute right rib fractures. ACT 112: Negative or not required by law. Electronically signed by: Nino Ray M.D. 08/02/2023 2:[address] 08/02/23 12:34 CT OF THE HEAD WITHOUT CONTRAST CLINICAL HISTORY: Weakness. COMPARISON STUDY: Head CT March 18, 2023. TECHNIQUE: Helical axial images of the head were obtained without IV contrast. Automated exposure control was utilized for the study. A dose lowering technique was utilized adhering to the principles of ALARA. FINDINGS: No acute intracranial hemorrhage, midline shift or mass effect is present. The ventricular system is unremarkable. The basal cisterns are patent. No extra-axial collections are present. There are no findings to suggest acute dural sinus thrombosis or acute territorial infarct. The appearance of the brain is unchanged. Multiple sites of venous gas are noted. IMPRESSION: 1. No acute intracranial findings. 2. Multifocal venous gas, likely related to IV insertion. ACT 112: Negative or not required by law. Electronically signed by: Joshua Piña M.D. 08/02/2023 2:35 PM Thoracic Spine MRI 08/02/23 19:19 CR Exam(s): MRI T SPINE W/WO Contrast IV Amt: 8cc gadavist EXAM: MR Thoracic Spine Without and With Intravenous Contrast CLINICAL HISTORY: Reason for exam: epidural abscess rule out, low back pain x 1 month. leg weakness. history of sciatica. TECHNIQUE: Magnetic resonance images of the thoracic spine without and with intravenous contrast in multiple planes. Technical issues resulting in moderate signal dropout particularly in the lower thoracic spine. CONTRAST: Patient received 8cc gadavist of IV contrast COMPARISON: CT abdomen pelvis 08/02/23 FINDINGS: Vertebrae: Stable, moderate, biconcave compression fracture of T12, minimal retropulsion superior endplate. Mild edema suggest that this is acute or subacute, and subacute fractures can be associated with avascular necrosis. There is significant technical artifact limiting evaluation. Mild heterogeneous marrow signal, specifically at T2 left pedicle, there is an enhancing mass that is concerning for bony metastatic disease. More subtle lesions are seen T8, T9 and T10 without corresponding CT abnormality that could reflect an atypical hemangioma, though metastatic disease difficult to entirely exclude. No discitis or osteomyelitis. Discs/spinal canal/neural foramina: Moderate, central T7-8 disc protrusion, without spinal stenosis. No other focal disc disease or spinal stenosis. Spinal cord: Grossly normal signal. No abnormal enhancement. Soft tissues: Bilateral pleural effusions and ascites, stable. No definite epidural abscess or abnormal enhancement. IMPRESSION: 1. Moderate biconcave compression T12 with edema, may reflect an acute or subacute fracture that may be associated with avascular necrosis, correlate clinically. 2. Possible bony metastatic disease, most notably left T2 pedicle. Correlate clinically, and if necessary with nuclear medicine bone scan imaging or PET CT as clinically indicated. 3. Moderate central disc protrusion T7-8. 4. No discitis, osteomyelitis, epidural abscess, spinal stenosis, abnormal cord signal or abnormal enhancement. 5. Significant technical artifact limits detail. Consider follow-up if symptoms persist or progress. Communications: Verify Receipt with Nurse Electronically signed by: Enedina Wallis M.D. 08/03/23 01:58 AM Lumbar Spine MRI 08/02/23 21:01 Exam(s): MRI L SPINE W/WO Contrast IV Amt: 8cc gadavist EXAM: MR Lumbar Spine Without and With Intravenous Contrast CLINICAL HISTORY: Reason for exam: epidural abscess r/o. TECHNIQUE: Magnetic resonance images of the lumbar spine without and with intravenous contrast in multiple planes. Significant limited evaluation due to signal dropout. CONTRAST: Patient received 8cc gadavist of IV contrast COMPARISON: CT abdomen pelvis done earlier the same day. FINDINGS: Vertebrae: Moderate T12 compression deformity, with underlying edema, nonspecific, see separately dictated thoracic spine MRI report. Mild superior endplate edema and deformity of L1, likely acute or subacute fracture. There is no worrisome metastatic disease in the lumbar spine. No discitis or osteomyelitis. Conus: Terminates normally. No abnormal enhancement. Soft tissues: No obvious psoas or epidural abscess. Significant artifact limits evaluation. Ascites and pleural effusions, better seen on CT. DISCS/SPINAL CANAL/NEURAL FORAMINA: L1-L2: Mild degenerative disc disease. Severe facet hypertrophy and borderline central spinal stenosis. L2-L3: Moderate central spinal stenosis due to moderate disc protrusion, disc space narrowing, severe facet hypertrophy. There is moderate to severe bilateral foraminal stenosis. L3-L4: Severe disc space narrowing, large disc herniation, severe facet and ligamentum flavum hypertrophy, results in severe central spinal stenosis and severe bilateral foraminal stenosis. L4-L5: Severe disc space narrowing, with moderate circumferential disc protrusion, with inferior migration on the right, severe facet hypertrophy, and severe right foraminal and right lateral recess stenosis. Moderate central spinal stenosis and left foraminal stenosis. L5-S1: Severe disc space narrowing with moderate slightly rightward disc bulge and osteophyte, and severe bilateral foraminal stenosis. No significant central spinal stenosis, though potential for right S1 impingement syndrome, correlate clinically. IMPRESSION: 1. Moderate compression fracture T12, see separately dictated thoracic spine MRI. 2. Mild superior endplate edema and compression fracture L1, likely acute or subacute. 3. Severe diffuse degenerative disc disease including severe central spinal stenosis L3-4, moderate central spinal stenosis L2-3 at L4-5 and multilevel lateral recess and foraminal stenosis, as detailed above. 4. No discitis, osteomyelitis, or epidural abscess, though there is significant technical artifact limiting evaluation. Consider follow-up if symptoms persist. 5. No bony metastatic disease in the lumbar spine. Electronically signed by: Enedina Wallis M.D. 08/03/23 01:59 AM Calcaneus X-Ray 08/03/23 14:19 XR calcaneus LT min 2V CLINICAL HISTORY: poss osteo TECHNIQUE: 2 views of the left calcaneus were obtained. Comparison: None available at the time of this dictation. FINDINGS: No evidence of bony erosion is seen. The alignment is anatomic. The joint spaces are well preserved. No soft tissue abnormality is identified. IMPRESSION: No radiographic evidence of osteomyelitis. If clinical concern remains, MRI is a more sensitive modality. ACT 112: Negative or not required by law. Electronically signed by: Nino Ray M.D. 08/03/2023 3:03 PM Calcaneus X-Ray 08/03/23 14:19 RIGHT CALCANEUS 2 VIEWS CLINICAL HISTORY: Right heel pain. Infection. FINDINGS: AP and lateral views of the right calcaneus are correlated with radiograph of the right foot dated 05/27/2016. The skeletal structures are osteopenic. There is no radiographic evidence of calcaneal fracture. There are large dorsal and plantar heel spurs. No erosive change is seen. An os trigonum is incidentally noted. There is soft tissue edema around the heel with a dorsal wound. No radiodense foreign body is identified. There is atherosclerotic calcification of the regional arteries. IMPRESSION: 1. No acute bony abnormality is identified. 2. Soft tissue edema suggests cellulitis and there is a wound along the posterior aspect of the heel. 3. Large heel spurs. Electronically signed by: Luis Daniel Marques M.D. 08/03/2023 2:56 PM Chest X-Ray 08/04/23 18:17 XR chest 1V portable CLINICAL HISTORY: picc placement/ left pacemaker COMPARISON STUDY: Chest radiograph and chest CT August 02, 2023. FINDINGS: The tip of the right PICC projects over the proximal right atrium. There are trace bilateral pleural effusions. There is no pneumothorax. Left subclavian pacer remains in place. Moderate cardiomegaly is again noted. Left basilar opacity has increased. Interstitial thickening has developed. IMPRESSION: 1. Tip of right PICC projects over the proximal right atrium. 2. Cardiomegaly. Mild pulmonary edema with trace bilateral pleural effusions. 3. Increase in left basilar opacity. This likely reflects atelectasis when correlating with prior chest CT. ACT 112: Negative or not required by law. Electronically signed by: Joshua Piña M.D. 08/04/2023 7:02 PM Chest X-Ray 08/04/23 19:29 XR chest 1V portable CLINICAL HISTORY: PICC placement COMPARISON STUDY: Chest radiograph performed earlier today. FINDINGS: The tip of the right PICC projects over the cavoatrial junction. Left subclavian [id number] is in place. Cardiomegaly is again noted. Left basilar opacity has increased have increased. There are small bilateral pleural effusions. There is no pneumothorax. Interstitial thickening is present. IMPRESSION: 1. Tip of right PICC projects over the cavoatrial junction. 2. Increase in left basilar opacity which could reflect atelectasis or pneumonia. 2. Cardiomegaly with mild interstitial pulmonary edema and small bilateral pleural effusions. ACT 112: Negative or not required by law. Electronically signed by: Joshua Piña M.D. 08/04/2023 7:53 PM Ankle MRI 08/10/23 10:00 MR ankle LT wo con CLINICAL HISTORY: 78 years-old Male with Left heel ulcer, r/o OM. Chronic pain of the left ankle with recent incision and drainage yesterday. Clinical concern for possible osteomyelitis. COMPARISON: Calcaneus radiographs 08/03/2023. TECHNIQUE: Multiplanar, multi sequence MRI of the left ankle was performed without contrast. FINDINGS: Study is motion degraded. Tendinosis with chronic high-grade split tear of the malleolar and inframalleolar peroneus brevis. Moderate peroneus longus tendinosis. Dystrophic calcifications noted within the thickened plantar fascia. The medial cord is most prominently thickened. Small to moderate calcaneal enthesophytes. No acute plantar fascial tear is identified. There is atrophy of the intrinsic musculature. There is diffuse skin thickening with subcutaneous edema. More pronounced subcutaneous edema within the heel pad. 11 mm cutaneous ulcer of the midheel pad without abscess. No definite MR evidence of acute osteomyelitis. Small tibiotalar and subtalar joint effusions. No definite tenosynovitis on this limited exam. IMPRESSION: 1. Small cutaneous ulcer of the heel pad. No abscess. 2. No MRI evidence of acute osteomyelitis. 3. Chronic denervation changes of the musculature. Diffuse subcutaneous edema may represent cellulitis, venous stasis or lymphedema. 4. Evidence of chronic plantar fasciitis. 5. Tendinosis of the peroneal tendons with chronic high-grade split tear of the peroneus brevis. ACT 112: Negative or not required by law. The above report was generated using voice recognition software. It may contain grammatical, syntax or spelling errors. Dictated: 08/10/2023 1:31 PM Transcribed: 08/10/2023 1:53 PM Pavel [id number] [email or web address] [id number] Electronically signed by: Cory Asher M.D. 08/10/2023 2:12 PM 08/10/23 05:31 08/10/23 05:31 Hospital Course (1) Shock: Septic shock secondary to MSSA bacteremia - initially required ICU, pressors. Had multiple skin sources of infection including heel abscess that was noted on 08/08/2023, in the context of amyloid cardiomyopathy Shock resolved, required several days of oral midodrine following ICU course, discontinued 08/09 pm 1 of 4 admission blood culture bottles positive with MSSA, subsequent cultures negative ID consulted, recommends 6 weeks treatment from first negative blood cultures - end of treatment 09/13/23. Longer duration of treatment recommended because of pacemaker RUE PICC - remove after completion of treatment weekly cbc cmp for antibiotics monitoring follow up with local ID if possible or with Dr. Sawant I&D of L heel abscess 08/[address] Brown - grew MSSA. MRI ankle 08/09 - no evidence of osteomyelitis, chronic plantar fasciitis and chronic peroneus brevis tear continue wound care and follow up with Dr. Brown as needed WBAT with surgical shoe other infectious workup: CTchest with moderate pulmonary edema no defined infiltrates or commented upon CTA/P is with large volume ascites, Previous history of cholecystectomy. Paracentesis / ascitic culture negative, cytology negative for malignancy -MRI of T/L spine does not suggest infectious process but has other abnormalities, see below -Tickborne illness/infection studies are negative (2) Cardiac amyloidosis: Cardiac amyloidosis typically managed at [facility]. 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 Troponin was elevated from demand ischemia do not suspect acute coronary syndrome Cardiology consulted this admission (3) Atrial fibrillation, permanent: History of A-fib/a flutter, history of heart block s/p pacer Anticoagulation apixaban 5mg bid Metoprolol concern of staph bacteremia with implanted devices - longer duration of treatment planned (4) Central sleep apnea: CPAP nightly Plan acute urinary retention - whitman removed AM 08/09, had retention that evening, started tamsulosin at HS. Voiding spontaneously. Note bladder scan will be false positive due to ascites. noting concern for L T2 pedicle lesion that is undefined, potential for bony metastatic disease, discussed with Dr. Sawant who had already reviewed with radiologist - may be hemangioma, follow up imaging planned when other fractures healed acute or subacute T12, L1 osteoporotic compression fractures, severe spinal stenosis at L3-4, mod at L2-3 & L4-5, multilevel lateral recess and foraminal stenosis -vitamin D deficiency - level is 10. replace with 50,000 units weekly then maintenance dosing -ordered 24h urine calcium to check for hypercalciuria per Dr. Schafer's recommendation but appears this was not collected by nursing CKD-2 Cr at baseline Pressure ulcer of sacral region, stage 2, POA - continue wound care, pressure offloading Acute metabolic encephalopathy - was present on admission, caused by septic shock, resolved DVT prophylaxis: Anticoagulated with apixaban Total Time Total Time Spent Total Time Spent (In Minutes): I personally spent: 40 minutes today on clinical care activities including: reviewing chart notes and vital signs examining and counseling the patient writing orders, discharge instructions documentation Discharge Plan Discharge Items Patient Disposition: Transfer Inpatient Rehab Fac Reason For Visit: HYPOTENSION, FLUID OVERLOAD, ?SEPSIS Discharge Diagnosis: Sepsis due to MSSA bacteremia from L heel abscess Activity: Per Instructions section Weightbearing: Full weightbearing Weightbearing Comment: WBAT LLE with surgical shoe Non-emergency contact: Primary Care Provider, Surgeon and Web Content Coordinator Call non-emergency contact if: you have any medication questions, your symptoms worsen and you have a fever Follow-up/Referrals: Quentin Sawant MD [Primary Care Provider] - Danelle Brown DPM [Surgeon] - Diet: Heart Healthy Addtl Attending Provider Instructions: PT and OT evaluate and treat L heel abscess: WBAT LLE wearing surgical shoe Follow up with irrigating pump operator as needed Wound care instructions: Clean wounds with saline and pat dry. Apply Aquacel Ag to bilateral arms, sacrum, and right heel and secure with optifoams. To right and left heels keel protected with optifoams and waffle boots. change daily or as needed for increased drainage. Turn and reposition Q2hrs. to left plantar foot- irrigate with saline using 35cc syinge and 18g blunt needle. Fill with 1/4" Iodoform. Cover with Optifoam. Change Iodoform daily. Change Optifoam daily and as needed for drainage. Methicillin sensitive staph aureus bacteremia ID workers compensation consultant recommended 6 weeks IV antibiotics (because of pacemaker leads): treat through 09/13/23 weekly CBC with diff and CMP for antibiotic monitoring RUE PICC - per line care protocol. Remove PICC once antibiotics completed Repeat blood cultures 3-7 days after completion of antibiotics in setting of pacemaker Arrange ID follow up if possible, vs follow up with Dr. 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 Metoprolol resumed 08/10, resuming ARB on discharge torsemide/spironolactone still held, appeared volume depleted 08/09-08/10, assess volume status for resumption of diuretics in 2-3 days follow up with car hop Subacute to acute compression fractures Vitamin D deficiency - 50,000 D3 weekly for 6 weeks then maintenance dosing Follow up with Dr. Schafer for osteoporosis, fractures T2 pedicle abnormality - Dr. Sawant aware, possibly hemangioma cannot rule out met, follow up imaging planned Has had questionable urinary retention and flomax started 08/09. Bladder scan will be inaccurate due to presence of ascites Continue nightly CPAP for central sleep apnea Gabapentin has been held this hospitalization (hypotension and has not needed it), consider resuming if pain, perhaps at lower dose Pending Studies at Discharge: No Stand-Alone Forms: My [facility] Skilled Items Patient informed of condition?: Yes DNR: No Discharge Level of Care: Acute rehab Communicable Disease: No Discharge Prognosis: Improving Lines: PICC Urinary Catheter: No Medications and DC Order Prescriptions: New acetaminophen 325 mg Tablet 650 mg PO Q4H PRNQty: 0 0RF tamsulosin 0.4 mg Capsule 0.4 mg PO HS Qty: 0 0RF cefazolin 2 gram recon soln 2 g IV Q8H Rx Instructions: 6 weeks treatment - through 09/13/23 for MSSA bacteremia Continued metoprolol succinate 25 mg tablet extended release 24 hr 12.5 mg PO DAILY Qty: 45 3RF losartan 25 mg tablet 25 mg PO DAILY Qty: 90 3RF Eliquis 5 mg tablet 5 mg PO BID Qty: 180 3RF Vyndaqel 20 mg capsule 20 mg PO DAILY Changed methocarbamol 500 mg tablet 500 mg PO TID PRN (Reason: muscle spasm) Qty: 90 3RF Held torsemide 10 mg tablet 50 mg PO UD Hold Instructions: Resume on 08/19/23. reassess BP and volume status Rx Instructions: half tab am. additional half tab pm prn spironolactone 25 mg tablet 25 mg PO UD Hold Instructions: Resume on 08/19/23. reassess volume status Rx Instructions: 1 tablet daily and PRN weight gain maximum dose daily 3 tablets. Discontinued gabapentin 300 mg capsule 300 mg PO BID Qty: 60 3RF Rx Instructions: take one in the evening for 1 week then bid acetaminophen [Tylenol] 325 mg capsule 325 mg PO QID PRN (Reason: Pain) Discharge Orders: Discharge Order (Routine); Ordered 08/12/23 Ordered By: Alyson Cooper Admission Data Admit Date/Time: 08/02/23 16:36 Attending Provider: Alyson Cooper Admit Provider: Julito Suarez Primary Care Provider: Quentin Sawant Other Providers: Sonia,Fax; [email or web address]; Julito Suarez; Basil Delgado; Seven Russell; Wang Hankins; Courtney Esposito; Danelle Brown Other Interventions: Discharge Summary Assessment (RN) Last Done: 08/12/23 11:00 Coding Level of Care Code 80124 INP/OBS DISCH >30 MIN Diagnoses Shock R57.9 Cardiac amyloidosis E85.4; I43 Atrial fibrillation, permanent I48.21 Central sleep apnea G47.31
--- NOTE | 2023-08-14 16:30 | Coding Query ---
DEBRIDEMENT DOCUMENTATION To promote full compliance with coding requirements relating to patient care, physician participation is requested in all cases of plumber maintenance uncertainty. Please assist us with the question(s) below: Please place an X in the parenthesis (x). If other, please document the finding: OP note stated tissue was removed . Type of Debridement: ( X) Excisional Debridement- Cutting away necrotic, devitalized tissue or slough to the level of viable tissue using a sharp instrument (i.e. scalpel, scissors, etc.) ( ) Non Excisional Debridement- The removal of necrotic, devitalized tissue or slough by means of scraping, mechanical brushing, flushing, or washing (i.e. irrigation,whirlpool);minor removal of loose fragments. ( ) Other (please specify): Instrument Used: ( ) Scissors (X ) Scalpel ( ) Curette ( ) Other (please specify): Depth of Debridement: ( ) Skin ( X) Skin and Subcutaneous Tissue ( ) Skin, Subcutaneous Tissue and Muscle ( ) Skin, Subcutaneous Tissue, Muscle and Bone ( ) Other (please specify): Please Specify the Size of Debridement in cm2: 1cm x 1.3cm x 0.8cm Thank you PAOLA Delgado CCS
--- NOTE | 2023-08-16 15:22 | Operative Report ---
Post Operative Report Pre & Post Diagnosis Operation Date: 08/09/23 15:25 Pre-Op Diagnosis: Left heel abscess Post-Op Diagnosis: Left heel abscess I identified the patient and participated in the time-out.: Yes Procedure Operation Date: 08/09/23 15:25 Actual Procedures p Left Heel Incision and Drainage(Left) - Danelle Brown DPM Surgeon Danelle Brown DPM Claim Specialist none Estimated Blood Loss 10 Findings Consistent with Post-Op Diagnosis Specimens Swab culture x2 and soft tissue culture Anesthesia Type MAC Complications none Disposition Accompanied Patient To Recovery: Yes Indications This patient is a 78-year-old male with a recent onset of left heel pain. He was admitted to the hospital for sepsis and has improved with IV antibiotics. The patient reports pain with direct pressure to his left plantar heel. A blister with surrounding erythema and edema was noted to plantar aspect of the left heel. We were consulted for evaluation and treatment of the left heel concerns. I recommended MRI evaluation prior to surgical incision and drainage of left heel abscess with deep cultures. An MRI was attempted, but due to technical issues, the MRI could not be completed. The patient elected to proceed with the planned procedures, I discussed the risks of the procedure which include, but are not limited to infection, nerve injury, non-healing wound, recurrence of the problem being treated, no improvement, failure or procedure, worsening of the problem, deep venous thrombosis, pulmonary embolism, need for further surgery, loss of limb, and loss of life. I outlined the risks, benefits and expected recovery. No guarantee or warranty was given or implied as to the results of the surgery. Patient states he understands and wants to proceed. Description of Procedure The patient was brought back into the operating and placed on the operative table in supine position. A timeout was performed in order to correctly identify the patient, planned procedure, and correct side. Following administration of IV sedation, 30 cc of 0.25% percent Marcaine plain was administered to the left ankle in an ankle block fashion under aseptic technique. The left lower extremity was then scrubbed prepped and draped in usual aseptic manner. No tourniquet was utilized. Attention was then directed to the plantar left heel at the area of the abscess. The plantar devitalized blister overlying the abscess was incised with a 15 blade. Minimal purulent exudate was drained. A swab culture was obtained. The devitalized tissue was excised and passed from the operative field. The wound was explored, and further purulent exudate was drained. A second swab culture was obtained. Approximately 5mls of purulent exudate was drained. A copious amount of saline was used to irrigate the surgical wound. After satisfactory debridement of the wound to level of subcutaneous tissue, copious amount of saline was utilized to irrigate the wound. Then a new, clean instrument was utilized to obtain a deep soft tissue wound culture that was sent for aerobic and anaerobic cultures. Again, copious amounts of saline were utilized to irrigate the surgical wound. No further purulent drainage could be identified noted. Post debridement wound measurements were 1cm x 1.3cm x 0.8cm. Minimal bleeding was noted throughout the procedure. Hemostasis was achieved with pressure. The wound was packed open with inch iodoform packing strip, Adaptic, gauze, abd pad, Kerlix, lightly applied Timothy bandage, and stockinette. Patient tolerated the procedure and anesthesia well with all signs stable and vascular status intact to the left foot. The patient was transferred to recovery for brief postoperative monitoring and will be transferred back to the floor for medical management and IV antibiotics. I will place an order for wound care consult to evaluate treat the surgical wound. I attest to the content of the Intraoperative Record and any orders documented therein. Any exceptions are noted below.
== END 2023-08-12 11:14 | DRG 853 ==
LOC: ED 11:18 → SUATTDRO 16:36 → 1E 16:36 → 2E 08-08 15:44

== ENCOUNTER 2023-09-06 15:23 | Inpatient (IN) ==
--- NOTE | 2023-09-06 15:27 | Emergency Department Note ---
Impression & Plan Acute renal failure, Ascites, FILI (acute kidney injury), Anemia, Weakness generalized ED Provider Note NAME: VICKY LEE AGE: 78 SEX: M : 1945 ARRIVES VIA: Ambulance INFORMANT: Patient, ED PROVIDER(S): Alfonso Ewing MD CHIEF COMPLAINT: Weakness, abdominal and leg swelling MEDICAL DECISION MAKING: Patient presented due to concern for worsening weakness and fatigue as well as lower extremity swelling and abdominal swelling. Patient's wraps were broken down. The patient does have a heel wound culture was taken. IV was established and blood work was obtained. Patient would like to remain a full code at this time. I did speak with the pharmacist for antibiotic initiation treatment which was ordered. Patient's blood work shows a normal white count with a hemoglobin of 7.4 which is not far off from baseline. Platelet count is unremarkable. T patient does have worsening kidney dysfunction with a creat of 3.08 which is worse from mid July when it was normal at that time. Patient does have elevated troponin and BNP. Procalcitonin elevated 1.08. Urinalysis does not show evidence of obvious infection. MRSA swab negative. I did speak with Alyson Cooper and the patient was admitted to the medicine service. Discussion w/ other healthcare providers: Dr. Cooper inpatient medicine service Prior /Outside records reviewed: I reviewed a discharge summary from Dr. Oakley from 2023. The patient had presented at that time due to concern for septic shock and associated MSSA bacteremia. Patient did require intensive care unit pressor support at that time. The patient was noted to have infection of the heel and did have this debrided. Patient did have pulmonary edema large volume ascites noted. The patient did have a paracentesis performed which was negative. No history of cardiac amyloidosis with an echocardiogram completed during this admission with an EF of 40 to 45%. Patient's tafamidis was continued. Patient was noted to be hypotensive at the initial presentation but this did not improve. Patient with known history of A-fib and is anticoagulated on apixaban Differential diagnosis: Infection, dehydration, metabolic abnormality, hypo/hyperglycemia, electrolyte imbalance, anemia, UTI, pneumonia, thyroid dysfunction among others were considered. Diagnostics, as interpreted by me: ECG: V-paced rhythm, rate 73, wide QRS lipoma branch block pattern Cardiac monitoring: An order was placed for continuous cardiac monitoring. The monitor shows a rate of 75 with paced rhythm. Patient was placed on pulse oximetry Medical decision rules: None Imaging studies: I informally interpreted the patient's Chest x-ray does not show obvious pneumothorax likely pleural effusions noted. with formal report to follow. HPI: Presents for hypotension and associated hypoxia. The patient was noted to have lower blood pressure and was given 250 cc bolus. Patient was noted to be volume overloaded. Patient denies any chest pains or shortness of breath but does have some upper abdominal pain. No vomiting. Patient reports he is compliant with his medications and is currently being treated with IV antibiotics via PICC line. Patient does have some bruising to the left chest and flank which states is chronic. Patient would currently like to be a full code. Patient denies any chest pains or shortness of breath. PAST MEDICAL HISTORY: See Below PAST SURGICAL HISTORY: See Below SOCIAL HISTORY: See Below HOME MEDICATIONS: See Below ALLERGIES: See Below VITALS: See Below PHYSICAL EXAMINATION: GENERAL: Ill in appearance, nasal cannula in place and glasses in place. EYE EXAM: Normal conjunctiva. PERRL, no anisocoria and EOM's grossly intact w/o pain. OROPHARYNX: Moist mucus membranes, grossly normal dentition. NECK: Trachea midline, no stridor. LUNGS: Diminished breath sounds bilateral bases with associated crackles. Normal chest wall mechanics. HEART: NSR, no MRG. ABDOMEN: Significant distention of the abdomen, bruising versus nonblanching erythema to the abdomen. BACK: No CVA TTP. SKIN: Nonblanching erythema noted to the abdomen. UPPER EXTREMITIES: Upper extremities are grossly normal. LOWER EXTREMITIES: Grossly normal, pitting edema noted to the bilateral lower extremities. Dressings in place to right lower extremity wounds. Open wound noted to the left heel. This probes deeply. No crepitus. NEURO EXAM: A&O x3, cranial nerves II-XII grossly intact, slurred speech, moves all 4 extremities. Past Med/Surg History Problem List (Updated 09/11/23 @ 11:53 by Alfonso Ewing MD) SBP (spontaneous bacterial peritonitis) Bacteremia due to Pseudomonas Septic shock Advanced care planning/counseling discussion Palliative care by specialist Persistent wound pain Weakness generalized (Acute) Dyspnea and respiratory abnormalities Failure to thrive syndrome, adult Sepsis Acute renal failure (Acute) Heart failure, chronic, with acute decompensation Shock Anemia (Acute) Heart failure with mid-range ejection fraction FILI (acute kidney injury) (Acute) Cardiac amyloidosis Atrial fibrillation, permanent Surgical wound, non healing (Acute) Abscess of left foot (Acute) Staphylococcus aureus bacteremia with sepsis Incontinence Ascites (Acute) Low back pain Cardiomyopathy (Acute) Heart block Medical History Sepsis Compression fracture of body of thoracic vertebra Gait disturbance Central sleep apnea Pilonidal cyst Surgical History S/P placement of cardiac pacemaker Hx laparoscopic cholecystectomy (03/11/21) Laparoscopic cholecystectomy with intraoperative cholangiogram Dr. Nunez 03-11-2021 Social History Smoking Status: Never smoker Do You Dip or Chew Tobacco: No; Hx Alcohol Use: Yes Alcohol type: wine Alcohol Intake Frequency: Monthly or Less Hx Substance Use: No Preferred Language: Ukrainian Communication Ability: Effective Visual Impairment: No Limitations Motor Vehicle Technician Required: No Beliefs That Will Affect Care: None marital status: Current Living Situation: Spouse Current Living Situation Comment: at home with current occupational status: retired How many Children do You have: 2 Feels Safe at Home: Yes Diet: low salt during the past year weight has: other Dental Care, Regularly: Yes Physical Activity Frequency: Does not Exercise Seatbelt Use: always Assistive Devices: None Allergies Allergies Allergy/AdvReac Type Severity Reaction Status Date / Time No Known Allergies Allergy Verified 09/04/23 09:09 Home Meds Home Medications Medication Instructions Recorded Confirmed tafamidis meglumine 20 mg capsule 20 mg PO DAILY 02/24/23 09/04/23 (Vyndaqel) torsemide 10 mg tablet 50 mg PO UD 06/05/23 09/04/23 spironolactone 25 mg tablet 25 mg PO UD 08/02/23 09/04/23 finasteride 5 mg tablet (Proscar) 5 mg PO DAILY 09/04/23 09/04/23 Previous Rx's Medication Instructions Recorded acetaminophen 325 mg tablet 650 mg (2 x 325 mg) PO Q4H PRN #0 08/12/23 tabs cefazolin 2 gram intravenous 2 g IV Q8H 08/12/23 solution tamsulosin 0.4 mg capsule 0.4 mg PO HS #0 caps 08/12/23 Results & Data (ED) Vital Signs Vital Signs - 24 hr 09/06/23 15:32 Pulse Rate 86 Home Medications Current Medication List: was personally reviewed by me Laboratory Data Attestation: I reviewed the patient's lab results. 09/07/23 04:49 09/07/23 04:49 Lab Results 09/06/23 09/06/23 Range/Units 16:28 17:33 Troponin I High Sens 329.2 H* (0-20) pg/ml P. aeruginosa (PCR) DETECTED A (NotDetected) blaIMP Car res Gene PCR Not Detected (NotDetected) KPC-Carbap Res Gene PCR Not Detected (NotDetected) blaNDM Car Res Gene PCR Not Detected (NotDetected) blaVIM Car Res Gene PCR Not Detected (NotDetected) CTX-M Gene Resistance (PCR) Not Detected (NotDetected) Bld Cult ID Panel PCR See PCR Comment (NotDetected) Administered Medications Hydromorphone HCl (Hydromorphone Inj 0.5 Mg/0.5 Ml Syr) 0.5 mg IV Q30M PRN PRN Reason: sev pain or dyspnea Stop: 09/20/23 22:05 Last Admin: 09/11/23 04:23 Dose: 0.5 mg Documented By: Admin: 09/10/23 21:07 Dose: 0.5 mg Documented By: Admin: 09/10/23 19:15 Dose: 0.5 mg Documented By: Admin: 09/10/23 17:46 Dose: 0.5 mg Documented By: Admin: 09/10/23 01:43 Dose: 0.5 mg Documented By: Admin: 09/09/23 21:15 Dose: 0.5 mg Documented By: TP Hydromorphone HCl (Hydromorphone Inj 0.5 Mg/0.5 Ml Syr) 0.25 mg IV Q15M PRN PRN Reason: pain.dyspnea Stop: 09/20/23 22:05 Last Admin: 09/07/23 20:37 Dose: 0.25 mg Documented By: Admin: 09/07/23 18:13 Dose: 0.25 mg Documented By: CB Hydroxyzine HCl (Hydroxyzine Hcl 25 Mg Tab) 25 mg PO Q6H PRN PRN Reason: itching or anxiety Stop: 10/11/23 10:59 Last Admin: 09/11/23 11:29 Dose: 25 mg Documented By: ONDINA Discontinued Medications Finasteride (Finasteride 5 Mg Tab) 5 mg PO DAILY [facility] Stop: 10/07/23 08:59 Last Admin: 09/07/23 08:00 Dose: 5 mg Documented By: SINTIA Furosemide (Furosemide 40 Mg/4 Ml Vial) 40 mg IV ONE ONE Stop: 09/06/23 21:38 Last Admin: 09/06/23 22:23 Dose: 40 mg Documented By: BASSAM Heparin Sodium (Porcine) (Heparin Sod 5,000 Unit/0.5 Ml Vial) 5,000 units SC BID [facility] Stop: 10/07/23 10:14 Last Admin: 09/07/23 10:52 Dose: 5,000 units Documented By: SINTIA Hydromorphone HCl (Hydromorphone Inj 0.5 Mg/0.5 Ml Syr) 0.25 mg IV Q6H PRN PRN Reason: Moderate Pain (Scale 4, 5, 6) Stop: 09/20/23 17:39 Last Admin: 09/06/23 18:58 Dose: 0.25 mg Documented By: JERARDO Hydromorphone HCl (Hydromorphone Inj 0.5 Mg/0.5 Ml Syr) 0.25 mg IV Q3H PRN PRN Reason: Moderate Pain (Scale 4, 5, 6) Stop: 09/20/23 17:39 Last Admin: 09/06/23 22:17 Dose: 0.25 mg Documented By: BASSAM Hydromorphone HCl (Hydromorphone Inj 0.5 Mg/0.5 Ml Syr) 0.5 mg IV Q3H PRN PRN Reason: Severe Pain (Scale 7, 8, 9,10) Stop: 09/20/23 17:39 Last Admin: 09/07/23 07:30 Dose: 0.5 mg Documented By: SINTIA Cefazolin Sodium (Ancef 2000mg) 2,000 mg in 15 mls @ 3.75 mls/min IV NOW STA Stop: 09/06/23 16:02 Last Admin: 09/06/23 16:32 Dose: 3.75 mls/min Documented By: JERARDO Ceftriaxone Sodium (Rocephin) 2,000 mg in 50 mls @ 100 mls/hr IV NOW ONE Stop: 09/06/23 17:59 Last Infusion: 09/06/23 18:43 Dose: Infused Documented By: Admin: 09/06/23 18:07 Dose: 100 mls/hr Documented By: SNS Norepinephrine Bitartrate (Levophed/D5w) 4 mg in 250 mls @ 0 mls/hr IV .Q0M EDUARDO; Protocol Stop: 10/06/23 20:59 Last Titration: 09/10/23 15:18 Dose: Infused Documented By: Admin: 09/09/23 16:20 Dose: Not Given Documented By: Titration: 09/09/23 15:00 Dose: 0 mcg/kg/min, 0 mls/hr Documented By: Admin: 09/09/23 08:43 Dose: Not Given Documented By: Admin: 09/09/23 08:42 Dose: Not Given Documented By: Admin: 09/09/23 08:42 Dose: Not Given Documented By: Admin: 09/09/23 08:42 Dose: Not Given Documented By: Admin: 09/09/23 08:19 Dose: 0.04 mcg/kg/min, 13.7 mls/hr Documented By: ES Co-signed By: WRS Titration: 09/09/23 08:19 Dose: Infused Documented By: ES Co-signed By: WRS Admin: 09/08/23 20:40 Dose: 0.06 mcg/kg/min, 20.5 mls/hr Documented By: TP Co-signed By: CLC Titration: 09/08/23 20:40 Dose: Infused Documented By: TP Co-signed By: CLC Titration: 09/08/23 19:00 Dose: 0.06 mcg/kg/min, 20.5 mls/hr Documented By: TDT Co-signed By: TP Admin: 09/08/23 09:32 Dose: 0.06 mcg/kg/min, 20.5 mls/hr Documented By: TDT Co-signed By: ES Titration: 09/08/23 09:32 Dose: Infused Documented By: TDT Co-signed By: ES Titration: 09/08/23 07:03 Dose: 0.06 mcg/kg/min, 20.5 mls/hr Documented By: TDT Co-signed By: TP Admin: 09/07/23 23:13 Dose: 0.06 mcg/kg/min, 20.5 mls/hr Documented By: TP Co-signed By: ELS Titration: 09/07/23 23:13 Dose: Infused Documented By: TP Co-signed By: ELS Titration: 09/07/23 19:04 Dose: 0.06 mcg/kg/min, 20.5 mls/hr Documented By: TP Co-signed By: CB Titration: 09/07/23 16:30 Dose: 0.06 mcg/kg/min, 20.5 mls/hr Documented By: Titration: 09/07/23 16:00 Dose: 0.04 mcg/kg/min, 13.7 mls/hr Documented By: Admin: 09/07/23 13:12 Dose: Not Given Documented By: Admin: 09/07/23 13:00 Dose: Not Given Documented By: Titration: 09/07/23 13:00 Dose: 0.06 mcg/kg/min, 20.5 mls/hr Documented By: Titration: 09/07/23 11:39 Dose: Infused Documented By: CB Co-signed By: WS Admin: 09/07/23 11:39 Dose: 0.08 mcg/kg/min, 27.3 mls/hr Documented By: CB Co-signed By: WS Titration: 09/07/23 11:00 Dose: 0.08 mcg/kg/min, 27.3 mls/hr Documented By: Admin: 09/07/23 09:19 Dose: Not Given Documented By: Titration: 09/07/23 09:12 Dose: 0.12 mcg/kg/min, 41 mls/hr Documented By: Admin: 09/07/23 08:09 Dose: Not Given Documented By: Titration: 09/07/23 08:00 Dose: 0.14 mcg/kg/min, 47.8 mls/hr Documented By: Titration: 09/07/23 07:30 Dose: 0.12 mcg/kg/min, 41 mls/hr Documented By: Titration: 09/07/23 07:03 Dose: 0.1 mcg/kg/min, 34.2 mls/hr Documented By: CP Co-signed By: CB Admin: 09/07/23 05:55 Dose: 0.1 mcg/kg/min, 34.2 mls/hr Documented By: BASSAM Co-signed By: [id number] Titration: 09/07/23 05:55 Dose: Infused Documented By: CP Co-signed By: [id number] Titration: 09/07/23 00:47 Dose: 0.1 mcg/kg/min, 34.2 mls/hr Documented By: Admin: 09/06/23 21:12 Dose: 0.05 mcg/kg/min, 17.1 mls/hr Documented By: BASSAM Co-signed By: MICHELE Piperacillin Sod/Tazobactam (Sod 4.5 gm/ Dextrose) 100 mls @ 25 mls/hr IV Q8H EDUARDO; Protocol Stop: 09/09/23 03:59 Last Infusion: 09/07/23 09:12 Dose: Infused Documented By: Infusion: 09/07/23 08:30 Dose: 0 mls/hr Documented By: Infusion: 09/07/23 08:29 Dose: 0 mls/hr Documented By: Admin: 09/07/23 04:58 Dose: 25 mls/hr Documented By: BASSAM Daptomycin 500 mg/ Syringe 10 mls @ 5 mls/min IV Q48H EDUARDO; Protocol Stop: 09/08/23 21:29 Last Admin: 09/06/23 22:17 Dose: 5 mls/min Documented By: BASSAM Piperacillin Sod/Tazobactam (Sod 4.5 gm/ Dextrose) 100 mls @ 200 mls/hr IV NOW ONE; Protocol Stop: 09/06/23 21:59 Last Infusion: 09/06/23 23:01 Dose: Infused Documented By: Admin: 09/06/23 22:28 Dose: 200 mls/hr Documented By: BASSAM Albumin Human (Albumin 25%) 12.5 gm in 50 mls @ 50 mls/hr IV Q1H EDUARDO Stop: 09/07/23 15:29 Last Infusion: 09/07/23 15:14 Dose: Infused Documented By: Admin: 09/07/23 14:05 Dose: 50 mls/hr Documented By: Infusion: 09/07/23 14:04 Dose: Infused Documented By: Admin: 09/07/23 13:04 Dose: 50 mls/hr Documented By: Infusion: 09/07/23 13:01 Dose: Infused Documented By: Admin: 09/07/23 12:01 Dose: 50 mls/hr Documented By: Infusion: 09/07/23 12:01 Dose: Infused Documented By: Admin: 09/07/23 11:04 Dose: 50 mls/hr Documented By: Infusion: 09/07/23 11:04 Dose: Infused Documented By: Admin: 09/07/23 10:52 Dose: 50 mls/hr Documented By: Infusion: 09/07/23 10:01 Dose: Infused Documented By: Admin: 09/07/23 09:01 Dose: 50 mls/hr Documented By: Infusion: 09/07/23 09:01 Dose: Infused Documented By: Admin: 09/07/23 08:33 Dose: 50 mls/hr Documented By: SINTIA Ceftriaxone Sodium (Rocephin) 2,000 mg in 50 mls @ 100 mls/hr IV Q24H EDUARDO Stop: 09/17/23 11:59 Last Infusion: 09/07/23 12:13 Dose: Infused Documented By: Admin: 09/07/23 11:39 Dose: 100 mls/hr Documented By: CB Metronidazole (Flagyl) 500 mg in 100 mls @ 100 mls/hr IV Q8H EDUARDO Stop: 09/17/23 11:59 Last Infusion: 09/07/23 12:56 Dose: Infused Documented By: Admin: 09/07/23 11:39 Dose: 100 mls/hr Documented By: SINTIA Parenteral Electrolytes (Plasma-Lyte A Ph 7.4) 500 mls @ 100 mls/hr IV .Q5H EDUARDO Stop: 09/07/23 16:29 Last Infusion: 09/07/23 16:46 Dose: Infused Documented By: Admin: 09/07/23 11:39 Dose: 100 mls/hr Documented By: SINTIA Piperacillin Sod/Tazobactam (Sod 4.5 gm/ Dextrose) 100 mls @ 25 mls/hr IV Q12H EDUARDO; Protocol Stop: 09/21/23 16:59 Last Admin: 09/10/23 04:36 Dose: Not Given Documented By: Admin: 09/09/23 09:15 Dose: Not Given Documented By: Admin: 09/09/23 06:09 Dose: Not Given Documented By: Admin: 09/08/23 16:42 Dose: Not Given Documented By: Infusion: 09/08/23 09:16 Dose: Infused Documented By: Admin: 09/08/23 05:11 Dose: 25 mls/hr Documented By: Infusion: 09/07/23 20:05 Dose: Infused Documented By: Admin: 09/07/23 16:05 Dose: 25 mls/hr Documented By: SINTIA Bumetanide 3 mg/ Syringe 12 mls @ 4 mls/min IV TODAY@1630 ONE Stop: 09/07/23 16:32 Last Admin: 09/07/23 16:04 Dose: 4 mls/min Documented By: SINTIA Parenteral Electrolytes (Plasma-Lyte A Ph 7.4) 1,000 mls @ 75 mls/hr IV .[id number] EDUARDO Stop: 10/07/23 03:00 Last Infusion: 09/10/23 15:18 Dose: Infused Documented By: Admin: 09/10/23 09:32 Dose: 75 mls/hr Documented By: Infusion: 09/10/23 09:32 Dose: Infused Documented By: Admin: 09/09/23 21:15 Dose: 75 mls/hr Documented By: Infusion: 09/09/23 21:15 Dose: Infused Documented By: Admin: 09/09/23 08:19 Dose: 75 mls/hr Documented By: Infusion: 09/09/23 08:19 Dose: Infused Documented By: Admin: 09/09/23 00:53 Dose: 100 mls/hr Documented By: Infusion: 09/08/23 23:57 Dose: Infused Documented By: Admin: 09/08/23 13:57 Dose: 100 mls/hr Documented By: Infusion: 09/08/23 13:57 Dose: Infused Documented By: Admin: 09/08/23 05:12 Dose: 100 mls/hr Documented By: Infusion: 09/08/23 03:49 Dose: Infused Documented By: Admin: 09/07/23 17:49 Dose: 100 mls/hr Documented By: SINTIA Midodrine (Midodrine Hcl 2.5 Mg Tab) 5 mg PO TID@0800,1200,1700 EDUARDO Stop: 10/07/23 07:59 Last Admin: 09/07/23 16:05 Dose: 5 mg Documented By: Admin: 09/07/23 12:03 Dose: 5 mg Documented By: Admin: 09/07/23 07:30 Dose: 5 mg Documented By: SINTIA Midodrine (Midodrine Hcl 2.5 Mg Tab) 5 mg PO NOW ONE Stop: 09/06/23 17:31 Last Admin: 09/06/23 18:13 Dose: Not Given Documented By: JERARDO Miscellaneous (Icu Protocol For Hyperglycemia) 1 each N/A ACHS EDUARDO Stop: 09/08/23 20:59 Last Admin: 09/07/23 16:44 Dose: Not Given Documented By: Admin: 09/07/23 12:03 Dose: Not Given Documented By: Admin: 09/07/23 07:53 Dose: Not Given Documented By: Admin: 09/06/23 20:26 Dose: Not Given Documented By: BASSAM Imaging Data Radiologist's Impression: Chest X-Ray 09/06/23 15:41 XR chest 1V portable CLINICAL HISTORY: Sepsis. COMPARISON STUDY: Chest CT July 2023. Chest radiograph August 04, 2023. FINDINGS: Right PICC and left subclavian pacer remain in place. A skin folds projects over the right chest. There is no pneumothorax. Patient is rotated. Cardiomegaly is noted. There is pulmonary vascular congestion. Left basilar opacity is similar to prior exam. There may be a small to moderate left pleural effusion. IMPRESSION: 1. Cardiomegaly and pulmonary vascular congestion. 2. Persistent left basilar opacity which could reflect pneumonia or atelectasis. Radiographic follow-up to ensure resolution is recommended. 3. Suspected small to moderate left pleural effusion. ACT 112: Negative or not required by law. Electronically signed by: Joshua Piña M.D. 09/06/2023 4:59 PM Discharge Plan Visit Data Chief Complaint: Shortness of Breath/Dyspnea Stated Complaint: SOB, hypotension, end of life ED Provider: Alfonso Ewing Discharge Problem: Acute renal failure, Ascites, FILI (acute kidney injury), Anemia, Weakness generalized Patient Disposition: Admitted As Inpatient Discharge Instructions Interventions: ED Discharge Assessment Last Done: 09/06/23 19:13 Discharge Problem: Acute renal failure Qualifiers: Acute renal failure type: unspecified Qualified Code(s): N17.9 - Acute kidney failure, unspecified Anemia Qualifiers: Anemia type: unspecified type Qualified Code(s): D64.9 - Anemia, unspecified
[2023-09-06 15:58] LABS: Hematocrit (blood only) 21.8 % (42.0-52.0); Hemoglobin 7.4 g/dl (14.0-18.0); Mean Corpuscular Hemoglobin 33.3 pg (25.0-34.0); Mean Corpuscular Hgb Conc 33.9 g/dL (32.0-36.0); Mean Corpuscular Volume 98.2 fL (80.0-100.0); Mean Platelet Volume 10.5 fL (9.4-12.4); Platelet Count 245 K/uL (130-400); RDW Coefficient of Variation 16.4 % (11.5-14.5); RDW Standard Deviation 57.6 fL (36.4-46.3); Red Blood Count 2.22 M/uL (4.70-6.10); White Blood Count 7.18 K/ul (4.8-10.8)
[2023-09-06 16:19] LABS: Anion Gap 10 (3-11); Blood Urea Nitrogen 114 mg/dl (6-23); Calcium 9.3 mg/dl (8.6-10.3); Carbon Dioxide 23 mmol/L (21-32); Chloride 105 mmol/L (98-107); Creatinine Clr Calc Pharmacy 23.3 ml/min; Est GFR (African American) 21.1 ml/min; Est GFR (Non-African American) 18.2 ml/min; Glucose 77 mg/dl (70-99(Fasting)); Potassium 4.5 mmol/L (3.5-5.1); Sodium 138 mmol/L (136-145)
[2023-09-06 16:21] LABS: Basophils # (auto) 0.01 K/uL (0.00-0.20); Basophils % (auto) 0.1 %; Immature Granulocytes # (auto) 0.03 K/uL (0.01-0.20); Immature Granulocytes % (auto) 0.4 %; Lymphocytes # (auto) 0.37 K/uL (1.20-3.40); Lymphocytes % (auto) 5.2 %; Monocytes # (auto) 0.26 K/uL (0.11-0.59); Monocytes % (auto) 3.6 %; Neutrophils # (auto) 6.51 K/uL (1.40-6.50); Neutrophils % (auto) 90.7 %
[2023-09-06] MEDS: ceFAZolin 2000MG 2,000 MG/15 ML SYR IV STA (16:32)
[2023-09-06 16:33] LABS: Alanine Aminotransferase < 3 U/L (7-52); Alkaline Phosphatase 171 U/L (34-104); Aspartate Aminotransferase 19 U/L (13-39); Bilirubin Direct 0.6 mg/dl (0-0.2); Bilirubin,Total 1.1 mg/dl (0.2-1.0); Magnesium 2.3 mg/dl (1.7-2.4); Total Protein 6.7 gm/dl (6.0-8.3); Troponin I High Sensitivity 326.9 pg/ml (0-20)
--- NOTE | 2023-09-06 17:01 | XRay Report ---
XR chest 1V portable CLINICAL HISTORY: Sepsis. COMPARISON STUDY: Chest CT July 2023. Chest radiograph August 04, 2023. FINDINGS: Right PICC and left subclavian pacer remain in place. A skin folds projects over the right chest. There is no pneumothorax. Patient is rotated. Cardiomegaly is noted. There is pulmonary vascul ar congestion. Left basilar opacity is similar to prior exam. There may be a small to moderate left p leural effusion. IMPRESSION: 1. Cardiomegaly and pulmonary vascular congestion. 2. Persistent left basilar opacity which could reflect pneumonia or atelectasis. Radiographic follow- up to ensure resolution is recommended. 3. Suspected small to moderate left pleural effusion. ACT 112: Negative or not required by law. Electronically signed by: Joshua Piña M.D. 09/06/2023 4:59 PM
[2023-09-06] MEDS ORDERED: HYDROmorphone INJ 0.5 MG/0.5 ML SYR IV PRN (17:40)
--- NOTE | 2023-09-06 17:47 | Electrocardiogram Report ---
Test Reason : Blood Pressure : / mmHG Vent. Rate : 073 BPM Atrial Rate : 071 BPM P-R Int : 000 ms QRS Dur : 162 ms QT Int : 538 ms P-R-T Axes : 000 -78 092 degrees QTc Int : 592 ms Ventricular-paced rhythm with occasional , and consecutive Premature ventricular complexes Abnormal ECG When compared with ECG of 02-AUG-2023 11:32, Premature ventricular complexes are now Present Vent. rate has decreased BY 4 BPM Confirmed by Cody Justice ([id number]) on 09/06/2023 5:47:04 PM Referred By: Confirmed By:Nba Justice
[2023-09-06 18:00] LABS: INR 1.4 (0.9-1.1); Partial Thromboplastin Ratio 1.3; Partial Thromboplastin Time 34 Seconds (21-31); Prothrombin Time 14.9 Seconds (9.0-12.0)
[2023-09-06] MEDS: cefTRIAXone SODIUM 2,000 MG/50 ML BAG IV ONE (18:07)
[2023-09-06] MEDS: MIDODRINE HCL 2.5 MG TAB PO ONE (18:07)
[2023-09-06 18:31] LABS: Appearance Urine Cloudy (Clear); Bacteria Urine Automated None Seen (None Seen); Bilirubin Urine Negative (Negative); Blood Urine Trace (Negative); Color Urine Yellow; Glucose Urine UA Negative (Negative); Ketones Urine Trace (Negative); Leukocyte Esterase Urine Trace (Negative); Nitrite Urine Negative (Negative); Protein Urine 2+ (Negative); Specific Gravity Urine 1.022 (1.000-1.030); Urobilinogen Urine Negative (Negative); WBC Urine Automated 0-5 /hpf (0-5)
--- NOTE | 2023-09-06 18:36 | History & Physical Report ---
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 Admitted with hypotension, anasarca, volume overload on exam and FILI. Pres entation most consistent with cardiorenal failure related to decompensation of his HFmEF related to amyloidosis - which if true, carries a grave prognosis. Considering sepsis/infection but appears unlikely. No fever, leukocytosis, focal symptoms, procalcitonin negative - workup still in progress. Also considering other causes of renal failure for example obstructive (whitman placed) or prerenal from volume depletion, which seems unlikely. -admit to ICU since hypotensive regarding probable cardiorenal failure (acute on chronic HFmEF and FILI on stage 2 CKD) -check BNP, Echo in AM to reassess EF and volume status -mild troponin elevation is likely related to demand ischemia rather than ACS. monitor serial troponin. EKG tracing reviewed and is paced with PVC -hold off on further IV fluids, diet as tolerated with antiemetics prn, trial midodrine -hold oral diuretic and ARB. consider trial of IV diuretics -consider transfusion - may improve his cardiac and renal function and may make him feel better, setting goal Hg of 8 -placed whitman catheter, monitor UOP. check UA for sediment -AM CBC and CMP -formal cardiology consult in AM, discussed with Dr. Torres who saw him tonight regarding potential sepsis/infection -relatively asymptomatic from this trial oral midodrine -UA pending, wound and blood cultures pending (has RUE PICC so line infection possible), paracentesis pending - start ceftriaxone which will cover his MSSA and skin pathogens as well as SBP or UTI -MRSA nares, repeat procal in AM -can broaden antibiotics and consider pressors if that remains within his goals of care -paracentesis diagnostic and therapeutic nausea -probably multifactorial related to pressure from ascites, uremia, heart failure -as above, PRN ondansetron atrial fibrillation - rate acceptable extensive ecchymoses -apixaban stopped previously -check PTT and INR central sleep apnea - continue nocturnal CPAP malnutrition - consult RD dvt prophylaxis - low dose apixaban or SQ heparin if PTT/INR not elevated goals of care - overall prognosis is very poor from his cardiac disease and comorbidities, and even short term improvement may not be possible if this is cardiorenal failure. earlier today was planning comfort measures, which would be appropriate in this setting. currently has requested full treatment. will try to treat what we can, especially to improve his comfort and respect his wishes with the understanding that aggressive interventions such as dialysis, mechanical ventilation, CPR would not meaningfully prolong his life. Dr. Torres has also discussed this extensively with his and family, who are in understanding. History of Present Illness Chief Complaint: Primary Care Provider: MD Dr. 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 At this time has completed nearly all of a 6 week course of cefazolin for the bacteremia - extended course because of presence of pacemaker leads. He returned home from [facility] late last week and feels that he initially did very well at home, was feeling good and was eating well. He had bilateral steroid injections for his shoulders by outpatient ortho. He has had a steady decline since Monday. Has had nausea, poor oral intake, malaise. Dr. Torres visited him at home, noted hypotension, progressive anasarca, worsening of anemia with Hg 7.8 and worsening renal failure with BUN/Cr to 104/2.7. He refused to come to the hospital, stated "I'm dying" Was feeling terrible overnight, not sleeping, nausea. Planned for admission for comfort measures today, however, once in the ED he requested full code and full treatment measures. Main point of discomfort currently is he feels like he needs to urinate but cannot and has not urinated all day. Currently denies dyspnea and chest pain. Back pain is at baseline and left heel wound is not worse wrt drainage or pain. No fevers/chills. He has upper abdominal/rib discomfort which he attributes to therapist pulling on a gait belt. There is significant ecchymosis of abdominal wall which he and his state has been present for some time (since he was in rehab). He is no longer taking apixaban. Allergies Allergy/AdvReac Type Severity Reaction Status Date / Time No Known Allergies Allergy Verified 09/04/23 09:09 Home Medications Medication Instructions Recorded Confirmed Type tafamidis meglumine 20 mg capsule 20 mg PO DAILY 02/24/23 09/04/23 History (Vyndaqel) torsemide 10 mg tablet 50 mg PO UD 06/05/23 09/04/23 History spironolactone 25 mg tablet 25 mg PO UD 08/02/23 09/04/23 History acetaminophen 325 mg tablet 650 mg (2 x 325 mg) PO Q4H PRN #0 08/12/23 09/04/23 Rx tabs cefazolin 2 gram intravenous 2 g IV Q8H 08/12/23 09/04/23 Rx solution tamsulosin 0.4 mg capsule 0.4 mg PO HS #0 caps 08/12/23 09/04/23 Rx finasteride 5 mg tablet (Proscar) 5 mg PO DAILY 09/04/23 09/04/23 History Past Med/Surg History Problem List (Updated 09/06/23 @ 18:47 by Alyson Cooper MD) Anemia Heart failure with mid-range ejection fraction FILI (acute kidney injury) Cardiac amyloidosis Atrial fibrillation, permanent Surgical wound, non healing (Acute) Abscess of left foot (Acute) Staphylococcus aureus bacteremia with sepsis Incontinence Ascites Low back pain Cardiomyopathy (Acute) Heart block Medical History Septic shock Anemia Sepsis FILI (acute kidney injury) Compression fracture of body of thoracic vertebra Heart failure with mid-range ejection fraction Gait disturbance Central sleep apnea Pilonidal cyst Surgical History S/P placement of cardiac pacemaker Hx laparoscopic cholecystectomy (03/11/21) Laparoscopic cholecystectomy with intraoperative cholangiogram Dr. Nunez 03-11-2021 Social History Smoking Status: Never smoker Hx Alcohol Use: Yes Alcohol type: wine Alcohol Intake Frequency: Monthly or Less Hx Substance Use: No Preferred Language: Jordanian Communication Ability: Effective Visual Impairment: No Limitations [employer] Lunchroom Supervisor Required: No Beliefs That Will Affect Care: None marital status: Current Living Situation: Spouse current occupational status: retired How many Children do You have: 2 Feels Safe at Home: Yes Diet: low salt during the past year weight has: other Dental Care, Regularly: Yes Physical Activity Frequency: Does not Exercise Seatbelt Use: always Assistive Devices: Glasses, Hospital Bed, Walker and Wheelchair Physical Exam Physical Exam: PHYSICAL EXAMINATION current vital signs reviewed, notable for hypotension with blood pressure in 80s/60s General: mildly uncomfortable appearing, no distress. cachectic and frail- appearing HEENT: Normocephalic, atraumatic, pupils round and equal, sclerae anicteric, no conjunctival injection, moist mucus membranes Lungs: Normal respiratory effort. Clear to auscultation bilaterally. No RRW Heart: Regular rate and rhythm, no murmurs. neck veins are distended Abdomen: Soft, distended with large ascites but not quite tense. nontender no rebound rigidity or guarding. Bowel sounds present. old appearing ecchymosis which is extensive especially left side of chest and upper abdominal wall Extremities: Warm, edematous. anasarca present. left heel wound currently dressed. multiple ecchymoses and minor skin abrasions Neuro: Alert and oriented x 4, hard of hearing, face symmetric, moves 4 extremities equally Psych: Normal affect and behavior Results & Data Results & Data Vital Signs (Past 12 Hours) Vital Signs Temp Pulse Pulse Resp BP BP Pulse Ox 09/06/23 17:45 58 L 16 90/63 L 96 09/06/23 17:00 64 16 86/65 L 96 09/06/23 16:45 60 16 87/62 L 95 09/06/23 16:15 60 16 88/63 L 91 09/06/23 16:01 60 16 88/63 L 90 09/06/23 15:41 65 18 92 09/06/23 15:35 95 09/06/23 15:35 36.6 C 74 16 94/75 L 95 09/06/23 15:32 86 O2 Del Method O2 Flow Rate 09/06/23 17:45 Nasal Cannula 1 09/06/23 17:00 Room Air 09/06/23 16:45 Nasal Cannula 2 09/06/23 16:15 Nasal Cannula 2 09/06/23 16:01 Room Air 09/06/23 15:41 Room Air 09/06/23 15:35 Room Air 09/06/23 15:35 Room Air 09/06/23 15:32 Laboratory Results 09/06/23 09/06/23 Range/Units Unknown 17:33 WBC 7.18 (4.8-10.8) K/ul RBC 2.22 L (4.70-6.10) M/uL Hgb 7.4 L (14.0-18.0) g/dl Hct 21.8 L (42.0-52.0) % MCV 98.2 (80.0-100.0) fL MCH 33.3 (25.0-34.0) pg MCHC 33.9 (32.0-36.0) g/dL RDW Std Deviation 57.6 H (36.4-46.3) fL RDW Coeff of Mariel 16.4 H (11.5-14.5) % Plt Count 245 (130-400) K/uL MPV 10.5 (9.4-12.4) fL Immature Gran % (Auto) 0.4 % Neut % (Auto) 90.7 % Lymph % (Auto) 5.2 % Calhoun % (Auto) 3.6 % Eos % (Auto) 0.0 % Baso % (Auto) 0.1 % Neut # (Auto) 6.51 H (1.40-6.50) K/uL Lymph # (Auto) 0.37 L (1.20-3.40) K/uL Calhoun # (Auto) 0.26 (0.11-0.59) K/uL Eos # (Auto) 0.00 (0.00-0.50) K/uL Baso # (Auto) 0.01 (0.00-0.20) K/uL Immature Gran # (Auto) 0.03 (0.01-0.20) K/uL PT 14.9 H (9.0-12.0) Seconds INR 1.4 H (0.9-1.1) APTT 34 H (21-31) Seconds PTT Ratio 1.3 Sodium 138 (136-145) mmol/L Potassium 4.5 (3.5-5.1) mmol/L Chloride 105 (98-107) mmol/L Carbon Dioxide 23 (21-32) mmol/L Anion Gap 10 (3-11) BUN 114 H (6-23) mg/dl Creatinine 3.08 H (0.6-1.4) mg/dl Est Cr Clr Drug Dosing 23.3 ml/min Est GFR ( Amer) 21.1 ml/min Est GFR (Non-Af Amer) 18.2 ml/min BUN/Creatinine Ratio 37.0 H (10-20) Glucose 77 (70-99(Fasting)) mg/dl Lactate 1.3 (0.4-2.0) mmol/L Calcium 9.3 (8.6-10.3) mg/dl Magnesium 2.3 (1.7-2.4) mg/dl Total Bilirubin 1.1 H (0.2-1.0) mg/dl Direct Bilirubin 0.6 H (0-0.2) mg/dl AST 19 (13-39) U/L ALT < 3 L (7-52) U/L Alkaline Phosphatase 171 H (34-104) U/L Troponin I High Sens 326.9 H* 329.2 H* (0-20) pg/ml Total Protein 6.7 (6.0-8.3) gm/dl Albumin 3.0 L (3.4-5.0) gm/dl Procalcitonin 1.08 H (0-0.5) ng/ml Urine Color Pending Urine Appearance Pending Urine pH Pending Ur Specific Brogue Pending Urine Protein Pending Urine Glucose (UA) Pending Urine Ketones Pending Urine Blood Pending Urine Nitrite Pending Urine Bilirubin Pending Urine Urobilinogen Pending Ur Leukocyte Esterase Pending Diagnostic Findings Chest X-Ray 09/06/23 15:41 XR chest 1V portable CLINICAL HISTORY: Sepsis. COMPARISON STUDY: Chest CT July 2023. Chest radiograph August 04, 2023. FINDINGS: Right PICC and left subclavian pacer remain in place. A skin folds p rojects over the right chest. There is no pneumothorax. Patient is rotated. Cardiomegaly is noted. There is pulmonary vascular congestion. Left basilar opacity is similar to prior exam. There may be a small to moderate left pleural effusion. IMPRESSION: 1. Cardiomegaly and pulmonary vascular congestion. 2. Persistent left basilar opacity which could reflect pneumonia or atelectasis. Radiographic follow-up to ensure resolution is recommended. 3. Suspected small to moderate left pleural effusion. ACT 112: Negative or not required by law. Electronically signed by: Joshua Piña M.D. 09/06/2023 4:59 PM Medications Administered cefazolin 2 g 250 mL IV fluids by medics Code Status & VTE Plan Code Status requested full code/full treatment in ED VTE Prophylaxis Plan VTE Prophylaxis will be ordered: Yes PG Care Time/CCT Total # of Minutes Spent Total Time Spent with Patient: Total time spent is greater than 50% in coordination of care (as documented) at patient's floor/unit and/or counseling patient: Coding Level of Care Code 68401 INT INP/OBS CARE 3/75MIN Diagnoses Hypotension I95.9 Hypotension type: unspecified hypotension type FILI (acute kidney injury) N17.9 Heart failure with mid-range ejection fraction I50.22 Anemia D64.9 Elevated troponin R79.89 Atrial fibrillation, permanent I48.21 Cardiac amyloidosis E85.4; I43 (1) Hypotension Hypotension type: unspecified hypotension type Qualified Code(s): I95.9 - Hypotension, unspecified
[2023-09-06] MEDS: HYDROmorphone INJ 0.5 MG/0.5 ML SYR IV PRN ×2 (18:58→22:17)
[2023-09-06] MEDS ORDERED: ONDANSETRON INJ 2 MG/ML 2 ML VIAL IV PRN (20:06)
[2023-09-06] MEDS ORDERED: IPRATROPIUM BROMIDE NEB SOLN 0.02% 0.5MG/2.5ML VIAL INH PRN (20:06)
[2023-09-06] MEDS: ICU Protocol for HYPERglycemia SCH (20:26)
[2023-09-06] MEDS ORDERED: STAT IV Infusion **Titration per Protocol STA (20:47)
--- NOTE | 2023-09-06 20:56 | Critical Care Consultation ---
Date of Consultation September 06, 2023 Assessment & Plan (1) Shock: Reason Critically Ill: 78-year-old male with past medical history significant for cardiac amyloidosis, HFrEF, chronic ascites, and recent admission for MSSA bacteremia presents to the ICU with acute renal failure, decompensated heart failure, and possible underlying sepsis with shock requiring vasopressor support. Neuro - [facility] ICU: Negative Cardiac - Shockexpect this is likely mixed etiology with acute decompensated heart failure and possible underlying sepsis. - See ID for management of sepsis below - Vasopressor support with Levophed drip to maintain MAP greater than 75 given suspicion of Cardiorenal syndrome - Careful with fluid resuscitation given volume overload -Hold antihypertensives - Random cortisol pending -Follow-up repeat TTE - Cardiology consulted - Continuous monitor on telemetry Respiratory - No history of pulmonary disease. Slightly hypoxic requiring nasal cannula. -Chest x-ray with cardiomegaly and pulmonary vascular congestion, small left pleural effusion and persistent left basilar opacity. - Will attempt diuresis -Nebs as needed - Continuous monitoring on pulse ox. Wean oxygen as tolerated GI - N.p.o. for now Ascites due to underlying heart failure versus acute renal failure. Will likely need paracentesis RENAL/LYTES - Acute renal failurelikely prerenal in the setting of sepsis/hypotension versus cardiorenal syndrome - Starting Levophed to maintain MAP greater than 75 - Will hold on fluid resuscitation getting significant volume overload -Consult nephrology - Will attempt trial Lasix after MAP greater than 75 -Monitor routine BMPs - Foleystrict I's and O's ENDO - No history of diabetes or thyroid disease. ICU hyperglycemic protocol HEME - Anemiahemoglobin 7.3, Will hold on transfusion for the time being as patient is significantly volume overloaded with decompensated heart failure. Trend H&H ID - Sepsisunsure of source at this time. Patient did recently undergo 6 weeks treatment with cefazolin for MSSA Bacteremia - No leukocytosis, Hypothermic, Pro-Anil elevated -Nasal MRSA negative -Blood cultures and urine culture pending - Continue broad-spectrum antibiotics for now with Zosyn, daptomycin LINES/IV ACCESS - PICC DVT PROPHYLAXIS - SCDs, Hold anticoagulation for now as patient will likely need paracentesis Dispositionpatient appears to be end-stage with multisystem organ failure. Was initially brought to emergency department with plan to be admitted for comfort measures, but now pursuing full medical measures and full code. Prognosis remains extremely poor. Will likely benefit from palliative consult. I have personally spent 47 minutes of critical care time in the direct management of this patient. This is a life/limb threatening event. This includes time spent evaluating patient, direct bedside care, chart review, placing orders, interpretation of diagnostic studies, discussion with consultants, patient, and family members, as well as other required patient management activities. This time is exclusive of all separately billable procedures, and teaching time and separate from and in addition to any other critical care service time. Thank you for allowing us to participate in the care of this patient. Please refer to my attending physician's documentation for any further recommendations. (2) Heart failure, chronic, with acute decompensation: (3) Acute renal failure: (4) Cardiac amyloidosis: (5) Atrial fibrillation, permanent: (6) Ascites: (7) Sepsis: (8) Failure to thrive syndrome, adult: History of Present Illness Attending Physician: Alyson Cooper MD History of Present Illness Patient is a 78-year-old male with past medical history significant for Cardiac amyloidosis, HFrEF, chronic ascities, malnutrition, permanent A-fib, abscess of left foot, and recent admission for MSSA bacteremia. Patient had been discharged to [facility] and returned home last week, but has had decline since Monday with nausea, malaise, and poor intake. At home he was noted to be hypotensive and presented to the emergency department. He initially planned to be hospitali [facility] for comfort measures, however upon evaluation in the emergency department patient requested full code and full treatment measures. He appears to have decompensated heart failure with anasarca and worsening ascites, is hypotensive and hypothermic, and currently in acute renal failure With possible cardiorenal syndrome. He is now being admitted to ICU for further management at this time. Allergies Allergy/AdvReac Type Severity Reaction Status Date / Time No Known Allergies Allergy Verified 09/04/23 09:09 Home Medications Medication Instructions Recorded Confirmed Type tafamidis meglumine 20 mg capsule 20 mg PO DAILY 02/24/23 09/04/23 History (Vyndaqel) torsemide 10 mg tablet 50 mg PO UD 06/05/23 09/04/23 History spironolactone 25 mg tablet 25 mg PO UD 08/02/23 09/04/23 History acetaminophen 325 mg tablet 650 mg (2 x 325 mg) PO Q4H PRN #0 08/12/23 09/04/23 Rx tabs cefazolin 2 gram intravenous 2 g IV Q8H 08/12/23 09/04/23 Rx solution tamsulosin 0.4 mg capsule 0.4 mg PO HS #0 caps 08/12/23 09/04/23 Rx finasteride 5 mg tablet (Proscar) 5 mg PO DAILY 09/04/23 09/04/23 History Patient History Medical History Septic shock Anemia Sepsis FILI (acute kidney injury) Compression fracture of body of thoracic vertebra Heart failure with mid-range ejection fraction Gait disturbance Central sleep apnea Pilonidal cyst Surgical History S/P placement of cardiac pacemaker Hx laparoscopic cholecystectomy (03/11/21) Laparoscopic cholecystectomy with intraoperative cholangiogram Dr. Nunez 03-11-2021 Social History Smoking Status: Never smoker Do You Dip or Chew Tobacco: No; Hx Alcohol Use: Yes Alcohol type: wine Alcohol Intake Frequency: Monthly or Less Hx Substance Use: No Preferred Language: Setswana Communication Ability: Effective Visual Impairment: No Limitations Appetizer Packer Required: No Beliefs That Will Affect Care: None marital status: Current Living Situation: Spouse Current Living Situation Comment: at home with current occupational status: retired How many Children do You have: 2 Feels Safe at Home: Yes Diet: low salt during the past year weight has: other Dental Care, Regularly: Yes Physical Activity Frequency: Does not Exercise Seatbelt Use: always Assistive Devices: Cane and Glasses Review of Systems Review of Systems: Patient reports shortness of breath with activity, progressive swelling in the abdomen and lower extremities, and abdominal pain with nausea. He denies any headache, dizziness, changes in vision, sore throat or congestion, cough, chest pain or palpitations. Physical Exam Constitutional: + frail appearing and + lethargic Eyes: PERRL, conjunctivae normal, anicteric sclerae ENMT: external ear and nose normal, oropharynx normal Neck: trachea midline, no thyromegaly Respiratory: normal respiratory effort, lungs clear to auscultation Cardiovascular: Paced rhythm, positive murmur, positive JVD, anasarca with +4 lower extremity edema. Gastrointestinal (Abdomen): Abdomen semifirm, distended, tender. Bowel sounds present all 4 quadrants Musculoskeletal: Generalized muscular atrophy. No musculoskeletal deformities Skin: Anasarca, warm and dry Neurologic: PERRL, EOMI, accommodation nl, no face palsy, no dysarthria Psychiatric: A+Ox3, euthymic affect Genitourinary: Indwelling Ortega catheter present. Urine dark and concentrated Results & Data Results & Data Vital Signs (Past 12 Hours) Vital Signs Temp Pulse Pulse Resp BP BP Pulse Ox 09/06/23 19:48 61 16 89/64 L 97 09/06/23 19:13 61 16 89/64 L 97 09/06/23 19:00 56 L 16 89/64 L 96 09/06/23 17:45 58 L 16 90/63 L 96 09/06/23 17:00 64 16 86/65 L 96 09/06/23 16:45 60 16 87/62 L 95 09/06/23 16:15 60 16 88/63 L 91 09/06/23 16:01 60 16 88/63 L 90 09/06/23 15:41 65 18 92 09/06/23 15:35 95 09/06/23 15:35 36.6 C 74 16 94/75 L 95 09/06/23 15:32 86 O2 Del Method O2 Flow Rate 09/06/23 19:48 Nasal Cannula 2 09/06/23 19:13 Nasal Cannula 1 09/06/23 19:00 Room Air 09/06/23 17:45 Nasal Cannula 1 09/06/23 17:00 Room Air 09/06/23 16:45 Nasal Cannula 2 09/06/23 16:15 Nasal Cannula 2 09/06/23 16:01 Room Air 09/06/23 15:41 Room Air 09/06/23 15:35 Room Air 09/06/23 15:35 Room Air 09/06/23 15:32 Coding Level of Care Code 81088 CRITICAL CARE 1ST 30-74M Diagnoses Shock R57.9 Heart failure, chronic, with acute decompensation I50.9 Acute renal failure N17.9 Cardiac amyloidosis E85.4; I43 Atrial fibrillation, permanent I48.21 Ascites R18.8 Sepsis A41.9 Failure to thrive syndrome, adult R62.7
[2023-09-06] MEDS: NOREPINEPHRINE/D5W 4 MG/250 ML PLCT IV SCH (21:12)
[2023-09-06 21:43] LABS: Reticulocyte % 4.31 % (0.50-2.00); Reticulocytes # 0.1 10^6/uL (0.020-0.100)
[2023-09-06 21:48] LABS: Magnesium 2.3 mg/dl (1.7-2.4)
[2023-09-06] MEDS: DAPTOmycin 500 MG in SYRINGE 0 ML IV SCH (22:17)
[2023-09-06] MEDS: FUROSEMIDE 40 MG/4 ML VIAL IV ONE (22:23)
[2023-09-06] MEDS: PIPERACILLIN/TAZOBACTAM 4.5 GM in DEXTROSE 5% MINI-B 100 ML IV ONE (22:28)
[2023-09-07] MEDS: PIPERACILLIN/TAZOBACTAM 4.5 GM in DEXTROSE 5% MINI-B 100 ML IV SCH (04:58)
[2023-09-07 05:11] LABS: Hemoglobin 7.4 g/dl (14.0-18.0); Mean Corpuscular Hemoglobin 32.6 pg (25.0-34.0); Mean Corpuscular Hgb Conc 33.6 g/dL (32.0-36.0); Mean Corpuscular Volume 96.9 fL (80.0-100.0); Mean Platelet Volume 10.4 fL (9.4-12.4); Nucleated RBC # (auto) 0.02 K/uL (0.00-0.12); Nucleated RBC % (auto) 0.2 %; Platelet Count 280 K/uL (130-400); RDW Coefficient of Variation 16.4 % (11.5-14.5); RDW Standard Deviation 56.1 fL (36.4-46.3); Red Blood Count 2.27 M/uL (4.70-6.10); White Blood Count 9.81 K/ul (4.8-10.8)
[2023-09-07 05:28] LABS: Anion Gap 14 (3-11); BUN Creatinine Ratio 35.3 (10-20); Blood Urea Nitrogen 118 mg/dl (6-23); Calcium 9.4 mg/dl (8.6-10.3); Carbon Dioxide 19 mmol/L (21-32); Chloride 104 mmol/L (98-107); Creatinine Clr Calc Pharmacy 20.4 ml/min; Est GFR (African American) 19.1 ml/min; Est GFR (Non-African American) 16.5 ml/min; Glucose 69 mg/dl (70-99(Fasting)); Potassium 4.7 mmol/L (3.5-5.1); Sodium 137 mmol/L (136-145)
[2023-09-07 05:57] LABS: Alanine Aminotransferase < 3 U/L (7-52); Albumin Globulin Ratio 0.9 (0.9-2); Albumin Level 3.1 gm/dl (3.4-5.0); Alkaline Phosphatase 171 U/L (34-104); Aspartate Aminotransferase 19 U/L (13-39); Bilirubin,Total 1.1 mg/dl (0.2-1.0); Globulin 3.6 gm/dl (2.5-4.0); Magnesium 2.3 mg/dl (1.7-2.4); Phosphorus 4.1 mg/dl (2.5-4.9); Total Protein 6.7 gm/dl (6.0-8.3)
[2023-09-07] MEDS: HYDROmorphone INJ 0.5 MG/0.5 ML SYR IV PRN ×2 (07:30→18:13)
[2023-09-07] MEDS: MIDODRINE HCL 2.5 MG TAB PO SCH (07:30)
--- NOTE | 2023-09-07 07:36 | Critical Care Progress Note ---
Date of Service September 07, 2023 Assessment & Plan (1) Shock: (2) Heart failure, chronic, with acute decompensation: (3) Acute renal failure: (4) Cardiac amyloidosis: (5) Atrial fibrillation, permanent: (6) Ascites: (7) Sepsis: (8) Failure to thrive syndrome, adult: Plan Reason Critically Ill: 78-year-old male with past medical history significant for cardiac amyloidosis, HFrEF, chronic ascites, and recent admission for MSSA bacteremia presents to the ICU with acute renal failure, decompensated heart failure, and possible underlying sepsis with shock requiring vasopressor support. Neuro - [facility] ICU: Unable to assess --Metabolic encephalopathy Likely from elevated BUN along with shock Continue to monitor Aspiration precautions Cardiac - 2D echo 08/02/2023: EF 45-50%, mild global hypokinesis, severe concentric LVH, RVSP 39 mmHg -- Shock Multifactorial Sepsis plus cardiomyopathy BNP 255 Random cortisol 23 Continue with vasopressor support to keep MAP greater than 65 Respiratory - No history of pulmonary disease -Nebs as needed -- Severe ENEDINA with Serafin-Irvin breathing BiPAP nightly and as needed shortness of breath GI - N.p.o. for now Ascites due to underlying heart failure versus acute renal failure S/p paracentesis 09/07/2023, 5.2 L of cloudy serous fluid removed Follow-up cytology RENAL/LYTES - -- Acute on chronic renal failure Monitor BUNs/creatinine Avoid nephrotoxic medication - Foleystrict I's and O's ENDO - No history of diabetes or thyroid disease. ICU hyperglycemic protocol HEME - Chronic normocytic anemia Monitor H&H, transfuse for hemoglobin less than 7 ID - Sepsis Spontaneous bacterial peritonitis Patient did recently undergo 6 weeks treatment with cefazolin for MSSA Bacteremia - No leukocytosis, Hypothermic, procalcitonin 1.96 -Nasal MRSA negative Got Zosyn and daptomycin when he came to the ER --> changed to Rocephin and Flagyl 09/07/2023 DNR/DNI with no escalation of care --Prophylaxis VTE: Heparin GI: None Lines: Right arm PICC line Diet: N.p.o. Plan: In/out: +25, urine output 400 mL 5.2 liters of acetic fluid removed. Will give him 25% albumin total of 87 g. Keep a very close eye on urine output. Will give 3 of Bumex later today. Patient has been transition to DNR/DNI with no escalation of care if there is any worsening patient will be transition to comfort measures DC daptomycin. Peritoneal fluid shows a WBC count of 2938 with 91% neutrophils, this is inclining towards spontaneous bacterial peritonitis. I will change Zosyn to Rocephin plus Flagyl this will give coverage in good penetration in the peritoneal fluid. Flagyl is for possible aspiration pneumonia I have personally spent 42 minutes of critical care time in the direct management of this patient. This is a life/limb threatening event. This includes time spent evaluating patient, direct bedside care, chart review, placing orders, interpretation of diagnostic studies, discussion with consultants, patient, and family members, as well as other required patient management activities. This time is exclusive of all separately billable procedures, and teaching time and separate from and in addition to any other critical care service time. Thank you for allowing us to participate in the care of this patient. Please refer to my attending physician's documentation for any further recommendations. Admission and Anticipated Discharge Date Admission Date: September 06, 2023 Subjective Patient seen and examined at bedside. No acute distress He was somnolent but easily arousable He was on 0.12 of Levophed with MAP in the low to mid 70s Denied any headache, no shortness of breath. Was saturating 94-95% on 1 L nasal cannula He stated that he is just feeling very lethargic and sleepy. Denied any abdominal pain, no chest pain Review of Systems 2 Review of Systems: All systems reviewed & are unremarkable except as noted in Subjective Physical Exam 2 Physical Exam: Constitutional: No acute distress HEENT: EOMI, PERRLA Respiratory system: Good air entry bilaterally, no wheeze, rhonchi, mild crackles bilateral lower lobes CVS: S1-S2 positive, no murmurs or gallops, distant heart sounds Abdomen: Soft, nontender, nondistended, positive bowel sounds x4 Extremities: +1 pulses bilaterally radialis/ dorsalis pedis, no cyanosis, +2 pitting edema bilateral lower extremity Neuro: Somnolent but easily arousable oriented to self Psych: Flat mood and affect G/U: Positive Ortega Skin: Hematoma/bruising appreciated on the left chest as well as the left flank Lymphatic: no cervical or axillary lymphadenopathy Results & Data Results & Data Vital Signs (Past 12 Hours) Vital Signs Temp Pulse Pulse Resp BP BP Pulse Ox 09/07/23 06:00 71 14 96 09/07/23 05:54 70 16 97 09/07/23 05:33 78 15 88 L 09/07/23 05:30 100/61 09/07/23 05:21 68 15 95 09/07/23 05:12 70 17 99 09/07/23 05:00 81 16 94 09/07/23 04:51 70 16 97 09/07/23 04:42 73 17 94 09/07/23 04:30 72 17 94 09/07/23 04:12 36.3 C L 68 15 96 09/07/23 04:00 65 13 95 09/07/23 03:54 70 15 96 09/07/23 03:42 72 18 97 09/07/23 03:33 70 16 95 09/07/23 03:21 67 18 97 09/07/23 03:18 78 16 96 09/07/23 03:15 99/61 L 09/07/23 03:03 65 16 94 09/07/23 02:47 104/68 09/07/23 02:45 82 18 92 09/07/23 02:33 58 L 17 92 09/07/23 02:21 60 18 97 09/07/23 02:15 93/63 L 09/07/23 02:09 35 C L 70 17 98 09/07/23 02:00 67 15 98 09/07/23 01:51 62 16 94 09/07/23 01:48 68 15 97 09/07/23 01:45 117/72 09/07/23 01:33 66 17 95 09/07/23 01:30 67 18 96 09/07/23 01:12 64 17 99 09/07/23 01:00 62 19 94 09/07/23 00:51 62 14 95 09/07/23 00:42 34 C L 63 18 94 09/07/23 00:33 66 14 93 09/07/23 00:12 60 16 92 09/06/23 23:57 55 L 17 93 09/06/23 23:45 61 18 93 09/06/23 23:30 90/65 L 09/06/23 23:30 61 16 92 09/06/23 23:21 67 17 93 09/06/23 23:18 60 17 94 06/12/24 22:51 60 17 92 09/06/23 22:45 109/62 09/06/23 22:45 65 13 90 09/06/23 22:30 62 15 95 09/06/23 22:21 33.4 C L 60 15 94 09/06/23 22:18 62 13 93 09/06/23 22:03 62 20 97 09/06/23 22:00 100/67 09/06/23 21:54 60 17 96 09/06/23 21:48 61 18 96 09/06/23 21:24 60 17 09/06/23 20:42 60 13 94 09/06/23 20:36 61 15 96 09/06/23 20:24 63 21 90 09/06/23 20:00 66 19 98 09/06/23 20:00 09/06/23 19:48 61 16 89/64 L 97 O2 Del Method O2 Flow Rate 09/07/23 06:00 09/07/23 05:54 09/07/23 05:33 09/07/23 05:30 09/07/23 05:21 09/07/23 05:12 09/07/23 05:00 09/07/23 04:51 09/07/23 04:42 09/07/23 04:30 09/07/23 04:12 09/07/23 04:00 09/07/23 03:54 09/07/23 03:42 09/07/23 03:33 09/07/23 03:21 09/07/23 03:18 09/07/23 03:15 09/07/23 03:03 09/07/23 02:47 09/07/23 02:45 09/07/23 02:33 09/07/23 02:21 09/07/23 02:15 09/07/23 02:09 09/07/23 02:00 09/07/23 01:51 09/07/23 01:48 09/07/23 01:45 09/07/23 01:33 09/07/23 01:30 09/07/23 01:12 09/07/23 01:00 09/07/23 00:51 09/07/23 00:42 09/07/23 00:33 09/07/23 00:12 09/06/23 23:57 09/06/23 23:45 09/06/23 23:30 09/06/23 23:30 09/06/23 23:21 09/06/23 23:18 09/06/23 22:51 09/06/23 22:45 09/06/23 22:45 09/06/23 22:30 09/06/23 22:21 09/06/23 22:18 09/06/23 22:03 09/06/23 22:00 09/06/23 21:54 09/06/23 21:48 09/06/23 21:24 09/06/23 20:42 09/06/23 20:36 09/06/23 20:24 09/06/23 20:00 09/06/23 20:00 Nasal Cannula 1 09/06/23 19:48 Nasal Cannula 2 Laboratory Results 09/07/23 04:49 09/07/23 04:49 Coding Level of Care Code 82704 CRITICAL CARE 1ST 30-74M Diagnoses Shock R57.9 Heart failure, chronic, with acute decompensation I50.9 Acute renal failure N17.9 Cardiac amyloidosis E85.4; I43 Atrial fibrillation, permanent I48.21 Ascites R18.8 Sepsis A41.9 Failure to thrive syndrome, adult R62.7
--- NOTE | 2023-09-07 07:38 | Hospitalist Progress Note ---
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 Admitted with hypotension, anasarca, volume overload on exam and FILI. Initially unclear whether hypotension and FILI was related to cardiogenic cause or sepsis, however, this morning has positive admission blood cultures for pseudomonas by molecular assay and underwent paracentesis with finding of elevated neutrophil count consistent with SBP. Septic shock related to pseudomonas bacteremia, SBP is possible source -antibiotics changed to pip-tazo -albumin being given -await ascitic culture -remains on low dose norepi, potentially transition to midodrine po today FILI -consider transfusion - may improve his cardiac and renal function and may make him feel better, setting goal Hg of 8 -placed whitman catheter, monitor UOP. UA was bland, 2+ proteinuria -paracentesis followed by albumin to decrease intraabdominal pressure -trial plasmalyte currently -consulted nephrology -UOP has been extremely poor today, BUN/Cr not improved overnight decompensated HFmEF and possible cardiorenal failure (acute on chronic HFmEF and FILI on stage 2 CKD) -Echo to reassess EF and volume status - low normal EF 50-55%, severe LVH, mildly dilated IVC, mod-severe TR, mild-mod MR, mild AR -mild troponin elevation is likely related to demand ischemia and impaired renal clearance rather than ACS. troponin 330s-->320. EKG paced with PVC -had trial of lasix 40 IV last night only 100 mL UOP -caution with IVF -consult cardiology ascites with peritonitis - likely SBP, no abdominal pain/tenderness or peritoneal signs. primarily cardiac ascites acute metabolic encephalopathy - related to shock, FILI, HF, possible sepsis. has been intermittently confused nausea -probably multifactorial related to pressure from ascites, uremia, heart failure -as above, PRN ondansetron atrial fibrillation - rate acceptable extensive ecchymoses -apixaban stopped a week [employer] coagulopathy - INR remains elevated despite no apixaban for a week. reflects hepatic congestion back pain - recent compression fracture assessed last admission - PRN low dose IV hydromorphone central sleep apnea - continue nocturnal CPAP malnutrition - consult RD dvt prophylaxis - low dose SQ heparin goals of care - overall prognosis is very poor from his cardiac disease and comorbidities, also sepsis/SBP in setting of renal failure has poor prognosis (60-70%) mortality in cirrhotics - which isn't exactly analagous. Appreciate palliative care consultation and discussed with Dr. Estrada. DNR/DNI at this time with no escalation of care, transition to comfort measures if worsening despite treatment. Admission and Anticipated Discharge Date Admission Date: September 06, 2023 Subjective Had 5L para this am, does not feel different after that. denies dyspnea and abdominal pain. nil UOP throughout the am has been having back pain but refusing meds for this remains on low dose norepi 0.1 his is at bedside Physical Exam 2 Physical Exam: PHYSICAL EXAMINATION last 24h vitals reviewed General: mildly uncomfortable appearing, lying on side. cachectic and frail- appearing HEENT: Normocephalic, atraumatic, pupils round and equal, sclerae anicteric, no conjunctival injection, dry mucus membranes Lungs: Normal respiratory effort. Clear to auscultation bilaterally. No RRW Heart: Regular rate and rhythm, no murmurs. neck veins remain distended Abdomen: Soft, distended with mod ascites. nontender no rebound rigidity or guarding. Bowel sounds present. old appearing ecchymosis which is extensive especially left side of chest and upper abdominal wall Extremities: Warm, edematous. anasarca and sarcopenia x 4 ext present. left heel wound currently dressed. multiple ecchymoses and minor skin abrasions. medial dorsal R forefoot is red but not warm or indurated L heel wound dressed with optifoam Neuro: Alert and oriented x 4 though has been intermittently confused, hard of hearing, face symmetric, moves 4 extremities equally Psych: Normal affect and behavior Results & Data Results & Data Vital Signs (Past 12 Hours) Vital Signs Temp Pulse Pulse Resp BP BP Pulse Ox 09/07/23 06:00 71 14 96 09/07/23 05:54 70 16 97 09/07/23 05:33 78 15 88 L 09/07/23 05:30 100/61 06/13/24 05:21 68 15 95 09/07/23 05:12 70 17 99 09/07/23 05:00 81 16 94 09/07/23 04:51 70 16 97 09/07/23 04:42 73 17 94 09/07/23 04:30 72 17 94 09/07/23 04:12 36.3 C L 68 15 96 09/07/23 04:00 65 13 95 09/07/23 03:54 70 15 96 09/07/23 03:42 72 18 97 09/07/23 03:33 70 16 95 09/07/23 03:21 67 18 97 09/07/23 03:18 78 16 96 09/07/23 03:15 99/61 L 09/07/23 03:03 65 16 94 09/07/23 02:47 104/68 09/07/23 02:45 82 18 92 09/07/23 02:33 58 L 17 92 09/07/23 02:21 60 18 97 09/07/23 02:15 93/63 L 09/07/23 02:09 35 C L 70 17 98 09/07/23 02:00 67 15 98 09/07/23 01:51 62 16 94 09/07/23 01:48 68 15 97 09/07/23 01:45 117/72 09/07/23 01:33 66 17 95 09/07/23 01:30 67 18 96 09/07/23 01:12 64 17 99 09/07/23 01:00 62 19 94 09/07/23 00:51 62 14 95 09/07/23 00:42 34 C L 63 18 94 09/07/23 00:33 66 14 93 09/07/23 00:12 60 16 92 09/06/23 23:57 55 L 17 93 09/06/23 23:45 61 18 93 09/06/23 23:30 90/65 L 09/06/23 23:30 61 16 92 09/06/23 23:21 67 17 93 09/06/23 23:18 60 17 94 09/06/23 22:51 60 17 92 09/06/23 22:45 109/62 09/06/23 22:45 65 13 90 09/06/23 22:30 62 15 95 09/06/23 22:21 33.4 C L 60 15 94 09/06/23 22:18 62 13 93 09/06/23 22:03 62 20 97 09/06/23 22:00 100/67 09/06/23 21:54 60 17 96 09/06/23 21:48 61 18 96 09/06/23 21:24 60 17 09/06/23 20:42 60 13 94 09/06/23 20:36 61 15 96 09/06/23 20:24 63 21 90 09/06/23 20:00 66 19 98 09/06/23 20:00 09/06/23 19:48 61 16 89/64 L 97 O2 Del Method O2 Flow Rate 09/07/23 06:00 09/07/23 05:54 09/07/23 05:33 09/07/23 05:30 09/07/23 05:21 09/07/23 05:12 09/07/23 05:00 09/07/23 04:51 09/07/23 04:42 09/07/23 04:30 09/07/23 04:12 09/07/23 04:00 09/07/23 03:54 09/07/23 03:42 09/07/23 03:33 09/07/23 03:21 09/07/23 03:18 09/07/23 03:15 09/07/23 03:03 09/07/23 02:47 09/07/23 02:45 09/07/23 02:33 09/07/23 02:21 09/07/23 02:15 09/07/23 02:09 09/07/23 02:00 09/07/23 01:51 09/07/23 01:48 09/07/23 01:45 09/07/23 01:33 09/07/23 01:30 09/07/23 01:12 09/07/23 01:00 09/07/23 00:51 09/07/23 00:42 09/07/23 00:33 09/07/23 00:12 09/06/23 23:57 09/06/23 23:45 09/06/23 23:30 09/06/23 23:30 09/06/23 23:21 09/06/23 23:18 09/06/23 22:51 09/06/23 22:45 09/06/23 22:45 09/06/23 22:30 09/06/23 22:21 09/06/23 22:18 09/06/23 22:03 09/06/23 22:00 09/06/23 21:54 09/06/23 21:48 09/06/23 21:24 09/06/23 20:42 09/06/23 20:36 09/06/23 20:24 09/06/23 20:00 09/06/23 20:00 Nasal Cannula 1 09/06/23 19:48 Nasal Cannula 2 Laboratory Results 09/07/23 04:49 09/07/23 04:49 PG Care Time/CCT Total # of Minutes Spent Total Time Spent with Patient: Total time spent is greater than 50% in coordination of care (as documented) at patient's floor/unit and/or counseling patient: Coding Level of Care Code 45294 SUB INP/OBS CARE 3/50MIN Diagnoses Septic shock A41.9; R65.21 Bacteremia due to Pseudomonas R78.81; B96.5 SBP (spontaneous bacterial peritonitis) K65.2 FILI (acute kidney injury) N17.9 Heart failure with mid-range ejection fraction I50.22 Atrial fibrillation, permanent I48.21 Cardiac amyloidosis E85.4; I43
[2023-09-07] MEDS: FINASTERIDE 5 MG TAB PO SCH (08:00)
--- NOTE | 2023-09-07 08:28 | XRay Report ---
XR chest 1V portable CLINICAL HISTORY: f/u COMPARISON STUDY: Chest CT July 2023. Chest radiograph September 06, 2023. FINDINGS: Left subclavian pacer and right PICC remain in place. There is no pneumothorax. Small to mo derate left pleural effusion is again noted. Cardiomegaly is unchanged. Left basilar opacity persists . Pulmonary edema has increased. Low lung volumes are unchanged. IMPRESSION: 1. Cardiomegaly. Increase in pulmonary edema. 2. Small to moderate left pleural effusion with persistent left basilar opacity which could reflect p neumonia or atelectasis. ACT 112: Negative or not required by law. Electronically signed by: Joshua Piña M.D. 09/07/2023 8:26 AM
[2023-09-07] MEDS: ALBUMIN 25% 12.5 GM/50 ML VIAL IV SCH (08:33)
--- NOTE | 2023-09-07 09:12 | Procedure Note ---
Procedure Note Date of Service September 07, 2023 Note Procedure: Diagnostic and therapeutic ultrasound-guided catheter paracentesis Office Director: Dr. Rubens Castellanos Indication: Ascites to rule out SBP Consent: Signed by patient and verified with timeout prior to procedure Anesthesia: 1% lidocaine without epinephrine local. Procedure: Consent was verified and timeout performed. Appropriate imaging studies were reviewed prior to the procedure. Patient was placed in a supine position and limited abdominal ultrasound was performed. See separate imaging. Appropriate site for paracentesis was selected. The skin was prepped and draped in normal sterile fashion. Lidocaine was used for local analgesia. Fluid was aspirated via the finder needle. A small skin melanie was made with the scalpel and the catheter over the needle apparatus was advanced via Z technique. Using the syringe one-way valve system, a total of 5200 mL's of cloudy serous fluid was removed. The catheter was removed and observed to be intact. A sterile dressing was applied. Fluid was sent for labs, culture and cytology. The patient tolerated the procedure without obvious complication Blood loss: Less than none Patient will be given 25% albumin. Coding CPT Codes Abdomen - Abdominal: 75120 Abdominal Paracentesis (diagnostic or therapeutic); W/O imaging ([id number]) Pulmonary/Thoracic - Pulmonary and Thoracic: 90684 US, Chest, real time with imaging documentation ([id number]) [facility] [place] Procedure Codes (Charges) Abdomen Abdominal: 48724 Abdominal Paracentesis (diagnostic or therapeutic); W/O imaging Pulmonary/Thoracic Procedure 1: Pulmonary and Thoracic: 05261 US, Chest, real time with imaging documentation
--- NOTE | 2023-09-07 09:18 | Palliative Care Consultation ---
Date of Consultation September 07, 2023 Assessment & Plan (1) Dyspnea and respiratory abnormalities: (2) Weakness generalized: (3) Persistent wound pain: (4) Advanced care planning/counseling discussion: 45min face to face with pt at bedside then 15min face to face with at bedside together with pt when she later arrived. Reviewed issues to date Patient has a remarkable clear recall of events/progression of illness and recent discussions with cardiology He is aware of cardiorenal syndrome and pressor support and tells me these are not sustainable options. He tells me he wants DNR/DNI and not to prolong dying He knows time is running short and verbalizes a clear understanding of his mortality. He would ideally like to return home but understands this may not happen. indicates he was coming to [facility] for [employer] admission, we agreed will see how he does over the next day or so, no further escalation of care and if he acutely declines, move to [employer] immediately Sx mgt meds ordered I updated Jasmin Benitez, Yari, [facility] nursing, Care Mgt, nephro, CCM teams (5) Cardiac amyloidosis: (6) Surgical wound, non healing: Encounter type: initial encounter Qualified Code(s): T81.89XA - Other complications of procedures, not elsewhere classified, initial encounter (7) Failure to thrive syndrome, adult: (8) Palliative care by specialist: Plan As above Thank you for allowing us to participate in the ongoing care of this patient. Please page with any additional concerns. Atul Estrada [facility] Director, Palliative Medicine History of Present Illness Reason for Consultation: MSOF, shock Attending Physician: Alyson Cooper MD History of Present Illness Dr. Bashir is an 78-year-old male admitted 09/06/23 for hypotension, anasarca, FILI, volume overload, found to be in shockexpect this is likely mixed etiology with acute decompensated heart failure and possible underlying sepsis. 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 He had a recent admission for MSSA bacteremia from heel/foot and gluteal cleft SSTiI/cellulitis for which he has nearly 6 weeks IV Abtx. 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 08/07/23 cardiology note "Complete heart block s/p pacemaker: Ventricular pacing. Unfortunately, with his degree of LV dysfunction he would benefit from an upgrade of the device to include a coronary sinus lead. 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 with acute renal failure, decompensated heart failure, and possible underlying sepsis with shock requiring vasopressor support w/levophed drip to maintain MAP greater than 75, +suspicion of cardiorenal syndrome Allergies Allergy/AdvReac Type Severity Reaction Status Date / Time No Known Allergies Allergy Verified 09/04/23 09:09 Home Medications Medication Instructions Recorded Confirmed Type tafamidis meglumine 20 mg capsule 20 mg PO DAILY 02/24/23 09/04/23 History (Vyndaqel) torsemide 10 mg tablet 50 mg PO UD 06/05/23 09/04/23 History spironolactone 25 mg tablet 25 mg PO UD 08/02/23 09/04/23 History acetaminophen 325 mg tablet 650 mg (2 x 325 mg) PO Q4H PRN #0 08/12/23 09/04/23 Rx tabs cefazolin 2 gram intravenous 2 g IV Q8H 08/12/23 09/04/23 Rx solution tamsulosin 0.4 mg capsule 0.4 mg PO HS #0 caps 08/12/23 09/04/23 Rx finasteride 5 mg tablet (Proscar) 5 mg PO DAILY 09/04/23 09/04/23 History Patient History Medical History Septic shock Anemia Sepsis FILI (acute kidney injury) Compression fracture of body of thoracic vertebra Heart failure with mid-range ejection fraction Gait disturbance Central sleep apnea Pilonidal cyst Surgical History S/P placement of cardiac pacemaker Hx laparoscopic cholecystectomy (03/11/21) Laparoscopic cholecystectomy with intraoperative cholangiogram Dr. 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 Beliefs That Will Affect Care: None marital status: Current Living Situation: Spouse Current Living Situation Comment: at home with current occupational status: retired How many Children do You have: 2 Feels Safe at Home: Yes Diet: low salt during the past year weight has: other Dental Care, Regularly: Yes Physical Activity Frequency: Does not Exercise Seatbelt Use: always Assistive Devices: Cane and Glasses Review of Systems Review of Systems: All systems reviewed & are unremarkable except as noted in Subjective Physical Exam Constitutional: + acute distress, + ill appearing, + fra il appearing, cooperative and + malnourished Eyes: PERRL ENMT: Mouth: + dry oral mucous membranes Throat: uvula midline Neck: normal visual inspection and trachea midline Respiratory: + respiratory distress, + cough, able to speak in complete sentences and symmetric chest movement Auscultation: + diminished lung sounds and + crackles Cardiovascular: S1S2, tachy, +LORENA II/ mild JVD Gastrointestinal (Abdomen): soft distension, ecchymoses on flanks, greater on left bowel sounds diminished tender to palpation Musculoskeletal: generalized weakness diminished strength peripheral edema RUE > LUE, BLE with erythema/warmth on left, tender to touch; +venous insuff changes BLE Skin: normal turgor, + skin atrophy, + dry skin, + erythema and + excoriations Neurologic: oriented x3, awake and alert intermittently off topics speech at times pressured Psychiatric: mood subdued Results & Data Vital Signs (Past 12 Hours) Vital Signs Temp Pulse Resp BP BP Pulse Ox O2 Del Method 09/07/23 08:00 61 15 98 09/07/23 07:45 98/61 L 09/07/23 07:45 74 19 98 Nasal Cannula 09/07/23 07:42 68 19 100 09/07/23 07:30 100/60 09/07/23 07:16 106/60 09/07/23 07:09 73 18 99 09/07/23 07:00 65 16 98 09/07/23 06:57 67 17 98 09/07/23 06:51 75 09/07/23 06:39 79 16 99 09/07/23 06:00 71 14 96 09/07/23 05:54 70 16 97 09/07/23 05:33 78 15 88 L 09/07/23 05:30 100/61 09/07/23 05:21 68 15 95 09/07/23 05:12 70 17 99 09/07/23 05:00 81 16 94 09/07/23 04:51 70 16 97 09/07/23 04:42 73 17 94 09/07/23 04:30 72 17 94 09/07/23 04:12 36.3 C L 68 15 96 09/07/23 04:00 65 13 95 09/07/23 03:54 70 15 96 09/07/23 03:42 72 18 97 09/07/23 03:33 70 16 95 09/07/23 03:21 67 18 97 09/07/23 03:18 78 16 96 09/07/23 03:15 99/61 L 09/07/23 03:03 65 16 94 09/07/23 02:47 104/68 09/07/23 02:45 82 18 92 09/07/23 02:33 58 L 17 92 09/07/23 02:21 60 18 97 09/07/23 02:15 93/63 L 09/07/23 02:09 35 C L 70 17 98 09/07/23 02:00 67 15 98 09/07/23 01:51 62 16 94 09/07/23 01:48 68 15 97 09/07/23 01:45 117/72 09/07/23 01:33 66 17 95 09/07/23 01:30 67 18 96 09/07/23 01:12 64 17 99 09/07/23 01:00 62 19 94 09/07/23 00:51 62 14 95 09/07/23 00:42 34 C L 63 18 94 09/07/23 00:33 66 14 93 09/07/23 00:12 60 16 92 09/06/23 23:57 55 L 17 93 09/06/23 23:45 61 18 93 09/06/23 23:30 90/65 L 09/06/23 23:30 61 16 92 09/06/23 23:21 67 17 93 06/12/24 23:18 60 17 94 09/06/23 22:51 60 17 92 09/06/23 22:45 109/62 09/06/23 22:45 65 13 90 09/06/23 22:30 62 15 95 09/06/23 22:21 33.4 C L 60 15 94 09/06/23 22:18 62 13 93 09/06/23 22:03 62 20 97 09/06/23 22:00 100/67 09/06/23 21:54 60 17 96 09/06/23 21:48 61 18 96 09/06/23 21:24 60 17 O2 Flow Rate 09/07/23 08:00 09/07/23 07:45 09/07/23 07:45 1 09/07/23 07:42 09/07/23 07:30 09/07/23 07:16 09/07/23 07:09 09/07/23 07:00 09/07/23 06:57 09/07/23 06:51 09/07/23 06:39 09/07/23 06:00 09/07/23 05:54 09/07/23 05:33 09/07/23 05:30 09/07/23 05:21 09/07/23 05:12 09/07/23 05:00 09/07/23 04:51 09/07/23 04:42 09/07/23 04:30 09/07/23 04:12 09/07/23 04:00 09/07/23 03:54 09/07/23 03:42 09/07/23 03:33 09/07/23 03:21 09/07/23 03:18 09/07/23 03:15 09/07/23 03:03 09/07/23 02:47 09/07/23 02:45 09/07/23 02:33 09/07/23 02:21 09/07/23 02:15 09/07/23 02:09 09/07/23 02:00 09/07/23 01:51 09/07/23 01:48 09/07/23 01:45 09/07/23 01:33 09/07/23 01:30 09/07/23 01:12 09/07/23 01:00 09/07/23 00:51 09/07/23 00:42 09/07/23 00:33 09/07/23 00:12 09/06/23 23:57 09/06/23 23:45 09/06/23 23:30 09/06/23 23:30 09/06/23 23:21 09/06/23 23:18 09/06/23 22:51 09/06/23 22:45 09/06/23 22:45 09/06/23 22:30 09/06/23 22:21 09/06/23 22:18 09/06/23 22:03 09/06/23 22:00 09/06/23 21:54 09/06/23 21:48 09/06/23 21:24 Laboratory Results 09/07/23 09/07/23 09/07/23 Range/Units Unknown 07:38 04:49 WBC 9.81 (4.8-10.8) K/ul RBC 2.27 L (4.70-6.10) M/uL Hgb 7.4 L (14.0-18.0) g/dl Hct 22.0 L (42.0-52.0) % MCV 96.9 (80.0-100.0) fL MCH 32.6 (25.0-34.0) pg MCHC 33.6 (32.0-36.0) g/dL RDW Std Deviation 56.1 H (36.4-46.3) fL RDW Coeff of Mariel 16.4 H (11.5-14.5) % Plt Count 280 (130-400) K/uL MPV 10.4 (9.4-12.4) fL Immature Gran % (Auto) % Neut % (Auto) % Lymph % (Auto) % [place] % (Auto) % Eos % (Auto) % Baso % (Auto) % Reticulocyte % (Auto) (0.50-2.00) % Neut # (Auto) (1.40-6.50) K/uL Lymph # (Auto) (1.20-3.40) K/uL [place] # (Auto) (0.11-0.59) K/uL Eos # (Auto) (0.00-0.50) K/uL Baso # (Auto) (0.00-0.20) K/uL Reticulocyte # (0.020-0.100) 10^6/uL Immature Gran # (Auto) (0.01-0.20) K/uL Absolute Nucleated RBC 0.02 (0.00-0.12) K/uL Nucleated RBC % (auto) 0.2 % PT (9.0-12.0) Seconds INR (0.9-1.1) APTT (21-31) Seconds PTT Ratio Sodium 137 (136-145) mmol/L Potassium 4.7 (3.5-5.1) mmol/L Chloride 104 (98-107) mmol/L Carbon Dioxide 19 L (21-32) mmol/L Anion Gap 14 H (3-11) BUN 118 H (6-23) mg/dl Creatinine 3.34 H (0.6-1.4) mg/dl Est Cr Clr Drug Dosing 20.4 ml/min Est GFR ( Amer) 19.1 ml/min Est GFR (Non-Af Amer) 16.5 ml/min BUN/Creatinine Ratio 35.3 H (10-20) Glucose 69 L (70-99(Fasting)) mg/dl POC Glucose 79 (70-99) mg/dl Lactate 1.3 (0.4-2.0) mmol/L Calcium 9.4 (8.6-10.3) mg/dl Phosphorus 4.1 (2.5-4.9) mg/dl Magnesium 2.3 (1.7-2.4) mg/dl Total Bilirubin 1.1 H (0.2-1.0) mg/dl Direct Bilirubin (0-0.2) mg/dl AST 19 (13-39) U/L ALT < 3 L (7-52) U/L Alkaline Phosphatase 171 H (34-104) U/L Troponin I High Sens (0-20) pg/ml B-Natriuretic Peptide (0-100) pg/ml Total Protein 6.7 (6.0-8.3) gm/dl Albumin 3.1 L (3.4-5.0) gm/dl Globulin 3.6 (2.5-4.0) gm/dl Albumin/Globulin Ratio 0.9 (0.9-2) Procalcitonin 1.96 H (0-0.5) ng/ml Random Cortisol mcg/dl Urine Color Urine Appearance (Clear) Urine pH (4.5-7.5) Ur Specific [place] (1.000-1.030) Urine Protein (Negative) Urine Glucose (UA) (Negative) Urine Ketones (Negative) Urine Blood (Negative) Urine Nitrite (Negative) Urine Bilirubin (Negative) Urine Urobilinogen (Negative) Ur Leukocyte Esterase (Negative) Urine WBC (Auto) (0-5) /hpf Urine RBC (Auto) (0-2) /hpf U Hyaline Cast (Auto) (0-2) /lpf U Epithel Cells (Auto) (0-2) /hpf Urine Bacteria (Auto) (None Seen) Fluid Neutrophils % 91 % Fluid Lymphocytes % 1 % Fluid Meso/Macro/Glascock % 8 % Fluid Comment Peritoneal Color Yellow Peritoneal Appearance Hazy Peritoneal WBC (Auto) 2938 H (0-300) /ul Peritoneal RBC (Auto) < 2000 /uL Peritoneal Tot Protein 4.0 gm/dl Peritoneal Albumin 1.9 gm/dl Nasal Screen MRSA (PCR) (Negative) Bld Cult ID Panel PCR Blood Type Antibody Screen 09/06/23 09/06/23 09/06/23 Range/Units Unknown 21:18 21:14 WBC 7.18 (4.8-10.8) K/ul RBC 2.22 L (4.70-6.10) M/uL Hgb 7.4 L (14.0-18.0) g/dl Hct 21.8 L (42.0-52.0) % MCV 98.2 (80.0-100.0) fL MCH 33.3 (25.0-34.0) pg MCHC 33.9 (32.0-36.0) g/dL RDW Std Deviation 57.6 H (36.4-46.3) fL RDW Coeff of Mariel 16.4 H (11.5-14.5) % Plt Count 245 (130-400) K/uL MPV 10.5 (9.4-12.4) fL Immature Gran % (Auto) 0.4 % Neut % (Auto) 90.7 % Lymph % (Auto) 5.2 % [place] % (Auto) 3.6 % Eos % (Auto) 0.0 % Baso % (Auto) 0.1 % Reticulocyte % (Auto) 4.31 H (0.50-2.00) % Neut # (Auto) 6.51 H (1.40-6.50) K/uL Lymph # (Auto) 0.37 L (1.20-3.40) K/uL [place] # (Auto) 0.26 (0.11-0.59) K/uL Eos # (Auto) 0.00 (0.00-0.50) K/uL Baso # (Auto) 0.01 (0.00-0.20) K/uL Reticulocyte # 0.100 (0.020-0.100) 10^6/uL Immature Gran # (Auto) 0.03 (0.01-0.20) K/uL Absolute Nucleated RBC (0.00-0.12) K/uL Nucleated RBC % (auto) % PT 14.9 H (9.0-12.0) Seconds INR 1.4 H (0.9-1.1) APTT 34 H (21-31) Seconds PTT Ratio 1.3 Sodium 138 (136-145) mmol/L Potassium 4.5 (3.5-5.1) mmol/L Chloride 105 (98-107) mmol/L Carbon Dioxide 23 (21-32) mmol/L Anion Gap 10 (3-11) BUN 114 H (6-23) mg/dl Creatinine 3.08 H (0.6-1.4) mg/dl Est Cr Clr Drug Dosing 23.3 ml/min Est GFR ( Amer) 21.1 ml/min Est GFR (Non-Af Amer) 18.2 ml/min BUN/Creatinine Ratio 37.0 H (10-20) Glucose 77 (70-99(Fasting)) mg/dl POC Glucose 76 (70-99) mg/dl Lactate 1.3 (0.4-2.0) mmol/L Calcium 9.3 (8.6-10.3) mg/dl Phosphorus 4.0 (2.5-4.9) mg/dl Magnesium 2.3 2.3 (1.7-2.4) mg/dl Total Bilirubin 1.1 H (0.2-1.0) mg/dl Direct Bilirubin 0.6 H (0-0.2) mg/dl AST 19 (13-39) U/L ALT < 3 L (7-52) U/L Alkaline Phosphatase 171 H (34-104) U/L Troponin I High Sens 326.9 H* (0-20) pg/ml B-Natriuretic Peptide (0-100) pg/ml Total Protein 6.7 (6.0-8.3) gm/dl Albumin 3.0 L (3.4-5.0) gm/dl Globulin (2.5-4.0) gm/dl Albumin/Globulin Ratio (0.9-2) Procalcitonin 1.08 H (0-0.5) ng/ml Random Cortisol 23.84 mcg/dl Urine Color Yellow Urine Appearance Cloudy A (Clear) Urine pH 5.0 (4.5-7.5) Ur Specific [place] 1.022 (1.000-1.030) Urine Protein 2+ H (Negative) Urine Glucose (UA) Negative (Negative) Urine Ketones Trace H (Negative) Urine Blood Trace H (Negative) Urine Nitrite Negative (Negative) Urine Bilirubin Negative (Negative) Urine Urobilinogen Negative (Negative) Ur Leukocyte Esterase Trace H (Negative) Urine WBC (Auto) 0-5 (0-5) /hpf Urine RBC (Auto) 3-5 H (0-2) /hpf U Hyaline Cast (Auto) 3-5 H (0-2) /lpf U Epithel Cells (Auto) 3-5 H (0-2) /hpf Urine Bacteria (Auto) None Seen (None Seen) Fluid Neutrophils % % Fluid Lymphocytes % % Fluid Meso/Macro/Glascock % % Fluid Comment Peritoneal Color Peritoneal Appearance Peritoneal WBC (Auto) (0-300) /ul Peritoneal RBC (Auto) /uL Peritoneal Tot Protein gm/dl Peritoneal Albumin gm/dl Nasal Screen MRSA (PCR) Negative (Negative) Bld Cult ID Panel PCR Blood Type O Positive Antibody Screen NEGATIVE 09/06/23 09/06/23 09/06/23 Range/Units 18:50 17:33 16:28 WBC (4.8-10.8) K/ul RBC (4.70-6.10) M/uL Hgb (14.0-18.0) g/dl Hct (42.0-52.0) % MCV (80.0-100.0) fL MCH (25.0-34.0) pg MCHC (32.0-36.0) g/dL RDW Std Deviation (36.4-46.3) fL RDW Coeff of Mariel (11.5-14.5) % Plt Count (130-400) K/uL MPV (9.4-12.4) fL Immature Gran % (Auto) % Neut % (Auto) % Lymph % (Auto) % [place] % (Auto) % Eos % (Auto) % Baso % (Auto) % Reticulocyte % (Auto) (0.50-2.00) % Neut # (Auto) (1.40-6.50) K/uL Lymph # (Auto) (1.20-3.40) K/uL [place] # (Auto) (0.11-0.59) K/uL Eos # (Auto) (0.00-0.50) K/uL Baso # (Auto) (0.00-0.20) K/uL Reticulocyte # (0.020-0.100) 10^6/uL Immature Gran # (Auto) (0.01-0.20) K/uL Absolute Nucleated RBC (0.00-0.12) K/uL Nucleated RBC % (auto) % PT (9.0-12.0) Seconds INR (0.9-1.1) APTT (21-31) Seconds PTT Ratio Sodium (136-145) mmol/L Potassium (3.5-5.1) mmol/L Chloride (98-107) mmol/L Carbon Dioxide (21-32) mmol/L Anion Gap (3-11) BUN (6-23) mg/dl Creatinine (0.6-1.4) mg/dl Est Cr Clr Drug Dosing ml/min Est GFR ( Amer) ml/min Est GFR (Non-Af Amer) ml/min BUN/Creatinine Ratio (10-20) Glucose (70-99(Fasting)) mg/dl POC Glucose (70-99) mg/dl Lactate (0.4-2.0) mmol/L Calcium (8.6-10.3) mg/dl Phosphorus (2.5-4.9) mg/dl Magnesium (1.7-2.4) mg/dl Total Bilirubin (0.2-1.0) mg/dl Direct Bilirubin (0-0.2) mg/dl AST (13-39) U/L ALT (7-52) U/L Alkaline Phosphatase (34-104) U/L Troponin I High Sens 329.2 H* (0-20) pg/ml B-Natriuretic Peptide 255 H (0-100) pg/ml Total Protein (6.0-8.3) gm/dl Albumin (3.4-5.0) gm/dl Globulin (2.5-4.0) gm/dl Albumin/Globulin Ratio (0.9-2) Procalcitonin (0-0.5) ng/ml Random Cortisol mcg/dl Urine Color Urine Appearance (Clear) Urine pH (4.5-7.5) Ur Specific [place] (1.000-1.030) Urine Protein (Negative) Urine Glucose (UA) (Negative) Urine Ketones (Negative) Urine Blood (Negative) Urine Nitrite (Negative) Urine Bilirubin (Negative) Urine Urobilinogen (Negative) Ur Leukocyte Esterase (Negative) Urine WBC (Auto) (0-5) /hpf Urine RBC (Auto) (0-2) /hpf U Hyaline Cast (Auto) (0-2) /lpf U Epithel Cells (Auto) (0-2) /hpf Urine Bacteria (Auto) (None Seen) Fluid Neutrophils % % Fluid Lymphocytes % % Fluid Meso/Macro/Glascock % % Fluid Comment Peritoneal Color Peritoneal Appearance Peritoneal WBC (Auto) (0-300) /ul Peritoneal RBC (Auto) /uL Peritoneal Tot Protein gm/dl Peritoneal Albumin gm/dl Nasal Screen MRSA (PCR) (Negative) Bld Cult ID Panel PCR Pending Blood Type Antibody Screen Diagnostic Findings Chest X-Ray 09/06/23 15:41 XR chest 1V portable CLINICAL HISTORY: Sepsis. COMPARISON STUDY: Chest CT July 2023. Chest radiograph August 04, 2023. FINDINGS: Right PICC and left subclavian pacer remain in place. A skin folds projects over the right chest. There is no pneumothorax. Patient is rotated. Cardiomegaly is noted. There is pulmonary vascular congestion. Left basilar opacity is similar to prior exam. There may be a small to moderate left pleural effusion. IMPRESSION: 1. Cardiomegaly and pulmonary vascular congestion. 2. Persistent left basilar opacity which could reflect pneumonia or atelectasis. Radiographic follow-up to ensure resolution is recommended. 3. Suspected small to moderate left pleural effusion. ACT 112: Negative or not required by law. Electronically signed by: Joshua Piña M.D. 09/06/2023 4:59 PM Chest X-Ray 09/07/23 07:31 XR chest 1V portable CLINICAL HISTORY: f/u COMPARISON STUDY: Chest CT July 2023. Chest radiograph September 06, 2023. FINDINGS: Left subclavian pacer and right PICC remain in place. There is no pneumothorax. Small to moderate left pleural effusion is again noted. Cardiomegaly is unchanged. Left basilar opacity persists. Pulmonary edema has increased. Low lung volumes are unchanged. IMPRESSION: 1. Cardiomegaly. Increase in pulmonary edema. 2. Small to moderate left pleural effusion with persistent left basilar opacity which could reflect pneumonia or atelectasis. ACT 112: Negative or not required by law. Electronically signed by: Joshua Piña M.D. 09/07/2023 8:26 AM PG Care Time/CCT Total # of Minutes Spent Total Time Spent with Patient: Total time spent is greater than 50% in coordination of care (as documented) at patient's floor/unit and/or counseling patient: I spent 135 minutes overall addressing this case: 20 min in medical data review/discussion with referring provider(s) and/or preparation for the visit 20 min in direct interaction with the patient/exam 60 min in Advance Care Planning/Goals of Care discussions as detailed above in note (must be >16min) 15 min in subsequent review and synthesis of assessment and plan 20 min communicating with other providers regarding the patient's case: care mgt, CCM, primary team, nursing nephro Advanced Care Planning 80738 Advanced Care Planning 30 Min [id number] Advanced Care Planning Additional 30 [place] [address] IN/OBS CONSULT LVL 5,80M (25 - SIGNIFICANT, SEPARATELY IDENTIFIABLE ) Patient Type New Medical Decision Making High Complexity Diagnoses Dyspnea and respiratory abnormalities R06.00; R06.89 Weakness generalized R53.1 Persistent wound pain R52 Advanced care planning/counseling discussion Z71.89 Cardiac amyloidosis E85.4; I43 Non-healing surgical wound, initial encounter T81.89XA Encounter type: initial encounter Failure to thrive syndrome, adult R62.7 Palliative care by specialist Z51.5 Additional Codes Advanced Care Planning - 07501 Advanced Care Planning 30 Min: 65028 Advanced Care Planning 30 Min ([id number]) Advanced Care Planning - 05575 Advanced Care Planning Additional 30 Min: 52423 Advanced Care Planning Additional 30 Min ([id number])
--- NOTE | 2023-09-07 09:48 | Communication Note ---
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 He affirms DNR/DNI and states he does not want anything heroic. He clearly elucidated understanding of his illness vi the multifactorial organ failure issues and he reported a prior conversation with Dr Torres which he reports he appreciated very much for both honesty and caring. He states he does not want to prolong anything but would appreciate a chance to try and get back home. He states "but I know I'm fairly sick at this point and the cardiorenal issues are not going to improve." He also referenced his issues with infection and poor wound healing. We discussed the current combination of symptoms in the setting of amyloid as overall poor prognosis and he agreed, adding that he feels his time is short. I offered to call his amyloid team at [facility] to ask if any other reccs but he declined and added he knew he was "close to my end, it's ok, I'm ready, but thank you for asking." For now please try to ameliorate what you can, do not escalate care and if he worsens, move to [facility]. I attempted to call Mrs. Bashir but the phone rang x 10, no answer and no answering machine. I am in OP clinic today but will try to be available/assist. I have added prn orders for pain and sx mgt. I have updated primary team, nursing & CCM attending/CCM teams. Thank you for allowing us to participate in the ongoing care of this patient. Please page with any additional concerns. Atul Estrada DNP Director, Palliative Medicine
[2023-09-07 09:50] LABS: Albumin Peritoneal Fluid 1.9 gm/dl
[2023-09-07 10:19] LABS: Appearance Peritoneal Fluid Hazy; Color Peritoneal Fluid Yellow; Lymphocytes, Fluid 1 %; Mono,Macrophage,Mesothelial 8 %; Neutrophils, Fluid 91 %; RBC Peritoneal Fluid Auto < 2000 /uL; WBC Peritoneal Fluid Auto 2938 /ul (0-300)
--- NOTE | 2023-09-07 10:23 | Nephrology Consultation ---
Date of Consultation September 07, 2023 Assessment & Plan (1) Acute renal failure: (2) Anemia: (3) Heart failure, chronic, with acute decompensation: (4) Failure to thrive syndrome, adult: (5) Cardiac amyloidosis: (6) Ascites: Plan Dr. Bashir was admitted on 09/06/23 with generalized weakness, failure to thrive, nausea, decreased p.o. intake and worsening abdominal ascites for last few days. Recently was admitted in hospital with MSSA bacteremia and left foot ulcer and abscess, discharged to [facility] and went home a week ago. Initially was doing well but over last few days clinically declined significantly. On admission noted to be hypotensive eventually requiring pressor support. Has FILI, creatinine up to 3.4 with oliguria, urine output around 400 mL since admission. FILI most likely related to cardiorenal syndrome with decompensated heart failure with cardiac amyloidosis. Still remained pressor dependent and frail and lethargic. Overall prognosis remains guarded unfortunately. -- Continue to monitor urine output, diuretics as needed for low urine output or respiratory distress. -- Monitor electrolyte. Thank you for allowing me to participate in Dr. Bashir's care. History of Present Illness Reason for Consultation: Oliguric acute kidney injury. Attending Physician: Alyson Cooper MD History of Present Illness Dr. Bashir was admitted to the hospital on 09/06/23 with acute kidney injury, hypotension and failure to thrive. Nephrology consult was requested for manageme nt for oliguric acute kidney injury, volume overload. EMR records are reviewed in detail during visit. Dr. 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 He was admitted to the hospital in July with MSSA bacteremia and left foot abscess s/p incision and drainage during last admission. Has a PICC line and was on IV antibiotic which she almost completed. After discharge during last hospitalization he was discharged to [facility] and returned home a week ago. After coming back home initially he was doing well but since Monday clinically he declined with nausea, generalized weakness and poor p.o. intake. He also noticed worsening abdominal ascites. Presented to ER yesterday and noted to have hypotension, FILI and oliguria. Creatinine was 3.0 which slightly worsened to 3.4 this morning, bicarb 18, BUN 118. Urine output has been low at 400 mL. Hemoglobin 7.4. Has been on pressor since yesterday. Had 5 L of paracentesis this morning. Continues on broad-spectrum antibiotic. Troponin was noted to be elevated but denied any chest pain or significant shortness of breath. During my visit he was awake and alert but quite frail and lethargic. Denied shortness of breath or chest pain. Has been NPO. Blood pressure slightly improved but still requiring pressor. Allergies Allergy/AdvReac Type Severity Reaction Status Date / Time No Known Allergies Allergy Verified 09/04/23 09:09 Home Medications Medication Instructions Recorded Confirmed Type tafamidis meglumine 20 mg capsule 20 mg PO DAILY 02/24/23 09/04/23 History (Vyndaqel) torsemide 10 mg tablet 50 mg PO UD 06/05/23 09/04/23 History spironolactone 25 mg tablet 25 mg PO UD 08/02/23 09/04/23 History acetaminophen 325 mg tablet 650 mg (2 x 325 mg) PO Q4H PRN #0 08/12/23 09/04/23 Rx tabs cefazolin 2 gram intravenous 2 g IV Q8H 08/12/23 09/04/23 Rx solution tamsulosin 0.4 mg capsule 0.4 mg PO HS #0 caps 08/12/23 09/04/23 Rx finasteride 5 mg tablet (Proscar) 5 mg PO DAILY 09/04/23 09/04/23 History Patient History Medical History Septic shock Anemia Sepsis FILI (acute kidney injury) Compression fracture of body of thoracic vertebra Heart failure with mid-range ejection fraction Gait disturbance Central sleep apnea Pilonidal cyst Surgical History S/P placement of cardiac pacemaker Hx laparoscopic cholecystectomy (03/11/21) Laparoscopic cholecystectomy with intraoperative cholangiogram Dr. Nunez 03-11-2021 Social History Smoking Status: Never smoker Do You Dip or Chew Tobacco: No; Hx Alcohol Use: Yes Alcohol type: wine Alcohol Intake Frequency: Monthly or Less Hx Substance Use: No Preferred Language: Togolese Communication Ability: Effective Visual Impairment: No Limitations Consumer Affairs Specialist Required: No Beliefs That Will Affect Care: None marital status: Current Living Situation: Spouse Current Living Situation Comment: at home with current occupational status: retired How many Children do You have: 2 Feels Safe at Home: Yes Diet: low salt during the past year weight has: other Dental Care, Regularly: Yes Physical Activity Frequency: Does not Exercise Seatbelt Use: always Assistive Devices: Cane and Glasses Review of Systems Review of Systems: Detailed review of system was done and pertinent positives and negatives are mentioned above in HPI. Physical Exam Constitutional: WD/WN, vitals as above + ill appearing, + frail appearing and + edematous; no acute distress Respiratory: normal respiratory effort; no respiratory distress Cardiovascular: Rate/Rhythm: regular rate and regular rhythm Extremities: + edema Gastrointestinal (Abdomen): distended. Skin: + turgor decreased and + lesion Psychiatric: Orientation: alert and oriented x 3 Affect: euthymic affect Results & Data Vital Signs (Past 12 Hours) Vital Signs Temp Pulse Resp BP BP Pulse Ox O2 Del Method 09/07/23 09:51 72 15 94 09/07/23 09:45 102/65 09/07/23 09:36 77 20 09/07/23 09:15 67 16 09/07/23 09:03 70 14 115/60 97 Nasal Cannula 09/07/23 08:51 61 15 99 09/07/23 08:50 104/58 L 09/07/23 08:40 103/67 09/07/23 08:33 103/68 09/07/23 08:30 64 14 91 09/07/23 08:21 65 21 91 09/07/23 08:18 61 14 92 09/07/23 08:00 61 15 98 09/07/23 07:45 98/61 L 09/07/23 07:45 74 19 98 Nasal Cannula 09/07/23 07:42 68 19 100 09/07/23 07:30 100/60 09/07/23 07:16 106/60 09/07/23 07:09 73 18 99 09/07/23 07:00 65 16 98 09/07/23 06:57 67 17 98 09/07/23 06:51 75 09/07/23 06:39 79 16 99 09/07/23 06:00 71 14 96 09/07/23 05:54 70 16 97 09/07/23 05:33 78 15 88 L 09/07/23 05:30 100/61 09/07/23 05:21 68 15 95 09/07/23 05:12 70 17 99 09/07/23 05:00 81 16 94 09/07/23 04:51 70 16 97 09/07/23 04:42 73 17 94 09/07/23 04:30 72 17 94 09/07/23 04:12 36.3 C L 68 15 96 09/07/23 04:00 65 13 95 09/07/23 03:54 70 15 96 09/07/23 03:42 72 18 97 09/07/23 03:33 70 16 95 09/07/23 03:21 67 18 97 09/07/23 03:18 78 16 96 09/07/23 03:15 99/61 L 09/07/23 03:03 65 16 94 09/07/23 02:47 104/68 09/07/23 02:45 82 18 92 09/07/23 02:33 58 L 17 92 09/07/23 02:21 60 18 97 09/07/23 02:15 93/63 L 09/07/23 02:09 35 C L 70 17 98 09/07/23 02:00 67 15 98 09/07/23 01:51 62 16 94 09/07/23 01:48 68 15 97 09/07/23 01:45 117/72 09/07/23 01:33 66 17 95 09/07/23 01:30 67 18 96 09/07/23 01:12 64 17 99 09/07/23 01:00 62 19 94 09/07/23 00:51 62 14 95 09/07/23 00:42 34 C L 63 18 94 09/07/23 00:33 66 14 93 09/07/23 00:12 60 16 92 09/06/23 23:57 55 L 17 93 09/06/23 23:45 61 18 93 09/06/23 23:30 90/65 L 09/06/23 23:30 61 16 92 09/06/23 23:21 67 17 93 09/06/23 23:18 60 17 94 09/06/23 22:51 60 17 92 09/06/23 22:45 109/62 09/06/23 22:45 65 13 90 09/06/23 22:30 62 15 95 O2 Flow Rate 09/07/23 09:51 09/07/23 09:45 09/07/23 09:36 09/07/23 09:15 09/07/23 09:03 1 09/07/23 08:51 09/07/23 08:50 09/07/23 08:40 09/07/23 08:33 09/07/23 08:30 09/07/23 08:21 09/07/23 08:18 09/07/23 08:00 09/07/23 07:45 09/07/23 07:45 1 09/07/23 07:42 09/07/23 07:30 09/07/23 07:16 09/07/23 07:09 09/07/23 07:00 09/07/23 06:57 09/07/23 06:51 09/07/23 06:39 09/07/23 06:00 09/07/23 05:54 09/07/23 05:33 09/07/23 05:30 09/07/23 05:21 09/07/23 05:12 09/07/23 05:00 09/07/23 04:51 09/07/23 04:42 09/07/23 04:30 09/07/23 04:12 09/07/23 04:00 09/07/23 03:54 09/07/23 03:42 09/07/23 03:33 09/07/23 03:21 09/07/23 03:18 09/07/23 03:15 09/07/23 03:03 09/07/23 02:47 09/07/23 02:45 09/07/23 02:33 09/07/23 02:21 09/07/23 02:15 09/07/23 02:09 09/07/23 02:00 09/07/23 01:51 09/07/23 01:48 09/07/23 01:45 09/07/23 01:33 09/07/23 01:30 09/07/23 01:12 09/07/23 01:00 09/07/23 00:51 09/07/23 00:42 09/07/23 00:33 09/07/23 00:12 09/06/23 23:57 09/06/23 23:45 09/06/23 23:30 09/06/23 23:30 09/06/23 23:21 09/06/23 23:18 09/06/23 22:51 09/06/23 22:45 09/06/23 22:45 09/06/23 22:30 PG Care Time/CCT Total # of Minutes Spent Total Time Spent with Patient: Total time spent is greater than 50% in coordination of care (as documented) at patient's floor/unit and/or counseling patient: Coding Level of Care Code 64862 INT INP/OBS CARE 3/75MIN Diagnoses Acute renal failure N17.9 Anemia D64.9 Heart failure, chronic, with acute decompensation I50.9 Failure to thrive syndrome, adult R62.7 Cardiac amyloidosis E85.4; I43 Ascites R18.8
[2023-09-07] MEDS: HEPARIN SOD 5,000 UNIT/0.5 ML VIAL SC SCH (10:52)
[2023-09-07 11:28] LABS: A calco-baum cmplx NotReported Not Detected (NotDetected); Bact fragilis Not Reported Not Detected (NotDetected); Blood Culture Id Panel See PCR Comment (NotDetected); C auris Not Reported Not Detected (NotDetected); CTX-M Resistant Gene Not Detected (NotDetected); Calbicans Not Reported Not Detected (NotDetected); Candida glabrata Not Reported Not Detected (NotDetected); Candida krusei Not Reported Not Detected (NotDetected); Cneoformans/gatti Not Reported Not Detected (NotDetected); Cparapsilosis Not Reported Not Detected (NotDetected); E cloacae compx Not Reported Not Detected (NotDetected); Efaecalis Not Reported Not Detected (NotDetected); Efaecium Not Reported Not Detected (NotDetected); Enterobacterales Not Reported Not Detected (NotDetected); Escherichia coli Not Reported Not Detected (NotDetected); H influenzae Not Reported Not Detected (NotDetected); IMP Resistant Gene Not Detected (NotDetected); K aerogenes Not Reported Not Detected (NotDetected); KPC Resistant Gene Not Detected (NotDetected); Koxytoca Not Reported Not Detected (NotDetected); Kpneumoniae grp Not Reported Not Detected (NotDetected); Lmonocyt Not Reported Not Detected (NotDetected); N meningitidis Not Reported Not Detected (NotDetected); NDM Resistant Gene Not Detected (NotDetected); P aeruginosa Not Reported DETECTED (NotDetected); Proteus spp Not Reported Not Detected (NotDetected); Salmonella spp Not Reported Not Detected (NotDetected); Smarcescens Not Reported Not Detected (NotDetected); Staph lugdunensis Not Reported Not Detected (NotDetected); Staph spp. Not Reported Not Detected (NotDetected); Staphaureus Not Reported Not Detected (NotDetected); Staphepi Not Reported Not Detected (NotDetected); Stenmaltophilia Not Reported Not Detected (NotDetected); Strep agal(GrpB) Not Reported Not Detected (NotDetected); Strep pneum Not Reported Not Detected (NotDetected); Strep pyog (GrpA) Not Reported Not Detected (NotDetected); Strep spp Not Reported Not Detected (NotDetected); VIM Resistant Gene Not Detected (NotDetected)
[2023-09-07] MEDS: cefTRIAXone SODIUM 2,000 MG/50 ML BAG IV SCH (11:39)
[2023-09-07] MEDS: metroNIDAZOLE 500 MG/100 ML BAG IV SCH (11:39)
[2023-09-07] MEDS: PLASMA-LYTE A 1,000 ML IV SCH ×2 (11:39→17:49)
[2023-09-07 11:57] LABS: Pseudomonas aeruginosa DETECTED (NotDetected)
--- NOTE | 2023-09-07 13:12 | XCELERA ---
[id number] [id number]
[2023-09-07] MEDS: BUMETANIDE 3 MG in SYRINGE 0 ML IV ONE (16:04)
[2023-09-07] MEDS: PIPER/TAZO 4.5g in D5W MINI-B 100 ML IV SCH (16:05)
[2023-09-07] MEDS ORDERED: cefTRIAXone SODIUM 2,000 MG/50 ML BAG IV SCH (17:30)
--- NOTE | 2023-09-07 18:12 | Communication Note ---
Date of Service: September 07, 2023 Remains hypotensive and hypothermic, dependent on low dose norepi and IV fluids to support blood pressure. UOP 50 mL for today. 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 This is reasonable as he's unlikely to be alert very long after stopping norepi. I updated Drs. Castellanos, Savana, Melissa, Natalie and greatly appreciate their assistance. Will stop as many uncomfortable interventions as possible (glucose checks, labs), has PRN hydromorphone but he's been hesitant to use it thus far.
--- NOTE | 2023-09-08 07:49 | Critical Care Progress Note ---
Date of Service September 08, 2023 Assessment & Plan (1) Shock: (2) Heart failure, chronic, with acute decompensation: (3) Acute renal failure: (4) Cardiac amyloidosis: (5) Atrial fibrillation, permanent: (6) Ascites: (7) Sepsis: (8) Failure to thrive syndrome, adult: Plan Reason Critically Ill: 78-year-old male with past medical history significant for cardiac amyloidosis, HFrEF, chronic ascites, and recent admission for MSSA bacteremia presents to the ICU with acute renal failure, decompensated heart failure, and possible underlying sepsis with shock requiring vasopressor support. Neuro - [facility] ICU: Unable to assess --Metabolic encephalopathy Likely from elevated BUN along with shock Continue to monitor Aspiration precautions Cardiac - 2D echo 08/02/2023: EF 45-50%, mild global hypokinesis, severe concentric LVH, RVSP 39 mmHg -- Septic shock Likely from gram-negative bacteremia BNP 255 Random cortisol 23 Continue with vasopressor support to keep MAP greater than 65 Respiratory - No history of pulmonary disease -Nebs as needed -- Severe ENEDINA with Serafin-Irvin breathing BiPAP nightly and as needed shortness of breath GI - N.p.o. for now Ascites due to underlying heart failure versus acute renal failure S/p paracentesis 09/07/2023, 5.2 L of cloudy serous fluid removed, does go with SBP Negative for malignancy RENAL/LYTES - -- Acute on chronic renal failure Monitor BUNs/creatinine Avoid nephrotoxic medication - Foleystrict I's and O's ENDO - No history of diabetes or thyroid disease. ICU hyperglycemic protocol HEME - Chronic normocytic anemia Monitor H&H, transfuse for hemoglobin less than 7 ID - Sepsis Spontaneous bacterial peritonitis with gram-negative bacteremia Patient did recently undergo 6 weeks treatment with cefazolin for MSSA Bacteremia - No leukocytosis, Hypothermic, procalcitonin 1.96 -Nasal MRSA negative Got Zosyn and daptomycin when he came to the ER --> continue with Zosyn DNR/DNI with no escalation of care --Prophylaxis VTE: None GI: None Lines: Right arm PICC line Diet: Renal diet Plan: In/out: +2.7 L, urine 180 mL Plan is for patient to transition to comfort measures once the family members arrived from [place] For the time being continue with vasopressors to keep MAP greater than 65, continue with IV fluids. No intervention to be taken regarding the PICC line with gram-negative bacteremia given the patient is going to was comfort measures. Continue with Zosyn for the time being. Pain management comfort I have personally spent 32 minutes of critical care time in the direct management of this patient. This is a life/limb threatening event. This includes time spent evaluating patient, direct bedside care, chart review, placing orders, interpretation of diagnostic studies, discussion with consultants, patient, and family members, as well as other required patient management activities. This time is exclusive of all separately billable procedures, and teaching time and separate from and in addition to any other critical care service time. Thank you for allowing us to participate in the care of this patient. Please refer to my attending physician's documentation for any further recommendations. Admission and Anticipated Discharge Date Admission Date: September 06, 2023 Subjective Patient seen and examined at bedside. No acute distress. No adverse events overnight He was on Levophed 0.06. His MAP was in the 70s. He was somnolent but easily arousable. He stated that he wanted to rest. Denies any headache, no nausea, no vomiting, no abdominal pain No chest pain, no shortness of breath. Review of Systems 2 Review of Systems: All systems reviewed & are unremarkable except as noted in Subjective Physical Exam 2 Physical Exam: Constitutional: No acute distress HEENT: EOMI, PERRLA Respiratory system: Good air entry bilaterally, no wheeze, rhonchi, mild crackles bilateral lower lobes CVS: S1-S2 positive, no murmurs or gallops, distant heart sounds Abdomen: Soft, nontender, positive bowel sounds x4 Extremities: +1 pulses bilaterally radialis/ dorsalis pedis, no cyanosis, +2 pitting edema bilateral lower extremity Neuro: Somnolent but easily arousable oriented to self Psych: Flat mood and affect G/U: Positive Ortega Skin: Hematoma/bruising appreciated on the left chest as well as the left flank Skin: no rashes, warm and dry Lymphatic: no cervical or axillary lymphadenopathy Results & Data Results & Data Vital Signs (Past 12 Hours) Vital Signs Pulse Resp BP Pulse Ox Pulse Ox O2 Del Method O2 Del Method 09/08/23 04:45 60 13 96 09/08/23 04:45 98/67 L 09/08/23 04:09 61 13 95 09/08/23 03:45 61 12 95 09/08/23 03:45 97/68 L 09/08/23 03:30 61 13 93 09/08/23 03:30 108/66 09/08/23 03:15 61 13 94 09/08/23 03:15 101/67 09/08/23 03:00 61 12 94 09/08/23 03:00 101/69 09/08/23 02:03 60 13 94 09/08/23 01:30 92/64 L 09/08/23 01:30 60 12 94 09/08/23 01:15 60 11 L 92 09/08/23 01:15 108/69 09/08/23 01:12 60 12 95 09/08/23 00:45 60 10 L 93 09/08/23 00:45 95/66 L 09/08/23 00:03 62 13 94 09/07/23 23:45 105/67 09/07/23 23:45 67 12 95 09/07/23 23:00 101/64 09/07/23 23:00 65 12 95 09/07/23 22:00 61 16 94 09/07/23 22:00 101/64 09/07/23 21:45 96/64 L 09/07/23 21:45 60 13 93 09/07/23 21:00 106/73 09/07/23 21:00 67 10 L 94 09/07/23 20:06 95 Nasal Cannula 09/07/23 20:00 62 16 94 09/07/23 20:00 Nasal Cannula O2 Flow Rate 09/08/23 04:45 09/08/23 04:45 09/08/23 04:09 09/08/23 03:45 09/08/23 03:45 09/08/23 03:30 09/08/23 03:30 09/08/23 03:15 09/08/23 03:15 09/08/23 03:00 09/08/23 03:00 09/08/23 02:03 09/08/23 01:30 09/08/23 01:30 09/08/23 01:15 09/08/23 01:15 09/08/23 01:12 09/08/23 00:45 09/08/23 00:45 09/08/23 00:03 09/07/23 23:45 09/07/23 23:45 09/07/23 23:00 09/07/23 23:00 09/07/23 22:00 09/07/23 22:00 09/07/23 21:45 09/07/23 21:45 09/07/23 21:00 09/07/23 21:00 09/07/23 20:06 1 09/07/23 20:00 09/07/23 20:00 Laboratory Results 09/07/23 04:49 09/07/23 04:49 Coding Level of Care Code 60178 CRITICAL CARE 1ST 30-74M Diagnoses Shock R57.9 Heart failure, chronic, with acute decompensation I50.9 Acute renal failure N17.9 Cardiac amyloidosis E85.4; I43 Atrial fibrillation, permanent I48.21 Ascites R18.8 Sepsis A41.9 Failure to thrive syndrome, adult R62.7
--- NOTE | 2023-09-08 10:51 | Nephrology Progress Note ---
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 intake and worsening abdominal ascites for last few days. Recently was admitted in hospital with MSSA bacteremia and left foot ulcer and abscess, discharged to [facility] and went home a week ago. Initially was doing well but over last few days clinically declined significantly. On admission noted to be hypotensive eventually requiring pressor support. Has FILI, creatinine up to 3.4 with oliguria, urine output around 400 mL since admission. FILI most likely related to cardiorenal syndrome with decompensated heart failure with cardiac amyloidosis. Still remained pressor dependent but otherwise asymptomatic and seems comfortable. Decided not to continue doing labs. Urine output remains low but respiratory status acceptable. --diuretics as needed for respiratory distress but he reports feeling comfortable without any respiratory distress or any pain, did not feel he needs diuretics or any pain medications at this time. Admission and Anticipated Discharge Date Admission Date: September 06, 2023 Ralph Deras was seen this morning with his Trang at bedside. He was comfortable, denied shortness of breath or any pain, awake, alert and oriented and looking forward to seeing his family as they are currently traveling from [place], specially his grandchildren. Blood pressure remain low, still on pressor. Results & Data Vital Signs (Past 12 Hours) Vital Signs Pulse Resp BP Pulse Ox O2 Del Method O2 Flow Rate 09/08/23 08:00 Nasal Cannula 1 09/08/23 04:45 60 13 96 09/08/23 04:45 98/67 L 09/08/23 04:09 61 13 95 09/08/23 03:45 61 12 95 09/08/23 03:45 97/68 L 09/08/23 03:30 61 13 93 09/08/23 03:30 108/66 09/08/23 03:15 61 13 94 09/08/23 03:15 101/67 09/08/23 03:00 61 12 94 09/08/23 03:00 101/69 09/08/23 02:03 60 13 94 06/14/24 01:30 92/64 L 09/08/23 01:30 60 12 94 09/08/23 01:15 60 11 L 92 09/08/23 01:15 108/69 09/08/23 01:12 60 12 95 09/08/23 00:45 60 10 L 93 09/08/23 00:45 95/66 L 09/08/23 00:03 62 13 94 09/07/23 23:45 105/67 09/07/23 23:45 67 12 95 09/07/23 23:00 101/64 09/07/23 23:00 65 12 95 PG Care Time/CCT Total # of Minutes Spent Total Time Spent with Patient: Total time spent is greater than 50% in coordination of care (as documented) at patient's floor/unit and/or counseling patient: Coding Level of Care Code 34282 SUB INP/OBS CARE 04/20MIN Diagnoses Acute renal failure N17.9 Anemia D64.9 Heart failure, chronic, with acute decompensation I50.9 Failure to thrive syndrome, adult R62.7 Cardiac amyloidosis E85.4; I43 Ascites R18.8
--- NOTE | 2023-09-08 14:18 | Hospitalist Progress Note ---
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 Admitted with hypotension, anasarca, volume overload on exam and FILI. Initially unclear whether hypotension and FILI was related to cardiogenic cause or sepsis, however, this morning has positive admission blood cultures for pseudomonas by molecular assay and underwent paracentesis with finding of elevated neutrophil count consistent with SBP. Septic shock related to pseudomonas bacteremia, SBP is possible source or PICC l ine infection -antibiotics cont pip-tazo -await ascitic culture -remains on low dose norepi and plasmalyte, awaiting arrival of his family today then plans transition to comfort measures -no labs drawn because of goals of care FILI -placed whitman catheter, monitor UOP. UA was bland, 2+ proteinuria -consulted nephrology -anuric 09/06, some increase in output this AM -diuretics as needed for dyspnea/pulmonary edema decompensated HFmEF and possible cardiorenal failure (acute on chronic HFmEF and FILI on stage 2 CKD) -Echo was done to reassess EF and volume status - low normal EF 50-55%, severe LVH, mildly dilated IVC, mod-severe TR, mild-mod MR, mild AR -mild troponin elevation is related to demand ischemia and impaired renal clearance rather than ACS. troponin 330s-->320. EKG paced with PVC ascites with peritonitis - likely SBP, no abdominal pain/tenderness or peritoneal signs. primarily cardiac ascites acute metabolic encephalopathy - related to shock, FILI, HF, possible sepsis. has been intermittently confused, oriented but is worse than his baseline mental status nausea -probably multifactorial related to pressure from ascites, uremia, heart failure. May have improved following para -as above, PRN ondansetron atrial fibrillation - rate acceptable extensive ecchymoses -apixaban stopped a week DISC [employer]ING M[employer] coagulopathy - INR remains elevated despite no apixaban for a week. reflects hepatic congestion, sepsis back pain - recent compression fracture assessed last admission - PRN low dose IV hydromorphone central sleep apnea - continue nocturnal CPAP malnutrition - consult RD dvt prophylaxis - stopped SQ heparin for comfort purposes goals of care - overall prognosis is very poor from his cardiac disease and comorbidities, septic shock and bacteremia 6 weeks ago and now another episode. DNR/DNI at this time with no escalation of care, planning transition to comfort measures once his family gathers Admission and Anticipated Discharge Date Admission Date: September 06, 2023 Subjective says he feels ok and denies pain but observably uncomfortable, back pain with turning/moving denies shortness of breath his at bedside this am Physical Exam Physical Exam: PHYSICAL EXAMINATION last 24h vitals reviewed General: awake still uncomfortable appearing HEENT: Normocephalic, atraumatic, pupils round and equal, sclerae anicteric, no conjunctival injection, dry mucus membranes Lungs: Normal respiratory effort. Heart: Ejs remain visible Abdomen: Soft, distended with mod ascites. nontender old appearing ecchymosis which is extensive especially left side of chest and upper abdominal wall Extremities: Warm, edematous. anasarca and sarcopenia x 4 ext present. multiple ecchymoses and minor skin abrasions. medial dorsal R forefoot is red but not warm or indurated L heel wound dressed with optifoam Neuro: Alert and oriented x 4 though has been intermittently confused, hard of hearing, face symmetric, moves 4 extremities equally Psych: Normal affect and behavior Results & Data Results & Data Vital Signs (Past 12 Hours) Vital Signs Temp Pulse Pulse Resp BP BP Pulse Ox 09/08/23 14:00 36.0 C L 60 14 101/67 97 09/08/23 13:06 35.9 C L 60 14 99 09/08/23 12:00 60 17 100/65 97 09/08/23 11:00 101/69 09/08/23 10:00 99/67 L 09/08/23 09:00 107/67 09/08/23 08:00 09/08/23 04:45 60 13 96 09/08/23 04:45 98/67 L 09/08/23 04:09 61 13 95 09/08/23 03:45 61 12 95 09/08/23 03:45 97/68 L 09/08/23 03:30 61 13 93 09/08/23 03:30 108/66 09/08/23 03:15 61 13 94 09/08/23 03:15 101/67 09/08/23 03:00 61 12 94 09/08/23 03:00 101/69 O2 Del Method O2 Flow Rate 09/08/23 14:00 Nasal Cannula 1 09/08/23 13:06 09/08/23 12:00 Nasal Cannula 2 09/08/23 11:00 09/08/23 10:00 09/08/23 09:00 09/08/23 08:00 Nasal Cannula 1 09/08/23 04:45 09/08/23 04:45 09/08/23 04:09 09/08/23 03:45 09/08/23 03:45 09/08/23 03:30 09/08/23 03:30 09/08/23 03:15 09/08/23 03:15 09/08/23 03:00 09/08/23 03:00 PG Care Time/CCT Total # of Minutes Spent Total Time Spent with Patient: Total time spent is greater than 50% in coordination of care (as documented) at patient's floor/unit and/or counseling patient: Coding Level of Care Code 10108 SUB INP/OBS CARE 2/35MIN Diagnoses Septic shock A41.9; R65.21 Bacteremia due to Pseudomonas R78.81; B96.5 SBP (spontaneous bacterial peritonitis) K65.2 FILI (acute kidney injury) N17.9 Heart failure with mid-range ejection fraction I50.22 Atrial fibrillation, permanent I48.21 Cardiac amyloidosis E85.4; I43
--- NOTE | 2023-09-09 07:45 | Critical Care Progress Note ---
Date of Service September 09, 2023 Assessment & Plan (1) Shock: (2) Heart failure, chronic, with acute decompensation: (3) Acute renal failure: (4) Cardiac amyloidosis: (5) Atrial fibrillation, permanent: (6) Ascites: (7) Sepsis: (8) Failure to thrive syndrome, adult: Plan Reason Critically Ill: 78-year-old male with past medical history significant for cardiac amyloidosis, HFrEF, chronic ascites, and recent admission for MSSA bacteremia presents to the ICU with acute renal failure, decompensated heart failure, and possible underlying sepsis with shock requiring vasopressor support. Neuro - [facility]: Unable to assess --Metabolic encephalopathy --> improved Likely from elevated BUN along with shock Continue to monitor Aspiration precautions Cardiac - 2D echo 08/02/2023: EF 45-50%, mild global hypokinesis, severe concentric LVH, RVSP 39 mmHg -- Septic shock Likely from Pseudomonas bacteremia Source could be PICC as well as SBP BNP 255 Random cortisol 23 Continue with vasopressor support to keep MAP greater than 65 Respiratory - No history of pulmonary disease -Nebs as needed -- Severe ENEDINA with Serafin-Irvin breathing BiPAP nightly and as needed shortness of breath GI - N.p.o. for now Ascites Due to underlying heart failure versus acute renal failure S/p paracentesis 09/07/2023, 5.2 L of cloudy serous fluid removed, does go with SBP Negative for malignancy RENAL/LYTES - -- Acute on chronic renal failure Monitor BUNs/creatinine Avoid nephrotoxic medication - Foleystrict I's and O's ENDO - No history of diabetes or thyroid disease. ICU hyperglycemic protocol HEME - Chronic normocytic anemia Monitor H&H, transfuse for hemoglobin less than 7 ID - Sepsis Spontaneous bacterial peritonitis with gram-negative bacteremia Patient did recently undergo 6 weeks treatment with cefazolin for MSSA Bacteremia - No leukocytosis, Hypothermic, procalcitonin 1.96 -Nasal MRSA negative Got Zosyn and daptomycin when he came to the ER --> continue with Zosyn -- DNR/DNI with no escalation of care --Prophylaxis VTE: None GI: None Lines: Right arm PICC line Diet: Renal diet Plan: In/out: +1.1 L, urine output 1275 Decrease fluid to 75 mill per hour Transition to comfort measures once patient and family are ready Continue with vasopressors to keep MAP greater than 65, continue with IV fluids. No intervention to be taken regarding the PICC line with gram-negative bacteremia given the patient is going to was comfort measures. Continue with Zosyn for the time being. Keep the patient comfortable Please note the above document was generated using voice recognition software. It may contain grammatical, syntax or spelling errors.Any formal questions or concerns about the content, text or information contained within the body of this dictation should be directly addressed to the provider for clarification. Admission and Anticipated Discharge Date Admission Date: September 06, 2023 Subjective Patient seen and examined at bedside. No acute distress, no adverse events overnight He was still in the 106 of Levophed. MAP was in the low 70s. He was sleeping but easily arousable. Answering all the questions appropriately Denied any headache, no nausea, no vomiting. No abdominal pain. Patient has very poor appetite as per the nurse. Review of Systems 2 Review of Systems: All systems reviewed & are unremarkable except as noted in Subjective and Unobtainable due to cognitive status Physical Exam 2 Physical Exam: Constitutional: No acute distress HEENT: EOMI, PERRLA Respiratory system: Good air entry bilaterally, no wheeze, rhonchi, mild crackles bilateral lower lobes CVS: S1-S2 positive, no murmurs or gallops, distant heart sounds Abdomen: Soft, nontender, positive bowel sounds x4 Extremities: +1 pulses bilaterally radialis/ dorsalis pedis, no cyanosis, +2 pitting edema bilateral lower extremity Neuro: Somnolent but easily arousable oriented to self and place Psych: Flat mood and affect G/U: Positive Ortega Skin: Hematoma/bruising appreciated on the left chest as well as the left flank Skin: no rashes, warm and dry Lymphatic: no cervical or axillary lymphadenopathy Results & Data Results & Data Vital Signs (Past 12 Hours) Vital Signs Temp Pulse Resp BP Pulse Ox 09/09/23 03:03 36.1 C L 62 11 L 100 09/09/23 02:02 36.1 C L 61 12 100 09/09/23 02:00 96/63 L 09/09/23 01:53 36.1 C L 63 11 L 99 09/09/23 01:00 97/60 L 09/09/23 01:00 36.2 C L 60 11 L 98 09/09/23 00:24 36.2 C L 60 14 100 09/08/23 23:03 36.3 C L 60 10 L 99 09/08/23 22:03 36.3 C L 67 17 98 09/08/23 21:06 36.3 C L 60 16 99 09/08/23 20:06 36.2 C L 61 13 100 Laboratory Results 09/07/23 04:49 09/07/23 04:49 Coding Level of Care Code 14503 SUB INP/OBS CARE 3/50MIN Diagnoses Shock R57.9 Heart failure, chronic, with acute decompensation I50.9 Acute renal failure N17.9 Cardiac amyloidosis E85.4; I43 Atrial fibrillation, permanent I48.21 Ascites R18.8 Sepsis A41.9 Failure to thrive syndrome, adult R62.7
--- NOTE | 2023-09-09 15:20 | Hospitalist Progress Note ---
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 Admitted with hypotension, anasarca, volume overload on exam and FILI. Initially unclear whether hypotension and FILI was related to cardiogenic cause or sepsis, however, this morning has positive admission blood cultures for pseudomonas by molecular assay and underwent paracentesis with finding of elevated neutrophil count consistent with SBP. Septic shock related to pseudomonas bacteremia, SBP is possible source or PICC l ine infection -antibiotics cont pip-tazo -await ascitic culture -remains on low dose norepi and plasmalyte, awaiting arrival of his family/friends then plans transition to comfort measures -no labs drawn because of goals of care FILI -placed whitman catheter, monitor UOP. UA was bland, 2+ proteinuria -consulted nephrology -anuric 09/06, UOP increased 09/07-09/08 -diuretics as needed for dyspnea/pulmonary edema decompensated HFmEF and possible cardiorenal failure (acute on chronic HFmEF and FILI on stage 2 CKD) -Echo was done to reassess EF and volume status - low normal EF 50-55%, severe LVH, mildly dilated IVC, mod-severe TR, mild-mod MR, mild AR -mild troponin elevation is related to demand ischemia and impaired renal clearance rather than ACS. troponin 330s-->320. EKG paced with PVC -reaccumulating ascites rapidly ascites with peritonitis - likely SBP, no abdominal pain/tenderness or peritoneal signs. primarily cardiac ascites acute metabolic encephalopathy - related to shock, FILI, HF, possible sepsis. has been intermittently confused, oriented but is worse than his baseline mental status nausea -probably multifactorial related to pressure from ascites, uremia, heart failur e. May have improved following para -as above, PRN ondansetron atrial fibrillation - rate acceptable extensive ecchymoses -apixaban stopped a week [employer] coagulopathy - INR remains elevated despite no apixaban for a week. reflects hepatic congestion, sepsis back pain - recent compression fracture assessed last admission - PRN low dose IV hydromorphone central sleep apnea - continue nocturnal CPAP malnutrition - consult RD dvt prophylaxis - stopped SQ heparin for comfort purposes goals of care - overall prognosis is very poor from his cardiac disease and comorbidities, septic shock and bacteremia 6 weeks ago and now another episode. DNR/DNI at this time with no escalation of care, planning transition to comfort measures once his family gathers Admission and Anticipated Discharge Date Admission Date: September 06, 2023 Subjective intermittently uncomfortable - back pain, positioning. denies shortness of breath. has not been wanting to eat and drink. is on oxygen at this time. wants to continue same treatments awaiting arrival of a friend from [place] Physical Exam Physical Exam: PHYSICAL EXAMINATION last 24h vitals reviewed General: sleeping but woke up when I was just standing in the room HEENT: Normocephalic, atraumatic, pupils round and equal, sclerae anicteric, no conjunctival injection, dry mucus membranes Lungs: Normal respiratory effort. CTAB - anteriorly and R posterior, due to positioning Heart: reg Abdomen: Soft, distended with mod-large ascites, more full today but not tense. nontender Extremities: Warm, edematous. anasarca and sarcopenia x 4 ext present. LE edema increased. L heel wound dressed with optifoam Neuro: Alert and oriented x 4 currently, hard of hearing, face symmetric, moves 4 extremities equally Psych: Normal affect and behavior Results & Data Results & Data Vital Signs (Past 12 Hours) Vital Signs Temp Pulse Resp BP Pulse Ox O2 Del Method O2 Flow Rate 09/09/23 11:03 35.8 C L 70 13 93/60 L 92 09/09/23 10:00 35.9 C L 63 21 93/60 L 99 09/09/23 09:13 Nasal Cannula 1 09/09/23 09:12 36.0 C L 61 18 96 09/09/23 09:00 90/59 L 09/09/23 08:54 36.0 C L 61 16 98 09/09/23 08:16 123/66 09/09/23 08:06 36.0 C L 64 15 96 09/09/23 08:00 35.9 C L 73 15 97 09/09/23 07:03 36.0 C L 60 16 97 09/09/23 07:00 99/64 L PG Care Time/CCT Total # of Minutes Spent Total Time Spent with Patient: Total time spent is greater than 50% in coordination of care (as documented) at patient's floor/unit and/or counseling patient: Coding Level of Care Code 87436 SUB INP/OBS CARE 2/35MIN Diagnoses Septic shock A41.9; R65.21 Bacteremia due to Pseudomonas R78.81; B96.5 SBP (spontaneous bacterial peritonitis) K65.2 FILI (acute kidney injury) N17.9 Heart failure with mid-range ejection fraction I50.22 Atrial fibrillation, permanent I48.21 Cardiac amyloidosis E85.4; I43
[2023-09-09] MEDS ORDERED: Nursing to Pharmacy Communication SCH (16:30)
[2023-09-09] MEDS: HYDROmorphone INJ 0.5 MG/0.5 ML SYR IV PRN (21:15)
--- NOTE | 2023-09-10 07:23 | Hospitalist Progress Note ---
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 Admitted with hypotension, anasarca, volume overload on exam and FILI. Initially unclear whether hypotension and FILI was related to cardiogenic cause or sepsis, however, this morning has positive admission blood cultures for pseudomonas by molecular assay and underwent paracentesis with finding of elevated neutrophil count consistent with SBP. Septic shock related to pseudomonas bacteremia, SBP likely source since ascites culture also growing Pseudomonas. or PICC line infection -treated with pip-tazo, he's been refusing doses starting AM of 09/08, discontinued -transitioning to comfort measures FILI -placed whitman catheter, UA was bland, 2+ proteinuria -consulted nephrology -anuric 09/06, UOP increased 09/08 -diuretics as needed for dyspnea/pulmonary edema decompensated HFmEF and possible cardiorenal failure (acute on chronic HFmEF and FILI on stage 2 CKD) -Echo was done to reassess EF and volume status - low normal EF 50-55%, severe LVH, mildly dilated IVC, mod-severe TR, mild-mod MR, mild AR -mild troponin elevation is related to demand ischemia and impaired renal clearance rather than ACS. troponin 330s-->320. EKG paced with PVC -reaccumulating ascites Pseudomonas SBP, no abdominal pain/tenderness or peritoneal signs. primarily cardiac ascites acute metabolic encephalopathy - related to sepsis, FILI, HF. has been intermittently confused, has remained oriented nausea -probably multifactorial related to pressure from ascites, uremia, heart failure. May have improved following para -as above, PRN ondansetron atrial fibrillation - -apixaban stopped a week [employer]IST coagulopathy - INR elevated despite no apixaban for a week. reflects hepatic congestion, sepsis back pain - recent compression fracture assessed last admission - PRN low dose IV hydromorphone central sleep apnea - continue nocturnal CPAP malnutrition - consulted RD dvt prophylaxis - stopped SQ heparin for comfort purposes goals of care - essentially on comfort care at this point. Off pressors and IV antibiotics last 24h. Continue IV hydromorphone for pain or dyspnea. Family and friends have been able to gather. Admission and Anticipated Discharge Date Admission Date: September 06, 2023 Subjective Remains hypotensive in 80s/50s and hypothermic, UOP improved, not eating, norepi off last 24h, he has refused last 3 doses of pip-tazo so discontinued Physical Exam Physical Exam: PHYSICAL EXAMINATION last 24h vitals reviewed General: sleeping this afternoon HEENT: eyes closed Lungs: Normal respiratory effort. Heart: deferred Abdomen: distended with mod-large ascites Extremities: Warm, edematous. anasarca and sarcopenia x 4 ext present. L heel wound dressed with optifoam Neuro: Sleeping, has remained oriented with intermittent confusion Results & Data Results & Data Vital Signs (Past 12 Hours) Vital Signs Temp Pulse Resp BP Pulse Ox O2 Del Method O2 Flow Rate 09/10/23 04:00 35.0 C L 60 9 L 95 09/10/23 04:00 80/53 L 09/10/23 03:00 35.1 C L 60 11 L 99 09/10/23 02:00 35.2 C L 61 10 L 97 09/10/23 01:03 35.3 C L 60 9 L 97 09/10/23 00:33 35.4 C L 60 11 L 95 09/10/23 00:00 82/53 L 09/09/23 23:48 35.4 C L 60 13 95 09/09/23 23:09 35.4 C L 60 11 L 96 09/09/23 23:00 81/52 L 09/09/23 22:51 35.5 C L 60 10 L 95 09/09/23 22:21 35.5 C L 60 10 L 96 09/09/23 21:06 35.5 C L 60 15 93 09/09/23 21:00 84/55 L 09/09/23 20:54 35.5 C L 64 14 94 09/09/23 20:09 35.5 C L 60 13 96 09/09/23 20:00 Nasal Cannula 2 PG Care Time/CCT Total # of Minutes Spent Total Time Spent with Patient: Total time spent is greater than 50% in coordination of care (as documented) at patient's floor/unit and/or counseling patient: Coding Level of Care Code 40845 SUB INP/OBS CARE 04/20MIN Diagnoses Septic shock A41.9; R65.21 Bacteremia due to Pseudomonas R78.81; B96.5 SBP (spontaneous bacterial peritonitis) K65.2 FILI (acute kidney injury) N17.9 Heart failure with mid-range ejection fraction I50.22 Atrial fibrillation, permanent I48.21 Cardiac amyloidosis E85.4; I43
--- NOTE | 2023-09-10 09:02 | Critical Care Progress Note ---
Date of Service September 10, 2023 Assessment & Plan (1) Shock: (2) Heart failure, chronic, with acute decompensation: (3) Acute renal failure: (4) Cardiac amyloidosis: (5) Atrial fibrillation, permanent: (6) Ascites: (7) Sepsis: (8) Failure to thrive syndrome, adult: Plan Reason Critically Ill: 78-year-old male with past medical history significant for cardiac amyloidosis, HFrEF, chronic ascites, and recent admission for MSSA bacteremia presents to the ICU with acute renal failure, decompensated heart failure, and possible underlying sepsis with shock requiring vasopressor support. Neuro - [facility]: Negative. --Metabolic encephalopathy --> resolving. Continue to monitor Aspiration precautions Cardiac - 2D echo 08/02/2023: EF 45-50%, mild global hypokinesis, severe concentric LVH, RVSP 39 mmHg -- Septic shock Likely from Pseudomonas bacteremia Source could be PICC as well as SBP BNP 255 Random cortisol 23 Patient has been off of norepinephrine for the past 24 hours. Patient considering comfort care measures. He is mentating well. Will monitor off of norepinephrine despite low systolic blood pressures at this time and reinitiate if mental status worsens or patient desires more aggressive care. Respiratory - No history of pulmonary disease -Nebs as needed -- Severe ENEDINA with Serafin-Irvin breathing BiPAP nightly and as needed shortness of breath GI - N.p.o. for now Ascites Due to underlying heart failure versus acute renal failure S/p paracentesis 09/07/2023, 5.2 L of cloudy serous fluid removed, does go with SBP Negative for malignancy RENAL/LYTES - -- Acute on chronic renal failure Monitor BUNs/creatinine Avoid nephrotoxic medication Labs have been on hold for the past 3 days per patient request. - Foleystrict I's and O's ENDO - No history of diabetes or thyroid disease. ICU hyperglycemic protocol HEME - Chronic normocytic anemia Monitor H&H, transfuse for hemoglobin less than 7 ID - Sepsis Spontaneous bacterial peritonitis with gram-negative bacteremia. Patient remains on Zosyn, but this is difficult to dose without checking his creatinine. Patient did recently undergo 6 weeks treatment with cefazolin for MSSA Bacteremia - No leukocytosis, Hypothermic, procalcitonin 1.96 -Nasal MRSA negative Got Zosyn and daptomycin when he came to the ER --> continue with Zosyn -- DNR/DNI with no escalation of care --Prophylaxis VTE: None GI: None Lines: Right arm PICC line Diet: Renal diet Admission and Anticipated Discharge Date Admission Date: September 06, 2023 Subjective Patient seen and examined. Patient's friend is at bedside. He denies any major complaints at present including shortness of breath, pain, or fever. He is a bit drowsy this morning, but able to answer questions appropriately. Signout received from overnight ICU ISAEL and associate editor whoever saw the patient yesterday. Patient also discussed on rounds with nursing and ICU pharmacy. Review of Systems Review of Systems: All systems reviewed & are unremarkable except as noted in HPI & below Physical Exam Physical Exam: Constitutional: No acute distress HEENT: EOMI, PERRLA Respiratory system: Good air entry bilaterally, no wheeze, rhonchi, mild crackles bilateral lower lobes CVS: S1-S2 positive, no murmurs or gallops, distant heart sounds Abdomen: Soft, nontender, positive bowel sounds x4 Extremities: +1 pulses bilaterally radialis/ dorsalis pedis, no cyanosis, +2 pitting edema bilateral lower extremity Neuro: Somnolent but easily arousable oriented to self and place Psych: Flat mood and affect G/U: Positive Ortega Skin: Hematoma/bruising appreciated on the left chest as well as the left flank Skin: no rashes, warm and dry Lymphatic: no cervical or axillary lymphadenopathy Results & Data Results & Data Vital Signs (Past 12 Hours) Vital Signs Temp Pulse Pulse Resp BP BP Pulse Ox 09/10/23 08:00 60 13 76/54 L 98 09/10/23 07:00 60 12 85/67 L 09/10/23 04:00 35.0 C L 60 9 L 95 09/10/23 04:00 80/53 L 09/10/23 03:00 35.1 C L 60 11 L 99 09/10/23 02:00 35.2 C L 61 10 L 97 09/10/23 01:03 35.3 C L 60 9 L 97 09/10/23 00:33 35.4 C L 60 11 L 95 09/10/23 00:00 82/53 L 09/09/23 23:48 35.4 C L 60 13 95 09/09/23 23:09 35.4 C L 60 11 L 96 09/09/23 23:00 81/52 L 09/09/23 22:51 35.5 C L 60 10 L 95 09/09/23 22:21 35.5 C L 60 10 L 96 09/09/23 21:06 35.5 C L 60 15 93 09/09/23 21:00 84/55 L O2 Del Method O2 Flow Rate 09/10/23 08:00 Nasal Cannula 2 09/10/23 07:00 Nasal Cannula 2 09/10/23 04:00 09/10/23 04:00 09/10/23 03:00 09/10/23 02:00 09/10/23 01:03 09/10/23 00:33 09/10/23 00:00 09/09/23 23:48 09/09/23 23:09 09/09/23 23:00 09/09/23 22:51 09/09/23 22:21 09/09/23 21:06 09/09/23 21:00 Coding Level of Care Code 86576 SUB INP/OBS CARE 3/50MIN Diagnoses Shock R57.9 Heart failure, chronic, with acute decompensation I50.9 Acute renal failure N17.9 Cardiac amyloidosis E85.4; I43 Atrial fibrillation, permanent I48.21 Ascites R18.8 Sepsis A41.9 Failure to thrive syndrome, adult R62.7
[2023-09-11] MEDS: hydrOXYzine HCl 25 MG TAB PO PRN (11:29)
[2023-09-11] MEDS ORDERED: ONDANSETRON 4 MG OD TAB SL PRN (14:46)
[2023-09-11] MEDS ORDERED: GLYCOPYRROLATE 0.2 MG/ML VIAL IV PRN (14:46)
[2023-09-11] MEDS ORDERED: HYOSCYAMINE SULFATE 0.125 MG TAB SL PRN (14:46)
[2023-09-11] MEDS ORDERED: BACLOFEN 10 MG TAB PO PRN (14:46)
[2023-09-11] MEDS ORDERED: MoRPHine SULFATE 10 MG/0.5 ML UDP PO PRN (14:46)
[2023-09-11] MEDS ORDERED: ATROPINE SULFATE 1% OP SOLN 5 ML BTL SL PRN (14:46)
[2023-09-11] MEDS ORDERED: ACETAMINOPHEN 650 MG SUPP PR PRN (14:46)
[2023-09-11] MEDS ORDERED: chlorproMAZINE HCL 25 MG TAB PO PRN (14:46)
[2023-09-11] MEDS ORDERED: LORazepam 0.5 MG TAB PO PRN (14:46)
[2023-09-11] MEDS ORDERED: haloperidoL 1 MG TAB PO PRN (14:46)
[2023-09-11] MEDS ORDERED: LORazepam 0.5 MG in SYRINGE 0.25 ML IV PRN (14:46)
--- NOTE | 2023-09-11 15:00 | Hospitalist Progress Note ---
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 Admitted with hypotension, anasarca, volume overload on exam and FILI. Treated for septic shock related to pseudomonas bacteremia and SBP. Critical care, nephrology, palliative care consulted this admission. Transitioned to comfort measures gradually over the weekend. Medications for comfort - PRN hydromorphone IV, added hydroxyzine for itching, antiemetics etc Septic shock related to pseudomonas bacteremia, SBP likely source since ascites culture also growing Pseudomonas. or PICC line infection -initally treated with pip-tazo, he's been refusing doses starting AM of 09/08, discontinued -initially on norepi, discontinued 09/08 -transitioned to comfort measures FILI -placed whitman catheter, UA was bland, 2+ proteinuria -consulted nephrology -anuric 09/06, UOP increased 09/08 -leave whitman for comfort -diuretics as needed for dyspnea/pulmonary edema decompensated HFmEF and possible cardiorenal failure (acute on chronic HFmEF and FILI on stage 2 CKD) -Echo was done to reassess EF and volume status - low normal EF 50-55%, severe LVH, mildly dilated IVC, mod-severe TR, mild-mod MR, mild AR -mild troponin elevation is related to demand ischemia and impaired renal clearance rather than ACS. troponin 330s-->320. EKG paced with PVC -reaccumulating ascites, avoid IV fluids, diuretics as needed Pseudomonas SBP, no abdominal pain/tenderness or peritoneal signs. primarily cardiac ascites acute metabolic encephalopathy - related to sepsis, FILI, HF. has been intermittently confused, has remained oriented atrial fibrillation - -apixaban stopped a week [employer] coagulopathy - INR elevated despite no apixaban for a week. reflects hepatic congestion, sepsis back pain - recent compression fracture assessed last admission - PRN IV hydromorphone central sleep apnea - continue nocturnal CPAP only if he requests it malnutrition - consulted RD dvt prophylaxis - not indicated, comfort care goals of care - essentially on comfort care at this point. Off pressors and IV antibiotics last 24h. Continue IV hydromorphone for pain or dyspnea. Family and friends have been able to gather. Admission and Anticipated Discharge Date Admission Date: September 06, 2023 Subjective Doing well, comfortable except rear gets sore from sitting Abdomen not painful or tight. Has had itching, hydroxyzine helped Physical Exam Physical Exam: PHYSICAL EXAMINATION last 24h vitals reviewed General: awake alert HEENT: sclerae anicteric, MM dry Lungs: Normal respiratory effort. Heart: deferred Abdomen: distended with mod-large ascites Extremities: Warm, edematous. anasarca and sarcopenia x 4 ext present. Whitman - yellow urine L heel wound dressed with optifoam Neuro: awake and oriented to place and situation, some repetitive statements, no confusion Results & Data Results & Data Vital Signs (Past 12 Hours) Vital Signs Temp Pulse Resp O2 Del Method 09/11/23 10:28 Room Air 09/11/23 08:12 34.5 C L 69 12 09/11/23 07:09 34.6 C L 61 PG Care Time/CCT Total # of Minutes Spent Total Time Spent with Patient: Total time spent is greater than 50% in coordination of care (as documented) at patient's floor/unit and/or counseling patient: Coding Level of Care Code 90806 SUB INP/OBS CARE 2/35MIN Diagnoses Septic shock A41.9; R65.21 Bacteremia due to Pseudomonas R78.81; B96.5 SBP (spontaneous bacterial peritonitis) K65.2 FILI (acute kidney injury) N17.9 Heart failure with mid-range ejection fraction I50.22 Atrial fibrillation, permanent I48.21 Cardiac amyloidosis E85.4; I43
[2023-09-12] MEDS: MELATONIN 3 MG TAB PO PRN (00:50)
--- NOTE | 2023-09-12 07:31 | Hospitalist Progress Note ---
Date of Service September 12, 2023 Assessment & Plan (1) Septic shock: Plan: Patient presented with septic shock having Pseudomonas in peritoneal fluid blood and heel culture from previous site of heel abscess. Patient began refusing antibiotics on 09/08 patient with transition to comfort care measures which she has done so. 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 has been intermittently confused, has remained oriented (2) FILI (acute kidney injury): Plan: Patient presenting with acute kidney injury on chronic kidney disease stage III was briefly anuric but now has resumed urine output has Ortega catheter placed for comfort (3) Heart failure with mid-range ejection fraction: Plan: Amyloid cardiomyopathy with subsequent decompensated HFmEF and possible cardiorenal failure (acute on chronic HFmEF and FILI on stage 2 CKD) -Echo was done to reassess EF and volume status - low normal EF 50-55%, severe LVH, mildly dilated IVC, mod-severe TR, mild-mod MR, mild AR -mild troponin elevation is related to demand ischemia and impaired renal clearance rather than ACS. troponin 330s-->320. 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 Admitted with hypotension, anasarca, volume overload on exam and FILI. Treated for septic shock related to pseudomonas bacteremia and SBP. Critical care, nephrology, palliative care consulted this admission. Transitioned to comfort measures gradually over the weekend. Medications for comfort - PRN hydromorphone IV, added hydroxyzine for itching, antiemetics etc back pain - recent compression fracture assessed last admission - PRN IV hydromorphone central sleep apnea - continue nocturnal CPAP only if he requests it dvt prophylaxis - not indicated, comfort care goals of care - essentially on comfort care at this point. Off pressors and IV antibiotics last 24h. Continue IV hydromorphone for pain or dyspnea. Family and friends have been able to gather. Admission and Anticipated Discharge Date Admission Date: September 06, [address] Bashir was seen in the company of his family he was conversant slightly sedate complaining of pruritus and pain in his left shoulder and sacral area Physical Exam Physical Exam: He is fatigued but conversant. In minor distress Currently is not tachycardic nor with respiratory distress Results & Data Results & Data Vital Signs (Past 12 Hours) Vital Signs O2 Del Method 09/11/23 19:30 Room Air PG Care Time/CCT Total # of Minutes Spent Total Time Spent with Patient: Total time spent is greater than 50% in coordination of care (as documented) at patient's floor/unit and/or counseling patient: Coding Level of Care Code 02098 SUB INP/OBS CARE 2/35MIN Diagnoses Septic shock A41.9; R65.21 FILI (acute kidney injury) N17.9 Heart failure with mid-range ejection fraction I50.22 Atrial fibrillation, permanent I48.21
--- NOTE | 2023-09-12 16:03 | Palliative Care Progress Note ---
Date of Service September 12, 2023 Assessment & Plan (1) Weakness generalized: (2) Dyspnea and respiratory abnormalities: (3) Failure to thrive syndrome, adult: (4) Palliative care by specialist: (5) Persistent wound pain: Plan Continue comfort focused care. 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 He feels that he has adequate relief with the as needed Dilaudid IV available to him. No other acute needs were identified. Additional psychosocial support and reassurance were provided. Overall focus remains on comfort and quality of life. He is happy that he was able to enjoy additional time with family and states that that has made this final chapter more peaceful for him. Thank you for allowing us to participate in the ongoing care of this patient. Please page with any additional concerns. Atul Estrada DNP Director, Palliative Medicine Admission and Anticipated Discharge Date Admission Date: September 06, [address] Dumontjalen is seen together with his at bedside. He appears more comfortable. He denies any acute distress except to point out that his lower back is somewhat uncomfortable but improves with shifting positions and the occasional use of Dilaudid for pain. He has not been taking all lot of p.o. but is enjoying sips of kalie yesica and orange sherbet. He states he is overall not feeling very hungry. He has generalized weakness. He has some mild dyspnea. He reports that his abdomen feels distended but not as bad as when he first came in. He does not feel like he needs another paracentesis at this time. Review of Systems Review of Systems: All systems reviewed & are unremarkable except as noted in Subjective Physical Exam Physical Exam: Resting in bed, tired appearing. Awake and alert for this visit. Color is pale. There is bitemporal wasting. Pupils are equal and round, reactive to light. Neck is supple and there is no stridor. There is mild increased respiratory effort with slight use of respiratory muscles. There is some conversational dyspnea. Anterior lung sounds indicate rhonchi with diminished bases. He is slightly tachycardic at 110 apical. There is a murmur noted. Abdomen is distended but soft. There is mild diffuse tenderness to exam. No obvious fluid wave. Bowel sounds are diminished. He has generalized weakness. There is edema to the upper extremities 1 to early 2+, there is significant edema to lower extremities 2-3+ pitting. There is venous insufficiency changes to the bilateral lower extremities with erythematous changes. He is awake alert and oriented x 3. He does tire easily and has some difficulty hearing at times. Results & Data Vital Signs (Past 12 Hours) Vital Signs O2 Del Method 09/12/23 08:01 Room Air PG Care Time/CCT Total # of Minutes Spent Total Time Spent: 65 Total Time Spent with Patient: Total time spent is greater than 50% in coordination of care (as documented) at patient's floor/unit and/or counseling patient: [place] [address] SUB INP/OBS CARE 3/50MIN Patient Type Established Medical Decision Making High Complexity Diagnoses Weakness generalized R53.1 Dyspnea and respiratory abnormalities R06.00; R06.89 Failure to thrive syndrome, adult R62.7 Palliative care by specialist Z51.5 Persistent wound pain R52
[2023-09-12] MEDS: hydrOXYzine HCl 25 MG TAB PO PRN (22:23)
--- NOTE | 2023-09-13 15:26 | Palliative Care Progress Note ---
Date of Service September 13, 2023 Assessment & Plan (1) Weakness generalized: (2) Dyspnea and respiratory abnormalities: (3) Failure to thrive syndrome, adult: (4) Palliative care by specialist: (5) Persistent wound pain: Plan Continue comfort focused care. 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 Not interested in home hospice, with progressing dementia, not enough caregiver support, does not want his children caring for him Thank you for allowing us to participate in the ongoing care of this patient. Please page with any additional concerns. 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 Awake and alert for this visit. Color is pale. There is bitemporal wasting. Pupils are equal and round, reactive to light. Neck is supple and there is no stridor. There is mild increased respiratory effort with slight use of respiratory muscles. There is some conversational dyspnea. Anterior lung sounds indicate rhonchi with diminished bases. S1S2, + murmur noted. Abdomen is distended but soft. There is mild diffuse tenderness to exam. No obvious fluid wave. Bowel sounds are diminished. He has generalized weakness. There is edema to the upper extremities 1 to early 2+, there is significant edema to lower extremities 2-3+ pitting. There is venous insufficiency changes to the bilateral lower extremities with erythematous changes. He is awake alert and oriented x 3. He does tire easily and has some difficulty hearing at times. Results & Data Vital Signs (Past 12 Hours) Vital Signs O2 Del Method 09/13/23 08:52 Room Air PG Care Time/CCT Total # of Minutes Spent Total Time Spent: 65 Total Time Spent with Patient: Total time spent is greater than 50% in coordination of care (as documented) at patient's floor/unit and/or counseling patient: [place] [address] SUB INP/OBS CARE 3/50MIN Patient Type Established Medical Decision Making High Complexity Diagnoses Weakness generalized R53.1 Dyspnea and respiratory abnormalities R06.00; R06.89 Failure to thrive syndrome, adult R62.7 Palliative care by specialist Z51.5 Persistent wound pain R52
--- NOTE | 2023-09-13 16:09 | Hospitalist Progress Note ---
Date of Service September 13, 2023 Assessment & Plan (1) Failure to thrive syndrome, adult: Plan: Continue comfort focused care. 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 He feels that he has adequate relief with the as needed Dilaudid IV available to him. 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 Overall focus remains on comfort and quality of life. Thank you for allowing us to participate in the ongoing care of this patient. Please page with any additional concerns. (2) Persistent wound pain: Admission and Anticipated Discharge Date Admission Date: September 06, 2023 Ralph Saavedra remains very fatigued but conversant he is surprisingly mentally sharp for being on comfort measures now for 4 days he is still taking small amounts of oral intake family is at the bedside and supportive Physical Exam Physical Exam: He is fatigued but conversant. currently pruritus is controlled with Vistaril and pain is controlled with IV hydromorphone Currently is not tachycardic nor with respiratory distress Results & Data Results & Data Vital Signs (Past 12 Hours) Vital Signs O2 Del Method 09/13/23 08:52 Room Air PG Care Time/CCT Total # of Minutes Spent Total Time Spent with Patient: Total time spent is greater than 50% in coordination of care (as documented) at patient's floor/unit and/or counseling patient: Coding Level of Care Code 13793 SUB INP/OBS CARE 1/25MIN Diagnoses Failure to thrive syndrome, adult R62.7 Persistent wound pain R52
--- NOTE | 2023-09-14 19:59 | Hospitalist Progress Note ---
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 Dr. Bashir feels current regimen is managing his needs, he was asked if he was to go home on hospice he says that not an option but is interested in perhaps going to a nursing facility however he wants to consider since he is not succumb to his illness perhaps resuming acute treatment labs will be checked in the morning of 09/14. Not interested in home hospice, with progressing dementia, not enough caregiver support, does not want his children caring for him (2) Dyspnea and respiratory abnormalities: Plan: Cardiac amyloid cardiomyopathy (3) Persistent wound pain: Plan: Patient has heel wound previously cultured Pseudomonas with persistent drainage. If we do reverses comfort care measures will likely need to address this with wound VAC and wound care management. Currently not on any antibiotics and is not interested in restarting those at this time. Admission and Anticipated Discharge Date Admission Date: September 06, [address] Tosha camacho conversant he janice mentally intact we had a long discussion today and he wishes to consider resending his comfort care offer and going back to subacute care with eventual transfer to local [facility] facility for supportive care perhaps PT. He wants night to think about it but was wishes to request we will check labs in the morning his family is at bedside and supportive. Physical Exam Physical Exam: He is fatigued but conversant. Patient is less pruritus and is only using occasional IV hydromorphone at this point time Currently is not tachycardic nor with respiratory distress Results & Data Results & Data Vital Signs (Past 12 Hours) Vital Signs O2 Del Method 09/14/23 15:45 Room Air 09/14/23 08:00 Room Air PG Care Time/CCT Total # of Minutes Spent Total Time Spent with Patient: Total time spent is greater than 50% in coordination of care (as documented) at patient's floor/unit and/or counseling patient: Coding Level of Care Code 27240 SUB INP/OBS CARE 2/35MIN Diagnoses Weakness generalized R53.1 Dyspnea and respiratory abnormalities R06.00; R06.89 Persistent wound pain R52
[2023-09-15 06:23] LABS: Hematocrit (blood only) 26.1 % (42.0-52.0); Hemoglobin 8.7 g/dl (14.0-18.0); Mean Corpuscular Hemoglobin 32.2 pg (25.0-34.0); Mean Corpuscular Hgb Conc 33.3 g/dL (32.0-36.0); Mean Corpuscular Volume 96.7 fL (80.0-100.0); Mean Platelet Volume 11.6 fL (9.4-12.4); Nucleated RBC # (auto) 0.02 K/uL (0.00-0.12); Nucleated RBC % (auto) 0.2 %; Platelet Count 111 K/uL (130-400); RDW Coefficient of Variation 15.7 % (11.5-14.5); RDW Standard Deviation 54.7 fL (36.4-46.3); White Blood Count 8.05 K/ul (4.8-10.8)
[2023-09-15 06:46] LABS: Basophils # (auto) 0.02 K/uL (0.00-0.20); Basophils % (auto) 0.2 %; Eosinophils # (auto) 0.02 K/uL (0.00-0.50); Eosinophils % (auto) 0.2 %; Immature Granulocytes # (auto) 0.05 K/uL (0.01-0.20); Immature Granulocytes % (auto) 0.6 %; Lymphocytes # (auto) 0.34 K/uL (1.20-3.40); Lymphocytes % (auto) 4.2 %; Monocytes # (auto) 0.22 K/uL (0.11-0.59); Monocytes % (auto) 2.7 %; Neutrophils % (auto) 92.1 %; Polychromasia 1+; Target Cells 1+
[2023-09-15 07:32] LABS: Alanine Aminotransferase < 3 U/L (7-52); Albumin Globulin Ratio 0.8 (0.9-2); Albumin Level 2.8 gm/dl (3.4-5.0); Alkaline Phosphatase 199 U/L (34-104); Anion Gap 13 (3-11); Aspartate Aminotransferase 15 U/L (13-39); BUN Creatinine Ratio 35.2 (10-20); Blood Urea Nitrogen 153 mg/dl (6-23); Calcium 8.8 mg/dl (8.6-10.3); Carbon Dioxide 22 mmol/L (21-32); Chloride 100 mmol/L (98-107); Creatinine Clr Calc Pharmacy 15.9 ml/min; Est GFR (African American) 13.9 ml/min; Globulin 3.4 gm/dl (2.5-4.0); Glucose 81 mg/dl (70-99(Fasting)); Magnesium 2.4 mg/dl (1.7-2.4); Potassium 5.3 mmol/L (3.5-5.1); Sodium 135 mmol/L (136-145); Total Protein 6.2 gm/dl (6.0-8.3)
[2023-09-15] MEDS: PLASMA-LYTE A 1,000 ML IV SCH (11:06)
[2023-09-15] MEDS: MIDODRINE HCL 2.5 MG TAB PO SCH (11:52)
--- NOTE | 2023-09-15 16:35 | Hospitalist Progress Note ---
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 Dr. Bashir feels current pain regimen is managing his needs, he was asked if he was to go home on hospice he says that not an option but is interested in perhaps going to a nursing facility. it was stressed that if we change from comfort care that this will not change his overall prognosis Not interested in home hospice, with progressing dementia, not enough caregiver support, does not want his children caring for him, [facility] low level plasmalyte to ovoid excessive third spacing and start midodrine to support blood pressure (2) Dyspnea and respiratory abnormalities: Plan: Cardiac amyloid cardiomyopathy (3) Persistent wound pain: Plan: Patient has heel wound previously cultured Pseudomonas with persistent drainage. If we do reverses comfort care measures will likely need to address this with wound VAC and wound care management. Currently not on any antibiotics and is not interested in restarting those at this time. Admission and Anticipated Discharge Date Admission Date: September 06, [address] Bashir is now supportive of some IVF knowing that his BUN has increased to 150, blood pressures are low, family and pt understand that IVF will not create a situation where he will improve dramatically but will maybe extend his life a few days or weeks, his performance status is poor and he cannot even sit up Physical Exam Physical Exam: He is fatigued but conversant. Patient is less pruritus and is only using occasional IV hydromorphone at this point time Currently is not tachycardic nor with respiratory distress Results & Data Results & Data Vital Signs (Past 12 Hours) Vital Signs Temp Pulse Resp BP Pulse Ox O2 Del Method 09/15/23 15:16 97.9 F 60 18 94/61 L 98 Room Air 09/15/23 10:52 70 16 90/64 L 97 Room Air 09/15/23 08:15 Room Air Laboratory Results reivew cbc review chemistry PG Care Time/CCT Total # of Minutes Spent Total Time Spent with Patient: Total time spent is greater than 50% in coordination of care (as documented) at patient's floor/unit and/or counseling patient: Coding Level of Care Code 79097 SUB INP/OBS CARE 2/35MIN Diagnoses Weakness generalized R53.1 Dyspnea and respiratory abnormalities R06.00; R06.89 Persistent wound pain R52
[2023-09-16 09:00] LABS: BUN Creatinine Ratio 36.7 (10-20); Calcium 8.9 mg/dl (8.6-10.3); Creatinine Clr Calc Pharmacy 15.7 ml/min; Est GFR (African American) 13.6 ml/min; Est GFR (Non-African American) 11.7 ml/min; Potassium 5.4 mmol/L (3.5-5.1)
--- NOTE | 2023-09-16 16:50 | Hospitalist Progress Note ---
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 He is progressing with his renal failure to acute kidney failure. At this time IV fluids seems to be not compassionate as will prolong suffering will reduce fluid rate to KVO will not check any additional labs or vital signs. Despite his desire to get home he denies wanting to go home with hospice care he seems unrealistic and understanding that he has not been out of bed for 10 days and the likelihood of rehabilitation is poor given the fact he is got a cardiomyopathy. Not interested in home hospice, with progressing dementia, not enough caregiver support, does not want his children caring for him, [facility] Discontinuation of midodrine support continue to offer for symptom based care (2) Dyspnea and respiratory abnormalities: Plan: Cardiac amyloid cardiomyopathy (3) Persistent wound pain: Plan: Patient has heel wound previously cultured Pseudomonas with persistent drainage. If we do reverses comfort care measures will likely need to address this with wound VAC and wound care management. Currently not on any antibiotics and is not interested in restarting those at this time. Admission and Anticipated Discharge Date Admission Date: September 06, 2023 Subjective Patient is lethargic and today he is making less cognitive sense with the line of questioning he is asking. He did have some IV fluid overnight with worsening of BUN and creatinine. Today he is asking to get out of bed and walk to the bathroom where he has not been out of bed for 10 days when he was supplied with this information he seems to be followed by it and says no no I do standing up a nd walk around. Patient is too weak that he can almost not lift his hands to his face he cannot reposition himself in bed. He seems unaccepting of the fact that he is too weak to walk. Discussion with in an alternative room in a private setting she is feeling he is more confused and lethargic and she does not support transitioning away from comfort measures and does support continuing on the line of comfort measures. To this and we will going to reduce IV fluid to KVO will cease taking laboratories continue to support symptom control with hydromorphone Ativan and Atarax. Although he has lasted longer than we had thought with escalation of BUN and creatinine and poor oral intake he will continue to progress in the dying process. Physical Exam Physical Exam: He is awake he is oriented he is with some mild confusion today he is easily lethargic and sleeps easily. He appears to be in mild distress but at this point time does not want any medication Results & Data Results & Data Vital Signs (Past 12 Hours) Vital Signs Pulse Resp BP Pulse Ox O2 Del Method 09/16/23 07:40 Room Air 09/16/23 07:26 70 16 102/66 95 Room Air Laboratory Results reviewed chemistry Personally discussed case with cardiology PG Care Time/CCT Total # of Minutes Spent Total Time Spent with Patient: Total time spent is greater than 50% in coordination of care (as documented) at patient's floor/unit and/or counseling patient: Coding Level of Care Code 44151 SUB INP/OBS CARE 2/35MIN Diagnoses Weakness generalized R53.1 Dyspnea and respiratory abnormalities R06.00; R06.89 Persistent wound pain R52
[2023-09-17] MEDS: LOPERAMIDE HCL 2 MG CAP PO STA (14:41)
--- NOTE | 2023-09-17 15:16 | Hospitalist Progress Note ---
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 He is progressing with his renal failure to acute kidney failure. 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 He continues to be unrealistic regarding understanding that he has not been out of bed for 11 days and the likelihood of rehabilitation is poor given the fact he is got a cardiomyopathy. Not interested in home hospice, with progressing dementia, not enough caregiver support, does not want his children caring for him, He had [facility] but this time the family wants him to stay here. Discontinuation of midodrine support continue to offer for symptom based care (2) Dyspnea and respiratory abnormalities: Plan: Dyspnea is modest, cardiac amyloid cardiomyopathy (3) Persistent wound pain: Plan: Patient has heel wound previously cultured Pseudomonas with persistent drainage. Currently not on any antibiotics and is not interested in restarting those at this time. did have some diarrhea and will be offered Imodium Plan Plan is to try to walk the line between offering comfort care and supporting some of his request within reason he did request labs to be checked on 09/18/23 Admission and Anticipated Discharge Date Admission Date: September 06, 2023 Subjective Patient remains lethargic and his requests continue to be unrealistic such as getting out of bed to the bathroom, when he cannot walk or stand. He did have diarrhea. he has not been out of bed for 10 days Patient remains so weak that he can almost not lift his hands to his face he cannot reposition himself in bed. He seems unaccepted of the fact that he is too weak to walk. Discussion with she continues to support continuing on the line of comfort measures. To this end we will going to reduce IV fluid to KVO support symptom control with hydromorphone Ativan and Atarax. Pt requested checking of labs on 09/18/23 Although he has lasted longer than we had thought with escalation of BUN and creatinine and poor oral intake he will continue to progress in the dying process. Physical Exam Physical Exam: He is awake he is oriented x2 he is with some mild confusion he is easily lethargic and sleeps easily. He appears to be in mild distress but at this point time does not want any medication he has worsened ascites and peripheral LE Edema Results & Data Results & Data Vital Signs (Past 12 Hours) Vital Signs O2 Del Method 09/17/23 07:25 Room Air PG Care Time/CCT Total # of Minutes Spent Total Time Spent with Patient: Total time spent is greater than 50% in coordination of care (as documented) at patient's floor/unit and/or counseling patient: Coding Level of Care Code 96541 SUB INP/OBS CARE 2/35MIN Diagnoses Weakness generalized R53.1 Dyspnea and respiratory abnormalities R06.00; R06.89 Persistent wound pain R52
[2023-09-18 06:47] LABS: Albumin Level 2.7 gm/dl (3.4-5.0); Anion Gap 15 (3-11); Bilirubin,Total 1.1 mg/dl (0.2-1.0); Calcium 8.7 mg/dl (8.6-10.3); Carbon Dioxide 21 mmol/L (21-32); Chloride 102 mmol/L (98-107); Potassium 5.3 mmol/L (3.5-5.1); Sodium 138 mmol/L (136-145)
[2023-09-18 06:53] LABS: Creatinine Clr Calc Pharmacy 15.8 ml/min; Est GFR (African American) 13.7 ml/min; Est GFR (Non-African American) 11.8 ml/min; Glucose 79 mg/dl (70-99(Fasting))
[2023-09-18 07:31] LABS: Alanine Aminotransferase < 3 U/L (7-52); Alkaline Phosphatase 192 U/L (34-104); Aspartate Aminotransferase 17 U/L (13-39)
[2023-09-18 08:29] LABS: Total Protein 6.1 gm/dl (6.0-8.3)
[2023-09-18 08:32] LABS: Globulin 3.4 gm/dl (2.5-4.0)
[2023-09-18 08:34] LABS: Albumin Globulin Ratio 0.8 (0.9-2)
[2023-09-18 09:04] LABS: BUN Creatinine Ratio 35.5 (10-20); Blood Urea Nitrogen 156 mg/dl (6-23)
[2023-09-18] MEDS ORDERED: SODIUM CHLORIDE 0.65% NA SOLN 45 ML (OCEAN) PRN (09:40)
[2023-09-18 10:27] LABS: Hematocrit (blood only) 25.2 % (42.0-52.0); Hemoglobin 8.3 g/dl (14.0-18.0); Mean Corpuscular Hgb Conc 32.9 g/dL (32.0-36.0); Mean Corpuscular Volume 97.3 fL (80.0-100.0); Mean Platelet Volume 12.1 fL (9.4-12.4); Nucleated RBC # (auto) 0.02 K/uL (0.00-0.12); Nucleated RBC % (auto) 0.3 %; Platelet Count 115 K/uL (130-400); RDW Coefficient of Variation 15.9 % (11.5-14.5); RDW Standard Deviation 55.8 fL (36.4-46.3); Red Blood Count 2.59 M/uL (4.70-6.10); White Blood Count 6.36 K/ul (4.8-10.8)
[2023-09-18] MEDS: NYSTATIN SUSP 500,000 U/5 ML UDC PO SCH (13:30)
[2023-09-18] MEDS: LOPERAMIDE HCL 2 MG CAP PO PRN (15:38)
--- NOTE | 2023-09-18 20:14 | Hospitalist Progress Note ---
Date of Service September 18, 2023 Assessment & Plan (1) Comfort measures only status: Plan: remains on comfort care measures only but has had multiple medical requests last few days including basic AM labs, IVF, and c diff testing today (returned negative) he is markedly awake & alert despite significant azotemia (BUN 150-160 range) he is profoundly weak with severe anorexia but has mentioned to multiple providers & team members that he wishes to attempt rehab prior attending physicians and myself have told Dr Bashir that doing PT/OT is simply not possible and we have all encouraged him to simply be comfortable, enjoy time with his family/friends, etc. today we reviewed options for his disposition - home vs SNF vs staying hospitalized at [facility] there was a referral made to the [facility] SN[facility] late last week and they did accept his referral he did voice today that he wanted to [facility] however, after discussing things further with his , her preference is for him to remain hospitalized at [facility] for end-of-life care I spoke several times with case management today regarding the above (2) Palliative care patient: Plan: as above in #1 (3) SBP (spontaneous bacterial peritonitis): Plan: 2nd to pseudomonas based on peritoneal fluid cx early this admission (4) Bacteremia due to Pseudomonas: Plan: source - ascites/SBP; left foot ulcer (5) Septic shock: Plan: required pressors in ICU early in admission (6) Failure to thrive syndrome, adult: (7) Acute renal failure: (8) Heart failure with mid-range ejection fraction: (9) Cardiac amyloidosis: (10) Atrial fibrillation, permanent: (11) Ascites: (12) Status cardiac pacemaker: (13) Diarrhea: Plan: c diff negative (14) Foot ulcer, left: Plan: cont local wound care cx with pseudomonas early this admission (15) Candidiasis of mouth and esophagus: Plan: start nystatin solution - 5ml qid swish/spit Plan support given to patient, his , and his sister Admission and Anticipated Discharge Date Admission Date: September 06, [address] Bashir was resting comfortably in bed denied pain in all locations no cp, no headache, no abd pain, no leg or foot pain did state mouth was dry and somewhat sore he reports he is eating, but flowsheets showed 0% intake at breakfast he was incredibly awake/alert despite markedly elevated BUN his & his sister were present at bedside sister asked when he might be leaving asked Dr Bashir his wishes for dispo - stay here at [facility] vs go home vs go to SNF he immediately said he wanted to go [facility] 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 and that he likes the people there he mentioned also wanting to "do rehab" there I told Dr Bashir that doing PT here or there was simply not possible and that he should focus on his comfort only he asked about his AM labs today later in the day, after having a loose stool, he asked nursing to send the stool for c diff to honor his wishes I checked a c diff - returned negative Physical Exam Physical Exam: gen - looks VERY weak, generalized muscle wasting especially of facial muscles/arms/legs, incredibly awake, alert mouth - MM very dry with thrush on buccal mucosa & tongue neck - no JVD heart - RRR, s1 s2 lungs - decreased BS b/l especially L base; no rales; no increased work of breathing abd - distended, BS+, NT ext - 1+ edema b/l feet; pulses 1+ b/l feet at best neuro - tremor of arms vs asterixis - favor latter skin - generalized pallor Results & Data Results & Data Vital Signs (Past 12 Hours) Vital Signs O2 Del Method 09/18/23 09:50 Room Air Laboratory Results Laboratory Results 09/18/23 09/18/23 05:44 17:00 WBC 6.36 RBC 2.59 L Hgb 8.3 L Hct 25.2 L MCV 97.3 MCH 32.0 MCHC 32.9 RDW Std Deviation 55.8 H RDW Coeff of Mariel 15.9 H Plt Count 115 L MPV 12.1 Absolute Nucleated RBC 0.02 Nucleated RBC % (auto) 0.3 Sodium 138 Potassium 5.3 H Chloride 102 Carbon Dioxide 21 Anion Gap 15 H BUN 156 H Creatinine 4.40 H Est Cr Clr Drug Dosing 15.8 Est GFR ( Amer) 13.7 Est GFR (Non-Af Amer) 11.8 BUN/Creatinine Ratio 35.5 H Glucose 79 Calcium 8.7 Total Bilirubin 1.1 H AST 17 ALT < 3 L Alkaline Phosphatase 192 H Total Protein 6.1 Albumin 2.7 L Globulin 3.4 Albumin/Globulin Ratio 0.8 L Stl C. diff Tox B Gene Negative Cdiff Gene PG Care Time/CCT Total # of Minutes Spent Total Time Spent with Patient: Total time spent is greater than 50% in coordination of care (as documented) at patient's floor/unit and/or counseling patient: Coding Level of Care Code 45549 SUB INP/OBS CARE /25MIN Diagnoses Comfort measures only status Z51.5 Palliative care patient Z51.5 SBP (spontaneous bacterial peritonitis) K65.2 Bacteremia due to Pseudomonas R78.81; B96.5 Septic shock A41.9; R65.21 Failure to thrive syndrome, adult R62.7 Acute renal failure N17.9 Acute renal failure type: unspecified Heart failure with mid-range ejection fraction I50.22 Cardiac amyloidosis E85.4; I43 Atrial fibrillation, permanent I48.21 Ascites R18.8 Status cardiac pacemaker Z95.0 Diarrhea R19.7 Foot ulcer, left L97.529 Candidiasis of mouth and esophagus B37.81; B37.0 (7) Acute renal failure Acute renal failure type: unspecified Qualified Code(s): N17.9 - Acute kidney failure, unspecified
[2023-09-18] MEDS: HYDROmorphone INJ 0.5 MG/0.5 ML SYR IV PRN (20:42)
--- NOTE | 2023-09-19 14:28 | Hospitalist Progress Note ---
Date of Service September 19, 2023 Assessment & Plan (1) Comfort measures only status: Plan: - [employer], w/ some medical requests last few days including basic IVF, and previously had requested some labs and c diff testing (returned negative) -Despite severe azotemia, BUN [id number], he has been awake and alert although intermittently has some confusion. Severe anorexia with profound weakness. Has been assessed both today and by multiple prior attendings, unfortunately all have d/w Dr Bashir that doing PT/OT is simply not possible and we have all encouraged him to simply be comfortable, enjoy time with his family/friends, etc. -Previously referral had been made to the [facility] SNF and patient was accepted patient had voiced a desire to pursue this however he is too weak to rehab. There was a referral made to the [facility] SNF late last week and they did accept his referral. Multiple previous discussions w/ providers regarding potential [facility], ultimately on discw/ patient and his she strongly prefers strongly prefers for him to remain at [facility] for end-of-life care which is the current plan. 09/18 answers questions appropriately, and awakens for conversation, however severely weak and is not able to turn in bed or flex at the shoulder against antigravity without assistance. Seen in the afternoon on reassessment, expresses comfort with current plan of care and has no additional needs or requests at time of that evaluation. (2) Palliative care patient: Plan: as above in #1 (3) SBP (spontaneous bacterial peritonitis): Plan: 2nd to pseudomonas based on peritoneal fluid cx early this admission (4) Bacteremia due to Pseudomonas: Plan: source - ascites/SBP; left foot ulcer (5) Septic shock: Plan: required pressors in ICU early in admission (6) Failure to thrive syndrome, adult: (7) Acute renal failure: (8) Heart failure with mid-range ejection fraction: (9) Cardiac amyloidosis: (10) Atrial fibrillation, permanent: (11) Ascites: (12) Status cardiac pacemaker: (13) Diarrhea: Plan: c diff negative (14) Foot ulcer, left: Plan: cont local wound care cx with pseudomonas early this admission (15) Candidiasis of mouth and esophagus: Plan: start nystatin solution - 5ml qid swish/spit Admission and Anticipated Discharge Date Admission Date: September 06, 2023 Subjective Seen at the bedside in the morning, and again on afternoon reassessment when his is present. Fatigued, but alert. Patient is frustrated as he feels so weak he cannot even move his arms or shoulders without assistance and needs to be turned in bed. Notes that he was recently turned in bed and does not need anything right now. Trang is present at bedside, no questions at time of visit, affirms decision to continue [employer] within expectation of Dr. Membreno of passing in the hospital. Physical Exam Physical Exam: General: Weak, severely ill-appearing. Generalized muscle wasting. Pulm: Symmetrical chest rise. No increase in work of breathing. No respiratory distress. Abdominal: Softly distended Extremities: Distal extremity tremor present in arms bilaterally, severe proximal muscle weakness limiting ability to roll in bed or lift arms Results & Data Results & Data Vital Signs (Past 12 Hours) Vital Signs O2 Del Method 09/19/23 08:30 Room Air PG Care Time/CCT Total # of Minutes Spent Total Time Spent with Patient: Total time spent is greater than 50% in coordination of care (as documented) at patient's floor/unit and/or counseling patient: Coding Level of Care Code 81803 SUB INP/OBS CARE 2/35MIN Diagnoses Comfort measures only status Z51.5 Palliative care patient Z51.5 SBP (spontaneous bacterial peritonitis) K65.2 Bacteremia due to Pseudomonas R78.81; B96.5 Septic shock A41.9; R65.21 Failure to thrive syndrome, adult R62.7 Acute renal failure N17.9 Acute renal failure type: unspecified Heart failure with mid-range ejection fraction I50.22 Cardiac amyloidosis E85.4; I43 Atrial fibrillation, permanent I48.21 Ascites R18.8 Status cardiac pacemaker Z95.0 Diarrhea R19.7 Foot ulcer, left L97.529 Candidiasis of mouth and esophagus B37.81; B37.0 (7) Acute renal failure Acute renal failure type: unspecified Qualified Code(s): N17.9 - Acute kidney failure, unspecified
--- NOTE | 2023-09-20 18:39 | Hospitalist Progress Note ---
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 He is progressing with his renal failure to acute kidney failure. Patient will have his IV fluids stopped he says he will try to take oral intake as best he can he particularly states he enjoys arts used to repair. Patient continues to talk about the future but when discussing his mortality in a more recent context he says he knows he is dying then at times he talks about doing PT and getting home he seems to be more unrealistic or having more difficult times keeping a cohesive thought and he falls asleep easily during exam Continue with symptom based care at this point in time (2) Dyspnea and respiratory abnormalities: Plan: Dyspnea is modest, cardiac amyloid cardiomyopathy (3) Persistent wound pain: Plan: Patient has heel wound previously cultured Pseudomonas with persistent drainage. Currently not on any antibiotics Plan Patient is going to reenter to comfort care measures at this point in time stopping KVO fluids no longer checking labs supporting symptoms for symptom control as best we can Admission and Anticipated Discharge Date Admission Date: September 06, 2023 Subjective Casey discussion with the patient and his regarding his status is at times he asked questions such as wanting rehab when he is out of bed when he has been not able to get a bed from was 2 weeks now. I discussed with the patient the fact that he is likely going to soon and if he does not he will likely be succumb to a [facility] if we do support him. After discussion he was in agreement to stop IV fluids continue to try to take oral medications best he can At this point time he denies pain or discomfort and does not appear to be a in any significant respiratory distress Physical Exam Physical Exam: He is awake he is oriented x2 he is with some mild confusion he is easily lethargic and sleeps easily. He appears to be in mild distress but at this point time does not want any medication he has worsened ascites and peripheral LE Edema Results & Data Results & Data Vital Signs (Past 12 Hours) Vital Signs Pulse Resp BP Pulse Ox O2 Del Method 09/20/23 08:33 Room Air 09/20/23 08:05 61 14 96/63 L 96 Room Air PG Care Time/CCT Total # of Minutes Spent Total Time Spent with Patient: Total time spent is greater than 50% in coordination of care (as documented) at patient's floor/unit and/or counseling patient: Coding Level of Care Code 81177 SUB INP/OBS CARE 235MIN Diagnoses Weakness generalized R53.1 Dyspnea and respiratory abnormalities R06.00; R06.89 Persistent wound pain R52
--- NOTE | 2023-09-21 18:08 | Hospitalist Progress Note ---
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 He is progressing with his renal failure to acute kidney failure. Patient will have his IV fluids stopped he says he will try to take oral intake as best he can he particularly states he enjoys arts used to repair. Patient continues to talk about the future but when discussing his mortality in a more recent context he says he knows he is dying then at times he talks about doing PT and getting home he seems to be more unrealistic or having more difficult times keeping a cohesive thought and he falls asleep easily during exam Continue with symptom based care at this point in time (2) Dyspnea and respiratory abnormalities: Plan: Dyspnea is modest, cardiac amyloid cardiomyopathy (3) Persistent wound pain: Plan: Patient has heel wound previously cultured Pseudomonas with persistent drainage. Currently not on any antibiotics Plan Patient is going to reenter to comfort care measures at this point in time stopping KVO fluids no longer checking labs supporting symptoms for symptom control as best we can Admission and Anticipated Discharge Date Admission Date: September 06, 2023 Subjective Casey discussion with the patient and his regarding his status is at times he asked questions such as wanting rehab when he is out of bed when he has been not able to get a bed from was 2 weeks now. I discussed with the patient the fact that he is likely going to soon and if he does not he will likely be succumb to a [facility] if we do support him. After discussion he was in agreement to stop IV fluids continue to try to take oral medications best he can At this point time he denies pain or discomfort and does not appear to be a in any significant respiratory distress Physical Exam Physical Exam: He is awake he is oriented x2 he is with some mild confusion he is easily lethargic and sleeps easily. He appears to be in mild distress but at this point time does not want any medication he has worsened ascites and peripheral LE Edema Results & Data Results & Data Vital Signs (Past 12 Hours) Vital Signs O2 Del Method 09/21/23 09:06 Room Air PG Care Time/CCT Total # of Minutes Spent Total Time Spent with Patient: Total time spent is greater than 50% in coordination of care (as documented) at patient's floor/unit and/or counseling patient: Coding Level of Care Code 19884 SUB INP/OBS CARE 04/20MIN Diagnoses Weakness generalized R53.1 Dyspnea and respiratory abnormalities R06.00; R06.89 Persistent wound pain R52
--- NOTE | 2023-09-22 08:13 | Hospitalist Progress Note ---
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 He is progressing with his renal failure to acute kidney failure. He is weakened and cannot reposition himself with resultant decubitus ulcer on his sacrum stage 3 poa Patient only with modest po intake, some small nibbles of food Patient continues to talk about the future but when discussing his mortality in a more recent context he says he knows he is dying, but at times also discusses getting better Continue with symptom based care at this point in time, once hs is less cognitive family is supoportive of transition to full comfort care (2) Dyspnea and respiratory abnormalities: Plan: Dyspnea is modest, cardiac amyloid cardiomyopathy (3) Persistent wound pain: Plan: Patient has heel wound previously cultured Pseudomonas with persistent drainage. wounds on left heel and sacrum Currently not on any antibiotics Plan Patient is going to have symptom based care and reenter to comfort care measures when he declines to become less alert Admission and Anticipated Discharge Date Admission Date: September 06, 2023 Subjective pt is becoming less cognitively intact, sleepy some slurring or words, not moving much photo of decubitus ulcer with some concern for surrounding erythema, decreased po intake Physical Exam Physical Exam: awake and oriented x3, but less sharp mild distress but pt does not want increased pain medicines Results & Data Results & Data Vital Signs (Past 12 Hours) Vital Signs O2 Del Method 09/21/23 22:52 Room Air PG Care Time/CCT Total # of Minutes Spent Total Time Spent with Patient: Total time spent is greater than 50% in coordination of care (as documented) at patient's floor/unit and/or counseling patient: Coding Level of Care Code 94540 SUB INP/OBS CARE 04/20MIN Diagnoses Weakness generalized R53.1 Dyspnea and respiratory abnormalities R06.00; R06.89 Persistent wound pain R52
--- NOTE | 2023-09-23 22:15 | Hospitalist Progress Note ---
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 He is progressing with his renal failure to acute kidney failure. He is weakened and cannot reposition himself with resultant decubitus ulcer on his sacrum stage 3 poa Patient only with modest po intake, some small nibbles of food Patient continues to talk about the future but when discussing his mortality in a more recent context he says he knows he is dying, but at times also discusses getting better Continue with symptom based care at this point in time, once hs is less cognitive family is supoportive of transition to full comfort care. Patient appears slightly more confused today. (2) Dyspnea and respiratory abnormalities: Plan: Dyspnea is modest, cardiac amyloid cardiomyopathy (3) Persistent wound pain: Plan: Patient has heel wound previously cultured Pseudomonas with persistent drainage. wounds on left heel and sacrum Currently not on any antibiotics Plan Patient is going to have symptom based care and reenter to comfort care measures when he declines to become less alert Admission and Anticipated Discharge Date Admission Date: September 06, 2023 Subjective Patient reports no new symptoms. He reports being comfortable. Spoke with his RN, had dressing change, wound was foul smelling. Patient remains on comfort. at bedside. Patient and family agreeable to plan. Review of Systems Review of Systems: All systems reviewed & are unremarkable except as noted in HPI & below Physical Exam Physical Exam: Patient lying in bed. In NAD. Watching TV with family Results & Data Results & Data Vital Signs (Past 12 Hours) Vital Signs O2 Del Method 09/23/23 19:20 Room Air PG Care Time/CCT Total # of Minutes Spent Total Time Spent with Patient: Total time spent is greater than 50% in coordination of care (as documented) at patient's floor/unit and/or counseling patient: Coding Level of Care Code 80801 SUB INP/OBS CARE 125MIN Diagnoses Weakness generalized R53.1 Dyspnea and respiratory abnormalities R06.00; R06.89 Persistent wound pain R52
--- NOTE | 2023-09-24 15:52 | Hospitalist Progress Note ---
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 He is progressing with his renal failure to acute kidney failure. He is weakened and cannot reposition himself with resultant decubitus ulcer on his sacrum stage 3 poa Patient only with modest po intake, some small nibbles of food Patient continues to talk about the future but when discussing his mortality in a more recent context he says he knows he is dying, but at times also discusses getting better Continue with symptom based care at this point in time, once hs is less cognitive family is supoportive of transition to full comfort care. Patient appears slightly more confused today. (2) Dyspnea and respiratory abnormalities: Plan: Dyspnea is modest, cardiac amyloid cardiomyopathy (3) Persistent wound pain: Plan: Patient has heel wound previously cultured Pseudomonas with persistent drainage. wounds on left heel and sacrum Currently not on any antibiotics Plan Patient is going to have symptom based care and reenter to comfort care measures when he declines to become less alert Admission and Anticipated Discharge Date Admission Date: September 06, 2023 Subjective Patient is resting comfortably watching the [place]. Review of Systems Review of Systems: All systems reviewed & are unremarkable except as noted in HPI & below Physical Exam Physical Exam: Patient lying in bed. In NAD. Watching [place] on TV slightly more edematous/ slightly more confused. PG Care Time/CCT Total # of Minutes Spent Total Time Spent with Patient: Total time spent is greater than 50% in coordination of care (as documented) at patient's floor/unit and/or counseling patient: Coding Level of Care Code 16863 SUB INP/OBS CARE 1/25MIN Diagnoses Weakness generalized R53.1 Dyspnea and respiratory abnormalities R06.00; R06.89 Persistent wound pain R52
[2023-09-24] MEDS: ACETAMINOPHEN 325 MG TAB PO PRN (22:37)
[2023-09-24] MEDS: HYDROmorphone INJ 1 MG/ML SYRINGE IV PRN (22:37)
--- NOTE | 2023-09-25 14:33 | Hospitalist Progress Note ---
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 He is now pursuing palliative measures and remains confused, likely due to uremia He is still eating and drinking small amounts at this point. 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 wounds on left heel and sacrum Currently not on any antibiotics (4) FILI (acute kidney injury): Plan: No further treatment, comfort measures (5) SBP (spontaneous bacterial peritonitis): Plan: Pseudomonas, no further treatment (6) Bacteremia due to Pseudomonas: Plan: No further treatment (7) Cardiac amyloidosis: Plan: Noted, contributed to cardiorenal syndrome Plan Disposition-continued stay in the hospital until he passes as per family's wishes as they cannot care for him at home Admission and Anticipated Discharge Date Admission Date: September 06, 2023 Subjective Patient has some itching on the left side of his upper back and takes as needed Atarax for this. Otherwise has no major complaints. Does seem confused and questions when he will be going home. He is eating somewhat. Physical Exam Constitutional: + thin; no acute distress Respiratory: normal respiratory effort; no cough Cardiovascular: Rate/Rhythm: regular rate and regular rhythm Extremities: + edema (2+ pitting edema to the knees bilaterally) Gastrointestinal (Abdomen): normal bowel sounds, soft, nontender, no hepatosplenomegaly Psychiatric: Orientation: alert, oriented to person, oriented to place and cooperative Results & Data Results & Data Vital Signs (Past 12 Hours) Vital Signs O2 Del Method 09/25/23 09:09 Room Air PG Care Time/CCT Total # of Minutes Spent Total Time Spent with Patient: Total time spent is greater than 50% in coordination of care (as documented) at patient's floor/unit and/or counseling patient: Coding Level of Care Code 16944 SUB INP/OBS CARE 1/25MIN Diagnoses Weakness generalized R53.1 Dyspnea and respiratory abnormalities R06.00; R06.89 Persistent wound pain R52 FILI (acute kidney injury) N17.9 SBP (spontaneous bacterial peritonitis) K65.2 Bacteremia due to Pseudomonas R78.81; B96.5 Cardiac amyloidosis E85.4; I43
[2023-09-26] MEDS ORDERED: GLYCOPYRROLATE 0.2 MG/ML VIAL IV PRN (14:39)
--- NOTE | 2023-09-26 14:49 | Palliative Care Progress Note ---
Date of Service September 26, 2023 Assessment & Plan (1) Dyspnea and respiratory abnormalities: (2) Persistent wound pain: (3) Weakness generalized: (4) Failure to thrive syndrome, adult: (5) Palliative care by specialist: Plan Continue comfort care. 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 He has been require a high utilization of breakthrough medications for symptom management. Anticipated survival of days. As previously noted, his is not interested in home hospice or [facility] facility placement. It is also noted in prior discussions with Dr. Bashir, he shared that his has a progressing dementia, there is not enough caregiver support, and he does not want his children caring for him. Thank you for allowing us to participate in the ongoing care of this patient. Please page with any additional concerns. Atul Estrada DNP Director, Palliative Medicine Admission and Anticipated Discharge Date Admission Date: September 06, [address] Klinerubenjalen is seen at bedside, resting, somnolent, no family present. Case discussed with nursing who advised he has been somewhat more restless and grimacing more through the day. He remains intermittently awake but not as alert. He is not consistently able to follow commands. His appetite has markedly diminished and he takes maybe a few sips/few bites for the entire day. He has begun to ask for an except some as needed medications. They note that his 's agitation/dementia has become more pronounced and exacerbated by the stress of his end-of-life process. She is given coming out to the nursing desk very frequently demanding that they act quickly to improve his comfort or reposition him or provide medication but 1 upon entering the room, Freya Krysten will refuse the care that his is demanding we provide. No additional family is present. The daughters have returned to [place]. Review of Systems Review of Systems: Unobtainable due to cognitive status Physical Exam Physical Exam: Frail, elderly male, cachectic, lying on his right side in bed. Bitemporal wasting noted. There is mild distress noted. He is grimacing intermittently throughout my visit. Pupils continue to be equal and reactive to light. Neck is supple and there is no stridor. Oral mucosa are dry. There is no obvious thrush. Trachea is midline. There is mild respiratory distress with use of accessory muscles. He is not able to answer questions for me. Lungs are diminished bilaterally with a few crackles. Heart tones are S1-S2, apical rate of 92, and there is a grade 2 murmur noted. There is no gross JVD today. Abdomen is distended, with a fluid wave shift noted. Ecchymoses on his flanks remain greater on the left but fading. Bowel sounds are diminished. There is some grimacing and frowning with abdomen palpation. There is generalized weakness with diminished strength throughout. There is +2 edema to the knees. There is venous insufficiency changes. Turgor is decreased, skin atrophy is noted, dry skin is noted, there are multiple areas of erythema and excoriations. He is lethargic and somnolent at the time of my evaluation. Results & Data Vital Signs (Past 12 Hours) Vital Signs O2 Del Method 09/26/23 08:00 Room Air Laboratory Results Laboratory Results WBC 6.36 K/ul (4.8-10.8) 09/18/23 05:44 RBC 2.59 M/uL (4.70-6.10) L 09/18/23 05:44 Hgb 8.3 g/dl (14.0-18.0) L 09/18/23 05:44 Hct 25.2 % (42.0-52.0) L 09/18/23 05:44 MCV 97.3 fL (80.0-100.0) 09/18/23 05:44 MCH 32.0 pg (25.0-34.0) 09/18/23 05:44 MCHC 32.9 g/dL (32.0-36.0) 09/18/23 05:44 RDW Std Deviation 55.8 fL (36.4-46.3) H 09/18/23 05:44 RDW Coeff of Mariel 15.9 % (11.5-14.5) H 09/18/23 05:44 Plt Count 115 K/uL (130-400) L 09/18/23 05:44 MPV 12.1 fL (9.4-12.4) 09/18/23 05:44 Immature Gran % (Auto) 0.6 % 09/15/23 06:02 Neut % (Auto) 92.1 % 09/15/23 06:02 Lymph % (Auto) 4.2 % 09/15/23 06:02 [place] % (Auto) 2.7 % 09/15/23 06:02 Eos % (Auto) 0.2 % 09/15/23 06:02 Baso % (Auto) 0.2 % 09/15/23 06:02 Reticulocyte % (Auto) 4.31 % (0.50-2.00) H 09/06/23 21:14 Neut # (Auto) 7.40 K/uL (1.40-6.50) H 09/15/23 06:02 Lymph # (Auto) 0.34 K/uL (1.20-3.40) L 09/15/23 06:02 [place] # (Auto) 0.22 K/uL (0.11-0.59) 09/15/23 06:02 Eos # (Auto) 0.02 K/uL (0.00-0.50) 09/15/23 06:02 Baso # (Auto) 0.02 K/uL (0.00-0.20) 09/15/23 06:02 Reticulocyte # 0.100 10^6/uL (0.020-0.100) 09/06/23 21:14 Immature Gran # (Auto) 0.05 K/uL (0.01-0.20) 09/15/23 06:02 Absolute Nucleated RBC 0.02 K/uL (0.00-0.12) 09/18/23 05:44 Nucleated RBC % (auto) 0.3 % 09/18/23 05:44 Polychromasia 1+ 09/15/23 06:02 Target Cells 1+ 09/15/23 06:02 PT 14.9 Seconds (9.0-12.0) H 09/06/23 Unknown INR 1.4 (0.9-1.1) H 09/06/23 Unknown APTT 34 Seconds (21-31) H 09/06/23 Unknown PTT Ratio 1.3 09/06/23 Unknown Sodium 138 mmol/L (136-145) 09/18/23 05:44 Potassium 5.3 mmol/L (3.5-5.1) H 09/18/23 05:44 Chloride 102 mmol/L (98-107) 09/18/23 05:44 Carbon Dioxide 21 mmol/L (21-32) 09/18/23 05:44 Anion Gap 15 (3-11) H 09/18/23 05:44 BUN 156 mg/dl (6-23) H 09/18/23 05:44 Creatinine 4.40 mg/dl (0.6-1.4) H 09/18/23 05:44 Est Cr Clr Drug Dosing 15.8 ml/min 09/18/23 05:44 Est GFR ( Amer) 13.7 ml/min 09/18/23 05:44 Est GFR (Non-Af Amer) 11.8 ml/min 09/18/23 05:44 BUN/Creatinine Ratio 35.5 (10-20) H 09/18/23 05:44 Glucose 79 mg/dl (70-99(Fasting)) 09/18/23 05:44 POC Glucose 88 mg/dl (70-99) 09/07/23 16:15 Lactate 1.3 mmol/L (0.4-2.0) 09/07/23 04:49 Calcium 8.7 mg/dl (8.6-10.3) 09/18/23 05:44 Phosphorus 4.1 mg/dl (2.5-4.9) 09/07/23 04:49 Magnesium 2.4 mg/dl (1.7-2.4) 09/15/23 06:02 Total Bilirubin 1.1 mg/dl (0.2-1.0) H 09/18/23 05:44 Direct Bilirubin 0.6 mg/dl (0-0.2) H 09/06/23 Unknown AST 17 U/L (13-39) 09/18/23 05:44 ALT < 3 U/L (7-52) L 09/18/23 05:44 Alkaline Phosphatase 192 U/L (34-104) H 09/18/23 05:44 Troponin I High Sens 326.9 pg/ml (0-20) H* 09/06/23 Unknown B-Natriuretic Peptide 255 pg/ml (0-100) H 09/06/23 18:50 Total Protein 6.1 gm/dl (6.0-8.3) 09/18/23 05:44 Albumin 2.7 gm/dl (3.4-5.0) L 09/18/23 05:44 Globulin 3.4 gm/dl (2.5-4.0) 09/18/23 05:44 Albumin/Globulin Ratio 0.8 (0.9-2) L 09/18/23 05:44 Procalcitonin 1.96 ng/ml (0-0.5) H 09/07/23 04:49 Random Cortisol 23.84 mcg/dl 09/06/23 21:14 Urine Color Yellow 09/06/23 Unknown Urine Appearance Cloudy (Clear) A 09/06/23 Unknown Urine pH 5.0 (4.5-7.5) 09/06/23 Unknown Ur Specific [place] 1.022 (1.000-1.030) 09/06/23 Unknown Urine Protein 2+ (Negative) H 09/06/23 Unknown Urine Glucose (UA) Negative (Negative) 09/06/23 Unknown Urine Ketones Trace (Negative) H 09/06/23 Unknown Urine Blood Trace (Negative) H 09/06/23 Unknown Urine Nitrite Negative (Negative) 09/06/23 Unknown Urine Bilirubin Negative (Negative) 09/06/23 Unknown Urine Urobilinogen Negative (Negative) 09/06/23 Unknown Ur Leukocyte Esterase Trace (Negative) H 09/06/23 Unknown Urine WBC (Auto) 0-5 /hpf (0-5) 09/06/23 Unknown Urine RBC (Auto) 3-5 /hpf (0-2) H 09/06/23 Unknown U Hyaline Cast (Auto) 3-5 /lpf (0-2) H 09/06/23 Unknown U Epithel Cells (Auto) 3-5 /hpf (0-2) H 09/06/23 Unknown Urine Bacteria (Auto) None Seen (None Seen) 09/06/23 Unknown Fluid Neutrophils % 91 % 09/07/23 Unknown Fluid Lymphocytes % 1 % 09/07/23 Unknown Fluid Meso/Macro/[place] % 8 % 09/07/23 Unknown Fluid Comment 09/07/23 Unknown Peritoneal Color Yellow 09/07/23 Unknown Peritoneal Appearance Hazy 09/07/23 Unknown Peritoneal WBC (Auto) 2938 /ul (0-300) H 09/07/23 Unknown Peritoneal RBC (Auto) < 2000 /uL 09/07/23 Unknown Peritoneal Tot Protein 4.0 gm/dl 09/07/23 Unknown Peritoneal Albumin 1.9 gm/dl 09/07/23 Unknown Nasal Screen MRSA (PCR) Negative (Negative) 09/06/23 Unknown Stl C. diff Tox B Gene Negative Cdiff Gene (Neg) 09/18/23 17:00 P. aeruginosa (PCR) DETECTED (NotDetected) A 09/06/23 16:28 blaIMP Car res Gene PCR Not Detected (NotDetected) 09/06/23 16:28 KPC-Carbap Res Gene PCR Not Detected (NotDetected) 09/06/23 16:28 blaNDM Car Res Gene PCR Not Detected (NotDetected) 09/06/23 16:28 blaVIM Car Res Gene PCR Not Detected (NotDetected) 09/06/23 16:28 CTX-M Gene Resistance (PCR) Not Detected (NotDetected) 09/06/23 16:28 Bld Cult ID Panel PCR See PCR Comment (NotDetected) 09/06/23 16:28 Blood Type O Positive 09/06/23 21:14 Antibody Screen NEGATIVE 09/06/23 21:14 Impressions Chest X-Ray 09/07/23 07:31 XR chest 1V portable CLINICAL HISTORY: f/u COMPARISON STUDY: Chest CT July 2023. Chest radiograph September 06, 2023. FINDINGS: Left subclavian pacer and right PICC remain in place. There is no pneumothorax. Small to moderate left pleural effusion is again noted. Cardiomegaly is unchanged. Left basilar opacity persists. Pulmonary edema has increased. Low lung volumes are unchanged. IMPRESSION: 1. Cardiomegaly. Increase in pulmonary edema. 2. Small to moderate left pleural effusion with persistent left basilar opacity which could reflect pneumonia or atelectasis. ACT 112: Negative or not required by law. Electronically signed by: Joshua Piña M.D. 09/07/2023 8:26 AM Diagnostic Findings See above PG Care Time/CCT Total # of Minutes Spent Total Time Spent with Patient: Total time spent is greater than 50% in coordination of care (as documented) at patient's floor/unit and/or counseling patient: I spent 60 minutes overall addressing this case: 10 min in medical data review/discussion with referring provider(s) and/or preparation for the visit 15 min in direct interaction with the patient/exam 00 min in Advance Care Planning/Goals of Care discussions as detailed above in note (must be >16min) 15 min in subsequent review and synthesis of assessment and plan 20 min communicating with other providers regarding the patient's case: Primary team, nursing [place] [address] SUB INP/OBS CARE 350MIN Patient Type Established History Comprehensive Exam Comprehensive Medical Decision Making High Complexity Diagnoses Dyspnea and respiratory abnormalities R06.00; R06.89 Persistent wound pain R52 Weakness generalized R53.1 Failure to thrive syndrome, adult R62.7 Palliative care by specialist Z51.5
[2023-09-26] MEDS: LORazepam 1 MG in SYRINGE 0.5 ML IV PRN (16:51)
--- NOTE | 2023-09-26 19:42 | Hospitalist Progress Note ---
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 He is now pursuing palliative measures and remains confused, likely due to uremia He is still eating and drinking small amounts at this point. 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 wounds on left heel and sacrum Currently not on any antibiotics (4) FILI (acute kidney injury): Plan: No further treatment, comfort measures (5) SBP (spontaneous bacterial peritonitis): Plan: Pseudomonas, no further treatment (6) Bacteremia due to Pseudomonas: Plan: No further treatment (7) Cardiac amyloidosis: Plan: Noted, contributed to cardiorenal syndrome Plan Disposition-continued stay in the hospital until he passes as per family's wishes as they cannot care for him at home Admission and Anticipated Discharge Date Admission Date: September 06, 2023 Subjective Patient complains of pain in his back today and did except some pain medicine he reports "as a one-time thing." He is intermittently asking for changes in position and at other times is declining for nurses to change his position. His does not have any questions for me. I discussed his care with the palliative medicine nurse practitioner as well as with nursing Physical Exam Constitutional: + thin; no acute distress Respiratory: normal respiratory effort; no cough Cardiovascular: Extremities: + edema (2+ pitting edema to the knees bilaterally) Results & Data Results & Data Vital Signs (Past 12 Hours) Vital Signs O2 Del Method 09/26/23 08:00 Room Air PG Care Time/CCT Total # of Minutes Spent Total Time Spent with Patient: Total time spent is greater than 50% in coordination of care (as documented) at patient's floor/unit and/or counseling patient: Coding Level of Care Code 58398 SUB INP/OBS CARE 1/25MIN Diagnoses Weakness generalized R53.1 Dyspnea and respiratory abnormalities R06.00; R06.89 Persistent wound pain R52 FILI (acute kidney injury) N17.9 SBP (spontaneous bacterial peritonitis) K65.2 Bacteremia due to Pseudomonas R78.81; B96.5 Cardiac amyloidosis E85.4; I43
[2023-09-27] MEDS ORDERED: HYDROmorphone INJ 1 MG/ML SYRINGE IV PRN ×3 (09:59→10:00)
[2023-09-27] MEDS ORDERED: HYDROmorphone BOLUS from BAG IV PRN (10:02)
[2023-09-27] MEDS ORDERED: LORazepam 1 MG in SYRINGE 0.5 ML IV PRN (10:06)
--- NOTE | 2023-09-27 10:37 | Communication Note ---
Date of Service: September 27, 2023 Palliative Medicine Brief Note Freya Krysten continues to decline and has transitioned to an active dying process with a variable respiratory rate currently 7 breaths/min. He has required increased frequency of dosing with as needed Dilaudid for comfort due to pain and dyspnea. I called /no answer/LMVM and I called dtr Tosha who is going to notify the rest of their family/close friends. 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 Cochran (?sp) to provide additional support for . I have notified propulsion systems engineer as well. Daughters are coming but per Olga they are 8 hr away and arrival is likely tomorrow. She expressed a lot of appreciation to all of the medical center teams for the compassion we are giving to his care. Nursing and primary team aware. Thank you for allowing us to participate in the ongoing care of this patient. Please page with any additional concerns. Atul Estrada DNP Director, Palliative Medicine
[2023-09-27] MEDS: HYDROmorphone/NSS 100 MG/100 ML BAG IV SCH (10:54)
--- NOTE | 2023-09-27 14:46 | Palliative Care Progress Note ---
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 Please page with any additional concerns. Atul Estrada DNP Director, Palliative Medicine Admission and Anticipated Discharge Date Admission Date: September 06, 2023 Subjective continues decline worsening resp distress, grimacing and moaning at times no longer awake and interactive not taking PO x 24 hr increased use of PRN meds Review of Systems Review of Systems: Unobtainable due to reduced consciousness Physical Exam Physical Exam: does not respond to voice grimaces with sternal rub inc resp effort with periods fo apnea lasting 5-7 sec s1s2 abd distension BLE edema venous insiuff changes open wounds toes skin pale, cool, no mottling Results & Data Vital Signs (Past 12 Hours) Vital Signs Resp O2 Del Method 09/27/23 09:52 7 L 09/27/23 08:30 Room Air PG Care Time/CCT Total # of Minutes Spent Total Time Spent: 60 Total Time Spent with Patient: Total time spent is greater than 50% in coordination of care (as documented) at patient's floor/unit and/or counseling patient: Coding [place] [address] SUB INP/OBS CARE 3/50MIN Patient Type Established History Comprehensive Exam Comprehensive Medical Decision Making High Complexity Diagnoses Dyspnea and respiratory abnormalities R06.00; R06.89 Persistent wound pain R52 Weakness generalized R53.1 Failure to thrive syndrome, adult R62.7 Palliative care by specialist Z51.5
--- NOTE | 2023-09-27 16:25 | Discharge Summary ---
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 Pursued palliative measures and palliative medicine consultation, he peacefully with his family and friends at bedside on 09/27/23 at 1615 (6) Cardiac amyloidosis: Noted, contributed to cardiorenal syndrome (7) Persistent wound pain: Patient has heel wound previously cultured Pseudomonas with persistent drainage. wounds on left heel and sacrum Plan Disposition- at 1615 on 09/27/23. 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 At this time has completed nearly all of a 6 week course of cefazolin for the bacteremia - extended course because of presence of pacemaker leads. He returned home from [facility] late last week and feels that he initially did very well at home, was feeling good and was eating well. He had bilateral steroid injections for his shoulders by outpatient ortho. He has had a steady decline since Monday. Has had nausea, poor oral intake, malaise. Dr. Torres visited him at home, noted hypotension, progressive anasarca, worsening of anemia with Hg 7.8 and worsening renal failure with BUN/Cr to 104/2.7. He refused to come to the hospital, stated "I'm dying" Was feeling terrible overnight, not sleeping, nausea. Planned for admission for comfort measures today, however, once in the ED he requested full code and full treatment measures. Main point of discomfort currently is he feels like he needs to urinate but cannot and has not urinated all day. Currently denies dyspnea and chest pain. Back pain is at baseline and left heel wound is not worse wrt drainage or pain. No fevers/chills. He has upper abdominal/rib discomfort which he attributes to therapist pulling on a gait belt. There is significant ecchymosis of abdominal wall which he and his state has been present for some time (since he was in rehab). He is no longer taking apixaban. Discharge Exam Constitutional Pronounced -see note Updated Medication List Medication Instructions Recorded Confirmed Type tafamidis meglumine 20 mg capsule 20 mg PO DAILY 02/24/23 09/04/23 History (Vyndaqel) torsemide 10 mg tablet 50 mg PO UD 06/05/23 09/04/23 History spironolactone 25 mg tablet 25 mg PO UD 08/02/23 09/04/23 History acetaminophen 325 mg tablet 650 mg (2 x 325 mg) PO Q4H PRN #0 08/12/23 09/04/23 Rx tabs tamsulosin 0.4 mg capsule 0.4 mg PO HS #0 caps 08/12/23 09/04/23 Rx finasteride 5 mg tablet (Proscar) 5 mg PO DAILY 09/04/23 09/04/23 History Hospital Stay Data Consultations 09/06/23 16:53 ED Decision to Admit Stat 09/06/23 20:06 Consult Dealer Analyst Routine 09/06/23 20:59 Consult Nephrology Routine 09/07/23 06:56 Consult Palliative Care Routine 09/07/23 07:24 Consult Nephrology Routine Diagnostic Imagining Performed 09/07/23 08:25 US point of care ultrasound Urgent Total Time Total Time Spent Total Time Spent (In Minutes): 20 min Coding Level of Care Code 33376 IN/OBS DISCH 30 MIN/LESS Diagnoses Cardiorenal syndrome I13.10 Bacteremia due to Pseudomonas R78.81; B96.5 SBP (spontaneous bacterial peritonitis) K65.2 FILI (acute kidney injury) N17.9 Weakness generalized R53.1 Cardiac amyloidosis E85.4; I43 Persistent wound pain R52
--- NOTE | 2023-09-27 16:25 | Hospitalist Progress Note ---
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 He is now pursuing palliative measures and remains confused, likely due to uremia He is still eating and drinking small amounts at this point. 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 wounds on left heel and sacrum Currently not on any antibiotics (4) FILI (acute kidney injury): Plan: No further treatment, comfort measures (5) SBP (spontaneous bacterial peritonitis): Plan: Pseudomonas, no further treatment (6) Bacteremia due to Pseudomonas: Plan: No further treatment (7) Cardiac amyloidosis: Plan: Noted, contributed to cardiorenal syndrome Plan Disposition-continued stay in the hospital until he passes as per family's wishes as they cannot care for him at home Admission and Anticipated Discharge Date Admission Date: September 06, 2023 Subjective Pt more uncomfortable this AM and in resp distress, was started on dilaudid gtt by Palliative Med Unresponsive when I saw him, family and friends at bedside Physical Exam Constitutional: + thin; no acute distress Respiratory: no cough Cardiovascular: Rate/Rhythm: regular rate and regular rhythm Results & Data Results & Data Vital Signs (Past 12 Hours) Vital Signs Resp O2 Del Method 09/27/23 15:30 3 L 09/27/23 09:52 7 L 09/27/23 08:30 Room Air PG Care Time/CCT Total # of Minutes Spent Total Time Spent with Patient: Total time spent is greater than 50% in coordination of care (as documented) at patient's floor/unit and/or counseling patient: Coding Diagnoses Weakness generalized R53.1 Dyspnea and respiratory abnormalities R06.00; R06.89 Persistent wound pain R52 FILI (acute kidney injury) N17.9 SBP (spontaneous bacterial peritonitis) K65.2 Bacteremia due to Pseudomonas R78.81; B96.5 Cardiac amyloidosis E85.4; I43
--- NOTE | 2023-09-28 08:14 | Death Pronouncement Note ---
Date of Service September 27, 2023 Pronouncement Note Admission Date September 06, 2023 Date and Time of Date of : 09/27/23 Time of : 16:15 Preliminary Cause of (1) Cardiorenal syndrome: (2) Bacteremia due to Pseudomonas: (3) SBP (spontaneous bacterial peritonitis): (4) FILI (acute kidney injury): (5) Weakness generalized: (6) Cardiac amyloidosis: (7) Persistent wound pain: Summary see discharge summary Additional Data Confirmation of : no pulse, no respirations, no heart sounds and pupils fixed and dilated Pronouncement Performed By: Attending Physician Family: at bedside Attending/PCP notified?: Yes Attending physician: Flakita Archibald MD Was code activated?: No Autopsy requested?: No Coding Level of Care Code None Diagnoses Cardiorenal syndrome I13.10 Bacteremia due to Pseudomonas R78.81; B96.5 SBP (spontaneous bacterial peritonitis) K65.2 FILI (acute kidney injury) N17.9 Weakness generalized R53.1 Cardiac amyloidosis E85.4; I43 Persistent wound pain R52
== END 2023-09-27 19:30 | disposition expired | DRG 871 ==
LOC: SUATTDRO → ED 15:23 → 1E 17:38 → SUATTDRO 17:38 → 1E 19:13 → 3E 09-11 14:45